=== PATIENT | male | born 1950 | race Caucasian/White ===

== ENCOUNTER → 2017-11-20 06:22 | Outpatient (CLI) | payer MEDICARE, OTHER, SELFPAY ==
--- NOTE | 2017-11-20 14:36 | STRESSREP ---
Stress Test Report Pharmacologic myocardial perfusion stress test. 67-year-old man with a history of coronary artery disease status post carotid bypass grafting. Medications aspirin omeprazole atorvastatin clopidogrel losartan and metoprolol. Stress protocol: EKG demonstrates normal sinus rhythm with rate of 62 bpm normal intervals and noted resting blood pressure is 138/82 mmHg. 0.4 mg regadenoson was infused per usual protocol followed by rapid intravenous saline flush injection. Continuous EKG monitoring was performed. The maximum heart rate attained was 103 bpm which was 66% of maximum predicted heart rate the maximum workload attained was 1 metabolic equivalent. At rest there were no ST or T-wave changes noted suggest abnormal flow reserve at peak infusion no ST or T-wave changes were noted suggest abnormal flow reserve. Resting blood pressure 138/82 with a final blood pressure 132/82. Myocardial perfusion protocol. 10.0 mCi of technetium 99m sestamibi was injected at rest. 0.4 mg regadenoson was infused per usual protocol peak infusion 36.0 mCi sestamibi was injected stress images were obtained stress and rest images were reconstructed and compared in the short axis vertical long and horizontal long axis. Gated images were also obtained. Perfusion SPECT analysis. Review of the stress images demonstrate normal uptake of tracer noted in the septum lateral wall and inferior wall on the stress images. There is a moderate amount of perfusion defect noted in the mid anterior wall. This is present on the stress images and on the resting images improves to suggest a moderate amount of ischemia. Gated SPECT analysis: Gated ejection fraction is noted to be 64%. Conclusion Abnormal pharmacologic myocardial perfusion stress test with evidence of mid anterior ischemia medium-sized zone. Preserved ejection fraction
== END ==
PROVIDERS: Family Provider Family Medicine; PCP Family Medicine; Visit Provider Internal Medicine Cardiovascular Disease
DX: I25.10 Atherosclerotic heart disease of native coronary artery without angina pectoris (principal); Z95.1 Presence of aortocoronary bypass graft
CPT/HCPCS: 78452; 93017; A9500; A4216; J2785

== ENCOUNTER → 2017-11-22 09:55 | Outpatient (CLI) | payer MEDICARE, OTHER, SELFPAY ==
--- NOTE | 2017-11-22 09:57 | RAD_ITS ---
STUDY: X-RAY CHEST REASON FOR EXAM: Male, 67 years old. Abnormal stress test. TECHNIQUE: PA and lateral views of the chest. COMPARISON: None. FINDINGS: The lungs are clear and expanded. Scattered calcified granulomas. There is no demonstrated pleural abnormality. Normal size heart. Normal mediastinum and sury. Normal visualized pulmonary arteries. Normal visualized aortic arch and descending thoracic aorta. There are diffuse degenerative changes of the visualized thoracic spine. Normal visualized ribs, clavicles, and shoulders. There is no demonstrated abnormality of the visualized soft tissue structures of the upper abdomen. RAD/Chest PA and Lateral IMPRESSION: Normal x-ray examination of the chest. Electronically Signed: Tung Dick MD at 12:54 EST Tel [phone], Service support ,
[2017-11-22 11:14] LABS: Hematocrit 43.4 % (40-54); Hemoglobin 14.4 g/dl (13.0-16.5); Mean Corp Hgb Conc 33.2 g/gl (32-36); Mean Corpuscular Hgb 30.3 pg (27.0-32.0); Mean Corpuscular Volume 91.2 fL (80-94); Platelet Count 318 K/mm3 (150-450); RBC Distribution Width SD 46.1 fl (35.1-43.9); Red Blood Count 4.76 M/mm3 (4.6-6.2); White Blood Count 6.9 K/mm3 (4.4-11.0)
[2017-11-22 11:16] LABS: Scan Indicated on CBC? Y/N NO
[2017-11-22 11:25] LABS: International Normalized Ratio 1.1; Prothrombin Time (Protime)PT. 13.7 SECONDS (11.7-14.9)
[2017-11-22 11:33] LABS: Anion Gap 9 (5-15); BUN 26 mg/dL (7-18); Calcium,Total 8.7 mg/dL (8.5-10.1); Chloride 104 mmol/L (98-107); Creatinine, Serum 0.93 mg/dL (0.70-1.30); EST Glomerular Filtration Rate 87 mL/min (>60); Est Glom Filt Rate - Afr Amer 105 mL/min (>60); Glucose 96 mg/dL (74-106); Potassium 3.7 mmol/L (3.5-5.1); Sodium Level 139 mmol/L (136-145)
== END ==
PROVIDERS: Family Provider Family Medicine; PCP Family Medicine; Visit Provider Internal Medicine Cardiovascular Disease
DX: I25.10 Atherosclerotic heart disease of native coronary artery without angina pectoris (principal); R94.39 Abnormal result of other cardiovascular function study; Z98.890 Other specified postprocedural states; Z79.01 Long term (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 of anticoagulants
CPT/HCPCS: 36415; 71046; 80048; 85027; 85610

== ENCOUNTER → 2017-11-27 08:52 | Day surgery (SDC) | payer MEDICARE, OTHER, SELFPAY ==
[2017-11-24 14:23] VITALS: BMI 33.2
--- NOTE | 2017-11-27 12:43 | CL.D_ITS ---
Patient Name: RUSLAN DE LA GARZA Study Date: 11/27/2017 Performing: Baldev Freed MD Ht: 70.86 inches 180 cm : 1950 Wt: 238.1 lbs 108 kg Age: 67 Gender: male BSA: 2.27 PROCEDURE(S) PERFORMED XH79-BAT/COR CLINICAL PROFILE AND INDICATIONS INDICATIONS: 67-year-old man with a history of abnormal stress test, 74 YO LADY WITH CHEST PAIN Stress/Imaging Standard Exercise Stress Test: Yes Result: Positive Low RiskStress/Image Study Per formed: No CAD Presentations: No Sxs, no angina. Symptom unlikely to be ischemic. CONCLUSIONS Non obstructive coronary arteries Mild CAD with no high grade obstructive disease RECOMMENDATIONS Medical therapy Medical therapy DESCRIPTION OF PROCEDURE The patient arrived to the procedure lab. The risks and benefits of the procedure as well as a full d escription of our services here and current unavailability of surgical backup were fully explained to the patient and/or their significant other prior to the catheterization. The Timeout was completed, verifying the correct patient and procedure. The patient's procedural site was prepped and draped in the usual fashion. Local anesthetic was given subcutaneously to right radial region with Lidocaine 2% . Using a modified Seldinger technique, arterial access was obtained via the right radial artery, a 6 Fr sheath was inserted. Left Coronary Artery selective angiography was performed in multiple views u sing a 5 Fr. 4.0 [place]aver[place] catheter. Right Coronary Artery selective angiography was then performed in mu ltiple views using a 5 Fr. 4.0 [place]ly catheter.The arterial sheath was pulled and a TR Band was applie d for hemostasis w15ml air CORONARY ANGIOGRAPHY DOMINANCE: Right Dominant LEFT HEART ASSESSMENT Left Ventricular Ejection Fraction: by Echo 60 % Normal LV wall motion Normal Left Ventricular systolic function LEFT MAIN: Angiographically normal, Angiographically normal LEFT ANTERIOR DECENDING ARTERY: Mild luminal irregularities, Mild luminal irregularities less than 30 % MID LAD: Moderate luminal irregularities up to 50% DIAGONAL 1: Ostial - 70 % Stenosis CIRCUMFLEX ARTERY: Angiographically normal, Mild luminal irregularities RIGHT CORONARY ARTERY: Mild luminal irregularities Mild luminal irregularities less than 30% COMPLICATIONS No Complications PROCEDURE MEDICATIONS Fentanyl 50 mcg IV Versed 1 mg IV Oxygen: 2 L/min via nasal cannula Heparin diluted in 23cc Heparinized saline. Patient given 10cc IA of this solution. 11/27/2017 12:13: 28 Verapamil 2.5mg, Ntg 100mcgs, 2000 units of Heparin diluted in 23cc Heparinized saline. Patient give n 10cc IA of this solution. 11/27/2017 12:13:28 SUMMARY OF HEMODYNAMIC DATA Time AIR REST ECG 11:35:51 AO 107/65 (80) SA 12:15:35 ECG 12:33:16 Signed By Baldev Freed MD On 11/27/2017 2:39:11 PM Baldev Freed MD
== END ==
PROVIDERS: Visit Provider Internal Medicine Cardiovascular Disease
DX: R94.39 Abnormal result of other cardiovascular function study (principal); I25.10 Atherosclerotic heart disease of native coronary artery without angina pectoris; I25.2 Old myocardial infarction; E78.5 Hyperlipidemia, unspecified; I10 Essential (primary) hypertension; I25.810 Atherosclerosis of coronary artery bypass graft(s) without angina pectoris; Z98.61 Coronary angioplasty status; Z79.82 Long term (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 of aspirin; Z79.02 Long term (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 of antithrombotics/antiplatelets; Z79.899 Other long term (current) drug therapy
CPT/HCPCS: 93454; 99152; 99153; J7040; Q9967; C1769; C1894

== ENCOUNTER 2018-02-03 16:41 | Emergency (ER) | payer MEDICARE, OTHER, SELFPAY ==
[2018-02-03 16:42] VITALS: BP 153/78; PULSE 83; RESP 20; TEMP 36.5; O2SAT 96; BMI 33.1
--- NOTE | 2018-02-03 17:03 | ED.VISSUMM ---
- ER Visit Summary Date of Service: 02/03/18 Chief Complaint: Left leg pain and swelling History of Present Illness: The patient is a 67 M with a 3 day history of left calf pain and swelling. Patient states he did have a recent cortisone injection in his left knee. 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 He also has had recent exercise on a bike and is not sure if he may pulled a deep muscle. He does not remember a specific injury. Patient has no personal history of DVTs. He denies chest pain or shortness of breath. Physical Examination: Vital signs are unremarkable. Patient sitting upright in bed no acute distress. Heart is regular rate and rhythm. Lung sounds are clear. Abdomen is soft nontender. Lower extremity examination was mild tenderness to the left lower leg with slight edema when compared to the right. There is no erythema or warmth. He has strong distal pulses. There are no palpable cords. Test Results: [] Emergency Department Course and Treatment: I discussed with the patient the concern for possible DVT. He presents on a Monday afternoon we do not have ultrasound available. He will be given a dose of Lovenox for tonight and will return tomorrow for outpatient ultrasound of his leg. Order for this has been written. Treatment Plan: [] Disposition: Discharge Impression: Left leg edema This note was generated with [employer] dictation software. It may contain incorrect words, spelling, and punctuation that were not noted in review of the chart prior to signing ED Disposition - Plan for ED Patient: Chief Complaint: Lower Extremity Injury Referrals: Saul Rubio [Primary Care Provider] -
--- NOTE | 2018-02-03 17:05 | ED.DEP ---
ED Disposition - Plan for ED Patient: Disposition: Home or Assisted Living Chief Complaint: Lower Extremity Injury Instructions: ED Leg Swelling Unilateral Referrals: Saul Rubio [Primary Care Provider] - Additional Instructions: You will receive a phone call tomorrow morning to come in for an outpatient ultrasound of your leg.
[2018-02-03] MEDS: Enoxaparin 100 MG/ML Syringe SC (17:12)
[2018-02-03 17:31] VITALS: BP 141/85; PULSE 86; RESP 14; O2SAT 95
== END 2018-02-03 17:38 | disposition home or self-care (01) ==
PROVIDERS: Emergency Provider Emergency Medicine
DX: R60.0 Localized edema (principal); I25.2 Old myocardial infarction; Z87.891 Personal history of nicotine dependence; Z79.82 Long term (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 of aspirin
CPT/HCPCS: 96372; 99282

== ENCOUNTER → 2018-02-04 09:59 | Outpatient (CLI) | payer MEDICARE, OTHER, SELFPAY ==
--- NOTE | 2018-02-04 10:30 | VDLE_ITS ---
Reason For Study: LEG SWELLING RIGHT LEFT CFV is compressible, spontaneous, phasic, GSV is normal. competent and demonstrates normal CFV is compressible, spontaneous, phasic, augmentation. competent, and demonstrates normal Procedure augmentation. Exam performed in department. FV is compressible, spontaneous, phasic, competent and demonstrates normal augmentation. POP V is compressible, spontaneous, phasic, competent and demonstrates normal augmentation. T/P Trunk is compressible. PTV is compressible. LT PerV is compressible. Interpretation Summary Deep veins of the left lower extremity are patent and compressible segmentally. There is no evidence of left lower extremity deep vein thrombosis. Valvular competence appears intact within the proximal deep venous system on the left . The left greater saphenous vein appears patent and compressible segmentally. Ordering Physician: Jeaneth Guillaume Referring Physician: Luan Rubio M.D. Performed By: Kaylan Law RVT
== END ==
PROVIDERS: Visit Provider Emergency Medicine
DX: M79.89 Other specified soft tissue disorders (principal)
CPT/HCPCS: 93971

== ENCOUNTER 2018-03-05 06:38 | Inpatient (IN) | payer MEDICARE, OTHER, SELFPAY ==
[2018-02-26 14:04] VITALS: BP 126/81; PULSE 89; RESP 17; TEMP 37.1; O2SAT 97; BMI 34.1
[2018-02-26 14:49] LABS: Hematocrit 44.6 % (40-54); Hemoglobin 14.7 g/dl (13.0-16.5); Mean Corpuscular Hgb 29.5 pg (27.0-32.0); Mean Corpuscular Volume 89.6 fL (80-94); Mean Platelet Vol. 9.8 fl (6.2-12.0); Platelet Count 250 K/mm3 (150-450); RBC Distribution Width CV 13.4 % (11.6-14.6); RBC Distribution Width SD 43.9 fl (35.1-43.9); Red Blood Count 4.98 M/mm3 (4.6-6.2); Scan Indicated on CBC? Y/N NO; White Blood Count 7.4 K/mm3 (4.4-11.0)
[2018-02-26 15:10] LABS: Anion Gap 6 (5-15); BUN 20 mg/dL (7-18); BUN/Creat Ratio 18.5 RATIO (10-20); Calcium,Total 8.8 mg/dL (8.5-10.1); Chloride 106 mmol/L (98-107); Creatinine, Serum 1.08 mg/dL (0.70-1.30); EST Glomerular Filtration Rate 73 mL/min (>60); Est Glom Filt Rate - Afr Amer 88 mL/min (>60); Estimated Creatinine Clearance 70.41 ml/min; Glucose 148 mg/dL (74-106); Sodium Level 140 mmol/L (136-145)
--- NOTE | 2018-03-02 10:27 | CASEMGMT ---
RN CM Preop Call. Introduced role of CM via phone. Pt scheduled for LTKR on 03/05/18. DC planning needs assessment completed. DME available: walker, crutches DME needs: none identified Therapy on dc: [facility] Transportation: RN CM will f/u with pt after surgery and will assist with any dc needs. Ashley BECKERN RN
[2018-03-05] VITALS (10 sets, daily range): BP systolic 104–165; BP diastolic 62–99; PULSE 67–93; RESP 16–18; TEMP 35.9–37.1; O2SAT 94–98; BMI 34.1
[2018-03-05] MEDS: oxyCODONE HCl Cr 10 MG Tablet PO (07:21)
[2018-03-05] MEDS: Acetaminophen 500 MG Tablet 1000 MG PO ×3 (07:21→21:04)
[2018-03-05] MEDS: Lactated Ringers 1,000 ML 999 ML IV (07:39)
[2018-03-05] MEDS: Cefazolin 2 GM in 0.9% Normal Saline 100 ML IV (08:51)
--- NOTE | 2018-03-05 09:03 | OP.PCM_ITS ---
Report of Operation Date of Procedure: 03/05/18 Pre-Operative Diagnosis: Severe end-stage osteoarthritis left knee Post-Operative Diagnosis: Severe end-stage osteoarthritis left knee Surgery/Procedure Performed:: Total knee arthroplasty left Description of Surgical Findings:: Severe varus alignment with end-stage osteoarthritis medial compartment periarticular osteophytes eburnation of bone tricompartmentally disulfurizer tender: Eloy Talbot Type of Anesthesia:: Spinal Anesthesiologist: Ishan Griffith Special Medications: TXA Specimen's removed: Bone and soft tissue Estimated Blood Loss (mL): 100 Fluids Replaced: See anesthesia report Description of Procedure: Implants: [employer] triathlon size 7 CR femur, 7 tibia, 38 mm patella all cemented with Simplex. Size 13 mm CS articulating surface Indications: Patient has severe end-stage osteoarthritis diagnosed via x-rays in the knee. They have failed all forms of conservative measures including activity modification, injections, anti-inflammatories, use of assistive device. The patient has pain that affects on a daily basis and prevents him from doing things that they enjoyed. They have elected to undergo the above procedure. The risks of the procedure were discussed at length and their questions were answered. Procedure description: The patient was greeted in the preoperative area. The left knee was then marked with a surgical marker. Patient was then taken to or [address]. They were administered a dose of antibiotics as well as tranexamic acid. Once adequate anesthesia was obtained and airway was secured to placed in supine position on the operating room table. A well-padded tourniquet was placed on the affected extremity. Leg was then prepped and draped in the usual sterile fashion from the knee down. Ioban was used on the skin. Surgical timeout was then performed and confirmed with all present. Six-inch Esmarch was used to examine the limb and tourniquet was then inflated to 250 mmHg. A longitudinal incision was then planned and carried out in the anterior aspect of the knee. The dissection was then carried the length of the incision the extensor mechanism was identified. Standard medial parapatellar arthrotomy was then performed revealing severe eburnation of bone and periarticular osteophytes. There is complete loss of cartilage especially in the medial compartment with varus alignment. Anterior fat pad was removed for visualization purposes and the anterior medial aspect of the tibia was skeletonized for exposure to the knee. The knee was then flexed the patella was inverted. Opening reamer was then used in the femur approximately 1 cm anterior to the attachment of the PCL. The intramedullary valgus wand was then placed in the femur set at 5? of valgus. The distal femoral cutting jig was then applied to the femur with anticipated resection of approximately 8 mm. This was then made with a oscillating saw. The sizing guide was then placed referencing off the posterior condyles and also reference off the epicondylar axis. This was measured and the appropriate size 4-in-1 cutting jig was then applied to the distal femur. Anterior posterior cuts were made followed by the anterior and posterior chamfer cuts. These bony pieces and fragments were removed and placed on the back table. Posterior retractor was then utilized and the tibia was subluxed anteriorly. Extramedullary tibial alignment jig was then applied to the tibia referencing off the medial one third of the tibial tubercle the anterior tibial spine the middle aspect of the tibiotalar joint. Also reference off patient's [place] slope. The tibial cutting jig was then pinned with anticipated resection of 2 mm off of the deficient medial tibial condyle. This cut was made with the oscillating saw. Once this was complete a laminar sanding line operator was utilized in both medial lateral meniscus were removed and a posterior capsular osteophytes were also removed. Posterior capsule release was performed in the posterior capsule as well as the geniculate arteries are treated with the aqua Rk. The tibia was incised and the appropriate sized tibial tray was then pinned. The femoral box cutting jig was then applied to the femur and the box was prepared removing a portion of the intercondylar notch. The femoral trial was then placed and the knee was trialed. Full flexion-extension were easily achieved. The knee seemed to balance quite nicely. Any remaining osteophytes were removed at this time. Once this was complete the patella was everted and the Aries patella reaming device was then utilized the patella was then placed in the appropriate jig and reamer was then used to remove approximately 9 mm of the undersurface of the patella. A soft tissue remaining was in the way was removed and patella trial was then placed listed maintain excellent tracking using the no thumbs technique. The tibial tray at this point was punched to accommodate the fins of the final implant. At this point cement was mixed on the back table. The trial components were removed and the knee was copiously irrigated. Did use a cocktail of injection for postoperative pain control. The final components were then cemented in the standard fashion and excess cement was removed with cement removal tools and patellar clamp is placed in the patella. As the cement had cured in full extension tourniquet was deflated and hemostasis was perfect with Bovie cautery as well as the aqua Manus. Needle is once again trialed with different size polyethylenes to ensure the full range of motion was achieved as well as excellent balancing ligamentously was achieved. At this point the knee was copiously irrigated. Final implant was then inserted locking mechanism was engaged and confirmed to be locked. The arthrotomy was then closed with #1 Vicryl aggravate type fashion interrupted. Subcutaneous tissue was closed with 0 Vicryl and surgical janet were placed in the skin. A occlusive silver impregnated dressing was then applied followed by well-padded sterile dressing secured with an Kenyon wrap. The patient was taken to the PACU in stable condition. No complications known at this time. Postoperatively we will maintain standard total knee postoperative protocol. The use of the physician assistant chief engineer was integral during this procedure. They assisted with positioning placement of the tourniquet retracting closure and placement of the dressing. The procedure would have been much more difficult without their expertise and assistance - Complications None known - Admit VTE Documentation VTE Present on Admission: Yes VTE Mechan Device Prophylaxis: SCD's, Thigh High SANDI Hose VTE Pharm Prophylaxis ordered?: Yes
--- NOTE | 2018-03-05 11:25 | RAD_ITS ---
STUDY: X-RAY - LEFT KNEE REASON FOR EXAM: Male, 67 years old. Total knee replacement. TECHNIQUE: AP and lateral view(s) of the knee. COMPARISON: None. FINDINGS: Normal visualized distal femur. Normal visualized proximal tibia and fibula. Normal proximal tibiofibular articulation. The patient is status post total knee replacement. There is good alignment. Postoperative soft tissue changes. RAD/Knee 1 or 2 Views IMPRESSION: Status post total knee replacement. There is good alignment. Postoperative soft tissue swelling. Electronically Signed: Tung Dick MD at 13:11 EDT Tel [phone], Service support ,
[2018-03-05] MEDS: Lactated Ringers 1,000 ML 125 ML IV (11:53)
[2018-03-05] MEDS: oxyCODONE 5 MG Tablet PO (14:30)
--- NOTE | 2018-03-05 15:37 | CHAPLAIN ---
Type of Pastoral Visit _x__ Initial Visit ___ Follow-up Visit ___ On-call Visit ___ General Patient Visit ___ Spiritual Assessment ___ Family Conference ___ Bereavement ___ Rapid Response ___ Code Blue ___ Other (describe below) Pastoral Care Referral From _x__ Patient ___ Family ___ Nurse ___ Physician ___ Paint Roller Assembler ___ High Heel Builder ___ Other (describe below) Sacrament/Intervention _x__ Active listening ___ Anointing ___ Samaritan ___ Bereavement ___ Communion ___ Jaymie exploration ___ ___ Life review _x__ Prayer ___ Reconciliation ___ Sacrament of Sick _x__ Supportive presence ___ Wedding ___ Other (describe below) Pastoral Comments
[2018-03-05] MEDS: Ketorolac 15 MG/ML Vial IV (16:38)
[2018-03-05] MEDS: Cefazolin 1 GM/50 ML BAG IV (16:42)
[2018-03-05] MEDS: Ondansetron 4 MG/2 ML Vial IV (16:47)
[2018-03-05] MEDS: morphine SR 15 MG Tablet PO (21:03)
[2018-03-05] MEDS: Senna/Docusate Sodium 1 Tablet 2 TABLET PO (21:04)
[2018-03-05] MEDS: Atorvastatin Calcium 80 MG Tablet PO (21:04)
[2018-03-05] MEDS: Pantoprazole Sodium 40 MG Tablet PO (21:04)
[2018-03-05] MEDS: Clopidogrel Bisulfate 75 MG Tablet PO (21:04)
[2018-03-06] VITALS (7 sets, daily range): BP systolic 135–162; BP diastolic 71–86; PULSE 75–94; RESP 16–18; TEMP 36.6–37.4; O2SAT 93–98
[2018-03-06] MEDS: Cefazolin 1 GM/50 ML BAG IV (00:07)
[2018-03-06] MEDS: 0.9% NaCl Peripheral Flush Adult/Peds IV (00:08)
[2018-03-06] MEDS: Ketorolac 15 MG/ML Vial IV (00:10)
[2018-03-06] MEDS: Acetaminophen 500 MG Tablet 1000 MG PO ×3 (05:20→22:47)
[2018-03-06] MEDS: Aspirin 81 MG TAB.CHEW PO (05:21)
[2018-03-06] MEDS: oxyCODONE 5 MG Tablet PO ×3 (05:21→17:02)
[2018-03-06] MEDS: Indomethacin 25 MG Capsule 50 MG PO ×2 (05:22→16:56)
[2018-03-06 06:32] LABS: Hematocrit 39.7 % (40-54); Mean Corp Hgb Conc 32.7 g/gl (32-36); Mean Corpuscular Hgb 29.5 pg (27.0-32.0); Mean Corpuscular Volume 90.2 fL (80-94); Mean Platelet Vol. 9.8 fl (6.2-12.0); Platelet Count 198 K/mm3 (150-450); RBC Distribution Width CV 13.4 % (11.6-14.6); RBC Distribution Width SD 44.4 fl (35.1-43.9); White Blood Count 8.6 K/mm3 (4.4-11.0)
[2018-03-06 06:40] LABS: Scan Indicated on CBC? Y/N NO
[2018-03-06 06:53] LABS: Anion Gap 7 (5-15); BUN 17 mg/dL (7-18); BUN/Creat Ratio 17.6 RATIO (10-20); Calcium,Total 8.5 mg/dL (8.5-10.1); Chloride 103 mmol/L (98-107); Creatinine, Serum 0.97 mg/dL (0.70-1.30); EST Glomerular Filtration Rate 83 mL/min (>60); Est Glom Filt Rate - Afr Amer 100 mL/min (>60); Estimated Creatinine Clearance 78.39 ml/min; Glucose 102 mg/dL (74-106); Potassium 3.8 mmol/L (3.5-5.1); Sodium Level 141 mmol/L (136-145)
--- NOTE | 2018-03-06 07:20 | PCM.PN.ORT ---
Subjective: Patient sitting at bedside. Pain well managed. Denies chest pain, calf pain, nausea vomiting, or shortness of breath. No other complaints Objective: Dressings clean dry intact. Negative signs and symptoms of DVT. Vital signs labs within normal limits. Patient is afebrile neurovascular is otherwise intact. - Physical Exam General: Alert, Oriented x3, Cooperative HEENT: PERRLA Oral: Moist Mucosa Neurological: Cranial nerves II-XII grossly intact Psych/Mental Status: Normal Affect, Alert and oriented to time, place, person, mood and affect Vital Signs Temp Pulse Resp BP Pulse Ox 97.8 F 81 16 144/85 H 98 03/06/18 04:30 03/06/18 04:30 03/06/18 04:30 03/06/18 04:30 03/06/18 04:30 Oxygen Delivery Method Room Air Weight: 107.8 kg Body Mass Index (BMI) 34.1 Intake and Output for Last 24 Hours 03/04/18 03/05/18 03/06/18 23:59 23:59 23:59 Intake Total 2575 / 2575 Output Total 850 / 850 Balance 1725 / 1725 Laboratory Tests Past 24 Hrs 03/06/18 03/06/18 05:45 05:45 WBC 8.6 RBC 4.40 L Hgb 13.0 Hct 39.7 L MCV 90.2 MCH 29.5 MCHC 32.7 RDW 13.4 RDW Differential 44.4 H Plt Count 198 MPV 9.8 Sodium 141 Potassium 3.8 Chloride 103 Carbon Dioxide 31.0 Anion Gap 7 BUN 17 Creatinine 0.97 Estim Creat Clear Calc 78.39 Est GFR (MDRD) Af Amer 100 Est GFR (MDRD) Non-Af 83 BUN/Creatinine Ratio 17.6 Glucose 102 Calcium 8.5 Medical Necessity - Tobacco Use Smoking Status: Never smoker Assessment/Plan Status post left total knee. Plan 1. Continue all pain medications as prescribed 2. Begin physical therapy today, weight-bear as tolerated with walker. 3. Continue Plavix and baby aspirin as prescribed for postop DVT prophylaxis 4. Encourage incentive spirometry 5. Probable discharge home tomorrow.
--- NOTE | 2018-03-06 09:07 | PCA ---
THERAPY WORKING WITH PT
[2018-03-06] MEDS: morphine SR 15 MG Tablet PO ×2 (10:09→22:50)
[2018-03-06] MEDS: Losartan Potassium 50 MG Tablet PO (10:11)
[2018-03-06] MEDS: HYDROCHLOROTHIAZIDE 12.5 MG CAPSULE PO (10:11)
[2018-03-06] MEDS: Pantoprazole Sodium 40 MG Tablet PO (10:11)
[2018-03-06] MEDS: Metoprolol(XL)Succ 25 MG Tablet PO (10:12)
[2018-03-06] MEDS: Senna/Docusate Sodium 1 Tablet 2 TABLET PO ×2 (10:12→22:47)
[2018-03-06] MEDS: Famotidine 20 MG Tablet PO (10:12)
--- NOTE | 2018-03-06 10:49 | CASEMGMT ---
NOELLE WILKINS Face to Face with patient for initial transition planning/care coordination assessment. RN FRANKY introduced self and role at [facility]. Patient lying in bed, alert and oriented. Patient willing to participate in assessment and is able to answer all questions appropriately. Care providers, pharmacy, and demographics verified. See link attached. Patient wishes to discharge home and is setup with [facility] for outpatient therapy. Patient states he has no further needs or concerns at this time. CM to follow for discharge planning needs that may arise. Disposition Plan: Patient to discharge home with outpatient therapy, family support, and follow-up plans in place.
--- NOTE | 2018-03-06 14:22 | PCA ---
pt in therapy
[2018-03-06] MEDS: Clopidogrel Bisulfate 75 MG Tablet PO (22:47)
[2018-03-06] MEDS: Atorvastatin Calcium 80 MG Tablet PO (22:47)
[2018-03-07 03:21] VITALS: BP 137/72; PULSE 79; RESP 16; TEMP 36.5; O2SAT 94
[2018-03-07] MEDS: oxyCODONE 5 MG Tablet PO ×2 (03:25→08:37)
[2018-03-07 03:30] VITALS: PULSE 79
[2018-03-07 05:49] LABS: Hematocrit 38.4 % (40-54); Mean Corp Hgb Conc 33.9 g/gl (32-36); Mean Corpuscular Hgb 30.7 pg (27.0-32.0); Mean Corpuscular Volume 90.8 fL (80-94); Mean Platelet Vol. 10.1 fl (6.2-12.0); Platelet Count 215 K/mm3 (150-450); RBC Distribution Width CV 13.2 % (11.6-14.6); RBC Distribution Width SD 43.6 fl (35.1-43.9); Red Blood Count 4.23 M/mm3 (4.6-6.2)
[2018-03-07] MEDS: Acetaminophen 500 MG Tablet 1000 MG PO (05:51)
[2018-03-07 06:06] LABS: Scan Indicated on CBC? Y/N NO
[2018-03-07 08:30] VITALS: BP 147/87; PULSE 79; RESP 18; TEMP 36.5; O2SAT 95
[2018-03-07] MEDS: Senna/Docusate Sodium 1 Tablet 2 TABLET PO (08:38)
[2018-03-07] MEDS: Losartan Potassium 50 MG Tablet PO (08:38)
[2018-03-07] MEDS: Aspirin 81 MG TAB.CHEW PO (08:38)
[2018-03-07] MEDS: Famotidine 20 MG Tablet PO (08:38)
[2018-03-07 08:39] VITALS: PULSE 75
[2018-03-07] MEDS: Metoprolol(XL)Succ 25 MG Tablet PO (08:39)
[2018-03-07] MEDS: Indomethacin 25 MG Capsule 50 MG PO (08:39)
[2018-03-07] MEDS: HYDROCHLOROTHIAZIDE 12.5 MG CAPSULE PO (08:39)
[2018-03-07] MEDS: morphine SR 15 MG Tablet PO (10:44)
--- NOTE | 2018-03-07 12:15 | PN.ORTHO_ITS ---
Subjective: Patient sitting at bedside with his . Pain is well-managed. No complaints. Ready for discharge home Objective: Dressings clean dry intact. Negative signs and symptoms of DVT. Patient is afebrile, neurovascular is intact. Vital signs labs all within normal limits. - Physical Exam General: Alert, Oriented x3, Cooperative HEENT: PERRLA Oral: Moist Mucosa Neurological: Cranial nerves II-XII grossly intact Psych/Mental Status: Normal Affect, Alert and oriented to time, place, person, mood and affect Vital Signs Temp Pulse Resp BP Pulse Ox 97.7 F L 75 18 147/87 H 95 03/07/18 08:30 03/07/18 08:39 03/07/18 08:30 03/07/18 08:30 03/07/18 08:30 Oxygen Delivery Method Room Air Weight: 107.8 kg Body Mass Index (BMI) 34.1 Intake and Output for Last 24 Hours 03/05/18 03/06/18 03/07/18 23:59 23:59 23:59 Intake Total 2575 / 2575 1580 / 1580 450 / 450 Output Total 850 / 850 175 / 175 975 / 975 Balance 1725 / 1725 1405 / 1405 -525 / -525 Laboratory Tests Past 24 Hrs 03/07/18 05:16 WBC 8.0 RBC 4.23 L Hgb 13.0 Hct 38.4 L MCV 90.8 MCH 30.7 MCHC 33.9 RDW 13.2 RDW Differential 43.6 Plt Count 215 MPV 10.1 Medical Necessity - Tobacco Use Smoking Status: Never smoker Assessment/Plan Status post left total knee. Plan 1. Continue all pain medications as prescribed 2. Continue physical therapy at [facility] , weight-bear as tolerated with walker. 3. Continue Plavix and baby aspirin as prescribed preoperatively for postop DVT prophylaxis 4. Follow-up as scheduled 5. Discharge home today
--- NOTE | 2018-03-07 12:20 | PCM.DC.TKR ---
Discharge Diet: No Restrictions Discharge Activity: May Not Drive, May Shower, Use Walker May shower in (days): 1 Ice area for (Minutes): 20 - each hour while awake. Weight Bearing Status: Weight bearing as tolerated Elevate: Operative Extremity Additional Activity Instructions:: Wear elastic stockings for 2 weeks after your surgery. Call your doctor if your incision/area has: Continuous Slow Oozing, Sudden Increased Bleeding, Increased Pain/ Swelling, Increased Redness, Foul Smelling Discharge Call your doctor if you observe: Fever of 101 or Higher, Coldness, Increased Pain - in extremity, Numbness or Tingling, Change in Color, Calf discomfort, Uncontrolled pain Change Dressing in (Days):: 0 - and daily as needed. Remove Dressing in (days):: 8 Cleanse incision/area with: Soap & Water Allergies/Adverse Reactions: Allergies No Known Allergies Allergy (Verified 02/26/18 13:53) Medications to take at Discharge aspirin 81 mg tablet,delayed release 81 mg PO QDAY 11/21/17 atorvastatin 80 mg tablet 80 mg PO QHS 11/21/17 clopidogrel 75 mg tablet 75 mg PO QHS 11/21/17 losartan 50 mg-hydrochlorothiazide 12.5 mg tablet 1 tab PO QDAY 11/21/17 metoprolol succinate ER 25 mg tablet,extended release 24 hr 25 mg PO QDAY tab 11/21/17 nitroglycerin 0.4 mg sublingual tablet 0.4 mg SUBLINGUAL Q5-15M PRN 11/21/17 omeprazole 40 mg capsule,delayed release 40 mg PO QHS 11/21/17 Indomethacin [Indocin] 50 mg PO BID 02/26/18 Acetaminophen [Tylenol] 1,000 mg PO Q8 #90 tab 03/07/18 Aspirin [Aspirin, Baby] 81 mg PO DAILY@0800 tab.chew 03/07/18 Clopidogrel Bisulfate [Plavix] 75 mg PO QHS tablet 03/07/18 Oxycodone [Oxyir] 5 - 10 mg PO Q6H PRN PRN 7 Days #60 tab 03/07/18 morphine SR tablet [Ms Contin] 15 mg PO BID 7 Days tab 03/07/18 The following prescriptions were given: Oxycodone [Oxyir] 5 - 10 mg PO Q6H PRN PRN 7 Days #60 tab PRN Reason: Mod-Severe Pain (4-1010) Acetaminophen [Tylenol] 1,000 mg PO Q8 #90 tab morphine SR tablet [Ms Contin] 15 mg PO BID 7 Days tab Primary Care Physician: Saul Rubio [Primary Care Provider] - Please Follow Up With: Eloy Talbot PA-C When: as scheduled (see pink sheet)
== END 2018-03-07 13:42 | disposition home or self-care (01) | DRG 470 ==
PROVIDERS: Admitting Provider Orthopaedic Surgery; Visit Provider Orthopaedic Surgery
PROC: 0SRD0J9 Replacement of Left Knee Joint with Synthetic Substitute, Cemented, Open Approach (ICD-10-PCS; CPT 27447; principal; 2018-03-05 08:20)
DX: M17.12 Unilateral primary osteoarthritis, left knee (principal); I10 Essential (primary) hypertension; I25.2 Old myocardial infarction; M10.9 Gout, unspecified; E78.00 Pure hypercholesterolemia, unspecified; E66.3 Overweight; Z68.34 Body mass index [BMI] 34.0-34.9, adult; K21.9 Gastro-esophageal reflux disease without esophagitis; Z95.5 Presence of coronary angioplasty implant and graft; Z79.82 Long term (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 of aspirin; Z79.899 Other long term (current) drug therapy
CPT/HCPCS: 36415; 73560; 80048; 85027; 87077; 87081; 97110; 97116; 97162; 97165; 97530; 97535; C1776; J7120; A4216; J2405

== ENCOUNTER 2019-09-17 18:26 | Inpatient (IN) | payer MEDICARE, OTHER, SELFPAY ==
[2019-08-29 08:36] VITALS: BMI 32.8
[2019-09-17] VITALS (8 sets, daily range): BP systolic 105–165; BP diastolic 67–87; PULSE 97–132; RESP 16–27; TEMP 37.3–38.4; O2SAT 91–98; BMI 33.7; BMI 33.8; BMI 33.2
--- NOTE | 2019-09-17 19:37 | EKG12_ITS ---
Test Reason : Blood Pressure : / mmHG Vent. Rate : 116 BPM Atrial Rate : 116 BPM P-R Int : 182 ms QRS Dur : 074 ms QT Int : 304 ms P-R-T Axes : 048 044 038 degrees QTc Int : 422 ms Sinus tachycardia Nonspecific T wave abnormality Abnormal ECG Confirmed by BLAINE SAM ([id number]), story editor JUANJO QUINTANILLA ([id number]) on 09/22/2019 9:11:07 AM Referred By: Kyrie Lomeli Confirmed By:BLAINE SAM
--- NOTE | 2019-09-17 19:38 | CT_ITS ---
STUDY: CT ABDOMEN AND PELVIS WITHOUT CONTRAST REASON FOR EXAM: Male, 68 years old. Fever and urinary retention RADIATION DOSAGE (If Supplied By Facility): CTDIvol = ( 13.25 ) mGy, DLP = ( 1072.81 ) mGycm TECHNIQUE: Transaxial images were obtained from the dome of the diaphragm to the symphysis pubis without oral contrast, and without intravenous contrast. Sagittal and coronal images were reconstructed. Individualized dose optimization techniques were used for this CT. COMPARISON: None. FINDINGS: Minor atelectasis within the dependent portion of the lungs.. Heart size is normal. There is minor calcification of the coronary arteries. Mild nonspecific fatty infiltration without mass or bile duct dilatation. Normal gallbladder and extrahepatic biliary system. Multiple tiny granulomatous calcifications within normal size spleen. Diffuse fatty infiltrated pancreas. Normal bilateral adrenal glands. Normal right kidney. Normal left kidney. Normal visualized stomach. Normal small intestine. Diverticular disease of the descending and sigmoid colon without evidence for acute diverticulitis. The appendix is visualized and appears normal. Atherosclerotic changes of the aorta without evidence for aneurysm. Normal inferior vena cava. Normal retroperitoneum. There is nonspecific prominence of the prostate and seminal vesicles. There is stranding in the adjacent fat which may be consistent with prostatitis and possibly cystitis The bladder is incompletely distended containing Bob catheter. Small bilateral fat-containing inguinal hernias . Lumbar spine demonstrates advanced spondylosis. CT/Abdomen/Pelvis without Cont IMPRESSION: Findings which may be consistent with nonspecific prostatitis and possibly cystitis status post Bob catheter insertion. Diverticular disease of the descending and sigmoid colon without evidence for acute diverticulitis Other findings as above Electronically Signed: Eze Hassan MD at 21:08 EST , Service support ,
[2019-09-17] MEDS: Acetaminophen 500 MG Tablet 1000 MG PO (19:48)
[2019-09-17 20:16] LABS: Color, Urine Yellow (Yellow); Glucose, Dipstick Normal (Normal); Ketone-Dipstick Negative (Negative); Leukocyte Esterase-Dipstick 500 /ul (Negative); Mucous, Urine 0 SEEN /hpf (<or=2+); Nitrite-Dipstick Negative (Negative); Occult Blood-Urine 250 /ul (Negative); Protein-Dipstick 30 mg/dl (Negative); Urine Bilirubin Dipstick Negative (Negative); Urine Clarity Cloudy (Clear); Urine Urobilinogen Normal (Normal)
[2019-09-17] MEDS: 0.9% Normal Saline 1,000 ML 999 ML IV ×3 (20:23→22:37)
[2019-09-17 20:28] LABS: Bacteria 1+ /hpf (None Seen); Red Blood Cells-Urine 5-10 SEEN /hpf (0-5); Squamous Epithelial Cells - UA 0-5 SEEN /hpf (0-5); White Blood Cells 25-50 SEEN /hpf (0-5)
[2019-09-17 20:30] LABS: Absolute Lymphocyte Count 0.63 X10^3/uL (0.83-4.51); Absolute Neutrophil Count 13.4 X10^3/uL (2.0-7.7); Basophil# 0.04 X10^3/uL; Basophil% 0.2 % (0-1); Eosinophil# 0.29 X10^3/uL; Eosinophils% 1.8 % (0-5); Hematocrit 41.5 % (40-54); Lymphocyte # 0.63 X10^3/ul (4.0); Lymphocyte % 3.9 % (19-41); Mean Corp Hgb Conc 33.7 g/dL (32-36); Mean Platelet Vol. 9.5 fl (6.2-12.0); Monocyte# 1.58 X10^3/uL; Monocyte% 9.9 % (0-10); NRBC Flagged by Analyzer 0 % (0-5); Neutrophil # 13.39 X10^3/uL (2.7-7.7); Neutrophil % 83.6 % (47-70); POSITIVE DIFFERENTIAL YES; POSITIVE MORPHOLOGY YES; Platelet Count 239 K/mm3 (150-450); RBC Distribution Width CV 12.7 % (11.6-14.6); RBC Distribution Width SD 43.1 fl (35.1-43.9); Red Blood Count 4.51 M/mm3 (4.6-6.2)
[2019-09-17 20:38] LABS: Differential Indicated SCAN CRITERIA MET; International Normalized Ratio 1.1; Prothrombin Time (Protime)PT. 13.8 SECONDS (11.7-14.9)
[2019-09-17 20:39] LABS: Partial Thromboplast Time 23.7 Seconds (24.1-36.2)
[2019-09-17 20:48] LABS: ALB/GLOB Ratio 1.4 RATIO (0.9-2.4); AST(SGOT) 26 U/L (15-37); Alanine Aminotransfer ALT/SGPT 47 U/L (16-61); Albumin, Serum 4.1 g/dL (3.2-5.0); Alkaline Phosphatase 79 U/L (45-117); Anion Gap 9 (5-15); BUN 25 mg/dL (7-18); Calcium,Total 8.8 mg/dL (8.5-10.1); Chloride 106 mmol/L (98-107); Creatinine, Serum 1.25 mg/dL (0.70-1.30); EST Glomerular Filtration Rate 61 mL/min (>60); Est Glom Filt Rate - Afr Amer 74 mL/min (>60); Estimated Creatinine Clearance 61.91 ml/min; Glucose 130 mg/dL (74-106); Potassium 3.5 mmol/L (3.5-5.1); Protein, Total 7.1 g/dL (6.4-8.2); Sodium Level 139 mmol/L (136-145)
[2019-09-17 20:57] LABS: Lactic Acid 2.1 mmol/L (0.4-2.0)
[2019-09-17 20:59] LABS: Differential Comment SCANNED
--- NOTE | 2019-09-17 21:13 | ED.VIS.GEN ---
History of Present Illness Chief Complaint: Complaint Narrative: Patient presenting for evaluation secondary to urinary hesitancy. Patient states that over the course of the last 24 hours he has felt as if he could not urinate. He endorses that he is been having some subjective fevers and chills. He denies any abdominal pain or flank pain associated with this. He reports that he is only able to empty small amounts of urine, but denies hematuria associated with this. No prior similar episodes in the past. No exacerbating relieving factors. Review of systems otherwise negative. Past Medical History - Allergies and Home Meds Allergies/Adverse Reactions: Allergies No Known Allergies Allergy (Verified 09/17/19 18:28) Primary Care Physician: Saul Rubio [Primary Care Provider] - Past Medical History: - - Coronary artery disease, hypertension, hyperlipidemia Lives: Spouse/ Significant Other Smoking Status: Never smoker Review of Systems General: Reports: Chills, Fever Eyes: Denies: Visual changes - bilaterally, Diplopia ENT: Denies: Rhinorrhea, Sore throat Cardiovascular: Denies: Chest pain, Palpitations Respiratory: Denies: Dyspnea, Cough, Dyspnea on exertion Gastrointestinal: Denies: Abdominal pain, Nausea, Vomiting, Diarrhea, Melena, Hematochezia Genitourinary: Reports: Dysuria Musculoskeletal: Denies: Back pain, Extremity Pain Skin: Denies: Rash, Wounds Neurological: Denies: Headache, Weakness, Numbness Psych: Denies: Depression Endocrine: Denies: Polydipsia Hematologic: Denies: Easy bruising, Easy bleeding Allergy: Denies: Swelling of the mouth Physical Exam Vital Signs/Narrative: Vital Signs Temp Pulse Resp BP Pulse Ox 09/17/19 21:07 99.5 F H 104 H 18 122/69 H 95 09/17/19 20:23 99.7 F H 108 H 27 H 105/67 97 09/17/19 20:20 99.7 F H 110 H 26 H 105/67 91 09/17/19 19:33 118 H 18 96 09/17/19 18:29 99.2 F H 132 H 16 146/87 H 93 Inital Vital Signs reviewed: Yes General: Well nourished, Well developed, No Acute Distress Head: Normocephalic, Atraumatic Eyes: Perrl, EOMI ENT: Moist mucous membranes, No rhinorrhea Neck: Supple, Nontender Cardiovascular: Regular rate, Tachycardia Respiratory: No distress, CTA bilaterally, Chest nontender Abdomen: Soft, Nontender, Nondistended, Normal bowel sounds Back: Nontender, Normal Inspection Extremities: Nontender, No edema Skin: Normal color, No rash Neurological: Alert, Oriented x3, Cranial nerves II-XII grossly intact, Normal Strength, Normal Sensation Psychological: Normal affect, Normal Mood Diagnostic/Tx/Re-eval - EKG Initial EKG Interpretation: - - Sinus tachycardia with a rate of 116. Nonspecific T wave changes are noted throughout the leads. No evidence of ST elevation or ischemia. - Medical Decision Making Patient presenting for evaluation secondary to urinary hesitancy. Bladder scan was done he only had 80 cc of urine, Bob catheter was placed urine specimen was obtained. Urine was found to be infected. Patient was found to have a white count of 16 and mild elevation of his lactic acid. He was given fluid resuscitation and had improvement of his heart rate at reevaluation at 2100. CT abdomen and pelvis shows cystitis versus prostatitis. Patient has symptomatology of sepsis at this point I believe he requires admission. Patient was given a dose of Rocephin, Flomax and will be admitted under the hospitalist. ED Disposition - Plan for ED Patient: Disposition: Acute Care Hospital [facility] Diagnosis: Sepsis, Urinary tract infection
[2019-09-17] MEDS: Ceftriaxone 1 GM/50 ML BAG IV (21:22)
[2019-09-17] MEDS: Tamsulosin HCl 0.4 MG Capsule PO (21:28)
--- NOTE | 2019-09-17 21:31 | PCM.HP.STD ---
History of Present Illness Date of Admission: 09/17/19 Chief Complaint: Weakness and urinary frequency The patient is a 68 year old M with a PMH as below who presents with about a 1 week history of frequency without any dysuria, and then today he also developed weakness and fatigue and just did not feel well. He also felt like he was unable to urinate and presented to the ER. In the ER his found to have 80 cc of urine however the urine did appear to be significantly infected leukocytosis of 16. He did have some subjective fevers and chills at home. He denies any rectal pain or perineal pain. Past Medical History Past Medical History (Chronic Problems): Chronic Problems (Last Reviewed 08/29/19 @ 09:42 by Baldev Freed MD) Atherosclerotic heart disease of [place] coronary artery without angina pectoris (Chronic) [id number] LAD w/ 4.0 x 12 mm Liberte Stent 09/09/2006 Essential (primary) hypertension (Chronic) Hyperlipidemia (Chronic) Medical History: Medical History (Last Reviewed 08/29/19 @ 09:42 by Baldev Freed MD) Atherosclerotic heart disease of [place] coronary artery without angina pectoris (Chronic) I25.10 [id number] LAD w/ 4.0 x 12 mm Liberte Stent 09/09/2006 History of non-ST elevation myocardial infarction (NSTEMI) (Resolved) Onset Date: 09/09/06 I25.2 Essential (primary) hypertension (Chronic) I10 Hyperlipidemia (Chronic) E78.5 Hernia K46.9 Obesity E66.9 Abnormal nuclear stress test (Resolved) R94.39 History of myocardial infarction (Inactive) I25.2 Allergies No Known Allergies Allergy (Verified 09/17/19 18:28) Home Medications: Ambulatory Orders Medication Instructions Recorded atorvastatin 80 mg tablet 80 mg PO QHS 11/21/17 clopidogrel 75 mg tablet 75 mg PO QHS 11/21/17 losartan 50 mg-hydrochlorothiazide 1 tab PO QDAY 11/21/17 12.5 mg tablet metoprolol succinate ER 25 mg 25 mg PO QDAY tab 11/21/17 tablet,extended release 24 hr nitroglycerin 0.4 mg sublingual 0.4 mg SUBLINGUAL Q5-15M PRN 11/21/17 tablet omeprazole 40 mg capsule,delayed 40 mg PO QHS 11/21/17 release Aspirin [Aspirin, Baby] 81 mg PO DAILY@0800 tab.chew 03/07/18 escitalopram 20 mg tablet 20 mg PO DAILY tab 08/29/19 Surgical History: Surgical History (Last Reviewed 08/29/19 @ 09:42 by Baldev Freed MD) History of coronary artery stent placement (Resolved) Onset Date: 09/09/06 Z95.5 ZZC-MON-Byic LAD w/ 4.0 x 12 mm Liberte Stent 09/09/2006 H/O knee surgery Z98.890 Lives: Spouse/ Significant Other Smoking Status: Never smoker Alcohol: None Drugs: None - *Family History Maternal Family History: Family History (Last Reviewed 08/29/19 @ 09:42 by Baldev Freed MD) Father Myocardial infarction CAD (coronary artery disease) Mother Hx of CABG CAD (coronary artery disease) Brother Hypertension Brother Hypertension Review of Systems Constitutional: Reports: Chills, Fever, Weakness, Fatigue HEENT: Denies: Head Aches, Sinus Congestion, Sinus Drainage Cardiovascular: Denies: Chest Pain, Palpitations Respiratory: Denies: Cough, Shortness of breath at rest, Sputum production Gastrointestinal: Denies: Abdominal Pain, Nausea, Vomiting Genitourinary: Reports: Frequency. Denies: Dysuria Musculoskeletal: Denies: Joint Pain, Joint Tenderness Skin: Denies: Rash, Wounds Neurological: Denies: Numbness, Tingling, Focal weakness Psychiatric: Denies: Anxiety, Depression Hematologic/ Lymphatic: Denies: Easy Bruising, Easy Bleeding VTE Information - Inpt Only VTE Present on Admission: No Patient Problems: Active and Suspected Problems (Last Reviewed 08/29/19 @ 09:42 by Baldev Freed MD) Sepsis (Acute) Urinary tract infection (Acute) - Physical Exam Vitals/I&O's: Vital Signs Temp Pulse Resp BP Pulse Ox 99.5 F H 102 H 18 122/67 H 97 09/17/19 21:24 09/17/19 21:24 09/17/19 21:24 09/17/19 21:24 09/17/19 21:24 Oxygen Flow Rate (L/min) 2 Oxygen Delivery Method Room Air Weight: 242 lb Body Mass Index (BMI) 33.7 Intake and Output for Last 24 Hours 09/15/19 09/16/19 09/17/19 23:59 23:59 23:59 Intake Total 1000 / 1000 Output Total 0 / 0 Balance 1000 / 1000 General: Alert, Oriented x3, Cooperative, No apparent distress HEENT: Atraumatic, PERRLA, EOMI, Normocephalic Oral: Moist Mucosa Neck: Supple, No JVD Lungs: Clear to auscultation, Normal air movement, No rhonchi, No wheeze, No rales, Diminished Cardiovascular: Regular rate, Regular Rhythm, Normal S1, Normal S2, No murmurs Abdomen: Soft, Non Tender, Non-Distended, No Hepato-splenomegaly Extremities: No edema, Capillary Refill Less than 3 Seconds Skin: No rashes, No breakdown Neurological: Neuro grossly intact, Sensory exam intact to light touch and pain Psych/Mental Status: Normal Affect, Appropriate Laboratory Results 09/17/19 20:05: Urine Color Yellow, Urine Clarity Cloudy, Urine pH 5.0, Ur Specific [place] 1.020, Urine Protein 30 H, Urine Glucose (UA) Normal, Urine Ketones Negative, Urine Occult Blood 250 H, Urine Nitrite Negative, Urine Bilirubin Negative, Urine Urobilinogen Normal, Ur Leukocyte Esterase 500 H, Urine RBC 5-10 SEEN, Urine WBC 25-50 SEEN, Ur Squamous Epith Cells 0-5 SEEN, Urine Bacteria 1+, Urine Mucus 0 SEEN 09/17/19 20:15: Lactic Acid 2.1 H 09/17/19 20:20: WBC 16.0 H, RBC 4.51 L, Hgb 14.0, Hct 41.5, MCV 92.0, MCH 31.0, MCHC 33.7, RDW Std Deviation 43.1, RDW Coeff of Kristen 12.7, Plt Count 239, MPV 9.5, Immature Gran % (Auto) 0.600, Neut % (Auto) 83.6 H, Lymph % (Auto) 3.9 L, [place] % (Auto) 9.9, Eos % (Auto) 1.8, Baso % (Auto) 0.2, Absolute Neuts (auto) 13.4 H, Absolute Lymphs (auto) 0.63 L, Nucleated RBC % 0, Differential Comment SCANNED, Diff Path Review February09/17/19 20:20: PT 13.8, INR 1.1, APTT 23.7 L 12/03/19 20:20: Sodium 139, Potassium 3.5, Chloride 106, Carbon Dioxide 24.0, Anion Gap 9, BUN 25 H, Creatinine 1.25, Estim Creat Clear Calc 61.91, Est GFR (MDRD) Af Amer 74, Est GFR (MDRD) Non-Af 61, BUN/Creatinine Ratio 20.0, Glucose 130 H, Calcium 8.8, Total Bilirubin 0.70, AST 26, ALT 47, Alkaline Phosphatase 79, Total Protein 7.1, Albumin 4.1, Globulin 3.0, Albumin/Globulin Ratio 1.4 Current Medications Sodium Chloride () 1,000 mls @ 999 mls/hr IV .Q1H1M LAN; Protocol Stop: 09/17/19 22:40 Last Admin: 09/17/19 21:14 Dose: 999 mls/hr Documented by: Assessment/Plan All Active Problems (Last Reviewed 08/29/19 @ 09:42 by Baldev Freed MD) Sepsis (Acute) Urinary tract infection (Acute) History of coronary artery stent placement (Resolved 09/09/06) History of non-ST elevation myocardial infarction (NSTEMI) (Resolved 09/09/06) Abnormal nuclear stress test (Resolved) 1. Sepsis secondary to UTI/BPH -We will DC the Bob that was placed in the ER start the patient on Flomax as he has signs and symptoms of BPH -We will start the patient on Rocephin and await urine culture as well as a blood culture -Continue with IV fluids, lactic acid was 2.1 2. CAD status post stent in 2005/HTN/HLD -Pressures are stable, will hold his losartan/hydrochlorothiazide -He with aspirin, Plavix, Lipitor, and metoprolol 3. GERD -Stable -Continue with PPI 4. Depression/anxiety -Stable -Continue with escitalopram DVT: Lovenox Code Visit Inpatient E&M: 22111 Init Hosp L2
[2019-09-18] VITALS (13 sets, daily range): BP systolic 108–131; BP diastolic 54–65; PULSE 79–124; RESP 14–22; TEMP 36.9–38; O2SAT 93–94
[2019-09-18 00:25] LABS: Reflex Lactate? Y
[2019-09-18] MEDS: 0.9% Normal Saline 1,000 ML 125 ML IV ×3 (00:30→17:52)
[2019-09-18] MEDS: Acetaminophen 325 MG Tablet 650 MG PO ×3 (01:01→21:04)
[2019-09-18] MEDS: Atorvastatin Calcium 80 MG Tablet PO ×2 (01:02→21:03)
[2019-09-18] MEDS: Pantoprazole Sodium 40 MG Tablet PO ×2 (01:02→21:03)
[2019-09-18] MEDS: Clopidogrel Bisulfate 75 MG Tablet PO ×2 (01:02→21:03)
[2019-09-18 01:07] LABS: Lactic Acid 3.5 mmol/L (0.4-2.0)
[2019-09-18] MEDS: 0.9% Normal Saline 1,000 ML 999 ML IV (01:15)
[2019-09-18 06:54] LABS: Absolute Lymphocyte Count 0.87 X10^3/uL (0.83-4.51); Absolute Neutrophil Count 11.7 X10^3/uL (2.0-7.7); Basophil# 0.02 X10^3/uL; Basophil% 0.1 % (0-1); Hematocrit 35.6 % (40-54); Hemoglobin 11.9 g/dL (13.0-16.5); Lymphocyte # 0.87 X10^3/ul (4.0); Lymphocyte % 6.2 % (19-41); Mean Corp Hgb Conc 33.4 g/dL (32-36); Mean Corpuscular Hgb 31.2 pg (27.0-32.0); Mean Corpuscular Volume 93.2 fL (80-94); Mean Platelet Vol. 9.7 fl (6.2-12.0); Monocyte# 1.33 X10^3/uL; Monocyte% 9.5 % (0-10); NRBC Flagged by Analyzer 0 % (0-5); Neutrophil # 11.67 X10^3/uL (2.7-7.7); Neutrophil % 83.4 % (47-70); POSITIVE MORPHOLOGY YES; Platelet Count 182 K/mm3 (150-450); RBC Distribution Width CV 13.2 % (11.6-14.6); RBC Distribution Width SD 44.9 fl (35.1-43.9); Red Blood Count 3.82 M/mm3 (4.6-6.2)
[2019-09-18 07:05] LABS: Differential Indicated SCAN CRITERIA MET
[2019-09-18 07:07] LABS: Anion Gap 6 (5-15); BUN 16 mg/dL (7-18); BUN/Creat Ratio 16.7 RATIO (10-20); Calcium,Total 7.7 mg/dL (8.5-10.1); Chloride 110 mmol/L (98-107); Creatinine, Serum 0.96 mg/dL (0.70-1.30); EST Glomerular Filtration Rate 83 mL/min (>60); Est Glom Filt Rate - Afr Amer 101 mL/min (>60); Estimated Creatinine Clearance 80.62 ml/min; Glucose 122 mg/dL (74-106); Potassium 3.3 mmol/L (3.5-5.1); Sodium Level 141 mmol/L (136-145)
[2019-09-18] MEDS: Metoprolol(XL)Succ 25 MG Tablet PO (08:52)
[2019-09-18] MEDS: Aspirin 81 MG TAB.CHEW PO (08:52)
[2019-09-18] MEDS: Enoxaparin 40 MG/0.4 ML Syringe SC (08:52)
[2019-09-18] MEDS: Escitalopram Oxalate 20 MG Tablet PO (08:52)
--- NOTE | 2019-09-18 10:39 | CASEMGMT ---
RN CM SR. MANAGER CM to room to meet with patient for initial transition planning/care coordination assessment. RN FRANKY introduced self and role at [facility]. Pt voices understanding and consents to assessment at this time. Pt resting in bed in no distress at this time. @ bedside. Pt is A/O at this time and answers all questions appropriately. Care providers, pharmacy, and demographics verified/updated at this time. PCP: Dr Saul Rubio Specialists: Dr Freed--Cardiology Preferred Pharmacy: [facility] Insurance: [employer], Other Commercial Prescription Benefit: Yes Living Will/HPOA: States does not have LW or HCPOA . Interested in more information and would like to talk to NOLAN to complete paperwork. NOLAN Kent, made aware. LNOK: , Mirian. 2 sons: Marie Living Arrangements: Lives with in one-story home. Independent w/personal ADL's. /pt share home mgmt tasks. supportive. Transportation: Pt states drives self and states no transportation concerns at this time. , Mirian also drives. DME: Denies using any DME and denies needs. HHC/SNF: No history of either. No needs identified. Pt wishes to return home and states has no concerns with going home at time of discharge. CM to follow for any discharge planning/needs. Pt/ voice no concerns/needs at this time. Advised them to ask for CM if any questions/concerns/needs arise. They voice understanding. Pt plan: Home Plan: Home Genevieve WELCH RN, CM
[2019-09-18] MEDS: Ciprofloxacin 400 MG/200 ML BAG 200 MG IV ×2 (11:00→21:03)
[2019-09-18 12:33] LABS: Pathologist Review Reviewed
--- NOTE | 2019-09-18 13:20 | PCM.PN.HOSP ---
Patient Problems: Active and Suspected Problems (Last Reviewed 08/29/19 @ 09:42 by Baldev Freed MD) Sepsis (Acute) Urinary tract infection (Acute) Reason for Visit: Pt resting comfortably in bed NAD. Ongoing chills overnight. Pt had presented with chills and frequency that progressed to inability to void at home. This is now resolved. No hx new sex partners or unprotected sex. No rectal pain, no abdominal pain, no dysuria. Vitals/I&O's: Vital Signs Temp Pulse Resp BP Pulse Ox 99.1 F 100 14 119/65 93 09/18/19 08:22 09/18/19 08:52 09/18/19 08:22 09/18/19 08:22 09/18/19 08:22 Oxygen Flow Rate (L/min) 2 Oxygen Delivery Method Room Air Weight: 238 lb 1.588 oz Body Mass Index (BMI) 33.2 Intake and Output for Last 24 Hours 09/16/19 09/17/19 09/18/19 23:59 23:59 23:59 Intake Total 3050 / 3150 2400 / 2400 Output Total 0 / 400 1200 / 1200 Balance 3050 / 2750 1200 / 1200 General: Alert, Oriented x3, Cooperative HEENT: Atraumatic, PERRLA, EOMI, Normocephalic Neck: Supple, No JVD, Negative Carotid Bruits Lungs: Clear to auscultation, Normal air movement Cardiovascular: Regular rate, No murmurs Abdomen: Bowel Sounds Present, Soft, Non Tender Extremities: No edema, Capillary Refill Less than 3 Seconds Skin: No rashes, No breakdown Musculoskeletal: No Tenderness to Palpation of Joints or Extremities Neurological: Cranial nerves II-XII grossly intact Psych/Mental Status: Normal Affect, Appropriate, Alert and oriented to time, place, person, mood and affect Microbiology Past 72 Hours 09/17/19 20:05 Urine Catheter - Catheter Urine Culture - Preliminary Presumptive E. coli 09/17/19 20:20 Blood Culture (Wb) - Left Wrist Blood Culture - Preliminary Laboratory Results 09/17/19 20:05: Urine Color Yellow, Urine Clarity Cloudy, Urine pH 5.0, Ur Specific [place] 1.020, Urine Protein 30 H, Urine Glucose (UA) Normal, Urine Ketones Negative, Urine Occult Blood 250 H, Urine Nitrite Negative, Urine Bilirubin Negative, Urine Urobilinogen Normal, Ur Leukocyte Esterase 500 H, Urine RBC 5-10 SEEN, Urine WBC 25-50 SEEN, Ur Squamous Epith Cells 0-5 SEEN, Urine Bacteria 1+, Urine Mucus 0 SEEN 09/17/19 20:15: Lactic Acid 2.1 H 09/17/19 20:20: WBC 16.0 H, RBC 4.51 L, Hgb 14.0, Hct 41.5, MCV 92.0, MCH 31.0, MCHC 33.7, RDW Std Deviation 43.1, RDW Coeff of Kristen 12.7, Plt Count 239, MPV 9.5, Immature Gran % (Auto) 0.600, Neut % (Auto) 83.6 H, Lymph % (Auto) 3.9 L, [place] % (Auto) 9.9, Eos % (Auto) 1.8, Baso % (Auto) 0.2, Absolute Neuts (auto) 13.4 H, Absolute Lymphs (auto) 0.63 L, Nucleated RBC % 0, Differential Comment SCANNED, Diff Path Review Reviewed 09/17/19 20:20: PT 13.8, INR 1.1, APTT 23.7 L 09/17/19 20:20: Sodium 139, Potassium 3.5, Chloride 106, Carbon Dioxide 24.0, Anion Gap 9, BUN 25 H, Creatinine 1.25, Estim Creat Clear Calc 61.91, Est GFR (MDRD) Af Amer 74, Est GFR (MDRD) Non-Af 61, BUN/Creatinine Ratio 20.0, Glucose 130 H, Calcium 8.8, Total Bilirubin 0.70, AST 26, ALT 47, Alkaline Phosphatase 79, Total Protein 7.1, Albumin 4.1, Globulin 3.0, Albumin/Globulin Ratio 1.4 09/18/19 00:23: Lactic Acid 3.5 H 09/18/19 06:36: WBC 14.0 H, RBC 3.82 L, Hgb 11.9 L, Hct 35.6 L, MCV 93.2, MCH 31.2, MCHC 33.4, RDW Std Deviation 44.9 H, RDW Coeff of Kristen 13.2, Plt Count 182, MPV 9.7, Immature Gran % (Auto) 0.800, Neut % (Auto) 83.4 H, Lymph % (Auto) 6.2 L, [place]cle[place] % (Auto) 9.5, Eos % (Auto) 0.0, Baso % (Auto) 0.1, Absolute Neuts (auto) 11.7 H, Absolute Lymphs (auto) 0.87, Nucleated RBC % 0 09/18/19 06:36: Sodium 141, Potassium 3.3 L, Chloride 110 H, Carbon Dioxide 25.0, Anion Gap 6, BUN 16, Creatinine 0.96, Estim Creat Clear Calc 80.62, Est GFR (MDRD) Af Amer 101, Est GFR (MDRD) Non-Af 83, BUN/Creatinine Ratio 16.7, Glucose 122 H, Calcium 7.7 L Current Medications Acetaminophen (Tylenol) 650 mg PO Q4H PRN PRN PRN Reason: FEVER Last Admin: 09/18/19 01:01 Dose: 650 mg Documented by: Aspirin (Aspirin, Baby) 81 mg PO DAILY@0800 [facility] Last Admin: 09/18/19 08:52 Dose: 81 mg Documented by: Atorvastatin Calcium (Lipitor) 80 mg PO QHS [facility] Last Admin: 09/18/19 01:02 Dose: 80 mg Documented by: Clopidogrel Bisulfate (Plavix) 75 mg PO QHS [facility] Last Admin: 09/18/19 01:02 Dose: 75 mg Documented by: Enoxaparin Sodium (Lovenox) 40 mg SC DAILY [facility] Last Admin: 09/18/19 08:52 Dose: 40 mg Documented by: Escitalopram Oxalate (Lexapro) 20 mg PO DAILY [facility] Last Admin: 09/18/19 08:52 Dose: 20 mg Documented by: Sodium Chloride () 1,000 mls @ 125 mls/hr IV .Q8H [facility] Last Admin: 09/18/19 08:53 Dose: 125 mls/hr Documented by: Sodium Chloride () 250 mls @ 15 mls/hr IV .[id number] PRN PRN Reason: Saline Flush Ciprofloxacin (Cipro) 400 mg in 200 mls @ 200 mls/hr IV Q12 [facility] Last Infusion: 09/18/19 12:00 Dose: Infused Documented by: Metoprolol Succinate (Toprol Xl ([place]eta [place])) 25 mg PO DAILY [facility] Last Admin: 09/18/19 08:52 Dose: 25 mg Documented by: Nitroglycerin (Nitrostat) 0.4 mg SUBLINGUAL Q5M PRN PRN Reason: chest pain Pantoprazole Sodium (Protonix) 40 mg PO QHS [facility] Last Admin: 09/18/19 01:02 Dose: 40 mg Documented by: Sodium Chloride () 10 - 40 ml IV UD PRN PRN Reason: SALINE FLUSH Tamsulosin HCl (Flomax) 0.4 mg PO DAILY@1730 [facility] Medical Necessity - Tobacco Use Smoking Status: Never smoker Assessment/Plan All Active Problems (Last Reviewed 08/29/19 @ 09:42 by Baldev Freed MD) Sepsis (Acute) Urinary tract infection (Acute) History of coronary artery stent placement (Resolved 09/09/06) History of non-ST elevation myocardial infarction (NSTEMI) (Resolved 09/09/06) Abnormal nuclear stress test (Resolved) 1. Acute severe sepsis (present on admission) 2/2 Acute prostatitis - luekocytosis improved. Prostatitis on CT. + UA. + Urinary symptoms. Follow cultures. Rocephin to Cipro for better prostate penetrance. Continue flomax. Pt overall improved. at admission fever, tachycardia, leukocytosis, lactic acidosis. -Urine culture with presumptive E coli >100,000 -Blood culture with 1 anaerobic bottle Gram negative Rods. Presumed bacteremic. 2. CAD prior stent - asa/plavix/statin/metoprolol 3. HTN - stable 4. HLD - statin 5. GERD - protonix 6. Depression/Anxiety - lexapro DVT ppx: lovenox DC planning: follow cultures. This patient was seen by Andrea Adame PA-C under the supervision of Dr. Conklin.
--- NOTE | 2019-09-18 13:59 | CASEMGMT ---
SW assisted pt in completing LW/POA forms. Pt put Mirian as healthcare POA. SW gave pt originals and copies, and placed a copy in pt's chart. SHAHID Gray
--- NOTE | 2019-09-18 15:26 | CHAPLAIN ---
Type of Pastoral Visit _x__ Initial Visit ___ Follow-up Visit ___ On-call Visit ___ General Patient Visit ___ Spiritual Assessment ___ Family Conference ___ Bereavement ___ Rapid Response ___ Code Blue ___ Other (describe below) Pastoral Care Referral From _x__ Patient ___ Family ___ Nurse ___ Physician ___ Musical Instruments Assembler ___ Medical Editor ___ Other (describe below) Sacrament/Intervention _x__ Active listening ___ Anointing ___ Lutheran ___ Bereavement ___ Communion _x__ Jaymie exploration ___ _x__ Life review _x__ Prayer ___ Reconciliation ___ Sacrament of Sick ___ Supportive presence ___ Wedding ___ Other (describe below) Pastoral Comments
[2019-09-18] MEDS: Tamsulosin HCl 0.4 MG Capsule PO (17:52)
[2019-09-19 02:59] VITALS: PULSE 78
[2019-09-19 03:00] VITALS: BP 124/57; PULSE 82; RESP 16; TEMP 36.6; O2SAT 93
[2019-09-19] MEDS: 0.9% Normal Saline 1,000 ML 125 ML IV (03:09)
[2019-09-19 05:19] LABS: Absolute Lymphocyte Count 0.97 X10^3/uL (0.83-4.51); Absolute Neutrophil Count 9.3 X10^3/uL (2.0-7.7); Basophil# 0.03 X10^3/uL; Basophil% 0.3 % (0-1); Eosinophil# 0.03 X10^3/uL; Eosinophils% 0.3 % (0-5); Hematocrit 35.7 % (40-54); Hemoglobin 11.7 g/dL (13.0-16.5); Lymphocyte # 0.97 X10^3/ul (4.0); Lymphocyte % 8.3 % (19-41); Mean Corp Hgb Conc 32.8 g/dL (32-36); Mean Corpuscular Hgb 31.2 pg (27.0-32.0); Mean Corpuscular Volume 95.2 fL (80-94); Mean Platelet Vol. 9.8 fl (6.2-12.0); Monocyte# 1.33 X10^3/uL; Monocyte% 11.4 % (0-10); NRBC Flagged by Analyzer 0 % (0-5); Neutrophil # 9.27 X10^3/uL (2.7-7.7); Neutrophil % 79.2 % (47-70); Platelet Count 169 K/mm3 (150-450); RBC Distribution Width SD 45.2 fl (35.1-43.9); Red Blood Count 3.75 M/mm3 (4.6-6.2); White Blood Count 11.7 K/mm3 (4.4-11.0)
[2019-09-19 05:30] LABS: Anion Gap 6 (5-15); BUN 13 mg/dL (7-18); BUN/Creat Ratio 14.3 RATIO (10-20); Calcium,Total 7.7 mg/dL (8.5-10.1); Chloride 111 mmol/L (98-107); Creatinine, Serum 0.91 mg/dL (0.70-1.30); EST Glomerular Filtration Rate 88 mL/min (>60); Est Glom Filt Rate - Afr Amer 107 mL/min (>60); Estimated Creatinine Clearance 85.05 ml/min; Glucose 120 mg/dL (74-106); Potassium 3.5 mmol/L (3.5-5.1); Sodium Level 140 mmol/L (136-145)
[2019-09-19 07:00] VITALS: PULSE 53
--- NOTE | 2019-09-19 07:29 | PN_ITS ---
Patient Problems: Active and Suspected Problems (Last Reviewed 08/29/19 @ 09:42 by Baldev Freed MD) Sepsis (Acute) Urinary tract infection (Acute) Subjective: Patient continues to clinically improve but does note he still has urinary frequency but lessening. He denies any suprapubic discomfort and fever, chills have completely resolved. Discussed plan of care which included continued ciprofloxacin for questionable prostatitis upon discharge with follow-up with urology for review of CT scan and continued close follow-up to delineate if able to de-escalate off of ciprofloxacin earlier. Also discussed given patient ongoing urinary frequency will transition to high-dose twice daily Flomax. Insert ROS. Objective: General: awake, alert, oriented x 3 and cooperative, seated upright in the PCU bed, improved appearance. Skin: normal color, turgor, no icterus, cyanosis. HEENT: AT/NC, EOMI, PERRLA, improved MMM. Lungs: CTA bilaterally, moderate effort, mild decrease BL bases, no rales, ronchi or wheezing. Heart: Improved regular rate and regular rhythm; no gallop, rub audible. Abdomen: soft, obese, NTTP including suprapubic region, ND, normal BS. Extremities: no cyanosis, clubbing, or edema. Neurological: patient awake, alert, oriented x 3; cognitive function intact; pupils equally reactive to light and accomodation; cranial nerves II-XII grossly normal, moving all 4 extremities, no focal deficits, strength preserved. Psychiatric: affect appears normal, no acute evidence of depressive or anxiety feelings. Vitals/I&O's: Vital Signs Temp Pulse Resp BP Pulse Ox 97.9 F 82 16 124/57 H 93 09/19/19 03:00 09/19/19 03:00 09/19/19 03:00 09/19/19 03:00 09/19/19 03:00 Oxygen Flow Rate (L/min) 2 Oxygen Delivery Method Room Air Weight: 238 lb 1.588 oz Body Mass Index (BMI) 33.2 Intake and Output for Last 24 Hours 09/17/19 09/18/19 09/19/19 23:59 23:59 23:59 Intake Total 3050 / 3150 5291.25 / 5291.25 368.75 / 368.75 Output Total 0 / 400 2850 / 2850 Balance 3050 / 2750 2441.25 / 2441.25 368.75 / 368.75 Microbiology Past 72 Hours 09/17/19 20:05 Urine Catheter - Catheter Urine Culture - Preliminary Presumptive E. coli 09/17/19 20:20 Blood Culture (Wb) - Left Wrist Blood Culture - Preliminary Laboratory Results 09/17/19 20:20: Diff Path Review Reviewed 09/19/19 04:45: WBC 11.7 H, RBC 3.75 L, Hgb 11.7 L, Hct 35.7 L, MCV 95.2 H, MCH 31.2, MCHC 32.8, RDW Std Deviation 45.2 H, RDW Coeff of Kristen 13.0, Plt Count 169, MPV 9.8, Immature Gran % (Auto) 0.500, Neut % (Auto) 79.2 H, Lymph % (Auto) 8.3 L, [place] % (Auto) 11.4 H, Eos % (Auto) 0.3, Baso % (Auto) 0.3, Absolute Neuts (auto) 9.3 H, Absolute Lymphs (auto) 0.97, Nucleated RBC % 0 09/19/19 04:45: Sodium 140, Potassium 3.5, Chloride 111 H, Carbon Dioxide 23.0, Anion Gap 6, BUN 13, Creatinine 0.91, Estim Creat Clear Calc 85.05, Est GFR (MDRD) Af Amer 107, Est GFR (MDRD) Non-Af 88, BUN/Creatinine Ratio 14.3, Glucose 120 H, Calcium 7.7 L Current Medications Acetaminophen (Tylenol) 650 mg PO Q4H PRN PRN PRN Reason: FEVER Last Admin: 09/18/19 21:04 Dose: 650 mg Documented by: Aspirin (Aspirin, Baby) 81 mg PO DAILY@0800 [facility] Last Admin: 09/18/19 08:52 Dose: 81 mg Documented by: Atorvastatin Calcium (Lipitor) 80 mg PO QHS [facility] Last Admin: 09/18/19 21:03 Dose: 80 mg Documented by: Clopidogrel Bisulfate (Plavix) 75 mg PO QHS [facility] Last Admin: 09/18/19 21:03 Dose: 75 mg Documented by: Enoxaparin Sodium (Lovenox) 40 mg SC DAILY [facility] Last Admin: 09/18/19 08:52 Dose: 40 mg Documented by: Escitalopram Oxalate (Lexapro) 20 mg PO DAILY [facility] Last Admin: 09/18/19 08:52 Dose: 20 mg Documented by: Sodium Chloride () 1,000 mls @ 125 mls/hr IV .Q8H [facility] Last Admin: 09/19/19 03:09 Dose: 125 mls/hr Documented by: Sodium Chloride () 250 mls @ 15 mls/hr IV .[id number] PRN PRN Reason: Saline Flush Ciprofloxacin (Cipro) 400 mg in 200 mls @ 200 mls/hr IV Q12 [facility] Last Infusion: 09/18/19 22:03 Dose: Infused Documented by: Metoprolol Succinate (Toprol Xl ([place]eta [place])) 25 mg PO DAILY [facility] Last Admin: 09/18/19 08:52 Dose: 25 mg Documented by: Nitroglycerin (Nitrostat) 0.4 mg SUBLINGUAL Q5M PRN PRN Reason: chest pain Pantoprazole Sodium (Protonix) 40 mg PO QHS [facility] Last Admin: 09/18/19 21:03 Dose: 40 mg Documented by: Sodium Chloride () 10 - 40 ml IV UD PRN PRN Reason: SALINE FLUSH Tamsulosin HCl (Flomax) 0.4 mg PO DAILY@1730 [facility] Last Admin: 09/18/19 17:52 Dose: 0.4 mg Documented by: Medical Necessity - Tobacco Use Smoking Status: Never smoker Assessment/Plan All Active Problems (Last Reviewed 08/29/19 @ 09:42 by Baldev Freed MD) Sepsis (Acute) Urinary tract infection (Acute) History of coronary artery stent placement (Resolved 09/09/06) History of non-ST elevation myocardial infarction (NSTEMI) (Resolved 09/09/06) Abnormal nuclear stress test (Resolved) The patient is a 68 y/o M w/ PMHx: CAD s/p CI-BMS-Prox LAD 09/09/2006, HTN, HLD, Obesity who presents to the [facility] ED on 09/17/19 with history of 1 week history of ongoing dysuria, frequency, weakness, fatigue and onset of chills over the last 24 hours worsening. (1) Acute severe sepsis secondary to Acute Presumptive E. Coli ? Prostatitis and Cystitis: ED evaluation with CBC with WBC 16.0 with left shift, lactic acid up to 3.5, urinalysis remarkable with Ucx as noted E. Coli, blood culture x2 pending per ED, CT abdomen and pelvis with findings consistent with a nonspecific prostatitis and possibly cystitis with a Bob catheter in place. Admitted to PCU given presentation, initially maintained on Rocephin transition to ciprofloxacin given concerns for prostatitis on CT scan, continued on IV fluids as well as maintained on Flomax. 09/19/19 CBC w/ WBC 11.7, improving L shift. UCx w/ presumptive E. Coli with noted now vicente-susceptibilities. Would plan discharge to home once on cipro 500 mg BID with rx for 6 weeks if susceptible to cover for possible prostatitis with Urology outpatient close follow-up in order to be able to de-escalate if able. (2) CAD: Status post PCI remotely 2006 to proximal LAD, maintain on aspirin, Plavix, statin, metoprolol, losartan regimen. (3) Hypertension: Continue home regimen including losartan, metoprolol, PRN hydralazine. (4) Hyperlipidemia: Continue home statin regimen. (5) Anxiety and depression: Continue patient home escitalopram regimen. (6) GERD: Maintained on home PPI. (7) DVT Prophylaxis: SCDs, lovenox.
--- NOTE | 2019-09-19 08:25 | PCM.DC ---
- Discharge Diagnoses Current Active Problems: Current Active and Chronic Problems (Last Reviewed 08/29/19 @ 09:42 by Baldev Freed MD) (1) Acute severe sepsis secondary to Acute Presumptive E. Coli ? Prostatitis and Cystitis (2) CAD (3) Hypertension (4) Hyperlipidemia (5) Anxiety and depression (6) GERD (7) Obesity You will use the following diet at home:: Cardiac Your food should be the consistency of: Regular Your liquids should be the consistency of: Regular/Thin Discharge Activity: Return to Normal Activity May resume sexual activity in: - - Once discussed with Urology. Weight Bearing Status: Weight bearing as tolerated Call your doctor if you observe: Fever of 101 or Higher, Inability to urinate, Inability to have a bowel movement, Shortness of breath, Dizziness, Fainting spells, Chest pain, Uncontrolled pain, - - Recurrent suprapubic pain, increased urinary frequency, inability to empty bladder. Instructions: Understanding Urinary Tract Infections (UTIs), Prostate Problems and Related Urinary Symptoms, Urinary Tract Infections in Men, Bacterial Prostatitis Additional Instructions: Currently as discussed will plan discharge on twice daily ciprofloxacin with a duration upon discharge for treatment of possible prostatitis; however, we will have you follow-up closely with urology as may be able to de-escalate office agents more quickly. Allergies/Adverse Reactions: Allergies No Known Allergies Allergy (Verified 09/17/19 18:28) Medications to take at Discharge atorvastatin 80 mg tablet 80 mg PO QHS 11/21/17 clopidogrel 75 mg tablet 75 mg PO QHS 11/21/17 losartan 50 mg-hydrochlorothiazide 12.5 mg tablet 1 tab PO QDAY 11/21/17 metoprolol succinate ER 25 mg tablet,extended release 24 hr 25 mg PO QDAY tab 11/21/17 nitroglycerin 0.4 mg sublingual tablet 0.4 mg SUBLINGUAL Q5-15M PRN 11/21/17 omeprazole 40 mg capsule,delayed release 40 mg PO QHS 11/21/17 Aspirin [Aspirin, Baby] 81 mg PO DAILY@0800 tab.chew 03/07/18 escitalopram 20 mg tablet 20 mg PO DAILY tab 08/29/19 Ciprofloxacin [Cipro] 500 mg PO BID #80 tab 09/19/19 Tamsulosin HCl [Flomax] 0.8 mg PO BID #60 cap 12/05/19 The following prescriptions were given: Ciprofloxacin [Cipro] 500 mg PO BID #80 tab Transmission Status: Pending to [facility]pharmacy #[id number] Tamsulosin HCl [Flomax] 0.8 mg PO BID #60 cap Transmission Status: Pending to [facility]/pharmacy #[id number] Primary Care Physician: Saul Rubio [Primary Care Provider] - Please follow up with your Primary Care Physician in: Follow-up within 3-5 days to review admission and plan of care. Test Results: Test results from this visit will be discussed in further detail at your follow-up appointment, if applicable. Please Follow Up With: Solitario Haile MD When: Please follow-up within 1 week for review of admission, eval ? Prostatitis Proposed Discharge Date: 09/19/19
--- NOTE | 2019-09-19 08:29 | PCM.DC.SUM ---
Discharge Date and Diagnosis - Problem List Patient Problems: Active and Suspected Problems (Last Reviewed 08/29/19 @ 09:42 by Baldev Freed MD) Sepsis (Acute) Urinary tract infection (Acute) Date of Admission: 09/17/19 Date of Discharge: 09/19/19 - Primary Discharge Diagnosis Active and Suspected Problems (Last Reviewed 08/29/19 @ 09:42 by Baldev Freed MD) (1) Acute severe sepsis secondary to Acute E. Coli ? Prostatitis and Cystitis (2) CAD (3) Hypertension (4) Hyperlipidemia (5) Anxiety and depression (6) GERD (7) Obesity - Secondary Discharge Diagnosis Chronic Problems (Last Reviewed 08/29/19 @ 09:42 by Baldev Freed MD) Atherosclerotic heart disease of [place] coronary artery without angina pectoris (Chronic) [id number] LAD w/ 4.0 x 12 mm Liberte Stent 09/09/2006 Essential (primary) hypertension (Chronic) Hyperlipidemia (Chronic) Hospital Course and Treatment Operations: None Procedures: EKG Summary of Care Provided: The patient is a 68 y/o M w/ PMHx: CAD s/p CI-BMS-Prox LAD 09/09/2006, HTN, HLD, Obesity who presented to the [facility] ED on 09/17/19 with history of 1 week history of ongoing dysuria, frequency, weakness, fatigue and onset of chills over the last 24 hours worsening. ED evaluation with CBC with WBC 16.0 with left shift, lactic acid up to 3.5, urinalysis remarkable with Ucx as noted E. Coli, blood culture x2 pending per ED, CT abdomen and pelvis with findings consistent with a nonspecific prostatitis and possibly cystitis with a Bob catheter in place. Admitted to PCU given presentation, initially maintained on Rocephin transition to ciprofloxacin given concerns for prostatitis on CT scan, continued on IV fluids as well as maintained on Flomax which was increased to high dose BID given ongoing frequency, although improved. 09/19/19 CBC w/ WBC 11.7, improving L shift. UCx w/ presumptive E. Coli with noted vicente-susceptibilities.Given patient clinically improved, as discussed, discharged to home on cipro 500 mg BID with rx for 6 weeks w/ close follow-up with Urology outpatient in order to be able to de-escalate if able given concern for prostatitis. Requested also follow-up with PCP within 3-5 days. Patient Problems: Active and Suspected Problems (Last Reviewed 08/29/19 @ 09:42 by Baldev Freed MD) Sepsis (Acute) Urinary tract infection (Acute) - Physical Exam Vitals/I&O's: Vital Signs Temp Pulse Resp BP Pulse Ox 97.9 F 53 L 16 124/57 H 93 09/19/19 03:00 09/19/19 07:00 09/19/19 03:00 09/19/19 03:00 09/19/19 03:00 Oxygen Flow Rate (L/min) 2 Oxygen Delivery Method Room Air Weight: 238 lb 1.588 oz Body Mass Index (BMI) 33.2 Intake and Output for Last 24 Hours 09/17/19 09/18/19 09/19/19 23:59 23:59 23:59 Intake Total 3050 / 3150 5291.25 / 5291.25 368.75 / 368.75 Output Total 0 / 400 2850 / 2850 Balance 3050 / 2750 2441.25 / 2441.25 368.75 / 368.75 Microbiology Past 72 Hours 09/17/19 20:05 Urine Catheter - Catheter Urine Culture - Final Presumptive E. coli 09/17/19 20:20 Blood Culture (Wb) - Left Wrist Blood Culture - Preliminary Laboratory Results 09/17/19 20:20: Diff Path Review Reviewed 09/19/19 04:45: WBC 11.7 H, RBC 3.75 L, Hgb 11.7 L, Hct 35.7 L, MCV 95.2 H, MCH 31.2, MCHC 32.8, RDW Std Deviation 45.2 H, RDW Coeff of Kristen 13.0, Plt Count 169, MPV 9.8, Immature Gran % (Auto) 0.500, Neut % (Auto) 79.2 H, Lymph % (Auto) 8.3 L, [place] % (Auto) 11.4 H, Eos % (Auto) 0.3, Baso % (Auto) 0.3, Absolute Neuts (auto) 9.3 H, Absolute Lymphs (auto) 0.97, Nucleated RBC % 0 09/19/19 04:45: Sodium 140, Potassium 3.5, Chloride 111 H, Carbon Dioxide 23.0, Anion Gap 6, BUN 13, Creatinine 0.91, Estim Creat Clear Calc 85.05, Est GFR (MDRD) Af Amer 107, Est GFR (MDRD) Non-Af 88, BUN/Creatinine Ratio 14.3, Glucose 120 H, Calcium 7.7 L Current Medications Acetaminophen (Tylenol) 650 mg PO Q4H PRN PRN PRN Reason: FEVER Last Admin: 09/18/19 21:04 Dose: 650 mg Documented by: Aspirin (Aspirin, Baby) 81 mg PO DAILY@0800 [facility] Last Admin: 09/18/19 08:52 Dose: 81 mg Documented by: Atorvastatin Calcium (Lipitor) 80 mg PO QHS [facility] Last Admin: 09/18/19 21:03 Dose: 80 mg Documented by: Clopidogrel Bisulfate (Plavix) 75 mg PO QHS [facility] Last Admin: 09/18/19 21:03 Dose: 75 mg Documented by: Enoxaparin Sodium (Lovenox) 40 mg SC DAILY [facility] Last Admin: 09/18/19 08:52 Dose: 40 mg Documented by: Escitalopram Oxalate (Lexapro) 20 mg PO DAILY [facility] Last Admin: 09/18/19 08:52 Dose: 20 mg Documented by: Sodium Chloride () 1,000 mls @ 125 mls/hr IV .Q8H [facility] Last Admin: 09/19/19 03:09 Dose: 125 mls/hr Documented by: Sodium Chloride () 250 mls @ 15 mls/hr IV .[id number] PRN PRN Reason: Saline Flush Ciprofloxacin (Cipro) 400 mg in 200 mls @ 200 mls/hr IV Q12 [facility] Last Infusion: 09/18/19 22:03 Dose: Infused Documented by: Metoprolol Succinate (Toprol Xl (Beta [place])) 25 mg PO DAILY [facility] Last Admin: 09/18/19 08:52 Dose: 25 mg Documented by: Nitroglycerin (Nitrostat) 0.4 mg SUBLINGUAL Q5M PRN PRN Reason: chest pain Pantoprazole Sodium (Protonix) 40 mg PO QHS [facility] Last Admin: 09/18/19 21:03 Dose: 40 mg Documented by: Sodium Chloride () 10 - 40 ml IV UD PRN PRN Reason: SALINE FLUSH Tamsulosin HCl (Flomax) 0.8 mg PO BID [facility] Discharge Activity: Return to Normal Activity May resume sexual activity in: - - Once discussed with Urology. Weight Bearing Status: Weight bearing as tolerated Call your doctor if you observe: Fever of 101 or Higher, Inability to urinate, Inability to have a bowel movement, Shortness of breath, Dizziness, Fainting spells, Chest pain, Uncontrolled pain, - - Recurrent suprapubic pain, increased urinary frequency, inability to empty bladder. Home Medications: Medications to take at Discharge atorvastatin 80 mg tablet 80 mg PO QHS 11/21/17 clopidogrel 75 mg tablet 75 mg PO QHS 11/21/17 losartan 50 mg-hydrochlorothiazide 12.5 mg tablet 1 tab PO QDAY 11/21/17 metoprolol succinate ER 25 mg tablet,extended release 24 hr 25 mg PO QDAY tab 11/21/17 nitroglycerin 0.4 mg sublingual tablet 0.4 mg SUBLINGUAL Q5-15M PRN 11/21/17 omeprazole 40 mg capsule,delayed release 40 mg PO QHS 11/21/17 Aspirin [Aspirin, Baby] 81 mg PO DAILY@0800 tab.chew 03/07/18 escitalopram 20 mg tablet 20 mg PO DAILY tab 08/29/19 Ciprofloxacin [Cipro] 500 mg PO BID #80 tab 09/19/19 Tamsulosin HCl [Flomax] 0.8 mg PO BID #60 cap 09/19/19 Following Prescrptions Were Given to Patient: Ciprofloxacin [Cipro] 500 mg PO BID #80 tab Transmission Status: Pending to [facility]/pharmacy #[id number] Tamsulosin HCl [Flomax] 0.8 mg PO BID #60 cap Transmission Status: Pending to [facility]/pharmacy #[id number] Primary Care Physician: Saul Rubio [Primary Care Provider] - Please follow up with your Primary Care Physician in: Follow-up within 3-5 days to review admission and plan of care. Please Follow Up With: Solitario Haile MD When: Please follow-up within 1 week for review of admission, eval ? Prostatitis Patient Instructions: Prostate Problems and Related Urinary Symptoms, Bacterial Prostatitis, Urinary Tract Infections in Men, Understanding Urinary Tract Infections (UTIs) Disposition: Home Minutes spent on discharge:: 35 Patient Condition:: Fair Medical Necessity - Tobacco Use Smoking Status: Never smoker Meaningful Use Info Meaningful Use Diagnoses (Choose all that apply): None applicable Code Visit Inpatient E&M: 25215 Disch Hosp
[2019-09-19 09:46] VITALS: BP 135/66; PULSE 80; RESP 18; TEMP 36.6; O2SAT 94
[2019-09-19 09:48] VITALS: PULSE 80
[2019-09-19] MEDS: Aspirin 81 MG TAB.CHEW PO (09:48)
[2019-09-19] MEDS: Metoprolol(XL)Succ 25 MG Tablet PO (09:48)
[2019-09-19] MEDS: Escitalopram Oxalate 20 MG Tablet PO (09:48)
[2019-09-19] MEDS: Ciprofloxacin 400 MG/200 ML BAG 200 MG IV (09:49)
[2019-09-19] MEDS: Tamsulosin HCl 0.4 MG Capsule 0.8 MG PO (09:52)
--- NOTE | 2019-09-19 09:57 | PHA.DC.MC ---
Pharmacy Service has performed discharge medication reconciliation and counseling for this patient. 1. CIPROFLOXACIN 500MG PO BID X 40 DAYS 2. TAMSULOSIN 0.8MG PO BID The patient's discharge medication list was reviewed for discrepancies and discrepancies were resolved. Home Medications atorvastatin 80 mg tablet 80 mg PO QHS 11/21/17 clopidogrel 75 mg tablet 75 mg PO QHS 11/21/17 losartan 50 mg-hydrochlorothiazide 12.5 mg tablet 1 tab PO QDAY 11/21/17 metoprolol succinate ER 25 mg tablet,extended release 24 hr 25 mg PO QDAY tab 11/21/17 nitroglycerin 0.4 mg sublingual tablet 0.4 mg SUBLINGUAL Q5-15M PRN 11/21/17 omeprazole 40 mg capsule,delayed release 40 mg PO QHS 11/21/17 Aspirin [Aspirin, Baby] 81 mg PO DAILY@0800 tab.chew 03/07/18 escitalopram 20 mg tablet 20 mg PO DAILY tab 08/29/19 Ciprofloxacin [Cipro] 500 mg PO BID #80 tab 09/19/19 Tamsulosin HCl [Flomax] 0.8 mg PO BID #60 cap 09/19/19 The patient was counseled on the following discharge medications and changes in medications for homegoing were reviewed. The Reason for Use, instructions for use, and potential side effects were reviewed for all new medications. The patient's questions regarding all of their medications were answered. The patient was able to verbally demonstrate an understanding of their discharge medications.
== END 2019-09-19 11:13 | disposition home or self-care (01) | DRG 872 ==
LOC: ED 21:18 → PCU 21:41
PROVIDERS: Physician Assistant; Admitting Provider Family Medicine; Emergency Provider Emergency Medicine; Referring Provider Family Medicine; Visit Provider Family Medicine
DX: A41.51 Sepsis due to Escherichia coli [E. coli] (principal); N30.00 Acute cystitis without hematuria; N41.0 Acute prostatitis; I25.10 Atherosclerotic heart disease of native coronary artery without angina pectoris; R65.20 Severe sepsis without septic shock; E78.5 Hyperlipidemia, unspecified; E66.9 Obesity, unspecified; F32.9 Major depressive disorder, single episode, unspecified; F41.9 Anxiety disorder, unspecified; K21.9 Gastro-esophageal reflux disease without esophagitis; I10 Essential (primary) hypertension; Z95.5 Presence of coronary angioplasty implant and graft; Z68.33 Body mass index [BMI] 33.0-33.9, adult
CPT/HCPCS: 36415; 74176; 80048; 80053; 81001; 83605; 85025; 85610; 85730; 87040; 87077; 87086; 87088; 87186; 93005; 99285; J7030; J0744

== ENCOUNTER → 2021-09-02 08:19 | Outpatient (CLI) | payer MEDICARE, OTHER, SELFPAY ==
[2021-09-04 08:04] LABS: Fats, Neutral Normal (.); Fats, Total Normal (.)
== END ==
PROVIDERS: Referring Provider Internal Medicine Gastroenterology; Visit Provider Internal Medicine Gastroenterology
DX: R19.7 Diarrhea, unspecified (principal)
CPT/HCPCS: 82705

== ENCOUNTER 2021-09-06 08:30 | Outpatient (RCR) | payer MEDICARE, OTHER, SELFPAY ==
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
--- NOTE | 2021-09-07 07:13 | HP.OTDCSUM ---
It has been my pleasure to treat RUSLAN DE LA GARZA under orders from Dr. Hollie Wakefield MD, for the diagnosis of left distal radius fx for a total of 7 visit(s). Please see the following information for a summary of their discharge status. 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 R virology teacher 50#. wrist ROM 75/55. pt states he has returned to his daily occupations at IND level. Patient Goals: Regain Mobility, Regain Strength, Decrease Swelling/Stiffness, Improve Fine Motor Skills Goal:: At 6 weeks s/p will initiate strengthening-. pt will demo a left virology teacher strength at 35# or greater to return to performing ADLs and IADls by d/c Goal:: pt will demo a increase in left wrist ROM by 20* TROM increasing pts ind. with IADLs and ADLs by d/c Goal:: pt will demo a reduction in left wrist swelling by 1cm or greater indicating improvement with edema. Goal:: pt will demo understanding of scar mtg by end of 2nd session to decrease risk of scar adhesions. Plan: Cont POC Discharge Comments: Pt was seen for 7 OT visits following wrist fx. pt has returned to performing ADls and IADls at IND. level and also returned to work with mild difficulties. pt reports 80% improvement- Pt has met OT goals at this time and is d/c with HEP to perform to maintain ROM and strength. pt demo understanding and agree to POC. If there are questions or concerns regarding this patient's occupational therapy, please fell free to call me at [phone]. Thank you for the referral of this patient. Sincerely, Prisca Covington, OTR/L, CHT
== END 2021-09-06 19:00 | disposition home or self-care (01) ==
LOC: OT 08:30
PROVIDERS: Referring Provider Orthopaedic Surgery Hand Surgery; Visit Provider Orthopaedic Surgery Hand Surgery
DX: Z47.89 Encounter for other orthopedic aftercare (principal); S52.502D Unspecified fracture of the lower end of left radius, subsequent encounter for closed fracture with routine healing; X58.XXXD Exposure to other specified factors, subsequent encounter; R19.7 Diarrhea, unspecified
CPT/HCPCS: 82705; 97110; 97140; 97166; 97530

== ENCOUNTER 2021-12-19 02:25 | Emergency (ER) | payer MEDICARE, OTHER, SELFPAY ==
[2021-12-19 02:25] VITALS: BP 141/76; PULSE 77; RESP 15; TEMP 36.7; O2SAT 95; BMI 32.1
[2021-12-19] MEDS: Ondansetron ODT 4 MG Tablet 8 MG PO (03:31)
--- NOTE | 2021-12-19 03:31 | ED.VIS.GI ---
HPI HPI - GI History of Present Illness Chief Complaint: Abd Pain Informant: patient and spouse/S.O. Abdominal Pain/Flank Pain Onset: Today (Presents at 3 AM, pain has been this past day starting in the afternoon) Context: Gradual Onset Timing: Continuous and Waxes and wanes Quality: Aching Location: Diffuse Current Severity: Mild Maximum Severity: Moderate Worsened by: Nothing Relieved by: Nothing Nausea/Vomiting/Emesis GI Symptom: Positive for Nausea and Vomiting Onset: Today Quality: Positive for Nonbilious; Negative for Blood streaks and Coffee ground Severity: Moderate Diarrhea/Melena/Hematochezia GI Symptom: Negative for Diarrhea, Melena and Hematochezia Associated Symptoms Associated Symptoms: Negative for Dysuria, Frequency and Hematuria Narrative Narrative: Patient states he needs to take pancreatic enzyme supplementation and sees a specialist at [facility], and this gives him diarrhea sometimes, he was having more of it couple days ago and so he took too much Imodium, he suggests that he took 12 mg within a single night. Now, he feels like he is constipated, he feels the need to have a bowel movement but is unable to, he has been passing flatus only, and vomiting. Since this has been going on all night the present to the ER for assistance. He did try 1 capful of MiraLAX in 8 ounces of water that did not seem to help anything. No other treatments tried. Prior abdominal surgery includes a herniorrhaphy remotely. [facility] Medical History (Updated 12/19/21 @ 05:[address] Abhishek Douglas MD) Abnormal nuclear stress test Atherosclerotic heart disease of [place] coronary artery without angina pectoris Essential (primary) hypertension Hernia History of myocardial infarction History of non-ST elevation myocardial infarction (NSTEMI) (09/09/06) Hyperlipidemia Obesity Sepsis Urinary tract infection Home Medications atorvastatin 80 mg tablet 80 mg PO QHS 11/21/17 [History Last Taken Unknown] clopidogrel 75 mg tablet 75 mg PO QHS 11/21/17 [History Last Taken 02/25/18] losartan 50 mg-hydrochlorothiazide 12.5 mg tablet 1 tab PO QDAY 11/21/17 [History Last Taken Unknown] metoprolol succinate 25 mg tablet,extended release 24 hr 25 mg PO QDAY tab 11/21/17 [History Last Taken 03/05/18 06:00] nitroglycerin 0.4 mg sublingual tablet 0.4 mg SUBLINGUAL Q5-15M PRN 11/21/17 [History Last Taken Unknown] omeprazole 40 mg capsule,delayed release 40 mg PO QHS 11/21/17 [History Last Taken Unknown] aspirin 81 mg PO DAILY@0800 tab.chew 03/07/18 [Rx Last Taken Unknown] escitalopram oxalate 20 mg tablet 20 mg PO DAILY tab 08/29/19 [History Last Taken Unknown] tamsulosin 0.4 mg capsule 0.4 mg PO DAILY cap 10/22/20 [History Last Taken Unknown] acetaminophen 650 mg tablet,extended release 1,950 mg PO Q12H tab 10/25/21 [History Last Taken Unknown] sour coelho extract 1,000 mg capsule mg PO BID cap 10/25/21 [History Last Taken Unknown] Allergy/AdvReac Type Severity Reaction Status Date / Time No Known Allergies Allergy Verified 10/22/20 08:32 Family History (Reviewed 10/25/21 @ 10:18 by Joseph Link [employer] SUPERVISOR, [employer]IFT SUPERVISOR-C) Father Myocardial infarction CAD (coronary artery disease) Mother Hx of CABG CAD (coronary artery disease) Brother Hypertension Brother Hypertension Surgical History (Updated 12/19/21 @ 03:[address] Abhishek Douglas MD) H/O knee surgery History of coronary artery stent placement (09/09/06) History of knee replacement (2017) History of left heart catheterization (11/27/17) S/P ventral herniorrhaphy Social History Smoking Status: Never smoker alcohol intake: never substance use type: does not use caffeine: Yes Type: coffee Number of servings: 3 what type of physical activity do you participate in: none seatbelt use: always do you feel safe at home: Yes ROS ROS ED Constitutional Constitutional ED: Denies chills or fever(s) Eyes Eyes: Denies change in vision or diplopia ENT ENT ED: Denies rhinorrhea or sore throat Cardiovascular Cardiovascular: Denies chest pain or palpitations Respiratory/Chest Respiratory/Chest: Denies cough or dyspnea Gastrointestinal Gastrointestinal: Reports as per HPI, abdominal pain, constipation, nausea and vomiting Genitourinary Genitourinary ED: Denies dysuria or hematuria Musculoskeletal Musculoskeletal: Denies back pain or neck pain Integumentary Denies abscess or rash Neurologic Neurologic: Denies headache(s), paresthesias or weakness Psychiatric Psychiatric: Denies anxiety or suicidal thoughts EXAM Physical Exam Const Vital Signs: 12/19/21 02:25 12/19/21 04:25 Temperature 98.1 F Temperature Source Temporal Pulse Rate 77 64 Respiratory Rate 15 15 Blood Pressure 141/76 H 124/72 H Blood Pressure Mean 97 89 Pulse Ox 95 91 Oxygen Delivery Method Room Air Positive well nourished and well developed General Appearance ED: well developed and NAD HEENT Reports moist mucous membranes normocephalic and atraumatic Eyes PERRL and EOMs intact bilaterally Neck full ROM and supple Resp normal respiratory effort and clear to auscultation bilaterally Cardio regular rate, regular rhythm and no murmurs GI GI Narrative: Distended soft abdomen. Mildly tender just right and inferior to umbilicus, left upper quadrant, epigastrium. No guarding or rebound tenderness. Auscultation: normoactive bowel sounds Palpation: soft; Negative for pulsatile mass Back/Spine no CVA tenderness General Back: other FROM Extremity normal to inspection General Extremety ED: Negative for edema, pulses abnormal or tenderness General Extremity: Negative for edema or pulses abnormal Neuro oriented x3, CN's II-XII intact bilaterally and no sensory deficits noted Sensorium / Orientation: awake and alert Motor Exam: strength 5/5 throughout Skin no rashes or lesions noted and no wounds MDM MDM MDM Narrative Medical decision making narrative: Given the history I suspect the patient is constipated. However as I discussed with he and his , a bowel obstruction is also in the differential here. After discussing options, they were amenable to trying a soapsuds enema first to see if that helped to have a bowel movement and feel better, and doing more of a work-up and a CT if things did not go well. After the enema he did have a decent bowel movement, and he definitely had significant improvement. His bloating was improved, he says his pain was improved, and he no longer was tender. They prefer not to have the CT scan as he thinks he was constipated which I concur with. If he has worsening symptoms/issues, welcome to return, but for now comfortable with him being discharged. I encouraged him to take some MiraLAX or other laxative in the short-term next day or 2, even if it causes more than usual diarrhea for him, in order to make sure that he is cleaned out. Discharge Plan Triage Chief Complaint: Abd Pain ED Provider: Abhishek Douglas Dx/Rx/DC Orders Clinical Impression: Constipation, Vomiting Instructions: ED Constipation (Adult) Prescriptions: No Action atorvastatin [Lipitor] 80 mg tablet 80 mg PO QHS RF: 0 losartan-hydrochlorothiazide 50-12.5 mg tablet 1 tab PO QDAY RF: 0 metoprolol succinate 25 mg tablet extended release 24 hr 25 mg PO QDAY RF: 0 nitroglycerin 0.4 mg tablet, sublingual 0.4 mg SUBLINGUAL Q5-15M PRN (Reason: Cardiac/Chest Pain) RF: 0 clopidogrel [Plavix] 75 mg tablet 75 mg PO QHS RF: 0 omeprazole 40 mg capsule,delayed release(DR/EC) 40 mg PO QHS RF: 0 escitalopram oxalate 20 mg tablet 20 mg PO DAILY RF: 0 tamsulosin 0.4 mg capsule 0.4 mg PO DAILY RF: 0 Tart Coelho Extract 1,000 mg capsule PO BID RF: 0 acetaminophen 650 mg tablet extended release 1,950 mg PO Q12H RF: 0 aspirin 81 MG tablet,chewable 81 mg PO DAILY@0800 RF: 0 Primary Care Provider: Saul Rubio Referrals: Saul Rubio [Primary Care Provider] - (Or may return to the ER if feeling worse) Disposition Disposition: Home, Self Care
[2021-12-19 04:25] VITALS: BP 124/72; PULSE 64; RESP 15; O2SAT 91
[2021-12-19 05:10] VITALS: BP 124/72; PULSE 64; RESP 15; O2SAT 91
== END 2021-12-19 05:30 | disposition home or self-care (01) ==
PROVIDERS: Emergency Provider Emergency Medicine; Visit Provider Emergency Medicine
DX: K59.00 Constipation, unspecified (principal); R11.10 Vomiting, unspecified; R10.9 Unspecified abdominal pain; I25.10 Atherosclerotic heart disease of native coronary artery without angina pectoris; I25.2 Old myocardial infarction
CPT/HCPCS: 99284; A4216

== ENCOUNTER 2022-01-17 06:38 | Outpatient (CLI) | payer MEDICARE, OTHER, SELFPAY ==
--- NOTE | 2022-01-17 17:07 | STRESSREP ---
Stress Test Report Pharmacologic myocardial perfusion stress test. 71-year-old man needs a high on [employer] physical. Stress protocol: Resting EKG demonstrates sinus bradycardia with a rate of 51 bpm normal intervals are noted. 0.4 mg of regadenoson was infused per usual protocol followed by rapid intravenous saline flush injection continuous EKG monitoring was performed. The maximum heart rate attained was 84 bpm which was 55% of max impact at heart rate the maximum workload was 1 metabolic equivalent. At rest were no ST or T wave changes noted to suggest abnormal flow reserve and at peak infusion nonspecific ST changes were noted with did not meet the criteria for ischemia. No clinical angina was noted. Myocardial perfusion protocol. 14.8 mCi of technetium 99m sestamibi was injected at rest. 0.4 mg of regadenoson was infused per usual protocol. At peak infusion 45.0 mCi of technetium 99m sestamibi was injected stress images were obtained stress and rest images were reconstructed and compared in the short axis vertical long and horizontal long axis. Gated images were also obtained per Perfusion SPECT analysis: Review of the stress images demonstrate mildly reduced perfusion noted in the mid anterior wall. The resting images demonstrate a similar perfusion pattern not suggesting ischemia. No obvious areas of reversibility are noted suggest ischemia no previous infarct is noted. Gated SPECT analysis: The gated ejection fraction is 63%. Conclusion: Pharmacologic myocardial perfusion stress test with no obvious ischemia noted. Likely anterior breast wall attenuation noted. Preserved ejection fraction
== END 2022-01-17 23:59 | disposition home or self-care (01) ==
LOC: CVS 06:38
PROVIDERS: Visit Provider Nurse Practitioner Family
DX: I25.2 Old myocardial infarction (principal); I25.10 Atherosclerotic heart disease of native coronary artery without angina pectoris; Z95.5 Presence of coronary angioplasty implant and graft
CPT/HCPCS: 78452; 93017; A9500; A4216; J2785

== ENCOUNTER → 2022-04-04 | Outpatient (CLI) | payer MEDICARE, OTHER, SELFPAY ==
[2022-04-04 17:14] LABS: CRP < 2.90 mg/L (0.0-3.0)
[2022-04-06 19:07] LABS: Endomysial Antibody IgA Negative (Negative)
[2022-04-07 13:38] LABS: Immunoglobulin A 182 mg/dL (61-437); t-Transglutaminase IgA <2 U/mL (0-3)
== END | disposition home or self-care (01) ==
LOC: MTLAB 14:18
PROVIDERS: Referring Provider Internal Medicine Gastroenterology; Visit Provider Internal Medicine Gastroenterology
DX: R19.7 Diarrhea, unspecified (principal)
CPT/HCPCS: 36415; 82784; 83516; 86140; 86255

== ENCOUNTER → 2022-05-09 | Outpatient (CLI) | payer MEDICARE, OTHER, SELFPAY | END | disposition home or self-care (01) | LOC: PSN 08:15 | PROVIDERS: Referring Provider Nurse Practitioner Family; Visit Provider Nurse Practitioner Family | DX: R06.02 Shortness of breath (principal); R55 Syncope and collapse; I25.10 Atherosclerotic heart disease of native coronary artery without angina pectoris; I25.2 Old myocardial infarction; Z95.5 Presence of coronary angioplasty implant and graft | CPT/HCPCS: 93225; 93226 ==

== ENCOUNTER → 2022-05-30 | Outpatient (CLI) | payer MEDICARE, OTHER, SELFPAY ==
--- NOTE | 2022-05-30 09:32 | ECHOD_ITS ---
Version 2 Reason For Study: Dyspnea/SOB Procedure This was a 2D Doppler, Color Flow transthoracic echocardiogram. Exam performed in department. Left Ventricle Normal LV size. Left ventricular systolic function is normal. The estimated ejection fraction is 55 %. Stage 2 diastolic dysfunction. No regional wall motion abnormalities noted. Right Ventricle Normal RV size. Normal systolic function. Atria Normal left atrium. Normal right atrium. Mitral Valve Bileaflet diffuse mitral valve thickening. Mild focal mitral valve calcification of the anterior leaflet. Mild (1+) eccentric mitral valve insufficiency. Tricuspid Valve Normal tricuspid valve. Mild tricuspid valve insufficiency. Pulmonary artery systolic pressure is 20 mmHg. Aortic Valve Trisinus/trileaflet aortic valve. Pulmonic Valve Normal pulmonic valve. Great Vessels Normal aortic root. The pulmonary artery is normal size. Normal inferior vena cava. Pericardium/Pleural No pericardial effusion. MMode/2D Measurements & Calculations LVIDd: 5.2 cm IVSd: 0.80 cm Ao root diam: 3.9 cm LVIDs: 3.2 cm LVPWd: 1.0 cm LA dimension: 3.7 cm RVDd: 3.9 cm FS: 37.5 % LAV(MOD-bp): 39.7 ml LA A4 area: 15.3 cm2 RA A4 area: 15.1 cm2 LAV(MOD-bp) Indexed: 18.0 ml/m2 LAV(MOD-sp2): 40.5 ml LAV(MOD-sp4): 38.2 ml Time Measurements MV dec time: 0.29 sec Doppler Measurements & Calculations MV E max abelardo: 61.4 cm/sec MV V2 max: 77.2 cm/sec MV P1/2t max abelardo: 63.8 cm/sec MV A max abelardo: 58.1 cm/sec MV max P.4 mmHg MV P1/2t: 95.3 msec MV E/A: 1.1 MV V2 mean: 38.0 cm/sec MV dec slope: 196.2 cm/sec2 MV mean P.68 mmHg MVA(P1/2t): 2.3 cm2 MV V2 VTI: 26.0 cm Ao V2 max: 129.0 cm/sec LV V1 max: 71.9 cm/sec PA V2 max: 89.2 cm/sec Ao max P.7 mmHg LV V1 max P.1 mmHg TR max abelardo: 200.6 cm/sec PI dec slope: 112.5 cm/sec2 TR max P.2 mmHg ECHO/Echo Complete Interpretation Summary Normal LV size. Left ventricular systolic function is normal. The estimated ejection fraction is 55 %. Stage 2 diastolic dysfunction. Mild (1+) eccentric mitral valve insufficiency. Ordering Physician: Baldev Freed Referring Physician: Saul Rubio Performed By: Jayson Brown RCS
== END | disposition home or self-care (01) ==
LOC: CVS 09:32
PROVIDERS: Referring Provider Internal Medicine Cardiovascular Disease; Visit Provider Internal Medicine Cardiovascular Disease
DX: R06.02 Shortness of breath (principal); I25.10 Atherosclerotic heart disease of native coronary artery without angina pectoris
CPT/HCPCS: 93306

== ENCOUNTER 2022-06-21 12:36 | Emergency (ER) | payer MEDICARE, OTHER, SELFPAY ==
[2022-06-21 12:37] VITALS: BP 126/58; PULSE 83; RESP 16; TEMP 37.3; O2SAT 98; BMI 32.1
--- NOTE | 2022-06-21 13:11 | EX.ED.DYSGE1 ---
HPI History of Present Illness Chief Complaint: Lower Extremity Injury Detail of Chief Complaint: Back pain status post fusion and obstipation Informant: patient and spouse/S.O. Onset/Context/Timing Onset: Days Context: Sudden Onset Timing: Continuous and Waxes and wanes Quality: Back pain Location: Incision site Current Severity: 4/10 Maximum Severity: 10/10 Worsened by: Upright position and movement Relieved by: Remaining still diminishes the discomfort Associated Symptoms Associated Symptoms: Obstipation Narrative Narrative: Patient is a 71-year-old male who had surgery by Dr. Mensah at the [facility] last . Has not had a bowel movement since Monday. contacted Dr. Mensah's office because of increased waxing and waning pain. He took 2 Percocet tablets last evening. He does report nausea. He denies diarrhea. He denies vomiting. He denies fever, chills night sweats. thinks states that she changed the dressing and has not noted any drainage or blood. He denies bowel or bladder dysfunction. He denies radicular pain. He denies weakness in his legs. He denies saddle paresthesia or anesthesia. He denies shortness of breath or difficulty breathing. Prior similar symptoms: No Recent Illness/Hospitalization: Yes [facility] Medical History (Updated 06/21/22 @ 13:[address] Cruz Biswas MD) Atherosclerotic heart disease of [place] coronary artery without angina pectoris Essential (primary) hypertension Hernia History of non-ST elevation myocardial infarction (NSTEMI) (09/09/06) Hyperlipidemia Near syncope Obesity Urinary tract infection Home Medications atorvastatin 80 mg tablet (Lipitor) 80 mg PO QHS CHOLESTEROL 11/21/17 [History Last Taken Unknown] clopidogrel 75 mg tablet (Plavix) 75 mg PO QHS BLOOD THINNER 11/21/17 [History Last Taken 02/25/18] metoprolol succinate 25 mg tablet,extended release 24 hr 25 mg PO QDAY HEART/BP 11/21/17 [History Last Taken 03/05/18 06:00] nitroglycerin 0.4 mg sublingual tablet 0.4 mg sublingual Q5-15M PRN Cardiac/Chest Pain 11/21/17 [History Last Taken Unknown] omeprazole 40 mg capsule,delayed release 40 mg PO QHS GERD 11/21/17 [History Last Taken Unknown] aspirin 81 mg chewable tablet 81 mg PO DAILY@0800 03/07/18 [Rx Last Taken Unknown] escitalopram oxalate 20 mg tablet 20 mg PO DAILY 08/29/19 [History Last Taken Unknown] tamsulosin 0.4 mg capsule 0.4 mg PO DAILY 10/22/20 [History Last Taken Unknown] acetaminophen 650 mg tablet,extended release 1,950 mg PO Q12H 10/25/21 [History Last Taken Unknown] sour coelho extract 1,000 mg capsule (Tart Coelho Extract) mg PO BID 10/25/21 [History Last Taken Unknown] losartan 50 mg tablet 50 mg PO DAILY #90 tabs 05/12/22 [Rx Last Taken Unknown] Allergy/AdvReac Type Severity Reaction Status Date / Time No Known Allergies Allergy Verified 06/21/22 12:41 Family History Father Myocardial infarction CAD (coronary artery disease) Mother Hx of CABG CAD (coronary artery disease) Brother Hypertension Brother Hypertension Surgical History (Updated 06/21/22 @ 13:14 by Jack Hoyos RN) H/O knee surgery History of back surgery History of coronary artery stent placement (09/09/06) History of herniorrhaphy History of knee replacement (2017) History of left heart catheterization (11/27/17) Social History (Updated 06/21/22 @ 13:[address] Cruz Biswas MD) household members: spouse Smoking Status: Never smoker alcohol intake: never substance use type: does not use caffeine: Yes Type: coffee Number of servings: 3 what type of physical activity do you participate in: none seatbelt use: always do you feel safe at home: Yes ROS ROS ED Constitutional Constitutional ED: Reports chills; Denies fever(s), subjective, sweats or weight loss Eyes Eyes: Denies blurry vision, change in vision or diplopia Cardiovascular Cardiovascular: Denies chest pain, orthopnea, palpitations or paroxysmal nocturnal dyspnea Respiratory/Chest Respiratory/Chest: Denies cough, dyspnea, dyspnea on exertion, orthopnea or paroxysmal nocturnal dyspnea Gastrointestinal Gastrointestinal: Reports abdominal pain, constipation and nausea; Denies vomiting Genitourinary Genitourinary ED: Denies dysuria, hematuria or urinary frequency Musculoskeletal Musculoskeletal: Reports back pain; Denies arthralgias, myalgias or neck pain Integumentary Denies Abrasions or rash Neurologic Neurologic: Denies paresthesias or weakness Hematologic/Lymphatic Hematologic/Lymphatic: Denies easy bleeding, easy bruising or lymphadenopathy EXAM Physical Exam Const Vital Signs: 06/21/22 12:37 Temperature 99.1 F Temperature Source Temporal Pulse Rate 83 Respiratory Rate 16 Blood Pressure 126/58 H Blood Pressure Mean 80 Pulse Ox 98 Oxygen Delivery Method Room Air Positive well nourished, well developed and obese General Appearance ED: well developed and NAD; Negative for cyanotic, diaphoretic or pallor Nutritional Appearance: obese HEENT Reports moist mucous membranes HEENT Narrative: Atraumatic normocephalic. Ears normal. Nares patent. Eyes PERRL and EOMs intact bilaterally General Eye ED: Negative for pale conjunctiva or scleral icterus Neck supple and no JVD Chest Wall inspection of chest normal and palpation of chest normal Resp normal respiratory effort and clear to auscultation bilaterally Cardio regular rate, regular rhythm, S1 normal heart sound, S2 normal heart sound and no murmurs GI non-tender; Negative for non-distended or hepatosplenomegaly Inspection: abdominal distention Auscultation: hypoactive bowel sounds Palpation: soft; Negative for guarding or splenomegaly Back/Spine no CVA tenderness Back/Spine Narrative: Incision healing without evidence infection. [place] in place. There is no erythema, warmth, fluctuance. Cervical Spine: Negative for cervical spine tenderness Thoracic Spine / Upper Back: Negative for thoracic spinal tenderness Lumbar Spine / Lower Back: lumbar spinal tenderness Extremity normal to inspection General Extremety ED: Negative for edema or tenderness General Extremity: Negative for edema Neuro oriented x3, CN's II-XII intact bilaterally and no sensory deficits noted Sensorium / Orientation: alert Psych mental status grossly normal Skin no rashes or lesions noted and skin turgor normal General Skin Exam: Negative for jaundice or pallor MDM MDM MDM Narrative Medical decision making narrative: Patient with pain due to recent surgery. Patient obstipated due to opiate analgesia. Discussed options for treatment of obstipation. Patient had a fentanyl patch placed. Plan is to discharge to home. Discharge Plan Triage Chief Complaint: Lower Extremity Injury ED Provider: Cruz Biswas Dx/Rx/DC Orders Clinical Impression: Postoperative back pain, Obstipation Instructions: ED Constipation (Adult), ED Post Op Wound Check, Pain Prescriptions: No Action atorvastatin [Lipitor] 80 mg tablet 80 mg PO QHS metoprolol succinate 25 mg tablet extended release 24 hr 25 mg PO QDAY nitroglycerin 0.4 mg tablet, sublingual 0.4 mg SUBLINGUAL Q5-15M PRN (Reason: Cardiac/Chest Pain) clopidogrel [Plavix] 75 mg tablet 75 mg PO QHS Label Comments: WAS TOLD TO STOP FOR SURGERY omeprazole 40 mg capsule,delayed release(DR/EC) 40 mg PO QHS escitalopram oxalate 20 mg tablet 20 mg PO DAILY tamsulosin 0.4 mg capsule 0.4 mg PO DAILY Tart Coelho Extract 1,000 mg capsule PO BID acetaminophen 650 mg tablet extended release 1,950 mg PO Q12H losartan 50 mg tablet 50 mg PO DAILY Qty: 90 3RF aspirin 81 MG tablet,chewable 81 mg PO DAILY@0800 0RF Primary Care Provider: Saul Rubio Referrals: Amol Velásquez MD [Non-Staff] - Keep Bo appointment Saul Rubio [Primary Care Provider] - As Needed Activity Restrictions/Additional Instructions: Recommend drinking 1 glass of MiraLAX every 1-2 hours until you have results. The following day recommend MiraLAX 3 times a day as long as you are on the pain medicine. Disposition Disposition: Home, Self Care
[2022-06-21 13:13] VITALS: BP 126/58; PULSE 83; RESP 16; TEMP 37.3; O2SAT 98
[2022-06-21] MEDS: fentaNYL 25 MCG Patch TD (13:55)
[2022-06-21 14:12] VITALS: BP 130/60; PULSE 75; RESP 18; O2SAT 97
== END 2022-06-21 14:13 | disposition home or self-care (01) ==
LOC: ED 13:29
PROVIDERS: Emergency Provider Emergency Medicine; Visit Provider Emergency Medicine
DX: M54.9 Dorsalgia, unspecified (principal); E78.5 Hyperlipidemia, unspecified; I25.10 Atherosclerotic heart disease of native coronary artery without angina pectoris; E66.9 Obesity, unspecified; I10 Essential (primary) hypertension; K59.00 Constipation, unspecified; Z79.82 Long term (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 of aspirin; Z79.899 Other long term (current) drug therapy; Z98.890 Other specified postprocedural states
CPT/HCPCS: 99284

== ENCOUNTER 2023-10-20 12:11 | Emergency (ER) | payer MEDICARE, OTHER, SELFPAY ==
[2023-10-20 12:12] VITALS: BP 165/89; PULSE 103; RESP 16; TEMP 37.7; O2SAT 100; BMI 34.1
--- NOTE | 2023-10-20 12:59 | EDS_ITS ---
HPI History of Present Illness Chief Complaint: Cough Informant: patient Onset/Context/Timing Onset: Days (7 days) Context: Gradual Onset Timing: Waxes and wanes Narrative Narrative: Patient present secondary to cough and congestion. states he is bringing up copious amounts of white sputum with the cough. He has been taking Benadryl, Mucinex, and Tessalon Perles without improvement. He is not sure that he has had a fever. Apparently he had a home COVID test last Monday that was positive, but when he went to urgent care earlier this week it was negative. [facility] Medical History Atherosclerotic heart disease of [place] coronary artery without angina pectoris Essential (primary) hypertension Gout Hernia History of non-ST elevation myocardial infarction (NSTEMI) (09/09/06) Hyperlipidemia Near syncope Obesity Urinary tract infection Home Medications aspirin 81 mg chewable tablet 81 mg PO DAILY@0800 03/07/18 [Rx Last Taken Unknown] acetaminophen 650 mg tablet,extended release 1,950 mg PO Q12H 10/25/21 [History Last Taken Unknown] sour coelho extract 1,000 mg capsule (Tart Coelho Extract) mg PO BID 10/25/21 [History Last Taken Unknown] blood sugar diagnostic (Blood Glucose Test strips) #50 ea 11/10/22 [Rx Last Taken Unknown] blood-glucose meter #1 ea 11/10/22 [Rx Last Taken Unknown] lancets 31 gauge #100 ea 11/10/22 [Rx Last Taken Unknown] metoprolol succinate 25 mg tablet,extended release 24 hr 25 mg PO QDAY HEART/BP #90 tabs 07/28/23 [Rx Last Taken Unknown] atorvastatin 80 mg tablet (Lipitor) 80 mg PO QHS CHOLESTEROL #90 tabs 08/02/23 [Rx Last Taken Unknown] escitalopram oxalate 20 mg tablet 20 mg PO DAILY #90 tabs 08/02/23 [Rx Last Taken Unknown] losartan 50 mg tablet 50 mg PO DAILY #90 tabs 08/02/23 [Rx Last Taken Unknown] nitroglycerin 0.4 mg sublingual tablet 0.4 mg sublingual Q5-15M PRN Cardiac/Chest Pain #30 tabs 08/02/23 [Rx Last Taken Unknown] omeprazole 40 mg capsule,delayed release 40 mg PO QHS GERD #90 caps 08/02/23 [Rx Last Taken Unknown] tamsulosin 0.4 mg capsule 0.4 mg PO DAILY #90 caps 08/02/23 [Rx Last Taken Unknown] azithromycin 250 mg tablet (Zithromax Z-Brooks) 250 mg PO DAILY 4 days #4 tabs 10/20/23 [Rx Last Taken Unknown] Allergy/AdvReac Type Severity Reaction Status Date / Time No Known Allergies Allergy Verified 10/20/23 12:11 Family History Father Myocardial infarction CAD (coronary artery disease) Mother Hx of CABG CAD (coronary artery disease) Brother Hypertension Brother Hypertension Surgical History H/O knee surgery H/O wrist surgery History of back surgery History of coronary artery stent placement (09/09/06) History of herniorrhaphy History of knee replacement (2017) History of left heart catheterization (11/27/17) Social History household members: spouse current occupational status: employed 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 [employer] Smoking Status: Never smoker Electronic Cigarette Use: not used alcohol intake: never substance use type: does not use caffeine: Yes Type: coffee Number of servings: 3 what type of physical activity do you participate in: none seatbelt use: always do you feel safe at home: Yes ROS ROS ED Constitutional Constitutional ED: Denies chills or fever(s) Eyes Eyes: Denies change in vision or discharge from eye(s) ENT ENT ED: Reports other Details: Congestion ; Denies discharge from eye(s), rhinorrhea or sore throat Cardiovascular Cardiovascular: Denies chest pain or palpitations Respiratory/Chest Respiratory/Chest: Reports cough and dyspnea Gastrointestinal Gastrointestinal: Denies abdominal pain, nausea or vomiting Genitourinary Genitourinary ED: Denies dysuria Musculoskeletal Musculoskeletal: Denies back pain or extremity pain Integumentary Denies Abrasions or rash Neurologic Neurologic: Denies headache(s) or weakness Psychiatric Psychiatric: Denies anxiety or depression Allergic/Immunologic Allergic/Immunologic ED: Denies lip swelling or urticaria EXAM Physical Exam Const Vital Signs: 10/20/23 12:12 10/20/23 12:11 10/20/23 13:15 Temperature 99.8 F H Temperature Source Temporal Pulse Rate 103 H 92 Respiratory Rate 16 18 Respiratory Effort Normal Non-Labored Respiratory Depth Normal Respiratory Pattern Normal Normal Blood Pressure 165/89 H Blood Pressure Mean 114 Pulse Ox 100 Oxygen Delivery Method Room Air Room Air Positive well nourished and well developed General Appearance ED: well developed HEENT Reports moist mucous membranes Eyes EOMs intact bilaterally Chest Wall inspection of chest normal and palpation of chest normal Resp normal respiratory effort and clear to auscultation bilaterally Cardio regular rate and regular rhythm GI non-tender Palpation: soft Extremity normal to inspection Neuro oriented x3 and no sensory deficits noted Sensorium / Orientation: alert Motor Exam: strength 5/5 throughout Psych mental status grossly normal Skin no rashes or lesions noted MDM MDM MDM Narrative Medical decision making narrative: IV line established. Labwork obtained to evaluate for leukocytosis, anemia, and electrolyte derangement. Chest x-ray obtained to evaluate for acute lung pathology, cardiac size, or mediastinal abnormality. EKG obtained to evaluate for cardiac arrhythmia/ischemia. DuoNeb treatment given to try to open lungs and mobilize sputum. History & Record Review Discussion w/independent historian: Patient and Significant other Lab Data Attestation: I reviewed the patient's lab results. Labs: Laboratory Results - last 24 hr 10/20/23 13:03 WBC 8.3 RBC 4.64 Hgb 13.7 Hct 42.2 MCV 90.9 MCH 29.5 MCHC 32.5 RDW Std Deviation 42.6 RDW Coeff of Kristen 13.0 Plt Count 272 MPV 10.0 Immature Gran % (Auto) 0.200 Neut % (Auto) 74.4 H Lymph % (Auto) 14.0 L [place] % (Auto) 9.3 Eos % (Auto) 1.5 Baso % (Auto) 0.6 Absolute Neuts (auto) 6.1 Absolute Lymphs (auto) 1.16 Nucleated RBC % 0 Sodium 139 Potassium 4.0 Chloride 108 H Carbon Dioxide 25.0 Anion Gap 6 BUN 16 Creatinine 1.19 Estim Creat Clear Calc 61.52 Est GFR (MDRD) Af Amer 78 Est GFR (MDRD) Non-Af 64 BUN/Creatinine Ratio 13.4 Glucose 164 H Calcium 9.0 Radiography Chest X-Ray - ED: 1 View, Read by ED Physician, Normal, Heart, Lungs and Mediastinum Diagnostic Testing: Clinical Impression(s) from Imaging Studies Chest X-Ray 10/20/23 13:48 IMPRESSION: No acute pulmonary process Electronically Signed: Leonel Gil MD at 14:01 EST , EKG Initial EKG: Attestation: I personally reviewed and interpreted this EKG as follows: Interpretation: Sinus Rhythm (Sinus at 99 with PVCs. No acute ischemia.) Treatment and Re-Evaluation :: CBC was normal white count 8.3 with a hemoglobin of 13.7. Slight left shift with 74% neutrophils noted. Chemistry studies unremarkable. Glucose is elevated at 164. Portable chest x-ray per my interpretation reveals no focal infiltrate. Radiology interpretation reviewed and agrees. EKG is sinus rhythm with PVCs. Swab for COVID, influenza, and RSV obtained. The patient had 7 days of symptoms I will cover her with an antibiotic for bronchitis. I did advise him that I am still suspicious this is all viral and he will improve in the next 5 to 6 days regardless of whether he is on an antibiotic or not. Prescription will be sent to the pharmacy for him. Discharge Plan Triage Chief Complaint: Cough ED Provider: Jeaneth Guillaume Dx/Rx/DC Orders Clinical Impression: Bronchitis Instructions: ED Upper Resp Infec Abx Tx Prescriptions: New azithromycin [Zithromax Z-Brooks] 250 mg tablet 250 mg PO DAILY 4 Days Qty: 4 0RF Rx Instructions: start on day 2 of therapy No Action Tart Coelho Extract 1,000 mg capsule PO BID acetaminophen 650 mg tablet extended release 1,950 mg PO Q12H aspirin 81 MG tablet,chewable 81 mg PO DAILY@0800 0RF (DME) Blood Glucose Test Strip See Rx Instructions .Route Qty: 50 3RF Rx Instructions: use daily to monitor blood glucose (DME) blood-glucose meter Misc See Rx Instructions .Route Qty: 1 0RF Rx Instructions: use daily to monitor blood glucose (DME) lancets 31 gauge misc See Rx Instructions .Route Qty: 100 0RF Rx Instructions: use daily to check blood glucose metoprolol succinate 25 mg tablet extended release 24 hr 25 mg PO QDAY Qty: 90 0RF atorvastatin [Lipitor] 80 mg tablet 80 mg PO QHS Qty: 90 0RF escitalopram oxalate 20 mg tablet 20 mg PO DAILY Qty: 90 0RF losartan 50 mg tablet 50 mg PO DAILY Qty: 90 0RF nitroglycerin 0.4 mg tablet, sublingual 0.4 mg SUBLINGUAL Q5-15M PRN (Reason: Cardiac/Chest Pain) Qty: 30 0RF omeprazole 40 mg capsule,delayed release(DR/EC) 40 mg PO QHS Qty: 90 0RF tamsulosin 0.4 mg capsule 0.4 mg PO DAILY Qty: 90 0RF Primary Care Provider: Marian Davila Referrals: Marian Davila MD [Primary Care Provider] - 1-2 Weeks Disposition Disposition: Home, Self Care
[2023-10-20] MEDS: Ipratropium/Albuterol Sulfate 3 ML AMPUL.NEB INHALATION (13:12)
[2023-10-20 13:15] VITALS: PULSE 92; RESP 18
[2023-10-20 13:22] LABS: Absolute Lymphocyte Count 1.16 X10^3/uL (0.83-4.51); Absolute Neutrophil Count 6.1 X10^3/uL (2.0-7.7); Basophil# 0.05 X10^3/uL; Basophil% 0.6 % (0-1); Eosinophil# 0.12 X10^3/uL; Eosinophils% 1.5 % (0-5); Hematocrit 42.2 % (40-54); Hemoglobin 13.7 g/dL (13.0-16.5); Lymphocyte # 1.16 X10^3/ul (0.83-4.51); Mean Corp Hgb Conc 32.5 g/dL (32-36); Mean Corpuscular Hgb 29.5 pg (27.0-32.0); Mean Corpuscular Volume 90.9 fL (80-94); Monocyte# 0.77 X10^3/uL; Monocyte% 9.3 % (0-10); NRBC Flagged by Analyzer 0 % (0-5); Neutrophil # 6.14 X10^3/uL (2.7-7.7); Neutrophil % 74.4 % (47-70); Platelet Count 272 K/mm3 (150-450); RBC Distribution Width SD 42.6 fl (35.1-43.9); Red Blood Count 4.64 M/mm3 (4.6-6.2); White Blood Count 8.3 K/mm3 (4.4-11.0)
[2023-10-20 13:29] LABS: Anion Gap 6 (5-15); BUN 16 mg/dL (7-18); BUN/Creat Ratio 13.4 RATIO (10-20); Chloride 108 mmol/L (98-107); Creatinine, Serum 1.19 mg/dL (0.70-1.30); EST Glomerular Filtration Rate 64 mL/min (>60); Est Glom Filt Rate - Afr Amer 78 mL/min (>60); Estimated Creatinine Clearance 61.52 ml/min; Glucose 164 mg/dL (74-106); Sodium Level 139 mmol/L (136-145)
--- NOTE | 2023-10-20 13:48 | RAD_ITS ---
STUDY: X-RAY CHEST REASON FOR EXAM: Male, 72 years old. cough TECHNIQUE: Single AP portable view of the chest. COMPARISON: None. FINDINGS: EKG leads overlie the chest The lungs are clear and expanded. There is no demonstrated pleural abnormality. Normal size heart. Normal mediastinum and sury. Normal visualized pulmonary arteries. Normal visualized aortic arch and descending thoracic aorta. There are diffuse degenerative changes of the visualized thoracic spine. Normal visualized ribs, clavicles, and shoulders. There is no demonstrated abnormality of the visualized soft tissue structures of the upper abdomen. RAD/Chest 1 View (Portable) IMPRESSION: No acute pulmonary process Electronically Signed: Leonel Gil MD at 14:01 EST ,
[2023-10-20 14:11] VITALS: BP 125/69
[2023-10-20] MEDS: Azithromycin 250 MG Tablet 500 MG PO (14:29)
== END 2023-10-20 14:32 | disposition home or self-care (01) ==
PROVIDERS: Emergency Provider Emergency Medicine; PCP Internal Medicine; Visit Provider Emergency Medicine
DX: J40 Bronchitis, not specified as acute or chronic (principal); I25.10 Atherosclerotic heart disease of native coronary artery without angina pectoris; E78.5 Hyperlipidemia, unspecified; I10 Essential (primary) hypertension; Z79.899 Other long term (current) drug therapy
CPT/HCPCS: 71045; 80048; 85025; 87631; 93005; 94640; 99284; A4216

== ENCOUNTER → 2024-03-21 | Outpatient (CLI) | payer MEDICARE, OTHER, SELFPAY | END | disposition home or self-care (01) | LOC: LAB 15:00 | PROVIDERS: PCP Internal Medicine; Referring Provider Urology; Visit Provider Urology | DX: Z12.5 Encounter for screening for malignant neoplasm of prostate (principal) | CPT/HCPCS: 36415; 84153; G0103 ==

== ENCOUNTER 2025-05-19 08:54 | Emergency (ER) | payer MEDICARE, OTHER, SELFPAY ==
[2025-05-19 08:55] VITALS: BP 134/83; PULSE 58; RESP 14; TEMP 36.2; O2SAT 97; BMI 75.6
--- NOTE | 2025-05-19 09:11 | EKG12_ITS ---
Test Reason : SOB Blood Pressure : */* mmHG Vent. Rate : 57 BPM Atrial Rate : 57 BPM P-R Int : 208 ms QRS Dur : 86 ms QT Int : 406 ms P-R-T Axes : 56 30 48 degrees QTcB Int : 395 ms Sinus bradycardia Otherwise normal ECG Confirmed by IAM DIAZ, GRETEL ([id number]), multimedia editor ADAMARIS DEL RIO ([id number]) on 05/21/2025 6:51:00 AM Referred By: KAVITA Confirmed By: GRETEL VITALE MD
--- NOTE | 2025-05-19 09:20 | ED.VIS.DYS ---
HPI History of Present Illness Chief Complaint: Shortness of Breath Narrative Narrative: Chief complaint and HPI: 74-year-old male with past medical history of CAD status post bare-metal stenting to the proximal LAD in 2005, HTN, HLD presents for evaluation of exertional shortness of breath. Patient states for the past several months he has been having exertional dyspnea with walking up inclines. He saw his truck driving in April but did not inform him of this information. Patient states yesterday he walked up the incline in which he got short of breath. States he sat down. Developed a episode of involuntary muscle sheron/shaking. Was not a seizure as he states he was awake and aware. States it lasted several seconds and then resolved. States shortly after he felt mildly lightheaded but this quickly resolved. Triage note states weakness however he denies this to me. Currently asymptomatic. He denies any fever, chills, chest pain, shortness of breath at rest, bilateral lower extremity swelling, abdominal pain, nausea, vomiting, dysuria, recent travel or surgery. Review of systems: See HPI Medications: As listed on the chart Allergies: As listed on the chart PFSH: Per chart Vital signs: As listed on the chart. Reviewed. Physical exam: Gen: A&O x3, NAD Head: Normocephalic, atraumatic Eyes: No sclera icterus, conjunctiva clear ENT: Moist mucous membranes Neck: Trachea midline, No JVD CV: RRR, no murmurs, no peripheral edema Resp: Lungs CTA BL, no w/r/c GI: Abd soft, non-distended, non-tender, no r/r/g Musc: Full ROM, no deformity, strength +5/5 in all extremities Skin: Warm, dry Neuro: Alert, oriented, grossly intact, sensation intact Psych: Cooperative, appropriate mood and affect [facility] Medical History Gout Near syncope Urinary tract infection Obesity History of non-ST elevation myocardial infarction (NSTEMI) (09/09/06) Essential (primary) hypertension Hernia Hyperlipidemia Atherosclerotic heart disease of [place] coronary artery without angina pectoris Home Medications ?Medication ?Instructions ?Recorded ?Last Taken ?Type aspirin 81 mg chewable tablet 81 mg PO DAILY@0800 03/07/18 Unknown Rx blood-glucose meter #1 ea 11/10/22 Unknown Rx blood sugar diagnostic (Blood #50 ea 12/12/23 Unknown Rx Glucose Test strips) lancets 31 gauge #100 ea 12/12/23 Unknown Rx nitroglycerin 0.4 mg sublingual 0.4 mg sublingual Q5-15M PRN 12/12/23 Unknown Rx tablet Cardiac/Chest Pain #30 tabs lancets 28 gauge (Comfort EZ #100 ea 06/03/24 Unknown Rx Lancets) atorvastatin 80 mg tablet (Lipitor) 80 mg PO QHS CHOLESTEROL #90 tabs 11/25/24 Unknown Rx escitalopram oxalate 20 mg tablet 20 mg PO DAILY #90 tabs 11/25/24 Unknown Rx finasteride 5 mg tablet (Proscar) 5 mg PO DAILY #90 tabs 11/25/24 Unknown Rx losartan 50 mg tablet 50 mg PO DAILY #90 tabs 11/25/24 Unknown Rx tamsulosin 0.4 mg capsule 0.4 mg PO DAILY #90 caps 11/25/24 Unknown Rx metoprolol succinate 25 mg 25 mg PO QDAY HEART/BP #90 tabs 02/21/25 Unknown Rx tablet,extended release 24 hr omeprazole 40 mg capsule,delayed 40 mg PO QHS GERD #90 caps 03/11/25 Unknown Rx release biotin 5 mg capsule 5 mg PO QDAY 05/12/25 Unknown History calcium 333 mg-vit D3 200 1 tab PO QDAY 05/12/25 Unknown History unit-magnesium 133 mg-zinc 5 mg tablet lactobacillus combination no.9 4 4,000 mmu cells PO QDAY 05/12/25 Unknown History billion cell capsule (Adult 50 Plus Probiotic) prevagen 1 cap PO QDAY 05/12/25 Unknown History total beets 3 tab PO QDAY 05/12/25 Unknown History Allergy/AdvReac Type Severity Reaction Status Date / Time No Known Allergies Allergy Verified 05/12/25 15:05 Family History Father Myocardial infarction CAD (coronary artery disease) Mother Hx of CABG CAD (coronary artery disease) Brother Hypertension Brother Hypertension Surgical History Cataract extraction status H/O wrist surgery History of back surgery History of herniorrhaphy History of knee replacement (2018) History of left heart catheterization (11/27/17) H/O knee surgery History of coronary artery stent placement (09/09/06) Social History household members: spouse current occupational status: employed 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 Smoking Status: Never smoker Electronic Cigarette Use: not used alcohol intake: never substance use type: does not use caffeine: Yes Type: coffee Number of servings: 3 what type of physical activity do you participate in: none seatbelt use: always do you feel safe at home: Yes EXAM Physical Exam Const Vital Signs: 05/19/25 08:55 05/19/25 11:11 Temperature 97.1 F L Temperature Source Temporal Pulse Rate 58 L 46 L Respiratory Rate 14 19 H Blood Pressure 134/83 H 144/81 H Blood Pressure Mean 100 102 Pulse Ox 97 97 Oxygen Delivery Method Room Air MDM MDM MDM Narrative Medical decision making narrative: 74-year-old male with past medical history of CAD status post bare-metal stenting to the proximal LAD in 2005, HTN, HLD presents for evaluation of chronic exertional shortness of breath. Patient states for the past several months he has been having exertional dyspnea with walking up inclines. He saw his truck driving in April but did not inform him of this information. Patient states yesterday he walked up the incline in which he got short of breath. States he sat down. Developed a episode of involuntary muscle sheron/shaking and lightheadedness that quickly resolved. Currently asymptomatic. Differential diagnosis includes but is not limited to CHF, electrolyte abnormality, dehydration, hyperventilation episode, low suspicion for ACS or PE, UTI. On chart review, patient was seen in the cardiology office on 05/12/2025. His last echocardiogram was from 2021 that showed left ventricular systolic function normal. EF 55%. Stage II diastolic dysfunction. He had a stress test in 2021 with no obvious ischemia. His last cardiac cath in 2017 showed mild CAD with no high-grade obstructive disease. Laboratory workup ordered including chest x-ray. CBC without leukocytosis or anemia. BMP shows mild renal insufficiency with a creatinine of 1.21. No significant electrolyte abnormality. BNP unremarkable. Troponin unremarkable. Patient not having chest pain. D-dimer negative for age. UA negative for UTI. At this point in time, no clear etiology to explain patient's chronic exertional shortness of breath as well as his episode yesterday. Recommend following up with cardiology and PCP. Him and his are updated on the results and confirmed understand the plan. Patient stable to discharge home. EKG: Interpreted by me/EM physician: Sinus bradycardia without any acute ischemic changes. Heart rate 76. Patient is on beta-malcolm. Diagnostic: Interpreted by me/EM physician: Chest x-ray without pneumonia, effusion, cardiomegaly, pneumothorax. Radiology in agreement. Impression: 1. Chronic exertional dyspnea 2. Episode of lightheadedness and muscle contraction, resolved 3. Mild renal insufficiency Lab Data Labs: Laboratory Results - last 24 hr 05/19/25 05/19/25 09:16 10:28 WBC 7.7 RBC 4.27 L Hgb 13.0 Hct 39.8 L MCV 93.2 MCH 30.4 MCHC 32.7 RDW Std Deviation 45.6 H RDW Coeff of Kristen 13.4 Plt Count 220 MPV 10.7 Immature Gran % (Auto) 0.100 Neut % (Auto) 66.4 Lymph % (Auto) 19.0 [place] % (Auto) 11.5 H Eos % (Auto) 2.5 Baso % (Auto) 0.5 Absolute Neuts (auto) 5.1 Absolute Lymphs (auto) 1.47 Nucleated RBC % 0 Platelet Estimate ADEQUATE D-Dimer Quant (PE/DVT) 0.68 H* Sodium 140 Potassium 4.1 Chloride 106 Carbon Dioxide 22.8 Anion Gap 12 BUN 19 Creatinine 1.21 H Estim Creat Clear Calc 108.84 Est GFR (MDRD) Non-Af 64 BUN/Creatinine Ratio 16.0 Glucose 125 H Calcium 8.8 Troponin T High Sens 20 NT pro BNP II 226 Urine Color Yellow Urine Clarity Clear Urine pH 6.0 Ur Specific [place] 1.020 Urine Protein 30 H Urine Glucose (UA) Normal Urine Ketones Negative Urine Occult Blood Negative Urine Nitrite Negative Urine Bilirubin Negative Urine Urobilinogen Normal Ur Leukocyte Esterase 25 H Urine RBC 0 SEEN Urine WBC 0-5 SEEN Ur Squamous Epith Cells 0-5 SEEN Urine Bacteria 0 SEEN Urine Mucus 0 SEEN Radiography Diagnostic Testing: Clinical Impression(s) from Imaging Studies Chest X-Ray 05/19/25 09:30 IMPRESSION: NO ACUTE FINDINGS. Reading Location: [id number] Discharge Plan Triage Chief Complaint: Shortness of Breath ED Provider: Jayson Ellison Dx/Rx/DC Orders Prescriptions: No Action (DME) lancets [Comfort EZ Lancets] 28 gauge misc See Rx Instructions .Route Qty: 100 0RF Rx Instructions: As directed atorvastatin [Lipitor] 80 mg tablet 80 mg PO QHS Qty: 90 1RF escitalopram oxalate 20 mg tablet 20 mg PO DAILY Qty: 90 1RF finasteride [Proscar] 5 mg tablet 5 mg PO DAILY Qty: 90 1RF losartan 50 mg tablet 50 mg PO DAILY Qty: 90 1RF tamsulosin 0.4 mg capsule 0.4 mg PO DAILY Qty: 90 1RF calcium carb-D3-mag [id number] 333 mg-200 unit -133 mg-5 mg tablet 1 tab PO QDAY Rx Instructions: administer with a meal total beets 3 tab PO QDAY prevagen 1 cap PO QDAY biotin 5 mg capsule 5 mg PO QDAY Adult 50 Plus Probiotic 4 billion cell capsule 4,000 mmu cells PO QDAY Rx Instructions: administer with a meal aspirin 81 MG tablet,chewable 81 mg PO DAILY@0800 0RF (DME) blood-glucose meter Misc See Rx Instructions .Route Qty: 1 0RF Rx Instructions: use daily to monitor blood glucose (DME) Blood Glucose Test Strip See Rx Instructions .Route Qty: 50 3RF Rx Instructions: use daily to monitor blood glucose (DME) lancets 31 gauge misc See Rx Instructions .Route Qty: 100 0RF Rx Instructions: use daily to check blood glucose nitroglycerin 0.4 mg tablet, sublingual 0.4 mg SUBLINGUAL Q5-15M PRN (Reason: Cardiac/Chest Pain) Qty: 30 0RF metoprolol succinate 25 mg tablet extended release 24 hr 25 mg PO QDAY Qty: 90 0RF omeprazole 40 mg capsule,delayed release(DR/EC) 40 mg PO QHS Qty: 90 0RF Primary Care Provider: Marian Davila Referrals: Marian Davila MD [Primary Care Provider] - Print Language: Canadian
--- NOTE | 2025-05-19 09:30 | RAD_ITS ---
PROCEDURE: CHEST PA AND LATERAL 05/19/2025 REASON FOR EXAM: EXERTIONAL DYSPNEA TECHNIQUE: CHEST PA AND LATERAL COMPARISON: Prior study dated October 20, 2023. FINDINGS: Hardware: EKG electrodes are seen. Heart: The heart is nonenlarged. Mediastinum: The mediastinal contour is unremarkable. Lungs: The lungs are clear. Bones: The bones are unremarkable. RAD/Chest PA and Lateral IMPRESSION: NO ACUTE FINDINGS. Reading Location: [facility]
[2025-05-19 09:38] LABS: Hematocrit 39.8 % (40-54); Hemoglobin 13.0 g/dL (13.0-16.5); Immature Granulocytes Count 0.010 X10^3/uL (0.0-0.0); Mean Corp Hgb Conc 32.7 g/dL (32-36); Mean Corpuscular Volume 93.2 fL (80-94); Mean Platelet Vol. 10.7 fl (6.2-12.0); NRBC Flagged by Analyzer 0 % (0-5); POSITIVE COUNT YES; Platelet Count 220 K/mm3 (150-450); RBC Distribution Width CV 13.4 % (11.6-14.6); RBC Distribution Width SD 45.6 fl (35.1-43.9); Red Blood Count 4.27 M/mm3 (4.6-6.2); White Blood Count 7.7 K/mm3 (4.4-11.0)
[2025-05-19 09:41] LABS: Differential Indicated SCAN CRITERIA MET
[2025-05-19 09:44] LABS: D-Dimer Quantitative (DVT/PE) 0.68 FEU/ug/m (0.27-0.49)
[2025-05-19 10:06] LABS: Troponin T High Sensitivity 20 ng/L (<=22)
[2025-05-19 10:11] LABS: Anion Gap 12 (5-15); BUN 19 mg/dL (4-19); BUN/Creat Ratio 16.0 RATIO (10-20); Calcium,Total 8.8 mg/dL (7.6-11.0); Carbon Dioxide 22.8 mmol/L (21.0-32.0); Chloride 106 mmol/L (98-108); Estimated Creatinine Clearance 108.84 ml/min (50-250); Glucose 125 mg/dL (70-99); Potassium 4.1 mmol/L (3.3-5.1); Pro- Brain NATRIURETIC PEPTIDE 226 pg/mL (<=900)
[2025-05-19 10:42] LABS: Mucous, Urine 0 SEEN /hpf (<or=2+); Red Blood Cells-Urine 0 SEEN /hpf (0-5)
[2025-05-19 10:53] LABS: Color, Urine Yellow (Yellow); Glucose, Dipstick Normal (Normal); Ketone-Dipstick Negative (Negative); Leukocyte Esterase-Dipstick 25 /ul (Negative); Nitrite-Dipstick Negative (Negative); Occult Blood-Urine Negative /ul (Negative); Protein-Dipstick 30 mg/dl (Negative); Specific Gravity, Urine 1.020 (1.002-1.030); Urine Bilirubin Dipstick Negative (Negative)
[2025-05-19 11:02] LABS: Squamous Epithelial Cells - UA 0-5 SEEN /hpf (0-5)
[2025-05-19 11:11] VITALS: BP 144/81; PULSE 46; RESP 19; O2SAT 97
[2025-05-19 12:01] VITALS: BP 176/79; PULSE 81; RESP 16; TEMP 36.7; O2SAT 100
--- OUTSIDE RECORDS SUMMARY | 2025-05-19 19:26 | XMS RPT_ITS | CCD ---
Author Organization [facility] Care Team Providers Care Ccnp Name Role Phone Suha DRAKE, Maricel Roblero Unavailable Unavailable Carrie Josue Y Unavailable Byron Josueia Y Unavailable Carrie Josue Y Unavailable Ulices Taveras Primary Care Provider Ulices Taveras Primary Care Provider UnavailUlices Wylie Referring Provider Unavailable Roof JACK SETTER, JACK SETTER-Shelby Tomlinson Attending Provider Roof JACK SETTER, JACK SETTER-Shelby Tomlinson Other Provider Dr. Baldev Freed Attending Provider Ulices Taveras MD Primary Care Provider Ulices Taveras Primary Care Provider UnavailUlices Wylie Primary Care Provider Ulices Taveras MD Primary Care Provider Ulices Taveras Primary Care Provider UnavailUlices Wylie Referring Provider Unavailable Dr. Baldev Freed Attending Provider Ulices Taveras MD Primary Care Provider Ulices Taveras MD Primary Care Provider Dr. Kem Davila Primary Care Provider Dr. Kem Davila Attending Provider [phone] Dr. Kem Davila Referring Provider [phone] ULICES TAVERAS Consulting Unavailable KEM DAVILA MD Attending Unavailable KEM DAVILA MD Primary Care Unavailable KEM DAVILA MD Admitting Unavailable PROVIDER, UNKNOWN Consulting Unavailable PROVIDER, UNKNOWN Consulting Unavailable Roof DIRECTOR OF LAND ACQUISITION.PRINT DESIGNER, Joseph Tomlinson Unavailable [phone] Shannan DIAZ, Tian F Unavailable Lola DIAZ, Kem Parker Primary Care Provider KEM DAVILA Primary Care Unavailable GURVINDER, HIBA Attending Unavailable KEM DAVILA Primary Care Unavailable GURVINDER, HIBA Attending Unavailable Lola DIAZ, Dr. Fonseca Primary Care Provider Dr. Kem Davila MD Referring Provider Nikolay JACK SETTER-CJoseph Attending Provider Anna Palomares Attending Unavailable Lola, Kem Primary Care Unavailable Lola, Kem Referring Unavailable Lola, Kem Primary Care Unavailable Lola Kem Attending Unavailable Lola, Kem Referring Unavailable Lola, Kem Primary Care Unavailable Swisshome, Kem Referring Unavailable Roof JACK SETTER, Joseph Tomlinson Attending Unavailable Dr. Jayson Ellison DO Emergency Provider Medications Current Medications Medication Drug Class(es) Dates Sig (Normalized) Sig (Original) aspirin 81 mg chewable tablet (20 sources) Nonsteroidal Anti-inflammatory Drug Start: 03-07-2018 take 1 tablet by mouth once daily Aspirin 81 MG tablet,chewable Active 81 mg PO DAILY@0800 0 March 07, 2018 12:00am Start: 09-26-2017 End: 08-23-2018 take 1 tablet by mouth once daily Aspirin (Adult Aspirin Regimen) 81 mg tablet,delayed release (DR/EC) Discontinued 81 mg PO daily November 21, 2017 1:00am August 23, 2018 10:21am HEART Start: 01-04-2011 take 1 tablet by lesly th once daily ASPIRIN 81 MG TABS One tablet by mouth daily ASPIRIN [id number] Yee Larry Comment on above: Take 1 tablet by lesly th once daily. biotin 5 mg oral capsule (5 sources) Start: 05-12-2025 take 1 capsule by mouth once daily Biotin 5 mg capsule Active 5 mg PO daily Tri 28th, 2025 12:00am BIOTIN ORAL Take by mouth once daily. 0 Active Comment on above: Take by mouth once d aily. Blood-Glucose Meter (2 sources) Start: 11-10-2022 Blood-Glucose Meter Active 0 .Route 1 November 10, 2022 11:02am use daily to monitor blood glucose Start: 11-10-2022 End: 11-10-2022 Blood-Glucose Meter Disconti nued 0 .Route 1 November 10, 2022 12:00am November 10, 2022 11:03am use daily to monitor blood glucose Blood-Glucose Meter misc (4 sources) Start: 11-10-2022 Blood-Glucose Meter misc Active 0 .Route 1 0 November 10, 2022 12:02pm Diet-controlled diabetes mellitus Type 2 diabetes mellitus without complications use daily to monitor blood glucose Start: 11-10-2022 End: 11-10-2022 Blood-Glucose Meter misc Dis continued 0 .Route 1 0 November 10, 2022 1:00am November 10, 2022 12:03pm Diet-controlled diabetes mellitus Type 2 diabetes mellitus without complications use daily to monitor blood glucose Calcium Carb-D3-Mag [id number] 333 mg-200 unit -133 mg-5 mg tablet (2 sources) Start: 05-12-2025 Calcium Carb-D3-Mag [id number] 333 mg-200 unit -133 mg-5 mg tablet Active 1 {tbl} PO daily May 12, 2025 12:00am administer with a meal calcium/mag/vitamin D2/Zn/min (MERYL-MAG ZINC II ORAL) (3 sources) calcium/mag/enrique min D2/Zn/min (MERYL-MAG ZINC II ORAL) Take by mouth once daily. 0 Active Comment on above: Take by mouth once d aily. cyclobenzaprine hydrochloride 5 mg oral tablet (20 sources) Muscle Relaxant Start: 04-23-2022 End: 05-03-2022 take 1 tablet by mouth twice daily as needed for muscle spasms cyclobenzaprine (FLEXERIL) 5 MG tablet Take 1 tablet by mouth 2 times daily as needed for Muscle spasms 10 tablet 0 04/23/2022 05/03/2022 Active Start: 04-23-2022 End: 04-23-2022 cyclobenzaprine (FLEXERIL) t ablet 5 mg Comment on above: Take 5 mg by mouth t wice daily as needed. Digestive Enzymes cap (20 sources) Digestive Enzyme s cap Take by mouth. 0 Active Comment on above: Take by mouth. finasteride 5 mg oral tablet (10 sources) 5-alpha Reductase Inhibitor Start: 08-14-2024 End: 11-25-2024 take 1 tablet by mouth once daily Finasteride (Proscar) 5 mg tablet Active 5 mg PO DAILY 90 November 25, 2024 12:53pm Start: 12-04-2023 End: 06-03-2024 take 1 tablet by mouth once daily Finasteride (Proscar) 5 mg tablet Discontinued 5 mg PO DAILY February 09, 2024 12:18pm June 03, 2024 2:10pm Lactobacillus Combination No.9 (Adult 50 Plus Probiotic) 4 billion cell capsule (2 sources) Start: 05-12-2025 take 4 capsules by mouth once daily Lactobacillus Combination No.9 (Adult 50 Plus Probiotic) 4 billion cell capsule Active 4000 NMA PO daily May 12, 2025 12:00am administer with a meal mv-min/vit C/glut/lysine/hb124 (IMMUNE SUPPORT ORAL) (3 sources) mv-min/vit C/glut/lysine/hb124 (IMMUNE SUPPORT ORAL) Take by mouth once daily. 0 Active Comment on above: Take by mouth once d aily. predniSONE 20 mg oral tablet (2 sources) Start: 04-25-2022 End: 05-02-2022 take 2 tablets by mouth once daily predniSONE (DELTASONE) 20 mg tablet Take 2 tablets by mouth once daily for 7 days. 14 tablet 0 04/25/2022 05/02/2022 Active Comment on above: Take [address] [facility] once daily for 7 days. prevagen (2 sources) Start: 05-12-2025 prevagen Activ e 1 NMA PO daily May 12, 2025 12:00am tamsulosin hydrochloride 0.4 mg oral capsule (20 sources) alpha-Adrenerg ic Malcolm Start: 07-18-2024 End: 11-25-2024 take 1 capsule by mouth once daily Tamsulosin 0.4 mg capsule Active 0.4 mg PO DAILY November 25, 2024 12:54pm Start: 10-22-2020 End: 06-03-2024 take 1 capsule by mouth once daily Tamsulosin 0.4 mg capsule Discontinued 0.4 mg PO DAILY 90 1 December 12, 2023 4:10pm June 03, 2024 2:10pm Start: 09-19-2019 End: 10-22-2020 take 2 capsules by mouth twice daily Tamsulosin 0.4 MG capsule Discontinued 0.8 mg PO TWICE A DAY 60 0 September 19, 2019 1:00am October 22, 2020 12:04pm Start: 09-19-2019 End: 10-22-2020 take 0.8 mg by mouth twice daily Tamsulosin Discontinu ed 0.8 MG PO TWICE A DAY 60 September 19, 2019 12:00am October 22, 2020 11:04am Comment on above: Take 0.4 mg by mouth once daily. total beets (2 sources) Start: 05-12-2025 total beets Ac tive 3 {tbl} PO daily May 12, 2025 12:00am Completed/Discontinued Medications Medication Drug Class(es) Dates Sig (Normalized) Sig (Original) 8 hr acetaminophen 650 mg extended release oral tablet (16 sources) Start: 10-25-2021 End: 02-08-2024 take 3 tablets by mouth every twelve hours Acetaminophen 650 mg tablet extended release Discontinued 1950 mg PO Q12H October 25, 2021 1:00am February 08, 2024 11:05am Start: 10-25-2021 take 1950 mg by mout h every twelve hours Acetaminophen Active 1950 MG PO Q12H October 25, 2021 12:00am Start: 03-07-2018 End: 08-23-2018 take 2 tablets by mouth every eight hours Acetaminophen 500 MG tablet Discontinued 1000 mg PO EVERY 8 HOURS 90 0 March 07, 2018 12:00am August 23, 2018 10:22am Start: 03-07-2018 End: 08-23-2018 take 1000 mg by mouth every eight hours Acetaminophen Discontinued 1000 MG PO EVERY 8 HOURS 90 March 06, 2018 11:00pm August 23, 2018 9:22am atorvastatin 80 mg oral tablet (20 sources) HMG-CoA Reductase Inhibitor Start: 12-20-2011 End: 11-25-2024 take 1 tablet by mouth at bedtime Atorvastatin (Lipitor) 80 mg tablet Discontinued 80 mg PO AT BEDTIME 90 1 December 12, 2023 4:09pm November 25, 2024 12:54pm CHOLESTEROL Start: 12-20-2011 take 1 tablet by lesly th once daily ATORVASTATIN CALCIUM 40 MG TABS One tablet by mouth daily ATORVASTATIN CALCIUM [id number] Baldev Freed MD Comment on above: Take by mouth. Take 1 tablet by lesly th once daily. TAKE 1 TABLET BY LESLY TH EVERY DAY azithromycin 250 mg oral tablet (4 sources) Macrolide Antimicrobial Start: 10-20-2023 End: 05-13-2024 azithromycin (ZITHROMAX) 250 mg tablet TAKE ONE TABLET BY MOUTH EVERY DAY FOR FOUR DAYS. Start ON DAY TWO of therapy. 0 10/20/2023 05/13/2024 Discontinued (Course of therapy completed) Start: 10-20-2023 End: 12-04-2023 take 2 tablets by mouth once daily Azithromycin (Zithromax Z-Brooks) 250 mg tablet Discontinued 250 mg PO DAILY 4 4 0 October 20, 2023 1:00am December 04, 2023 3:44pm start on day 2 of therapy benzonatate 200 mg oral capsule (1 source) Non-narcotic Antitussive Start: 10-18-2023 End: 05-13-2024 take 1 capsule by mouth every eight hours as needed Benzonatate 200 mg capsule Take 200 mg by mouth three times a day as needed. 0 10/18/2023 05/13/2024 Discontinued (Course of therapy completed) Blood-Glucose Meter (Advanced Glucose Meter) misc (3 sources) Start: 11-03-2022 End: 11-10-2022 Blood-Glucose Meter (Advanced Glucose Meter) misc Discontinued 0 .Route 1 0 November 03, 2022 1:00am November 10, 2022 11:48am Diet-controlled diabetes mellitus Type 2 diabetes mellitus without complications As directed Start: 11-03-2022 End: 11-10-2022 Blood-Glucose Meter (Advance d Glucose Meter) misc Discontinued 0 .Route 1 November 03, 2022 12:00am November 10, 2022 10:48am As directed ciprofloxacin 500 mg oral tablet (8 sources) Quinolone Antimicrobial Start: 09-19-2019 End: 10-22-2020 take 1 tablet by mouth twice daily Ciprofloxacin Hcl 500 MG tablet Discontinued 500 mg PO TWICE A DAY 80 0 September 19, 2019 1:00am October 22, 2020 12:03pm clindamycin 300 mg oral capsule (20 sources) Lincosamide Antibacterial Start: 12-06-2021 End: 05-13-2024 clindamycin (CLEOCIN) 300 mg capsule Comment on above: PLEASE SEE ATTACHED FOR DETAILED DIRECTIONS clopidogrel 75 mg oral tablet (20 sources) P2Y12 Platelet Inhibitor Start: 01-04-2011 End: 05-13-2024 take 1 tablet by mouth at bedtime Clopidogrel 75 MG tablet Discontinued 75 mg PO AT BEDTIME March 07, 2018 12:00am August 23, 2018 10:21am Comment on above: Take 1 tablet by lesly th once daily. escitalopram 20 mg oral tablet (20 sources) Serotonin Reuptake Inhibitor Start: 12-04-2018 End: 11-25-2024 take 1 tablet by mouth once daily Escitalopram Oxalate 20 mg tablet Discontinued 20 mg PO DAILY July 02, 2024 12:34pm November 25, 2024 12:54pm Comment on above: Take 20 mg by mouth. Take 1 tablet by lesly th once daily. esomeprazole 40 mg delayed release oral capsule (4 sources) Proton Pump Inhibitor Start: 05-18-2011 take 1 tablet by mouth once daily NEXIUM 40 MG CPDR One tablet by mouth daily ESOMEPRAZOLE MAGNESIUM [id number] Yee Larry Start: 05-18-2011 take 1 tablet by lesly th once daily NEXIUM 40 MG CPDR One tablet by mouth daily ESOMEPRAZOLE MAGNESIUM [id number] Yee Larry hydroCHLOROthiazide 12.5 mg / losartan potassium 50 mg oral tablet (20 sources) Thiazide Diuretic, Angiotensin 2 Receptor Malcolm Start: 11-21-2017 End: 05-12-2022 take 1 tablet by mouth once daily Losartan-Hydrochlorothiazide Discontinued 1 TABLET PO daily November 21, 2017 12:00am May 12, 2022 10:52am Start: 12-20-2011 End: 05-13-2024 losartan-hydroCHLOROthiazide (HYZAAR) 50-12.5 mg per tablet Take by mouth. 0 12/20/2011 05/13/2024 Discontinued (Discontinued by another Health Care Provider) Start: 12-20-2011 End: 05-12-2022 Losartan-Hydrochlorothiazide 50-12.5 mg tablet Discontinued 1 {tbl} PO daily November 21, 2017 1:00am May 12, 2022 11:52am BP Comment on above: Take by mouth. hydroCHLOROthiazide 12.5 mg / valsartan 80 mg oral tablet (4 sources) Thiazide Diuretic, Angiotensin 2 Receptor Malcolm Start: 01-05-20 take 1 tablet by mouth once daily DIOVAN HCT 80-12.5 MG TABS One tablet by mouth daily VALSARTAN-HYDROCHL OROTHIAZIDE [id number] Yee Larry Start: 01-04-2011 [facility] 80-12.5 MG TABS One tablet by mouth daily VALSARTAN-HYDROCHLOROTHIAZIDE [id number] Yee Stacyward indomethacin 50 mg oral capsule (20 sources) Nonsteroidal Anti-inflammatory Drug Start: 11-11-2021 End: 05-13-2024 take 1 capsule by mouth twice daily as needed indomethacin (INDOCIN) 50 mg capsule TAKE 1 CAPSULE BY MOUTH TWICE A DAY NEEDED 0 11/11/2021 05/13/2024 Discontinued Start: 02-26-2018 End: 08-23-2018 take 2 capsules by mouth twice daily Indomethacin 25 MG capsule Discontinued 50 mg PO TWICE A DAY February 26, 2018 12:00am August 23, 2018 10:22am GOUT Start: 02-26-2018 End: 08-23-2018 take 50 mg by mouth twice daily Indomethacin Discontin ued 50 MG PO TWICE A DAY February 25, 2018 11:00pm August 23, 2018 9:22am Comment on above: TAKE 1 CAPSULE BY [facility] TWICE A DAY NEEDED 1 ml ketorolac tromethamine 30 mg/ml cartridge (1 source) Nonsteroidal Anti-inflammatory Drug, Cyclooxygenase Inhibitor Start: 2021 End: 2021 ketorolac (TORADOL) injection 15 mg losartan potassium 50 mg oral tablet (20 sources) Angiotensin 2 Receptor Malcolm Start: 2021 End: 2024 take 1 tablet by mouth once daily Losartan 50 mg tablet Discontinued 50 mg PO DAILY 90 July 18, 2024 3:39pm November 25, 2024 12:54pm Comment on above: Take by mouth. Take 50 mg by mouth once daily. methylPREDNISolone 4 mg oral tablet (1 source) Corticosteroid Start: 2021 End: 2021 methylPREDNISolone (MEDROL DOSE-PACK) 4 mg Dose-Pack TAKE BY MOUTH DIRECTED ON INSIDE OF PACKAGE 0 04/22/2022 04/25/2022 Discontinued (Course of therapy completed) Comment on above: TAKE BY MOUTH DIR ECTED ON INSIDE OF PACKAGE 24 hr metoprolol succinate 25 mg extended release oral tablet (20 sources) beta-Adrenergic Malcolm Start: 2010 End: 2024 take 1 tablet by mouth once daily Metoprolol Succinate 25 mg tablet extended release 24 hr Discontinued 25 mg PO daily 90 August 14, 2024 9:44am February 21, 2025 4:18pm HEART/BP Start: 01-04-2011 End: 05-13-2024 take 1 tablet by mouth every twenty-four hours metoprolol succinate ER (TOPROL XL) 25 mg 24 hr tablet Take by mouth. 0 01/04/2011 05/13/2024 Discontinued (Duplicate Entry) Start: 01-04-2011 METOPROLOL TAR TRATE 25 MG TABS 1/2 tablet 2 X daily METOPROLOL TARTRATE [id number] Yee Larry Comment on above: Take by mouth. Take 1 tablet by lesly th once daily. TAKE 1 TABLET BY LESLY TH EVERY DAY 24 hr mirabegron 25 mg extended release oral tablet (2 sources) beta3-Adrenergic Agonist Start: 5 End: 5 take 1 tablet by mouth once daily Mirabegron (Myrbetriq) 25 mg tablet extended release 24 hr Discontinued 25 mg PO daily 30 November 26, 2024 1:00am May 12, 2025 3:10pm morphine sulfate 15 mg extended release oral tablet (8 sources) Opioid Agonist Start: 8 End: 8 take 1 tablet by mouth twice daily Morphine 15 MG tablet Discontinued 15 mg PO TWICE A DAY 7 March 07, 2018 12:00am August 23, 2018 10:21am Acute postoperative pain of left knee Other acute postprocedural pain 24 hr niacin 1000 mg extended release oral tablet (20 sources) Nicotinic Acid Start: 1 End: 2 take 1 tablet by mouth once daily NIASPAN 1000 MG CR-TABS One tablet by mouth daily NIACIN (ANTIHYPERLIPIDEMIC) [id number] Baldev Freed MD Start: 05-18-2011 End: 04-24-2012 take 1 tablet by mouth once daily NIASPAN 1000 MG CR-TABS One tablet by mouth daily NIACIN (ANTIHYPERLIPIDEMIC) [id number] Baldev Freed MD Start: 01-04-2011 End: 04-24-2012 SLO-NIACIN 500 MG CR-TABS 2 tablets at bedtime NIACIN [id number] Baldev Freed MD Start: 01-04-2011 End: 04-24-2012 SLO-NIACIN 500 MG CR-TABS 2 tablets at bedtime NIACIN [id number] Baldev Freed MD nitroglycerin 0.4 mg sublingual tablet (20 sources) Nitrate Vasodilator Start: 11-21-2017 End: 12-12-2023 Nitroglycerin 0.4 mg tablet, sublingual Discontinued 0.4 mg SL every 5 to 15 minutes as needed for Cardiac/Chest Pain 30 0 August 02, 2023 10:12am December 04, 2023 4:18pm Start: 11-21-2017 End: 08-02-2023 Nitroglycerin Active 0.4 MG SL every 5 to 15 minutes August 02, 2023 9:12am Start: 01-04-2011 End: 05-09-2022 nitroglycerin sublingual (NI TROQUICK) 0.4 mg SL tablet Nitroglycerin Active 0.4 MG SL every 5 to 15 minutes November 21, 2017 5:49pm 1 Bottle of 25 3 05/09/2022 Active Start: 01-04-2011 NITROSTAT 0.4 MG SUBL 1 tablet under tongue every 5 min up to 3 X NITROGLYCERIN [id number] Yee Larry Comment on above: Nitroglycerin Active 0.4 MG SL every 5 to 15 minutes November 21, 2017 5:49pm omeprazole 40 mg delayed release oral capsule (20 sources) Proton Pump Inhibitor Start: 2 End: 5 take 1 capsule by mouth at bedtime Omeprazole 40 mg capsule,delayed release(DR/EC) Discontinued 40 mg PO AT BEDTIME 90 1 August 20, 2024 12:12pm March 11, 2025 12:57pm GERD Start: 01-04-2011 End: 04-24-2012 take 1 tablet by mouth once daily PRILOSEC OTC 20 MG TBEC One tablet by mouth daily OMEPRAZOLE MAGNESIUM [id number] Yee Larry Start: 01-04-2011 End: 04-24-2012 take 1 tablet by mouth once daily PRILOSEC OTC 20 MG TBEC One tablet by mouth daily OMEPRAZOLE MAGNESIUM [id number] Yee Larry Comment on above: Take 40 mg by mouth once daily. Take [address] [facility] once daily. oxyCODONE hydrochloride 5 mg oral tablet (8 sources) Opioid Agonist Start: End: take 5-10 mg by mouth every six hours as needed for pain Oxycodone 5 MG tablet Discontinued 5 - 10 mg PO EVERY 6 HOURS NEEDED as needed for Mod-Severe Pain (-07/25) 60 7 0 March 07, 2018 12:15pm August 23, 2018 10:21am Acute postoperative pain of left knee Other acute postprocedural pain pregabalin 25 mg oral capsule (15 sources) Start: End: pregabalin (LYRICA) 25 mg capsule once daily. 0 07/19/2022 05/13/2024 Discontinued Comment on above: once daily. rosuvastatin calcium 40 mg oral tablet (4 sources) HMG-CoA Reductase Inhibitor Start: take 1 tablet by mouth once daily CRESTOR 40 MG TABS One tablet by mouth daily ROSUVASTATIN CALCIUM [id number] Yee Larry secretin human, synthetic 0.016 mg injection (20 sources) Start: End: secretin, Human, (CHIROSTIM) 16 mcg solr For MRI PANCREAS FUNCTION WO/W IVCON. Inject 0.2 mcg/kg/dose intravenously as directed. Slow push at the appropriate time during MRI 1 Each 0 12/15/2021 05/13/2024 Discontinued Comment on above: For MRI PANCREAS FUN CTION WO/W IVCON. Inject 0.2 mcg/kg/dose intravenously as directed. Slow push at the appropriate time during MRI sildenafil 50 mg oral tablet (8 sources) Phosphodiesterase 5 Inhibitor Start: 011 End: 012 take 1 tablet by mouth once daily VIAGRA 50 MG TABS One tablet by mouth daily SILDENAFIL CITRATE [id number] Yee Larry sour coelho allergenic extract (16 sources) Non-Standardized Food Allergenic Extract, Non-Standardized Plant Allergenic Extract Start: 022 End: 024 take 1 mg by mouth twice daily Sour Coelho Extract (Tart Coelho Extract) 1,000 mg capsule Discontinued mg PO TWICE A DAY October 25, 2021 11:20am February 08, 2024 11:05am Start: 10-25-2021 take 1 mg by mouth twice daily Sour Coelho Extract (Tart Coelho Extract) 1,000 mg capsule Active MG PO TWICE A DAY October 25, 2021 10:20am Start: 10-25-2021 take 1 mg by mouth twice daily Sour Coelho Extract (Tart Coelho Extract) 1,000 mg capsule Active MG PO TWICE A DAY October 25, 2021 11:20am Start: 10-22-2020 End: 10-25-2021 Sour Coelho Extract (Tart Ch erry Extract) 1,000 mg capsule Discontinued MG PO October 22, 2020 12:04pm October 25, 2021 11:21am Start: 10-22-2020 End: 10-25-2021 Sour Coelho Extract (Tart Ch erry Extract) 1,000 mg capsule Discontinued mg PO October 22, 2020 1:00am October 25, 2021 11:21am Start: 10-22-2020 End: 10-25-2021 Sour Coelho Extract (Tart Ch erry Extract) 1,000 mg capsule Discontinued MG PO October 22, 2020 12:00am October 25, 2021 10:21am Start: 10-22-2020 End: 10-25-2021 Sour Coelho Extract (Tart Ch erry Extract) 1,000 mg capsule Discontinued MG PO October 22, 2020 1:00am October 25, 2021 11:21am Problems Active Problems Problem Classification Problem Date Documented Da te Episodic/Chronic Acute cerebrovascular disease (4 sources) Cerebral infarction; Translations: [Cerebral infarction, unspecified] Onset: 12-26-2022 Chronic Anxiety disorders (20 sources) Anxiety; Translations: [Anxiety disorder, unspecified] Onset: 07-01-2019 03-07-2022 Chronic Chronic obstructive pulmonary disease and bronchiectasis (3 sources) Bronchitis; Translations: [Bronchitis, not specified as acute or chronic] 10-20-2023 Episodic Complication of device; implant or graft (8 sources) Atherosclerosis of coronary artery bypass graft(s) without angina pectoris; Translations: [Atherosclerosis of coronary artery bypass graft(s) without angina pectoris] Onset: 01-04-2011 01-04-2011 Chronic Coronary atherosclerosis and other heart disease (20 sources) Coronary atherosclerosis; Translations: [Coronary arteriosclerosis] Onset: 09-09-2006 01-04-2011 Chronic Comment on above: [id number] LAD w/ 4.0 x 12 mm Liberte Stent 09/09/2006; Diabetes mellitus without complication (20 sources) Type 2 diabetes mellitus; Translations: [Type 2 diabetes mellitus without complications] Onset: 09-26-2017 03-07-2022 Chronic Disorders of lipid metabolism (20 sources) Hyperlipidemia; Translations: [Hyperlipidemia, unspecified] Onset: 01-04-2011 01-04-2011 Chronic E Codes: Fall (1 source) Fall; Translations: [Unspecified fall, initial encounter] Episodic Essential hypertension (20 sources) Hypertensive disorder; Translations: [Essential hypertension] Onset: 01-04-2011 01-04-2011 Chronic Gout and other crystal arthropathies (20 sources) Gout; Translations: [Gout, unspecified] Onset: 09-26-2017 03-07-2022 Chronic Hyperplasia of prostate (4 sources) Benign prostatic hyperplasia; Translations: [Benign prostatic hyperplasia without lower urinary tract symptoms] Onset: 11-25-2024 11-03-2022 Chronic Immunizations and screening for infectious disease (1 source) Encounter for immunization; Translations: [Need for prophylactic vaccination and inoculation against unspecified single disease] 08-28-2023 Episodic Mood disorders (20 sources) Depressive disorder; Translations: [Depression] Onset: 09-26-2017 03-07-2022 Chronic Nausea and vomiting (8 sources) Vomiting; Translations: [Vomiting, unspecified] 12-27-2021 Episodic Osteoarthritis (1 source) Osteoarthritis of bilateral hip joints; Translations: [Bilateral primary osteoarthritis of hip] Chronic Other ear and sense organ disorders (1 source) Bilateral hearing loss; Translations: [Unspecified hearing loss, bilateral] Chronic Other ear and sense organ disorders (1 source) Impacted cerumen in left ear; Translations: [Impacted cerumen, left ear] Episodic Other gastrointestinal disorders (8 sources) Constipation; Translations: [Constipation, unspecified] 12-27-2021 Episodic Other gastrointestinal disorders (4 sources) Obstipation; Translations: [Constipation, unspecified] 06-29-2022 Episodic Other gastrointestinal disorders (2 sources) Functional diarrhea; 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] Episodic Other hereditary and degenerative nervous system conditions (3 sources) Impaired cognition; Translations: [Mild cognitive impairment, so stated] Chronic Other lower respiratory disease (6 sources) Dyspnea; Translations: [Shortness of breath] 11-03-2022 Episodic Other lower respiratory disease (2 sources) Shortness of breath; Translations: [Shortness of breath] Episodic Other lower respiratory disease (1 source) Dyspnea on exertion; Translations: [Other forms of dyspnea] 05-19-2025 Episodic Other male genital disorders (20 sources) Male erectile dysfunction, unspecified; Translations: [Impotence of organic origin] Onset: 05-06-2019 03-07-2022 Chronic Other nervous system disorders (4 sources) Post-surgery back pain; Translations: [Other acute postprocedural pain] 06-29-2022 Episodic Other nervous system disorders (2 sources) Abnormal gait; Translations: [Unspecified abnormalities of gait and mobility] Episodic Other nervous system disorders (1 source) Word finding difficulty ; Translations: [Other speech disturbances] 05-15-2024 Episodic Other non-traumatic joint disorders (20 sources) Polyarthropathy; Translations: [Polyarthritis, unspecified] Onset: 11-05-2018 03-07-2022 Chronic Other non-traumatic joint disorders (1 source) Pain in right hip joint; Translations: [Pain in right hip] Episodic Other nutritional; endocrine; and metabolic disorders (5 sources) Obesity; Translations: [Obesity, unspecified] 05-11-2022 Chronic Other screening for suspected conditions (not mental disorders or infectious disease) (20 sources) Thallium stress test abnormal; Translations: [Abnormal result of other cardiovascular function study] Onset: 05-06-2019 03-07-2022 Episodic Pancreatic disorders (not diabetes) (4 sources) Exocrine pancreatic insufficiency; Translations: [Exocrine pancreatic insufficiency] Episodic Residual codes; unclassified (3 sources) Memory impairment; Translations: [Other amnesia] 11-03-2022 Episodic Spondylosis; intervertebral disc disorders; other back problems (2 sources) Acute back pain with sciatica; Translations: [Lumbago with sciatica, right side] Episodic Syncope (8 sources) Syncope; Translations: [Syncope and collapse] Episodic Unclassified (4 sources) Body mass index (BMI) 33.0-33.9, adult; Translations: [Body mass index (BMI) 33.0-33.9, adult] Onset: 08-02-2017 08-02-2017 Chronic Unclassified (3 sources) Long-term drug therapy; Translations: [Long-term (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 of other medications] Onset: 04-19-2012 04-19-2012 Past or Other Problems Problem Classification Problem Date Documented Da te Episodic/Chronic Conditions associated with dizziness or vertigo (20 sources) Dizziness; Translations: [Dizziness and giddiness] Onset: 02-01-2019 03-07-2022 Episodic Coronary atherosclerosis and other heart disease (10 sources) Coronary angioplasty status; Translations: [History of myocardial infarction] Onset: 09-09-2006 01-04-2011 Episodic Gastroduodenal ulcer (except hemorrhage) (20 sources) H/O: peptic ulcer; Translations: [Personal history of peptic ulcer disease] Onset: 09-26-2017 03-07-2022 Episodic Genitourinary symptoms and ill-defined conditions (20 sources) Increased frequency of urination; Translations: [Frequency of micturition] Onset: 09-26-2017 03-07-2022 Episodic Nonspecific chest pain (4 sources) Precordial pain; Translations: [Precordial pain] Onset: 01-04-2011 01-04-2011 Episodic Other aftercare (1 source) Long-term (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 of other medications; Translations: [Long-term (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 of other medications] Onset: 04-19-2012 04-19-2012 Episodic Other aftercare (9 sources) Patient encounter status; Translations: [skilled nursing (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 of 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] Onset: 04-19-2012 03-07-2022 Episodic Other circulatory disease (1 source) History of myocardial infarction; Translations: [Old myocardial infarction] Onset: 01-04-2011 01-04-2011 Episodic Other ear and sense organ disorders (20 sources) Impacted cerumen of bilateral ears; Translations: [Impacted cerumen, bilateral] Onset: 02-01-2019 03-07-2022 Episodic Other nervous system disorders (4 sources) Magnetic resonance imaging of brain abnormal; Translations: [White matter disease, unspecified] Onset: 12-26-2022 Episodic Otitis media and related conditions (20 sources) Dysfunction of eustachian tube; Translations: [Other specified disorders of Eustachian tube, unspecified ear] Onset: 02-01-2019 03-07-2022 Episodic Septicemia (except in labor) (10 sources) Sepsis; Translations: [Sepsis, unspecified organism] Onset: 09-26-2019 Resolved: 06-26-2022 03-07-2022 Episodic Urinary tract infections (20 sources) Urinary tract infectious disease; Translations: [Urinary tract infection, site not specified] Onset: 09-26-2019 03-07-2022 Episodic Results Test Name Value Interpretation Reference Range Facility Absolute lymphocyte countOrd ered By: Jayson Ellison on 05-19-2025 Lymphocytes Auto (Unsp spec) [#/Vol] 1.47 10*3/uL 0.83-4.51 [facility] Absolute neutrophil countOrd ered By: Jayson Ellison on 05-19-2025 Neutrophils (Bld) [#/Vol] 5.1 10*3/uL 2.0-7.7 [facility] Anion gap in Serum or Plasma Ordered By: Jayson Ellison on 05-19-2025 Anion gap [Moles/Vol] 12 mmol/L 5-15 [facility] Automated lymphocyte count a s percentage of total leukocytesOrdered By: Jayson Ellison on 05-19-2025 Lymphocytes/100 WBC Auto (Unsp spec) 19.0 % 19-41 [facility] BUN/creatinine ratioOrdered By: Jayson Ellison on 08-04-2025 Urea nitrogen/Creatinine [Mass ratio] 16.0 mg/mg 10-20 [facility] Basophil percentageOrdered B y: Jayson Ellison on 05-19-2025 Basophils/100 WBC (Bld) 0.5 % 0-1 [facility] Bilirubin Test strip Ql (U)O rdered By: Jayson Ellison on 05-19-2025 Bilirubin Ql (U) Negative Negative [facility] Carbon dioxide, total [Moles /volume] in Central venous bloodOrdered By: Jayson Ellison on 05-19-2025 CO2 [Moles/Vol] 22.8 mmol/L 21.0-32.0 [facility] Chloride assayOrdered By: Dylon Ellison on 05-19-2025 Chloride [Moles/Vol] 106 mmol/L 98-108 [facility] Eosinophil percentageOrdered By: Jayson Ellison on 05-19-2025 Eosinophils/100 WBC (Bld) 2.5 % 0-5 [facility] Erythrocyte distribution wid th ratioOrdered By: [place] Scot on 05-19-2025 Erythrocyte distribution width (RBC) [Ratio] 13.4 % 11.6-14.6 [facility] Erythrocyte distribution wid th standard deviationOrdered By: Jaysonjudson Loving on 05-19-2025 Erythrocyte distribution width (RBC) [Ratio] 45.6 fl High 35.1-43.9 [facility] Glomerular filtration rate ( GFR) estimation/1.73 sq m using serum, plasma, or whole bOrdered By: Jayson Ellison on 05-19-2025 GFR/1.73 sq M.predicted among non-blacks MDRD (S/P/Bld) [Vol rate/Area] 64 mL/min/{1.73_m2} >60 [facility] Comment on above: mL/min/1.73m2 CKD-EP I Creatinine Equation (2020) Hematocrit Auto (Bld) [Volum e fraction]Ordered By: Jayson Ellison on 05-19-2025 Hematocrit (Bld) [Volume fraction] 39.8 % Low 40-54 [facility] Hemoglobin measurementOrdere d By: Jayson Ellison on 05-19-2025 Hemoglobin (Bld) [Mass/Vol] 13.0 g/dL 13.0-16.5 [facility] Immature granulocytes/100 WB C Auto (Bld)Ordered By: Jayson Ellison on 05-19-2025 Immature granulocytes/100 WBC (Bld) 0.100 % 0.0-0.9 [facility] Comment on above: IG% - Immature Granu locytes (promyelocytes, myelocytes and metamyelocytes) > 1% indicates that a LEFT SHIFT is Present. Ketones Test strip Ql (U)Ord ered By: Jayson Ellison on 05-19-2025 Ketones Ql (U) Negative Negative [facility] MCV (mean corpuscular volume ) determinationOrdered By: Jayson Ellison on 05-19-2025 MCV (RBC) [Entitic vol] 93.2 fL 80-94 [facility] Mean corpuscular hemoglobin (MCH) determinationOrdered By: Jayson Ellison on 05-19-2025 MCH (RBC) [Entitic mass] 30.4 pg 27.0-32.0 [facility] Mean corpuscular hemoglobin concentration (MCHC) determinationOrdered By: Jayson Ellison on 05-19-2025 MCHC (RBC) [Mass/Vol] 32.7 g/dL 32-36 [facility] Mean platelet volume determi nationOrdered By: Jayson Ellison on 05-19-2025 Platelet mean volume (Bld) [Entitic vol] 10.7 fL 6.2-12.0 [facility] Microscopic analysis of urin e for red blood cells (RBC)Ordered By: Jayson Ellison on 05-19-2025 Microscopic analysis of urine for red blood cells (RBC) 0 SEEN /hpf 0-5 [facility] Monocyte percentageOrdered B y: Jayson Ellison on 05-19-2025 Monocytes/100 WBC (Bld) 11.5 % High 0-10 [facility] Mucus LM Ql (Urine sed)Order ed By: Jayson Ellison on 05-19-2025 Mucus Ql (Urine sed) 0 SEEN /hpf [facility] Natriuretic peptide.B prohor ora N-Terminal [Mass/volume] in Serum or PlasmaOrdered By: Jayson Ellison on 05-19-2025 Natriuretic peptide.B prohormone N-Terminal [Mass/Vol] 226 pg/mL <900 [facility] Comment on above: Heart Failure Unlike ly: < 300 pg/mLHeart Failure Likely< 50 Years: > 450 pg/mL50-75 Years: > 900 pg/mL>75 Years: > 1800 pg/mL Neutrophil percentageOrdered By: Jayson Ellison on 05-19-2025 Neutrophils/100 WBC (Bld) 66.4 % 47-70 [facility] Nitrite Test strip Ql (U)Ord ered By: Jayson Ellison on 05-19-2025 Nitrite Ql (U) Negative Negative [facility] Nucleated red blood cell per centageOrdered By: Jayson Ellison on 05-19-2025 Nucleated RBC/100 WBC (Bld) [Ratio] 0 % 0-5 [facility] Platelet countOrdered By: Dylon Ellison on 05-19-2025 Platelets (Bld) [#/Vol] 220 10*3/uL 150-450 [facility] Platelet estimateOrdered By: Jayson Ellison on 05-19-2025 Platelets LM Ql (Bld) ADEQUATE ADEQ [facility] Potassium measurement (mass/ volume)Ordered By: Jayson Ellison on 05-19-2025 Potassium (Unsp spec) [Mass/Vol] 4.1 mmol/L 3.3-5.1 [facility] Protein Test strip Ql (U)Ord ered By: Jayson Ellison on 05-19-2025 Protein Ql (U) 30 mg/dl High Negative [facility] RBC Auto (Bld) [#/Vol]Ordere d By: Jayson Ellison on 05-19-2025 RBC (Bld) [#/Vol] 4.27 10*6/uL Low 4.6-6.2 [facility] Serum creatinine measurement (mass/volume)Ordered By: Jayson Ellison on 05-19-2025 Creatinine [Mass/Vol] 1.21 mg/dL High 0.70-1.20 [facility] Serum glucose measurement (m ass/volume)Ordered By: Jayson Ellison on 05-19-2025 Glucose [Mass/Vol] 125 mg/dL High 70-99 [facility] Serum or plasma calcium caitlin urement (mass/volume)Ordered By: Jayson Loving on 05-19-2025 Calcium [Mass/Vol] 8.8 mg/dL 7.6-11.0 [facility] Serum or plasma urea nitroge n measurement (mass/volume)Ordered By: Jayson Ellison on 05-19-2025 Urea nitrogen [Mass/Vol] 19 mg/dL 4-19 [facility] Sodium levelOrdered By: Woody Ellison on 05-19-2025 Sodium [Moles/Vol] 140 mmol/L 133-145 [facility] Squamous epithelial cells de tection in urine sediment by light microscopyOrdered By: Jayson Ellison on 05-19-2025 Epithelial cells.squamous LM Ql (Urine sed) 0-5 SEEN /hpf 0-5 [facility] Troponin T.cardiac [Mass/vol ume] in Serum or Plasma by High sensitivity methodOrdered By: Jayson Ellison on 05-19-2025 Troponin T.cardiac High sensitivity method [Mass/Vol] 20 ng/L <22 [facility] Urine clarityOrdered By: Alvin Ellison on 05-19-2025 Clarity (U) Clear Clear [facility] Urine color determinationOrd ered By: Jayson Ellison on 05-19-2025 Color (U) Yellow Yellow [facility] Urine glucose detectionOrder ed By: Jayson Ellison on 05-19-2025 Glucose Ql (U) Normal mg/dl Normal [facility] Urine leukocyte esterase det ection by dipstickOrdered By: Jayson Ellison on 05-19-2025 Leukocyte esterase Test strip Ql (U) 25 /ul High Negative [facility] Urine pHOrdered By: Jayson Stanley on 05-19-2025 pH (U) 6.0 [pH] 5.0 - 8.0 [facility] Urine sediment bacteria coun t by microscopy (number/high power field)Ordered By: Jayson Ellison on 05-19-2025 Bacteria LM.HPF (Urine sed) [#/Area] 0 /[HPF] None Seen [facility] Urine specific gravity measu rementOrdered By: Jayson Scot on 05-19-2025 Specific gravity (U) [Rel density] 1.020 1.002-1.030 [facility] Urine urobilinogen measureme ntOrdered By: Jayson Ellison on 05-19-2025 Urobilinogen Ql (U) Normal mg/dl Normal [facility] White blood cell (WBC) count Ordered By: Jayson Ellison on 05-19-2025 WBC (Bld) [#/Vol] 7.7 10*3/uL 4.4-11.0 [facility] White blood cell countOrdere d By: Jayson Ellison on 05-19-2025 White blood cell count 0-5 SEEN /hpf 0-5 [facility] Cardiology Visit Reporton Cardiology Visit Report [facility] [address] [place] [address]. [address] [place] [address] OFFICE VISIT Date of Service: 05/12/25 MR#: [id number] Acct: [id number] Name: RUSLAN STEPHENS Rep #: [id number] : 1950 Provider: LAMAR melo Age/Sex: 74/M [place] [facility] [place] Status: Signed HPI HPI History of Present Illness Details: RUSLAN STEPHENS, is a 74 M who presents to the office today for a follow-up visit.??? He is a gentleman with a history of coronary artery disease status post bare-metal stenting to the proximal left anterior descending artery in 2005 at [facility].??? He had been doing well until 2018 when he had a stress test which was mildly abnormal and his cardiac catheterization demonstrated 70% ostial first diagonal stenosis, mid LAD with 50% stenosis in the right coronary artery with 30% stenosis.??? His ejection fraction was noted to be normal.??? He denies chest, arm, jaw, or neck discomfort. He denies palpitations. He denies bilateral lower extremity edema. He denies claudication. He denies shortness of breath with activity, shortness of breath at rest, orthopnea, or PND. He acknowledges occasional, dry cough. He denies significant, sudden weight gain. He denies lightheadedness, dizziness, near-syncope, or syncope. He denies blood in urine, blood in stool, or epistaxis. He denies fever with chills. He denies myalgia. He denies fatigue. His exercise level has remained stable. Intake Vital Signs 11/25/24 11:13 05/12/25 15:03 Height 5 ft 11 in 5 ft 11 in Weight: 242 lb 242 lb BMI 33.7 33.7 BP 140/84 H 136/75 H Blood Pressure Location Lt brachial Lt brachial Position Sitting Sitting Respiration 16 16 Pulse 59 L 67 Pulse Source Monitor Monitor Temp 98.0 F Pulse Oximetry (%) 94 93 Oxygen Delivery Method room air room air Intake Visit Reasons: 1 Y FU Corrections Caseworker Required: No Accompanied by: Is patient in pain?: No Allergies No Known Allergies Allergy (Verified 05/12/25 15:05) Medications ???Medication ???Instructions ???Recorded ???Confirmed ???Type aspirin 81 mg chewable tablet 81 mg PO DAILY@0800 03/07/1805/12 Rx blood-glucose meter #1 ea 11/10/22 11/25/24 Rx blood sugar diagnostic (Blood #50 ea 12/12/23 11/25/24 Rx Glucose Test strips) lancets 31 gauge #100 ea 12/12/23 11/25/24 Rx nitroglycerin 0.4 mg sublingual 0.4 mg sublingual Q5-15M PRN 12/1211/25/24 Rx tablet Cardiac/Chest Pain #30 tabs lancets 28 gauge (Comfort EZ #100 ea 06/03/24 11/25/24 Rx Lancets) atorvastatin 80 mg tablet (Lipitor) 80 mg PO QHS CHOLESTEROL #90 ta bs 11/25/24 05/12/25 Rx escitalopram oxalate 20 mg tablet 20 mg PO DAILY #90 tabs 11/25/24 05/12/25 Rx finasteride 5 mg tablet (Proscar) 5 mg PO DAILY #90 tabs 11/25/24 0 05/12/25 Rx losartan 50 mg tablet 50 mg PO DAILY #90 tabs 11/25/24 0 05/12/25 Rx tamsulosin 0.4 mg capsule 0.4 mg PO DAILY #90 caps 11/25/24 05/12/25 Rx metoprolol succinate 25 mg 25 mg PO QDAY HEART/BP #90 tabs 05/12/25 Rx tablet,extended release 24 hr omeprazole 40 mg capsule,delayed 40 mg PO QHS GERD #90 caps 5 05/12/25 Rx release biotin 5 mg capsule 5 mg PO QDAY 05/12/25 05/12/25 His tory calcium 333 mg-vit D3 200 1 tab PO QDAY 05/12/25 05/12/25 Hi story unit-magnesium 133 mg-zinc 5 mg tablet lactobacillus combination no.9 4 4,000 mmu cells PO QDAY 05/12/25 0 05/12/25 History billion cell capsule (Adult 50 Plus Probiotic) prevagen 1 cap PO QDAY 05/12/25 History total beets 3 tab PO QDAY 05/12/25 History Ejection fraction %: 55 Have you fallen in the past year?: No PFSH Medical History Gout Near syncope Urinary tract infection Obesity History of non-ST elevation myocardial infarction (NSTEMI) (09/09/06) Essential (primary) hypertension Hernia Hyperlipidemia Atherosclerotic heart disease of [place] coronary artery without angina pectoris Surgical History Cataract extraction status H/O wrist surgery History of back surgery History of herniorrhaphy History of knee replacement (2017) History of left heart catheterization (11/27/17) H/O knee surgery History of coronary artery stent placement (09/09/06) Family History Father Myocardial infarction CAD (coronary artery disease) Mother Hx of CABG CAD (coronary artery disease) Brother Hypertension Brother Hypertension Social History household members: spouse current occupational status: employed 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 Normal [facility] Internal Medicine Office Vis iton 11-21-2024 Internal Medicine Office Visit [facility] [address] [place] [address] [place] [address] OFFICE VISIT Date of Service: 11/25/24 MR#: [id number] Acct: [id number] Name: RUSALN STEPHENS Rep #: [id number] : 1950 Provider: Dr. Kem allen MD Age/Sex: 74/M [place] [facility] [place] Status: Signed Intake Vital Signs 06/03/24 13:02 11/25/24 11:13 Height 5 ft 11 in 5 ft 11 in Weight: 242 lb BMI 33.7 BP 140/84 H Blood Pressure Location Lt brachial Position Sitting Respiration 16 Pulse 59 L Pulse Source Monitor Temp 98.0 F Temp Source Temporal Pulse Oximetry (%) 94 Oxygen Delivery Method room air Intake Visit Reasons: 6 M FU Chief Complaint: 6 M FU Is patient in pain?: No Allergies No Known Allergies Allergy (Verified 11/25/24 11:09) Medications ???Medication ???Instructions ???Recorded ???Confirmed ???Type aspirin 81 mg chewable tablet 81 mg PO DAILY@0800 03/07/1811/25 Rx blood-glucose meter #1 ea 11/10/22 11/25/24 Rx blood sugar diagnostic (Blood #50 ea 12/12/23 11/25/24 Rx Glucose Test strips) lancets 31 gauge #100 ea 12/12/23 11/25/24 Rx nitroglycerin 0.4 mg sublingual 0.4 mg sublingual Q5-15M PRN 12/1211/25/24 Rx tablet Cardiac/Chest Pain #30 tabs lancets 28 gauge (Comfort EZ #100 ea 06/03/24 11/25/24 Rx Lancets) metoprolol succinate 25 mg 25 mg PO QDAY HEART/BP #90 tabs 11/25/24 Rx tablet,extended release 24 hr omeprazole 40 mg capsule,delayed 40 mg PO QHS GERD #90 caps 4 11/25/24 Rx release atorvastatin 80 mg tablet (Lipitor) 80 mg PO QHS CHOLESTEROL #90 ta bs 11/25/24 11/25/24 Rx escitalopram oxalate 20 mg tablet 20 mg PO DAILY #90 tabs 11/25/24 11/25/24 Rx finasteride 5 mg tablet (Proscar) 5 mg PO DAILY #90 tabs 11/25/24 0 11/25/24 Rx losartan 50 mg tablet 50 mg PO DAILY #90 tabs 11/25/24 0 11/25/24 Rx tamsulosin 0.4 mg capsule 0.4 mg PO DAILY #90 caps 11/25/24 11/25/24 Rx Have you fallen in the past year?: 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; 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) [facility] Medical History Gout Near syncope Urinary tract infection Obesity History of non-ST elevation myocardial infarction (NSTEMI) (09/09/06) Essential (primary) hypertension Hernia Hyperlipidemia Atherosclerotic heart disease of [place] coronary artery without angina pectoris Surgical History Cataract extraction status H/O wrist surgery History of back surgery History of herniorrhaphy History of knee replacement (2017) History of left heart catheterization (11/27/17) H/O knee surgery History of coronary artery stent placement (09/09/06) Family History Father Myocardial infarction CAD (coronary artery disease) Mother Hx of CABG CAD (coronary artery disease) Brother Hypertension Brother Hypertension Social History household members: spouse current occupational status: employed 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 He is due for some routine blood work. He believes he is up to date on his screening. He is up to date on his immunizations. He doesn't smoke and does need refills today. He reports he hasn't been eating as healthy. He reports he doesn't have time to exercise. He reports his job is physical. He doesn't check his blood pressure at home. He is taking his medications as prescribed without any problems. He does still eat salty foods. The patient follows with cardiology for his CAD. He last saw them in May. He is taking his medications without problems. He denies any concerns of chest pain or shortness of breath. He has a history of diabetes. It is mostly diet controlled. He does rarely check his sugars at home. He reports he checked his sugars a couple of weeks ago, but can't recall what it was. He has not been monitoring his carbohydrate/sugar intake. He is not up to date on his eye exam. He doesn't follow with podiatry but would like a referral. The patient has a history of gout. He is not currently on any medications and he hasn't had any recent gout flare ups. He is on flomax. He reports he still has urinary frequency and nocturia. He saw urology and reports he was told his prostate was not large. He is interested in trying something else for his sympto (more content not included)... Normal [facility] Internal Medicine Office Vis iton 06-03-2024 Internal Medicine Office Visit [facility] [address] [place], [place] [address] OFFICE VISIT Date of Service: 06/03/24 MR#: [id number] Acct: [id number] Name: RUSLAN STEPHENS Rep #: [id number] : 1950 Provider: LAMAR mattson Age/Sex: 73/M [place] [facility] Status: Signed Intake Vital Signs 12/04/23 14:44 02/08/24 11:01 06/03/24 13:02 Height 5 ft 11 in 5 ft 11 in 5 ft 11 in Weight: 240 lb 238 lb 234 lb BMI 33.5 33.2 32.6 BP 132/84 H 137/78 H 132/74 H Blood Pressure Location Lt brachial Lt brachial Lt brachial Position Sitting Sitting Sitting Respiration 16 18 18 Pulse 60 61 73 Pulse Source Monitor Monitor Monitor Temp 97.9 F 97.8 F Temp Source Temporal Temporal Pulse Oximetry (%) 96 94 Oxygen Delivery Method room air room air Intake Visit Reasons: 6 M FU Chief Complaint: 6 M FU Is patient in pain?: No Allergies No Known Allergies Allergy (Verified 06/03/24 13:00) Medications ???Medication ???Instructions ???Recorded ???Confirmed ???Type aspirin 81 mg chewable tablet 81 mg PO DAILY@0800 03/07/18 06/03/24 Rx blood-glucose meter #1 ea 11/10/22 06/03/24 Rx atorvastatin 80 mg tablet (Lipitor) 80 mg PO QHS CHOLESTEROL #90 tabs 12/12/23 06/03/24 Rx blood sugar diagnostic (Blood #50 ea 12/12/23 06/03/24 Rx Glucose Test strips) escitalopram oxalate 20 mg tablet 20 mg PO DAILY #90 tabs 12/12/23 06/03/24 Rx lancets 31 gauge #100 ea 12/12/23 06/03/24 Rx losartan 50 mg tablet 50 mg PO DAILY #90 tabs 12/12/23 06/03/24 Rx metoprolol succinate 25 mg 25 mg PO QDAY HEART/BP #90 tabs 12/12/23 06/03/24 Rx tablet,extended release 24 hr nitroglycerin 0.4 mg sublingual 0.4 mg sublingual Q5-15M PRN 12/12/23 06/03/24 Rx tablet Cardiac/Chest Pain #30 tabs omeprazole 40 mg capsule,delayed 40 mg PO QHS GERD #90 caps 12/12/23 06/03/24 Rx release tamsulosin 0.4 mg capsule 0.4 mg PO DAILY #90 caps 12/12/23 06/03/24 Rx finasteride 5 mg tablet (Proscar) 5 mg PO DAILY #90 tabs 04/26/24 08/19/24 Rx lancets 28 gauge (Comfort EZ #100 ea 06/03/24 06/03/24 Rx Lancets) Have you fallen in the past year?: No PFSH Medical History Atherosclerotic heart disease of [place] coronary artery without angina pectoris Essential (primary) hypertension Gout Hernia History of non-ST elevation myocardial infarction (NSTEMI) (09/09/06) Hyperlipidemia Near syncope Obesity Urinary tract infection Surgical History Cataract extraction status H/O knee surgery H/O wrist surgery History of back surgery History of coronary artery stent placement (09/09/06) History of herniorrhaphy History of knee replacement (2017) History of left heart catheterization (11/27/17) Family History Father Myocardial infarction CAD (coronary artery disease) Mother Hx of CABG CAD (coronary artery disease) Brother Hypertension Brother Hypertension Social History household members: spouse current occupational status: employed 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 He is a patient of Dr. Davila and was last seen in office on 12/04/2023. He is up to date on routine blood work. He is up-to-date on preventative screenings. He is up-to-date on immunizations. He does not smoke. He reports he is attempting to eat healthy but does state he has been drinking alot of coca-cola. Remains active. He has a history of hypertension. He does not monitor his blood pressure at home. He is taking medications as prescribed. He does attempt to monitor his salt intake. His past medical history of ASCVD, follows with cardiology. He last saw them in January 2024.No changes were made to patient's medical regimen at that time. He has a history of diabetes that is diet controlled. He does not routinely check his blood glucose at home. He has a history of gout, not currently on any routine medications. Denies any recent gout flareups. He has a history of BPH, currently managed with Flomax. At his last appointment Proscar was also added. He additionally had a follow-up appointment with urology on 05/20/2024 due to epididymitis, which has resolved. He did not notice any improvement with flomax or proscar so he does not take them (more content not included)... Normal [facility] CNOVon 05-13-2024 CNOV Office Visit (IMGCMN ) RUSLAN STEPHENS ([id number]) 1950 [facility] Date Time Provider Department 05/13/24 12:00 PM EMELI HOLLINS [facility] During your visit today, we recorded the following information about you: Pulse Blood pressure Weight 56/minute 145/86 106.4 kg Emeli Hollins MD 05/15/2024 6:39 PM Signed Geriatric Medicine Follow up Today's Visit: No new concerns. Overall memory is stable and slightly improved. Mood has significantly improved He is still working and taking night shifts when available because of financial restraints. Functional Evaluation: B-ADLs: (I=independent,A=viraj tance,D=dependent) ?Bathing: I , Dressing: I , Toileting: I , Transferring: I , Continence: I , Feeding: I , I-ADLs: Transportation: I, Medications: I , Handle Finances: I Review of systems: Weight change: no change Appetite: no change Change in memory problems from previous visit: yes Change in mood from previous visit: no Constipation, Diarrhea: no Incontinence: no Chest pain, PND, orthopnea: no Edema: no Dyspnea: no Falls/injuries/acciden ts since last visit: no The remainder of the ROS as above rest was negative. Patient's allergies, medications, and Past, Family and Social history have been reviewed with the patient, and updated as appropriate. Please see relevant sections in [facility] EHR for details Current Medications (identify differences from home medications) Current Outpatient Medications Medication Sig omeprazole (PRILOSEC) 40 mg capsule Take 1 capsule by mouth once daily. losartan (COZAAR) 50 mg tablet Take by mouth. BIOTIN ORAL Take by mouth once daily. calcium/mag/vitamin D2/Zn/min (MERYL-MAG ZINC II ORAL) Take by mouth once daily. mv-min/vit C/glut/lysine/hb124 (IMMUNE SUPPORT ORAL) Take by mouth once daily. metoprolol succinate ER (TOPROL XL) 25 mg 24 hr tablet TAKE 1 TABLET BY MOUTH EVERY DAY atorvastatin (LIPITOR) 80 mg tablet TAKE 1 TABLET BY MOUTH EVERY DAY escitalopram oxalate (LEXAPRO) 20 mg tablet Take 1 tablet by mouth once daily. nitroglycerin sublingual (NITROQUICK) 0.4 mg SL tablet Nitroglycerin Active 0.4 MG SL every 5 to 15 minutes November 21, 2017 5:49pm cyclobenzaprine (FLEXERIL) 5 mg tablet Take 5 mg by mouth twice daily as needed. aspirin, enteric coated (ASPIRIN, ENTERIC COATED) 81 mg EC tablet Take 1 tablet by mouth once daily. tamsulosin (FLOMAX) 0.4 mg Take 0.4 mg by mouth once daily. Digestive Enzymes cap Take by mouth. metoprolol succinate ER (TOPROL XL) 25 mg 24 hr tablet Take by mouth. Benzonatate 200 mg capsule Take 200 mg by mouth three times a day as needed. azithromycin (ZITHROMAX) 250 mg tablet TAKE ONE TABLET BY MOUTH EVERY DAY FOR FOUR DAYS. Start ON DAY TWO of therapy. atorvastatin (LIPITOR) 80 mg tablet Take by mouth. losartan (COZAAR) 50 mg tablet Take 50 mg by mouth once daily. pregabalin (LYRICA) 25 mg capsule once daily. clopidogrel (PLAVIX) 75 mg tablet Take 1 tablet by mouth once daily. clindamycin (CLEOCIN) 300 mg capsule indomethacin (INDOCIN) 50 mg capsule TAKE 1 CAPSULE BY MOUTH TWICE A DAY NEEDED losartan-hydroCHLOROth iazide (HYZAAR) 50-12.5 mg per tablet Take by mouth. secretin, Human, (CHIROSTIM) 16 mcg solr For MRI PANCREAS FUNCTION WO/W IVCON. Inject 0.2 mcg/kg/dose intravenously as directed. Slow push at the appropriate time during MRI (Patient not taking: Reported on 10/31/2022) No current facility-administered medications for this visit. Diagnostics: Glucose (mg/dL) Date Value 12/15/2021 108 Potassium (mmol/L) Date Value 12/15/2021 4.4 Sodium (mmol/L) Date Value 12/15/2021 141 Chloride (mmol/L) Date Value 12/15/2021 102 CO2 (mmol/L) Date Value 12/15/2021 26 Creatinine (mg/dL) Date Value 12/15/2021 0.99 BUN (mg/dL) Date Value 12/15/2021 16 Anion Gap (mmol/L) Date Value 12/15/2021 13 Calcium, Total (mg/dL) Date Value 12/15/2021 9.3 Protein, Total (g/dL) Date Value 12/15/2021 7.3 Albumin (g/dL) Date Value 12/15/2021 4.6 Bilirubin, Total (mg/dL) Date Value 12/15/2021 0.3 Alkaline Phosphatase (U/L) Date Value 12/15/2021 75 AST (U/L) Date Value 12/15/2021 39 ALT (U/L) Date Value 12/15/2021 38 CBC: Hemoglobin (g/dL) Date Value 12/15/2021 14.2 Hematocrit (%) Date Value 12/15/2021 44.1 WBC (k/uL) Date Value 12/15/2021 6.23 Platelet Count (k/uL) Date Value 12/15/2021 311 TSH (mIU/L) Date Value 12/15/[address]/MRI head - 11/08/2022 11:19 AM - Radiology, [place] In Impression IMPRESSION: Small amount of FLAIR hyperintensity in the right occipital lobe with susceptibility, and susceptibility in the adjacent cortex/subcortical white matter as well. Findings may be due to small amount of subarachnoid hemorrhage and cortical/subcortical hemorrhage, perhaps from amyloid angiopathy in the right clinical setting. No rest (more content not included)... Normal [facility] CBC + DIFFon 02-01-2024 Baso # 0.00 x10EE3/UL Normal 0.00 - 0.10 [facility] Comment on above: Performed By: #### 2 [id number] #### [facility],[address] [place] [address] 75493 Basophils/100 WBC (Bld) 0.7 % Normal 0.0 - 2.0 [facility] Comment on above: Performed By: #### 2 [id number] #### [facility],[address] [place] [address] CBC + DIFF Normal [facility] Comment on above: Result Comment: CBC- COMPLETE BLOOD COUNT Performed By: #### 2 [id number] #### [facility],[address] [place] [address] EO # 0.10 x10EE3/UL Normal 0.00 - 0.50 [facility] Comment on above: Performed By: #### 2 [id number] #### [facility],[address] [place] [address] Eosinophils/100 WBC (Bld) 2.3 % Normal 0.0 - 7.0 [facility] Comment on above: Performed By: #### 2 27927 #### [facility],[address] [place] [address] Erythrocyte distribution width (RBC) [Ratio] 14.0 % Normal 12.0 - 15.6 [facility] Comment on above: Performed By: #### 2 04659 #### [facility],[address] [place] [address] Hematocrit (Bld) [Volume fraction] 42.2 % Normal 40.0 - 52.0 [facility] Comment on above: Performed By: #### 2 71636 #### [facility],[address] [place] [address] Hemoglobin (Bld) [Mass/Vol] 14.1 g/dL Normal 13.0 - 17.5 [facility] Comment on above: Performed By: #### 2 79549 #### [facility],[address] [place] [address] 32215 Lymph # 0.90 x10EE3/UL Normal 0.80 - 2.80 [facility] Comment on above: Performed By: #### 2 31130 #### [facility],[address] [place] [address] 13048 Lymphocytes/100 WBC (Bld) 15.9 % Low 20.0 - 45.0 [facility] Comment on above: Performed By: #### 2 76132 #### [facility],[address] [place] [address] 12266 MANUAL DIFF N/A Normal [facility] Comment on above: Performed By: #### 2 91892 #### [facility],[address] [place], [place] [id number] MCH (RBC) [Entitic mass] 30 pg Normal 27 - 33 [facility] Comment on above: Performed By: #### 2 45471 #### [facility],[address] [place] [address] MCHC 34 X10 3 Normal 32 - 36 [facility] Comment on above: Performed By: #### 2 01502 #### [facility],[address] [place] [address] 18047 MCV (RBC) [Entitic vol] 91 fL Normal 81 - 98 [facility] Comment on above: Performed By: #### 2 50625 #### [facility],[address] [place] [address] 50383 [place] # 0.60 x10EE3/UL Normal 0.20 - 1.00 [facility] Comment on above: Performed By: #### 2 37609 #### [facility],[address] [place] [address] 22469 MONOS % 10.4 % High 0.0 - 10.0 [facility] Comment on above: Performed By: #### 2 75983 #### [facility],[address] [place] [address] 40582 Morphology Daniel (Bld) [Interp] N/A Normal [facility] Comment on above: Result Comment: {CD] Performed By: #### 2 11333 #### [facility],[address] [place] [address] 25519 Neut # 4.00 x10EE3/UL Normal 1.50 - 7.10 [facility] Comment on above: Performed By: #### 2 45484 #### [facility],[address] [place] [address] 92760 Neutrophils/100 WBC (Bld) 70.7 % Normal 46.0 - 76.0 [facility] Comment on above: Performed By: #### 2 79612 #### [facility],[address] [place], [place] [id number] PLATELET 260 x10EE3/UL Normal 150 - 450 [facility] Comment on above: Performed By: #### 2 32965 #### [facility],[address] [place], [place] [id number] Platelet mean volume (Bld) [Entitic vol] 9.0 fL Normal 6.4 - 10.5 [facility] Comment on above: Result Comment: AUTO MATED DIFFERENTIAL Performed By: #### 2 23251 #### [facility],[address] [place] [address] 49556 RBC 4.66 x 10EE6/UL Normal 4.50 - 6.00 [facility] Comment on above: Performed By: #### 2 99841 #### [facility],[address] [place] [address] 56036 WBC 5.7 x 10EE3/UL Normal 4.5 - 10.8 [facility] Comment on above: Performed By: #### 2 79768 #### [facility],[address] [place] [address] 49487 CMP with eGFRon 11-16-2023 AGE 73 years Normal [facility] Comment on above: Performed By: #### 2 79789 #### [facility],[address] [place] [address] 62054 Albumin [Mass/Vol] 3.7 g/dL Normal 3.4 - 5.0 [facility] Comment on above: Performed By: #### 2 74841 #### [facility],[address] [place] [address] 16967 Albumin/Globulin [Mass ratio] 1.0 {ratio} Normal 0.9 - 1.6 [facility] Comment on above: Performed By: #### 2 43483 #### [facility],[address] [place] [address] 83807 ALK PHOS 93 U/L Normal 46 - 116 [facility] Comment on above: Performed By: #### 2 91681 #### [facility],[address] [place] [address] 18396 ALT [Catalytic activity/Vol] 40 U/L Normal 16 - 63 [facility] Comment on above: Performed By: #### 2 52068 #### [facility],[address] [place] [address] 38784 Anion gap [Moles/Vol] 15 mmol/L Normal 10 - 20 [facility] Comment on above: Performed By: #### 2 33458 #### [facility],[address] [place] [address] 73871 AST [Catalytic activity/Vol] 32 U/L Normal 15 - 37 [facility] Comment on above: Performed By: #### 2 94827 #### [facility],[address] [place] [address] 22447 B/C RATIO 23 ratio Normal 0 - 30 [facility] Comment on above: Performed By: #### 2 60695 #### [facility],[address] [place] [address] 86538 Bilirubin [Mass/Vol] 0.6 mg/dL Normal 0.2 - 1.0 [facility] Comment on above: Performed By: #### 2 72520 #### [facility],[address] [place] [address] 26235 Calcium [Mass/Vol] 9.1 mg/dL Normal 8.5 - 10.1 [facility] Comment on above: Performed By: #### 2 93896 #### [facility],[address] [place] [address] 64461 Chloride [Moles/Vol] 107 mmol/L Normal 98 - 107 [facility] Comment on above: Performed By: #### 2 77414 #### [facility],[address] [place] [address] 52187 CMP with eGFR Normal [facility] Comment on above: Result Comment: COMP REHENSIVE METABOLIC PANEL Performed By: #### 2 06285 #### [facility],[address] [place] [address] 31825 CO2 [Moles/Vol] 26.2 mmol/L Normal 21.0 - 32.0 [facility] Comment on above: Performed By: #### 2 23875 #### [facility],[address] [place] [address] 32304 Creatinine [Mass/Vol] 1.00 mg/dL Normal 0.70 - 1.30 [facility] Comment on above: Performed By: #### 2 83410 #### [facility],[address] [place] [address] 60948 GFR/1.73 sq M.predicted among non-blacks MDRD (S/P/Bld) [Vol rate/Area] mL/min/{1.73_m2} Normal 60 - 999 [facility] Comment on above: Performed By: #### 2 55911 #### [facility],[address] [place] [address] 81301 Result Comment: ACCO RDING TO THE NATIONAL KIDNEY DISEASE EDUCATION PROGRAM(NKDE), A NORMAL eGFR IS A VALUE GREATER THAN OR EQUAL TO 60 ML/MIN/1.73 SQ METERS. CHRONIC KIDNEY DISEASE: <60mL/MIN/1.73 SQ METERS KIDNEY FAILURE: <15mL/MIN/1.73 SQ METERS THIS TEST SHOULD ONLY BE USED FOR PATIENTS 18 YEARS OF AGE AND OLDER. Globulin (S) [Mass/Vol] 3.7 g/dL Normal 1.5 - 3.8 [facility] Comment on above: Performed By: #### 2 58784 #### [facility],[address] [place] [address] 03552 Glucose [Mass/Vol] 137 mg/dL High 74 - 106 [facility] Comment on above: Performed By: #### 2 87839 #### [facility],[address] [place] [address] 52877 Potassium [Moles/Vol] 4.6 mmol/L Normal 3.5 - 5.1 [facility] Comment on above: Performed By: #### 2 88687 #### [facility],[address] [place] [address] 74140 Protein [Mass/Vol] 7.4 g/dL Normal 6.4 - 8.2 [facility] Comment on above: Performed By: #### 2 82150 #### [facility],[address] [place] [address] 73881 Sodium [Moles/Vol] 144 mmol/L Normal 136 - 145 [facility] Comment on above: Performed By: #### 2 31150 #### [facility],[address] [place] [address] 66686 Urea nitrogen [Mass/Vol] 23 mg/dL High 7 - 18 [facility] Comment on above: Performed By: #### 2 72352 #### [facility],[address] [place] [address] 65297 HEMOGLOBIN A1C (POM)on 11-16 Glucose [Mass/Vol] 142.7 mg/dL High 0.0 - 0.0 [facility] Comment on above: Result Comment: BLDo HEMOGLOBIN A1C REFERENCE RANGESBLDo Suggested Diagnosis HbA1c(%) HbA1C (mmol/mol Diabetic >/=6.5 >/=48 Prediabetes 5.7 - 6.4 39 - 47 Normal <5.7 <39 Performed By: #### 2 43127 #### [facility],[address] [place] [address] 12675 HbA1c (Bld) [Mass fraction] 6.6 % High 0.0 - 6.5 [facility] Comment on above: Performed By: #### 2 34286 #### [facility],[address] [place] [address] 69261 LIPID PROFILEon 11-16-2023 Cholesterol [Mass/Vol] 122 mg/dL Normal 0 - 240 [facility] Comment on above: Performed By: #### 2 84245 #### [facility],[address] [place] [address] 09351 Cholesterol in HDL [Mass/Vol] 43 mg/dL Normal 40 - 60 [facility] Comment on above: Performed By: #### 2 22527 #### [facility],[address] [place] [address] 63789 Cholesterol in LDL [Mass/Vol] 68 mg/dL Normal 0 - 129 [facility] Comment on above: Performed By: #### 2 21482 #### [facility],[address] [place] [address] 60365 Cholesterol.total/Choles terol in HDL [Mass ratio] 2.8 {ratio} Normal 0.0 - 5.0 [facility] Comment on above: Performed By: #### 2 07607 #### [facility],[address] [place] [address] 47820 Lipid 1996 panel Normal [facility] Comment on above: Result Comment: LIPI D PROFILE Performed By: #### 2 66012 #### [facility],[address] [place] [address] 08977 Triglyceride [Mass/Vol] 57 mg/dL Normal 0 - 150 [facility] Comment on above: Performed By: #### 2 50807 #### [facility],[address] [place] [address] 36584 CNOVon 11-13-2023 CNOV Office Visit (IMGCMN ) RUSLAN STEPHENS ([id number]) 1950 [facility] Date Time Provider Department 11/13/23 11:30 AM [facility] During your visit today, we recorded the following information about you: Pulse Blood pressure Weight 64/minute 146/79 108.3 kg Emeli Hollins MD 11/13/2023 12:59 PM Signed Geriatric Medicine Follow up Today's Visit: is noticing some changes that make her concerned. He is misplacing things often. He is putting things in random places. During conversations he will start talking about something unrelated and it is very off topic. He is having more trouble with words. He is still working and taking night shifts when available because of financial restraints. Lexapro has helped but he still gets irritable and starts using foul language when something does not go his way. Functional Evaluation: B-ADLs: (I=independent,A=viraj tance,D=dependent) ?Bathing: I , Dressing: I , Toileting: I , Transferring: I , Continence: I , Feeding: I , I-ADLs: Transportation: I, Medications: I , Handle Finances: I Review of systems: Weight change: no change Appetite: no change Change in memory problems from previous visit: yes Change in mood from previous visit: no Constipation, Diarrhea: no Incontinence: no Chest pain, PND, orthopnea: no Edema: no Dyspnea: no Falls/injuries/acciden ts since last visit: no The remainder of the ROS as above rest was negative. Patient's allergies, medications, and Past, Family and Social history have been reviewed with the patient, and updated as appropriate. Please see relevant sections in [facility] EHR for details Current Medications (identify differences from home medications) Current Outpatient Medications Medication Sig metoprolol succinate ER (TOPROL XL) 25 mg 24 hr tablet Take by mouth. Benzonatate 200 mg capsule Take 200 mg by mouth three times a day as needed. azithromycin (ZITHROMAX) 250 mg tablet TAKE ONE TABLET BY MOUTH EVERY DAY FOR FOUR DAYS. Start ON DAY TWO of therapy. atorvastatin (LIPITOR) 80 mg tablet Take by mouth. losartan (COZAAR) 50 mg tablet Take by mouth. losartan (COZAAR) 50 mg tablet Take 50 mg by mouth once daily. BIOTIN ORAL Take by mouth once daily. calcium/mag/vitamin D2/Zn/min (MERYL-MAG ZINC II ORAL) Take by mouth once daily. mv-min/vit C/glut/lysine/hb124 (IMMUNE SUPPORT ORAL) Take by mouth once daily. pregabalin (LYRICA) 25 mg capsule once daily. metoprolol succinate ER (TOPROL XL) 25 mg 24 hr tablet TAKE 1 TABLET BY MOUTH EVERY DAY atorvastatin (LIPITOR) 80 mg tablet TAKE 1 TABLET BY MOUTH EVERY DAY clopidogrel (PLAVIX) 75 mg tablet Take 1 tablet by mouth once daily. escitalopram oxalate (LEXAPRO) 20 mg tablet Take 1 tablet by mouth once daily. omeprazole (PRILOSEC) 40 mg capsule Take 1 capsule by mouth once daily. nitroglycerin sublingual (NITROQUICK) 0.4 mg SL tablet Nitroglycerin Active 0.4 MG SL every 5 to 15 minutes November 21, 2017 5:49pm cyclobenzaprine (FLEXERIL) 5 mg tablet Take 5 mg by mouth twice daily as needed. clindamycin (CLEOCIN) 300 mg capsule aspirin, enteric coated (ASPIRIN, ENTERIC COATED) 81 mg EC tablet Take 1 tablet by mouth once daily. indomethacin (INDOCIN) 50 mg capsule TAKE 1 CAPSULE BY MOUTH TWICE A DAY NEEDED losartan-hydroCHLOROth iazide (HYZAAR) 50-12.5 mg per tablet Take by mouth. tamsulosin (FLOMAX) 0.4 mg Take 0.4 mg by mouth once daily. Digestive Enzymes cap Take by mouth. secretin, Human, (CHIROSTIM) 16 mcg solr For MRI PANCREAS FUNCTION WO/W IVCON. Inject 0.2 mcg/kg/dose intravenously as directed. Slow push at the appropriate time during MRI (Patient not taking: Reported on 10/31/2022) No current facility-administered medications for this visit. Diagnostics: Glucose (mg/dL) Date Value 12/15/2021 108 Potassium (mmol/L) Date Value 12/15/2021 4.4 Sodium (mmol/L) Date Value 12/15/2021 141 Chloride (mmol/L) Date Value 12/15/2021 102 CO2 (mmol/L) Date Value 12/15/2021 26 Creatinine (mg/dL) Date Value 12/15/2021 0.99 BUN (mg/dL) Date Value 12/15/2021 16 Anion Gap (mmol/L) Date Value 12/15/2021 13 Calcium, Total (mg/dL) Date Value 12/15/2021 9.3 Protein, Total (g/dL) Date Value 12/15/2021 7.3 Albumin (g/dL) Date Value 12/15/2021 4.6 Bilirubin, Total (mg/dL) Date Value 12/15/2021 0.3 Alkaline Phosphatase (U/L) Date Value 12/15/2021 75 AST (U/L) Date Value 12/15/2021 39 ALT (U/L) Date Value 12/15/2021 38 CBC: Hemoglobin (g/dL) Date Value 12/15/2021 14.2 Hematocrit (%) Date Value 12/15/2021 44.1 WBC (k/uL) Date Value 12/15/2021 6.23 Platelet Count (k/uL) Date Value 12/15/2021 311 TSH (mIU/L) Date Value 12/15/2021 1.560 Physical Exam BP 146/79 (BP Site: Right Arm, BP Position: Sitting, BP Cuff Size: Regular Adult) Pulse 64 Wt 108.3 kg (238 lb 12.1 oz) BMI 3 (more content not included)... Normal [facility] Absolute lymphocyte countOrd ered By: Jeaneth Guillaume on 10-20-2023 Lymphocytes Auto (Unsp spec) [#/Vol] 1.16 10*3/uL 0.83-4.51 [facility] Basophil percentageOrdered B y: Jeaneth Guillaume on 10-20-2023 Basophils/100 WBC (Bld) 0.6 % 0-1 [facility] Chloride [Moles/Vol] 108 mmol/L 98-107 [facility] Eosinophils/100 WBC (Bld) 1.5 % 0-5 [facility] Glucose [Mass/Vol] 164 mg/dL 74-106 [facility] Comment on above: Fasting Glucose resu lt greater than or equal to 126 mg/dL suggests DIABETES MELLITUS per A.D.A. criteria. Neutrophils (Bld) [#/Vol] 6.1 10*3/uL 2.0-7.7 [facility] [facility] Neutrophils/100 WBC (Bld) 74.4 % 47-70 [facility] Potassium [Moles/Vol] 4.0 mmol/L 3.5-5.1 [facility] Sodium [Moles/Vol] 139 mmol/L 136-145 [facility] WBC (Bld) [#/Vol] 8.3 10*3/uL 4.4-11.0 [facility] Blood erythrocytes count (nu mber/volume)Ordered By: Jeaneth Guillaume on 10-20-2023 RBC (Bld) [#/Vol] 4.64 10*6/uL 4.6-6.2 [facility] Blood hemoglobin measurement (mass/volume)Ordered By: Jeaneth Guillaume on 10-20-2023 Hemoglobin (Bld) [Mass/Vol] 13.7 g/dL 13.0-16.5 [facility] Blood lymphocytes/100 leukoc ytesOrdered By: Jeaneth Guillaume on 10-20-2023 Lymphocytes/100 WBC (Bld) 14.0 % 19-41 [facility] Blood monocytes/100 leukocyt esOrdered By: Jeaneth Guillaume on 10-20-2023 Monocytes/100 WBC (Bld) 9.3 % 0-10 [facility] Blood platelet mean volumeOr dered By: Jeaneth Guillaume on 10-20-2023 Platelet mean volume (Bld) [Entitic vol] 10.0 fL 6.2-12.0 [facility] Determination of erythrocyte mean corpuscular volume (MCV)Ordered By: Jeaneth Guillaume on 10-20-2023 MCV (RBC) [Entitic vol] 90.9 fL 80-94 [facility] Hematocrit Auto (Bld) [Volum e fraction]Ordered By: Jeaneth Guillaume on 10-20-2023 Hematocrit (Bld) [Volume fraction] 42.2 % 40-54 [facility] Laboratory - Chemistry and C hemistry - challengeOrdered By: Jeaneth Guillaume on 10-20-2023 CO2 [Moles/Vol] 25.0 mmol/L 21.0-32.0 [facility] Urea nitrogen/Creatinine [Mass ratio] 13.4 mg/mg 10-20 [facility] - Hematology and Cell countsOrdered By: Jeaneth Guillaume on 10-20-2023 Erythrocyte distribution width (RBC) [Entitic vol] 42.6 fL 35.1-43.9 [facility] Erythrocyte distribution width (RBC) [Ratio] 13.0 % 11.6-14.6 [facility] Immature granulocytes/100 WBC (Bld) 0.200 % 0.0-0.9 [facility] Comment on above: IG% - Immature Granu locytes (promyelocytes, myelocytes and metamyelocytes) > 1% indicates that a LEFT SHIFT is Present. MCH (RBC) [Entitic mass] 29.5 pg 27.0-32.0 [facility] Nucleated RBC/100 WBC (Bld) [Ratio] 0 % 0-5 [facility] - Microbiology an d Antimicrobial susceptibilityOrdered By: Jeaneth Guillaume on 10-20-2023 SARS-CoV-2 (COVID-19) RNA ARACELI+probe Ql (Unsp spec) [facility] MCHC Auto (RBC) [Mass/Vol]Or dered By: Jeaneth Guillaume on 10-20-2023 MCHC (RBC) [Mass/Vol] 32.5 g/dL 32-36 [facility] No Panel InformationOrdered By: Jeaneth Guillaume on 10-20-2023 Estimated Creatinine Clearance Calc 61.52 ml/min [facility] Estimated GFR (MDRD) Amer 78 mL/min >60 [facility] Comment on above: GFR Calc Estimated GFR (MDRD) Non-Af Amer 64 mL/min >60 [facility] Comment on above: Non- GFR Calc Platelets bldOrdered By: Farida Guillaume on 10-20-2023 Platelets (Bld) [#/Vol] 272 10*3/uL 150-450 [facility] Serum or plasma calcium caitlin urement (mass/volume)Ordered By: Jeaneth Guillaume on 10-20-2023 Calcium [Mass/Vol] 9.0 mg/dL 8.5-10.1 [facility] Serum or plasma creatinine m easurement (mass/volume)Ordered By: Jeaneth Guillaume on 10-20-2023 Creatinine [Mass/Vol] 1.19 mg/dL 0.70-1.30 [facility] Comment on above: The validity of the calculated GFR & GFRAA in patients over 70 years has not been determined. Clinical correlation is essential. Serum or plasma urea nitroge n measurement (mass/volume)Ordered By: Jeaneth Guillaume on 10-20-2023 Urea nitrogen [Mass/Vol] 16 mg/dL 7-18 [facility] Thin prep Papanicolaou smear with manual screeningOrdered By: Jeaneth Guillaume on 10-20-2023 Thin prep Papanicolaou smear with manual screening 6 5-15 [facility] No Panel Informationon 11-08 [facility] CNOVon 06-06-2022 CN Office Visit (FAMMAS ) RUSLAN STEPHENS ([id number]) 1950 M [facility] Date Time Provider Department 06/06/22 10:00 AM ULICES TAVERAS During your visit today, we recorded the following information about you: Temperature Pulse Respiration Blood pressure 97.1 degrees 56/minute 14/minute 148/80 Weight Height 104 kg 1.803 m Ulices Taveras MD 06/06/2022 11:18 AM Signed This note was created using NoteWriter. Subjective Ruslan Stephens is a 71 year old male. Review of Systems Constitutional: Negative. HENT: Negative. Eyes: Negative. Respiratory: Negative. Cardiovascular: Negative. Gastrointestinal: Negative. Endocrine: Negative. Genitourinary: Negative. Musculoskeletal: Negative. Skin: Negative. Allergic/Immunologic: Negative. Neurological: Negative. Hematological: Negative. Psychiatric/Behavioral : Negative. Objective BP 148/80 (BP Site: Right Arm, BP Cuff Size: Large Adult) Pulse (!) 56 Temp 36.2 ?C (97.1 ?F) (Temporal) Resp 14 Ht 180.3 cm (5' 11) Wt 104 kg (229 lb 3.2 oz) SpO2 96% BMI 31.97 kg/m? Physical Exam Vitals reviewed. Constitutional: Appearance: Normal appearance. HENT: Head: Normocephalic and atraumatic. Nose: Nose normal. Eyes: Extraocular Movements: Extraocular movements intact. Pupils: Pupils are equal, round, and reactive to light. Cardiovascular: Rate and Rhythm: Normal rate and regular rhythm. Pulmonary: Effort: Pulmonary effort is normal. Breath sounds: Normal breath sounds. Abdominal: General: Bowel sounds are normal. Palpations: Abdomen is soft. Musculoskeletal: General: Normal range of motion. Cervical back: Normal range of motion and neck supple. Skin: General: Skin is warm and dry. Capillary Refill: Capillary refill takes less than 2 seconds. Neurological: General: No focal deficit present. Mental Status: He is alert and oriented to person, place, and time. Mental status is at baseline. Psychiatric: Mood and Affect: Mood normal. Behavior: Behavior normal. Assessment and Plan Ulices Taveras MD 06/06/2022 11:18 AM Signed This note was created using Gliph. Subjective Ruslan Stephens is a 71 year old male. He presents today for preop clearance for back surgery. He is having a laminectomy done. Review of Systems Constitutional: Negative. HENT: Negative. Eyes: Negative. Respiratory: Negative. Cardiovascular: Negative. Gastrointestinal: Negative. Endocrine: Negative. Genitourinary: Negative. Musculoskeletal: Negative. Skin: Negative. Allergic/Immunologic: Negative. Neurological: Negative. Hematological: Negative. Psychiatric/Behavioral : Negative. Objective BP 148/80 (BP Site: Right Arm, BP Cuff Size: Large Adult) Pulse (!) 56 Temp 36.2 ?C (97.1 ?F) (Temporal) Resp 14 Ht 180.3 cm (5' 11) Wt 104 kg (229 lb 3.2 oz) SpO2 96% BMI 31.97 kg/m? Physical Exam Vitals reviewed. Constitutional: Appearance: Normal appearance. HENT: Head: Normocephalic and atraumatic. Nose: Nose normal. Eyes: Extraocular Movements: Extraocular movements intact. Pupils: Pupils are equal, round, and reactive to light. Cardiovascular: Rate and Rhythm: Normal rate and regular rhythm. Pulmonary: Effort: Pulmonary effort is normal. Breath sounds: Normal breath sounds. Abdominal: General: Bowel sounds are normal. Palpations: Abdomen is soft. Musculoskeletal: General: Normal range of motion. Cervical back: Normal range of motion and neck supple. Skin: General: Skin is warm and dry. Capillary Refill: Capillary refill takes less than 2 seconds. Neurological: General: No focal deficit present. Mental Status: He is alert and oriented to person, place, and time. Mental status is at baseline. Psychiatric: Mood and Affect: Mood normal. Behavior: Behavior normal. Assessment and Plan Ruslan was seen today for pre-op exam. Diagnoses and all orders for this visit: Preoperative clearance Patient has had no prior difficulties with anesthesia. He is medically maximized for surgery. Additionally has received cardiac clearance. He is cleared for procedure. Referring Provider: SELF [200] Allergies As of Date: 06/06/2022 (No Known Allergies) Date Reviewed: 06/06/2022 Reviewed by: Kaila Gary LPN - Fully Assessed Reason for Visit: Pre-Op Exam [87] Cmt: Surgical clearance for laminectomy and fusion on 06/16/22 Primary Visit Diagnosis:Preoperative clearance [Z01.818] Prescriptions as of 06/06/2022 - metoprolol succinate ER (TOPROL XL) 25 mg 24 hr tablet TAKE 1 TABLET BY MOUTH EVERY DAY - atorvastatin (LIPITOR) 80 mg tablet TAKE 1 TABLET BY MOUTH EVERY DAY - clopidogrel (PLAVIX) 75 mg tablet Take 1 tablet by mouth once daily. - escitalopram oxalate (LEXAPRO) 20 mg tablet Take 1 tablet by mouth once daily. - omeprazole (PRILOSEC) 40 mg capsule (more content not included)... Normal [facility] CNOVon 05-09-2022 [facility] Office Visit (FAMAZS ) RUSLAN STEPHENS ([id number]) 1950 M [facility] Date Time Provider Department 05/09/22 11:10 AM ULICES TAVERAS During your visit today, we recorded the following information about you: Temperature Pulse Respiration Blood pressure 98 degrees 64/minute 18/minute 134/74 Weight Height 105.5 kg 1.765 m Ulices Taveras MD 05/09/2022 1:59 PM Signed This note was created using [employer]. Subjective Ruslan Stephens is a 71 year old male who presents today for follow-up for multiple medical problems. See list. His chronic medical problems are stable. His blood pressure is good controlled on his current regimen. He is tolerating this well. He is wearing a heart monitor due to a couple of lightheaded episodes at work. This is being done by cardiology. His A1c is increased to 6.7. Review of Systems Constitutional: Negative. HENT: Negative. Eyes: Negative. Respiratory: Negative. Cardiovascular: Negative. Gastrointestinal: Negative. Endocrine: Negative. Genitourinary: Negative. Musculoskeletal: Negative. Skin: Negative. Allergic/Immunologic: Negative. Neurological: Negative. Hematological: Negative. Psychiatric/Behavioral : Negative. Objective BP 134/74 (BP Site: Left Arm, BP Position: Sitting) Pulse 64 Temp 36.7 ?C (98 ?F) Resp 18 Ht 176.5 cm (5' 9.5) Wt 105.5 kg (232 lb 9.6 oz) SpO2 95% BMI 33.86 kg/m? Physical Exam Vitals reviewed. Constitutional: Appearance: Normal appearance. HENT: Head: Normocephalic and atraumatic. Nose: Nose normal. Eyes: Extraocular Movements: Extraocular movements intact. Pupils: Pupils are equal, round, and reactive to light. Cardiovascular: Rate and Rhythm: Normal rate and regular rhythm. Pulmonary: Effort: Pulmonary effort is normal. Breath sounds: Normal breath sounds. Abdominal: General: Bowel sounds are normal. Palpations: Abdomen is soft. Musculoskeletal: General: Normal range of motion. Cervical back: Normal range of motion and neck supple. Skin: General: Skin is warm and dry. Capillary Refill: Capillary refill takes less than 2 seconds. Neurological: General: No focal deficit present. Mental Status: He is alert and oriented to person, place, and time. Mental status is at baseline. Psychiatric: Mood and Affect: Mood normal. Behavior: Behavior normal. Assessment and Plan Ruslan was seen today for follow up. Diagnoses and all orders for this visit: Primary hypertension Mixed hyperlipidemia Ischemic heart disease Hx of myocardial infarction Diabetes mellitus type II (HCC) Idiopathic gout, unspecified chronicity, unspecified site Major depressive disorder with single episode, in remission (HCC) Anxiety Other orders - nitroglycerin sublingual (NITROQUICK) 0.4 mg SL tablet; Nitroglycerin Active 0.4 MG SL every 5 to 15 minutes November 21, 2017 5:49pm Improved diabetic diet. Increase exercise. Reduce weight. Reduce stress. Recheck A1c in 3 months. Referring Provider: SELF [200] Allergies As of Date: 05/09/2022 (No Known Allergies) Date Reviewed: 05/09/2022 Reviewed by: Peri Zhu LPN - Fully Assessed Reason for Visit: Follow Up [171] Cmt: cardiac, tunnel vision Primary Visit Diagnosis:Primary hypertension [I10] Other Visit Diagnoses:Mixed hyperlipidemia [E78.2] Ischemic heart disease [I25.9] Hx of myocardial infarction [I25.2] Diabetes mellitus type II (HCC) [E11.9] Idiopathic gout, unspecified chronicity, unspecified site [M10.00] Anxiety [F41.9] Order(s):nitroglycerin sublingual (NITROQUICK) 0.4 mg SL tabletNitroglycerin Active 0.4 MG SL every 5 to 15 minutes November 21, 2017 5:49pmDisp: 1 Bottle of 25Rfl: 3 Prescriptions as of 05/09/2022 - nitroglycerin sublingual (NITROQUICK) 0.4 mg SL tablet Nitroglycerin Active 0.4 MG SL every 5 to 15 minutes November 21, 2017 5:49pm - cyclobenzaprine (FLEXERIL) 5 mg tablet Take 5 mg by mouth twice daily as needed. - clindamycin (CLEOCIN) 300 mg capsule PLEASE SEE ATTACHED FOR DETAILED DIRECTIONS - aspirin, enteric coated (ASPIRIN, ENTERIC COATED) 81 mg EC tablet Take 1 tablet by mouth once daily. - omeprazole (PRILOSEC) 40 mg capsule Take 1 capsule by mouth once daily. - atorvastatin (LIPITOR) 80 mg tablet Take by mouth. - clopidogrel (PLAVIX) 75 mg tablet - escitalopram oxalate (LEXAPRO) 20 mg tablet Take 20 mg by mouth. - indomethacin (INDOCIN) 50 mg capsule TAKE 1 CAPSULE BY MOUTH TWICE A DAY NEEDED - losartan-hydroCHLOROth iazide (HYZAAR) 50-12.5 mg per tablet Take by mouth. - metoprolol succinate ER (TOPROL XL) 25 mg 24 hr tablet Take by mouth. - omeprazole (PRILOSEC) 40 mg capsule Take 40 mg by mouth once daily. - tamsulosin (FLOMAX) 0.4 mg Take 0.4 mg by mouth once daily. - Digestive Enzymes cap Take by mouth. - secretin, Human, (CHIROSTIM) 16 mcg solr (more content not included)... [facility] 04-28-[address] [facility] Telephone (FAMPLA) RUSLAN STEPHENS ([id number]) 1950 [facility] Date Time Provider Department 04/28/22 ULICES TAVERAS During your visit today, we recorded the following information about you: Tequila Rodriguez LPN 04/28/2022 3:35 PM Signed Pt called in asking to be referred to pain management. Allergies As of Date: 04/28/2022 (No Known Allergies) Date Reviewed: 04/25/2022 Reviewed by: Kaila Gary LPN - Fully Assessed Reason for Visit: Orders [681] Cmt: pain management referral Primary Visit Diagnosis:Bilateral low back pain with sciatica, sciatica laterality unspecified, unspecified chronicity [M54.40] Order(s):CONSULT TO [facility] ([facility]IN) [[id number]] Order #: [id number]: 1 Prescriptions as of 04/28/2022 - cyclobenzaprine (FLEXERIL) 5 mg tablet Take 5 mg by mouth twice daily as needed. - predniSONE (DELTASONE) 20 mg tablet Take 2 tablets by mouth once daily for 7 days. - clindamycin (CLEOCIN) 300 mg capsule PLEASE SEE ATTACHED FOR DETAILED DIRECTIONS - aspirin, enteric coated (ASPIRIN, ENTERIC COATED) 81 mg EC tablet Take 1 tablet by mouth once daily. - omeprazole (PRILOSEC) 40 mg capsule Take 1 capsule by mouth once daily. - atorvastatin (LIPITOR) 80 mg tablet Take by mouth. - clopidogrel (PLAVIX) 75 mg tablet - escitalopram oxalate (LEXAPRO) 20 mg tablet Take 20 mg by mouth. - indomethacin (INDOCIN) 50 mg capsule TAKE 1 CAPSULE BY MOUTH TWICE A DAY NEEDED - losartan-hydroCHLOROth iazide (HYZAAR) 50-12.5 mg per tablet Take by mouth. - metoprolol succinate ER (TOPROL XL) 25 mg 24 hr tablet Take by mouth. - nitroglycerin sublingual (NITROQUICK) 0.4 mg SL tablet Nitroglycerin Active 0.4 MG SL every 5 to 15 minutes November 21, 2017 5:49pm - omeprazole (PRILOSEC) 40 mg capsule Take 40 mg by mouth once daily. - tamsulosin (FLOMAX) 0.4 mg Take 0.4 mg by mouth once daily. - Digestive Enzymes cap Take by mouth. - secretin, Human, (Owlet Baby Care) 16 mcg solr For MRI PANCREAS FUNCTION WO/W IVCON. Inject 0.2 mcg/kg/dose intravenously as directed. Slow push at the appropriate time during MRI Problem List As Of Date 04/28/2022 Noted Resolved Anxiety [F41.9] 07/01/2019 Bilateral impacted cerumen [H61.23] 02/01/2019 Depression [F32.A] 09/26/2017 Diabetes mellitus type II (HCC) [E11.9] 09/26/2017 Dizziness [R42] 02/01/2019 Colon cancer screening [Z12.11] 05/06/2019 Encounter for other preprocedural examination [*02/27/2018 Encounter for long-term (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 of insuli*04/19/2012 Encounter for screening for malignant neoplasm *11/04/2019 Erectile dysfunction [N52.9] 05/06/2019 Eustachian tube dysfunction [H69.80] 02/01/2019 Gout [M10.9] 09/26/2017 History of peptic ulcer disease [Z87.11] 09/26/2017 Hx of myocardial infarction [I25.2] 09/09/2006 Hypercholesterolemia [E78.00] 09/26/2017 Ischemic heart disease [I25.9] 09/26/2017 Hypertension [I10] 09/26/2017 Polyarthritis [M13.0] 11/05/2018 Sepsis (HCC) [A41.9] 09/26/2019 Urinary frequency [R35.0] 09/26/2017 Urinary tract infection [N39.0] 09/26/2019 Encounter Status:Closed by ULICES TAVERAS on 04/28/22 [facility] 04-25-2022 [facility] Office Visit (LIZETTES ) RUSLAN STEPHENS ([id number]) 1950 [facility] Date Time Provider Department 04/25/22 4:40 PM ULICES TAVERAS During your visit today, we recorded the following information about you: Temperature Pulse Respiration Blood pressure 97.7 degrees 77/minute 14/minute 138/82 Weight Height 103.5 kg 1.791 m Kaila Gary LPN 04/25/2022 5:00 PM Signed Pt had went to [facility] and had an xray that didn't show anything. Pt was prescriped medrol pk onThursday prescribed flexaril 5 mg tab Pt still has complaints of 5/10 pain Ulices Taveras MD 04/25/2022 6:00 PM Signed This note was created using NoteWriter. Subjective Ruslan Stephens is a 71 year old male. HPI Patient presents today for follow-up from the emergency room for severe low back and right hip pain radiating to his foot. He was treated with a Medrol Dosepak which he is still taking. His gave him some of her pain pills as well. He is also using Voltaren gel. Symptoms are improving somewhat today. Review of Systems Constitutional: Negative. HENT: Negative. Eyes: Negative. Respiratory: Negative. Cardiovascular: Negative. Gastrointestinal: Negative. Endocrine: Negative. Genitourinary: Negative. Musculoskeletal: Positive for back pain. Skin: Negative. Allergic/Immunologic: Negative. Neurological: Negative. Hematological: Negative. Psychiatric/Behavioral : Negative. Objective BP 138/82 (BP Site: Right Arm, BP Cuff Size: Large Adult) Pulse 77 Temp 36.5 ?C (97.7 ?F) (Temporal) Resp 14 Ht 179.1 cm (5' 10.5) Wt 103.5 kg (228 lb 3.2 oz) SpO2 95% BMI 32.28 kg/m? Physical Exam Musculoskeletal: General: Tenderness present. Lumbar back: Tenderness present. Decreased range of motion. Positive right straight leg raise test. Assessment and Plan Ruslan was seen today for acute visit. Diagnoses and all orders for this visit: Acute midline low back pain with right-sided sciatica - CONSULT TO PHYSICAL THERAPY; Future Other orders - predniSONE (DELTASONE) 20 mg tablet; Take 2 tablets by mouth once daily for 7 days. Moist heat. Stretching exercises. Referring Provider: SELF [200] Allergies As of Date: 04/25/2022 (No Known Allergies) Date Reviewed: 04/25/2022 Reviewed by: Kaila Gary LPN - Fully Assessed Reason for Visit: Acute Visit [896] Cmt: hip pain-RT since Monday denies injury Primary Visit Diagnosis:Acute midline low back pain with right-sided sciatica [M54.41] Order(s):predniSONE (DELTASONE) 20 mg tabletTake 2 tablets by mouth once daily for 7 days.Disp: 14 tabletRfl: 0 CONSULT TO PHYSICAL THERAPY [9657] Order #: [id number]: 1 FUTURE Prescriptions as of 04/25/2022 - cyclobenzaprine (FLEXERIL) 5 mg tablet Take 5 mg by mouth twice daily as needed. - predniSONE (DELTASONE) 20 mg tablet Take 2 tablets by mouth once daily for 7 days. - clindamycin (CLEOCIN) 300 mg capsule PLEASE SEE ATTACHED FOR DETAILED DIRECTIONS - aspirin, enteric coated (ASPIRIN, ENTERIC COATED) 81 mg EC tablet Take 1 tablet by mouth once daily. - omeprazole (PRILOSEC) 40 mg capsule Take 1 capsule by mouth once daily. - atorvastatin (LIPITOR) 80 mg tablet Take by mouth. - clopidogrel (PLAVIX) 75 mg tablet - escitalopram oxalate (LEXAPRO) 20 mg tablet Take 20 mg by mouth. - indomethacin (INDOCIN) 50 mg capsule TAKE 1 CAPSULE BY MOUTH TWICE A DAY NEEDED - losartan-hydroCHLOROth iazide (HYZAAR) 50-12.5 mg per tablet Take by mouth. - metoprolol succinate ER (TOPROL XL) 25 mg 24 hr tablet Take by mouth. - nitroglycerin sublingual (NITROQUICK) 0.4 mg SL tablet Nitroglycerin Active 0.4 MG SL every 5 to 15 minutes November 21, 2017 5:49pm - omeprazole (PRILOSEC) 40 mg capsule Take 40 mg by mouth once daily. - tamsulosin (FLOMAX) 0.4 mg Take 0.4 mg by mouth once daily. - Digestive Enzymes cap Take by mouth. - secretin, Human, (Owlet Baby Care) 16 mcg solr For MRI PANCREAS FUNCTION WO/W IVCON. Inject 0.2 mcg/kg/dose intravenously as directed. Slow push at the appropriate time during MRI Problem List As Of Date 04/25/2022 Noted Resolved Anxiety [F41.9] 07/01/2019 Bilateral impacted cerumen [H61.23] 02/01/2019 Depression [F32.A] 09/26/2017 Diabetes mellitus type II (HCC) [E11.9] 09/26/2017 Dizziness [R42] 02/01/2019 Colon cancer screening [Z12.11] 05/06/2019 Encounter for other preprocedural examination [*02/27/2018 Encounter for long-term (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 of insuli*04/19/2012 Encounter for screening for malignant neoplasm *11/04/2019 Erectile dysfunction [N52.9] 05/06/2019 Eustachian tube dysfunction [H69.80] 02/01/2019 Gout [M10.9] 09/26/2017 History of peptic ulcer disease [Z87.11] 09/26/2017 Hx of myocardial infarction [I25.2] 09/09/2006 Hypercholesterolemia [E78.00] 09/26/2017 Ischemic heart disease [I25.9] 09/26/2017 Hypertension [I10] 09/26/20 (more content not included)... Normal [facility] CR Hip w/ Pelvis 2 or 3 View s Righton 04-23-2022 CR Hip w/ Pelvis 2 or 3 Views Right Patient [facility]: [id number] ACCESSION EXAM DATE/TIME PROCEDURE ORDERING PROVIDER [id number] 04/23/2022 13:11 EDT CR Hip w/ Pelvis 2 or 3 [id number] -DONTAEPEDRO LUIS Views Right n CPT code 16669 Reason For Exam (CR Hip w/ Pelvis 2 or 3 Views Right n) R hip pain Report RIGHT HIP CLINICAL INDICATION: Right hip pain A single AP view of the pelvis followed by AP and lateral views of the right hip were obtained. COMPARISON: None FINDINGS: No fracture or dislocation of the pelvis or right hip is identified. Mild loss of joint space and acetabular spurring is noted within the left and right hip joints. The sacroiliac joints appear grossly unremarkable. No lytic or blastic bony lesions are seen. IMPRESSION: No fracture or dislocation of the pelvis or right hip is identified. Mild osteoarthritis of the bilateral hips. Report Dictated on Final Dictated: 04/23/2022 1:25 pm Dictating Physician: MD JAFFE JONATHAN R Signed Date and Time: 04/23/2022 1:25 pm Signed by: MD JAFFE JONATHAN R Transcribed Date and Time: 04/23/2022 1:25 Normal [facility] ED Provider Noteon ED Provider Note Emergency Department Encounter [facility] EMERGENCY DEPT Patient: Ruslan Stephens : 1950 Date of Evaluation: 04/23/2022 ED Supervising Physician: Alek Negron MD I independently examined and evaluated Ruslan Stephens. In brief, Ruslan Stephens is a 71 y.o. male that presents to the emergency department right hip pain no trauma no fever or immunosuppression or IV drug use Focused exam: Vitals are stable. He can range his right hip without difficulty. Brief ED course/MDM: Patient present with right hip pain. No trauma. Vitals are stable. No immunosuppression or IV drug use and he can range his hip without any pain. When he bears weight on it he does have some pain but he can bear weight on it. Given no trauma low suspicion for occult fracture. He does have history of arthritis in that hip per [facility] plan to discharge with anti-inflammatories and close follow-up if x-ray is normal All diagnostic, treatment, and disposition decisions were made by myself in conjunction with the [facility]. For all further details of the patient's emergency department visit, please see their documentation. (Please note that portions of this note may have been completed with a voice recognition program. Efforts were made to edit the dictations but occasionally words are mis-transcribed.) Alek Negron MD Acute Care [facility] Alek Negron MD 04/23/22 13[address] [facility] ED Provider Note [facility] EMERGENCY DEPT EMERGENCY DEPARTMENT ENCOUNTER Pt Name: Ruslan Stephens Birthdate 1950 Date of evaluation: 04/23/2022 Provider: Pedro Luis Diggs MD CHIEF COMPLAINT Chief Complaint Patient presents with ? Hip Pain Right hip pain, reports he was at [facility] and had an xray a few days ago which showed nothing was wrong and was given medication for arthritis which isn't helping pain HISTORY OF PRESENT ILLNESS (Location/Symptom, Timing/Onset, Context/Setting, Quality, Duration, Modifying Factors, Severity) Note limiting factors. I wore a kn95 mask for the entirety of this encounter. HPI Ruslan Stephens is a 71 y.o. male who presents to the emergency department right hip pain. Patient reports that he follows with [facility] has been diagnosed with osteoarthritis after receiving a hip x-ray at that facility. He was given prednisone and was scheduled for follow-up appointment. Patient reports that the hip pain has been persistent, contacted [facility] back and recommended coming to the emergency department further evaluation. Denies any recent trauma or injury to the area. He reports that he experiences intermittent shooting pain from the right side of his hip down the lateral aspect. Denies numbness, or heaviness. States the pain is exacerbated with bending and weightbearing. Nursing Notes were reviewed. REVIEW OF SYSTEMS (2+ for level 4; 10+ for level 5) Review of Systems Constitutional: Negative for chills and fever. HENT: Negative for sore throat. Eyes: Negative for visual disturbance. Respiratory: Negative for shortness of breath. Gastrointestinal: Negative for abdominal pain, diarrhea, nausea and vomiting. Genitourinary: Negative for dysuria. Musculoskeletal: Right hip pain Skin: Negative for rash. Neurological: Negative for dizziness, light-headedness and headaches. Psychiatric/Behavioral : Negative for self-injury. PAST MEDICAL HISTORY History reviewed. No pertinent past medical history. SURGICAL HISTORY History reviewed. No pertinent surgical history. CURRENT MEDICATIONS Previous Medications No medications on file ALLERGIES Patient has no known allergies. FAMILY HISTORY History reviewed. No pertinent family history. SOCIAL HISTORY Social History Socioeconomic History ? Marital status: Spouse name: None ? Number of children: None ? Years of education: None ? Highest education level: None Occupational History ? None Tobacco Use ? Smoking status: Never Smoker ? Smokeless tobacco: Never Used Substance and Sexual Activity ? Alcohol use: Never ? Drug use: Never ? Sexual activity: None Other Topics Concern ? None Social History Narrative ? None Social Determinants of Health Financial Resource Strain: ? Difficulty of Paying Living Expenses: Not on file Food Insecurity: ? Worried About Running Out of Food in the Last Year: Not on file ? Ran Out of Food in the Last Year: Not on file Transportation Needs: ? Lack of Transportation (Medical): Not on file ? Lack of Transportation (Non-Medical): Not on file Physical Activity: ? Days of Exercise per Week: Not on file ? Minutes of Exercise per Session: Not on file Stress: ? Feeling of Stress : Not on file Social Connections: ? Frequency of Communication with Friends and Family: Not on file ? Frequency of Social Gatherings with Friends and Family: Not on file ? Attends Christian Services: Not on file ? Active Member of Clubs or Organizations: Not on file ? Attends Club or Organization Meetings: Not on file ? Marital Status: Not on file Intimate Partner Violence: ? Fear of Current or Ex-Partner: Not on file ? Emotionally Abused: Not on file ? Physically Abused: Not on file ? Sexually Abused: Not on file Housing Stability: ? Unable to Pay for Housing in the Last Year: Not on file ? Number of Places Lived in the Last Year: Not on file ? Unstable Housing in the Last Year: Not on file SCREENINGS [place] Coma Scale Eye Opening: Spontaneous Best Verbal Response: Oriented Best Motor Response: Obeys commands Darvin Coma Scale Score: 15 PHYSICAL EXAM (up to 7 for level 4, 8 or more for level 5) ED Triage Vitals BP Temp Temp Source Heart Rate Resp SpO2 Height Weight 04/23/22 1114 04/23/22 1114 04/23/22 1114 04/23/22 1114 04/23/22 1114 04/23/22 1114 -- 04/23/22 1114 (!) 159/83 97.6 ?F (36.4 ?C) Temporal (!) 39 20 97 % 230 lb (104.3 kg) Physical Exam Constitutional: General: He is not in acute distress. Appearance: Normal appearance. He is not ill-appearing. HENT: Head: Normocephalic and atraumatic. Nose: Nose normal. Mouth/Throat: Mouth: Mucous membranes are moist. Eyes: Extraocular Movements: Extraocular movements intact. Conjunctiva/sclera: Conjunctivae normal. Pupils: Pupils are equal, round, and reactive to light. Cardiovascular: Rate and Rhythm: Normal rate and regular rhyth (more content not included)... [facility] ([facility]-3 VIE[facility])on 0 04-23-2022 Patient Name: RUSLAN WOODS Diagnostic Radiology ACCESSION EXAM DATE/TIME PROCEDURE ORDERING PROVIDER [id number] 04/23/2022 13:11 EDT CR Hip w/ Pelvis 2 or 3 [id number] -PEDRO LUIS DIGGS Views Right n CPT code 95840 Reason For Exam (CR Hip w/ Pelvis 2 or 3 Views Right n) R hip pain Report RIGHT HIP CLINICAL INDICATION: Right hip pain A single AP view of the pelvis followed by AP and lateral views of the right hip were obtained. COMPARISON: None FINDINGS: No fracture or dislocation of the pelvis or right hip is identified. Mild loss of joint space and acetabular spurring is noted within the left and right hip joints. The sacroiliac joints appear grossly unremarkable. No lytic or blastic bony lesions are seen. IMPRESSION: No fracture or dislocation of the pelvis or right hip is identified. Mild osteoarthritis of the bilateral hips. Report Dictated on --- Final --- Dictated: 04/23/2022 1:25 pm Dictating Physician: MD JAFFE JONATHAN R Signed Date and Time: 04/23/2022 1:25 pm Signed by: MD JAFFE JONATHAN R Transcribed Date and Time: 04/23/2022 1:25 [facility] Bjorn Jaffe MD - 04/23/2022 Patient Name: RUSLAN STEPHENS Diagnostic Radiology ACCESSION EXAM DATE/TIME PROCEDURE ORDERING PROVIDER [id number] 04/23/2022 13:11 EDT CR Hip w/ Pelvis 2 or 3 [id number] -DONTAE, PEDRO LUIS Views Right n CPT code 42599 Reason For Exam (CR Hip w/ Pelvis 2 or 3 Views Right n) R hip pain Report RIGHT HIP CLINICAL INDICATION: Right hip pain A single AP view of the pelvis followed by AP and lateral views of the right hip were obtained. COMPARISON: None FINDINGS: No fracture or dislocation of the pelvis or right hip is identified. Mild loss of joint space and acetabular spurring is noted within the left and right hip joints. The sacroiliac joints appear grossly unremarkable. No lytic or blastic bony lesions are seen. IMPRESSION: No fracture or dislocation of the pelvis or right hip is identified. Mild osteoarthritis of the bilateral hips. Report Dictated on --- Final --- Dictated: 04/23/2022 1:25 pm Dictating Physician: MD JAFFE JONATHAN R Signed Date and Time: 04/23/2022 1:25 pm Signed by: MD JAFFE JONATHAN R Transcribed Date and Time: 04/23/2022 1:25 [facility] Work Phone: Radiology Study observation (narrative) [facility] Work Phone: XR HIP RIGHT (2-3 VIEWS)Orde red By: Bjorn Jaffe on 04-23-2022 [facility] Work Phone: No Panel Informationon 04-04 Endomysial IgA Antibody Negative Negative [facility] Work Phone: Serum IgA measurement (units /volume)on 04-04-2022 IgA Qn (S) 182 mg/dL 61-437 [facility] Work Phone: Comment on above: Performed at: [place] [id number] Director: Tian Goodson PhD, Phone: [phone] Serum or plasma C reactive p rotein measurement (mass/volume)on 04-04-2022 CRP [Mass/Vol] mg/L 0.0-3.0 [facility] Work Phone: Comment on above: C-Reactive Protein ( CRP) provides useful information for thediagnosis, therapy and monitoring of inflammatory processesand associated diseases. For the evaluation of Relative Riskfor Cardiovascular Disease, a High Sensitivity CRP (HSCRP)should be ordered. Serum tissue transglutaminas e IgA antibody assay (units/volume)on 04-04-2022 tTG IgA Qn (S) <2 U/mL 0-3 [facility] Work Phone: Comment on above: Negative 0 - 3 Weak Positive 4 - 10 Positive >10 Tissue Transglutaminase (tTG) has been identified as the endomysial antigen. Studies have demonstr- ated that endomysial IgA antibodies have over 99% specificity for gluten sensitive enteropathy. MRI PANCREAS FUNCTION WO/W I VCONon 02-09-2022 [facility] Hemoglobin A1con 10-19-2021 Glucose [Mass/Vol] 148 mg/dL Normal [facility] Comment on above: Performed By: #### H BA1C #### [facility] Routine Lab [address] [place] [address] HbA1c (Bld) [Mass fraction] 6.8 % High 4.3-5.6 [facility] Comment on above: Performed By: #### H BA1C #### [facility] Routine Lab [address] [place] [address] Hemoglobin A1con 11-27-2020 Glucose [Mass/Vol] 143 mg/dL Normal [facility] Comment on above: Performed By: #### H BA1C #### [facility] Routine Lab [address] [place], [place] [address] HbA1c (Bld) [Mass fraction] 6.6 % High 4.3-5.6 [facility] Comment on above: Performed By: #### H BA1C #### [facility] Routine Lab [address] [place], [place] [address] Lab Report: Basic Metabolic Profile (BMP)on 11-22-2017 Anion gap 9 mmol/L Invalid Interpretation Code 5-15 [facility] Work Phone: [phone] BUN/Creatinine Ratio 28.0 RATIO High 10-[address] [facility] [address] [facility] Work Phone: [phone] Calcium 8.7 mg/dL Invalid Interpretation Code 8.5-10.1 [facility] Work Phone: [phone] Chloride 104 mmol/L Invalid Interpretation Code 98-107 [facility] Work Phone: [phone] CO2 26.0 mmol/L Invalid Interpretation Code 21.0-32.0 [facility] Work Phone: [phone] Creatinine 0.93 mg/dL Invalid Interpretation Code 0.70-1.30 [facility] Work Phone: [phone] eGFR (non-black) 105 mL/min/{1.73_m2} Invalid Interpretation Code >60 [facility] Work Phone: [phone] eGFR (non-black) 87 mL/min/{1.73_m2} Invalid Interpretation Code >60 [facility] Work Phone: [phone] Glucose 96 mg/dL Invalid Interpretation Code 74-106 [facility] Work Phone: [phone] Potassium 3.7 mmol/L Invalid Interpretation Code 3.5-5.1 [facility] Work Phone: [phone] Sodium 139 mmol/L Invalid Interpretation Code 136-145 [facility] Work Phone: [phone] Urea nitrogen 26 mg/dL High 7-18 [facility] Work Phone: [phone] Lab Report: CBC-Complete Blo od Cnt No Diffon 11-22-2017 Erythrocytes (RBC) 4.76 10*6/uL Invalid Interpretation Code 4.6-6.2 [facility] Work Phone: [phone] Hematocrit (HCT) 43.4 % Invalid Interpretation Code 40-54 [facility] Work Phone: [phone] Hemoglobin (HGB) 14.4 g/dL Invalid Interpretation Code 13.0-16.5 [facility] Work Phone: [phone] MCH 30.3 pg Invalid Interpretation Code 27.0-32.0 [facility] Work Phone: [phone] MCHC 33.2 G/GL Invalid Interpretation Code 32-36 [facility] Work Phone: [phone] MCV 91.2 fL Invalid Interpretation Code 80-94 [facility] Work Phone: [phone] Platelets 318 10*3/mm3 Invalid Interpretation Code 150-450 [facility] Work Phone: [phone] PMV by Marvin 10.0 fL Invalid Interpretation Code 6.2-12.0 [facility] Work Phone: [phone] RDW-CA 14.0 % Invalid Interpretation Code 11.6-14.6 [facility] Work Phone: [phone] red blood cell distribution width, size density 46.1 fL High 35.1-43.9 [facility] Work Phone: [phone] WBC (Leukocytes) 6.9 10*3/uL Invalid Interpretation Code 4.4-11.0 [facility] Work Phone: [phone] Lab Report: Prothrombin Time w/INRon 11-22-2017 Coagulation tissue factor induced in platelet poor plasma 13.7 s Invalid Interpretation Code 11.7-14.9 [facility] Work Phone: [phone] INR in blood by coagulation 1.1 {INR} Invalid Interpretation Code [facility] Phone: [phone] Office Visiton 08-02-2017 Dietary management education, guidance, and counseling (procedure) yes Invalid Interpretation Code [facility] Work Phone: [phone] Documentation of current medications (procedure) Done Invalid Interpretation Code [facility] Phone: [phone] Replaced Document: [employer] E CG Observationson 08-02-2017 EKG QRS axis 40 deg Invalid Interpretation Code [facility] Work Phone: [phone] electrocardiogram interpretation Sinus Rhythm WITHIN NORMAL LIMITS Invalid Interpretation Code [facility] Work Phone: [phone] GE use only - for [employer] import when terms are not otherwise specified 385 ms Invalid Interpretation Code [facility] Work Phone: [phone] Interpretation Sinus Rhythm WITHIN NORMAL LIMITS Invalid Interpretation Code [facility] Phone: [phone] P [place] 58 deg Invalid Interpretation Code [facility] Work Phone: [phone] P wave axis, electrocardiogram 58 deg Invalid Interpretation Code [facility] Work Phone: [phone] FL Interval 182 ms Invalid Interpretation Code [facility] Work Phone: [phone] FL interval, electrocardiogram 182 ms Invalid Interpretation Code [facility] Work Phone: [phone] Pulse (Heart Rate) 79 /min Invalid Interpretation Code [facility] Phone: [phone] QRS axis, electrocardiogram 40 deg Invalid Interpretation Code [facility] Phone: [phone] QRS Duration 85 ms Invalid Interpretation Code [facility] Work Phone: [phone] QRS duration, electrocardiogram 85 ms Invalid Interpretation Code [facility] Phone: [phone] QT Interval new path ms Invalid Interpretation Code [facility] Phone: [phone] QT interval, electrocardiogram new path ms Invalid Interpretation Code [facility] Phone: [phone] QTc Herbert 385 ms Invalid Interpretation Code [facility] Phone: [phone] T [place] 28 deg Invalid Interpretation Code [facility] Work Phone: [phone] T wave axis, electrocardiogram 28 deg Invalid Interpretation Code [facility] Phone: [phone] Clinical Lists Update: 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 Hemoglobin A1c/Hemoglobin.total mass fraction (Bld) 6.1 % Invalid Interpretation Code [facility] Work Phone: [phone] Alanine aminotransferase (ALT) 37 U/L Invalid Interpretation Code [facility] Work Phone: [phone] Albumin 4.3 g/dL Invalid Interpretation Code [facility] Work Phone: [phone] Alkaline phosphatase (ALP) 54 U/L Invalid Interpretation Code [facility] Work Phone: [phone] Aspartate aminotransferase (AST) 25 U/L Invalid Interpretation Code [facility] Work Phone: [phone] Bilirubin (total) 0.5 mg/dL Invalid Interpretation Code [facility] Work Phone: [phone] BUN/Creatinine Ratio 18 mg/mg Invalid Interpretation Code [facility] Work Phone: [phone] Calcium 9.1 mg/dL Invalid Interpretation Code [facility] Work Phone: [phone] Chloride 107 mmol/L Invalid Interpretation Code [facility] Work Phone: [phone] Cholesterol 152 mg/dL Invalid Interpretation Code [facility] Work Phone: [phone] Cholesterol to HDL Ratio 4.2 {ratio} Invalid Interpretation Code [facility] Work Phone: [phone] CO2 31.0 mmol/L High [facility] Work Phone: [phone] Creatinine 1.0 mg/dL Invalid Interpretation Code [facility] Work Phone: [phone] Globulin 2.4 g/dL Invalid Interpretation Code [facility] Work Phone: [phone] Glucose mass conc 116 mg/dL High [facility] Work Phone: [phone] HDL Cholesterol 36 mg/dL Low [facility] Work Phone: [phone] LDL Cholesterol 95 mg/dL Invalid Interpretation Code [facility] Work Phone: [phone] Potassium molar conc 3.7 mmol/L Invalid Interpretation Code [facility] Work Phone: [phone] Protein 6.7 g/dL Invalid Interpretation Code [facility] Work Phone: [phone] Sodium 141 mmol/L Invalid Interpretation Code [facility] Work Phone: [phone] Triglyceride 104 mg/dL Invalid Interpretation Code [facility] Work Phone: [phone] Urea nitrogen 18 mg/dL Invalid Interpretation Code [facility] Work Phone: [phone] Erythrocyte distribution width Auto Ratio (RBC) 14.2 % Invalid Interpretation Code [facility] Work Phone: [phone] Erythrocytes (RBC) 4.81 10*6/uL Invalid Interpretation Code [facility] Work Phone: [phone] Hematocrit (HCT) 43.2 % Invalid Interpretation Code [facility] Work Phone: [phone] Hemoglobin mass conc (Bld) 14.5 g/dL Invalid Interpretation Code [facility] Work Phone: [phone] MCH 30 pg Invalid Interpretation Code [facility] Work Phone: [phone] MCHC mass conc (RBC) 34 g/dL Invalid Interpretation Code [facility] Work Phone: [phone] MCV 90 fL Invalid Interpretation Code [facility] Work Phone: [phone] Platelets 248 10*3/mm3 Invalid Interpretation Code [facility] Work Phone: [phone] PMV by Marvin 8.5 fL Invalid Interpretation Code [facility] Work Phone: [phone] WBC (Leukocytes) 7.0 10*3/uL Invalid Interpretation Code [facility] Work Phone: [phone] Office Visit: [facility] 04-23-20 13 Documentation of current medications (procedure) Done Invalid Interpretation Code [facility] Work Phone: [phone] Replaced Document: [employer] E CG Observationson 04-23-2013 Pulse (Heart Rate) 397 ms Invalid Interpretation Code [facility] Phone: [phone] Lab Reporton 03-04-2013 Albumin/Globulin Ratio 2.0 {ratio} Invalid Interpretation Code [facility] Phone: [phone] Office Visiton 10-23-2012 Tobacco smoking status NHIS Tobacco smoking status NHIS Invalid Interpretation Code [facility] Work Phone: [phone] Tobacco use CPHS never smoker Invalid Interpretation Code [facility] Work Phone: [phone] Office Visiton 08-31-2011 cardiac risk group C Invalid Interpretation Code [facility] Phone: [phone] cholesterol, target level 200 mg/dL Invalid Interpretation Code [facility] Work Phone: [phone] General cardiovascular disease 10Y risk [#] [place] N/A Invalid Interpretation Code [facility] Work Phone: [phone] HDL cholesterol, serum, target level 40 mg/dL Invalid Interpretation Code [facility] Work Phone: [phone] LDL target level 100 mg/dL Invalid Interpretation Code [facility] Work Phone: [phone] triglyceride, target level 150 mg/dL Invalid Interpretation Code [facility] Work Phone: [phone] Vital Signs Date Time Vital Sign Value Performing Clinician Lori burciaga 05-19-2025 12:01-0400 Body temperature 98.1 [degF] Dr. Kem Davila MD Work Phone: [facility] 05-19-2025 12:01-0400 Diastolic blood pressure 79 mm[Hg] Dr. Kem Davila MD Work Phone: [facility] 05-19-2025 12:01-0400 Heart rate 81 /min Dr. Kem Davila MD Work Phone: [facility] 05-19-2025 12:01-0400 Respiratory rate 16 /min Dr. Kem Davila MD Work Phone: [facility] 05-19-2025 12:01-0400 SaO2% (BldA) [Mass fraction] 100 % Dr. Kem Davila MD Work Phone: [facility] 05-19-2025 12:01-0400 Systolic blood pressure 176 mm[Hg] Dr. Kem Davila MD Work Phone: [facility] 05-19-2025 08:55-0400 Body height 177.[address] Kem Davila MD Work Phone: [facility] 05-19-2025 08:55-0400 Body mass index (BMI) [Ratio] 75.6 kg/m2 Dr. Kem Davila MD Work Phone: [facility] 05-19-2025 08:55-0400 Body weight 239.[address] Kem Davila MD Work Phone: [facility] 05-12-2025 15:03-0400 Body height 180.[address] Kem Davila MD Work Phone: [facility] 05-12-2025 15:03-0400 Body mass index (BMI) [Ratio] 33.7 kg/m2 Dr. Kem Davila MD Work Phone: [facility] 05-12-2025 15:03-0400 Body weight 109.[address] Kem Davila MD Work Phone: [facility] 05-12-2025 15:03-0400 Diastolic blood pressure 75 mm[Hg] Dr. Kem Davila MD Work Phone: [facility] 05-12-2025 15:03-0400 Heart rate 67 /min Dr. Kem Davila MD Work Phone: [facility] 05-12-2025 15:03-0400 Respiratory rate 16 /min Dr. Kem Davila MD Work Phone: [facility] 05-12-2025 15:03-0400 SaO2% (BldA) [Mass fraction] 93 % Dr. Kem Davila MD Work Phone: [facility] 05-12-2025 15:03-0400 Systolic blood pressure 136 mm[Hg] Dr. Kem Davila MD Work Phone: [facility] 05-13-2024 11:46-0400 Body mass index (BMI) [Ratio] 32.72 kg/m2 Emeli Hollins MD Work Phone: [facility] 05-13-2024 11:46-0400 Body weight 106.4 kg Emeli Hollins MD Work Phone: [facility] 05-13-2024 11:46-0400 Diastolic blood pressure 86 mm[Hg] Emeli Hollins MD Work Phone: [facility] 05-13-2024 11:46-0400 Heart rate 56 /min Emeli Hollins MD Work Phone: [facility] 05-13-2024 11:46-0400 Systolic blood pressure 145 mm[Hg] Emeli Hollins MD Work Phone: [facility] 10-20-2023 14:11-0500 Diastolic blood pressure 69 mm[Hg] Dr. Kem Davila Work Phone: [facility] 10-20-2023 14:11-0500 Systolic blood pressure 125 mm[Hg] Dr. Kem Davila Work Phone: [facility] 10-20-2023 13:15-0500 Heart rate 92 /min Dr. Kem Davila Work Phone: [facility] 10-20-2023 13:15-0500 Respiratory rate 18 /min Dr. Kem Davila Work Phone: [facility] 10-20-2023 12:12-0500 Body height 180.[address] Kem Davila Work Phone: [facility] 10-20-2023 12:12-0500 Body mass index (BMI) [Ratio] 34.1 kg/m2 Dr. Kem Davila Work Phone: [facility] 10-20-2023 12:12-0500 Body temperature 99.8 [degF] Dr. Kem Davila Work Phone: [facility] 10-20-2023 12:12-0500 Body weight 110.[address] Kem Davila Work Phone: [facility] 10-20-2023 12:12-0500 SaO2% (BldA) [Mass fraction] 100 % Dr. Kem Davila Work Phone: [facility] 04-03-2023 10:57-0400 Body weight 107.68 kg Emeli Hollins MD Work Phone: [facility] 04-03-2023 10:57-0400 Diastolic blood pressure 76 mm[Hg] Emeli Hollins MD Work Phone: [facility] 04-03-2023 10:57-0400 Heart rate 81 /min Emeli Hollins MD Work Phone: [facility] 04-03-2023 10:57-0400 Systolic blood pressure 122 mm[Hg] Emeli Hollins MD Work Phone: [facility] 12-09-2022 08:54-0500 Body height 180.3 cm Jay Miranda MD Work Phone: [facility] 12-09-2022 08:54-0500 Body temperature 97.11 [degF] Jay Miranda MD Work Phone: [facility] 12-09-2022 08:54-0500 Body weight 106.59 kg Jay Miranda MD Work Phone: [facility] 12-09-2022 08:54-0500 Diastolic blood pressure 67 mm[Hg] Jay Miranda MD Work Phone: [facility] 12-09-2022 08:54-0500 Heart rate 68 /min Jay Miranda MD Work Phone: [facility] 12-09-2022 08:54-0500 Respiratory rate 14 /min Jay Miranda MD Work Phone: [facility] 12-09-2022 08:54-0500 SaO2% (BldA) [Mass fraction] 100 % Jay Miranda MD Work Phone: [facility] 12-09-2022 08:54-0500 Systolic blood pressure 136 mm[Hg] Jay Miranda MD Work Phone: [facility] 10-31-2022 09:50-0500 Body temperature 97.5 [degF] Emeli Hollins MD Work Phone: [facility] 10-31-2022 09:50-0500 Body weight 104.83 kg Emeli Hollins MD Work Phone: [facility] 10-31-2022 09:50-0500 Diastolic blood pressure 81 mm[Hg] Emeli Hollins MD Work Phone: [facility] 10-31-2022 09:50-0500 Heart rate 62 /min Emeli Hollins MD Work Phone: [facility] 10-31-2022 09:50-0500 Respiratory rate 18 /min Emeli Hollins MD Work Phone: [facility] 10-31-2022 09:50-0500 SaO2% (BldA) [Mass fraction] 100 % Emeli Hollins MD Work Phone: [facility] 10-31-2022 09:50-0500 Systolic blood pressure 135 mm[Hg] Emeli Hollins MD Work Phone: [facility] 07-20-2022 10:31-0400 Body height 180.3 cm Azam Oconnell MD Work Phone: [facility] 07-20-2022 10:31-0400 Body temperature 96.3 [degF] Azam Oconnell MD Work Phone: [facility] 07-20-2022 10:31-0400 Body weight 101.7 kg Azam Oconnell MD Work Phone: [facility] 07-20-2022 10:31-0400 Diastolic blood pressure 83 mm[Hg] Azam Oconnell MD Work Phone: [facility] 07-20-2022 10:31-0400 Heart rate 62 /min Azam Oconnell MD Work Phone: [facility] 07-20-2022 10:31-0400 SaO2% (BldA) [Mass fraction] 96 % Azam Oconnell MD Work Phone: [facility] 07-20-2022 10:31-0400 Systolic blood pressure 135 mm[Hg] Azam Oconnell MD Work Phone: [facility] 06-21-2022 14:12-0400 Diastolic blood pressure 60 mm[Hg] [facility] Work Phone: 06-21-2022 14:12-0400 Heart rate 75 /min [facility] Work Phone: 06-21-2022 14:12-0400 Respiratory rate 18 /min [facility] Work Phone: 06-21-2022 14:12-0400 SaO2% (BldA) [Mass fraction] 97 % [facility] Work Phone: 06-21-2022 14:12-0400 Systolic blood pressure 130 mm[Hg] [facility] Work Phone: 06-21-2022 13:13-0400 Body temperature 99.1 [degF] [facility] Work Phone: 06-21-2022 12:37-0400 Body height 180.34 cm [facility] Work Phone: 06-21-2022 12:37-0400 Body mass index (BMI) [Ratio] 32.1 kg/m2 [facility] Work Phone: 06-21-2022 12:37-0400 Body weight 104.32 kg [facility] Work Phone: 06-06-2022 10:10-0400 Body height 180.3 cm Ulices Taveras MD Work Phone: [facility] 06-06-2022 10:10-0400 Body temperature 97.11 [degF] Ulices Taveras MD Work Phone: [facility] 06-06-2022 10:10-0400 Body weight 103.96 kg Ulices Taveras MD Work Phone: [facility] 06-06-2022 10:10-0400 Diastolic blood pressure 80 mm[Hg] Ulices Taveras MD Work Phone: [facility] 06-06-2022 10:10-0400 Heart rate 56 /min Ulices Taveras MD Work Phone: [facility] 06-06-2022 10:10-0400 Respiratory rate 14 /min Ulices Taveras MD Work Phone: [facility] 06-06-2022 10:10-0400 SaO2% (BldA) [Mass fraction] 96 % Ulices Taveras MD Work Phone: [facility] 06-06-2022 10:10-0400 Systolic blood pressure 148 mm[Hg] Ulices Taveras MD Work Phone: [facility] 05-12-2022 11:36-0400 Diastolic blood pressure 75 mm[Hg] [facility] Work Phone: 05-12-2022 11:36-0400 Heart rate 80 /min [facility] Work Phone: 05-12-2022 11:36-0400 Systolic blood pressure 122 mm[Hg] [facility] Work Phone: 05-12-2022 11:32-0400 Body height 180.34 cm [facility] Work Phone: 05-12-2022 11:32-0400 Body mass index (BMI) [Ratio] 31.8 kg/m2 [facility] Work Phone: 05-12-2022 11:32-0400 Body weight 103.41 kg [facility] Work Phone: 05-12-2022 11:32-0400 Respiratory rate 16 /min [facility] Work Phone: 05-12-2022 11:32-0400 SaO2% (BldA) [Mass fraction] 96 % [facility] Work Phone: 07-25-2022 11:37-0400 Body height 176.5 cm Ulices Taveras MD Work Phone: [facility] 05-09-2022 11:37-0400 Body temperature 98.01 [degF] Ulices Taveras MD Work Phone: [facility] 05-09-2022 11:37-0400 Body weight 105.51 kg Ulices Taveras MD Work Phone: [facility] 05-09-2022 11:37-0400 Diastolic blood pressure 74 mm[Hg] Ulices Taveras MD Work Phone: [facility] 05-09-2022 11:37-0400 Heart rate 64 /min Ulices Taveras MD Work Phone: [facility] 05-09-2022 11:37-0400 Respiratory rate 18 /min Ulices Taveras MD Work Phone: [facility] 05-09-2022 11:37-0400 SaO2% (BldA) [Mass fraction] 95 % Ulices Taveras MD Work Phone: [facility] 05-09-2022 11:37-0400 Systolic blood pressure 134 mm[Hg] Ulices Taveras MD Work Phone: [facility] 04-25-2022 16:40-0400 Body height 179.1 cm Ulices Taveras MD Work Phone: [facility] 04-25-2022 16:40-0400 Body temperature 97.7 [degF] Ulices Taveras MD Work Phone: [facility] 04-25-2022 16:40-0400 Body weight 103.51 kg Ulices Taveras MD Work Phone: [facility] 04-25-2022 16:40-0400 Diastolic blood pressure 82 mm[Hg] Ulices Taveras MD Work Phone: [facility] 04-25-2022 16:40-0400 Heart rate 77 /min Ulices Taveras MD Work Phone: [facility] 04-25-2022 16:40-0400 Respiratory rate 14 /min Ulices Taveras MD Work Phone: [facility] 04-25-2022 16:40-0400 SaO2% (BldA) [Mass fraction] 95 % Ulices Taveras MD Work Phone: [facility] 04-25-2022 16:40-0400 Systolic blood pressure 138 mm[Hg] Ulices Taveras MD Work Phone: [facility] 04-23-2022 13:50-0400 Diastolic blood pressure 72 mm[Hg] Alek Negron MD Work Phone: [facility] 04-23-2022 13:50-0400 Heart rate 56 /min Alek Negron MD Work Phone: [facility] 04-23-2022 13:50-0400 Respiratory rate 16 /min Alek Negron MD Work Phone: [facility] 04-23-2022 13:50-0400 SaO2% (BldA) [Mass fraction] 96 % Alek Negron MD Work Phone: [facility] 04-23-2022 13:50-0400 Systolic blood pressure 125 mm[Hg] Alek Negron MD Work Phone: [facility] 04-23-2022 11:14-0400 Body temperature 97.59 [degF] Alek Negron MD Work Phone: [facility] 04-23-2022 11:14-0400 Body weight 104.33 kg Alek Negron MD Work Phone: [facility] 02-09-2022 12:31-0400 Diastolic blood pressure 87 mm[Hg] Mri (I-Stat/1.5t/3t) Work Phone: [facility] 02-09-2022 12:31-0400 Heart rate 78 /min Mri (I-Stat/1.5t/3t) Work Phone: [facility] 02-09-2022 12:31-0400 SaO2% (BldA) [Mass fraction] 98 % Mri (I-Stat/1.5t/3t) Work Phone: [facility] 02-09-2022 12:31-0400 Systolic blood pressure 131 mm[Hg] Mri (I-Stat/1.5t/3t) Work Phone: [facility] 02-09-2022 09:47-0400 Respiratory rate 16 /min Mri (I-Stat/1.5t/3t) Work Phone: [facility] 12-19-2021 05:10-0500 Diastolic blood pressure 72 mm[Hg] [facility] Work Phone: 12-19-2021 05:10-0500 Heart rate 64 /min [facility] Work Phone: 12-19-2021 05:10-0500 Respiratory rate 15 /min [facility] Work Phone: 12-19-2021 05:10-0500 SaO2% (BldA) [Mass fraction] 91 % [facility] Work Phone: 12-19-2021 05:10-0500 Systolic blood pressure 124 mm[Hg] [facility] Work Phone: 12-19-2021 04:10-0500 Diastolic blood pressure 72 mm[Hg] [facility] Work Phone: 12-19-2021 04:10-0500 Heart rate 64 /min [facility] Work Phone: 12-19-2021 04:10-0500 Respiratory rate 15 /min [facility] Work Phone: 12-19-2021 04:10-0500 SaO2% (BldA) [Mass fraction] 91 % [facility] Work Phone: 12-19-2021 04:10-0500 Systolic blood pressure 124 mm[Hg] [facility] Work Phone: 12-19-2021 02:25-0500 Body height 180.34 cm [facility] Work Phone: 12-19-2021 02:25-0500 Body mass index (BMI) [Ratio] 32.1 kg/m2 [facility] Work Phone: 12-19-2021 02:25-0500 Body temperature 98.1 [degF] [facility] Work Phone: 12-19-2021 02:25-0500 Body weight 104.32 kg [facility] Work Phone: 12-19-2021 01:25-0500 Body height 180.34 cm [facility] Work Phone: 12-19-2021 01:25-0500 Body mass index (BMI) [Ratio] 32.1 kg/m2 [facility] Work Phone: 12-19-2021 01:25-0500 Body temperature 98.1 [degF] [facility] Work Phone: 12-19-2021 01:25-0500 Body weight 104.32 kg [facility] Work Phone: 10-25-2021 09:17-0500 Body weight 103.87 kg [facility] Work Phone: 10-25-2021 09:17-0500 Diastolic blood pressure 78 mm[Hg] [facility] Work Phone: 10-25-2021 09:17-0500 Heart rate 62 /min [facility] Work Phone: 10-25-2021 09:17-0500 Systolic blood pressure 133 mm[Hg] [facility] Work Phone: 10-22-2020 07:32-0500 Body mass index (BMI) [Ratio] 33.2 kg/m2 [facility] Work Phone: 08-02-2017 14:09-0400 BMI (Body Mass Index) 33.19 kg/m2 [facility] Work Phone: 08-02-2017 14:09-0400 BP Diastolic 82 mm[Hg] [facility] Work Phone: 08-02-2017 14:09-0400 BP Systolic 140 mm[Hg] [facility] Work Phone: 08-02-2017 14:09-0400 Height 180.34 cm [facility] Work Phone: 08-02-2017 14:09-0400 Pulse (Heart Rate) 72 /min [facility] Work Phone: 08-02-2017 14:09-0400 Respiratory Rate 18 /min [facility] Work Phone: 08-02-2017 14:09-0400 Weight 107.96 kg [facility] Work Phone: 04-23-2013 16:10-0400 BMI (Body Mass Index) 32.89 kg/m2 [facility] Work Phone: 04-23-2013 16:10-0400 BP Diastolic 70 mm[Hg] [facility] Work Phone: 04-23-2013 16:10-0400 BP Systolic 100 mm[Hg] [facility] Work Phone: 04-23-2013 16:10-0400 Pulse (Heart Rate) 68 /min [facility] Work Phone: 04-23-2013 16:10-0400 Respiratory Rate 20 /min [facility] Work Phone: 04-23-2013 16:10-0400 Weight 106.6 kg Carrie Josue [facility] Work Phone: 08-31-2011 16:29-0500 Height 180.34 cm Carrie Josue [facility] Work Phone: Encounters Encounter Date Encounter Type Care Provider Facility Start: 05-19-2025 End: 05-19-2025 Emergency department patient visit Dr. Kem Davila MD Work Phone: -Emergency Department Work Phone: Start: 05-12-2025 End: 05-12-2025 Patient encounter procedure Joseph Davi Nikolay JACK SETTER-C -[facility] Work Phone: Start: 05-12-2025 End: 05-12-[address] Kem Davila MD Work Phone: -[facility] Start: 11-25-2024 End: 11-25-2024 ambulatory [place] Davila [place] Start: 06-03-2024 End: 06-03-2024 ambulatory Anna Palomares [place] Start: 05-13-2024 End: 05-14-2024 ambulatory KEM YODERLAY Facility:[facility] Start: 05-13-2024 End: 05-14-2024 Office outpatient visit 25 minutes Emeli Hollins MD Work Phone: Geriatrics Comment on above: Word finding difficu lty (Primary Dx); Gait disturbance; Anxiety Start: 11-16-2023 End: 11-16-2023 ambulatory ULICES NITIN Dmitriy [facility] Start: 11-13-2023 End: 11-14-2023 ambulatory KEM DAVILA Facility:[facility] Start: 10-20-2023 End: 10-20-2023 Emergency department patient visit Dr. Kem Davila Work Phone: [facility]Emer[facility] Work Phone: Start: 08-28-2023 End: 08-28-[address] Kem Davila Work Phone: [facility] Work Phone: Start: 04-03-2023 End: 04-04-2023 Patient encounter procedure Emeli Hollins MD Work Phone: Geriatrics Comment on above: Cognitive impairment , mild, so stated (Primary Dx) Start: 12-09-2022 End: 12-09-2022 Patient encounter procedure Jay Miranda MD Work Phone: [facility] Comment on above: Cerebral infarction, unspecified mechanism (HCC) (Primary Dx); White matter abnormality on MRI of brain Start: 12-08-2022 Patient encounter procedure [facility] Provider [facility] Start: 11-30-2022 Chart abstracting Emeli Hollins MD Work Phone: Neurology Comment on above: Forms Start: 11-11-2022 Telephone encounter Emeli Hollins MD Work Phone: Geriatrics Comment on above: Results Start: 11-08-2022 End: 11-08-2022 Subsequent hospital visit by physician Roxana Francois (I-Stat/3t) Work Phone: Radiology Comment on above: Cognitive impairment , mild, so stated [G31.84] Start: 10-31-2022 End: 10-31-2022 Patient encounter procedure Emeli Hollins MD Work Phone: Geriatrics Comment on above: Cognitive impairment , mild, so stated (Primary Dx); Fall, initial encounter; Gait disturbance; Anxiety; Bilateral hearing loss, unspecified hearing loss type; Impacted cerumen of left ear Start: 10-25-2022 Patient encounter procedure [facility] Start: 08-26-2022 Kena Lopez MD Work Phone: [facility] Comment on above: Opened In Error Start: 08-20-2022 Patient encounter procedure [facility] Provider [facility] Start: 07-20-2022 End: 07-20-2022 Patient encounter procedure Azam Oconnell MD Work Phone: Gastroenterology Comment on above: 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)] (Primary Dx) Start: 07-01-2022 Patient encounter procedure [facility] Provider [facility] Department Start: 06-21-2022 End: 06-21-2022 Emergency department patient visit [facility] Start: 06-06-2022 End: 06-06-2022 Office outpatient visit 25 minutes Ulices Taveras MD Work Phone: [facility] Comment on above: Preoperative clearan ce (Primary Dx) Start: 06-06-2022 End: 06-06-2022 Preoperative state Ulices Taveras MD Work Phone: [facility] Start: 05-30-2022 Non-patient / Non-visit [facility] Start: 05-30-2022 End: 05-30-2022 Patient encounter procedure [facility] Start: 05-25-2022 Patient encounter procedure [facility] Provider [facility] Start: 05-23-2022 Patient encounter procedure [facility] Provider [facility] Start: 05-17-2022 Patient encounter procedure [facility] Provider [facility] Start: 05-12-2022 End: 05-12-2022 Patient encounter procedure [facility] Start: 05-09-2022 End: 05-09-2022 Office outpatient visit 15 minutes Ulices Taveras MD Work Phone: [facility] Comment on above: Primary hypertension (Primary Dx); Mixed hyperlipidemia; Ischemic heart disease; Hx of myocardial infarction; Diabetes mellitus type II (HCC); Idiopathic gout, unspecified chronicity, unspecified site; Anxiety Start: 05-09-2022 End: 05-09-2022 Patient encounter procedure [facility]/Ne[facility]rology Start: 04-28-2022 Telephone encounter Ulices Taveras MD Work Phone: [facility] Comment on above: Orders (pain managem ent referral) Start: 04-25-2022 End: 04-25-2022 Office outpatient visit 15 minutes Ulices Taveras MD Work Phone: [facility] Comment on above: Acute midline low ba ck pain with right-sided sciatica (Primary Dx) Start: 04-23-2022 End: 04-23-2022 Emergency department patient visit Alek Negron MD Work Phone: [facility] Emergency Dept Comment on above: Right hip pain (Prim alexander Dx); Osteoarthritis of both hips, unspecified osteoarthritis type Start: 04-22-2022 Patient encounter procedure [facility] Provider [facility] Start: 04-04-2022 End: 04-04-2022 Patient encounter procedure [facility] Start: 03-07-2022 Patient encounter status [facility] Provider [facility] Start: 02-09-2022 ambulatory Eufemia miramontes Comment on above: Patient Education Start: 02-09-2022 End: 02-09-2022 Subsequent hospital visit by physician Mri 7 [employer] Q (I-Stat/1.5t/3t) Work Phone: MRI Q Comment on above: Exocrine pancreatic insufficiency [K86.81] Start: 01-17-2022 Non-patient / Non-visit [facility] Start: 01-17-2022 End: 01-17-2022 Patient encounter procedure [facility] Start: 12-19-2021 End: 12-19-2021 Emergency department patient visit [facility] Start: 2021 Telephone encounter Tony Oconnell MD Work Phone: Gastroenterology Comment on above: Received Outside Med ical Records Start: 10-25-2021 End: 10-25-2021 Patient encounter procedure [facility] Procedures Date Procedure Procedure Detail Performing Clinician Start: 05-19-2025 Urnls dip stick/tabl et reagent auto microscopy Dr. Kem Davila MD Work Phone: Start: 05-19-2025 X-ray of chest, PA a nd lateral views Dr. Kem Davila MD Work Phone: Start: 05-19-2025 D-dimer assay, quantitative Dr. Kem Davila MD Work Phone: Comment on above: D-Dimer ELEVATED (>0 .49): Additional studies and clinicalassessments are indicated to conclude diagnosis of:Deep Vein Thrombosis (DVT) or Pulmonary Embolism (PE)CRITICAL VALUE CALLED TO FLORI DRAKE (ER)05/19/25 [id number] Zane Davis.RESULTS READ BACK BY SAME. Start: 05-19-[address] Kem Davila MD Work Phone: Start: 11-16-2023 PSA screening ULICES FRANCO Comment on above: Performed By: #### 2 [id number] #### [facility],[address] [place] [address] Start: 10-20-2023 SARS-CoV-2, Influenz a & RSV (PCR) Dr. Kem Davila Work Phone: Start: 10-20-2023 Plain chest X-ray Dr. Annika Davila Work Phone: Start: 11-08-2022 MRI 3D POST PROCESSING Emeli Hollins MD Work Phone: Start: 11-08-2022 Mri brain brain stem w/o contrast material Emeli Hollins MD Work Phone: Start: 04-23-2022 Radex hip unilateral with pelvis 2-3 views Pedro Luis Diggs MD Work Phone: Start: 02-09-2022 Mri abdomen w/o & w/ contrast material Azam Oconnell MD Work Phone: Start: 01-17-2022 Cardiovascular stres s test using pharmacologic stress agent Ulices Taveras Start: 06-24-2019 Colonoscopy Ulices arboleda MD Work Phone: Start: 08-02-2017 End: 08-02-2017 Ecg routine ecg w/least 12 lds w/i&r Baldev Freed MD Start: 08-02-2017 End: 08-02-2017 Follow Up Appt 6 months Prince Laureano Start: 08-02-2017 End: 08-02-2017 IVAN Freed MD Start: 08-02-2017 End: 08-02-2017 Electrocardiogram, complete Baldev Ball i, MD Start: 08-02-2017 End: 08-02-2017 Follow Up Appt 6 months Prince Laureano Start: 08-02-2017 End: 08-02-2017 IVAN Freed MD Start: 08-16-2013 End: 09-03-2013 *Hepatic Function Panel Prisca Lopes PA-C Work Phone: Start: 08-16-2013 End: 09-03-2013 Lipid 1996 panel - Serum or Plasma Prisca Lopes PA-C Work Phone: Start: 08-16-2013 End: 09-03-2013 *Hepatic Function Panel Prisca Lopes PA-C Work Phone: Start: 08-16-2013 End: 09-03-2013 Lipid panel [AGGREGATE] Prisca Lopes PA-C Work Phone: Start: 04-23-2013 End: 08-02-2017 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 Prisca Lopes PA-C Work Phone: Start: 04-23-2013 End: 08-02-2017 Ecg routine ecg w/least 12 lds w/i&r Prisca Lopes PA-C Work Phone: Start: 04-23-2013 End: 08-02-2017 Follow Up Appt 6 months Prisca Lopes PA-C Work Phone: Start: 04-23-2013 End: 08-02-2017 FRUIT DRYER Prisca Lopes PA-C Work Phone: Start: 04-23-2013 End: 08-02-2017 Electrocardiogram, complete Prisca Lopes PA-C Work Phone: Start: 04-23-2013 End: 08-02-2017 Follow Up Appt 6 months Prisca Lopes PA-C Work Phone: Start: 10-23-2012 End: 04-03-2013 Follow Up Appt 6 months Prince Laureano Start: 10-23-2012 End: 04-03-2013 Follow Up Appt 6 months Prince Laureano Start: 10-16-2012 End: 03-04-2013 *Hepatic Function Panel Prince Laureano Start: 10-16-2012 End: 03-04-2013 Lipid 1996 panel - Serum or Plasma Baldev Freed MD Start: 10-16-2012 End: 03-04-2013 *Hepatic Function Panel Prince Laureano Start: 10-16-2012 End: 03-04-2013 Lipid panel [AGGREGATE] Prince Laureano Start: 04-24-2012 End: 04-24-2012 Follow Up Appt 6 months Prince Laureano Start: 04-24-2012 End: 04-24-2012 Follow Up Appt 6 months Prince Laureano Start: 08-31-2011 End: 08-31-2011 Follow Up Appt 6 months Prince Laureano Start: 08-31-2011 End: 08-31-2011 Follow Up Appt 6 months Prince Laureano Start: 09-09-2006 History of placement of stent for coronary artery disease History of coronary artery stent placement Ulices Taveras Comment on above: RTM-PUT-Modq LAD w/ 4.0 x 12 mm Liberte Stent 09/09/2006 Plan of Treatment Date Care Activity Detail Author Start: 11-03-2032 Urine microalbumin profile [facility] Start: 06-24-2029 Colonoscopy COLONOSCOPY [facility] Start: 06-24-2029 COLORECTAL CANCER SCREENING COLORECTAL CANCER SCREENING [facility] Start: 06-24-2029 Screening for malign ant neoplasm of colon [facility] Start: 05-19-2025 [facility] Start: 05-19-2025 [facility] Start: 05-13-2025 Annual PCP Team Relay Motorman jose l Disease Visit Annual PCP Team Chronic Disease Visit [facility] Start: 02-03-2025 End: 02-03-2025 Patient encounter procedure 02/03/2025 11:30 AM EDT Office Visit Geriatrics [id number] [place] [address] Emeli Hollins MD [address] [place] [address] 9 month follow up Geriatrics Comment on above: 9 month follow up Start: 12-15-2024 DIABETES SCREEN DIABETES SCREEN [facility] Start: 06-16-2024 Influenza vaccination Influenza Vacc ine (#1) [facility] Start: 04-03-2024 ANNUAL PCP TEAM COMMERCIAL LOAN COORDINATOR JOSE L DISEASE VISIT ANNUAL PCP TEAM CHRONIC DISEASE VISIT [facility] Start: 04-03-2024 BP CONTROLLED (<130/80) BP CONTROLLE D (<130/80) [facility] Start: 10-31-2023 ANNUAL PCP TEAM COMMERCIAL LOAN COORDINATOR JOSE L DISEASE VISIT ANNUAL PCP TEAM CHRONIC DISEASE VISIT [facility] Start: 10-20-2023 [facility] Start: 10-16-2023 Advance Directive Discussion Advance Directive Discussion [facility] Start: 06-16-2023 Covid-19 Vaccine ( season) Covid-19 Vaccine () [facility] Start: 06-06-2023 ANNUAL PCP TEAM COMMERCIAL LOAN COORDINATOR JOSE L DISEASE VISIT ANNUAL PCP TEAM CHRONIC DISEASE VISIT [facility] Start: 05-09-2023 ANNUAL PCP TEAM COMMERCIAL LOAN COORDINATOR JOSE L DISEASE VISIT ANNUAL PCP TEAM CHRONIC DISEASE VISIT [facility] Start: 04-25-2023 ANNUAL PCP TEAM COMMERCIAL LOAN COORDINATOR JOSE L DISEASE VISIT ANNUAL PCP TEAM CHRONIC DISEASE VISIT [facility] Start: 11-02-2022 Hemoglobin A1c measurement HbA1C [facility] Start: 11-02-2022 Hemoglobin A1c/Hemoglobin.total in Blood HBA1C [facility] Start: 10-16-2022 ADVANCE DIRECTIVE DISCUSSION ADVANCE DIRECTIVE DISCUSSION [facility] Start: 06-16-2022 Influenza vaccination [facility] Start: 10-16-2021 ADVANCE DIRECTIVE DISCUSSION ADVANCE DIRECTIVE DISCUSSION [facility] Start: 06-16-2021 Influenza vaccination INFLUENZA (#1) [facility] Start: 06-15-2021 COVID-19 VACCINE (3 - Booster for Moderna series) COVID-19 VACCINE (3 - Booster for Moderna series) [facility] Start: 03-10-2021 COVID-19 VACCINE (3 - Booster for Moderna series) COVID-19 VACCINE (3 - Booster for Moderna series) [facility] Start: 01-29-2018 End: 01-29-2018 Appointment Appointment [facility] Work Phone: Start: 2017 ADVANCE DIRECTIVE DISCUSSION ADVANCE DIRECTIVE DISCUSSION [facility] Start: 2017 Pneumococcal 65+ yea rs Vaccine (1 - PCV) Pneumococcal 65+ years Vaccine (1 - PCV) [facility] Start: 2017 PNEUMOVAX AGE 65 AND OVER WITH 5YR LOOKBACK (#1) PNEUMOVAX AGE 65 AND OVER WITH 5YR LOOKBACK (#1) [facility] Start: 08-02-2017 End: 08-02-2017 Appointment Appointment [facility] Work Phone: Start: 08-02-2017 End: 08-02-2017 Follow Up Appt 6 months Follow Up Appt 6 months [facility] Work Phone: Start: 08-02-2017 End: 08-02-2017 MMM MMM [facility] Work Phone: Start: 08-02-2017 End: 08-02-2017 Follow Up Appt 6 months Follow Up Appt 6 months [facility] Work Phone: Start: 08-02-2017 End: 08-02-2017 MMM MMM [facility] Work Phone: Start: 09-03-2014 Hepatitis B surface antibody level LDL CHOLESTEROL [facility] Start: 08-16-2014 Hepatitis B surface antibody level LDL Cholesterol [facility] Start: 02-13-2014 End: 09-05-2013 *Hepatic Function Panel *Hepatic Function Panel [facility] Work Phone: Start: 02-13-2014 End: 09-05-2013 Lipid panel [AGGREGATE] *Lipid Profile CC PCP [facility] Work Phone: Start: 02-13-2014 End: 09-05-2013 *Hepatic Function Panel *Hepatic Function Panel [facility] Work Phone: Start: 02-13-2014 End: 09-05-2013 Lipid panel [AGGREGATE] *Lipid Profile CC PCP [facility] Work Phone: Start: 08-16-2013 End: 09-03-2013 *Hepatic Function Panel *Hepatic Function Panel [facility] Work Phone: Start: 08-16-2013 End: 09-03-2013 Lipid panel [AGGREGATE] *Lipid Profile CC PCP [facility] Work Phone: Start: 08-16-2013 End: 09-03-2013 *Hepatic Function Panel *Hepatic Function Panel [facility] Work Phone: Start: 08-16-2013 End: 09-03-2013 Lipid panel [AGGREGATE] *Lipid Profile CC PCP [facility] Work Phone: Start: 04-23-2013 End: 08-02-2017 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 [facility] Work Phone: Start: 04-23-2013 End: 08-02-2017 Ecg routine ecg w/least 12 lds w/i&r EKG (In office) [facility] Work Phone: Start: 04-23-2013 End: 08-02-2017 Follow Up Appt 6 months Follow Up Appt 6 months [facility] Work Phone: Start: 04-23-2013 End: 08-02-2017 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 [facility] Work Phone: Start: 04-23-2013 End: 08-02-2017 Electrocardiogram, complete EKG (In office) [facility] Work Phone: Start: 04-23-2013 End: 08-02-2017 Follow Up Appt 6 months Follow Up Appt 6 months [facility] Work Phone: Start: 2012 RSV Vaccine (1 - 1-d ose 60+ series) RSV Vaccine (1 - 1-dose 60+ series) [facility] Start: 10-23-2012 End: 04-03-2013 Follow Up Appt 6 months Follow Up Appt 6 months [facility] Work Phone: Start: 10-23-2012 End: 04-03-2013 Follow Up Appt 6 months Follow Up Appt 6 months [facility] Work Phone: Start: 10-16-2012 End: 03-04-2013 *Hepatic Function Panel *Hepatic Function Panel [facility] Work Phone: Start: 10-16-2012 End: 03-04-2013 Lipid panel [AGGREGATE] *Lipid Profile [facility] [facility] Work Phone: Start: 10-16-2012 End: 03-04-2013 *Hepatic Function Panel *Hepatic Function Panel [facility] Work Phone: Start: 10-16-2012 End: 03-04-2013 Lipid panel [AGGREGATE] *Lipid Profile [facility] Work Phone: Start: 04-24-2012 End: 04-24-2012 Follow Up Appt 6 months Follow Up Appt 6 months [facility] Work Phone: Start: 04-24-2012 End: 04-24-2012 Follow Up Appt 6 months Follow Up Appt 6 months [facility] Work Phone: Start: 08-31-2011 End: 08-31-2011 Follow Up Appt 6 months Follow Up Appt 6 months [facility] Work Phone: Start: 08-31-2011 End: 08-31-2011 Follow Up Appt 6 months Follow Up Appt 6 months [facility] Work Phone: Start: 2007 PROSTATE CANCER SCREENING DISCUSSION PROSTATE CANCER SCREENING DISCUSSION [facility] Start: 2002 Shingles vaccine (1 of 2) Shingles vaccine (1 of 2) [facility] Start: 2002 SHINGRIX VACCINE (1 of 2) SHINGRIX VACCINE (1 of 2) [facility] Start: 1997 COLOGUARD (FIT-DNA) COLOGUARD (FIT-D NA) [facility] Start: 1997 Colonoscopy COLONOSCOPY [facility] Start: 1997 COLORECTAL CANCER SCREENING COLORECTAL CANCER SCREENING [facility] Start: [address] COLONOGRAPHY [facility] Start: 1997 DIABETES SCREEN DIABETES SCREEN [facility] Start: 1997 FECAL OCCULT BLOOD FECAL OCCULT BLOO D [facility] Start: 1997 Screening for malign ant neoplasm of colon [facility] Start: 1997 SIGMOIDOSCOPY SIGMOIDOSCOPY [facility] Start: 1992 Lipid panel Lipids [facility] Start: 1992 Prostate specific antigen measurement Prostate Specific Antigen (PSA) Screening or Monitoring [facility] Start: 1987 LIPID SCREEN LIPID SCREEN [facility] Start: 1971 DTaP/Tdap/Td vaccine (1 - Tdap) DTaP/Tdap/Td vaccine (1 - Tdap) [facility] Start: 1971 Urine microalbumin profile DTAP,TDAP,TD (1 - Tdap) [facility] Start: 1970 BP CONTROLLED (<130/80) BP CONTROLLE D (<130/80) [facility] Start: 1970 Hepatitis B surface antibody level LDL CHOLESTEROL [facility] Start: 1970 HEPATITIS C SCREENING HEPATITIS C SC BILL [facility] Start: 1970 Hepatitis C screening S [facility] Start: 1964 Adult depression screening assessment DEPRESSION SCREENING [facility] Start: 1964 Depression Screen Depression Screen [facility] Start: 1962 3 comp foot exam completed DIABETIC FOOT EXAM [facility] Start: 1962 Diabetic foot examination Diabetic Foot Exam [facility] Start: 1962 Glaucoma screening Dilated Retinal E xam [facility] Start: 1962 Hepatitis B screening URINE ALBUMIN:CREATININE RATIO [facility] Start: 1962 Hepatitis C antibody , confirmatory test DILATED RETINAL EXAM [facility] Start: 1958 PNEUMOCOCCAL: 65+ (1 - PCV) PNEUMOCOCCAL: 65+ (1 - PCV) [facility] Start: 1957 COVID-19 VACCINE (1) COVID-19 VACCIN E (1) [facility] Start: 1957 Hemoglobin A1c/Hemoglobin.total in Blood HBA1C [facility] End: 11-30-2023 MRI 3D POST PROCESSING MRI 3D POST PROCESSING Radiology Routine Cognitive impairment, mild, so stated 1 Occurrences starting 10/31/2022 until 11/30/2023 [facility] Work Phone: Comment on above: 1 Occurrences starti ng 10/31/2022 until 11/30/2023 End: 01-08-2024 Mri brain brain stem w/o contrast material MRI BRAIN WO IVCON Radiology Routine Cerebral infarction, unspecified mechanism (HCC) 1 Occurrences starting 12/09/2022 until 01/08/2024 [facility] Work Phone: Comment on above: 1 Occurrences starti ng 12/09/2022 until 01/08/2024 End: 11-30-2023 MRI BRAIN W QUANT WO IVCON MRI BRAIN W QUANT WO IVCON Radiology Routine Cognitive impairment, mild, so stated 1 Occurrences starting 10/31/2022 until 11/30/2023 [facility] Work Phone: Comment on above: 1 Occurrences starti ng 10/31/2022 until 11/30/2023 Patient Education [facility] Work Phone: Patient referral [facility] Work Phone: [facility] Immunizations Immunization Date Immunization Notes Care Provider Fa cility 08-29-2024 influenza, high dose seasonal, preservative-free Dr. Kem Davila MD Work Phone: [facility] 08-29-2024 RSV Adult BiValent (Abrysvo) Dr. Kem Davila MD Work Phone: [facility] 08-28-2023 influenza, injectabl e, quadrivalent, preservative free Dr. Kem Davila Work Phone: [facility] 08-28-2023 influenza virus vacc ine, unspecified formulation Emeli Hollins MD Work Phone: [facility] 11-03-2022 tetanus toxoid, redu gwen diphtheria toxoid, and acellular pertussis vaccine, adsorbed Emeli Hollins MD Work Phone: [facility] 08-18-2022 influenza (HD-IIV4) vaccine, age 65+ yr, high dose, quadrivalent, PF (FLUZONE HIGH-DOSE) Emeli Hollins MD Work Phone: [facility] 08-18-2022 Influenza, high dose seasonal Dr. Kem Davila MD Work Phone: [facility] 08-18-2022 influenza, high dose seasonal, preservative-free Dr. Kem Davila Work Phone: [facility] 08-23-2021 pneumococcal polysaccharide vaccine, 23 valent Emeli Hollins MD Work Phone: [facility] 08-19-2021 influenza (aIIV4) vaccine, age 65+ yr, quadrivalent, PF (FLUAD QUAD) Emeli Hollins MD Work Phone: [facility] 08-19-2021 Influenza, high dose seasonal Dr. Kem Davila MD Work Phone: [facility] 08-19-2021 influenza, high dose seasonal, preservative-free Dr. Kem Davila Work Phone: [facility] 08-19-2021 influenza, injectabl e, quadrivalent, preservative free Dr. Kem Davila MD Work Phone: [facility] 01-13-2021 Covid (Moderna) Dr. Kem sandoval Work Phone: [facility] 12-17-2020 Covid (Moderna) Dr. Kem sandoval Work Phone: [facility] 08-10-2020 influenza (aIIV4) vaccine, age 65+ yr, quadrivalent, PF (FLUAD QUAD) Emeli Hollins MD Work Phone: [facility] 08-10-2020 Influenza, high dose seasonal Dr. Kem Davila MD Work Phone: [facility] 08-10-2020 influenza, high dose seasonal, preservative-free Dr. Kem Davila Work Phone: [facility] 08-10-2020 influenza, injectabl e, quadrivalent, preservative free Dr. Kem Davila MD Work Phone: [facility] 07-18-2019 Influenza, high dose seasonal Dr. Kem Davila MD Work Phone: [facility] 07-18-2019 influenza, high dose seasonal, preservative-free Emeli Hollins MD Work Phone: [facility] 07-18-2019 pneumococcal conjuga te vaccine, 13 valent Emeli Hollins MD Work Phone: [facility] 01-12-2009 hepatitis B vaccine, pediatric or pediatric/adolescent dosage Emeli Hollins MD Work Phone: [facility] 09-08-2008 influenza virus vacc ine, whole virus Emeli Hollins MD Work Phone: [facility] 09-08-2008 influenza, injectabl e, quadrivalent, preservative free Dr. Kem Davila Work Phone: [facility] 08-11-2008 hepatitis B vaccine, pediatric or pediatric/adolescent dosage Emeli Hollins MD Work Phone: [facility] 07-10-2008 hepatitis B vaccine, pediatric or pediatric/adolescent dosage Emeli Hollins MD Work Phone: [facility] Payers Date Payer Category Payer Self-pay [id number] 2017 Medicare MEDICARE MEDICAR E A AND B [id number] 2017-Present [phone] [place] [address] Medicare [id number] 2017 Medicare MEDICARE MEDICAR E A AND B [id number] 2017-Present [phone] [address] [place] [id number] Medicare [id number] 2017 Unknown [employer] 2N D [id number] 2017-Present [phone] [address] [address] [place] [address] Indemnity [id number] 2017 Unknown [employer] 2N D [id number] 2017-Present [phone] [address] [address] [place] [address] Indemnity [id number] 2017 Medicare [id number] 2017 Unknown [id number] 1950 Unknown [id number] Private Health Insurance H [id number] Unknown [facility] *DO NOT USE* [id number] Unknown [id number] Unknown [id number] Unknown [id number] Social History Date Type Detail Facility Start: 12-19-2021 End: 10-20-2023 Tobacco smoking status NHIS Tobacco smoking consumption unknown [facility] Start: 1950 Sex Assigned At Not on file [facility] Start: 04-13-2022 End: 07-20-2022 Exposure to SARS-CoV-2 (event) Not sure [facility] Start: 09-17-2019 None [facility] Start: 09-17-2019 Spouse/ Signif icant Other [facility] Start: 1950 Sex Assigned At Male W [facility] Start: 12-15-2021 End: 05-19-2025 Tobacco smoking status NMIS Never smoked tobacco [facility] Start: 12-15-2021 End: 12-09-2022 Tobacco use and exposure Smokeless tobacco non-user [facility] Start: 12-15-2021 End: 03-07-2022 Alcohol intake Lifetime non-drinker (finding) [facility] Start: 12-15-2021 End: 04-23-2022 History SDOH Alcohol Frequency 1 [facility] Start: 04-25-2022 End: 05-13-2024 Alcohol intake Current drinker of alcohol (finding) [facility] Start: 04-25-2022 History SDOH Alcohol Comment social [facility] Start: 03-21-2023 End: 05-13-2024 History of Social function [facility] Start: 03-21-2023 End: 05-13-2024 Tobacco use panel [facility] Adult Depression Screening Assessment 0 [facility] Medical Equipment Procedure Code Equipment Code Equipment Origin al Text Equipment Identifier Dates DOUGH,CEMENT 6191-1-010 FDA Start: 03-05-2018 DOUGH,CEMENT 6191-1-010 FDA Start: 03-05-2018 TRIATHLON CRUC R ET FEM COMP FDA Start: 03-05-2018 TRIATHLON PRIM T IB BASEPLATE FDA Start: 03-05-2018 TRIATHLON X3 PATELLA FDA Star t: 03-05-2018 TRIATHLON X3 TIB IAL INSERT-CS FDA Start: 03-05-2018 DOUGH,CEMENT 6191-1-010 FDA Start: 03-05-2018 DOUGH,CEMENT 6191-1-010 FDA Start: 03-05-2018 TRIATHLON CRUC R ET FEM COMP FDA Start: 03-05-2018 TRIATHLON PRIM T IB BASEPLATE FDA Start: 03-05-2018 TRIATHLON X3 PATELLA FDA Star t: 03-05-2018 TRIATHLON X3 TIB IAL INSERT-CS FDA Start: 03-05-2018 DOUGH,CEMENT 6191-1-010 FDA Start: 03-05-2018 DOUGH,CEMENT 6191-1-010 FDA Start: 03-05-2018 TRIATHLON CRUC R ET FEM COMP FDA Start: 03-05-2018 TRIATHLON PRIM T IB BASEPLATE FDA Start: 03-05-2018 TRIATHLON X3 PATELLA FDA Star t: 03-05-2018 TRIATHLON X3 TIB IAL INSERT-CS FDA Start: 03-05-2018 DOUGH,CEMENT 6191-1-010 FDA Start: 03-05-2018 DOUGH,CEMENT 6191-1-010 FDA Start: 03-05-2018 TRIATHLON CRUC R ET FEM COMP FDA Start: 03-05-2018 TRIATHLON PRIM T IB BASEPLATE FDA Start: 03-05-2018 TRIATHLON X3 PATELLA FDA Star t: 03-05-2018 TRIATHLON X3 TIB IAL INSERT-CS FDA Start: 03-05-2018 DOUGH,CEMENT 6191-1-010 FDA Start: 03-05-2018 DOUGH,CEMENT 6191-1-010 FDA Start: 03-05-2018 TRIATHLON CRUC R ET FEM COMP FDA Start: 03-05-2018 TRIATHLON PRIM T IB BASEPLATE FDA Start: 03-05-2018 TRIATHLON X3 PATELLA FDA Star t: 03-05-2018 TRIATHLON X3 TIB IAL INSERT-CS FDA Start: 03-05-2018 AYRACEMENT 6191-1-010 FDA Start: 03-05-2018 ARYACEMENT 6191-1-010 FDA Start: 03-05-2018 TRIATHLON CRUC R ET FEM COMP FDA Start: 03-05-2018 TRIATHLON PRIM T IB BASEPLATE FDA Start: 03-05-2018 TRIATHLON X3 PATELLA FDA Star t: 03-05-2018 TRIATHLON X3 TIB IAL INSERT-CS FDA Start: 03-05-2018 Blood Sugar Diagnostic (Blood Glucose Test) strip Start: 11-10-2022 Lancets Start: 11-10-2022 Blood Sugar Diagnostic (Advanced Gluc Meter Test Strip) strip Start: 11-03-2022 End: 11-10-2022 Blood Sugar Diagnostic (Blood Glucose Test) strip Start: 11-10-2022 End: 11-10-2022 Lancets Start: 11-10-2022 End: 11-10-2022 Lancets (Advance d Travel Lancets) 28 gauge misc Start: 11-03-2022 End: 11-10-2022 ARYACEMENT 6191-1-010 FDA Start: 03-05-2018 ARYACEMENT 6191-1-010 FDA Start: 03-05-2018 TRIATHLON CRUC R ET FEM COMP FDA Start: 03-05-2018 TRIATHLON PRIM T IB BASEPLATE FDA Start: 03-05-2018 TRIATHLON X3 PATELLA FDA Star t: 03-05-2018 TRIATHLON X3 TIB IAL INSERT-CS FDA Start: 03-05-2018 Blood Sugar Diagnostic (Blood Glucose Test) strip Start: 12-12-2023 Lancets (Comfort Ez Lancets) 28 gauge misc Start: 06-03-2024 Lancets 31 gauge misc Start: 12-12-2023 Blood Sugar Diagnostic (Advanced Gluc Meter Test Strip) strip Start: 11-03-2022 End: 11-10-2022 Blood Sugar Diagnostic (Blood Glucose Test) strip Start: 11-10-2022 End: 11-10-2022 Blood Sugar Diagnostic (Blood Glucose Test) strip Start: 11-10-2022 End: 12-12-2023 Lancets (Advance d Travel Lancets) 28 gauge misc Start: 11-03-2022 End: 11-10-2022 Lancets 31 gauge misc Start: 11-10-2022 End: 11-10-2022 Lancets 31 gauge misc Start: 11-10-2022 End: 12-12-2023 ARYA,CEMENT 6191-1-010 FDA Start: 03-05-2018 DOUGH,CEMENT 6191-1-010 FDA Start: 03-05-2018 TRIATHLON CRUC R ET FEM COMP FDA Start: 03-05-2018 TRIATHLON PRIM T IB BASEPLATE FDA Start: 03-05-2018 TRIATHLON X3 PATELLA FDA Star t: 03-05-2018 TRIATHLON X3 TIB IAL INSERT-CS FDA Start: 03-05-2018 Blood Sugar Diagnostic (Blood Glucose Test) strip Start: 12-12-2023 Lancets (Comfort Ez Lancets) 28 gauge misc Start: 06-03-2024 Lancets 31 gauge misc Start: 12-12-2023 Blood Sugar Diagnostic (Advanced Gluc Meter Test Strip) strip Start: 11-03-2022 End: 11-10-2022 Blood Sugar Diagnostic (Blood Glucose Test) strip Start: 11-10-2022 End: 11-10-2022 Blood Sugar Diagnostic (Blood Glucose Test) strip Start: 11-10-2022 End: 12-12-2023 Lancets (Advance d Travel Lancets) 28 gauge misc Start: 11-03-2022 End: 11-10-2022 Lancets 31 gauge misc Start: 11-10-2022 End: 11-10-2022 Lancets 31 gauge misc Start: 11-10-2022 End: 12-12-2023 Clinical Notes 09-09-2006 to 05-19-2025 Note Date & Type Note Facility 05-19-2025 Discharge summary [facility] 05-19-2025 Radiology Diagnostic study note [facility] Imaging Services [address], [place] [address] Chest PA and Lateral MR#: [id number] Acct: [id number] Name: RUSLAN STEPHENS Rep #: [id number] : 1950 M 74 From: Reinaldo Dick MD PCP: Dr. Kem Davila MD Status: REG ER Study:Chest PA and Lateral Date of Exam: 05/19/25 Exam# [id number] Ordering Dr: Jayson Lerner DO PROCEDURE: CHEST PA AND LATERAL 05/19/2025 REASON FOR EXAM: EXERTIONAL DYSPNEA TECHNIQUE: CHEST PA AND LATERAL COMPARISON: Prior study dated October 20, 2023. FINDINGS: Hardware: EKG electrodes are seen. Heart: The heart is nonenlarged. Mediastinum: The mediastinal contour is unremarkable. Lungs: The lungs are clear. Bones: The bones are unremarkable. RAD/Chest PA and Lateral IMPRESSION: NO ACUTE FINDINGS. Reading Location: [facility] CC: Dr. Kem Davila MD; Dr. Jayson Ellison DO ~ Head Counselor: Signed [facility] 05-12-2025 Evaluation note Diagnosis Onset Date Resolution Atherosclerotic heart disease of [place] coronary artery without angina pectoris chronic May 12, 2025 2:59pm Essential (primary) hypertension chronic May 12, 2025 2:59pm Hyperlipidemia chronic May 12, 2025 2:59pm [facility] Work Phone: 1(165) 207-763307-28-2025 Progress [facility] [place], [place] [address] OFFICE VISIT Date of Service: 05/12/25 MR#: [id number] Acct: [id number] Name: RUSLAN STEPHENS Rep #: [id number] : 1950 Provider: LAMAR Link Age/Sex: 74/M [place] [facility] [place] Status: Signed HPI HPI History of Present Illness Details: RUSLAN STEPHENS, is a 74 M who presents to the office today for a follow-up visit.? He is a gentleman with a history of coronary artery disease status post bare-metal stenting to the proximal left anterior descending artery in 2005 at [facility].? He had been doing well until 2018 when he had a stress testwhich was mildly abnormal and his cardiac catheterization demonstrated 70% ostial first diagonal stenosis, mid LAD with 50% stenosis in the right coronary artery with 30% stenosis.? His ejection fraction was noted to be normal.? He denies chest, arm, jaw, or neck discomfort. He denies palpitations. He denies bilateral lower extremity edema. He denies claudication. He denies shortness of breath with activity, shortness of breath at rest, orthopnea, or PND. He acknowledges occasional, dry cough. He denies significant, suddenweight gain. He denies lightheadedness, dizziness, near-syncope, or syncope. He denies blood in urine, blood in stool, or epistaxis. He denies fever with chills. He denies myalgia. He denies fatigue.His exercise level has remainedstable. Intake Vital Signs 11/25/24 11:13 05/12/25 15:03 Height 5 ft 11 in 5 ft 11 in Weight: 242 lb 242 lb BMI 33.7 33.7 BP 140/84 H 136/75 H Blood Pressure Location Lt brachial Lt brachial Position Sitting Sitting Respiration 16 16 Pulse 59 L 67 Pulse Source Monitor Monitor Temp 98.0 F Pulse Oximetry (%) 94 93 Oxygen Delivery Method room air room air Intake Visit Reasons: 1 Y FU Corrections Caseworker Required: No Accompanied by: Is patient in pain?: No Allergies No Known Allergies Allergy (Verified 05/12/25 15:05) Medications ?Medication ?Instructions ?Recorded ?Confirmed ?Type aspirin 81 mg chewable tablet 81 mg PO DAILY@0800 05/2 12/3105/12/25 Rx blood-glucose meter #1 ea 11/10/22 11/25/24 Rx blood sugar diagnostic (Blood #50 ea 12/12/23 11/25/24 Rx Glucose Test strips) lancets 31 gauge #100 ea 12/12/23 11/25/24 Rx nitroglycerin 0.4 mg sublingual 0.4 mg sublingual Q5-1 5M PRN 12/12/23 11/25/24 Rx tablet Cardiac/Chest Pain #30 tabs lancets 28 gauge (Comfort EZ #100 ea 06/03/24 11/25/24 Rx Lancets) atorvastatin 80 mg tablet (Lipitor) 80 mg PO QHS ROBERT STEROL #90 tabs 11/25/24 05/12/25 Rx escitalopram oxalate 20 mg tablet 20 mg PO DAILY #90 t abs 11/25/24 05/12/25 Rx finasteride 5 mg tablet (Proscar) 5 mg PO DAILY #90 ta bs 11/25/24 05/12/25 Rx losartan 50 mg tablet 50 mg PO DAILY #90 tabs 11/1605/12/25 Rx tamsulosin 0.4 mg capsule 0.4 mg PO DAILY #90 caps 08/0905/12/25 Rx metoprolol succinate 25 mg 25 mg PO QDAY HEART/BP #90 tabs 02/21/25 05/12/25 Rx tablet,extended release 24 hr omeprazole 40 mg capsule,delayed 40 mg PO QHS GERD #90 caps 03/11/25 05/12/25 Rx release biotin 5 mg capsule 5 mg PO QDAY 05/12/25 History calcium 333 mg-vit D3 200 1 tab PO QDAY 05/12/2505/12 History unit-magnesium 133 mg-zinc 5 mg tablet lactobacillus combination no.9 4 4,000 mmu cells PO QD AY 05/12/25 05/12/25 History billion cell capsule (Adult 50 Plus Probiotic) prevagen 1 cap PO QDAY 05/12/25 Hist ory total beets 3 tab PO QDAY 05/12/25 Hist ory Ejection fraction %: 55 Have you fallen in the past year?: No PFSH Medical History Gout Near syncope Urinary tract infection Obesity History of non-ST elevation myocardial infarction (NSTEMI) (09/09/06) Essential (primary) hypertension Hernia Hyperlipidemia Atherosclerotic heart disease of [place] coronary artery without angina pectoris Surgical History Cataract extraction status H/O wrist surgery History of back surgery History of herniorrhaphy History of knee replacement (2017) History of left heart catheterization (11/27/17) H/O knee surgery History of coronary artery stent placement (09/09/06) Family History Father Myocardial infarction CAD (coronary artery disease) Mother Hx of CABG CAD (coronary artery disease) Brother Hypertension Brother Hypertension Social History household members: spouse current occupational status: employed 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 Smoking Status: Never smoker Electronic Cigarette Use: not used alcohol intake: never substance use type: does not use caffeine: Yes Type: coffee Number of servings: 3 what type of physical activity do you participate in: none seatbelt use: always do you feel safe at home: Yes ROS Const Const: Negative for fatigue, weakness, headache(s), frequent falls, night sweats, daytime sleepiness, difficulty sleeping, excessive sweating or weight gain Eyes Eyes: Negative for blurry vision or change in vision ENT ENT: Negative for headache(s), dizziness, Nosebleed/epistaxis, balance problems or neck pain Cardio Chest Pain: No Palpitations: No Edema: None Muscle aches with walking: None Resp Respiratory: Positive for Cough (occasional, dry. possibly attributes to GERD); Negative for SOB with activity, SOB at rest, SOB orthopnea\SOB lying down or paroxysmal nocturnal dyspnea GI GI: Negative nausea, vomiting, heartburn, vomiting blood/hematemesis, bright, red blood in stools or black,tarry stools : Positive for frequent nighttime urination/ nocturia; Negative for hematuria Musc Musc: Negative for muscle aches/ myalgia, muscle weakness or balance problems Skin Skin: Negative non-healing lesions, rash or wounds Neuro Neuro: Negative for dizziness, lightheadedness, near syncope, syncope, frequent falls, headache(s),weakness or blurry vision Giovani Hematologic/Lymphatic: Positive for easy bruising; Negative for easy bleeding Endo Endo: Negative for fatigue, cold intolerance, heat intolerance, excessive sweating or increased thirst/drinking Psych Psych: Negative for anxiety or depression Allergy Allergy/Immunology: Negative for hives and Negative for rash Cardiology Exam Const Appearance: cooperative and comfortable Nutritional Appearance: overweight Orientation: alert, awake and oriented x3 Head Head: normal to inspection Ears: hearing grossly normal bilaterally Nose: external nose normal Face and Sinus: face symmetric Mouth: moist mucous membranes Eyes General: appearance normal, both eyes and all related structures Eyelids: eyelids normal EOM: EOM intact bilaterally Neck Neck: no JVD Carotids: Negative bruit Chest Chest inspection: normal inspection of the chest Auscultation: Bilateral: Clear to Auscultation Cardio Rate: regular rate Rhythm: regular rhythm Heart sounds: S1 normal and S2 normal; Negative rub, gallop or murmur Distant heart tones GI GI: bowel sounds present Neuro General: patient alert and patient oriented x3 Skin Skin: no rashes or lesions noted Extremities Pulses: Normal: Right Posterior Tibial Pulse, Left Posterior Tibial Pulse, RightRadial Pulse and Left Radial Pulse Lower Extremity Edema: None: Bilateral Psych Psychological: normal affect Supplemental Info Supplemental Information Echocardiogram 05/30/2022 Interpretation Summary Normal LV size. Left ventricular systolic function is normal. The estimated ejection fraction is 55 %. Stage 2 diastolic dysfunction. Mild (1+) eccentric mitral valve insufficiency. Holter Monitor 05/09/2022 Interpretation There were a total of [id number] beats recorded over the 24 hours. Average heart rate was 78 BPM in normal sinus rhythm with periods of sinus arrhythmia. The minimum heart rate was 50 BPM in sinus bradycardia recorded at 11:43:23 PM. The maximum heart rate was 138 BPM in sinus tachycardia recorded at 1:40:25 PM. There were a total of 2039 ventricular ectopic beats comprising 1.8% of the total QRS complexes. 3 beats of ventricular bigeminy. No runs noted. There were a total of 325 supraventricular ectopic beats comprising 0.3% of the total QRS complexes. 9 atrial couplets. 2 atrial runs totaling 9 beats. The longest run was 5 beats rate 120 BPM recorded at 7:11:14 AM. The fastest run was4 beats rate 126 BPM recorded at 10:35:02 AM. The longest R-R interval was 1.8 seconds recorded at 1:11:13 AM. There was no atrial fibrillation. The patient kept a 24 hour diary. No activity or symptoms recorded. Stress Test 01/17/2022 Conclusion: Pharmacologic myocardial perfusion stress test with no obvious ischemia noted. Likely anterior breast wall attenuation noted. Preserved ejection fraction Cardiac Catheterization 11/27/2017 CONCLUSIONS Non obstructive coronary arteries Mild CAD with no high grade obstructive disease CORONARY ANGIOGRAPHY DOMINANCE:? Right Dominant LEFT HEART ASSESSMENT Left Ventricular Ejection Fraction: by Echo 60 % Normal LV wall motion Normal Left Ventricular systolic function LEFT MAIN: Angiographically normal, Angiographically normal LEFT ANTERIOR DESCENDING ARTERY: Mild luminal irregularities, Mild luminal irregularities less than30% MID LAD: Moderate luminal irregularities up to 50% DIAGONAL 1: Ostial - 70 % Stenosis CIRCUMFLEX ARTERY: Angiographically normal, Mild luminal irregularities RIGHT CORONARY ARTERY: Mild luminal irregularities Mild luminal irregularities less than 30% Labs: No Data to Display Diagnostics: Electrocardiogram Echocardiogram Stress Test Stress Test Nuclear Medicine Cardiac Catheterization Chest X-Ray Abdomen/Pelvis CT Venous Doppler Study Pulmonary: No Data to Display Past Visits: Cardiology Visit 05/12/25 Assessment and Plan Assessment and Plan (1) Atherosclerotic heart disease of [place] coronary artery without angina pectoris: Status: Chronic Qualifiers: [place] vs. transplanted heart: [place] heart Qualified Code(s): I25.10 - Atherosclerotic heart disease of [place] coronary artery without angina pectoris Comment: GIN-XKU-Izay LAD w/ 4.0 x 12 mm Liberte Stent 09/09/2006; Plan: This appears stable. We will continue to monitor and not make any medication regimen changes. We will continue to promote risk factor and lifestyle modification. 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 His last stress test was noted to be January 2022. Echocardiogram in May 2022 showedLVfunction 55%. Stress test was negative for ischemia. (2) Essential (primary) hypertension: Status: Chronic Plan: Patient's blood pressure is well-controlled today in the office. We will continue to monitor. We will not make any medication regimen changes. (3) Hyperlipidemia: Status: Chronic Qualifiers: Hyperlipidemia type: pure hypercholesterolemia Qualified Code(s): E78.00 - Pure hypercholesterolemia, unspecified; E78.0 - Pure hypercholesterolemia Plan: He will continue atorvastatin 80 mg daily. Lipids are managed through the primary service. His target LDL cholesterol should be 70. Zetia and PCSK9 inhibitor can be considered as needed based on LDL and patient's desires. Plan Details Additional Comments: Thank you for allowing us to participate in the patients plan of care, if you have any questions please do not hesitate to call. Plan was reviewed with patient/family member along with red flag symptoms. Understanding was acknowledged. Questions were answered to apparent satisfaction. This note was generated using a voice recognition system and there may be incorrect words, spellingor punctuation that were not noted when reviewing the office note prior to saving. Portions of this documentation were copied and pasted from previous office visitnotes to provide a cohesive continuity of the history. The note has been reviewed, edited, and updated, as necessary. Follow Up: 12 Months () Coding Level of Care Code Off vis,est,level 4 Diagnoses Atherosclerosis of [place] coronary artery of [place] heart without angina pectoris I25.10 [place] vs. transplanted heart: [place] heart Essential (primary) hypertension I10 Pure hypercholesterolemia E78.00; E78.0 Hyperlipidemia type: pure hypercholesterolemia Coding Level of Care Code Off vis,est,level 4 Diagnoses Atherosclerosis of [place] coronary artery of [place] heart without angina pectoris I25.10 [place] vs. transplanted heart: [place] heart Essential (primary) hypertension I10 Pure hypercholesterolemia E78.00; E78.0 Hyperlipidemia type: pure hypercholesterolemia Clinical Quality Measures Falls Risk Screening/Assistive Devices Have you fallen in the past year?: No Cardiac Ejection fraction %: 55 05/12/25 1538 P JACK SETTER-C> Date _ Joseph Link NP JACK SETTER-C Cosigner Signature: Date (if applicable) CC: Dr. Kem Davila MD ~ [facility]07-28-2025 Progress note Author Joseph Link [facility] Note Date/Time May 12, 2025 3:38 pm [facility] [address] [place] [address] OFFICE VISIT Date of Service: 05/12/25 MR#: [id number] Acct: [id number] Name: RUSLAN STEPHENS Rep #: [id number] : 1950 Provider: LAMAR Link Age/Sex: 74/M [place] [facility] [place] Status: Signed HPI HPI History of Present Illness Details: RUSLAN STEPHENS, is a 74 M who presents to the office today for a follow-up visit.? He is a gentleman with a history of coronary artery disease status post bare-metal stenting to the proximal left anterior descending artery in 2005 at [facility].? He had been doing well until 2018 when he had a stress test which was mildly abnormal and his cardiac catheterization demonstrated 70% ostial first diagonal stenosis, mid LAD with 50% stenosis in the right coronary artery with 30% stenosis.? His ejection fraction was noted to be normal.? He denies chest, arm, jaw, or neck discomfort. He denies palpitations. He denies bilateral lower extremity edema. He denies claudication. He denies shortness of breath with activity, shortness of breath at rest, orthopnea, or PND. He acknowledges occasional, dry cough. He denies significant, sudden weight gain. He denies lightheadedness, dizziness, near-syncope, or syncope. He denies blood in urine, blood in stool, or epistaxis. He denies fever with chills. He denies myalgia. He denies fatigue. His exercise level has remainedstable. Intake Vital Signs 11/25/24 11:13 05/12/25 15:03 Height 5 ft 11 in 5 ft 11 in Weight: 242 lb 242 lb BMI 33.7 33.7 BP 140/84 H 136/75 H Blood Pressure Location Lt brachial Lt brachial Position Sitting Sitting Respiration 16 16 Pulse 59 L 67 Pulse Source Monitor Monitor Temp 98.0 F Pulse Oximetry (%) 94 93 Oxygen Delivery Method room air room air Intake Visit Reasons: 1 Y FU [employer] Caseworker Required: No Accompanied by: Is patient in pain?: No Allergies No Known Allergies Allergy (Verified 05/12/25 15:05) Medications ?Medication ?Instructions ?Recorded ?Confirmed ?Type aspirin 81 mg chewable tablet 81 mg PO DAILY@0800 05/2 12/3105/12/25 Rx blood-glucose meter #1 ea 11/10/22 11/25/24 Rx blood sugar diagnostic (Blood #50 ea 12/12/23 11/25/24 Rx Glucose Test strips) lancets 31 gauge #100 ea 12/12/23 11/25/24 Rx nitroglycerin 0.4 mg sublingual 0.4 mg sublingual Q5-1 5M PRN 12/12/23 11/25/24 Rx tablet Cardiac/Chest Pain #30 tabs lancets 28 gauge (Comfort EZ #100 ea 06/03/24 11/25/24 Rx Lancets) atorvastatin 80 mg tablet (Lipitor) 80 mg PO QHS ROBERT STEROL #90 tabs 11/25/24 05/12/25 Rx escitalopram oxalate 20 mg tablet 20 mg PO DAILY #90 t abs 11/25/24 05/12/25 Rx finasteride 5 mg tablet (Proscar) 5 mg PO DAILY #90 ta bs 11/25/24 05/12/25 Rx losartan 50 mg tablet 50 mg PO DAILY #90 tabs 11/1605/12/25 Rx tamsulosin 0.4 mg capsule 0.4 mg PO DAILY #90 caps 08/0905/12/25 Rx metoprolol succinate 25 mg 25 mg PO QDAY HEART/BP #90 tabs 02/21/25 05/12/25 Rx tablet,extended release 24 hr omeprazole 40 mg capsule,delayed 40 mg PO QHS GERD #90 caps 03/11/25 05/12/25 Rx release biotin 5 mg capsule 5 mg PO QDAY 05/12/25 History calcium 333 mg-vit D3 200 1 tab PO QDAY 05/12/2505/12 History unit-magnesium 133 mg-zinc 5 mg tablet lactobacillus combination no.9 4 4,000 mmu cells PO QD AY 05/12/25 05/12/25 History billion cell capsule (Adult 50 Plus Probiotic) prevagen 1 cap PO QDAY 05/12/25 Hist ory total beets 3 tab PO QDAY 05/12/25 Hist ory Ejection fraction %: 55 Have you fallen in the past year?: No PFSH Medical History Gout Near syncope Urinary tract infection Obesity History of non-ST elevation myocardial infarction (NSTEMI) (09/09/06) Essential (primary) hypertension Hernia Hyperlipidemia Atherosclerotic heart disease of [place] coronary artery without angina pectoris Surgical History Cataract extraction status H/O wrist surgery History of back surgery History of herniorrhaphy History of knee replacement (2017) History of left heart catheterization (11/27/17) H/O knee surgery History of coronary artery stent placement (09/09/06) Family History Father Myocardial infarction CAD (coronary artery disease) Mother Hx of CABG CAD (coronary artery disease) Brother Hypertension Brother Hypertension Social History household members: spouse current occupational status: employed 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 Smoking Status: Never smoker Electronic Cigarette Use: not used alcohol intake: never substance use type: does not use caffeine: Yes Type: coffee Number of servings: 3 what type of physical activity do you participate in: none seatbelt use: always do you feel safe at home: Yes ROS Const Const: Negative for fatigue, weakness, headache(s), frequent falls, night sweats, daytime sleepiness, difficulty sleeping, excessive sweating or weight gain Eyes Eyes: Negative for blurry vision or change in vision ENT ENT: Negative for headache(s), dizziness, Nosebleed/epistaxis, balance problems or neck pain Cardio Chest Pain: No Palpitations: No Edema: None Muscle aches with walking: None Resp Respiratory: Positive for Cough (occasional, dry. possibly attributes to GERD); Negative for SOB with activity, SOB at rest, SOB orthopnea\SOB lying down or paroxysmal nocturnal dyspnea GI GI: Negative nausea, vomiting, heartburn, vomiting blood/hematemesis, bright, red blood in stools or black,tarry stools : Positive for frequent nighttime urination/ nocturia; Negative for hematuria Musc Musc: Negative for muscle aches/ myalgia, muscle weakness or balance problems Skin Skin: Negative non-healing lesions, rash or wounds Neuro Neuro: Negative for dizziness, lightheadedness, near syncope, syncope, frequent falls, headache(s), weakness or blurry vision Giovnai Hematologic/Lymphatic: Positive for easy bruising; Negative for easy bleeding Endo Endo: Negative for fatigue, cold intolerance, heat intolerance, excessive sweating or increased thirst/drinking Psych Psych: Negative for anxiety or depression Allergy Allergy/Immunology: Negative for hives and Negative for rash Cardiology Exam Const Appearance: cooperative and comfortable Nutritional Appearance: overweight Orientation: alert, awake and oriented x3 Head Head: normal to inspection Ears: hearing grossly normal bilaterally Nose: external nose normal Face and Sinus: face symmetric Mouth: moist mucous membranes Eyes General: appearance normal, both eyes and all related structures Eyelids: eyelids normal EOM: EOM intact bilaterally Neck Neck: no JVD Carotids: Negative bruit Chest Chest inspection: normal inspection of the chest Auscultation: Bilateral: Clear to Auscultation Cardio Rate: regular rate Rhythm: regular rhythm Heart sounds: S1 normal and S2 normal; Negative rub, gallop or murmur Distant heart tones GI GI: bowel sounds present Neuro General: patient alert and patient oriented x3 Skin Skin: no rashes or lesions noted Extremities Pulses: Normal: Right Posterior Tibial Pulse, Left Posterior Tibial Pulse, RightRadial Pulse and Left Radial Pulse Lower Extremity Edema: None: Bilateral Psych Psychological: normal affect Supplemental Info Supplemental Information Echocardiogram 05/30/2022 Interpretation Summary Normal LV size. Left ventricular systolic function is normal. The estimated ejection fraction is 55 %. Stage 2 diastolic dysfunction. Mild (1+) eccentric mitral valve insufficiency. Holter Monitor 05/09/2022 Interpretation There were a total of 276707 beats recorded over the 24 hours. Average heart rate was 78 BPM in normal sinus rhythm with periods of sinus arrhythmia. The minimum heart rate was 50 BPM in sinus bradycardia recorded at 11:43:23 PM. The maximum heart rate was 138 BPM in sinus tachycardia recorded at 1:40:25 PM. There were a total of 2039 ventricular ectopic beats comprising 1.8% of the total QRS complexes. 3 beats of ventricular bigeminy. No runs noted. There were a total of 325 supraventricular ectopic beats comprising 0.3% of the total QRS complexes. 9 atrial couplets. 2 atrial runs totaling 9 beats. The longest run was 5 beats rate 120 BPM recorded at 7:11:14 AM. The fastest run was4 beats rate 126 BPM recorded at 10:35:02 AM. The longest R-R interval was 1.8 seconds recorded at 1:11:13 AM. There was no atrial fibrillation. The patient kept a 24 hour diary. No activity or symptoms recorded. Stress Test 01/17/2022 Conclusion: Pharmacologic myocardial perfusion stress test with no obvious ischemia noted. Likely anterior breast wall attenuation noted. Preserved ejection fraction Cardiac Catheterization 11/27/2017 CONCLUSIONS Non obstructive coronary arteries Mild CAD with no high grade obstructive disease CORONARY ANGIOGRAPHY DOMINANCE:? Right Dominant LEFT HEART ASSESSMENT Left Ventricular Ejection Fraction: by Echo 60 % Normal LV wall motion Normal Left Ventricular systolic function LEFT MAIN: Angiographically normal, Angiographically normal LEFT ANTERIOR DESCENDING ARTERY: Mild luminal irregularities, Mild luminal irregularities less than 30% MID LAD: Moderate luminal irregularities up to 50% DIAGONAL 1: Ostial - 70 % Stenosis CIRCUMFLEX ARTERY: Angiographically normal, Mild luminal irregularities RIGHT CORONARY ARTERY: Mild luminal irregularities Mild luminal irregularities less than 30% Labs: No Data to Display Diagnostics: Electrocardiogram Echocardiogram Stress Test Stress Test Nuclear Medicine Cardiac Catheterization Chest X-Ray Abdomen/Pelvis CT Venous Doppler Study Pulmonary: No Data to Display Past Visits: Cardiology Visit 05/12/25 Assessment and Plan Assessment and Plan (1) Atherosclerotic heart disease of [place] coronary artery without angina pectoris: Status: Chronic Qualifiers: [place] vs. transplanted heart: [place] heart Qualified Code(s): I25.10 -Atherosclerotic heart disease of [place] coronary artery without angina pectoris Comment: [id number] LAD w/ 4.0 x 12 mm Liberte Stent 09/09/2006; Plan: This appears stable. We will continue to monitor and not make any medication regimen changes. We will continue to promote risk factor and lifestyle modification. 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 His last stress test was noted to be January 2022. Echocardiogram in May 2022 showed LVfunction 55%. Stress test was negative for ischemia. (2) Essential (primary) hypertension: Status: Chronic Plan: Patient's blood pressure is well-controlled today in the office. We will continue to monitor. We will not make any medication regimen changes. (3) Hyperlipidemia: Status: Chronic Qualifiers: Hyperlipidemia type: pure hypercholesterolemia Qualified Code(s): E78.00 - Pure hypercholesterolemia, unspecified; E78.0 - Pure hypercholesterolemia Plan: He will continue atorvastatin 80 mg daily. Lipids are managed through the primary service. His target LDL cholesterol should be 70. Zetia and PCSK9 inhibitor can be considered as needed based on LDL and patient's desires. Plan Details Additional Comments: Thank you for allowing us to participate in the patients plan of care, if you have any questions please do not hesitate to call. Plan was reviewed with patient/family member along with red flag symptoms. Understanding was acknowledged. Questions were answered to apparent satisfaction. This note was generated using a voice recognition system and there may be incorrect words, spelling or punctuation that were not noted when reviewing the office note prior to saving. Portions of this documentation were copied and pasted from previous office visitnotes to provide a cohesive continuity of the history. The note has been reviewed, edited, and updated, as necessary. Follow Up: 12 Months () Coding Level of Care Code Off vis,est,level 4 Diagnoses Atherosclerosis of [place] coronary artery of [place] heart without angina pectoris I25.10 [place] vs. transplanted heart: [place] heart Essential (primary) hypertension I10 Pure hypercholesterolemia E78.00; E78.0 Hyperlipidemia type: pure hypercholesterolemia Coding Level of Care Code Off vis,est,level 4 Diagnoses Atherosclerosis of [place] coronary artery of [place] heart without angina pectoris I25.10 [place] vs. transplanted heart: [place] heart Essential (primary) hypertension I10 Pure hypercholesterolemia E78.00; E78.0 Hyperlipidemia type: pure hypercholesterolemia Clinical Quality Measures Falls Risk Screening/Assistive Devices Have you fallen in the past year?: No Cardiac Ejection fraction %: 55 05/12/25 1538 <Electronically signed by Joseph Moore P JACK SETTER-C> Date _ Joseph Link NP JACK SETTER-C Cosigner Signature: Date (if applicable) CC: Dr. Kem Davila MD ~ [facility] Work Phone: [phone] 510-689907-29-2024 NoteHNO ID: [id number] Author: EMELI HOLLINS MD Service: ? Author Type: Physician Type: Progress Notes Filed: 05/15/2024 18:39 Note Text: Geriatric Medicine Follow up Today's Visit: No new concerns. Overall memory is stable and slightly improved. Mood has significantly improved He is still working and taking night shifts when available because of financial restraints. Functional Evaluation: B-ADLs: (I=independent,A=assistance,D=dependent) ?Bathing: I , Dressing: I , Toileting: I , Transferring: I , Continence: I , Feeding: I , I-ADLs: Transportation: I, Medications: I , Handle Finances: I Review of systems: Weight change: no change Appetite: no change Change in memory problems from previous visit: yes Change in mood from previous visit: no Constipation, Diarrhea: no Incontinence: no Chest pain, PND, orthopnea: no Edema: no Dyspnea: no Falls/injuries/accidents since last visit: no The remainder of the ROS as above rest was negative. Patient's allergies, medications, and Past, Family and Social history have been reviewed with the patient, and updated as appropriate. Please see relevant sections in [facility] EHR for details Current Medications (identify differences from home medications) Current Outpatient Medications Medication Sig omeprazole (PRILOSEC) 40 mg capsule Take 1 capsule by mouth once daily. losartan (COZAAR) 50 mg tablet Take by mouth. BIOTIN ORAL Take by mouth once daily. calcium/mag/vitamin D2/Zn/min (MERYL-MAG ZINC II ORAL) Take by mouth once daily. mv-min/vit C/glut/lysine/hb124 (IMMUNE SUPPORT ORAL) Take by mouth once daily. metoprolol succinate ER (TOPROL XL) 25 mg 24 hr tablet TAKE 1 TABLET BY MOUTH EVERY DAY atorvastatin (LIPITOR) 80 mg tablet TAKE 1 TABLET BY MOUTH EVERY DAY escitalopram oxalate (LEXAPRO) 20 mg tablet Take 1 tablet by mouth once daily. nitroglycerin sublingual (NITROQUICK) 0.4 mg SL tablet Nitroglycerin Active 0.4 MG SL every 5 to 15 minutes November 21, 2017 5:49pm cyclobenzaprine (FLEXERIL) 5 mg tablet Take 5 mg by mouth twice daily as needed. aspirin, enteric coated (ASPIRIN, ENTERIC COATED) 81 mg EC tablet Take 1 tablet by mouth once daily. tamsulosin (FLOMAX) 0.4 mg Take 0.4 mg by mouth once daily. Digestive Enzymes cap Take by mouth. metoprolol succinate ER (TOPROL XL) 25 mg 24 hr tablet Take by mouth. Benzonatate 200 mg capsule Take 200 mg by mouth three times a day as needed. azithromycin (ZITHROMAX) 250 mg tablet TAKE ONE TABLET BY MOUTH EVERY DAY FOR FOUR DAYS. Start ON DAY TWO of therapy. atorvastatin (LIPITOR) 80 mg tablet Take by mouth. losartan (COZAAR) 50 mg tablet Take 50 mg by mouth once daily. pregabalin (LYRICA) 25 mg capsule once daily. clopidogrel (PLAVIX) 75 mg tablet Take 1 tablet by mouth once daily. clindamycin (CLEOCIN) 300 mg capsule indomethacin (INDOCIN) 50 mg capsule TAKE 1 CAPSULE BY MOUTH TWICE A DAY NEEDED losartan-hydroCHLOROthiazide (HYZAAR) 50-12.5 mg per tablet Take by mouth. secretin, Human, (CHIROSTIM) 16 mcg solr For MRI PANCREAS FUNCTION WO/W IVCON. Inject 0.2 mcg/kg/dose intravenously as directed. Slow push at the appropriate time during MRI (Patient not taking: Reported on 10/31/2022) No current facility-administered medications for this visit. Diagnostics: Glucose (mg/dL) Date Value 12/15/2021 108 Potassium (mmol/L) Date Value 12/15/2021 4.4 Sodium (mmol/L) Date Value 12/15/2021 141 Chloride (mmol/L) Date Value 12/15/2021 102 CO2 (mmol/L) Date Value 12/15/2021 26 Creatinine (mg/dL) Date Value 12/15/2021 0.99 BUN (mg/dL) Date Value 12/15/2021 16 Anion Gap (mmol/L) Date Value 12/15/2021 13 Calcium, Total (mg/dL) Date Value 12/15/2021 9.3 Protein, Total (g/dL) Date Value 12/15/2021 7.3 Albumin (g/dL) Date Value 12/15/2021 4.6 Bilirubin, Total (mg/dL) Date Value 12/15/2021 0.3 Alkaline Phosphatase (U/L) Date Value 12/15/2021 75 AST (U/L) Date Value 12/15/2021 39 ALT (U/L) Date Value 12/15/2021 38 CBC: Hemoglobin (g/dL) Date Value 12/15/2021 14.2 Hematocrit (%) Date Value 12/15/2021 44.1 WBC (k/uL) Date Value 12/15/2021 6.23 Platelet Count (k/uL) Date Value 12/15/2021 311 TSH (mIU/L) Date Value 12/15/[address]/MRI head - 11/08/2022 11:19 AM - Radiology, [place] In Impression IMPRESSION: Small amount of FLAIR hyperintensity in the right occipital lobe with susceptibility, and susceptibility in the adjacent cortex/subcortical white matter as well. Findings may be due to small amount of subarachnoid hemorrhage and cortical/subcortical hemorrhage, perhaps from amyloid angiopathy in the right clinical setting. No restricted diffusion to indicate hemorrhagic conversion of an acute infarct. Physical Exam BP 145/86 (BP Site: Right Arm, BP Position: Sitting, BP Cuff Size: Regular Adult) Pulse (!) 56 Wt 106.4 kg (234 lb 9.1 oz) BMI 32.72 kg/m? GEN: Claudia (more content not included)...[facility]07-29-2024 History of Present illness Narrative* Emeli Hollins MD - 05/13/2024 12:45 PM EDT Images from the original note were not included. Geriatric Medicine Follow up Today's Visit: No new concerns. Overall memory is stable and slightly improved. Mood has significantly improved He is still working and taking night shifts when available because of financial restraints. Functional Evaluation: B-ADLs: (I=independent,A=assistance,D=dependent) ?Bathing: I , Dressing: I , Toileting: I , Transferring: I , Continence: I , Feeding: I , I-ADLs: Transportation: I, Medications: I , Handle Finances: I Review of systems: Weight change: no change Appetite: no change Change in memory problems from previous visit: yes Change in mood from previous visit: no Constipation, Diarrhea: no Incontinence: no Chest pain, PND, orthopnea: no Edema: no Dyspnea: no Falls/injuries/accidents since last visit: no The remainder of the ROS as above rest was negative. Patient's allergies, medications, and Past, Family and Social history have been reviewed with the patient, and updated as appropriate. Please see relevant sections in [facility] EHR for details Current Medications (identify differences from home medications) Current Outpatient Medications Medication Sig omeprazole (PRILOSEC) 40 mg capsule Take 1 capsule by mouth once daily. losartan (COZAAR) 50 mg tablet Take by mouth. BIOTIN ORAL Take by mouth once daily. calcium/mag/vitamin D2/Zn/min (MERYL-MAG ZINC II ORAL) Take by mouth once daily. mv-min/vit C/glut/lysine/hb124 (IMMUNE SUPPORT ORAL) Take by mouth once daily. metoprolol succinate ER (TOPROL XL) 25 mg 24 hr tablet TAKE 1 TABLET BY MOUTH EVERY DAY atorvastatin (LIPITOR) 80 mg tablet TAKE 1 TABLET BY MOUTH EVERY DAY escitalopram oxalate (LEXAPRO) 20 mg tablet Take 1 tablet by mouth once daily. nitroglycerin sublingual (NITROQUICK) 0.4 mg SL tablet Nitroglycerin Active 0.4 MG SL every 5 to 15minutes November 21, 2017 5:49pm cyclobenzaprine (FLEXERIL) 5 mg tablet Take 5 mg by mouth twice daily as needed. aspirin, enteric coated (ASPIRIN, ENTERIC COATED) 81 mg EC tablet Take 1 tablet by mouth once daily. tamsulosin (FLOMAX) 0.4 mg Take 0.4 mg by mouth once daily. Digestive Enzymes cap Take by mouth. metoprolol succinate ER (TOPROL XL) 25 mg 24 hr tablet Take by mouth. Benzonatate 200 mg capsule Take 200 mg by mouth three times a day as needed. azithromycin (ZITHROMAX) 250 mg tablet TAKE ONE TABLET BY MOUTH EVERY DAY FOR FOUR DAYS. Start ON DAY TWO of therapy. atorvastatin (LIPITOR) 80 mg tablet Take by mouth. losartan (COZAAR) 50 mg tablet Take 50 mg by mouth once daily. pregabalin (LYRICA) 25 mg capsule once daily. clopidogrel (PLAVIX) 75 mg tablet Take 1 tablet by mouth once daily. clindamycin (CLEOCIN) 300 mg capsule indomethacin (INDOCIN) 50 mg capsule TAKE 1 CAPSULE BY MOUTH TWICE A DAY NEEDED losartan-hydroCHLOROthiazide (HYZAAR) 50-12.5 mg per tablet Take by mouth. secretin, Human, (CHIROSTIM) 16 mcg solr For MRI PANCREAS FUNCTION WO/W IVCON. Inject 0.2 mcg/kg/dose intravenously as directed. Slow push at the appropriate time during MRI (Patient not taking: Reported on 10/31/2022) No current facility-administered medications for this visit. Diagnostics: Glucose (mg/dL) Date Value 12/15/2021 108 Potassium (mmol/L) Date Value 12/15/2021 4.4 Sodium (mmol/L) Date Value 12/15/2021 141 Chloride (mmol/L) Date Value 12/15/2021 102 CO2 (mmol/L) Date Value 12/15/2021 26 Creatinine (mg/dL) Date Value 12/15/2021 0.99 BUN (mg/dL) Date Value 12/15/2021 16 Anion Gap (mmol/L) Date Value 12/15/2021 13 Calcium, Total (mg/dL) Date Value 12/15/2021 9.3 Protein, Total (g/dL) Date Value 12/15/2021 7.3 Albumin (g/dL) Date Value 12/15/2021 4.6 Bilirubin, Total (mg/dL) Date Value 12/15/2021 0.3 Alkaline Phosphatase (U/L) Date Value 12/15/2021 75 AST (U/L) Date Value 12/15/2021 39 ALT (U/L) Date Value 12/15/2021 38 CBC: Hemoglobin (g/dL) Date Value 12/15/2021 14.2 Hematocrit (%) Date Value 12/15/2021 44.1 WBC (k/uL) Date Value 12/15/2021 6.23 Platelet Count (k/uL) Date Value 12/15/2021 311 TSH (mIU/L) Date Value 12/15/[address]/MRI head - 11/08/2022 11:19 AM - Radiology, [facility] In Impression IMPRESSION: Small amount of FLAIR hyperintensity in the right occipital lobe with susceptibility, and susceptibility in the adjacent cortex/subcortical white matter as well. Findings may be due to small amount of subarachnoid hemorrhage and cortical/subcortical hemorrhage, perhaps from amyloid angiopathy in the right clinical setting. No restricted diffusion to indicate hemorrhagic conversion of an acute infarct. Physical Exam BP 145/86 (BP Site: Right Arm, BP Position: Sitting, BP Cuff Size: Regular Adult) Pulse (!) 56 Wt 106.4 kg (234 lb 9.1 oz) BMI 32.72 kg/m GEN: Pleasant, elderly male, in NAD Skin: No active skin lesions/rash ENT: moist mucous membranes CV: Normal heart sounds, RRR, no m/r/g. No LE edema Resp: CTAB Neuro/Psych: Mental Status: Alert, oriented to person, place, and time. Follows commands. Answering questions appropriately. No dysarthria or hypophonia.= Cranial Nerves: EOMI CN VII: Face symmetric, no ptosis or facial droop Gait: Arises independently; normal posture; gait stable with normal stride length, rate, base and arm swing. Heel, toe, and tandem gait performed adequately. Cognitive Testing- MOCA 10/31/2022 11/13/2023 VISUOSPATIAL 4 5 NAMING 2 3 MEMORY WORDS 0 4 then 5 ATTENTION FORWARDS 1 1 ATTENTION BACKWARDS 1 1 TAP FOR A 1 1 SERIAL SUBTRACTION 3 3 LANGUAGE REPEAT 1 1 1 LANGUAGE REPEAT 2 1 0 FLUENCY 0 0 ABSTRACTION 1 2 DELAYED RECALL 1 3 ORIENTATION 6 6 LEVEL OF EDUCATION 0 1 TOTAL SCORE 21 27 HEARING IMPAIRED Yes VISION IMPAIRED Yes LABS/DATA: Neuropsychological testing: SUMMARY AND IMPRESSIONS: Cerebral infarction, unspecified mechanism White matter abnormality on MRI of brain Mild neurocognitive disorder Mr. Stephens is a 72 year old, White man with 12 years of formal education who was referred for a neuropsychological evaluation due to memory concerns. Results of this evaluation revealed performance that fell below expectation for age, sex, and education primarily on measures of executive function and language. Notable difficulties included generating solutions to a problem, fluency for both phoneme and semantic category, and sluggish/inefficient learning on a measure of rote verbal memory and poor single trial learning for visual information. Memory performance otherwise fell within normal limits with no evidence to suggest rapid forgetting or amnestic recall. Taken together, these changes in cognition are deemed to be a change from his baseline, but they are seen in the context of intact functional skills. He therefore meets criteria for mild neurocognitive disorder. However, the cause of this cognitive change is not entirely clear. Given his age, a neurodegenerative disease is certainly possible, but his presentation is not consistent with classic Alzheimer's disease or Lewy body disease, nor is it consistent with cerebrovascular disease. There aresome concerning motor symptoms (falls, balance difficulty, reported gait difficulty), but it is unclear to what degree they might be related to a possible neurodegenerative process. They are concerned that exposure to benzene could somehow be related to his cognitive symptoms; exposure to a carcinogen could certainly affect health, although the effect on cognition might be more indirect and dependent upon exposure amount and route (much of this research is done in non-human animals via oral ingestion or injection). Additional contributing factors include psychosocial stressors (such as finances, exhaustion from work) and insufficient sleep. It will liekly be helpful to follow him over time in order to monitor for potential change and assist with differential. IMAGING REVIEW: 11/08/2022 11:19 AM - Radiology, Oru In Impression IMPRESSION: Small amount of FLAIR hyperintensity in the right occipital lobe with susceptibility, and susceptibility in the adjacent cortex/subcortical white matter as well. Findings may be due to small amount of subarachnoid hemorrhage and cortical/subcortical hemorrhage, perhaps from amyloid angiopathy in the right clinical setting. No restricted diffusion to indicate hemorrhagic conversion of an acute infarct. Quantitative Data: Total Hippocampal Volume: Percentile for Age: 28 Asymmetry Index: -6.22 Inferior Lateral Vent Volume: Percentile for age: 98 Asymmetry Index: 0.93 Superior Lateral Vent Volume: Percentile for age: 82 Asymmetry Index: 7.98 Temporal Lobe Volume: Temporal Lobe Percentile for Age: 64 Temporal Lobe Asymmetry Percentile: 47 Frontal Lobe Volume: Frontal Lobe Percentile for Age: 63 Frontal Lobe Asymmetry Percentile: 99 Parietal Lobe Volume: Parietal Lobe Percentile for Age: 78 Occipital Lobe Volume: Occipital Lobe Percentile for Age: 58 Whole Brain Volume Brain Percentile for Age: 26 ASSESSMENT AND PLAN - Cognitive complaints MoCA stable. Today (26 + 1) No new complaints and functional status is stable Cognitive profile is not typical of Alzheimer's disease or cerebrovascular disease. His cognitive complaints are likely multifactorial. MRI shows borderline low hippocampal volumes. We will continue monitoring for any progression or signs of neurodegeneration. 3. Prediabetes Lab Results Component Value Date HBA1C 6.7 05/02/2022 4. Anxiety Lexapro has helped. -Monitor for mood changes 2. Concern for small bleed and amyloid angiopathy on MRI scan. Saw Cerebrovascular medicine. Does not meet criteria for amyloid angiopathy at this time and appears to be likely vascular malformation. 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 Seen by cerebrovascular medicine and advised MRI brain and a follow-up visit in a year. -Okay to continue aspirin. Remain off of Plavix. Follow-Up - 6 months. Needs MOCA next visit I spent a total of 30 minutes on the date of the service which included preparing to see the patient, [id number] patient care, completing clinical documentation, obtaining and/or reviewing separately obtained history, performing a medically appropriate examination, counseling and educating the pat ient/family/caregiver, ordering medications, tests, or procedures, and communicating with other HCPs (not separately reported). Voice recognition software was used to compose this office note. Please excuse any unintended typographical errors Emeli Hollins M.D Geriatric Medicine [facility] documented in this encounter[facility]24 NoteHNO ID: [id number] Author: EMELI HOLLINS MD Service: ? Author Type: Physician Type: Progress Notes Filed: 11/13/2023 12:59 Note Text: Geriatric Medicine Follow up Today's Visit: is noticing some changes that make her concerned. He is misplacing things often. He is putting things in random places. During conversations he will start talking about something unrelated and it is very off topic. He is having more trouble with words. He is still working and taking night shifts when available because of financial restraints. Lexapro has helped but he still gets irritable and starts using foul language when something does not go his way. Functional Evaluation: B-ADLs: (I=independent,A=assistance,D=dependent) ?Bathing: I , Dressing: I , Toileting: I , Transferring: I , Continence: I , Feeding: I , I-ADLs: Transportation: I, Medications: I , Handle Finances: I Review of systems: Weight change: no change Appetite: no change Change in memory problems from previous visit: yes Change in mood from previous visit: no Constipation, Diarrhea: no Incontinence: no Chest pain, PND, orthopnea: no Edema: no Dyspnea: no Falls/injuries/accidents since last visit: no The remainder of the ROS as above rest was negative. Patient's allergies, medications, and Past, Family and Social history have been reviewed with the patient, and updated as appropriate. Please see relevant sections in [facility] EHR for details Current Medications (identify differences from home medications) Current Outpatient Medications Medication Sig metoprolol succinate ER (TOPROL XL) 25 mg 24 hr tablet Take by mouth. Benzonatate 200 mg capsule Take 200 mg by mouth three times a day as needed. azithromycin (ZITHROMAX) 250 mg tablet TAKE ONE TABLET BY MOUTH EVERY DAY FOR FOUR DAYS. Start ON DAY TWO of therapy. atorvastatin (LIPITOR) 80 mg tablet Take by mouth. losartan (COZAAR) 50 mg tablet Take by mouth. losartan (COZAAR) 50 mg tablet Take 50 mg by mouth once daily. BIOTIN ORAL Take by mouth once daily. calcium/mag/vitamin D2/Zn/min (MERYL-MAG ZINC II ORAL) Take by mouth once daily. mv-min/vit C/glut/lysine/hb124 (IMMUNE SUPPORT ORAL) Take by mouth once daily. pregabalin (LYRICA) 25 mg capsule once daily. metoprolol succinate ER (TOPROL XL) 25 mg 24 hr tablet TAKE 1 TABLET BY MOUTH EVERY DAY atorvastatin (LIPITOR) 80 mg tablet TAKE 1 TABLET BY MOUTH EVERY DAY clopidogrel (PLAVIX) 75 mg tablet Take 1 tablet by mouth once daily. escitalopram oxalate (LEXAPRO) 20 mg tablet Take 1 tablet by mouth once daily. omeprazole (PRILOSEC) 40 mg capsule Take 1 capsule by mouth once daily. nitroglycerin sublingual (NITROQUICK) 0.4 mg SL tablet Nitroglycerin Active 0.4 MG SL every 5 to 15 minutes November 21, 2017 5:49pm cyclobenzaprine (FLEXERIL) 5 mg tablet Take 5 mg by mouth twice daily as needed. clindamycin (CLEOCIN) 300 mg capsule aspirin, enteric coated (ASPIRIN, ENTERIC COATED) 81 mg EC tablet Take 1 tablet by mouth once daily. indomethacin (INDOCIN) 50 mg capsule TAKE 1 CAPSULE BY MOUTH TWICE A DAY NEEDED losartan-hydroCHLOROthiazide (HYZAAR) 50-12.5 mg per tablet Take by mouth. tamsulosin (FLOMAX) 0.4 mg Take 0.4 mg by mouth once daily. Digestive Enzymes cap Take by mouth. secretin, Human, (CHIROSTIM) 16 mcg solr For MRI PANCREAS FUNCTION WO/W IVCON. Inject 0.2 mcg/kg/dose intravenously as directed. Slow push at the appropriate time during MRI (Patient not taking: Reported on 10/31/2022) No current facility-administered medications for this visit. Diagnostics: Glucose (mg/dL) Date Value 12/15/2021 108 Potassium (mmol/L) Date Value 12/15/2021 4.4 Sodium (mmol/L) Date Value 12/15/2021 141 Chloride (mmol/L) Date Value 12/15/2021 102 CO2 (mmol/L) Date Value 12/15/2021 26 Creatinine (mg/dL) Date Value 12/15/2021 0.99 BUN (mg/dL) Date Value 12/15/2021 16 Anion Gap (mmol/L) Date Value 12/15/2021 13 Calcium, Total (mg/dL) Date Value 12/15/2021 9.3 Protein, Total (g/dL) Date Value 12/15/2021 7.3 Albumin (g/dL) Date Value 12/15/2021 4.6 Bilirubin, Total (mg/dL) Date Value 12/15/2021 0.3 Alkaline Phosphatase (U/L) Date Value 12/15/2021 75 AST (U/L) Date Value 12/15/2021 39 ALT (U/L) Date Value 12/15/2021 38 CBC: Hemoglobin (g/dL) Date Value 12/15/2021 14.2 Hematocrit (%) Date Value 12/15/2021 44.1 WBC (k/uL) Date Value 12/15/2021 6.23 Platelet Count (k/uL) Date Value 12/15/2021 311 TSH (mIU/L) Date Value 12/15/2021 1.560 Physical Exam BP 146/79 (BP Site: Right Arm, BP Position: Sitting, BP Cuff Size: Regular Adult) Pulse 64 Wt 108.3 kg (238 lb 12.1 oz) BMI 33.30 kg/m? GEN: Pleasant, elderly male, in NAD Skin: No active skin lesions/rash ENT: moist mucous membranes Neuro/Psych: Mental Status: Alert, oriented to person, place, and time. Follows commands. Answering questions appropriately. No dysa (more content not included)... [facility]06-19-2023 Instructions* Patient Instructions* Emeli Hollins MD - 04/03/2023 12:15 PM EDT -Exercise 5 times a week, 30 minutes each day. -Mediterranean diet has been proven beneficial for memory impairment. -Maintain fixed sleep schedule - sleeping and waking up at the same time every day. -Engage in brain stimulating activities such as Sudoku puzzle and crossword -Learn stress reducing techniques -Close monitoring of other medical conditions Please refer to healthybrains.org website. It provides evidence based education on diet, exercise and activities that have benefit for memory. documented in this encounterKindred Healthcare06-19-2023 History of Present illness Narrative* Emeli Hollins MD - 04/03/2023 11:29 AM EDT Images from the original note were not included. Geriatric Medicine Follow up Date: April 03, 2023 Patient Name: Ruslan Stephens Reason for Visit: follow-up visit to discuss results Accompanied by: spouse SUBJECTIVE: HPI/interval history: Seen for geriatric assessment in October/2022. MoCA . Returns today after completing MRI and neuropsychological testing. After completing MRI brain, he was referred to cerebrovascular neurology due to concerns of bleed. Plavix was stopped in October 2022 due to this bleed. Sleep: Sleeps from 7PM to 2 AM. He goes to work at 3 and works till 5PM. He drives and is working on changing his schedule a little to get full night sleep. He sings in his sleeps and some times talking. This is a new behavior. No witnessed apnea. Feels fatigued during the day. Stop bang 4. OUTPATIENT MEDICATIONS Current Outpatient Medications on File Prior to Visit Medication Sig atorvastatin (LIPITOR) 80 mg tablet Take by mouth. losartan (COZAAR) 50 mg tablet Take by mouth. BIOTIN ORAL Take by mouth once daily. calcium/mag/vitamin D2/Zn/min (MERYL-MAG ZINC II ORAL) Take by mouth once daily. mv-min/vit C/glut/lysine/hb124 (IMMUNE SUPPORT ORAL) Take by mouth once daily. metoprolol succinate ER (TOPROL XL) 25 mg 24 hr tablet TAKE 1 TABLET BY MOUTH EVERY DAY atorvastatin (LIPITOR) 80 mg tablet TAKE 1 TABLET BY MOUTH EVERY DAY escitalopram oxalate (LEXAPRO) 20 mg tablet Take 1 tablet by mouth once daily. omeprazole (PRILOSEC) 40 mg capsule Take 1 capsule by mouth once daily. nitroglycerin sublingual (NITROQUICK) 0.4 mg SL tablet Nitroglycerin Active 0.4 MG SL every 5 to 15minutes November 21, 2017 5:49pm cyclobenzaprine (FLEXERIL) 5 mg tablet Take 5 mg by mouth twice daily as needed. aspirin, enteric coated (ASPIRIN, ENTERIC COATED) 81 mg EC tablet Take 1 tablet by mouth once daily. losartan-hydroCHLOROthiazide (HYZAAR) 50-12.5 mg per tablet Take by mouth. tamsulosin (FLOMAX) 0.4 mg Take 0.4 mg by mouth once daily. Digestive Enzymes cap Take by mouth. losartan (COZAAR) 50 mg tablet Take 50 mg by mouth once daily. pregabalin (LYRICA) 25 mg capsule once daily. clopidogrel (PLAVIX) 75 mg tablet Take 1 tablet by mouth once daily. clindamycin (CLEOCIN) 300 mg capsule indomethacin (INDOCIN) 50 mg capsule TAKE 1 CAPSULE BY MOUTH TWICE A DAY NEEDED secretin, Human, (CHIROSTIM) 16 mcg solr For MRI PANCREAS FUNCTION WO/W IVCON. Inject 0.2 mcg/kg/dose intravenously as directed. Slow push at the appropriate time during MRI (Patient not taking: Reported on 10/31/2022) No current facility-administered medications on file prior to visit. OBJECTIVE: BP 122/76 Pulse 81 Wt 107.7 kg (237 lb 6.4 oz) BMI 33.11 kg/m Hemoglobin A1C Date Value Ref Range Status 05/02/2022 6.7 (H) 4.3 - 5.6 % Final Comment: [place] [employer] guidelines indicate that patients with HgbA1c in the range 5.7-6.4% are at increased risk for development of diabetes, and intervention by lifestyle modification may be beneficial. HgbA1c greater or equal to 6.5% is considered diagnostic of diabetes. LABS/DATA: Neuropsychological testing: SUMMARY AND IMPRESSIONS: Cerebral infarction, unspecified mechanism White matter abnormality on MRI of brain Mild neurocognitive disorder Mr. Stephens is a 72 year old, White man with 12 years of formal education who was referred for a neuropsychological evaluation due to memory concerns. Results of this evaluation revealed performance that fell below expectation for age, sex, and education primarily on measures of executive function and language. Notable difficulties included generating solutions to a problem, fluency for both phoneme and semantic category, and sluggish/inefficient learning on a measure of rote verbal memory and poor single trial learning for visual information. Memory performance otherwise fell within normal limits with no evidence to suggest rapid forgetting or amnestic recall. Taken together, these changes in cognition are deemed to be a change from his baseline, but they are seen in the context of intact functional skills. He therefore meets criteria for mild neurocognitive disorder. However, the cause of this cognitive change is not entirely clear. Given his age, a neurodegenerative disease is certainly possible, but his presentation is not consistent with classic Alzheimer's disease or Lewy body disease, nor is it consistent with cerebrovascular disease. There aresome concerning motor symptoms (falls, balance difficulty, reported gait difficulty), but it is unclear to what degree they might be related to a possible neurodegenerative process. They are concerned that exposure to benzene could somehow be related to his cognitive symptoms; exposure to a carcinogen could certainly affect health, although the effect on cognition might be more indirect and dependent upon exposure amount and route (much of this research is done in non-human animals via oral ingestion or injection). Additional contributing factors include psychosocial stressors (such as finances, exhaustion from work) and insufficient sleep. It will liekly be helpful to follow him over time in order to monitor for potential change and assist with differential. IMAGING REVIEW: 11/08/2022 11:19 AM - Radiology, O[facility] In Impression IMPRESSION: Small amount of FLAIR hyperintensity in the right occipital lobe with susceptibility, and susceptibility in the adjacent cortex/subcortical white matter as well. Findings may be due to small amount of subarachnoid hemorrhage and cortical/subcortical hemorrhage, perhaps from amyloid angiopathy in the right clinical setting. No restricted diffusion to indicate hemorrhagic conversion of an acute infarct. Quantitative Data: Total Hippocampal Volume: Percentile for Age: 28 Asymmetry Index: -6.22 Inferior Lateral Vent Volume: Percentile for age: 98 Asymmetry Index: 0.93 Superior Lateral Vent Volume: Percentile for age: 82 Asymmetry Index: 7.98 Temporal Lobe Volume: Temporal Lobe Percentile for Age: 64 Temporal Lobe Asymmetry Percentile: 47 Frontal Lobe Volume: Frontal Lobe Percentile for Age: 63 Frontal Lobe Asymmetry Percentile: 99 Parietal Lobe Volume: Parietal Lobe Percentile for Age: 78 Occipital Lobe Volume: Occipital Lobe Percentile for Age: 58 Whole Brain Volume Brain Percentile for Age: 26 INTERNAL RECORDS: The patient's electronic medical record was reviewed. The relevant details are summarized as above. ASSESSMENT/PLAN: Mild cognitive Impairment We discussed the results of neuropsych testing and MRI. Cognitive profile is not typical of Alzheimer's disease or cerebrovascular disease. His cognitive complaints are likely multifactorial. MRI shows borderline low hippocampal volumes. We will continue monitoring for any progression or signs of neurodegeneration. 2. Concern for small bleed and amyloid angiopathy on MRI scan. Saw Cerebrovascular medicine. Does not meet criteria for amyloid angiopathy at this time and appears to be likely vascular malformation. Seen by cerebrovascular medicine and advised MRI brain and a follow-up visit in a year. -Okay to continue aspirin. Remain off of Plavix. 3. Prediabetes Hemoglobin A1C Date Value Ref Range Status 05/02/2022 6.7 (H) 4.3 - 5.6 % Final Comment: [place] [employer] guidelines indicate that patients with HgbA1c in the range 5.7-6.4% are at increased risk for development of diabetes, and intervention by lifestyle modification may be beneficial. HgbA1c greater or equal to 6.5% is considered diagnostic of diabetes. 4. Hypertension 5. Intermediate risk for MIGUEL ÁNGEL Talked about life style modifications at length for prediabetes, HTN and risk of MIGUEL ÁNGEL. 6. Anxiety Lexapro has helped. He used to cry and he notices a positive difference in his mood. I spent a total of 40 minutes on the date of the service which included preparing to see the patient, [id number] patient care, completing clinical documentation, obtaining and/or reviewing separately obtained history, performing a medically appropriate examination, counseling and educating the pat ient/family/caregiver, ordering medications, tests, or procedures, and communicating with other HCPs (not separately reported). Voice recognition software was used to compose this office note. Please excuse any unintended typographical errors Emeli Hollins MD Geriatric Medicine [facility] 04/03/2023 11:30 AM CC: Referring Physician: SELF PCP: Ulices Taveras [address] [place] [address] Patient Entered Data: Patient-Reported No flowsheet data found. Activities of Daily Living (ADL) No flowsheet data found. PROMIS-10 PROMIS 10 12/08/2022 In general, would you say your health is: Good In general, would you say your quality of life is: Very good In general, how would you rate your physical health? Good In general, how would you rate your mental health, including your mood and your ability to think? Very good In general, how would you rate your satisfaction with your social activities and relationships? Very good To what extent are you able to carry out your everyday physical activities such as walking, climbing stairs, carrying groceries, or moving a chair? Completely In general, please rate how well you carry out your usual social activities and roles. (This includes activities at home, at work and in your community, and responsibilities as a parent, child, spouse, employee, friend, etc.) Very good How would you rate your pain on average? 0 - No Pain How would you rate your fatigue on average? Mild How often have you been bothered by emotional problems such as feeling anxious, depressed or irritable? Rarely PROMIS Adult Short Form-Global Health Score (Physical) 54.1 (Very Good) PROMIS Adult Short Form-Global Health Score (Mental) 53.3 (Very Good) PHQ-9 PHQ-9 All Questions 12/08/2022 04/25/2022 Little interest or pleasure in doing things 0 0 Feeling down, depressed, or hopeless 0 0 Trouble falling or staying asleep, or sleeping too much 0 - Feeling tired or having little energy 0 - Poor appetite or overeating 0 - Feeling bad about yourself - or that you are a failure or have let yourself or your family down 0 - Trouble concentrating on things, such as reading the newspaper or watching television 0 - Moving or speaking so slowly that other people could have noticed. Or the opposite - being so fidgety or restless that you have been moving around a lot more than usual 0 - Thoughts that you would be better off , or of hurting yourself in some way 0 - PHQ-9 Score 0 - (0-4) minimal depression (5-9) mild depression (10-14) moderate depression (15-19) moderately severe depression (20-27) severe depression Full History of PHQ-9 Scores PHQ-9 Score 12/08/2022 0 Sleep 12/08/2022 Do you snore loudly? No Do you often feel sleepy, tired, or fatigued during the day? Yes Have you been told that you stop breathing during sleep? No Have you been told or are you being treated for high blood pressure? Yes Probability of moderate-severe sleep apnea (%) SAPS V2 66 (Recommend sleep study) No flowsheet data found. Caregiver-Reported No flowsheet data found. Dementia Severity Rating Scale (DSRS) No flowsheet data found. documented in this encounterKindred Healthcare02-24-2023 Instructions* Patient Instructions* Jay Miranda MD - 12/09/2022 9:59 AM EST In regards to the MRI findings, we discussed the possibility of cerebral amyloid angiopathy but also mentioned that it is difficult to be certain at this time. Therefore, we recommend repeating MRI brain in 1 year and follow up thereafter. We discussed the natural history of cerebral amyloid angiopathy, the lifelong progressive nature of amyloid angiopathy, the associated long-term risks of spontaneous intracerebral hemorrhage, and the contraindication of any therapeutic anticoagulation. OK to continue aspirin for now. Keep blood pressure under control. Return for follow up in 1 year after MRI brain. documented in this encounterKindred Healthcare02-24-2023 History of Present illness Narrative* Jay Miranda MD - 12/09/2022 9:00 AM EST Images from the original note were not included. [facility] Initial Visit Consultation is requested by: Dr. Emeli Hollins PCP: Ulices Taveras [address] [place] [address] Emeli Hollins for an opinion regarding MRI brain findings and possibilityof cerebral amyloid angiopathy. My final recommendations will be communicated back to the requesting physician by way of shared medical record or letter via US mail CEREBROVASCULAR HISTORY Ruslan Stephens is a 72 year old male who was referred for consultation for possible cerebral amyloid angiopathy. He was referred by Dr. Hollins after MRI brain performed for cognitive issues raised concern for a SWIlesion and questioned whether this could be related to cerebral amyloid angiopathy. Reason for Visit: - Incidental finding on MRI - poss CAA History of Event: Per Dr. Hollins's note, onset of symptoms about 5 years ago with difficulty finding words, short term memory loss, and repeats himself. Started on Escitalopram. Recently c/o increased falls, making mistakes at work, and worsening anger without physical manifestations. Interval: intermittent headaches 1/10, occipital area - resolves on own within a couple of hours - no treatment. Dr. Hollins stopped Plavix in October 2022. 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 Plans to decrease time on the road. Has not retired d/t financial struggles. Here with , Mirian. Antiplatelets/Anticoagulants: Aspirin - 81 mg Statins: Atorvastatin - 80 mg Side effects: No Refills needed: No Questions for Visit: To discuss MRI findings Prisca Cazares RN completing documentation PAST MEDICAL HISTORY Diagnosis Date Coronary artery disease Depression DM (diabetes mellitus), type 2 (HCC) Dyslipidemia Gout History of [place] (myocardial infarction) Hypercholesterolemia Hypertension Ischemic heart disease Obesity Peptic ulcer disease PAST SURGICAL HISTORY Procedure Laterality Date KNEE SURGERY HX Right Broken [place]ap PAST SURGICAL HISTORY OF Umbilical hernia STENT PLACEMENT 2006 x1 TOTAL KNEE REPLACEMENT Left 02/2018 TOTAL KNEE REPLACEMENT Right 12/2018 FAMILY HISTORY Problem Relation Age of Onset Diabetes Mother Heart disease Mother Heart disease Father other ([place]) Father Social History Tobacco Use Smoking status: Never Smokeless tobacco: Never Vaping Use Vaping Use: Never used Substance Use Topics Alcohol use: Yes Comment: social Drug use: Never MEDICATIONS Current Outpatient Medications Medication Sig BIOTIN ORAL Take by mouth once daily. calcium/mag/vitamin D2/Zn/min (MERYL-MAG ZINC II ORAL) Take by mouth once daily. mv-min/vit C/glut/lysine/hb124 (IMMUNE SUPPORT ORAL) Take by mouth once daily. metoprolol succinate ER (TOPROL XL) 25 mg 24 hr tablet TAKE 1 TABLET BY MOUTH EVERY DAY atorvastatin (LIPITOR) 80 mg tablet TAKE 1 TABLET BY MOUTH EVERY DAY escitalopram oxalate (LEXAPRO) 20 mg tablet Take 1 tablet by mouth once daily. omeprazole (PRILOSEC) 40 mg capsule Take 1 capsule by mouth once daily. nitroglycerin sublingual (NITROQUICK) 0.4 mg SL tablet Nitroglycerin Active 0.4 MG SL every 5 to 15minutes November 21, 2017 5:49pm aspirin, enteric coated (ASPIRIN, ENTERIC COATED) 81 mg EC tablet Take 1 tablet by mouth once daily. losartan-hydroCHLOROthiazide (HYZAAR) 50-12.5 mg per tablet Take by mouth. tamsulosin (FLOMAX) 0.4 mg Take 0.4 mg by mouth once daily. Digestive Enzymes cap Take by mouth. pregabalin (LYRICA) 25 mg capsule once daily. clopidogrel (PLAVIX) 75 mg tablet Take 1 tablet by mouth once daily. cyclobenzaprine (FLEXERIL) 5 mg tablet Take 5 mg by mouth twice daily as needed. clindamycin (CLEOCIN) 300 mg capsule indomethacin (INDOCIN) 50 mg capsule TAKE 1 CAPSULE BY MOUTH TWICE A DAY NEEDED secretin, Human, (CHIROSTIM) 16 mcg solr For MRI PANCREAS FUNCTION WO/W IVCON. Inject 0.2 mcg/kg/dose intravenously as directed. Slow push at the appropriate time during MRI (Patient not taking: Reported on 10/31/2022) No current facility-administered medications for this visit. ALLERGIES ALLERGIES No Known Allergies PHYSICAL EXAMINATION BP 136/67 (BP Site: Left Arm, BP Position: Sitting, BP Cuff Size: Large Adult) Pulse 68 Temp 36.2 C (97.1 F) (Temporal) Resp 14 Ht 180.3 cm (5' 11) Wt 106.6 kg (235 lb) SpO2 100% BMI 32.78 kg/m General: Well-developed, well-nourished, in no acute distress. HEENT: Normocephalic, atraumatic. Sclerae anicteric. Oropharynx clear. Neck: No carotid bruit. Heart: Regular rate and rhythm, S1 S2, no murmurs. Lungs: Clear to auscultation bilaterally. Abdomen: Abdomen soft, non-tender. Bowel sounds normal. No masses, organomegaly. Extremities: No edema, cyanosis, or clubbing. 2+ dorsalis pedis pulses bilaterally. Skin: No rash or ecchymoses. Neurological: Awake, alert, oriented to person, place, and time. Speech fluent, no dysarthria. Naming, repetition, recall, comprehension, calculation intact. Good attention and insight into illness. Cranial Nerves: PERRL, extraocular movements intact without nystagmus. Visual wiley full. Fundoscopic examination normal with sharp optic discs bilaterally. Facial sensation and movements normal andsymmetric. Palate elevates equal bilaterally. Tongue midline. Trapezius strength 5/5 bilaterally. Motor: Normal bulk and tone. Strength 5/5 throughout. No pronator drift or tremor. Sensation: Intact light touch, pinprick, temperature, proprioception, and vibration. Coordination: Rapid alternating movements symmetric bilaterally. Wuyloi-lb-vntd, aiwx-mo-oidn without dysmetria bilaterally. Reflexes: 2+/4 reflexes symmetric bilaterally. Plantar response is flexor bilaterally. Gait: Narrow-based, normal spaced and stable without assistance. Tandem gait is stable. LABS Cholesterol: No results found for: CHOL No results found for: LDL No results found for: HDL No results found for: TG Diabetes: Hemoglobin A1C (%) Date Value 05/02/2022 6.7 IMAGING MRI Brain: Patient Entered Questionnaires PROMIS/NeuroQoL Score Percentiles Physical Health 12/08/2022 Physical Function Percentile 27* Sleep Percentile 79 Fatigue Percentile 58 Pain Interference Percentile 38 PROMIS SOCIAL ROLE SCORE 12/08/2022 Social Role Satisfaction Percentile 96 Mental Health 12/08/2022 NeuroQol Cognitive Function Percentile 50 General Self-Efficacy Percentile 97 PROMIS Global Health Scale 12/08/2022 Physical Health Percentile 66 Mental Health Percentile 63 Percentiles provide an indication of how a patient's score ranks in relation to the [place] general population. > 31st percentile is within normal limits or better * < 31st percentile is at least SD worse than population, which may be clinically relevant < 16th percentile is at least 1 SD worse than population and warrants attention Depression Screening: PHQ-9 12/08/2022 Score 0 Self-Harm Response 0 PHQ-9 Scores: PHQ-9 Self-Harm (Item 9) Response: 0 - 9 No to Mild depression 0 - Not at all 10 - 14 Moderate depression 1 - Several Days > 15 Severe depression 2 - More than half the days 3 - Nearly every day Sleep Apnea Probability Snores loudly: No Tired, fatigued or sleepy in daytime: Yes Stops breathing or choking/gasping during sleep: No High blood pressure: Yes Sleep Apnea Probability Score 12/08/2022 Sleep Apnea Screen V2 66 (Recommend sleep study) IMPRESSION In regards to the MRI findings, we discussed the possibility of cerebral amyloid angiopathy but also mentioned that it is difficult to be certain at this time given just one area of susceptibility artifact which at this time looks more like an underlying vascular malformation e.g. cavernoma although could represent a cluster of microbleeds but this remains uncertain. There are no other findings on MRI that raise suspicion for CAA. Therefore, I recommend repeating MRI brain in 1 year and follow up thereafter. We discussed the natural history of cerebral amyloid angiopathy, the lifelong progressive nature of amyloid angiopathy, the associated long-term risks of spontaneous intracerebral hemorr olga, and the contraindication of any therapeutic anticoagulation. OK to continue aspirin for now. Keep blood pressure under control. Return for follow up in 1 year after MRI brain. Medical Decision Making: Medical Decision Making Level: 1 - N/A I spent a total of 60 minutes on the date of service which included preparing to see the patient, [id number] patient care, completing clinical documentation, obtaining and/or reviewing separately obtained history, performing a medically appropriate examination, counseling and educating the patient/family/caregiver, ordering medications, tests, or procedures, communicating with other HCPs (not separately reported), independently interpreting results (not separately reported), and communicatingresults to the patient/family/caregiver SEEMA Miranda MD. MPH Staff, Cerebrovascular Division [facility] No referring provider defined for this encounter. Ulices Taveras [address] [place] [address] documented in this encounterKindred Healthcare02-15-2023 History of Present illness Narrative* Maricel Guerrero - 11/30/2022 9:47 AM EST 11/30 Faxed signed plan of care and scanned that and fax confirmation into scanned documents. LM documented in this encounterKindred Healthcare01-27-2023 Miscellaneous Notes* Telephone Encounter - Prisca Cazares RN - 11/11/2022 1:15 PM EST Per email from Dr. Miranda, Can you please help with a new patient visit with me for this patient? Referral by a colleague. Called and spoke with patient's spouse, Mirian. Accepted an in person appointment on 12/09 @ [address] Miranda aware. Prisca Cazares RN documented in this encounterKindred Healthcare01-27-2023 Miscellaneous Notes* Telephone Encounter - Emeli Hollins MD - 11/11/2022 1:08 PM EST Spoke with spouse about MRI findings. No clinical change since he last saw me. Will refer to [facility]. Dr. Miranda's office will reach out for appointment. Will stop Plavix for now due to increase risk. understood instructions. She has not scheduled NPT. Will see her in office after that is done. documented in this encounterKindred Healthcare01-24-2023 History of Present illness Narrative* RT Huey(R) - 11/08/2022 10:00 AM EST Radiology Service Progress Note PATIENT NAME: Ruslan Stephens DATE OF SERVICE: November 08, 2022 TIME: 10:11 AM PATIENT IDENTITY VERIFICATION COMPLETED USING TWO (2) IDENTIFIERS: Name and Date of confirmedby patient verbally and Name and Date of confirmed by identification band. FALL SCREENING: Has the patient had 2 falls in the last year or 1 fall with injury or currently using an Ambulatory Assistive Device (Walker, Cane, Wheelchair, Crutches, etc.)? No PATIENT GENDER DATA: Male PATIENT RELEVANT IMPLANT DATA REVIEWED: Yes RADIOLOGY DEPARTMENT: MR; Exam(s) Completed: Head: dementia protocol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 Normocephalic and atraumatic. Nose: Nose normal. Eyes: Extraocular Movements: Extraocular movements intact. Pupils: Pupils are equal, round, and reactive to light. Cardiovascular: Rate and Rhythm: Normal rate and regular rhythm. Pulmonary: Effort: Pulmonary effort is normal. Breath sounds: Normal breath sounds. Abdominal: General: Bowel sounds are normal. Palpations: Abdomen is soft. Musculoskeletal: General: Normal range of motion. Cervical back: Normal range of motion and neck supple. Skin: General: Skin is warm and dry. Capillary Refill: Capillary refill takes less than 2 seconds. Neurological: General: No focal deficit present. Mental Status: He is alert and oriented to person, place, and time. Mental status is at baseline. Psychiatric: Mood and Affect: Mood normal. Behavior: Behavior normal. [facility]08-22-2022 History of Present illness Narrative* Ulices Taveras MD - 06/06/2022 11:16 AM EDT This note was created using [employer] Medicalriter. Subjective Ruslan Stephens is a 71 year old male. He presents today for preop clearance for back surgery. He is having a laminectomy done. Review of Systems Constitutional: Negative. HENT: Negative. Eyes: Negative. Respiratory: Negative. Cardiovascular: Negative. Gastrointestinal: Negative. Endocrine: Negative. Genitourinary: Negative. Musculoskeletal: Negative. Skin: Negative. Allergic/Immunologic: Negative. Neurological: Negative. Hematological: Negative. Psychiatric/Behavioral: Negative. Objective BP 148/80 (BP Site: Right Arm, BP Cuff Size: Large Adult) Pulse (!) 56 Temp 36.2 C (97.1 F) (Temporal) Resp 14 Ht 180.3 cm (5' 11) Wt 104 kg (229 lb 3.2 oz) SpO2 96% BMI 31.97 kg/m Physical Exam Vitals reviewed. Constitutional: Appearance: Normal appearance. HENT: Head: Normocephalic and atraumatic. Nose: Nose normal. Eyes: Extraocular Movements: Extraocular movements intact. Pupils: Pupils are equal, round, and reactive to light. Cardiovascular: Rate and Rhythm: Normal rate and regular rhythm. Pulmonary: Effort: Pulmonary effort is normal. Breath sounds: Normal breath sounds. Abdominal: General: Bowel sounds are normal. Palpations: Abdomen is soft. Musculoskeletal: General: Normal range of motion. Cervical back: Normal range of motion and neck supple. Skin: General: Skin is warm and dry. Capillary Refill: Capillary refill takes less than 2 seconds. Neurological: General: No focal deficit present. Mental Status: He is alert and oriented to person, place, and time. Mental status is at baseline. Psychiatric: Mood and Affect: Mood normal. Behavior: Behavior normal. Assessment and Plan Ruslan was seen today for pre-op exam. Diagnoses and all orders for this visit: Preoperative clearance Patient has had no prior difficulties with anesthesia. He is medically maximized for surgery. Additionally has received cardiac clearance. He is cleared for procedure. * Ulices Taveras MD - 06/06/2022 10:48 AM EDT This note was created using [employer]. Subjective Ruslan Stephens is a 71 year old male. Review of Systems Constitutional: Negative. HENT: Negative. Eyes: Negative. Respiratory: Negative. Cardiovascular: Negative. Gastrointestinal: Negative. Endocrine: Negative. Genitourinary: Negative. Musculoskeletal: Negative. Skin: Negative. Allergic/Immunologic: Negative. Neurological: Negative. Hematological: Negative. Psychiatric/Behavioral: Negative. Objective BP 148/80 (BP Site: Right Arm, BP Cuff Size: Large Adult) Pulse (!) 56 Temp 36.2 C (97.1 F) (Temporal) Resp 14 Ht 180.3 cm (5' 11) Wt 104 kg (229 lb 3.2 oz) SpO2 96% BMI 31.97 kg/m Physical Exam Vitals reviewed. Constitutional: Appearance: Normal appearance. HENT: Head: Normocephalic and atraumatic. Nose: Nose normal. Eyes: Extraocular Movements: Extraocular movements intact. Pupils: Pupils are equal, round, and reactive to light. Cardiovascular: Rate and Rhythm: Normal rate and regular rhythm. Pulmonary: Effort: Pulmonary effort is normal. Breath sounds: Normal breath sounds. Abdominal: General: Bowel sounds are normal. Palpations: Abdomen is soft. Musculoskeletal: General: Normal range of motion. Cervical back: Normal range of motion and neck supple. Skin: General: Skin is warm and dry. Capillary Refill: Capillary refill takes less than 2 seconds. Neurological: General: No focal deficit present. Mental Status: He is alert and oriented to person, place, and time. Mental status is at baseline. Psychiatric: Mood and Affect: Mood normal. Behavior: Behavior normal. Assessment and Plan documented in this encounter[facility]07-[facility]-2022 NoteHNO ID: [id number] Author: Ulices Taveras MD Service: ? Author Type: Physician Type: Progress Notes Filed: 05/09/2022 1:59 PM Note Text: This note was created using [email or web address]. Subjective Ruslan Stephens is a 71 year old male who presents today for follow-up for multiple medical problems. See list. His chronic medical problems are stable. His blood pressure is good controlled on his current regimen. He is tolerating this well. He is wearing a heart monitor due to a couple of lightheaded episodes at work. This is being done by cardiology. His A1c is increased to 6.7. Review of Systems Constitutional: Negative. HENT: Negative. Eyes: Negative. Respiratory: Negative. Cardiovascular: Negative. Gastrointestinal: Negative. Endocrine: Negative. Genitourinary: Negative. Musculoskeletal: Negative. Skin: Negative. Allergic/Immunologic: Negative. Neurological: Negative. Hematological: Negative. Psychiatric/Behavioral: Negative. Objective BP 134/74 (BP Site: Left Arm, BP Position: Sitting) Pulse 64 Temp 36.7 ?C (98 ?F) Resp 18 Ht 176.5 cm (5' 9.5) Wt 105.5 kg (232 lb 9.6 oz) SpO2 95% BMI 33.86 kg/m? Physical Exam Vitals reviewed. Constitutional: Appearance: Normal appearance. HENT: Head: Normocephalic and atraumatic. Nose: Nose normal. Eyes: Extraocular Movements: Extraocular movements intact. Pupils: Pupils are equal, round, and reactive to light. Cardiovascular: Rate and Rhythm: Normal rate and regular rhythm. Pulmonary: Effort: Pulmonary effort is normal. Breath sounds: Normal breath sounds. Abdominal: General: Bowel sounds are normal. Palpations: Abdomen is soft. Musculoskeletal: General: Normal range of motion. Cervical back: Normal range of motion and neck supple. Skin: General: Skin is warm and dry. Capillary Refill: Capillary refill takes less than 2 seconds. Neurological: General: No focal deficit present. Mental Status: He is alert and oriented to person, place, and time. Mental status is at baseline. Psychiatric: Mood and Affect: Mood normal. Behavior: Behavior normal. Assessment and Plan Ruslan was seen today for follow up. Diagnoses and all orders for this visit: Primary hypertension Mixed hyperlipidemia Ischemic heart disease Hx of myocardial infarction Diabetes mellitus type II (HCC) Idiopathic gout, unspecified chronicity, unspecified site Major depressive disorder with single episode, in remission (HCC) Anxiety Other orders - nitroglycerin sublingual (NITROQUICK) 0.4 mg SL tablet; Nitroglycerin Active 0.4 MG SL every 5 to 15 minutes November 21, 2017 5:49pm Improved diabetic diet. Increase exercise. Reduce weight. Reduce stress. Recheck A1c in 3 months.[facility]07-25-2022 History of Present illness Narrative* Ulices Taveras MD - 05/09/2022 12:10 PM EDT This note was created using NoteWriter. Subjective Ruslan Stephens is a 71 year old male who presents today for follow-up for multiple medical problems. See list. His chronic medical problems are stable. His blood pressure is good controlled on his current regimen. He is tolerating this well. He is wearing a heart monitor due to a couple of lightheaded episodes at work. This is being done by cardiology. His A1c is increased to 6.7. Review of Systems Constitutional: Negative. HENT: Negative. Eyes: Negative. Respiratory: Negative. Cardiovascular: Negative. Gastrointestinal: Negative. Endocrine: Negative. Genitourinary: Negative. Musculoskeletal: Negative. Skin: Negative. Allergic/Immunologic: Negative. Neurological: Negative. Hematological: Negative. Psychiatric/Behavioral: Negative. Objective BP 134/74 (BP Site: Left Arm, BP Position: Sitting) Pulse 64 Temp 36.7 C (98 F) Resp 18 Ht 176.5 cm (5' 9.5) Wt 105.5 kg (232 lb 9.6 oz) SpO2 95% BMI 33.86 kg/m Physical Exam Vitals reviewed. Constitutional: Appearance: Normal appearance. HENT: Head: Normocephalic and atraumatic. Nose: Nose normal. Eyes: Extraocular Movements: Extraocular movements intact. Pupils: Pupils are equal, round, and reactive to light. Cardiovascular: Rate and Rhythm: Normal rate and regular rhythm. Pulmonary: Effort: Pulmonary effort is normal. Breath sounds: Normal breath sounds. Abdominal: General: Bowel sounds are normal. Palpations: Abdomen is soft. Musculoskeletal: General: Normal range of motion. Cervical back: Normal range of motion and neck supple. Skin: General: Skin is warm and dry. Capillary Refill: Capillary refill takes less than 2 seconds. Neurological: General: No focal deficit present. Mental Status: He is alert and oriented to person, place, and time. Mental status is at baseline. Psychiatric: Mood and Affect: Mood normal. Behavior: Behavior normal. Assessment and Plan Ruslan was seen today for follow up. Diagnoses and all orders for this visit: Primary hypertension Mixed hyperlipidemia Ischemic heart disease Hx of myocardial infarction Diabetes mellitus type II (HCC) Idiopathic gout, unspecified chronicity, unspecified site Major depressive disorder with single episode, in remission (HCC) Anxiety Other orders - nitroglycerin sublingual (NITROQUICK) 0.4 mg SL tablet; Nitroglycerin Active 0.4 MG SL every 5 to15 minutes November 21, 2017 5:49pm Improved diabetic diet. Increase exercise. Reduce weight. Reduce stress. Recheck A1c in 3 months. documented in this [facility] Miscellaneous Notes* Telephone Encounter - Ulices Taveras MD - 04/28/2022 4:55 PM EDT Entered. [facility] * Telephone Encounter - Tequila Rodriguez LPN - 04/28/2022 3:34 PM EDT Pt called in asking to be referred to pain management. documented in this encounterKindred [facility]07-11-2022 NoteHNO ID: [id number] Author: Ulices Taveras MD Service: ? Author Type: Physician Type: Progress Notes Filed: 04/25/2022 6:00 PM Note Text: This note was created using Gliph. Subjective Ruslan Stephens is a 71 year old male. HPI Patient presents today for follow-up from the emergency room for severe low back and right hip pain radiating to his foot. He was treated with a Medrol Dosepak which he is still taking. His gave him some of her pain pills as well. He is also using Voltaren gel. Symptoms are improving somewhat today. Review of Systems Constitutional: Negative. HENT: Negative. Eyes: Negative. Respiratory: Negative. Cardiovascular: Negative. Gastrointestinal: Negative. Endocrine: Negative. Genitourinary: Negative. Musculoskeletal: Positive for back pain. Skin: Negative. Allergic/Immunologic: Negative. Neurological: Negative. Hematological: Negative. Psychiatric/Behavioral: Negative. Objective BP 138/82 (BP Site: Right Arm, BP Cuff Size: Large Adult) Pulse 77 Temp 36.5 ?C (97.7 ?F) (Temporal) Resp 14 Ht 179.1 cm (5' 10.5) Wt 103.5 kg (228 lb 3.2 oz) SpO2 95% BMI 32.28 kg/m? Physical Exam Musculoskeletal: General: Tenderness present. Lumbar back: Tenderness present. Decreased range of motion. Positive right straight leg raise test. Assessment and Plan Ruslan was seen today for acute visit. Diagnoses and all orders for this visit: Acute midline low back pain with right-sided sciatica - CONSULT TO PHYSICAL THERAPY; Future Other orders - predniSONE (DELTASONE) 20 mg tablet; Take 2 tablets by mouth once daily for 7 days. Moist heat. Stretching exercises.[facility]07-11-2022 History of Present illness Narrative* Ulices Taveras MD - 04/25/2022 5:57 PM EDT This note was created using [employer]. Subjective Ruslan Stephens is a 71 year old male. HPI Patient presents today for follow-up from the emergency room for severe low back and right hip painradiating to his foot. He was treated with a Medrol Dosepak which he is still taking. His gavehim some of her pain pills as well. He is also using Voltaren gel. Symptoms are improving somewhat today. Review of Systems Constitutional: Negative. HENT: Negative. Eyes: Negative. Respiratory: Negative. Cardiovascular: Negative. Gastrointestinal: Negative. Endocrine: Negative. Genitourinary: Negative. Musculoskeletal: Positive for back pain. Skin: Negative. Allergic/Immunologic: Negative. Neurological: Negative. Hematological: Negative. Psychiatric/Behavioral: Negative. Objective BP 138/82 (BP Site: Right Arm, BP Cuff Size: Large Adult) Pulse 77 Temp 36.5 C (97.7 F) (Temporal) Resp 14 Ht 179.1 cm (5' 10.5) Wt 103.5 kg (228 lb 3.2 oz) SpO2 95% BMI 32.28 kg/m Physical Exam Musculoskeletal: General: Tenderness present. Lumbar back: Tenderness present. Decreased range of motion. Positive right straight leg raise test. Assessment and Plan Ruslan was seen today for acute visit. Diagnoses and all orders for this visit: Acute midline low back pain with right-sided sciatica - CONSULT TO PHYSICAL THERAPY; Future Other orders - predniSONE (DELTASONE) 20 mg tablet; Take 2 tablets by mouth once daily for 7 days. Moist heat. Stretching exercises. documented in this encounterKind[facility]07-[facility]-2022 Nurse Note* Kaila Gary LPN - 04/25/2022 4:55 PM EDT Pt had went to [facility] and had an xray that didn't show anything. Pt was prescriped medrol pk onThursday prescribed flexaril 5 mg tab Pt still has complaints of 5/10 pain documented in this encounterKindred Healthcare04-27-2022 History of Present illness Narrative* RT Bacilio(R) - 02/09/2022 10:30 AM EDT Radiology Service Progress Note PATIENT NAME: Ruslan Stephens DATE OF SERVICE: February 09, 2022 TIME: 12:09 PM PATIENT IDENTITY VERIFICATION COMPLETED USING TWO (2) IDENTIFIERS: Name and Date of confirmedby patient verbally. FALL SCREENING: Has the patient had 2 falls in the last year or 1 fall with injury or currently using an Ambulatory Assistive Device (Walker, Cane, Wheelchair, Crutches, etc.)? No PATIENT GENDER DATA: Male PATIENT RELEVANT IMPLANT DATA REVIEWED: Yes RADIOLOGY DEPARTMENT: MR; Exam(s) Completed: Body: Pancreas/Biliary (functional) PERIPHERAL IV DATA: Site assessment: Clean,Dry and Intact, Site disposition Left in for next appointment (to be removed by MRI nurse) SIGNED BY: RT Bacilio(R) / MRB4 February 09, 2022 12:09 PM * Jsoefa Mart RN - 02/09/2022 10:30 AM EDT Radiology Service Progress Note DATE OF SERVICE: February 09, 2022 TIME: 9:44 AM PATIENT WEIGHT: 225LBS PATIENT IDENTITY VERIFICATION COMPLETED USING TWO (2) STANDARD IDENTIFIERS: Name and Date of confirmed by patient verbally and Name and Date of confirmed by identification band. FALL SCREENING: Has the patient had 2 falls in the last year or 1 fall with injury or currently using an Ambulatory Assistive Device (Walker, Cane, Wheelchair, Crutches, etc.)? No PATIENT GENDER DATA: Male ALLERGIES: Reviewed and unchanged CONTRAST ALLERGY: No EXAM: MRI - CONTRAST TYPE: GROUP II IV SITE: Ambulatory: A peripheral IV was started in the Right antecubital site with a Angio cath: 22 gauge. and A Saline lock was inserted per protocol IV SITE APPEARANCE: Clean,Dry and Intact SIGNATURE: Eufemia Arteaga RN PATIENT NAME: Ruslan Stephens DATE: February 09, 2022 TIME: 9:44 AM Radiology Service Progress Note PATIENT NAME: Ruslan Stephens DATE OF SERVICE: February 09, 2022 TIME: 9:44 AM PATIENT IDENTITY VERIFICATION COMPLETED USING TWO (2) STANDARD IDENTIFIERS: Name and Date of confirmed by patient verbally and Name and Date of confirmed by identification band. PATIENT GENDER DATA: Male PATIENT RELEVANT IMPLANT DATA REVIEWED: Not Applicable ALLERGIES: Reviewed and unchanged MEDICATIONS REVIEWED: YES PROCEDURE: Secretin Secretin 20 mcg administered . Pt states he has 0/10 pain prior to start of procedure 1220 Tolerated juice and crackers well without pain or nausea IV SITE: Ambulatory: A peripheral IV was started in the Right antecubital site with a Angio cath: 22 gauge. and A Saline lock was inserted per protocol PERIPHERAL IV ACCESS: Discontinued PATIENT TOLERATED PROCEDURE: Without incident. PATIENT DISCHARGED TO: Home/Self Care @ 1230 SIGNED BY: Eufemia Arteaga RN February 09, 2022 9:44 AM documented in this encounterKindred Healthcare04-27-2022 History of Present illness Narrative* Eufemia Arteaga RN - 02/09/2022 10:00 AM EDT PATIENT EDUCATION RADIOLOGY TOPIC: Procedure/Surgery: Secretin READINESS TO LEARN COGNITIVE ABILITY: Alert and oriented MOTIVATION TO LEARN: Eager FAMILY SUPPORT: None - Unavailable/disinterested INSTRUCTION PROVIDED TO: Patient PATIENT LEARNS BEST BY: Verbal Instruction FACTORS AFFECTING LEARNING: None PHYSICAL LIMITATIONS AFFECTING LEARNING: None LEARNING RESPONSE Procedure: Angio Procedures: Radiology Procedures: Secretin METHOD OF INSTRUCTION: Verbal instruction PATIENT / FAMILY RESPONSE: Verbalizes understanding of: Pre Procedure Instructions Post Procedure Instructions FOLLOW-UP PLAN: Complete - No need for follow-up Electronically Signed By Eufemia Arteaga RN documented in this encounterKindred Healthcare01-31-2022 Miscellaneous Notes* Telephone Encounter - Anjelica Reese - 2021 3:[address] Oconnell Medical Records including: H&P, CT scan, Pathology report, colonoscopy and labs have been received and uploaded to Patient's chart for your review. Anjelica Ross (Joni) Supervisor [employer] DDSI documented in this encounterKindred Healthcare12-12-2019 History of Past illness Narrative* Problem Noted Date Resolved Date Sepsis 09/26/2019 06/26/2022 documented as of this encounter (statuses as of 07/04/2022) [address]12-2019 History of Past illness Narrative* Problem Noted Date Resolved Date Sepsis 09/26/2019 06/26/2022 documented as of this encounter (statuses as of 07/20/2022) [address]12-2019 History of Past illness Narrative* Problem Noted Date Resolved Date Sepsis 09/26/2019 06/26/2022 documented as of this encounter (statuses as of 08/22/2022) [address]12-2019 History of Past illness Narrative* Problem Noted Date Resolved Date Sepsis 09/26/2019 06/26/2022 documented as of this encounter (statuses as of 08/26/2022) [address]12-2019 History of Past illness Narrative* Problem Noted Date Resolved Date Sepsis 09/26/2019 06/26/2022 documented as of this encounter (statuses as of 10/25/2022) [address]-2019 History of Past illness Narrative* Problem Noted Date Resolved Date Sepsis 09/26/2019 06/26/2022 documented as of this encounter (statuses as of 10/31/2022) [address]-2019 History of Past illness Narrative* Problem Noted Date Resolved Date Sepsis 09/26/2019 06/26/2022 documented as of this encounter (statuses as of 11/01/2022) [address]-2019 History of Past illness Narrative* Problem Noted Date Resolved Date Sepsis 09/26/2019 06/26/2022 documented as of this encounter (statuses as of 11/09/2022) [address]2019 History of Past illness Narrative* Problem Noted Date Resolved Date Sepsis 09/26/2019 06/26/2022 documented as of this encounter (statuses as of 11/11/2022) [address]2019 History of Past illness Narrative* Problem Noted Date Resolved Date Sepsis 09/26/2019 06/26/2022 documented as of this encounter (statuses as of 11/11/2022) [address]2019 History of Past illness Narrative* Problem Noted Date Resolved Date Sepsis 09/26/2019 06/26/2022 documented as of this encounter (statuses as of 11/30/2022) [facility] History of Past illness Narrative* Problem Noted Date Resolved Date Sepsis 09/26/2019 06/26/2022 documented as of this encounter (statuses as of 12/08/2022) [facility] History of Past illness Narrative* Problem Noted Date Resolved Date Sepsis 09/26/2019 06/26/2022 documented as of this encounter (statuses as of 12/27/2022) [facility] History of Past illness Narrative* Problem Noted Date Resolved Date Sepsis 09/26/2019 06/26/2022 documented as of this encounter (statuses as of 04/06/2023) [facility] Evaluation note* Diagnosis Onset Date Resolution Status Atherosclerotic heart diseas e of [place] coronary artery without angina pectoris chronic Essential (primary) hypertension chronic Hyperlipidemia chronic History of coronary artery stent placement September 092005 resolved [facility] Work Phone: [phone]) 255-605411-25-2006 Evaluation note* Diagnosis Onset Date Resolution Status Near syncope acute Shortness of breath acute Essential (primary) hypertension chronic History of coronary artery stent placement September 092005 resolved [facility] Work Phone: Chief complaint+Reason for visit Narrative* Chief Complaint 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 Kem Davila MD Status:REG ER Location: ED HPI History of Present Illness Chief Complaint: Shortness of Breath Narrative Narrative: Chief complaint and HPI: 74-year-old male with past medical history of CAD status post bare-metal stenting to the proximal LAD in 2005, HTN, HLD presents for evaluation of exertional shortness of breath. Patient states for the past several months he has been having exertional dyspnea with walking up inclines. He saw his protection analyst in April but did not inform him of this information. Patient states yesterday he walked up the incline in which he got short of breath. States he sat down. Developed a episode of involuntary muscle sheron/shaking. Was not a seizure as he states he was awake and aware. States it lasted several seconds and then resolved. States shortly after he felt mildly lightheaded but this quickly resolved. Triage note states weakness however he denies this to me. Currently asymptomatic. He denies any fever, chills, chest pain, shortness of breath at rest, bilateral lower extremity swelling, abdominal pain, nausea, vomiting, dysuria, recent travel or surgery. Review of systems: See HPI Medications: As listed on the chart Allergies: As listed on the chart PFSH: Per chart Vital signs: As listed on the chart. Reviewed. Physical exam: Gen: A&O x3, NAD Head: Normocephalic, atraumatic Eyes: No sclera icterus, conjunctiva clear ENT: Moist mucous membranes Neck: Trachea midline, No JVD CV: RRR, no murmurs, no peripheral edema Resp: Lungs CTA BL, no w/r/c GI: Abd soft, non-distended, non-tender, no r/r/g Musc: Full ROM, no deformity, strength +5/5 in all extremities Skin: Warm, dry Neuro: Alert, oriented, grossly intact, sensation intact Psych: Cooperative, appropriate mood and affect [facility] Medical History Gout Near syncope Urinary tract infection Obesity History of non-ST elevation myocardial infarction (NSTEMI) (09/09/06) Essential (primary) hypertension Hernia Hyperlipidemia Atherosclerotic heart disease of [place] coronary artery without angina pectoris Home Medications ?Medication ?Instructions ?Recorded ?Last Taken ?Type aspirin 81 mg chewable tablet 81 mg PO DAILY@0800 05/2 12/31 Unknown Rx blood-glucose meter #1 ea 11/10/22 Unknown Rx blood sugar diagnostic (Blood #50 ea 12/12/23 Unknown Rx Glucose Test strips) lancets 31 gauge #100 ea 12/12/23 Unknown Rx nitroglycerin 0.4 mg sublingual 0.4 mg sublingual Q5-1 5M PRN 12/12/23 Unknown Rx tablet Cardiac/Chest Pain #30 tabs lancets 28 gauge (Comfort EZ #100 ea 06/03/24 Unknown Rx Lancets) atorvastatin 80 mg tablet (Lipitor) 80 mg PO QHS ROBERT STEROL #90 tabs 11/25/24 Unknown Rx escitalopram oxalate 20 mg tablet 20 mg PO DAILY #90 t abs 11/25/24 Unknown Rx finasteride 5 mg tablet (Proscar) 5 mg PO DAILY #90 ta bs 11/25/24 Unknown Rx losartan 50 mg tablet 50 mg PO DAILY #90 tabs 11/16 Unknown Rx tamsulosin 0.4 mg capsule 0.4 mg PO DAILY #90 caps 08/09 Unknown Rx metoprolol succinate 25 mg 25 mg PO QDAY HEART/BP #90 tabs 02/21/25 Unknown Rx tablet,extended release 24 hr omeprazole 40 mg capsule,delayed 40 mg PO QHS GERD #90 caps 03/11/25 Unknown Rx release biotin 5 mg capsule 5 mg PO QDAY 05/12/25 Unknow n History calcium 333 mg-vit D3 200 1 tab PO QDAY 05/12/25 Unkno wn History unit-magnesium 133 mg-zinc 5 mg tablet lactobacillus combination no.9 4 4,000 mmu cells PO QD AY 05/12/25 Unknown History billion cell capsule (Adult 50 Plus Probiotic) prevagen 1 cap PO QDAY 05/12/25 Unkno wn History total beets 3 tab PO QDAY 05/12/25 Unkno wn History Allergy/AdvReac Type Severity Reaction Status Date / Time No Known Allergies Allergy Verified 05/12/25 15:05 Family History Father Myocardial infarction CAD (coronary artery disease) Mother Hx of CABG CAD (coronary artery disease) Brother Hypertension Brother Hypertension Surgical History Cataract extraction status H/O wrist surgery History of back surgery History of herniorrhaphy History of knee replacement (2017) History of left heart catheterization (11/27/17) H/O knee surgery History of coronary artery stent placement (09/09/06) Social History household members: spouse current occupational status: employed 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 [employer] Smoking Status: Never smoker Electronic Cigarette Use: not used alcohol intake: never substance use type: does not use caffeine: Yes Type: coffee Number of servings: 3 what type of physical activity do you participate in: none seatbelt use: always do you feel safe at home: Yes EXAM Physical Exam Const Vital Signs: 05/19/25 08:55 05/19/25 11:11 Temperature 97.1 F L Temperature Source Temporal Pulse Rate 58 L 46 L Respiratory Rate 14 19 H Blood Pressure 134/83 H 144/81 H Blood Pressure Mean 100 102 Pulse Ox 97 97 Oxygen Delivery Method Room Air MDM MDM MDM Narrative Medical decision making narrative: 74-year-old male with past medical history of CAD status post bare-metal stenting to the proximal LAD in 2005, HTN, HLD presents for evaluation of chronic exertional shortness of breath. Patient states for the past several months he has been having exertional dyspnea with walking up inclines. He saw his protection analyst in April but did not inform him of this information. Patient states yesterday he walked up the incline in which he got short of breath. States he sat down. Developed a episode of involuntary muscle sheron/shaking and lightheadedness that quickly resolved. Currently asymptomatic. Differential diagnosis includes but is not limited to CHF, electrolyte abnormality, dehydration, hyperventilation episode, low suspicion for ACS or PE, UTI. On chart review, patient was seen in the cardiology office on 05/12/2025. His last echocardiogram was from 2021 that showed left ventricular systolic function normal. EF 55%. Stage II diastolic dysfunction. He had a stress test in 2021 with no obvious ischemia. His last cardiac cath [id number] showed mild CAD with no high- grade obstructive disease. Laboratory workup ordered including chest x-ray. CBC without leukocytosis or anemia. BMP shows mild renal insufficiency with a creatinine of 1.21. No significant electrolyte abnormality. BNP unremarkable. Troponin unremarkable. Patient not having chest pain. D-dimer negative for age. UA negative for UTI. At this point in time, no clear etiology to explain patient's chronic exertional shortness of breath as well as his episode yesterday. Recommend following up with cardiologyand PCP. Him and his are updated on the results and confirmed understand the plan. Patient stable to discharge home. EKG: Interpreted by me/EM physician: Sinus bradycardia without any acute ischemic changes. Heart rate 76. Patient is on beta-malcolm. Diagnostic: Interpreted by me/EM physician: Chest x-ray without pneumonia, effusion, cardiomegaly, pneumothorax. Radiology in agreement. Impression: 1. Chronic exertional dyspnea 2. Episode of lightheadedness and muscle contraction, resolved 3. Mild renal insufficiency Lab Data Labs: Laboratory Results - last 24 hr 05/19/25 05/19/25 09:16 10:28 WBC 7.7 RBC 4.27 L Hgb 13.0 Hct 39.8 L MCV 93.2 MCH 30.4 MCHC 32.7 RDW Std Deviation 45.6 H RDW Coeff of Kristen 13.4 Plt Count 220 MPV 10.7 Immature Gran % (Auto) 0.100 Neut % (Auto) 66.4 Lymph % (Auto) 19.0 [place] % (Auto) 11.5 H Eos % (Auto) 2.5 Baso % (Auto) 0.5 Absolute Neuts (auto) 5.1 Absolute Lymphs (auto) 1.47 Nucleated RBC % 0 Platelet Estimate ADEQUATE D-Dimer Quant (PE/DVT) 0.68 H* Sodium 140 Potassium 4.1 Chloride 106 Carbon Dioxide 22.8 Anion Gap 12 BUN 19 Creatinine 1.21 H Estim Creat Clear Calc 108.84 Est GFR (MDRD) Non-Af 64 BUN/Creatinine Ratio 16.0 Glucose 125 H Calcium 8.8 Troponin T High Sens 20 NT pro BNP II 226 Urine Color Yellow Urine Clarity Clear Urine pH 6.0 Ur Specific [place] 1.020 Urine Protein 30 H Urine Glucose (UA) Normal Urine Ketones Negative Urine Occult Blood Negative Urine Nitrite Negative Urine Bilirubin Negative Urine Urobilinogen Normal Ur Leukocyte Esterase 25 H Urine RBC 0 SEEN Urine WBC 0-5 SEEN Ur Squamous Epith Cells 0-5 SEEN Urine Bacteria 0 SEEN Urine Mucus 0 SEEN Radiography Diagnostic Testing: Clinical Impression(s) from Imaging Studies Chest X-Ray 05/19/25 09:30 IMPRESSION: NO ACUTE FINDINGS. Reading Location: [id number] Discharge Plan Triage Chief Complaint: Shortness of Breath ED Provider: Jayson Ellison Dx/Rx/DC Orders Prescriptions: No Action (DME) lancets [Comfort EZ Lancets] 28 gauge misc See Rx Instructions .Route Qty: 100 0RF Rx Instructions: As directed atorvastatin [Lipitor] 80 mg tablet 80 mg PO QHS Qty: 90 1RF escitalopram oxalate 20 mg tablet 20 mg PO DAILY Qty: 90 1RF finasteride [Proscar] 5 mg tablet 5 mg PO DAILY Qty: 90 1RF losartan 50 mg tablet 50 mg PO DAILY Qty: 90 1RF tamsulosin 0.4 mg capsule 0.4 mg PO DAILY Qty: 90 1RF calcium carb-D3-mag [id number] 333 mg-200 unit -133 mg-5 mg tablet 1 tab PO QDAY Rx Instructions: administer with a meal total beets 3 tab PO QDAY prevagen 1 cap PO QDAY biotin 5 mg capsule 5 mg PO QDAY Adult 50 Plus Probiotic 4 billion cell capsule 4,000 mmu cells PO QDAY Rx Instructions: administer with a meal aspirin 81 MG tablet,chewable 81 mg PO DAILY@0800 0RF (DME) blood-glucose meter Misc See Rx Instructions .Route Qty: 1 0RF Rx Instructions: use daily to monitor blood glucose (DME) Blood Glucose Test Strip See Rx Instructions .Route Qty: 50 3RF Rx Instructions: use daily to monitor blood glucose (DME) lancets 31 gauge misc See Rx Instructions .Route Qty: 100 0RF Rx Instructions: use daily to check blood glucose nitroglycerin 0.4 mg tablet, sublingual 0.4 mg SUBLINGUAL Q5-15M PRN (Reason: Cardiac/Chest Pain) Qty: 30 0RF metoprolol succinate 25 mg tablet extended release 24 hr 25 mg PO QDAY Qty: 90 0RF omeprazole 40 mg capsule,delayed release(DR/EC) 40 mg PO QHS Qty: 90 0RF Primary Care Provider: Kem Davila Referrals: Kem Davila MD [Primary Care Provider] - Print Language: French What to do if you have Problems For any increased pain, shortness of breath, bleeding, nausea or vomiting, chestpain, or any unexpected problems, contact your Primary Care Provider. Call [facility] ([phone]) or report to the closest Emergency Room. Call 911 if necessary. 05/19/25 1148 <Electronically signed by Jayson Ellison DO> Cosigner Signature (if applicable): CC: Dr. Kem Davila MD ~ Signed [facility] Work Phone: Evaluation note* Diagnosis Exocrine pancreatic insufficiency Other specified disease of pancreas documented in this encounter [facility] [place] noteNo assessment information availableWMercy Health [facility]iff[facility] Work Phone: evaluation note* Diagnosis Right hip pain- Primary Pain in joint, pelvic region and thigh Osteoarthritis of both hips, unspecified osteoarthritis type documented in this encounter [facility] Work Phone: Evaluation note* Diagnosis Acute midline low back pain with right-sided sciatica- Primary [facility]* Diagnosis Bilateral low back pain with sciatica, sciatica laterality unspecified, unspecified chronicity- Primary documented in this [facility]* Diagnosis Primary hypertension- Primary Unspecified essential hypertension Mixed hyperlipidemia Ischemic heart disease Chronic ischemic heart disease, unspecified Hx of myocardial infarction Old myocardial infarction Diabetes mellitus type II (HCC) Idiopathic gout, unspecified chronicity, unspecified site Anxiety Anxiety state, unspecified documented [facility] this [facility]* Diagnosis Preoperative clearance- Primary Preoperative examination, unspecified [facility]* Diagnosis 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)]- Primary Functional diarrhea [facility]* Diagnosis Cognitive impairment, mild, so stated- Primary Mild cognitive impairment, so stated Fall, initial encounter Gait disturbance Abnormality of gait Anxiety Anxiety state, unspecified Bilateral hearing loss, unspecified hearing loss type Impacted cerumen of left ear Impacted cerumen documented [facility] this [facility]* Diagnosis Cognitive impairment, mild, so stated Mild cognitive impairment, so stated [facility]* Diagnosis Cerebral infarction, unspecified mechanism (HCC)- Primary White matter abnormality on MRI of brain Nonspecific (abnormal) findings on radiological and other examination of skull and head documented [facility] this [facility]* Diagnosis Cognitive impairment, mild, so stated- Primary Mild cognitive impairment, so stated documented in this encounter [facility] [place] note* Diagnosis Onset Date Resolution Status Immunization due noneactive [facility] Work Phone: Evaluation note* Diagnosis Word finding difficulty- Primary Problems with communication (including speech) Gait disturbance Abnormality of gait Anxiety Anxiety state, unspecified documented in this encounter [facility] [place] note* Diagnosis Onset Date Resolution Status Admit Date Atherosclerotic heart diseas e of [place] coronary artery without angina pectoris chronic May 12, 2025 2:59pm Essential (primary) hypertension chr onic May 12, 2025 2:59pm Hyperlipidemia chronic May 12, 2025 2:59pm [facility] Work Phone: Hospital Discharge instructions* Instructions* Pedro Luis Diggs MD - 04/23/2022 Please follow-up with your specialist at [facility]. If the symptoms worsen or persist please return back to the emergency department. [facility] Work Phone: Hospital Discharge instructionsAdditional Instructions Follow-up with cardiology and primary care physician. Return back to ED if symptoms change or worsen.[facility] Work Phone: Reason for referral (narrative)No reason for referral information availableBlSierra Nevada [facility] Work Phone: Summary Purpose Family History Relationship Condition Age at Onset Recorded Date/T ivanna father Myocardial infarction Unknown Coronary artery disease Unknown mother History of coronary artery bypass surgery Unknown brother Hypertension Unknown Advance Directives Advance Directive Response Recorded Date/ Time Advance Directives No November 10:11am Living Will No December 19, 2021 3:28am Power of Magnetic Locater No December 19 3:28am Documents on File Type Date Recorded 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 Yes May 19, 2025 9:29am Advance Directives No November 10:11am Chief Complaint and Reason for Visit Chief Complaint Admit Date 1 Y FU May 12, 2025 2:59 pm DIZZINESS May 19, 2025 8:5 4am Reason for Visit Admit Date Atherosclerotic heart diseas e of [place] coronary artery without angina pectoris May 12, 2025 2:59pm Essential (primary) hypertension May 122024 2:59pm Hyperlipidemia May 12, 2025 2:59 pm Chief Complaint 1 Y FU - call home p maria luisa abd pain Z95.5 I25.10 I25.2/LEXISCAN Z95.5 I25.10 I25.2/LEXISCAN Reason for Visit Atherosclerotic hear t disease of [place] coronary artery without angina pectoris Essential (primary) hypertension Hyperlipidemia History of coronary artery stent placement Chief Complaint abd pain Z95.5 I25.10 I25.2/LEXISCAN Z95.5 I25.10 I25.2/LEXISCAN CELIAC PROFILE, CRP Chief Complaint Z95.5 I25.10 I25.2/L EXISCAN Z95.5 I25.10 I25.2/LEXISCAN CELIAC PROFILE, CRP SOB Chief Complaint CELIAC PROFILE, CRP SOB HOLTER FU- put on 7 DYSPNEA Reason for Visit Near syncope Shortness of breath Essential (primary) hypertension History of coronary artery stent placement Chief Complaint CELIAC PROFILE, CRP SOB HOLTER FU- put on 7 DYSPNEA POST OP Reason for Visit Near syncope Shortness of breath Essential (primary) hypertension History of coronary artery stent placement Chief Complaint Admit Date 1 Y FU May 12, 2025 2:59 pm Reason for Visit Admit Date Atherosclerotic heart diseas e of [place] coronary artery without angina pectoris May 12, 2025 2:59pm Essential (primary) hypertension May 122024 2:59pm Hyperlipidemia Tri 28th, 2025 2:59 pm Chief Complaint Admit Date 1 Y FU May 12, 2025 2:59 pm DIZZINESS May 19, 2025 8:5 4am Reason for Referral Specialty Diagnoses / Procedures Referred By Contac t Referred To Contact MR IMAGING Diagnoses Exocrine pancreatic insufficiency Procedures MRI PANCREAS FUNCTION WO/W IVCON MRI ABDOMEN W/O & W/CONTRAST MATERIAL Azam Oconnell MD [address] [place] [address] Mr Imaging Referral ID Status Reason Start Date Expiration Date V isits Requested Visits Authorized [id number] Closed Auto-Generate d Referral 12/15/2021 01/14/2023 1 1 Specialty Diagnoses / Procedures Referred By Contac t Referred To Contact [facility] Diagnoses Acute midline low back pain with right-sided sciatica Procedures CONSULT TO PHYSICAL THERAPY PHYSICAL THERAPY EVALUATION HIGH COMPLEX 45 MINS Ulices Taveras MD [address] [place] [address] [facility] [place] [address] [place] [address] Referral ID Status Reason Start Date Expiration Date Visits Requested Visits Authorized [id number] Authorized PCP Requested Referral Auto-Generate d Referral 04/25/2022 04/25/2023 99 99 Specialty Diagnoses / Procedures Referred By Contac t Referred To Contact Pain Management Diagnoses Bilateral low back pain with sciatica, sciatica laterality unspecified, unspecified chronicity Procedures CONSULT TO [facility]) Ulices Taveras MD [address] [place] [address] [address] Referral ID Status Reason Start Date Expiration Date Visits Requested Visits Authorized [id number] Ref Not Required PCP Requested Referral 04/28/2022 04/28/2023 1 1 Specialty Diagnoses / Procedures Referred By Contac t Referred To Contact [facility] Diagnoses Fall, initial encounter Gait disturbance Procedures CONSULT TO PHYSICAL THERAPY PHYSICAL THERAPY EVALUATION HIGH COMPLEX 45 MINS Emeli Hollins MD [address] [place] [address] [facility] [place] [address] [place] [address] Referral ID Status Reason Start Date Expiration Date Visits Requested Visits Authorized [id number] Authorized PCP Requested Referral Auto-Generate d Referral 10/31/2022 10/31/2023 99 99 Specialty Diagnoses / Procedures Referred By Contac t Referred To Contact MR IMAGING Diagnoses Cognitive impairment, mild, so stated Procedures MRI 3D POST PROCESSING 3D RENDERING W/INTERP&POSTPROC DIFF WORK STATION Emeli Hollins MD [address] [place] [address] Mr Imaging Referral ID Status Reason Start Date Expiration Date Visits Requested Visits Authorized [id number] Pending Review Auto-Generat ed Referral 10/31/2022 11/30/2023 1 1 Specialty Diagnoses / Procedures Referred By Contac t Referred To Contact MR IMAGING Diagnoses Cognitive impairment, mild, so stated Procedures MRI BRAIN W QUANT WO IVCON MRI BRAIN BRAIN STEM W/O CONTRAST MATERIAL Emeli Hollins MD [address] [facility] [place] [id number] Mr Imaging Referral ID Status Reason Start Date Expiration Date Visits Requested Visits Authorized [id number] Pending Review Auto-Generat ed Referral 10/31/2022 11/30/2023 1 1 Referral ID Status Reason Start Date Expiration Date V isits Requested Visits Authorized [id number] Closed Auto-Generate d Referral 10/31/2022 11/30/2023 1 1 Referral ID Status Reason Start Date Expiration Date V isits Requested Visits Authorized [id number] Closed Auto-Generate d Referral 10/31/2022 11/30/2023 1 1 Specialty Diagnoses / Procedures Referred By Contac t Referred To Contact MR IMAGING Diagnoses Cerebral infarction, unspecified mechanism (HCC) Procedures MRI BRAIN WO IVCON MRI BRAIN BRAIN STEM W/O CONTRAST MATERIAL Jay Miranda MD [address] [place] [address] Mr Imaging Referral ID Status Reason Start Date Expiration Date Visits Requested Visits Authorized [id number] Pending Review Auto-Generat ed Referral 12/09/2022 01/08/2024 1 1 Additional Source Comments (unrecognized sect ion and content) No Status Records FoundNo Status Records FoundNo Status Records FoundNo Status Records FoundNo Status Records FoundNo Status Records Found INFORMATION SOURCE (unrecogn ized section and content) DATE CREATED AUTHOR 10/20/2021 [facility] DATE CREATED AUTHOR AUTHOR'S ORGANIZ ATION 05/27/2022 [facility] DATE CREATED AUTHOR AUTHOR'S ORGANIZ ATION 06/10/2022 [facility] DATE CREATED AUTHOR AUTHOR'S ORGANIZ ATION 11/17/2023 [facility] DATE CREATED AUTHOR AUTHOR'S ORGANIZ ATION 05/24/2024 [facility] DATE CREATED AUTHOR AUTHOR'S ORGANIZ ATION 05/13/2025 [facility] Source Comments (unrecognize d section and content) In the event this informatio n is protected by the Federal Confidentiality of Alcohol and Drug Abuse Patient Records regulations: The Federal rules restrict any use of the information to criminally investigate or prosecute any alcohol or drug abuse patient.[facility] Healthcare[facility] the event this information is protected by the Federal Confidentiality of Alcohol and Drug Abuse Patient Records regulations: The Federal rules restrict any use of the information to criminally investigate or prosecute any alcohol or drug abuse patient.[facility] HealthcareIn the event this information is protected by the Federal Confidentiality of Alcohol and Drug Abuse Patient Records regulations: The Federal rules restrict any use of the information to criminally investigate or prosecute any alcohol or drug abuse patient.[facility] Healthcare[facility] the event this information is protected by the Federal Confidentiality of Alcohol and Drug Abuse Patient Records regulations: The Federal rules restrict any use of the information to criminally investigate or prosecute any alcohol or drug abuse patient.[facility] HealthcareIn the event this information is protected by the Federal Confidentiality of Alcohol and Drug Abuse Patient Records regulations: The Federal rules restrict any use of the information to criminally investigate or prosecute any alcohol or drug abuse patient.[facility] HealthcareIn the event this information is protected by the Federal Confidentiality of Alcohol and Drug Abuse Patient Records regulations: The Federal rules restrict any use of the information to criminally investigate or prosecute any alcohol or drug abuse patient.[facility] HealthcareIn the event this information is protected by the Federal Confidentiality of Alcohol and Drug Abuse Patient Records regulations: The Federal rules restrict any use of the information to criminally investigate or prosecute any alcohol or drug abuse patient.[facility] HealthcareIn the event this information is protected by the Federal Confidentiality of Alcohol and Drug Abuse Patient Records regulations: The Federal rules restrict any use of the information to criminally investigate or prosecute any alcohol or drug abuse patient.[facility] HealthcareIn the event this information is protected by the Federal Confidentiality of Alcohol and Drug Abuse Patient Records regulations: The Federal rules restrict any use of the information to criminally investigate or prosecute any alcohol or drug abuse patient.[facility] HealthcareIn the event this information is protected by the Federal Confidentiality of Alcohol and Drug Abuse Patient Records regulations: The Federal rules restrict any use of the information to criminally investigate or prosecute any alcohol or drug abuse patient.[facility] HealthcareIn the event this information is protected by the Federal Confidentiality of Alcohol and Drug Abuse Patient Records regulations: The Federal rules restrict any use of the information to criminally investigate or prosecute any alcohol or drug abuse patient.[facility] HealthcareIn the event this information is protected by the Federal Confidentiality of Alcohol and Drug Abuse Patient Records regulations: The Federal rules restrict any use of the information to criminally investigate or prosecute any alcohol or drug abuse patient.[facility] HealthcareIn the event this information is protected by the Federal Confidentiality of Alcohol and Drug Abuse Patient Records regulations: The Federal rules restrict any use of the information to criminally investigate or prosecute any alcohol or drug abuse patient.[facility] HealthcareIn the event this information is protected by the Federal Confidentiality of Alcohol and Drug Abuse Patient Records regulations: The Federal rules restrict any use of the information to criminally investigate or prosecute any alcohol or drug abuse patient.[facility] HealthcareIn the event this information is protected by the Federal Confidentiality of Alcohol and Drug Abuse Patient Records regulations: The Federal rules restrict any use of the information to criminally investigate or prosecute any alcohol or drug abuse patient.[facility] HealthcareIn the event this information is protected by the Federal Confidentiality of Alcohol and Drug Abuse Patient Records regulations: The Federal rules restrict any use of the information to criminally investigate or prosecute any alcohol or drug abuse patient.[facility] HealthcareIn the event this information is protected by the Federal Confidentiality of Alcohol and Drug Abuse Patient Records regulations: The Federal rules restrict any use of the information to criminally investigate or prosecute any alcohol or drug abuse patient.[facility] HealthcareIn the event this information is protected by the Federal Confidentiality of Alcohol and Drug Abuse Patient Records regulations: The Federal rules restrict any use of the information to criminally investigate or prosecute any alcohol or drug abuse patient.[facility] HealthcareIn the event this information is protected by the Federal Confidentiality of Alcohol and Drug Abuse Patient Records regulations: The Federal rules restrict any use of the information to criminally investigate or prosecute any alcohol or drug abuse patient.[facility] HealthcareIn the event this information is protected by the Federal Confidentiality of Alcohol and Drug Abuse Patient Records regulations: The Federal rules restrict any use of the information to criminally investigate or prosecute any alcohol or drug abuse patient.[facility] HealthcareIn the event this information is protected by the Federal Confidentiality of Alcohol and Drug Abuse Patient Records regulations: The Federal rules restrict any use of the information to criminally investigate or prosecute any alcohol or drug abuse patient.[facility] HealthcareIn the event this information is protected by the Federal Confidentiality of Alcohol and Drug Abuse Patient Records regulations: The Federal rules restrict any use of the information to criminally investigate or prosecute any alcohol or drug abuse patient.[facility] HealthcareIn the event this information is protected by the Federal Confidentiality of Alcohol and Drug Abuse Patient Records regulations: The Federal rules restrict any use of the information to criminally investigate or prosecute any alcohol or drug abuse patient.[facility] HealthcareIn the event this information is protected by the Federal Confidentiality of Alcohol and Drug Abuse Patient Records regulations: The Federal rules restrict any use of the information to criminally investigate or prosecute any alcohol or drug abuse patient.[facility] HealthcareIn the event this information is protected by the Federal Confidentiality of Alcohol and Drug Abuse Patient Records regulations: The Federal rules restrict any use of the information to criminally investigate or prosecute any alcohol or drug abuse patient.[facility] HealthcareIn the event this information is protected by the Federal Confidentiality of Alcohol and Drug Abuse Patient Records regulations: The Federal rules restrict any use of the information to criminally investigate or prosecute any alcohol or drug abuse patient.[facility] HealthcareIn the event this information is protected by the Federal Confidentiality of Alcohol and Drug Abuse Patient Records regulations: The Federal rules restrict any use of the information to criminally investigate or prosecute any alcohol or drug abuse patient.[facility] HealthcareIn the event this information is protected by the Federal Confidentiality of Alcohol and Drug Abuse Patient Records regulations: The Federal rules restrict any use of the information to criminally investigate or prosecute any alcohol or drug abuse patient.[facility] HealthcareIn the event this information is protected by the Federal Confidentiality of Alcohol and Drug Abuse Patient Records regulations: The Federal rules restrict any use of the information to criminally investigate or prosecute any alcohol or drug abuse patient.[facility] Reason for Visit (unrecogniz ed section and content) Reason Comments Received Outside Medical Records Reason Comments Patient Education Reason Comments Radiology MRI Specialty Diagnoses / Procedures Referred By Contac t Referred To Contact MR IMAGING Diagnoses Exocrine pancreatic insufficiency Procedures MRI PANCREAS FUNCTION WO/W IVCON MRI ABDOMEN W/O & W/CONTRAST MATERIAL Azam Oconnell MD [address] [place] [address] Mr Imaging Referral ID Status Reason Start Date Expiration Date V isits Requested Visits Authorized [id number] Closed Auto-Generate d Referral 12/15/2021 01/14/2023 1 1 Reason Comments Hip Pain Right hip pain, repo rts he was at [facility] and had an xray a few days ago which showed nothing was wrong and was given medication for arthritis which isn't helping pain Reason Comments Acute Visit hip pain-RT since We dnesday denies injury Reason Comments Orders pain management refe rral Reason Comments Follow Up cardiac, tunnel visi on Reason Comments Pre-Op Exam Surgical clearance f or laminectomy and fusion on 06/16/22 Reason Comments Established Patient Exocrine pancreatic insuffiency Reason Onset Date Comments Opened In Error 08/26/2022 Reason Comments Establish Care Reason Comments Radiology MRI Specialty Diagnoses / Procedures Referred By Contac t Referred To Contact MR IMAGING Diagnoses Cognitive impairment, mild, so stated Procedures MRI BRAIN W QUANT WO IVCON MRI BRAIN BRAIN STEM W/O CONTRAST MATERIAL Emeli Hollins MD [address] [place] [address] Mr Imaging Referral ID Status Reason Start Date Expiration Date V isits Requested Visits Authorized [id number] Closed Auto-Generate d Referral 10/31/2022 11/30/2023 1 1 Reason Comments Results Reason Comments Forms Reason Comments New Patient Evaluation Reason Comments Follow Up Reason Comments F/U 6 months Pt took meds Care Teams (unrecognized sec tion and content) Ccnp Relationship Specialty Start Date End Date Ulices Taveras PCP - General Family Practice 01/07/14 Ccnp Relationship Specialty Start Date End Date Ulices Taveras MD PCP - General Family Practice 01/07/14 Ccnp Relationship Specialty Start Date End Date Ulices Taveras MD PCP - General Family Practice 01/07/14 Ccnp Relationship Specialty Start Date End Date Ulices Taveras MD PCP - General Family Practice 01/07/14 Ccnp Relationship Specialty Start Date End Date Ulices Taveras PCP - General 11/20/18 Ccnp Relationship Specialty Start Date End Date Ulices Taveras MD PCP - General Family Practice 01/07/14 Ccnp Relationship Specialty Start Date End Date Ulices Taveras MD PCP - General Family Practice 01/07/14 Ccnp Relationship Specialty Start Date End Date Ulices Taveras MD PCP - General Family Practice 01/07/14 Ccnp Relationship Specialty Start Date End Date Ulices Taveras MD PCP - General Family Practice 01/07/14 Ccnp Relationship Specialty Start Date End Date Ulices Taveras MD PCP - General Family Practice 01/07/14 Ccnp Relationship Specialty Start Date End Date Ulices Taveras MD PCP - General Family Practice 01/07/14 Ccnp Relationship Specialty Start Date End Date Ulices Taveras MD PCP - General Family Practice 01/07/14 Ccnp Relationship Specialty Start Date End Date Ulices Taveras MD PCP - General Family Medicine 01/07/14 Ccnp Relationship Specialty Start Date End Date Ulices Taveras MD PCP - General Family Medicine 01/07/14 Ccnp Relationship Specialty Start Date End Date Ulices Taveras MD PCP - General Family Medicine 01/07/14 Ccnp Relationship Specialty Start Date End Date Ulices Taveras MD PCP - General Family Medicine 01/07/14 Ccnp Relationship Specialty Start Date End Date Ulices Taveras MD PCP - General Family Medicine 01/07/14 Ccnp Relationship Specialty Start Date End Date Ulices Taveras MD PCP - General Family Medicine 01/07/14 Ccnp Relationship Specialty Start Date End Date Ulices Taveras MD PCP - General Family Medicine 01/07/14 Ccnp Relationship Specialty Start Date End Date Ulices Taveras MD PCP - General Family Medicine 01/07/14 Ccnp Relationship Specialty Start Date End Date Ulices Taveras MD PCP - General Family Medicine 01/07/14 Team Status: Active Member Role Status Dates Ulices Taveras [facility] Family Provider Active Dr. Kem Davila MD Primary Care Provider Active Team Status: Inactive Member Role Status Dates Dr. Kem Davila MD Primary Care Pro vider, Attending Provider, Referring Provider Active Team Status: Inactive Member Role Status Dates Dr. Kem Davila MD Primary Care Provider Active Dr. Jeaneth Guillaume MD Emergency Provider Active Ccnp Relationship Specialty Start Date End Date Kem Davila MD [address] [place] [address] PCP - General Internal Medicine 10/18/22 Joseph Link APRN.PRINT DESIGNER [address] [place] [address] Cardiology 07/18/23 Tian Campbell MD [address] [place] [address] Gastroenterology 07/18/23 Team Status: Active Member Role/Relationship Status Dates Ulices OLEA Family Provider Active Dr. Kem Davila MD Primary Care Provider Active Team Status: Inactive Member Role/Relationship Status Dates Dr. Kem Davila MD Primary Care Provider Active Start: May 12, 2025 End: May 12, 2025 Dr. Kem Davila MD Referring Provider Active Start: May 12, 2025 End: May 12, 2025 Joseph Link JACK SETTER, JACK SETTER-C Attending Provider Active S tart: May 12, 2025 End: May 12, 2025 Team Status: Active Member Role/Relationship Status Dates Dr. Kem Davila MD Primary Care Provider Active Team Status: Inactive Member Role/Relationship Status Dates Dr. Kem Davila MD Primary Care Provider Active Start: May 19, 2025 End: May 19, 2025 Dr. Jayson Ellison DO Emergency Provider Activ e Start: May 19, 2025 End: May 19, 2025 Goals (unrecognized section and content) Goals may be documented in a n alternate sectionGoals may be documented in an alternate sectionGoals may be documented in an alternate sectionGoals may be documented in an alternate sectionGoals may be documented in an alternate sectionGoals may be documented in an alternate sectionGoals may be documented in an alternate sectionGoals may be documented in an alternate section Ordered Prescriptions (unrec ognized section and content) Prescription Sig Dispensed Refills Start Date End Da te cyclobenzaprine (FLEXERIL) 5 MG tablet Take 1 tablet by mouth 2 times daily as needed for Muscle spasms 10 tablet 0 04/23/2022 05/03/2022 Scheduled Active and Recently Administ ered Medications (unrecognized section and content) Medication Order 04/21/2022 04/22/2022 04/23/2022 cyclobenzaprine (FLEXERIL) tablet 5 mg (COMPLETED) 5 mg, Oral, ONCE, 1 dose, On 04/23/22 at 1145 1144 (Given - Provid er: Gabriel Cheatham LPN) ketorolac (TORADOL) injection 15 mg (COMPLETED) Ketorolac is contraindicated in patients with advanced renal impairment and in patients at risk of renal failure due to volume depletion. For 65 years of age and older OR weight less than 50 kg, use 15 mg IV every 6 hours; MAX dose: 60 mg/day. Dose greater than 30 mg must be administered via intramuscular route. Do not administer for more than 5 days., 15 mg, IntraMUSCular, ONCE, 1 dose, On 04/23/22 at 1145, Do not administer for more than 5 days. 1146 (Given - Provid er: Gabriel Cheatham LPN) FOR RECORDS PERTAINING TO PATIENTS WHO ARE OR HAVE BEEN ENROLLED IN A CHEMICAL DEPENDENCY/SUBSTANCEABUSE PROGRAM, SOME INFORMATION MAY BE OMITTED. This clinical summary was aggregated from multiple sources. Caution should be exercised in using it in the provision of clinical care. This summary normalizes information from multiple sources, and as a consequence, information in this document may materially change the coding, format and clinical context of patient data. In addition, data may be omitted in some cases. CLINICAL DECISIONS SHOULD BE BASED ON THE PRIMARY CLINICAL RECORDS. [employer] provides no warranty or guarantee of the accuracy or completeness of information in this document.
== END 2025-05-19 12:04 | disposition home or self-care (01) ==
PROVIDERS: Emergency Provider Surgery; PCP Internal Medicine; Visit Provider Surgery
DX: R06.09 Other forms of dyspnea (principal); I25.10 Atherosclerotic heart disease of native coronary artery without angina pectoris; I10 Essential (primary) hypertension; E78.5 Hyperlipidemia, unspecified; N28.9 Disorder of kidney and ureter, unspecified
CPT/HCPCS: 71046; 80048; 81001; 83880; 84484; 85025; 85379; 93005; 99284; A4216

== ENCOUNTER → 2025-05-21 | Outpatient (CLI) | payer MEDICARE, OTHER, SELFPAY ==
--- NOTE | 2025-05-21 06:01 | ECHOD_ITS ---
Reason For Study : DYSPNEA Procedure This was a 2D Doppler, Color Flow transthoracic echocardiogram. Exam performed in department. Left Ventricle Normal LV size. Left ventricular systolic function is normal. The left ventricular ejection fraction is 65 %. No regional wall motion abnormalities noted. Right Ventricle Normal RV size. Normal systolic function. Atria Normal left atrium. Normal right atrium. Bubble contrast study is negative for PFO/ASD. Mitral Valve Mild focal mitral valve calcification of the anterior leaflet. Tricuspid Valve Normal tricuspid valve. Aortic Valve Trisinus/trileaflet aortic valve. Great Vessels Normal aortic root. The pulmonary artery is normal size. Inferior vena cava collapse with respiration. Pericardium/Pleural No pericardial effusion. Medication 22 gauge I.V. with prn adaptor inserted into right arm. Performed a rapid injection of agitated mix of 9 cc saline and 1cc air to assess for atrial septal defect. MMode/2D Measurements & Calculations LVIDd: 5.5 cm IVSd: 1.00 cm LVOT diam: 2.3 cm LVIDs: 3.7 cm LVPWd: 1.00 cm LVOT area: 4.3 cm2 RVDd: 4.3 cm FS: 33.1 % asc Aorta Diam: 3.8 cm LAV(MOD-bp): 74.7 ml LVAd ap4: 32.9 cm2 LAV(MOD-bp) Indexed: 33.2 ml/m2 LVLd ap4: 8.9 cm LAV(MOD-sp2): 81.1 ml EDV(MOD-sp4): 99.4 ml LAV(MOD-sp4): 64.9 ml EDV(sp4-el): 103.3 ml LVAs ap4: 19.1 cm2 LVLs ap4: 7.9 cm ESV(MOD-sp4): 39.8 ml ESV(sp4-el): 39.0 ml EF(MOD-sp4): 60.0 % EF(sp4-el): 62.2 % LVAd ap2: 37.2 cm2 SV(MOD-sp4): 59.7 ml SV(MOD-sp2): 71.5 ml LVLd ap2: 9.2 cm SI(MOD-sp4): 26.5 ml/m2 SI(MOD-sp2): 31.8 ml/m2 EDV(MOD-sp2): 127.4 ml EDV(sp2-el): 127.1 ml LVAs ap2: 22.2 cm2 LVLs ap2: 8.0 cm ESV(MOD-sp2): 55.9 ml ESV(sp2-el): 52.6 ml EF(MOD-sp2): 56.1 % SV(sp4-el): 64.3 ml Ao sinus diam: 4.[address] Junction: 3.3 cm LA dimension(2D): 4.3 cm LA A4 area: 22.0 cm2 RA A4 area: 18.8 cm2 TAPSE: 2.4 cm Time Measurements MV dec time: 0.22 sec Doppler Measurements & Calculations MV E max eliot: 76.0 cm/sec Lat Peak E' Eliot: 9.4 cm/sec Med Peak E' Eliot: 9.7 cm/sec MV A max eliot: 81.7 cm/sec E/E' lat: 8.1 E/E' med: 7.9 MV E/A: 0.93 MV dec slope: 345.1 cm/sec2 Ao V2 max: 160.9 cm/sec LV V1 max: 94.8 cm/sec Ao max P.4 mmHg LV V1 max P.6 mmHg Ao V2 mean: 113.2 cm/sec LV V1 mean P.0 mmHg Ao mean P.8 mmHg LV V1 mean: 66.8 cm/sec Ao V2 VTI: 38.8 cm LV V1 VTI: 22.1 cm AV (velocity ratio): 0.57 RITA(I,D): 2.5 cm2 RITA(V,D): 2.5 cm2 SV(LVOT): 95.1 ml PA V2 max: 85.4 cm/sec TR max eliot: 226.2 cm/sec TR max P.5 mmHg ECHO/Echo Complete Interpretation Summary Normal LV size. Left ventricular systolic function is normal. The left ventricular ejection fraction is 65 %. Bubble contrast study is negative for PFO/ASD. Ordering Physician: Joseph Link Referring Physician: Joseph Link Performed By: Dinora Aceves RDCS
--- OUTSIDE RECORDS SUMMARY | 2025-05-21 06:04 | XMS RPT_ITS | CCD ---
Author Organization [facility] Care Team Providers Care President + Publisher Name Role Phone Suha DRAKE, Maricel Roblero Unavailable Unavailable Carrie Josue Unavailable Carrie Josue Unavailable Carrie Josue Unavailable Ulices Taveras Primary Care Provider Ulices Taveras Primary Care Provider UnavailUlices Wylie Referring Provider Unavailable Roof [employer], [employer] Joseph Tomlinson Attending Provider Roof [employer], [employer] Joseph Tomlinson Other Provider Dr. Baldev Freed Attending Provider Ulicse Taveras MD Primary Care Provider Ulices Taveras Primary Care Provider UnavailUlices Wylie Primary Care Provider Ulices Taveras MD Primary Care Provider Ulices Taveras Primary Care Provider UnavailUlices Wylie Referring Provider Unavailable Dr. Baldev Freed Attending Provider Ulices Taveras MD Primary Care Provider Ulices Taveras MD Primary Care Provider Dr. Kem Davila Primary Care Provider Dr. Kem Davila Attending Provider [phone] Dr. 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 Fonseca Primary Care Provider [phone] Lola DIAZ, Dr. Fonseca Referring Provider Nikolay [employer]CJoseph Attending Provider [phone] Scot PATE, Dr. Tyler Emergency Provider Lola, Kem Referring Unavailable [place], Kem Primary Care Unavailable Roof LEONEL, Joseph Tomlinson Attending Unavailable Lola, Kem Referring Unavailable Anna Palomares Attending Unavailable Lola, Kem Primary Care Unavailable Lola, Kem Primary Care Unavailable Jayson Ellison Attending Unavailabl e [place], Kem Referring Unavailable [place], Kem Primary Care Unavailable [place], Kem Attending Unavailable Lola, Kem Referring Unavailable Lola, Kem Primary Care Unavailable Roof [employer], Joseph Tomlinson Attending Unavailable Medications Current Medications Medication Drug Class(es) Dates [...] TABS One tablet by mouth daily ASPIRIN [id number] Yee M Larry Comment on above: Take 1 tablet by lesly th once daily. biotin 5 mg oral capsule (6 sources) Start: 05-12-2025 take 1 capsule by mouth once daily Biotin 5 mg capsule Active 5 mg PO daily May 12, 2025 12:00am BIOTIN ORAL Take by mouth [...] to monitor blood glucose Blood-Glucose Meter misc (6 sources) Start: 11-10-2022 Blood-Glucose Meter misc Active [...] daily to monitor blood glucose Calcium Carb-D3-Mag [id number] 333 mg-200 unit -133 mg-5 mg tablet (3 sources) Start: 05-12-2025 Calcium Carb-D3-Mag [id number] 333 mg-200 unit -133 mg-5 mg tablet [...] by mouth. finasteride 5 mg oral tablet (15 sources) 5-alpha Reductase Inhibitor Start: 08-14-2024 End: 11-25-2024 take 1 tablet by mouth once daily Finasteride (Proscar) 5 mg tablet Active 5 mg PO DAILY 90 November 25, 2024 12:53pm Start: 12-04-2023 End: 06-03-2024 take 1 tablet by mouth once daily Finasteride (Proscar) 5 mg tablet Discontinued 5 mg PO DAILY 90 February 09, 2024 12:18pm June 03, 2024 2:10pm Lactobacillus Combination No.9 (Adult 50 Plus Probiotic) 4 billion cell capsule (3 sources) Start: 05-12-2025 take 4 capsules by [...] Comment on above: Take 2 tablets by [facility] once daily for 7 days. prevagen (3 sources) Start: 05-12-2025 prevagen Activ e 1 NMA PO daily May 12, 2025 12:00am tamsulosin hydrochloride 0.4 mg oral capsule (20 sources) alpha-Adrenerg ic Malcolm Start: 07-18-2024 End: 11-25-2024 take 1 capsule by mouth once daily Tamsulosin 0.4 mg capsule Active 0.4 mg PO DAILY 90 November 25, 2024 12:54pm Start: 10-22-2020 End: 06-03-2024 take 1 capsule by mouth once daily Tamsulosin 0.4 mg capsule Discontinued 0.4 mg PO DAILY 90 December 12, 2023 4:10pm June 03, 2024 [...] mg by mouth once daily. total beets (3 sources) Start: 05-12-2025 total beets Ac tive 3 {tbl} PO daily May 12, 2025 12:00am Completed/Discontinued Medications Medication Drug Class(es) Dates Sig (Normalized) Sig (Original) 8 hr acetaminophen 650 mg extended release oral tablet (18 sources) Start: 10-25-2021 End: 02-08-2024 take 3 [...] Discontinued 80 mg PO AT BEDTIME 90 December 12, 2023 4:09pm November 25, 2024 12:54pm CHOLESTEROL Start: 12-20-2011 take 1 tablet by lesly th once daily ATORVASTATIN CALCIUM 40 MG TABS One tablet by mouth daily ATORVASTATIN CALCIUM [id number] Baldev Freed MD Comment on above: Take by mouth. Take 1 tablet by lesly th once daily. TAKE 1 TABLET BY LESLY TH EVERY DAY azithromycin 250 mg oral tablet (5 sources) Macrolide Antimicrobial Start: 10-20-2023 End: 05-13-2024 [...] completed) Blood-Glucose Meter (Advanced Glucose Meter) misc (4 sources) Start: 11-03-2022 End: 11-10-2022 Blood-Glucose Meter (Advanced Glucose Meter) misc Discontinued 0 .Route 1 November 03, 2022 1:00am November 10, 2022 11:48am Diet-controlled diabetes mellitus Type 2 diabetes mellitus without complications As directed Start: 11-03-2022 End: 11-10-2022 Blood-Glucose Meter (Advance d Glucose Meter) misc Discontinued 0 .Route 1 November 03, 2023 12:00am November 10, 2022 10:48am As directed ciprofloxacin 500 mg oral tablet (9 sources) Quinolone Antimicrobial Start: 09-19-2019 End: 10-22-2020 [...] tablet Discontinued 75 mg PO AT BEDTIME 0 March 07, 2018 12:00am August 23, 2018 10:21am Comment on above: Take 1 tablet by lesly th once daily. escitalopram 20 mg oral tablet (20 sources) Serotonin Reuptake Inhibitor Start: 12-04-2018 End: 11-25-2024 take 1 tablet by mouth once daily Escitalopram Oxalate 20 mg tablet Discontinued 20 mg PO DAILY 90 July 02, 2024 12:34pm November 25, 2024 12:54pm Comment on above: Take 20 mg by mouth. Take 1 tablet by lesly th once daily. esomeprazole 40 mg delayed release oral capsule (4 sources) Proton Pump Inhibitor Start: 05-18-2011 take 1 tablet by mouth once daily NEXIUM 40 MG CPDR One tablet by mouth daily ESOMEPRAZOLE MAGNESIUM [id number] Yee Larry Start: 05-18-2011 take 1 tablet by lsely th once daily NEXIUM 40 MG CPDR One tablet by mouth daily ESOMEPRAZOLE MAGNESIUM [id number] Yee Larry hydroCHLOROthiazide 12.5 mg / losartan [...] One tablet by mouth daily VALSARTAN-HYDROCHL OROTHIAZIDE [id number] [facility] Start: 01-04-2011 take 1 tablet by [facility] once daily DIOVAN HCT 80-12.5 MG TABS One tablet by mouth daily VALSARTAN-HYDROCHLOROTHIAZIDE [id number] [facility] indomethacin 50 mg oral capsule (20 sources) [...] on above: TAKE 1 CAPSULE BY MO [facility] TWICE A DAY NEEDED 1 ml [...] 1/2 tablet 2 X daily METOPROLOL TARTRATE [id number] Yee Larry Comment on above: Take by mouth. Take 1 tablet by lesly th once daily. TAKE 1 TABLET BY LESLY TH EVERY DAY 24 hr mirabegron 25 mg extended release oral tablet (3 sources) beta3-Adrenergic Agonist Start: 5 End: 5 take 1 tablet by mouth once daily Mirabegron (Myrbetriq) 25 mg tablet extended release 24 hr Discontinued 25 mg PO daily 30 November 26, 2024 1:00am May 12, 2025 3:10pm morphine sulfate 15 mg extended release oral tablet (9 sources) Opioid Agonist Start: 8 End: 8 [...] One tablet by mouth daily NIACIN (ANTIHYPERLIPIDEMIC) [id number] Baldev Freed MD Start: 05-18-2011 End: 04-24-2012 take 1 tablet by mouth once daily NIASPAN 1000 MG CR-TABS One tablet by mouth daily NIACIN (ANTIHYPERLIPIDEMIC) [id number] Baldev Freed MD Start: 01-04-2011 End: 04-24-2012 SLO-NIACIN 500 MG CR-TABS 2 tablets at bedtime EMACIN [id number] Baldev Freed MD Start: 01-04-2011 End: 04-24-2012 SLO-NIACIN 500 MG CR-TABS 2 tablets at bedtime NIACIN [id number] Baldev Freed MD nitroglycerin 0.4 mg sublingual [...] 5 min up to 3 X NITROGLYCERIN [id number] Yee Larry Comment on above: Nitroglycerin Active [...] One tablet by mouth daily OMEPRAZOLE MAGNESIUM [id number] Yee Larry Start: 01-04-2011 End: 04-24-2012 take 1 tablet by mouth once daily PRILOSEC OTC 20 MG TBEC One tablet by mouth daily OMEPRAZOLE MAGNESIUM [id number] Yee Larry Comment on above: Take 40 mg by mouth once daily. Take 1 capsule by [facility] once daily. oxyCODONE hydrochloride 5 mg oral tablet (9 sources) Opioid Agonist Start: 018 End: 018 take 5-10 mg by mouth every six hours as needed for pain Oxycodone 5 MG tablet Discontinued 5 - 10 mg PO EVERY 6 HOURS NEEDED as needed for Mod-Severe Pain (4-10) 60 7 0 March 07, 2018 12:15pm August 23, 2018 10:21am Acute postoperative pain of left knee Other acute postprocedural pain pregabalin 25 mg oral capsule (15 sources) Start: 022 End: 024 pregabalin (LYRICA) 25 mg capsule once daily. 0 07/19/2022 05/13/2024 Discontinued Comment on above: once daily. rosuvastatin calcium 40 mg oral tablet (4 sources) HMG-CoA Reductase Inhibitor Start: 011 take 1 tablet by mouth once daily CRESTOR 40 MG TABS One tablet by mouth daily ROSUVASTATIN CALCIUM [id number] Yee Larry secretin human, synthetic 0.016 mg [...] sources) Phosphodiesterase 5 Inhibitor Start: 011 End: take 1 tablet by mouth once daily VIAGRA 50 MG TABS One tablet by mouth daily SILDENAFIL CITRATE [id number] Yee Larry sour coelho allergenic extract (18 sources) Non-Standardized Food Allergenic Extract, Non-Standardized Plant Allergenic Extract Start: End: take 1 mg by mouth twice daily [...] [Anxiety disorder, unspecified] Onset: 07-01-2019 03-07-2022 Chronic Cardiac dysrhythmias (3 sources) Bradycardia; Translations: [Bradycardia, unspecified] Onset: 05-20-2025 05-20-2025 Episodic Chronic obstructive pulmonary disease and bronchiectasis (4 sources) Bronchitis; Translations: [Bronchitis, not specified as acute or chronic] 10-20-2023 Episodic Complication of device; implant or graft (8 sources) Atherosclerosis of coronary artery bypass graft(s) without angina pectoris; Translations: [Atherosclerosis of coronary artery bypass graft(s) without angina pectoris] Onset: 01-04-2011 01-04-2011 Chronic Coronary atherosclerosis and other heart disease (20 sources) Coronary atherosclerosis; Translations: [Coronary arteriosclerosis] Onset: 09-09-2006 01-04-2011 Chronic Comment on above: KAY-XZL-Rnkm LAD w/ 4.0 x 12 mm Liberte [...] Onset: 09-26-2017 03-07-2022 Chronic Hyperplasia of prostate (5 sources) Benign prostatic hyperplasia; Translations: [Benign prostatic hyperplasia without lower urinary tract symptoms] Onset: 11-25-2024 11-03-2022 Chronic Immunizations and screening for infectious disease (1 source) Encounter for immunization; Translations: [Need for prophylactic vaccination and inoculation against unspecified single disease] 08-28-2023 Episodic Mood disorders (20 sources) Depressive disorder; Translations: [Depression] Onset: 09-26-2017 03-07-2022 Chronic Nausea and vomiting (9 sources) Vomiting; Translations: [Vomiting, unspecified] 12-27-2021 Episodic Osteoarthritis (1 source) Osteoarthritis of bilateral hip joints; Translations: [Bilateral primary osteoarthritis of hip] Chronic Other ear and sense organ disorders (1 source) Bilateral hearing loss; Translations: [Unspecified hearing loss, bilateral] Chronic Other ear and sense organ disorders (1 source) Impacted cerumen in left ear; Translations: [Impacted cerumen, left ear] Episodic Other gastrointestinal disorders (9 sources) Constipation; Translations: [Constipation, unspecified] 12-27-2021 Episodic Other gastrointestinal disorders (5 sources) Obstipation; Translations: [Constipation, unspecified] 06-29-2022 Episodic Other gastrointestinal disorders (2 sources) Functional diarrhea; 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] Episodic Other hereditary and degenerative nervous system conditions (3 sources) Impaired cognition; Translations: [Mild cognitive impairment, so stated] Chronic Other lower respiratory disease (7 sources) Dyspnea; Translations: [Shortness of breath] 11-03-2022 Episodic Other lower respiratory disease (2 sources) Shortness of breath; Translations: [Shortness of breath] Episodic Other lower respiratory disease (3 sources) Dyspnea on exertion; Translations: [Other forms of dyspnea] 05-19-2025 Episodic Other lower respiratory disease (1 source) Other forms of dyspnea; Translations: [Other forms of dyspnea] Onset: 05-20-2025 Episodic Other male genital disorders (20 sources) Male erectile dysfunction, unspecified; Translations: [Impotence of organic origin] Onset: 05-06-2019 03-07-2022 Chronic Other nervous system disorders (5 sources) Post-surgery back pain; Translations: [Other acute [...] Episodic Other nutritional; endocrine; and metabolic disorders (6 sources) Obesity; Translations: [Obesity, unspecified] 05-11-2022 Chronic Other screening for suspected conditions (not mental disorders or infectious disease) (20 sources) Thallium stress test abnormal; Translations: [Abnormal result of other cardiovascular function study] Onset: 05-06-2019 03-07-2022 Episodic Pancreatic disorders (not diabetes) (5 sources) Exocrine pancreatic insufficiency; Translations: [Exocrine pancreatic insufficiency] Episodic Residual codes; unclassified (4 sources) Memory impairment; Translations: [Other amnesia] 11-03-2022 Episodic Spondylosis; intervertebral disc disorders; other back problems (2 sources) Acute back pain with sciatica; Translations: [Lumbago with sciatica, right side] Episodic Syncope (9 sources) Syncope; Translations: [Syncope and collapse] Episodic [...] aftercare (9 sources) Patient encounter status; Translations: [penitentiary (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 of insulin] Onset: 04-19-2012 03-07-2022 [...] Auto (Unsp spec) [#/Vol] 1.47 10*3/uL 0.83-4.51 [facility] Absolute neutrophil countOrd ered By: Jayson Ellison on 05-19-2025 Neutrophils (Bld) [#/Vol] 5.1 10*3/uL 2.0-7.7 [facility] Anion gap in Serum or Plasma Ordered By: Jayson Ellison on 05-19-2025 Anion gap [Moles/Vol] 12 mmol/L 02-27 [facility] Automated lymphocyte count a s percentage of total leukocytesOrdered By: Jayson Ellison on 05-19-2025 Lymphocytes/100 WBC Auto (Unsp spec) 19.0 % [facility] BUN/creatinine ratioOrdered By: Pomerene HospitalUsha on 05-19-2025 Urea nitrogen/Creatinine [Mass ratio] 16.0 mg/mg 08-04 [facility] Basic Metabolic Profile (BMP )on 05-19-2025 BUN/CRE 16.0 RATIO Normal 08-04 [facility] Comment on above: Performed By: #### L 500.2500, L503.7505, L300.8000, L100.0100 #### [facility] [address] [place], [address] Calcium [Mass/Vol] 8.8 mg/dL Normal 7.6-11.0 [facility] Comment on above: Performed By: #### L 500.2500, L503.7505, L300.8000, L100.0100 #### [facility] [address] [place], [address] Chloride [Moles/Vol] 106 mmol/L Normal 98-108 [facility] Comment on above: Performed By: #### L 500.2500, L503.7505, L300.8000, L100.0100 #### [facility] [address] [place], [address] CO2 [Moles/Vol] 22.8 mmol/L Normal 21.0-32.0 [facility] Comment on above: Performed By: #### L 500.2500, L503.7505, L300.8000, L100.0100 #### [facility] [address] [place], [address] Creatinine [Mass/Vol] 1.21 mg/dL High 0.70-1.20 [facility] Comment on above: Performed By: #### L 500.2500, L503.7505, L300.8000, L100.0100 #### [facility] [address] [place], [address] ECRCL 108.84 ml/min Normal 50-250 [facility] Comment on above: Performed By: #### L 500.2500, L503.7505, L300.8000, L100.0100 #### [facility] [address] [place], [address] GAP 12 Normal 5-15 [facility] Comment on above: Performed By: #### L 500.2500, L503.7505, L300.8000, L100.0100 #### [facility] [address] [place], [address] GFR/1.73 sq M.predicted among non-blacks MDRD (S/P/Bld) [Vol rate/Area] 64 mL/min/{1.73_m2} Normal >60 [facility] Comment on above: Result Comment: mL/m in/1.73m2 CKD-EPI Creatinine Equation (2020) Performed By: #### L 500.2500, L503.7505, L300.8000, L100.0100 #### [facility] [address] [place], [address] Glucose [Mass/Vol] 125 mg/dL High 70-99 [facility] Comment on above: Performed By: #### L 500.2500, L503.7505, L300.8000, L100.0100 #### [facility] [address] [place], [address] Potassium [Moles/Vol] 4.1 mmol/L Normal 3.3-5.1 [facility] Comment on above: Performed By: #### L 500.2500, L503.7505, L300.8000, L100.0100 #### [facility] [address] [place], [address] Sodium [Moles/Vol] 140 mmol/L Normal 133-145 [facility] Comment on above: Performed By: #### L 500.2500, L503.7505, L300.8000, L100.0100 #### [facility] [address] [place], [address] Urea nitrogen [Mass/Vol] 19 mg/dL Normal 4-19 [facility] Comment on above: Performed By: #### L 500.2500, L503.7505, L300.8000, L100.0100 #### [facility] [address] [place], [address] Basophil percentageOrdered B y: Jayson Ellison on 05-19-2025 Basophils/100 WBC (Bld) 0.5 % 0-1 [facility] Bilirubin Test strip Ql (U)O rdered By: Jayson Ellison on 05-19-2025 Bilirubin Ql (U) Negative Negative [facility] CBC W/Diff, Automatedon 08-0 PLT EST ADEQUATE Normal ADEQ [facility] Comment on above: Performed By: #### L 500.2500, L503.7505, L300.8000, L100.0100 #### [facility] [address] [place], [address] Carbon dioxide, total [Moles /volume] in Central venous bloodOrdered By: Jayson Ellison on 05-19-2025 CO2 [Moles/Vol] 22.8 mmol/L 21.0-32.0 [facility] Chest PA and Lateralon 05-19 Chest PA and Lateral [facility] [address] [place] [address] Chest PA and Lateral MR#: [id number] Acct: [id number] Name: RUSLAN STEPHENS Rep #: [id number] : 1950 M 74 From: Tung jenkins MD PCP: Dr. Kem Davila MD Status: REG ER Study: Chest PA and Lateral Date of Exam: 05/19/25 Exam# [id number] Ordering Dr: Jayson Ellison DO PROCEDURE: CHEST PA AND LATERAL 05/19/2025 REASON FOR EXAM: EXERTIONAL DYSPNEA TECHNIQUE: CHEST PA AND LATERAL COMPARISON: Prior study dated October 20, 2023. FINDINGS: Hardware: EKG electrodes are seen. Heart: The heart is nonenlarged. Mediastinum: The mediastinal contour is unremarkable. Lungs: The lungs are clear. Bones: The bones are unremarkable. RAD/Chest PA and Lateral IMPRESSION: NO ACUTE FINDINGS. Reading Location: [id number] CC: Dr. Kem Davila MD; Dr. Jayson Ellison DO Help Desk Team Leader: Signed Normal [facility] Chloride assayOrdered By: Dylon Ellison on 05-19-2025 Chloride [Moles/Vol] 106 mmol/L 98-108 [facility] D-Dimer Quantitative (DVT/PE )on 05-19-2025 D-DIMER QUANT 0.68 FEU/ug/m Invalid Interpretation Code 0.27-0.49 [facility] Comment on above: Result Comment: D-Di allan ELEVATED (>0.49): Additional studies and clinical assessments are indicated to conclude diagnosis of: Deep Vein Thrombosis (DVT) or Pulmonary Embolism (PE) CRITICAL VALUE CALLED TO FLORI DRAKE (ER) 05/19/25 0989 Zane Davis. RESULTS READ BACK BY SAME. Performed By: #### L 500.2500, L503.7505, L300.8000, L100.0100 #### [facility] [address] [place], [place], [id number] Emergency Department Summary on 05-19-2025 Emergency Department Summary [facility] Medical Records Department [address] [place] [address] Emergency Department Summary 05/19/25 MR#: [id number] Acct: [id number] Name: RUSLAN STEPHENS Rep #: [id number] : 1950 74 From: Jaysno Ellison DO PCP: Dr. Kem Davila MD Status:REG [...] with walking up inclines. 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 but did not inform him [...] on the chart. Reviewed. Physical exam: Gen: A O x3, NAD Head: Normocephalic, atraumatic Eyes: No [...] intact Psych: Cooperative, appropriate mood and [facility] (Reviewed 05/12/25 @ 15:33 by Joseph Link [employer], [employer]) Gout Near syncope Urinary tract infection Obesity History of non-ST elevation myocardial infarction (NSTEMI) (09/09/06) Essential (primary) hypertension Hernia Hyperlipidemia Atherosclerotic heart disease of [place] coronary artery without angina pectoris Home Medications ???Medication ???Instructions ???Recorded ???Last Taken ???Type aspirin 81 mg chewable tablet 81 mg PO DAILY@0800 03/07/18 Unkno wn Rx blood-glucose meter #1 ea 11/10/22 Unknown Rx blood sugar diagnostic (Blood #50 ea 12/12/23 Unknown Rx Glucose Test strips) lancets 31 gauge #100 ea 12/12/23 Unknown Rx nitroglycerin 0.4 mg sublingual 0.4 mg sublingual Q5-15M PRN 12/12 Unknown Rx tablet Cardiac/Chest Pain #30 tabs lancets 28 gauge (Comfort EZ #100 ea 06/03/24 Unknown Rx Lancets) atorvastatin 80 mg tablet (Lipitor) 80 mg PO QHS CHOLESTEROL #90 ta bs 11/25/24 Unknown Rx escitalopram oxalate 20 mg tablet 20 mg PO DAILY #90 tabs 11/25/24 Unknown Rx finasteride 5 mg tablet (Proscar) 5 mg PO DAILY #90 tabs 11/25/24 U nknown Rx losartan 50 mg tablet 50 mg PO DAILY #90 tabs 11/25/24 U nknown Rx tamsulosin 0.4 mg capsule 0.4 mg PO DAILY #90 caps 11/25/24 Unknown Rx metoprolol succinate 25 mg 25 mg PO QDAY HEART/BP #90 tabs Unknown Rx tablet,extended release 24 hr omeprazole 40 mg capsule,delayed 40 mg PO QHS GERD #90 caps 5 Unknown Rx release biotin 5 mg capsule 5 mg PO QDAY 05/12/25 Unknown Hist ory calcium 333 mg-vit D3 200 1 tab PO QDAY 05/12/25 Unknown His tory unit-magnesium 133 mg-zinc 5 mg tablet lactobacillus combination no.9 4 4,000 mmu cells PO QDAY 05/12/25 U nknown History billion cell capsule (Adult 50 Plus Probiotic) prevagen 1 cap PO QDAY 05/12/25 Unknown His tory total beets 3 tab PO QDAY 05/12/25 Unknown His tory Allergy/AdvReac Type Severity Reaction Status Date / Time No Known Allergies Allergy Verified 05/12/25 15:05 Family History (Reviewed 05/12/25 @ 15:33 by Joseph Link [employer], [employer]) Father Myocardial infarction CAD (coronary artery disease) Mother Hx of CABG CAD (coronary artery disease) Brother Hypertension Brother Hypertension Surgical History (Reviewed 05/12/25 @ 15:33 by Joseph Link [employer], [employer]) Cataract extraction status H/O wrist surgery History of back surgery History of herniorrhaphy History of knee replacement (2017) History of left heart catheterization (11/27/17) H/O knee surgery History of coronary artery stent placement (09/09/06) Social History (Reviewed 05/12/25 @ 15:33 by Joseph Link [employer], [employer]) household members: spouse current occupational status: employed c (more content not included)... Normal [facility] Eosinophil percentageOrdered By: Jayson Ellison on 05-19-2025 Eosinophils/100 WBC (Bld) 2.5 % 0-5 [facility] Erythrocyte distribution wid th ratioOrdered By: Jayson Scot on 05-19-2025 Erythrocyte distribution width (RBC) [Ratio] 13.4 % 11.6-14.6 [facility] Erythrocyte distribution wid th standard deviationOrdered By: Jayson Loving on 05-19-2025 Erythrocyte distribution width (RBC) [Ratio] 45.6 fl High 35.1-43.9 [facility] Glomerular filtration rate ( GFR) estimation/1.73 sq m using serum, plasma, or whole bOrdered By: Jayson Ellison on 05-19-2025 GFR/1.73 sq M.predicted among non-blacks MDRD (S/P/Bld) [Vol rate/Area] 64 mL/min/{1.73_m2} >60 [facility] Comment on above: mL/min/1.73m2 CKD-EP I Creatinine Equation (2020) Hematocrit Auto (Bld) [Volum e fraction]Ordered By: Jayson Ellison on 05-19-2025 Hematocrit (Bld) [Volume fraction] 39.8 % Low 40-54 [facility] Hemoglobin measurementOrdere d By: Jayson Ellison on 05-19-2025 Hemoglobin (Bld) [Mass/Vol] 13.0 g/dL 13.0-16.5 [facility] Immature granulocytes/100 WB C Auto (Bld)Ordered By: Jayson Ellison on 05-19-2025 Immature granulocytes/100 WBC (Bld) 0.100 % 0.0-0.9 [facility] Comment on above: IG% - Immature Granu locytes (promyelocytes, myelocytes and metamyelocytes) > 1% indicates that a LEFT SHIFT is Present. Ketones Test strip Ql (U)Ord ered By: Jayson Ellison on 05-19-2025 Ketones Ql (U) Negative Negative [facility] L501.4021on 05-19-2025 Trop T High Sen 20 ng/L Normal <=22 [facility] Comment on above: Performed By: #### L 501.4021 #### [facility] [address] [place] [address], [address] MCV (mean corpuscular volume ) determinationOrdered By: Jayson Ellison on 05-19-2025 MCV (RBC) [Entitic vol] 93.2 fL 80-94 [facility] Mean corpuscular hemoglobin (MCH) determinationOrdered By: Jayson Ellison on 05-19-2025 MCH (RBC) [Entitic mass] 30.4 pg 27.0-32.0 [facility] Mean corpuscular hemoglobin concentration (MCHC) determinationOrdered By: Jayson Ellison on 05-19-2025 MCHC (RBC) [Mass/Vol] 32.7 g/dL 32-36 [facility] Mean platelet volume determi nationOrdered By: Jayson Ellison on 05-19-2025 Platelet mean volume (Bld) [Entitic vol] 10.7 fL 6.2-12.0 [facility] Microscopic analysis of urin e for red blood cells (RBC)Ordered By: Jayson Ellison on 05-19-2025 Microscopic analysis of urine for red blood cells (RBC) 0 SEEN /hpf 0-5 [facility] Monocyte percentageOrdered B y: Jayson Ellison on 05-19-2025 Monocytes/100 WBC (Bld) 11.5 % High 0-10 [facility] [place] [facility] Mucus LM Ql (Urine sed)Order ed By: Jayson Ellison on 05-19-2025 Mucus Ql (Urine sed) 0 SEEN /hpf [facility] Natriuretic peptide.B prohor ora N-Terminal [Mass/volume] in Serum or PlasmaOrdered By: Jayson Ellison on 05-19-2025 Natriuretic peptide.B prohormone N-Terminal [Mass/Vol] 226 pg/mL <900 [facility] Comment on above: Heart Failure Unlike ly: < 300 pg/mLHeart Failure Likely< 50 Years: > 450 pg/mL50-75 Years: > 900 pg/mL>75 Years: > 1800 pg/mL Neutrophil percentageOrdered By: Jayson Ellison on 05-19-2025 Neutrophils/100 WBC (Bld) 66.4 % 47-70 [facility] Nitrite Test strip Ql (U)Ord ered By: Jayson Ellison on 05-19-2025 Nitrite Ql (U) Negative Negative [facility] Nucleated red blood cell per centageOrdered By: Jayson Ellison on 05-19-2025 Nucleated RBC/100 WBC (Bld) [Ratio] 0 % 0-5 [facility] Platelet countOrdered By: Dylon iel Scot on 05-19-2025 Platelets (Bld) [#/Vol] 220 10*3/uL 150-450 [facility] Platelet estimateOrdered By: Jayson Ellison on 05-19-2025 Platelets LM Ql (Bld) ADEQUATE ADEQ [facility] Potassium measurement (mass/ volume)Ordered By: Jayson Ellison on 05-19-2025 Potassium (Unsp spec) [Mass/Vol] 4.1 mmol/L 3.3-5.1 [facility] Pro- Brain NATRIURETIC PEPTI Jovani 05-19-2025 Natriuretic peptide B (Bld) [Mass/Vol] 226 pg/mL Normal <=900 [facility] Comment on above: Result Comment: Hear t Failure Unlikely: < 300 pg/mL Heart Failure Likely < 50 Years: > 450 pg/mL 50-75 Years: > 900 pg/mL >75 Years: > 1800 pg/mL Performed By: #### L 500.2500, L503.7505, L300.8000, L100.0100 ####[facility] [id number] [place], [address] Protein Test strip Ql (U)Ord ered By: Jayson Ellison on 05-19-2025 Protein Ql (U) 30 mg/dl High Negative [facility] RBC Auto (Bld) [#/Vol]Ordere d By: Jayson Ellison on 05-19-2025 RBC (Bld) [#/Vol] 4.27 10*6/uL Low 4.6-6.2 [facility] Serum creatinine measurement (mass/volume)Ordered By: Jayson Ellison on 05-19-2025 Creatinine [Mass/Vol] 1.21 mg/dL High 0.70-1.20 [facility] Serum glucose measurement (m ass/volume)Ordered By: Jayson Ellison on 05-19-2025 Glucose [Mass/Vol] 125 mg/dL High 70-99 [facility] Serum or plasma calcium caitlin urement (mass/volume)Ordered By: Jayson Loving on 05-19-2025 Calcium [Mass/Vol] 8.8 mg/dL 7.6-11.0 [facility] Serum or plasma urea nitroge n measurement (mass/volume)Ordered By: Jayson Ellison on 05-19-2025 Urea nitrogen [Mass/Vol] 19 mg/dL 4-19 [facility] Sodium levelOrdered By: Woody Ellison on 05-19-2025 Sodium [Moles/Vol] 140 mmol/L 133-145 [facility] Squamous epithelial cells de tection in urine sediment by light microscopyOrdered By: Jayson Ellison on 05-19-2025 Epithelial cells.squamous LM Ql (Urine sed) 0-5 SEEN /hpf 0-5 [facility] Troponin T HS 2 HRon 025 Trop T High Sen Normal <=22 [facility] Comment on above: Performed By: #### L 499.0042 #### [facility] [address] [place], [address] Troponin T.cardiac [Mass/vol ume] in Serum or Plasma by High sensitivity methodOrdered By: Jayson Ellison on 05-19-2025 Troponin T.cardiac High sensitivity method [Mass/Vol] 20 ng/L <22 [facility] Urinalysis, Completeon 05-19 EPI,SQUAMOUS 0-5 SEEN Normal 0-5 [facility] Comment on above: Order Comment: PALMA CTOR TO SPECIFY Performed By: #### L 400.0001 #### [facility] [address] [place], [address] WBC 0-5 SEEN Normal 0-5 [facility] Comment on above: Order Comment: PALMA CTOR TO SPECIFY Performed By: #### L 400.0001 #### [facility] [address] [place], [address] BACTERIA 0 SEEN Normal None Seen [facility] Comment on above: Order Comment: PALMA CTOR TO SPECIFY Performed By: #### L 400.0001 #### [facility] [address] [place], [address] Mucus Ql (Urine sed) 0 SEEN Normal [facility] Comment on above: Order Comment: PALMA CTOR TO SPECIFY Performed By: #### L 400.0001 #### [facility] [address] [place], [address] RBC 0 SEEN Normal 0-5 [facility] Comment on above: Order Comment: PALMA CTOR TO SPECIFY Performed By: #### L 400.0001 #### [facility] [address] [place], [address] Urine clarityOrdered By: Alvin Ellison on 05-19-2025 Clarity (U) Clear Clear [facility] Urine color determinationOrd ered By: Jayson Ellison on 05-19-2025 Color (U) Yellow Yellow [facility] Urine glucose detectionOrder ed By: Jayson Ellison on 05-19-2025 Glucose Ql (U) Normal mg/dl Normal [facility] Urine leukocyte esterase det ection by dipstickOrdered By: Jayson Ellison on 05-19-2025 Leukocyte esterase Test strip Ql (U) 25 /ul High Negative [facility] Urine pHOrdered By: Jayson Stanley on 05-19-2025 pH (U) 6.0 [pH] 5.0 - 8.0 [facility] Urine sediment bacteria coun t by microscopy (number/high power field)Ordered By: Jayson Ellison on 05-19-2025 Bacteria LM.HPF (Urine sed) [#/Area] 0 /[HPF] None Seen [facility] Urine specific gravity measu rementOrdered By: Jayson Ellison on 05-19-2025 Specific gravity (U) [Rel density] 1.020 1.002-1.030 [facility] Urine urobilinogen measureme ntOrdered By: Jayson Ellison on 05-19-2025 Urobilinogen Ql (U) Normal mg/dl Normal [facility] White blood cell (WBC) count Ordered By: Jayson Ellison on 05-19-2025 WBC (Bld) [#/Vol] 7.7 10*3/uL 4.4-11.0 [facility] White blood cell countOrdere d By: Jayson Ellison on 05-19-2025 White blood cell count 0-5 SEEN /hpf 0-5 [facility] Cardiology Visit Reporton Cardiology Visit Report [facility] [address] [place] [address] OFFICE VISIT Date of Service: 05/12/25 MR#: [id number] Acct: [id number] Name: RUSLAN STEPHENS Rep #: [id number] : 1950 Provider: LAMAR melo Age/Sex: 74/M Location: [facility] [place] Status: Signed HPI HPI History of Present Illness Details: RUSLAN STEPHENS, is a 74 M who presents to the office today for a follow-up visit.??? He is a gentleman with a history of coronary artery disease status post bare-metal stenting to the proximal left anterior descending artery in 2005 at [facility].??? 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 by: Is patient in [...] the past year?: No PFSH Medical History (Reviewed 05/12/25 @ 15:33 by Joseph Link [employer], [employer]) Gout Near syncope Urinary tract infection Obesity History of non-ST elevation myocardial infarction (NSTEMI) (09/09/06) Essential (primary) hypertension Hernia Hyperlipidemia Atherosclerotic heart disease of [place] coronary artery without angina pectoris Surgical History (Reviewed 05/12/25 @ 15:33 by Joseph Link [employer], [employer]) Cataract extraction status H/O wrist surgery History of back surgery History of herniorrhaphy History of knee replacement (2018) History of left heart catheterization (11/27/17) H/O knee surgery History of coronary artery stent placement (09/09/06) Family History (Reviewed 05/12/25 @ 15:33 by Joseph Link [employer], [employer]) Father Myocardial infarction CAD (coronary artery disease) Mother Hx of CABG CAD (coronary artery disease) Brother Hypertension Brother Hypertension Social History (Reviewed 05/12/25 @ 15:33 by Joseph Link [employer], [employer]) household members: spouse current occupational status: employed current occupation: [employer] Smoking Status: Never smoker Electronic Cigarette Use: not used a (more content not included)... Normal [facility] Internal Medicine Office Vis juve 11-21-2024 Internal Medicine Office Visit [facility] [address] [place] [address] OFFICE VISIT Date of Service: 11/25/24 MR#: [id number] Acct: [id number] Name: RUSLAN STEPHENS Rep #: [id number] : 1950 Provider: Dr. 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 Normal [facility] Internal Medicine Office Vis juve 06-03-2024 Internal Medicine Office Visit [facility] [address] [place] [address] [place] [address] OFFICE VISIT Date of Service: 06/03/24 MR#: [id number] Acct: [id number] Name: RUSLAN STEPHENS Rep #: [id number] : 1950 Provider: LAMAR mattson Age/Sex: 73/M Location: [facility] [place] Status: Signed Intake Vital Signs 12/04/23 14:44 [...] (Proscar) 5 mg PO DAILY #90 tabs 02/09/24 06/03/24 Rx lancets 28 gauge (Comfort EZ #100 ea 06/03/24 06/03/24 Rx Lancets) Have you fallen in the past year?: No PFSH Medical History Atherosclerotic heart disease of [place] coronary artery without angina pectoris Essential (primary) [...] take them (more content not included)... [facility] ([facility] ) RUSLAN STEPHENS ([id number]) 1950 M [facility] Date Time Provider Department 05/13/24 12:00 PM EMELI HOLLINS [facility] During your visit today, we recorded the [...] as appropriate. Please see relevant sections in epic EHR for details Current Medications (identify differences [...] No rest (more content not included)... Normal [facility] CBC + DIFFon 11-16-2023 Baso # 0.00 x10EE3/UL Normal 0.00 - 0.10 [facility] Comment on above: Performed By: #### 2 91394 #### [facility],[address] [place] [address]141 Basophils/100 WBC (Bld) 0.7 % Normal 0.0 - 2.0 [facility] Comment on above: Performed By: #### 2 64509 #### [facility],[address] [place] [address]0724 CBC + DIFF Normal [facility] Comment on above: Result Comment: CBC- COMPLETE BLOOD COUNT Performed By: #### 2 71272 #### [facility],[address] [place] [address]805 EO # 0.10 x10EE3/UL Normal 0.00 - 0.50 [facility] Comment on above: Performed By: #### 2 06928 #### [facility],[address] [place] [address] 20851 Eosinophils/100 WBC (Bld) 2.3 % Normal 0.0 - 7.0 [facility] Comment on above: Performed By: #### 2 78154 #### [facility],[address] [place] [address]309 Erythrocyte distribution width (RBC) [Ratio] 14.0 % Normal 12.0 - 15.6 [facility] Comment on above: Performed By: #### 2 77424 #### [facility],[address] [place] [address]3425 Hematocrit (Bld) [Volume fraction] 42.2 % Normal 40.0 - 52.0 [facility] Comment on above: Performed By: #### 2 56735 #### [facility],[address] [place] [address] Hemoglobin (Bld) [Mass/Vol] 14.1 g/dL Normal 13.0 - 17.5 [facility] Comment on above: Performed By: #### 2 71983 #### [facility],[address] [place] [address] Lymph # 0.90 x10EE3/UL Normal 0.80 - 2.80 [facility] Comment on above: Performed By: #### 2 35377 #### [facility],[address] [place], [place] [address] Lymphocytes/100 WBC (Bld) 15.9 % Low 20.0 - 45.0 [facility] Comment on above: Performed By: #### 2 76876 #### [facility],[address] [place] [address]6022 MANUAL DIFF N/A Normal [facility] Comment on above: Performed By: #### 2 98097 #### [facility],[address] [place], [place] [address] MCH (RBC) [Entitic mass] 30 pg Normal 27 - 33 [facility] Comment on above: Performed By: #### 2 12992 #### [facility],[address] [place] [address] 86045 MCHC 34 X10 3 Normal 32 - 36 [facility] Comment on above: Performed By: #### 2 03786 #### [facility],[address] [place] [address] 14232 MCV (RBC) [Entitic vol] 91 fL Normal 81 - 98 [facility] Comment on above: Performed By: #### 2 54034 #### [facility],[address] [place] [address] 20210 Jasper # 0.60 x10EE3/UL Normal 0.20 - 1.00 [facility] Comment on above: Performed By: #### 2 65100 #### [facility],[address] [place] [address] 22189 MONOS % 10.4 % High 0.0 - 10.0 [facility] Comment on above: Performed By: #### 2 75778 #### [facility],[address] [place] [address] 52430 Morphology Daniel (Bld) [Interp] N/A Normal [facility] Comment on above: Result Comment: {CD] Performed By: #### 2 65523 #### [address] [address] Neut # 4.00 x10EE3/UL Normal 1.50 - 7.10 [facility] Comment on above: Performed By: #### 2 94636 #### [facility],[address] [place] [address] 64432 Neutrophils/100 WBC (Bld) 70.7 % Normal 46.0 - 76.0 [facility] Comment on above: Performed By: #### 2 12555 #### [facility],[address] [place] [address] 24834 PLATELET 260 x10EE3/UL Normal 150 - 450 [facility] Comment on above: Performed By: #### 2 35541 #### [facility],[address] [place] [address] 45002 Platelet mean volume (Bld) [Entitic vol] 9.0 fL Normal 6.4 - 10.5 [facility] Comment on above: Result Comment: AUTO MATED DIFFERENTIAL Performed By: #### 2 82705 #### [facility],[address] [place] [address] 94688 RBC 4.66 x 10EE6/UL Normal 4.50 - 6.00 [facility] Comment on above: Performed By: #### 2 35341 #### [facility],[address] [place] [address] 63036 WBC 5.7 x 10EE3/UL Normal 4.5 - 10.8 [facility] Comment on above: Performed By: #### 2 61781 #### [facility],[address] [place], [place] [address] CMP with eGFRon 11-16-2023 AGE 73 years Normal [facility] Comment on above: Performed By: #### 2 49127 #### [facility],[address] [place] [address] 54249 Albumin [Mass/Vol] 3.7 g/dL Normal 3.4 - 5.0 [facility] Comment on above: Performed By: #### 2 92214 #### [facility],[address] [place] [address] Albumin/Globulin [Mass ratio] 1.0 {ratio} Normal 0.9 - 1.6 [facility] Comment on above: Performed By: #### 2 04688 #### [facility],[address] [place] [address] 64617 ALK PHOS 93 U/L Normal 46 - 116 [facility] Comment on above: Performed By: #### 2 29287 #### [facility],[address] [place] [address] 98662 ALT [Catalytic activity/Vol] 40 U/L Normal 16 - 63 [facility] Comment on above: Performed By: #### 2 97950 #### [address] [address] Anion gap [Moles/Vol] 15 mmol/L Normal 10 - 20 [facility] Comment on above: Performed By: #### 2 95878 #### [address] [address] AST [Catalytic activity/Vol] 32 U/L Normal 15 - 37 [facility] Comment on above: Performed By: #### 2 72506 #### [address] [address] B/C RATIO 23 ratio Normal 0 - 30 [facility] Comment on above: Performed By: #### 2 60163 #### [facility],[address] [place] [address] 43960 Bilirubin [Mass/Vol] 0.6 mg/dL Normal 0.2 - 1.0 [facility] Comment on above: Performed By: #### 2 99330 #### [facility],[address] [place] [address] 28933 Calcium [Mass/Vol] 9.1 mg/dL Normal 8.5 - 10.1 [facility] Comment on above: Performed By: #### 2 19261 #### [facility],[address] [place], [place] [address] Chloride [Moles/Vol] 107 mmol/L Normal 98 - 107 [facility] Comment on above: Performed By: #### 2 58003 #### [facility],[address] [place] [address] CMP with eGFR Normal [facility] Comment on above: Result Comment: COMP REHENSIVE METABOLIC PANEL Performed By: #### 2 41492 #### [facility],[address] [place] [address] 62754 CO2 [Moles/Vol] 26.2 mmol/L Normal 21.0 - 32.0 [facility] Comment on above: Performed By: #### 2 93138 #### [facility],[address] [place] [address] 62379 Creatinine [Mass/Vol] 1.00 mg/dL Normal 0.70 - 1.30 [facility] Comment on above: Performed By: #### 2 06388 #### [facility],[address] [place], [place] [address] GFR/1.73 sq M.predicted among non-blacks MDRD (S/P/Bld) [Vol rate/Area] mL/min/{1.73_m2} Normal 60 - 999 [facility] Comment on above: Performed By: #### 2 66534 #### [facility],[address] [place] [address] 72639 Result Comment: ACCO RDING TO THE NATIONAL KIDNEY DISEASE EDUCATION PROGRAM(NKDE), A NORMAL eGFR IS A VALUE GREATER THAN OR EQUAL TO 60 ML/MIN/1.73 SQ METERS. CHRONIC KIDNEY DISEASE: <60mL/MIN/1.73 SQ METERS KIDNEY FAILURE: <15mL/MIN/1.73 SQ METERS THIS TEST SHOULD ONLY BE USED FOR PATIENTS 18 YEARS OF AGE AND OLDER. Globulin (S) [Mass/Vol] 3.7 g/dL Normal 1.5 - 3.8 [facility] Comment on above: Performed By: #### 2 85278 #### [facility],[address] [place] [address] 07563 Glucose [Mass/Vol] 137 mg/dL High 74 - 106 [facility] Comment on above: Performed By: #### 2 39703 #### [facility],[address] [place] [address] 69958 Potassium [Moles/Vol] 4.6 mmol/L Normal 3.5 - 5.1 [facility] Comment on above: Performed By: #### 2 89024 #### [facility],[address] [place] [address] 10703 Protein [Mass/Vol] 7.4 g/dL Normal 6.4 - 8.2 [facility] Comment on above: Performed By: #### 2 55446 #### [facility],[address] [place] [address] 44469 Sodium [Moles/Vol] 144 mmol/L Normal 136 - 145 [facility] Comment on above: Performed By: #### 2 35579 #### [facility],[address] [place] [address] 44322 Urea nitrogen [Mass/Vol] 23 mg/dL High 7 - 18 [facility] Comment on above: Performed By: #### 2 83241 #### [facility],[address] [place] [address] 01298 HEMOGLOBIN A1C (POM)on 11-16 Glucose [Mass/Vol] 142.7 mg/dL High 0.0 - 0.0 [facility] Comment on above: Result Comment: BLDo HEMOGLOBIN A1C REFERENCE RANGESBLDo Suggested Diagnosis HbA1c(%) HbA1C (mmol/mol Diabetic >/=6.5 >/=48 Prediabetes 5.7 - 6.4 39 - 47 Normal <5.7 <39 Performed By: #### 2 49686 #### [facility],[address] [place] [address] 23642 HbA1c (Bld) [Mass fraction] 6.6 % High 0.0 - 6.5 [facility] Comment on above: Performed By: #### 2 12487 #### [facility],[address] [place] [address] 82589 LIPID PROFILEon 11-16-2023 Cholesterol [Mass/Vol] 122 mg/dL Normal 0 - 240 [facility] Comment on above: Performed By: #### 2 03675 #### [facility],[address] [place] [address] 05486 Cholesterol in HDL [Mass/Vol] 43 mg/dL Normal 40 - 60 [facility] Comment on above: Performed By: #### 2 93231 #### [facility],[address] [place] [address] 05757 Cholesterol in LDL [Mass/Vol] 68 mg/dL Normal 0 - 129 [facility] Comment on above: Performed By: #### 2 34195 #### [facility],[address] [place] [address] 97159 Cholesterol.total/Choles terol in HDL [Mass ratio] 2.8 {ratio} Normal 0.0 - 5.0 [facility] Comment on above: Performed By: #### 2 19037 #### [facility],[address] [place] [address] 08104 Lipid 1996 panel Normal [facility] Comment on above: Result Comment: LIPI D PROFILE Performed By: #### 2 17967 #### [facility],[address] [place] [address] 46381 Triglyceride [Mass/Vol] 57 mg/dL Normal 0 - 150 [facility] Comment on above: Performed By: #### 2 05913 #### [facility],[address] [place] [address] 61295 CNOVon 11-13-2023 CNOV Office Visit ([facility] ) RUSLAN STEPHENS ([id number]) 1950 M [facility] Date Time Provider Department 11/13/23 11:30 AM EMELI HOLLINS [facility] During your visit today, we recorded the [...] as appropriate. Please see relevant sections in epic EHR for details Current Medications (identify differences [...] BMI 3 (more content not included)... Normal [facility] Absolute lymphocyte countOrd ered By: Jeaneth Guillaume on 10-20-2023 Lymphocytes Auto (Unsp spec) [#/Vol] 1.16 10*3/uL 0.83-4.51 [facility] Basophil percentageOrdered B y: Jeaneth Guillaume on 10-20-2023 Basophils/100 WBC (Bld) 0.6 % 0-1 [facility] [place] [facility] Chloride [Moles/Vol] 108 mmol/L 98-107 [facility] Eosinophils/100 WBC (Bld) 1.5 % 0-5 [facility] Glucose [Mass/Vol] 164 mg/dL 74-106 [facility] Comment on above: Fasting Glucose resu lt greater than or equal to 126 mg/dL suggests DIABETES MELLITUS per A.D.A. criteria. Neutrophils (Bld) [#/Vol] 6.1 10*3/uL 2.0-7.7 [facility] Neutrophils/100 WBC (Bld) 74.4 % 47-70 [facility] Potassium [Moles/Vol] 4.0 mmol/L 3.5-5.1 [facility] Sodium [Moles/Vol] 139 mmol/L 136-145 [facility] WBC (Bld) [#/Vol] 8.3 10*3/uL 4.4-11.0 [facility] Blood erythrocytes count (nu mber/volume)Ordered By: Jeaneth Guillaume on 10-20-2023 RBC (Bld) [#/Vol] 4.64 10*6/uL 4.6-6.2 [facility] Blood hemoglobin measurement (mass/volume)Ordered By: Jeaneth Guillaume on 10-20-2023 Hemoglobin (Bld) [Mass/Vol] 13.7 g/dL 13.0-16.5 [facility] Blood lymphocytes/100 leukoc ytesOrdered By: Jeaneth Guillaume on 10-20-2023 Lymphocytes/100 WBC (Bld) 14.0 % 19-41 [facility] Blood monocytes/100 leukocyt esOrdered By: Jeaneth Guillaume on 10-20-2023 Monocytes/100 WBC (Bld) 9.3 % 0-10 [facility] Blood platelet mean volumeOr dered By: Jeaneth Guillaume on 10-20-2023 Platelet mean volume (Bld) [Entitic vol] 10.0 fL 6.2-12.0 [facility] Determination of erythrocyte mean corpuscular volume (MCV)Ordered By: Jeaneth Guillaume on 10-20-2023 MCV (RBC) [Entitic vol] 90.9 fL 80-94 [facility] Hematocrit Auto (Bld) [Volum e fraction]Ordered By: Jeaneth Guillaume on 10-20-2023 Hematocrit (Bld) [Volume fraction] 42.2 % 40-54 [facility] Laboratory - Chemistry and C hemistry - challengeOrdered By: Jeaneth Guillaume on 10-20-2023 CO2 [Moles/Vol] 25.0 mmol/L 21.0-32.0 [facility] Urea nitrogen/Creatinine [Mass ratio] 13.4 mg/mg 10-20 [facility] Laboratory - Hematology and Cell countsOrdered By: Jeaneth Guillaume on 10-20-2023 Erythrocyte distribution width (RBC) [Entitic vol] 42.6 fL 35.1-43.9 [facility] Erythrocyte distribution width (RBC) [Ratio] 13.0 % 11.6-14.6 [facility] Immature granulocytes/100 WBC (Bld) 0.200 % 0.0-0.9 [facility] Comment on above: IG% - Immature Granu locytes (promyelocytes, myelocytes and metamyelocytes) > 1% indicates that a LEFT SHIFT is Present. MCH (RBC) [Entitic mass] 29.5 pg 27.0-32.0 [facility] Nucleated RBC/100 WBC (Bld) [Ratio] 0 % 0-5 [facility] Laboratory - Microbiology an d Antimicrobial susceptibilityOrdered By: Jeaneth Guillaume on 10-20-2023 SARS-CoV-2 (COVID-19) RNA ARACELI+probe Ql (Unsp spec) [facility] MCHC Auto (RBC) [Mass/Vol]Or dered By: Jeaneth Guillaume on 10-20-2023 MCHC (RBC) [Mass/Vol] 32.5 g/dL 32-36 [facility] No Panel InformationOrdered By: Jeaneth Guillaume on 10-20-2023 Estimated Creatinine Clearance Calc 61.52 ml/min [facility] Estimated GFR (MDRD) Amer 78 mL/min >60 [facility] Comment on above: GFR Calc Estimated GFR (MDRD) Non-Af Amer 64 mL/min >60 [facility] Comment on above: Non- GFR Calc Platelets bldOrdered By: Farida Guillaume on 10-20-2023 Platelets (Bld) [#/Vol] 272 10*3/uL 150-450 [facility] Serum or plasma calcium caitlin urement (mass/volume)Ordered By: Jeaneth Guillaume on 10-20-2023 Calcium [Mass/Vol] 9.0 mg/dL 8.5-10.1 [facility] Serum or plasma creatinine m easurement (mass/volume)Ordered By: Jeaneth Guillaume on 10-20-2023 Creatinine [Mass/Vol] 1.19 mg/dL 0.70-1.30 [facility] Comment on above: The validity of the calculated GFR & GFRAA in patients over 70 years has not been determined. Clinical correlation is essential. Serum or plasma urea nitroge n measurement (mass/volume)Ordered By: Jeaneth Guillaume on 10-20-2023 Urea nitrogen [Mass/Vol] 16 mg/dL 7-18 [facility] Thin prep Papanicolaou smear with manual screeningOrdered By: Jeaneth Guillaume on 10-20-2023 Thin prep Papanicolaou smear with manual screening 6 5-15 [facility] No Panel Informationon 11-08 [facility] CNOVon 06-06-2022 [facility] Office Visit (FAMMAS ) RUSLAN STEPHENS ([id number]) 1950 [facility] Date Time Provider Department 06/06/22 10:00 [...] 40 mg capsule (more content not included)... [facility] Visit (FAMMAS ) RUSLAN STEPHENS ([id number]) 1950 [facility] Date Time Provider Department 05/09/22 11:10 AM ULICES TAVERAS During your visit today, we recorded the following information about you: Temperature Pulse Respiration Blood pressure 98 degrees 64/minute 18/minute 134/74 Weight Height 105.5 kg 1.765 m Ulices Taveras MD 05/09/2022 1:59 PM Signed This note was created using [employer]. Subjective Ruslan Stephens is a 71 year [...] content not included)... [facility] Cheikh 04-28-2022 [facility] Telephone (OLESYA) RUSLAN STEPHENS ([id number]) 1950 [facility] Date Time Provider Department 04/28/22 ULICES [...] [facility] [[id number]] Order #: [id number]: 1 Prescriptions as of 04/28/2022 - cyclobenzaprine [...] - secretin, Human, (CHIROSTIM) 16 mcg solr For [...] Encounter Status:Closed by ULICES TAVERAS on 04/28/22 [facility] Anabela 04-25-2022 [facility] Office Visit (LIZETTES ) RUSLAN STEPHENS ([id number]) 1950 [facility] Date Time Provider Department 04/25/22 4:40 PM ULICES TAVERAS During your visit today, we recorded the following information about you: Temperature Pulse Respiration Blood pressure 97.7 degrees 77/minute 14/minute 138/82 Weight Height 103.5 kg 1.791 m Kaila Gary LPN 04/25/2022 5:00 PM Signed Pt had went to [facility] and had an xray that didn't show anything. Pt was prescriped medrol pk onTday prescribed flexaril 5 mg tab Pt still has complaints of 5/10 pain Ulices Taveras MD 04/25/2022 6:00 PM Signed This note was created using [employer]. Subjective Ruslan Stephens is a 71 year [...] 14 tabletRfl: 0 CONSULT TO PHYSICAL THERAPY [5712] Order #: [id number]: 1 FUTURE Prescriptions as of 04/25/2022 - [...] - secretin, Human, (CHIROSTIM) 16 mcg solr For [...] Hypertension [I10] 09/26/20 (more content not included)... [facility] CR Hip w/ Pelvis 2 or 3 View s Righton 04-23-2022 CR Hip w/ Pelvis 2 or 3 Views Right Patient Name: RUSLAN STEPHENS Diagnostic Radiology ACCESSION EXAM DATE/TIME PROCEDURE ORDERING PROVIDER [id number] 04/23/2022 13:11 EDT CR Hip w/ Pelvis 2 or 3 [id number] -PEDRO LUIS DIGGS Views Right n CPT code 44705 Reason For Exam (CR Hip w/ Pelvis [...] Transcribed Date and Time: 04/23/2022 1:25 Normal [facility] ED Provider Noteon 07-09-202 2 ED Provider Note Emergency Department Encounter [facility] Patient: Ruslan Stephens : 1950 [...] history of arthritis in that hip per [facility] plan to discharge with anti-inflammatories and close [...] are mis-transcribed.) Alek Negron MD Acute Care [facility] Alek Negron MD 04/23/22 1310 [facility] ED Provider Note [facility] EMERGENCY DEPARTMENT ENCOUNTER Pt Name: Ruslan Stephens Birthdate 1950 Date of evaluation: 04/23/2022 Provider: Pedro Luis Diggs MD CHIEF COMPLAINT Chief Complaint Patient presents with ? Hip Pain Right hip pain, reports he was at [facility] and had an xray a few days [...] pain. Patient reports that he follows with [facility] has been diagnosed with osteoarthritis after receiving a hip x-ray at that facility. He was given prednisone and was scheduled for follow-up appointment. Patient reports that the hip pain has been persistent, contacted [facility] back and recommended coming to the emergency [...] and Family: Not on file ? Attends [employer]: Not on file ? Active Member [...] the Last Year: Not on file SCREENINGS Darvin Coma Scale Eye Opening: Spontaneous Best Verbal [...] regular rhyth (more content not included)... Normal [facility] XR HIP RIGHT (2-3 VIEWS)on 0 04-23-2022 Patient Name: RUSLAN WOODS Diagnostic Radiology ACCESSION EXAM DATE/TIME PROCEDURE ORDERING PROVIDER [id number] 04/23/2022 13:11 EDT CR Hip w/ Pelvis 2 or 3 [id number] -PEDRO LUIS DIGGS Views Right n CPT code 00730 Reason For Exam (CR Hip w/ Pelvis [...] R Transcribed Date and Time: 04/23/2022 1:25 [facility] Radha Meza MD - 04/23/2022 [id number]iology ACCESSION EXAM DATE/TIME PROCEDURE ORDERING PROVIDER [id number] 04/23/2022 13:11 EDT CR Hip w/ Pelvis 2 or 3 [id number] -PEDRO LUIS DIGGS Views Right n CPT code 98998 Reason For Exam (CR Hip w/ Pelvis [...] and Time: 04/23/2022 1:25 pm Signed by: SUGANO, MD, RADHA R Transcribed Date and Time: 04/23/2022 1:25 [facility] Work Phone: Radiology Study observation (narrative) [facility] Work Phone: XR HIP RIGHT (2-3 VIEWS)Orde red By: Radha Jaffe on 04-23-2022 [facility] Work Phone: No Panel Informationon 04-04 Endomysial IgA Antibody Negative Negative [facility] Work Phone: Serum IgA measurement (units /volume)on 04-04-2022 IgA Qn (S) 182 mg/dL 61-437 [facility] Work Phone: Comment on above: Performed at: [place] [id number] Director: Tian Goodson PhD, Phone: [phone] Serum or plasma C reactive p rotein measurement (mass/volume)on 04-04-2022 CRP [Mass/Vol] mg/L 0.0-3.0 [facility] Work Phone: Comment on above: C-Reactive Protein ( CRP) provides useful information for thediagnosis, therapy and monitoring of inflammatory processesand associated diseases. For the evaluation of Relative Riskfor Cardiovascular Disease, a High Sensitivity CRP (HSCRP)should be ordered. Serum tissue transglutaminas e IgA antibody assay (units/volume)on 04-04-2022 tTG IgA Qn (S) <2 U/mL 0-3 [facility] Work Phone: Comment on above: Negative 0 - 3 Weak Positive 4 - 10 Positive >10 Tissue Transglutaminase (tTG) has been identified as the endomysial antigen. Studies have demonstr- ated that endomysial IgA antibodies have over 99% specificity for gluten sensitive enteropathy. MRI PANCREAS FUNCTION WO/W I VCONon 02-09-2022 [facility] Hemoglobin A1con 10-19-2021 Glucose [Mass/Vol] 148 mg/dL Normal [facility] Comment on above: Performed By: #### H BA #### [facility] Routine Lab [address] [place] [address] HbA1c (Bld) [Mass fraction] 6.8 % High 4.3-5.6 [facility] Comment on above: Performed By: #### H BA1C #### [facility] Routine Lab [address] [place], [place] [id number] Hemoglobin A1con 11-27-2020 Glucose [Mass/Vol] 143 mg/dL Normal [facility] Reference Lab Comment on above: Performed By: #### H BA1C #### [facility] Routine Lab [address] [place], [place] [address] HbA1c (Bld) [Mass fraction] 6.6 % High 4.3-5.6 [facility] Comment on above: Performed By: #### H BA1C #### [facility] Routine Lab [address] [place], [place] [address] Lab Report: Basic Metabolic Profile (BMP)on 11-22-2017 Anion gap 9 mmol/L Invalid Interpretation Code 5-15 [employer] Work Phone: [phone] BUN/Creatinine Ratio 28.0 RATIO High 10-20 [facility] [employer] Work Phone: [phone] Calcium 8.7 mg/dL Invalid Interpretation Code 8.5-10.1 [employer] Work Phone: [phone] Chloride 104 mmol/L Invalid Interpretation Code 98-107 [employer] Work Phone: [phone] CO2 26.0 mmol/L Invalid Interpretation Code 21.0-32.0 [employer] Work Phone: [phone] Creatinine 0.93 mg/dL Invalid Interpretation Code 0.70-1.30 [employer] Work Phone: [phone] eGFR (non-black) 105 mL/min/{1.73_m2} Invalid Interpretation Code >60 [employer] Work Phone: [phone] eGFR (non-black) 87 mL/min/{1.73_m2} Invalid Interpretation Code >60 [employer] Work Phone: [phone] Glucose 96 mg/dL Invalid Interpretation Code 74-106 [employer] Work Phone: [phone] Potassium 3.7 mmol/L Invalid Interpretation Code 3.5-5.1 [employer] Work Phone: [phone] Sodium 139 mmol/L Invalid Interpretation Code 136-145 [employer] Work Phone: [phone] Urea nitrogen 26 mg/dL High 7-18 [facility] Work Phone: [phone] Lab Report: CBC-Complete Blo od Cnt No Diffon 11-22-2017 Erythrocytes (RBC) 4.76 10*6/uL Invalid Interpretation Code 4.6-6.2 [employer] Work Phone: [phone] Hematocrit (HCT) 43.4 % Invalid Interpretation Code 40-54 [employer] Work Phone: [phone] Hemoglobin (HGB) 14.4 g/dL Invalid Interpretation Code 13.0-16.5 [employer] Work Phone: [phone] MCH 30.3 pg Invalid Interpretation Code 27.0-32.0 [employer] Work Phone: [phone] MCHC 33.2 G/GL Invalid Interpretation Code 32-36 [employer] Work Phone: [phone] MCV 91.2 fL Invalid Interpretation Code 80-94 [employer] Work Phone: [phone] Platelets 318 10*3/mm3 Invalid Interpretation Code 150-450 [employer] Work Phone: [phone] PMV by Marvin 10.0 fL Invalid Interpretation Code 6.2-12.0 [employer] Work Phone: [phone] RDW-CA 14.0 % Invalid Interpretation Code 11.6-14.6 [employer] Work Phone: [phone] red blood cell distribution width, size density 46.1 fL High 35.1-43.9 [employer] Work Phone: [phone] WBC (Leukocytes) 6.9 10*3/uL Invalid Interpretation Code 4.4-11.0 [employer] Work Phone: [phone] Lab Report: Prothrombin Time w/INRon 11-22-2017 Coagulation tissue factor induced in platelet poor plasma 13.7 s Invalid Interpretation Code 11.7-14.9 [employer] Work Phone: [phone] INR in blood by coagulation 1.1 {INR} Invalid Interpretation Code [employer] Phone: [phone] Office Visiton 08-02-2017 Dietary management education, guidance, and counseling (procedure) yes Invalid Interpretation Code [employer] Phone: [phone] Documentation of current medications (procedure) Done Invalid Interpretation Code [employer] Phone: [phone] Replaced Document: Brennon Burt CG Observationson 08-02-2017 EKG QRS axis 40 deg Invalid Interpretation Code [employer] Phone: [phone] electrocardiogram interpretation Sinus Rhythm WITHIN NORMAL LIMITS Invalid Interpretation Code [employer] Phone: [phone] GE use only - for [employer] import when terms are not otherwise specified 385 ms Invalid Interpretation Code [employer] Phone: [phone] Interpretation Sinus Rhythm WITHIN NORMAL LIMITS Invalid Interpretation Code [employer] Phone: [phone] P [place] 58 deg Invalid Interpretation Code [facility] Phone: [phone] P wave axis, electrocardiogram 58 deg Invalid Interpretation Code [employer] Phone: [phone] AK Interval 182 ms Invalid Interpretation Code [employer] Phone: [phone] AK interval, electrocardiogram 182 ms Invalid Interpretation Code [employer] Phone: [phone] Pulse (Heart Rate) 79 /min Invalid Interpretation Code [employer] Phone: [phone] QRS axis, electrocardiogram 40 deg Invalid Interpretation Code [employer] Phone: [phone] QRS Duration 85 ms Invalid Interpretation Code [facility] Phone: [phone] QRS duration, electrocardiogram 85 ms Invalid Interpretation Code [employer] Phone: [phone] QT Interval new path ms Invalid Interpretation Code [employer] Phone: [phone] QT interval, electrocardiogram new path ms Invalid Interpretation Code [employer] Phone: [phone] QTc Hrebert 385 ms Invalid Interpretation Code [employer] Phone: T [place] 28 deg Invalid Interpretation Code [employer] Work Phone: [phone] T wave axis, electrocardiogram 28 deg Invalid Interpretation Code [employer] Work Phone: [phone] 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 Hemoglobin A1c/Hemoglobin.total mass fraction (Bld) 6.1 % Invalid Interpretation Code [employer] Work Phone: [phone] Alanine aminotransferase (ALT) 37 U/L Invalid Interpretation Code [employer] Work Phone: [phone] Albumin 4.3 g/dL Invalid Interpretation Code [employer] Work Phone: [phone] Alkaline phosphatase (ALP) 54 U/L Invalid Interpretation Code [employer] Work Phone: [phone] Aspartate aminotransferase (AST) 25 U/L Invalid Interpretation Code [employer] Work Phone: [phone] Bilirubin (total) 0.5 mg/dL Invalid Interpretation Code [employer] Work Phone: [phone] BUN/Creatinine Ratio 18 mg/mg Invalid Interpretation Code [employer] Work Phone: [phone] Calcium 9.1 mg/dL Invalid Interpretation Code [employer] Work Phone: [phone] Chloride 107 mmol/L Invalid Interpretation Code [employer] Work Phone: [phone] Cholesterol 152 mg/dL Invalid Interpretation Code [employer] Work Phone: [phone] Cholesterol to HDL Ratio 4.2 {ratio} Invalid Interpretation Code [employer] Work Phone: [phone] CO2 31.0 mmol/L High [employer] Work Phone: [phone] Creatinine 1.0 mg/dL Invalid Interpretation Code [employer] Work Phone: [phone] Globulin 2.4 g/dL Invalid Interpretation Code [employer] Work Phone: [phone] Glucose mass conc 116 mg/dL High [employer] Work Phone: [phone] HDL Cholesterol 36 mg/dL Low [employer] Work Phone: [phone] LDL Cholesterol 95 mg/dL Invalid Interpretation Code [employer] Work Phone: [phone] Potassium molar conc 3.7 mmol/L Invalid Interpretation Code [employer] Work Phone: [phone] Protein 6.7 g/dL Invalid Interpretation Code [employer] Work Phone: [phone] Sodium 141 mmol/L Invalid Interpretation Code [employer] Work Phone: [phone] Triglyceride 104 mg/dL Invalid Interpretation Code [employer] Work Phone: [phone] Urea nitrogen 18 mg/dL Invalid Interpretation Code [employer] Work Phone: [phone] Erythrocyte distribution width Auto Ratio (RBC) 14.2 % Invalid Interpretation Code [employer] Work Phone: [phone] Erythrocytes (RBC) 4.81 10*6/uL Invalid Interpretation Code [employer] Work Phone: [phone] Hematocrit (HCT) 43.2 % Invalid Interpretation Code [employer] Work Phone: [phone] Hemoglobin mass conc (Bld) 14.5 g/dL Invalid Interpretation Code [employer] Work Phone: [phone] MCH 30 pg Invalid Interpretation Code [employer] Work Phone: [phone] MCHC mass conc (RBC) 34 g/dL Invalid Interpretation Code [employer] Work Phone: [phone] MCV 90 fL Invalid Interpretation Code [employer] Work Phone: [phone] Platelets 248 10*3/mm3 Invalid Interpretation Code [facility] Phone: [phone] PMV by Marvin 8.5 fL Invalid Interpretation Code [employer] Work Phone: [phone] WBC (Leukocytes) 7.0 10*3/uL Invalid Interpretation Code [employer] Work Phone: [phone] Office Visit: [facility] 04-23-20 13 Documentation of current medications (procedure) Done Invalid Interpretation Code [facility] Phone: [phone] Replaced Document: Brennon Burt CG Observationson 04-23-2013 Pulse (Heart Rate) 397 ms Invalid Interpretation Code [facility] Phone: [phone] Lab Reporton 03-04-2013 Albumin/Globulin Ratio 2.0 {ratio} Invalid Interpretation Code [facility] Phone: [phone] Office Visiton 10-23-2012 Tobacco smoking status NHIS Tobacco smoking status NHIS Invalid Interpretation Code [facility] Work Phone: [phone] Tobacco use CPHS never smoker Invalid Interpretation Code [facility] Work Phone: [phone] Office Visiton 08-31-2011 cardiac risk group C Invalid Interpretation Code [facility] Work Phone: [phone] cholesterol, target level 200 mg/dL Invalid Interpretation Code [facility] Work Phone: [phone] General cardiovascular disease 10Y risk [#] Neb[place].D'Agostino N/A Invalid Interpretation Code [facility] Work Phone: [phone] HDL cholesterol, serum, target level 40 mg/dL Invalid Interpretation Code [facility] Work Phone: [phone] LDL target level 100 mg/dL Invalid Interpretation Code [facility] Work Phone: [phone] triglyceride, target level 150 mg/dL Invalid Interpretation Code [facility] Work Phone: [phone] Vital Signs Date Time Vital Sign Value Performing Clinician [facility] 05-20-2025 10:28-0400 Body height 177.[address] Kem Davila MD Work Phone: [facility] 05-20-2025 10:28-0400 Body mass index (BMI) [Ratio] 34.1 kg/m2 Dr. Kem Davila MD Work Phone: [facility] 05-20-2025 10:28-0400 Body weight 107.[address] Kem Davila MD Work Phone: [facility] 05-20-2025 10:28-0400 Diastolic blood pressure 78 mm[Hg] Dr. Kem Davila MD Work Phone: [facility] 05-20-2025 10:28-0400 Heart rate 49 /min Dr. Kem Davila MD Work Phone: [facility] 05-20-2025 10:28-0400 Respiratory rate 18 /min Dr. Kem Davila MD Work Phone: [facility] 05-20-2025 10:28-0400 Systolic blood pressure 136 mm[Hg] Dr. Kem Davila MD Work Phone: [facility] 05-19-2025 12:01-0400 Body temperature 98.1 [degF] Dr. Kem Davila MD Work Phone: [facility] 05-19-2025 12:01-0400 Diastolic blood pressure 79 mm[Hg] Dr. Kem Davila MD Work Phone: [facility] 05-19-2025 12:01-0400 Heart rate 81 /min Dr. Kem Davila MD Work Phone: [facility] 05-19-2025 12:01-0400 Respiratory rate 16 /min Dr. Kem Davila MD Work Phone: [facility] 05-19-2025 12:01-0400 SaO2% (BldA) [Mass fraction] 100 % Dr. Kem Davila MD Work Phone: [facility] 05-19-2025 12:01-0400 Systolic blood pressure 176 mm[Hg] Dr. Kem Davila MD Work Phone: [facility] 05-19-2025 08:55-0400 Body height 177.[address] Kem Davila MD Work Phone: [facility] 05-19-2025 08:55-0400 Body mass index (BMI) [Ratio] 75.6 kg/m2 Dr. Kem Davila MD Work Phone: [facility] 05-19-2025 08:55-0400 Body weight 239.[address] Kem Davila MD Work Phone: [facility] 05-12-2025 15:03-0400 Body height 180.[address] Kem Davila MD Work Phone: [facility] 05-12-2025 15:03-0400 Body mass index (BMI) [Ratio] 33.7 kg/m2 Dr. Kem Davila MD Work Phone: [facility] 05-12-2025 15:03-0400 Body weight 109.[address] Kem Davila MD Work Phone: [facility] 05-12-2025 15:03-0400 Diastolic blood pressure 75 mm[Hg] Dr. Kem Davila MD Work Phone: [facility] 05-12-2025 15:03-0400 Heart rate 67 /min Dr. Kem Davila MD Work Phone: [facility] 05-12-2025 15:03-0400 Respiratory rate 16 /min Dr. Kem Davila MD Work Phone: [facility] 05-12-2025 15:03-0400 SaO2% (BldA) [Mass fraction] 93 % Dr. Kem Davila MD Work Phone: [facility] 05-12-2025 15:03-0400 Systolic blood pressure 136 mm[Hg] Dr. Kem Davila MD Work Phone: [facility] 05-13-2024 11:46-0400 Body mass index (BMI) [Ratio] 32.72 kg/m2 Emeli Hollins MD Work Phone: [facility] 05-13-2024 11:46-0400 Body weight 106.4 kg Emeli Hollins MD Work Phone: [facility] 05-13-2024 11:46-0400 Diastolic blood pressure 86 mm[Hg] Emeli Hollins MD Work Phone: [facility] 05-13-2024 11:46-0400 Heart rate 56 /min Emeli Hollins MD Work Phone: [facility] 05-13-2024 11:46-0400 Systolic blood pressure 145 mm[Hg] Emeli Hollins MD Work Phone: [facility] 10-20-2023 14:11-0500 Diastolic blood pressure 69 mm[Hg] Dr. Kem Davila Work Phone: [facility] 10-20-2023 14:11-0500 Systolic blood pressure 125 mm[Hg] Dr. Kem Davila Work Phone: [facility] 10-20-2023 13:15-0500 Heart rate 92 /min Dr. Kem Davila Work Phone: [facility] 10-20-2023 13:15-0500 Respiratory rate 18 /min Dr. Kem Davila Work Phone: [facility] 10-20-2023 12:12-0500 Body height 180.[address] Kem Davila Work Phone: [facility] 10-20-2023 12:12-0500 Body mass index (BMI) [Ratio] 34.1 kg/m2 Dr. Kem Davila Work Phone: [facility] 10-20-2023 12:12-0500 Body temperature 99.8 [degF] Dr. Kem Davila Work Phone: [facility] 10-20-2023 12:12-0500 Body weight 110.[address] Kem Davila Work Phone: [facility] 10-20-2023 12:12-0500 SaO2% (BldA) [Mass fraction] 100 % Dr. Kem Davila Work Phone: [facility] 04-03-2023 10:57-0400 Body weight 107.68 kg Emeli Hollins MD Work Phone: [facility] 04-03-2023 10:57-0400 Diastolic blood pressure 76 mm[Hg] Emeli Hollins MD Work Phone: [facility] 04-03-2023 10:57-0400 Heart rate 81 /min Emeli Hollins MD Work Phone: [facility] 04-03-2023 10:57-0400 Systolic blood pressure 122 mm[Hg] Emeli Hollins MD Work Phone: [facility] 12-09-2022 08:54-0500 Body height 180.3 cm Jay Miranda MD Work Phone: [facility] 12-09-2022 08:54-0500 Body temperature 97.11 [degF] Jay Miranda MD Work Phone: [facility] 12-09-2022 08:54-0500 Body weight 106.59 kg Jay Miranda MD Work Phone: [facility] 12-09-2022 08:54-0500 Diastolic blood pressure 67 mm[Hg] Jay Miranda MD Work Phone: [facility] 12-09-2022 08:54-0500 Heart rate 68 /min Jay Miranda MD Work Phone: [facility] 12-09-2022 08:54-0500 Respiratory rate 14 /min Jay Miranda MD Work Phone: [facility] 12-09-2022 08:54-0500 SaO2% (BldA) [Mass fraction] 100 % Jay Miranda MD Work Phone: [facility] 12-09-2022 08:54-0500 Systolic blood pressure 136 mm[Hg] Jay Miranda MD Work Phone: [facility] 10-31-2022 09:50-0500 Body temperature 97.5 [degF] Emeli Hollins MD Work Phone: [facility] 10-31-2022 09:50-0500 Body weight 104.83 kg Emeli Hollins MD Work Phone: [facility] 10-31-2022 09:50-0500 Diastolic blood pressure 81 mm[Hg] Emeli Hollins MD Work Phone: [facility] 10-31-2022 09:50-0500 Heart rate 62 /min Emeli Hollins MD Work Phone: [facility] 10-31-2022 09:50-0500 Respiratory rate 18 /min Emeli Hollins MD Work Phone: [facility] 10-31-2022 09:50-0500 SaO2% (BldA) [Mass fraction] 100 % Emeli Hollins MD Work Phone: [facility] 10-31-2022 09:50-0500 Systolic blood pressure 135 mm[Hg] Emeli Hollins MD Work Phone: [facility] 07-20-2022 10:31-0400 Body height 180.3 cm Azam Oconnell MD Work Phone: [facility] 07-20-2022 10:31-0400 Body temperature 96.3 [degF] Azam Oconnell MD Work Phone: [facility] 07-20-2022 10:31-0400 Body weight 101.7 kg Azam Oconnell MD Work Phone: [facility] 07-20-2022 10:31-0400 Diastolic blood pressure 83 mm[Hg] Azam Oconnell MD Work Phone: [facility] 07-20-2022 10:31-0400 Heart rate 62 /min Azam Oconnell MD Work Phone: [facility] 07-20-2022 10:31-0400 SaO2% (BldA) [Mass fraction] 96 % Azam Oconnell MD Work Phone: [facility] 07-20-2022 10:31-0400 Systolic blood pressure 135 mm[Hg] Azam Oconnell MD Work Phone: [facility] 06-21-2022 14:12-0400 Diastolic blood pressure 60 mm[Hg] [facility] Work Phone: 09-06-2022 14:12-0400 Heart rate 75 /min [facility] Work Phone: 06-21-2022 14:120400 Respiratory rate 18 /min [facility] Work Phone: 06-21-2022 14:12-0400 SaO2% (BldA) [Mass fraction] 97 % [facility] Work Phone: 06-21-2022 14:12-0400 Systolic blood pressure 130 mm[Hg] [facility] Work Phone: 06-21-2022 13:13-0400 Body temperature 99.1 [degF] [facility] Work Phone: 06-21-2022 12:37-0400 Body height 180.34 cm [facility] Work Phone: 06-21-2022 12:37-0400 Body mass index (BMI) [Ratio] 32.1 kg/m2 [facility] Work Phone: 06-21-2022 12:37-0400 Body weight 104.32 kg [facility] Work Phone: 06-06-2022 10:10-0400 Body height 180.3 cm Ulices Taveras MD Work Phone: [facility] 06-06-2022 10:10-0400 Body temperature 97.11 [degF] Ulices Taveras MD Work Phone: [facility] 06-06-2022 10:10-0400 Body weight 103.96 kg Ulices Taveras MD Work Phone: [facility] 06-06-2022 10:10-0400 Diastolic blood pressure 80 mm[Hg] Ulices Taveras MD Work Phone: [facility] 06-06-2022 10:10-0400 Heart rate 56 /min Ulices Taveras MD Work Phone: [facility] 06-06-2022 10:10-0400 Respiratory rate 14 /min Ulices Taveras MD Work Phone: [facility] 06-06-2022 10:10-0400 SaO2% (BldA) [Mass fraction] 96 % Ulices Taveras MD Work Phone: [facility] 06-06-2022 10:10-0400 Systolic blood pressure 148 mm[Hg] Ulices Taveras MD Work Phone: [facility] 05-12-2022 11:36-0400 Diastolic blood pressure 75 mm[Hg] [facility] Work Phone: 05-12-2022 11:36-0400 Heart rate 80 /min [facility] Work Phone: 05-12-2022 11:36-0400 Systolic blood pressure 122 mm[Hg] [facility] Work Phone: 05-12-2022 11:32-0400 Body height 180.34 cm [facility] Work Phone: 05-12-2022 11:32-0400 Body mass index (BMI) [Ratio] 31.8 kg/m2 [facility] Work Phone: 05-12-2022 11:32-0400 Body weight 103.41 kg [facility] Work Phone: 05-12-2022 11:32-0400 Respiratory rate 16 /min [facility] Work Phone: 05-12-2022 11:32-0400 SaO2% (BldA) [Mass fraction] 96 % [facility] Work Phone: 05-09-2022 11:37-0400 Body height 176.5 cm Ulices Taveras MD Work Phone: [facility] 05-09-2022 11:37-0400 Body temperature 98.01 [degF] Ulices Taveras MD Work Phone: [facility] 05-09-2022 11:37-0400 Body weight 105.51 kg Ulices Taveras MD Work Phone: [facility] 05-09-2022 11:37-0400 Diastolic blood pressure 74 mm[Hg] Ulices Taveras MD Work Phone: [facility] 05-09-2022 11:37-0400 Heart rate 64 /min Ulices Taveras MD Work Phone: [facility] 05-09-2022 11:37-0400 Respiratory rate 18 /min Ulices Taveras MD Work Phone: [facility] 05-09-2022 11:37-0400 SaO2% (BldA) [Mass fraction] 95 % Ulices Taveras MD Work Phone: [facility] 05-09-2022 11:37-0400 Systolic blood pressure 134 mm[Hg] Ulices Taveras MD Work Phone: [facility] 04-25-2022 16:40-0400 Body height 179.1 cm Ulices Taveras MD Work Phone: [facility] 04-25-2022 16:40-0400 Body temperature 97.7 [degF] Ulices Taveras MD Work Phone: [facility] 04-25-2022 16:40-0400 Body weight 103.51 kg Ulices Taveras MD Work Phone: [facility] 04-25-2022 16:40-0400 Diastolic blood pressure 82 mm[Hg] Ulices Taveras MD Work Phone: [facility] 04-25-2022 16:40-0400 Heart rate 77 /min Ulices Taveras MD Work Phone: [facility] 04-25-2022 16:40-0400 Respiratory rate 14 /min Ulices Taveras MD Work Phone: [facility] 04-25-2022 16:40-0400 SaO2% (BldA) [Mass fraction] 95 % Ulices Taveras MD Work Phone: [facility] 04-25-2022 16:40-0400 Systolic blood pressure 138 mm[Hg] Ulices Taveras MD Work Phone: [facility] 04-23-2022 13:50-0400 Diastolic blood pressure 72 mm[Hg] Alek Negron MD Work Phone: [facility] 04-23-2022 13:50-0400 Heart rate 56 /min Alek Negron MD Work Phone: [facility] 04-23-2022 13:50-0400 Respiratory rate 16 /min Alek Negron MD Work Phone: [facility] 04-23-2022 13:50-0400 SaO2% (BldA) [Mass fraction] 96 % Alek Negron MD Work Phone: [facility] 04-23-2022 13:50-0400 Systolic blood pressure 125 mm[Hg] Alek Negron MD Work Phone: [facility] 04-23-2022 11:14-0400 Body temperature 97.59 [degF] Alek Negron MD Work Phone: [facility] 04-23-2022 11:14-0400 Body weight 104.33 kg Alek Negron MD Work Phone: [facility] 02-09-2022 12:31-0400 Diastolic blood pressure 87 mm[Hg] Mri (I-Stat/1.5t/3t) Work Phone: [facility] 02-09-2022 12:31-0400 Heart rate 78 /min Mri (I-Stat/1.5t/3t) Work Phone: [facility] 02-09-2022 12:31-0400 SaO2% (BldA) [Mass fraction] 98 % Mri (I-Stat/1.5t/3t) Work Phone: [facility] 02-09-2022 12:31-0400 Systolic blood pressure 131 mm[Hg] Mri (I-Stat/1.5t/3t) Work Phone: [facility] 02-09-2022 09:47-0400 Respiratory rate 16 /min Mri (I-Stat/1.5t/3t) Work Phone: [facility] 12-19-2021 05:10-0500 Diastolic blood pressure 72 mm[Hg] [facility] Work Phone: 12-19-2021 05:10-0500 Heart rate 64 /min [facility] Work Phone: 12-19-2021 05:10-0500 Respiratory rate 15 /min [facility] Work Phone: 12-19-2021 05:10-0500 SaO2% (BldA) [Mass fraction] 91 % [facility] Work Phone: 12-19-2021 05:10-0500 Systolic blood pressure 124 mm[Hg] [facility] Work Phone: 12-19-2021 04:10-0500 Diastolic blood pressure 72 mm[Hg] [facility] Work Phone: 12-19-2021 04:10-0500 Heart rate 64 /min [facility] Work Phone: 12-19-2021 04:10-0500 Respiratory rate 15 /min [facility] Work Phone: 12-19-2021 04:10-0500 SaO2% (BldA) [Mass fraction] 91 % [facility] Work Phone: 12-19-2021 04:10-0500 Systolic blood pressure 124 mm[Hg] [facility] Work Phone: 12-19-2021 02:25-0500 Body height 180.34 cm [facility] Work Phone: 12-19-2021 02:25-0500 Body mass index (BMI) [Ratio] 32.1 kg/m2 [facility] Work Phone: 12-19-2021 02:25-0500 Body temperature 98.1 [degF] [facility] Work Phone: 12-19-2021 02:25-0500 Body weight 104.32 kg [facility] Work Phone: 12-19-2021 01:25-0500 Body height 180.34 cm [facility] Work Phone: 12-19-2021 01:25-0500 Body mass index (BMI) [Ratio] 32.1 kg/m2 [facility] Work Phone: 12-19-2021 01:25-0500 Body temperature 98.1 [degF] [facility] Work Phone: 12-19-2021 01:25-0500 Body weight 104.32 kg [facility] Work Phone: 10-25-2021 09:17-0500 Body weight 103.87 kg [facility] Work Phone: 10-25-2021 09:17-0500 Diastolic blood pressure 78 mm[Hg] [facility] Work Phone: 10-25-2021 09:17-0500 Heart rate 62 /min [facility] Work Phone: 10-25-2021 09:17-0500 Systolic blood pressure 133 mm[Hg] [facility] Work Phone: 10-22-2020 07:32-0500 Body mass index (BMI) [Ratio] 33.2 kg/m2 [facility] Work Phone: 08-02-2017 14:09-0400 BMI (Body Mass Index) 33.19 kg/m2 [facility] Work Phone: 08-02-2017 14:09-0400 BP Diastolic 82 mm[Hg] [facility] Work Phone: 08-02-2017 14:09-0400 BP Systolic 140 mm[Hg] [facility] Work Phone: 08-02-2017 14:09-0400 Height 180.34 cm [facility] Work Phone: 08-02-2017 14:09-0400 Pulse (Heart Rate) 72 /min [facility] Work Phone: 08-02-2017 14:09-0400 Respiratory Rate 18 /min [facility] Work Phone: 08-02-2017 14:09-0400 Weight 107.96 kg [facility] Work Phone: 04-23-2013 16:10-0400 BMI (Body Mass Index) 32.89 kg/m2 [facility] Work Phone: 04-23-2013 16:10-0400 BP Diastolic 70 mm[Hg] [facility] Work Phone: 04-23-2013 16:10-0400 BP Systolic 100 mm[Hg] [facility] Work Phone: 04-23-2013 16:10-0400 Pulse (Heart Rate) 68 /min [facility] Work Phone: 04-23-2013 16:10-0400 Respiratory Rate 20 /min [facility] Work Phone: 04-23-2013 16:10-0400 Weight 106.6 kg [facility] Work Phone: 08-31-2011 16:29-0500 Height 180.34 cm [facility] Work Phone: Encounters Encounter Date Encounter Type Care Provider Facility Start: 05-20-2025 End: 05-20-2025 [facility] encounter procedure [facility] Work Phone: Start: 05-20-2025 End: 05-20-[address] Kem Davila MD Work Phone: [facility] Start: 05-19-2025 End: 05-19-2025 Emergency department patient visit Dr. Kem Davila MD Work Phone: -Emergency Department Work Phone: Start: 05-12-2025 End: 05-12-2025 Patient encounter procedure [facility] Work Phone: Start: 05-12-2025 End: 05-12-[address] Kem Davila MD Work Phone: [facility] Start: 11-25-2024 End: 11-25-2024 ambulatory Kemnicholas Davila Facility:[facility] Start: 06-03-2024 End: 06-03-2024 ambulatory Kemnicholas Davila Facility:[facility] Start: 05-13-2024 End: 05-14-2024 ambulatory KEM G LOLA Facility:[facility] Start: 05-13-2024 End: 05-14-2024 Office outpatient visit 25 minutes Emeli Hollins MD Work Phone: Geriatrics Comment on above: Word finding difficu lty (Primary Dx); Gait disturbance; Anxiety Start: 11-16-2023 End: 11-16-2023 ambulatory [facility] Start: 11-13-2023 End: 11-14-2023 ambulatory KEM DAVILA Facility:[facility] Start: 10-20-2023 End: 10-20-2023 Emergency department patient visit Dr. Kem Davila Work Phone: [facility] Work Phone: Start: 08-28-2023 End: 08-28-[address] Kem Davila Work Phone: [facility] Work Phone: Start: 04-03-2023 End: [...] Start: 12-08-2022 Patient encounter procedure [facility] Start: 11-30-2022 Chart abstracting Emeli Hollins [...] Start: 10-25-2022 Patient encounter procedure [facility] Start: 08-26-2022 Kena Lopez MD Work Phone: [facility] [place] Comment on above: Opened In Error Start: 08-20-2022 Patient encounter procedure [facility] Start: 07-20-2022 End: 07-20-2022 Patient encounter procedure Azam Oconnell MD Work Phone: Gastroenterology Comment on above: 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)] (Primary Dx) Start: 07-01-2022 Patient encounter procedure [facility] Start: 06-21-2022 End: 06-21-2022 Emergency department patient visit [facility] Start: 06-06-2022 End: 06-06-2022 Office outpatient visit 25 minutes Ulices Taveras MD Work Phone: [facility] Comment on above: Preoperative clearan ce (Primary Dx) Start: 06-06-2022 End: 06-06-2022 Preoperative state Ulices Taveras MD Work Phone: [facility] Start: 05-30-2022 Non-patient / Non-visit [facility] Start: 05-30-2022 End: 05-30-2022 Patient encounter procedure [facility] Start: 05-25-2022 Patient encounter procedure [facility] Start: 05-23-2022 Patient encounter procedure [facility] Start: 05-17-2022 Patient encounter procedure [facility] Start: 05-12-2022 End: 05-12-2022 Patient encounter procedure [facility] Start: 05-09-2022 End: 05-09-2022 Office outpatient visit 15 minutes Ulices Taveras MD Work Phone: [facility] Comment on above: Primary hypertension (Primary Dx); Mixed hyperlipidemia; Ischemic heart disease; Hx of myocardial infarction; Diabetes mellitus type II (HCC); Idiopathic gout, unspecified chronicity, unspecified site; Anxiety Start: 05-09-2022 End: 05-09-2022 Patient encounter procedure [facility] Start: 04-28-2022 Telephone encounter Ulices Taveras MD Work Phone: [facility] [place] Comment on above: Orders (pain managem ent referral) Start: 04-25-2022 End: 04-25-2022 Office outpatient visit 15 minutes Ulices Taveras MD Work Phone: [facility] [place] Comment on above: Acute midline low ba ck pain with right-sided sciatica (Primary Dx) Start: 04-23-2022 End: 04-23-2022 Emergency department patient visit Alek Negron MD Work Phone: [facility] Comment on above: Right hip pain (Prim alexander Dx); Osteoarthritis of both hips, unspecified osteoarthritis type Start: 04-22-2022 Patient encounter procedure [facility] Start: 04-04-2022 End: 04-04-2022 Patient encounter procedure [facility] Start: 03-07-2022 Patient encounter status [facility] Start: 02-09-2022 ambulatory Eufemia miarmontes Comment on above: Patient Education Start: 02-09-2022 End: 02-09-2022 Subsequent hospital visit by physician Mri 7 [employer] [facility] Q (I-Stat/1.5t/3t) Work Phone: [facility] Comment on above: Exocrine pancreatic insufficiency [K86.81] Start: 01-17-2022 Non-patient / Non-visit [facility] Start: 01-17-2022 End: 01-17-2022 Patient encounter procedure [facility] Start: 12-19-2021 End: 12-19-2021 Emergency department patient visit [facility] Start: 2021 Telephone encounter Tony Oconnell MD Work Phone: Gastroenterology Comment on above: Received Outside [facility] Records Start: 10-25-2021 End: 10-25-2021 Patient encounter procedure [facility] Procedures Date Procedure [...] Comment on above: Performed By: #### [id number] #### [facility],[address] [place] [address] Start: 10-20-2023 SARS-CoV-2, Influenz a & RSV [...] pharmacologic stress agent Ulices Taveras Start: 06-24-2019 Guerda arboleda MD Work Phone: Start: 08-02-2017 End: 08-02-2017 Ecg routine ecg w/least 12 lds w/i&r Baldev Freed MD Start: 08-02-2017 End: 08-02-2017 Follow Up Appt 6 months [facility]ure[facility] Start: 08-02-2017 End: 08-02-2017 MM Baldev Freed MD Start: 08-02-2017 End: 08-02-2017 Electrocardiogram, complete Baldev Ball i, MD Start: 08-02-2017 End: 08-02-2017 Follow Up Appt 6 months [facility] Start: 08-02-2017 End: 08-02-2017 MM Baldev Freed MD Start: 08-16-2013 End: 09-03-2013 *Hepatic Function Panel Prisca Lopes PA-C Work Phone: Start: 08-16-2013 End: 09-03-2013 Lipid 1996 panel - Serum or Plasma Prisca Lopes PA-C Work Phone: Start: 08-16-2013 End: 09-03-2013 *Hepatic Function Panel Prisca Lopes PA-C Work Phone: Start: 08-16-2013 End: 09-03-2013 Lipid panel [AGGREGATE] Prisca Lopes PA-C Work Phone: Start: 04-23-2013 End: 08-02-2017 SUPPLY CHAIN INTERN Prisca Lopes PA-C Work Phone: Start: 04-23-2013 End: 08-02-2017 Ecg routine ecg w/least 12 lds w/i&r Prisca Lopes PA-C Work Phone: Start: 04-23-2013 End: 08-02-2017 Follow Up Appt 6 months Prisca Lopes PA-C Work Phone: Start: 04-23-2013 End: 08-02-2017 SUPPLY CHAIN INTERN Prisca Lopes PA-C Work Phone: Start: 04-23-2013 [...] stent placement Ulices Taveras Comment on above: [id number] LAD w/ 4.0 x 12 mm Liberte Stent 09/09/2006 Plan of Treatment Date Care Activity Detail Author Start: 11-03-2032 Urine microalbumin profile [facility] Start: 06-24-2029 Colonoscopy COLONOSCOPY [facility] Start: 06-24-2029 COLORECTAL CANCER SCREENING COLORECTAL CANCER SCREENING [facility] Start: 06-24-2029 Screening for malign ant neoplasm of colon [facility] Start: 05-19-2025 [facility] Start: 05-19-2025 [facility] Start: 05-13-2025 Annual PCP Team Can Coverer jose l Disease Visit Annual PCP Team Chronic Disease Visit [facility] Start: 02-03-2025 End: 02-03-2025 Patient encounter procedure 02/03/2025 11:30 AM EDT Office Visit Geriatrics [address] [place] [address] Emeli Hollins MD [address] [place] [address] 9 month follow up Geriatrics Comment on above: 9 month follow up Start: 12-15-2024 DIABETES SCREEN DIABETES SCREEN [facility] Start: 06-16-2024 Influenza vaccination Influenza Vacc ine (#1) [facility] Start: 04-03-2024 ANNUAL PCP TEAM 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 JOSE L DISEASE VISIT ANNUAL PCP TEAM CHRONIC DISEASE VISIT [facility] Start: 04-03-2024 BP CONTROLLED (<130/80) BP CONTROLLE D (<130/80) [facility] Start: 10-31-2023 ANNUAL PCP TEAM 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 JOSE L DISEASE VISIT ANNUAL PCP TEAM CHRONIC DISEASE VISIT [facility] Start: 10-20-2023 [facility] Start: 10-16-2023 Advance Directive Discussion Advance Directive Discussion [facility] Start: 06-16-2023 Covid-19 Vaccine ( season) Covid-19 Vaccine ( season) [facility] Start: 06-06-2023 ANNUAL PCP TEAM 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 L DISEASE VISIT ANNUAL PCP TEAM CHRONIC DISEASE VISIT [facility] Start: 05-09-2023 ANNUAL PCP TEAM WAREHOUSE LOGISTICS MANAGER JOSE L DISEASE VISIT ANNUAL PCP TEAM CHRONIC DISEASE VISIT [facility] Start: 04-25-2023 ANNUAL PCP TEAM WAREHOUSE LOGISTICS MANAGER JOSE L DISEASE VISIT ANNUAL PCP TEAM CHRONIC DISEASE VISIT [facility] Start: 11-02-2022 Hemoglobin A1c measurement HbA1C [facility] Start: 11-02-2022 Hemoglobin A1c/Hemoglobin.total in Blood HBA1C [facility] Start: 10-16-2022 ADVANCE DIRECTIVE DISCUSSION ADVANCE DIRECTIVE DISCUSSION [facility] Start: 06-16-2022 Influenza vaccination [facility] Start: 10-16-2021 ADVANCE DIRECTIVE DISCUSSION ADVANCE DIRECTIVE DISCUSSION [facility] Start: 06-16-2021 Influenza vaccination INFLUENZA (#1) [facility] Start: 06-15-2021 COVID-19 VACCINE (3 - Booster for Moderna series) COVID-19 VACCINE (3 - Booster for Moderna series) [facility] Start: 03-10-2021 COVID-19 VACCINE (3 - Booster for Moderna series) COVID-19 VACCINE (3 - Booster for Moderna series) [facility] Start: 01-29-2018 End: 01-29-2018 Appointment Appointment [facility] Work Phone: Start: 2017 ADVANCE DIRECTIVE DISCUSSION ADVANCE DIRECTIVE DISCUSSION [facility] Start: 2017 Pneumococcal 65+ yea rs Vaccine (1 - PCV) Pneumococcal 65+ years Vaccine (1 - PCV) [facility] Start: 2017 PNEUMOVAX AGE 65 AND OVER WITH 5YR LOOKBACK (#1) PNEUMOVAX AGE 65 AND OVER WITH 5YR LOOKBACK (#1) [facility] Start: 08-02-2017 End: 08-02-2017 Appointment Appointment [facility] Work Phone: Start: 08-02-2017 End: 08-02-2017 Follow Up Appt 6 months Follow Up Appt 6 months [facility] Work Phone: Start: 08-02-2017 End: 08-02-2017 MMM MMM [facility] Work Phone: Start: 08-02-2017 End: 08-02-2017 Follow Up Appt 6 months Follow Up Appt 6 months [facility] Work Phone: Start: 08-02-2017 End: 08-02-2017 MMM MMM [facility] Work Phone: Start: 09-03-2014 Hepatitis B surface antibody level LDL CHOLESTEROL [facility] Start: 08-16-2014 Hepatitis B surface antibody level LDL Cholesterol [facility] Start: 02-13-2014 End: 09-05-2013 *Hepatic Function Panel *Hepatic Function Panel [facility] Work Phone: Start: 02-13-2014 End: 09-05-2013 Lipid panel [AGGREGATE] *Lipid Profile CC PCP [facility] Work Phone: Start: 02-13-2014 End: 09-05-2013 *Hepatic Function Panel *Hepatic Function Panel [facility] Work Phone: Start: 02-13-2014 End: 09-05-2013 Lipid panel [AGGREGATE] *Lipid Profile CC PCP [facility] Work Phone: Start: 08-16-2013 End: 09-03-2013 *Hepatic Function Panel *Hepatic Function Panel [facility] Work Phone: Start: 08-16-2013 End: 09-03-2013 Lipid panel [AGGREGATE] *Lipid Profile CC PCP [facility] Work Phone: Start: 08-16-2013 End: 09-03-2013 *Hepatic Function Panel *Hepatic Function Panel [facility] Work Phone: Start: 08-16-2013 End: 09-03-2013 Lipid panel [AGGREGATE] *Lipid Profile CC PCP [facility] Work Phone: Start: 04-23-2013 End: 08-02-2017 SUPPLY CHAIN INTERN SUPPLY CHAIN INTERN [facility] Work Phone: Start: 04-23-2013 End: 08-02-2017 Ecg routine ecg w/least 12 lds w/i&r EKG (In office) [facility] Work Phone: Start: 04-23-2013 End: 08-02-2017 Follow Up Appt 6 months Follow Up Appt 6 months [facility] Work Phone: Start: 04-23-2013 End: 08-02-2017 SUPPLY CHAIN INTERN SUPPLY CHAIN INTERN [facility] Work Phone: Start: 04-23-2013 End: 08-02-2017 Electrocardiogram, complete EKG (In office) [facility] Work Phone: Start: 04-23-2013 End: 08-02-2017 Follow Up Appt 6 months Follow Up Appt 6 months [facility] Work Phone: Start: 2012 RSV Vaccine (1 - 1-d ose 60+ series) RSV Vaccine (1 - 1-dose 60+ series) [facility] Start: 10-23-2012 End: 04-03-2013 Follow Up Appt 6 months Follow Up Appt 6 months [facility] Work Phone: Start: 10-23-2012 End: 04-03-2013 Follow Up Appt 6 months Follow Up Appt 6 months [facility] Work Phone: Start: 10-16-2012 End: 03-04-2013 *Hepatic Function Panel *Hepatic Function Panel [facility] Work Phone: Start: 10-16-2012 End: 03-04-2013 Lipid panel [AGGREGATE] *Lipid Profile [facility] Work Phone: Start: 10-16-2012 [...] 6 months Follow Up Appt 6 months [facility] Work Phone: Start: 08-31-2011 End: 08-31-2011 Follow Up Appt 6 months Follow Up Appt 6 months [facility] Work Phone: Start: 08-31-2011 End: 08-31-2011 Follow Up Appt 6 months Follow Up Appt 6 months [facility] Work Phone: Start: 2007 PROSTATE CANCER SCREENING DISCUSSION PROSTATE CANCER SCREENING DISCUSSION [facility] Start: 2002 Shingles vaccine (1 of 2) Shingles vaccine (1 of 2) [facility] Start: 2002 SHINGRIX VACCINE (1 of 2) SHINGRIX VACCINE (1 of 2) [facility] Start: 1997 COLOGUARD (FIT-DNA) COLOGUARD (FIT-D NA) [facility] Start: 1997 Colonoscopy COLONOSCOPY [facility] Start: 1997 COLORECTAL CANCER SCREENING COLORECTAL CANCER SCREENING [facility] Start: [address] COLONOGRAPHY [facility] Start: 1997 DIABETES SCREEN DIABETES SCREEN [facility] Start: 1997 FECAL OCCULT BLOOD FECAL OCCULT BLOO D [facility] Start: 1997 Screening for malign ant neoplasm of colon [facility] Start: 1997 SIGMOIDOSCOPY SIGMOIDOSCOPY [facility] Start: 1992 Lipid panel Lipids [facility] Start: 1992 Prostate specific antigen measurement Prostate Specific Antigen (PSA) Screening or Monitoring [facility] Start: 1987 LIPID SCREEN LIPID SCREEN [facility] Start: 1971 DTaP/Tdap/Td vaccine (1 - Tdap) DTaP/Tdap/Td vaccine (1 - Tdap) [facility] Start: 1971 Urine microalbumin profile DTAP,TDAP,TD (1 - Tdap) [facility] Start: 1970 BP CONTROLLED (<130/80) BP CONTROLLE D (<130/80) [facility] Start: 1970 Hepatitis B surface antibody level LDL CHOLESTEROL [facility] Start: 1970 HEPATITIS C SCREENING HEPATITIS C SC REENING [facility] Start: 1970 Hepatitis C screening S [facility] Start: 1964 Adult depression screening assessment DEPRESSION SCREENING [facility] Start: 1964 Depression Screen Depression Screen [facility] Start: 1962 3 comp foot exam completed DIABETIC FOOT [facility]AM [facility] Start: 1962 Diabetic foot examination Diabetic Foot Exam [facility] Start: 1962 Glaucoma screening Dilated Retinal E xam [facility] Start: 1962 Hepatitis B screening URINE ALBUMIN:CREATININE RATIO [facility] Start: 1962 Hepatitis C antibody , confirmatory test DILATED RETINAL EXAM [facility] Start: 1958 PNEUMOCOCCAL: 65+ (1 - PCV) PNEUMOCOCCAL: 65+ (1 - PCV) [facility] Start: 1957 COVID-19 VACCINE (1) COVID-19 VACCIN E (1) [facility] Start: 1957 Hemoglobin A1c/Hemoglobin.total in Blood HBA1C [facility] 24 Hour ECG [facility] End: 11-30-2023 MRI 3D POST PROCESSING MRI 3D POST PROCESSING Radiology Routine Cognitive impairment, mild, so stated 1 Occurrences starting 10/31/2022 until 11/30/2023 [facility] Work Phone: Comment on above: 1 Occurrences starti ng 10/31/2022 until 11/30/2023 End: 01-08-2024 Mri brain brain stem w/o contrast material MRI BRAIN WO IVCON Radiology Routine Cerebral infarction, unspecified mechanism (HCC) 1 Occurrences starting 12/09/2022 until 01/08/2024 [facility] Work Phone: Comment on above: 1 Occurrences starti ng 12/09/2022 until 01/08/2024 End: 11-30-2023 MRI BRAIN W QUANT WO IVCON MRI BRAIN W QUANT WO IVCON Radiology Routine Cognitive impairment, mild, so stated 1 Occurrences starting 10/31/2022 until 11/30/2023 [facility] Work Phone: Comment on above: 1 Occurrences starti ng 10/31/2022 until 11/30/2023 NM Heart Views W str ess and W radionuclide IV [facility] Patient Education [facility] Work Phone: [facility] Work Phone: [facility] Immunizations Immunization Date Immunization Notes Care Provider [facility] 08-29-2024 influenza, high dose seasonal, preservative-free Dr. Kem Davila MD Work Phone: [facility] 08-29-2024 RSV Adult BiValent (Abrysvo) Dr. Kem Davila MD Work Phone: [facility] 08-28-2023 influenza, injectabl e, quadrivalent, preservative free Dr. Kem Davila Work Phone: [facility] 08-28-2023 influenza virus vacc ine, unspecified formulation Emeli Hollins MD Work Phone: [facility] 11-03-2022 tetanus toxoid, redu gwen diphtheria toxoid, and acellular pertussis vaccine, adsorbed Emeli Hollins MD Work Phone: [facility] 08-18-2022 influenza (HD-IIV4) vaccine, age 65+ yr, high dose, quadrivalent, PF (FLUZONE HIGH-DOSE) Emeli Hollins MD Work Phone: [facility] 08-18-2022 Influenza, high dose seasonal Dr. Kem Davila MD Work Phone: [facility] 08-18-2022 influenza, high dose seasonal, preservative-free Dr. Kem Davila Work Phone: [facility] 08-23-2021 pneumococcal polysaccharide vaccine, 23 valent Emeli Hollins MD Work Phone: [facility] 08-19-2021 influenza (aIIV4) vaccine, age 65+ yr, quadrivalent, PF (FLUAD QUAD) Emeli Hollins MD Work Phone: [facility] 08-19-2021 Influenza, high dose seasonal Dr. Kem Davila MD Work Phone: [facility] 08-19-2021 influenza, high dose seasonal, preservative-free Dr. Kem Davila Work Phone: [facility] 08-19-2021 influenza, injectabl e, quadrivalent, preservative free Dr. Kem Davila MD Work Phone: [facility] 01-13-2021 Covid (Moderna) Dr. Kem sandoval Work Phone: [facility] 12-17-2020 Covid (Moderna) Dr. Kem sandoval Work Phone: [facility] 08-10-2020 influenza (aIIV4) vaccine, age 65+ yr, quadrivalent, PF (FLUAD QUAD) Emeli Hollins MD Work Phone: [facility] 08-10-2020 Influenza, high dose seasonal Dr. Kem Davila MD Work Phone: [facility] 08-10-2020 influenza, high dose seasonal, preservative-free Dr. Kem Davila Work Phone: [facility] 08-10-2020 influenza, injectabl e, quadrivalent, preservative free Dr. Kem Davila MD Work Phone: [facility] 07-18-2019 Influenza, high dose seasonal Dr. Kem Davila MD Work Phone: [facility] 07-18-2019 influenza, high dose seasonal, preservative-free Emeli Hollins MD Work Phone: [facility] 07-18-2019 pneumococcal conjuga te vaccine, 13 valent Emeli Hollins MD Work Phone: [facility] 01-12-2009 hepatitis B vaccine, pediatric or pediatric/adolescent dosage Emeli Hollins MD Work Phone: [facility] 09-08-2008 influenza virus vacc ine, whole virus Emeli Hollins MD Work Phone: [facility] 09-08-2008 influenza, injectabl e, quadrivalent, preservative free Dr. Kem Davila Work Phone: [facility] 08-11-2008 hepatitis B vaccine, pediatric or pediatric/adolescent dosage Emeli Hollins MD Work Phone: [facility] 07-10-2008 hepatitis B vaccine, pediatric or pediatric/adolescent dosage Emeli Hollins MD Work Phone: [facility] Payers Date Payer Category Payer Self-pay [id number] 2017 Medicare MEDICARE MEDICAR E A AND B [id number] 2017-Present [phone] [place] [address] Medicare [id number] 2017 Medicare MEDICARE MEDICAR E A AND B [id number] 2017-Present [phone] [address] [place] [id number] Medicare [id number] 2017 Unknown [employer] 2N D [id number] 2017-Present [phone] [address] [place] [address] Indemnity [id number] 2017 Unknown [employer] 2N D [id number] 2017-Present [phone] [address] [address] [place] [address] Indemnity [id number] 2017 Medicare [id number] 2017 Unknown [id number] 1950 Unknown [id number] Private Health Insurance H [id number] Unknown [facility] *DO NOT USE* [id number] Unknown [id number] Unknown [id number] Unknown [id number] Unknown [id number] Unknown [id number] Social History Date Type Detail Facility Start: 12-19-2021 End: 10-20-2023 Tobacco smoking status VTIS Tobacco smoking consumption unknown [facility] Start: 1950 Sex Assigned At Not on file [facility] Start: 04-13-2022 End: 07-20-2022 Exposure to SARS-CoV-2 (event) Not sure [facility] Start: 09-17-2019 None [facility] Start: 09-17-2019 Spouse/ Signif icant Other [facility] Start: 1950 Sex Assigned At Male [facility] Start: 12-15-2021 End: 05-19-2025 Tobacco smoking status NHIS Never smoked tobacco [facility] Start: 12-15-2021 End: 12-09-2022 Tobacco use and exposure Smokeless tobacco non-user [facility] Start: 12-15-2021 End: 03-07-2022 Alcohol intake Lifetime non-drinker (finding) [facility] Start: 12-15-2021 End: 04-23-2022 History SDOH Alcohol Frequency 1 [facility] Start: 04-25-2022 End: 05-13-2024 Alcohol intake Current drinker of alcohol (finding) [facility] Start: 04-25-2022 History SDOH Alcohol Comment social [facility] Start: 03-21-2023 End: 05-13-2024 History of Social function [facility] Start: 03-21-2023 End: 05-13-2024 Tobacco use panel [facility] Adult Depression Screening Assessment 0 [facility] Medical Equipment Procedure Code Equipment Code Equipment [...] 28 gauge misc Start: 11-03-2022 End: 11-10-2022 DOUGH,CEMENT 6191-1-010 FDA Start: 03-05-2018 DOUGH,CEMENT 6191-1-010 [...] 31 gauge misc Start: 11-10-2022 End: 12-12-2023 DOUGH,CEMENT 6191-1-010 FDA Start: 03-05-2018 DOUGH,CEMENT 6191-1-010 [...] 31 gauge misc Start: 11-10-2022 End: 12-12-2023 ABDULLAHI KOENIG 6191-1-010 FDA Start: 03-05-2018 ARYACEMENT 6191-1-010 FDA [...] & Type Note Facility 05-19-2025 Discharge summary [facility] 05-19-2025 Radiology Diagnostic study note [facility] Services [address] [place] [address] Chest PA and Lateral MR#: [id number] Acct: [id number] Name: RUSLAN STEPHENS Rep #: [id number] : 1950 M 74 From: Reinaldo Dick MD PCP: Dr. Kem Davila MD Status: REG ER Study:Chest PA and Lateral Date of Exam: 05/19/25 Exam# [id number] Ordering Dr: Jayson Lerner DO PROCEDURE: CHEST [...] Lateral IMPRESSION: NO ACUTE FINDINGS. Reading Location: [id number] CC: Dr. Kem Davila MD; Dr. Jayson Ellison DO ~ Help Desk Team Leader: Signed [facility] 05-12-2025 Evaluation note Diagnosis Onset Date Resolution Atherosclerotic heart disease of [place] coronary artery without angina pectoris chronic May 12, 2025 2:59pm Essential (primary) hypertension chronic May 12, 2025 2:59pm Hyperlipidemia chronic May 12, 2025 2:59pm [facility] Work Phone: 1(417) 653-519707-28-2025 Evaluation note* Diagnosis Onset Date Resolution Status Admit Date Atherosclerotic heart diseas e of [place] coronary artery without angina pectoris chronic May 12, 2025 2:59pm Essential (primary) hypertension chr onic May 12, 2025 2:59pm Hyperlipidemia chronic May 12, 2025 2:59pm Bradycardia acute May 20, 2 025 10:17am Exertional dyspnea acute May 20, 2025 10:17am Atherosclerotic heart diseas e of [place] coronary artery without angina pectoris chronic May 20, 2025 10:17am Essential (primary) hypertension chr onic May 20, 2025 10:17am Hyperlipidemia chronic May 10:17am [facility] Work Phone: 1(952) 568-453107-28-2025 Progress [facility] [address] [place], [place] [id number] OFFICE VISIT Date of Service: 05/12/25 MR#: [id number] Acct: [id number] Name: RUSLAN STEPHENS Rep #: [id number] : 1950 Provider: LAMAR Link Age/Sex: 74/M Location: [facility] Status: Signed HPI HPI History of Present Illness Details: RUSLAN STEPHENS, is a 74 M who presents to the office today for a follow-up visit.? He is a gentleman with a history of coronary artery disease status post bare-metal stenting to the proximal left anterior descending artery in 2005 at [facility].? 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 by: Is patient in [...] the past year?: No PFSH Medical History (Reviewed 05/12/25 @ 15:33 by Joseph Link [employer], [employer]) Gout Near syncope Urinary tract infection Obesity History of non-ST elevation myocardial infarction (NSTEMI) (09/09/06) Essential (primary) hypertension Hernia Hyperlipidemia Atherosclerotic heart disease of [place] coronary artery without angina pectoris Surgical History (Reviewed 05/12/25 @ 15:33 by Joseph H Roof [employer], [employer]) Cataract extraction status H/O wrist surgery History of back surgery History of herniorrhaphy History of knee replacement (2018) History of left heart catheterization (11/27/17) H/O knee surgery History of coronary artery stent placement (09/09/06) Family History Father Myocardial infarction CAD (coronary artery disease) Mother Hx of CABG CAD (coronary artery disease) Brother Hypertension Brother Hypertension Social History household members: spouse current occupational status: employed 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 Average [...] and Plan (1) Atherosclerotic heart disease of [place] coronary artery without angina pectoris: Status: Chronic Qualifiers: [place] vs. transplanted heart: [place] heart Qualified Code(s): I25.10 - Atherosclerotic heart disease of [place] coronary artery without angina pectoris Comment: YCR-KHV-Ents LAD w/ 4.0 x 12 mm Liberte [...] Code Off vis,est,level 4 Diagnoses Atherosclerosis of [place] coronary artery of [place] heart without angina pectoris I25.10 [place] vs. transplanted heart: [place] heart Essential (primary) hypertension I10 Pure hypercholesterolemia E78.00; E78.0 Hyperlipidemia type: pure hypercholesterolemia Coding Level of Care Code Off vis,est,level 4 Diagnoses Atherosclerosis of [place] coronary artery of [place] heart without angina pectoris I25.10 [place] vs. transplanted heart: [place] heart Essential (primary) hypertension I10 Pure hypercholesterolemia E78.00; E78.0 Hyperlipidemia type: pure hypercholesterolemia Clinical Quality Measures Falls Risk Screening/Assistive Devices Have you fallen in the past year?: No Cardiac Ejection fraction %: 55 05/12/25 1538 P [employer]> Date _ Joseph Pradhanignashley Signature: Date (if applicable) CC: Dr. Kem Davila MD ~ [facility]07-28-2025 Progress note Author Joseph Likn [facility] Note Date/Time May 12, 2025 3:38 pm [facility] [address] [place] [address]. [address] [place] [address] OFFICE VISIT Date of Service: 05/12/25 MR#: [id number] Acct: [id number] Name: RUSLAN STEPHENS Rep #: [id number] : 1950 Provider: LAMAR Link Age/Sex: 74/M Location: [facility] Status: Signed HPI HPI History of Present Illness Details: RUSLAN STEPHENS, is a 74 M who presents to the office today for a follow-up visit.? He is a gentleman with a history of coronary artery disease status post bare-metal stenting to the proximal left anterior descending artery in 2005 at [facility].? 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 by: Is patient in [...] the past year?: No PFSH Medical History (Reviewed 05/12/25 @ 15:33 by Joseph Link [employer], [employer]) Gout Near syncope Urinary tract infection Obesity History of non-ST elevation myocardial infarction (NSTEMI) (09/09/06) Essential (primary) hypertension Hernia Hyperlipidemia Atherosclerotic heart disease of [place] coronary artery without angina pectoris Surgical History Cataract extraction status H/O wrist surgery History of back surgery History of herniorrhaphy History of knee replacement (2018) History of left heart catheterization (11/27/17) H/O knee surgery History of coronary artery stent placement (09/09/06) Family History Father Myocardial infarction CAD (coronary artery disease) Mother Hx of CABG CAD (coronary artery disease) Brother Hypertension Brother Hypertension Social History household members: spouse 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 Average [...] and Plan (1) Atherosclerotic heart disease of [place] coronary artery without angina pectoris: Status: Chronic Qualifiers: [place] vs. transplanted heart: [place] heart Qualified Code(s): I25.10 -Atherosclerotic heart disease of [place] coronary artery without angina pectoris Comment: BOF-CIX-Reuf LAD w/ 4.0 x 12 mm Liberte [...] Code Off vis,est,level 4 Diagnoses Atherosclerosis of [place] coronary artery of [place] heart without angina pectoris I25.10 [place] vs. transplanted heart: [place] heart Essential (primary) hypertension I10 Pure hypercholesterolemia E78.00; E78.0 Hyperlipidemia type: pure hypercholesterolemia Coding Level of Care Code Off vis,est,level 4 Diagnoses Atherosclerosis of [place] coronary artery of [place] heart without angina pectoris I25.10 [place] vs. transplanted heart: [place] heart Essential (primary) hypertension I10 Pure hypercholesterolemia E78.00; E78.0 Hyperlipidemia type: pure hypercholesterolemia Clinical Quality Measures Falls Risk Screening/Assistive Devices Have you fallen in the past year?: No Cardiac Ejection fraction %: 55 05/12/25 1538 <Electronically signed by Joseph NEWTON> Date _ Joseph Link NP, NP-C Cosigner Signature: Date (if applicable) CC: Dr. Kem Davila MD ~ [facility] Work Phone: 1(459) 142-286607-29-2024 NoteHNO ID: [id number] Author: EMELI HOLLINS MD Service: ? Author [...] as appropriate. Please see relevant sections in epic EHR for details Current Medications (identify differences [...] lb 9.1 oz) BMI 32.72 kg/m? GEN: Pleas (more content not included)...[facility]07-29-2024 History of Present illness Narrative* Emeli [...] as appropriate. Please see relevant sections in epic EHR for details Current Medications (identify differences [...] per tablet Take by mouth. 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 Seen by cerebrovascular medicine and advised MRI brain and a follow-up visit in a year. -Okay to continue aspirin. Remain off of Plavix. Follow-Up - 6 months. Needs MOCA next visit I spent a total of 30 minutes on the date of the service which included preparing to see the patient, [id number] patient care, completing clinical documentation, obtaining and/or reviewing separately obtained history, performing a medically appropriate examination, counseling and educating the pat ient/family/caregiver, ordering medications, tests, or procedures, and communicating with other HCPs (not separately reported). Voice recognition software was used to compose this office note. Please excuse any unintended typographical errors Emeli Hollins M.D Geriatric Medicine [facility] documented in this encounterMemorial Hospital01-29-2024 NoteHNO ID: [id number] Author: EMELI HOLLINS MD Service: ? Author [...] as appropriate. Please see relevant sections in [facility] EHR for details Current Medications (identify differences [...] appropriately. No dysa (more content not included)... [facility]06-19-2023 Instructions* Patient Instructions* Emeli Hollins MD [...] have benefit for memory. documented in this encounterMemorial Hospital06-19-2023 History of Present illness Narrative* Emeli Hollins [...] (H) 4.3 - 5.6 % Final Comment: [place] [employer] guidelines indicate that patients with [...] (H) 4.3 - 5.6 % Final Comment: [place] [employer] guidelines indicate that patients with [...] and risk of MIGUEL ÁNGEL. 6. Anxiety Princeapro has helped. He used to cry and he notices a positive difference in his mood. I spent a total of 40 minutes on the date of the service which included preparing to see the patient, fott-ra-gcii patient care, completing clinical documentation, obtaining and/or reviewing separately obtained history, performing a medically appropriate examination, counseling and educating the pat ient/family/caregiver, ordering medications, tests, or procedures, and communicating with other HCPs (not separately reported). Voice recognition software was used to compose this office note. Please excuse any unintended typographical errors Emeli Hollins MD Geriatric Medicine [facility] 04/03/2023 11:30 AM CC: Referring Physician: MARCO PCP: Ulices Taveras [address] [place] [address] Patient Entered Data: Patient-Reported No flowsheet data [...] No flowsheet data found. documented in this encounterMemorial Hospital02-24-2023 Instructions* Patient Instructions* Jay Miranda MD - [...] year after MRI brain. documented in this encounterMemorial Hospital02-24-2023 History of Present illness Narrative* Jay Miranda MD - 12/09/2022 9:00 AM EST Images from the original note were not included. [facility] Initial Visit Consultation is requested by: Dr. Emeli Hollins PCP: Ulices Taveras [address] [place] [address] Emeli Hollins for [...] in October 2022. 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 Coordination: Rapid alternating movements symmetric bilaterally. Pdxpjw-tr-wcgh, vmfh-zl-vqct without dysmetria bilaterally. Reflexes: 2+/4 reflexes symmetric [...] which included preparing to see the patient, gsop-es-qdvb patient care, completing clinical documentation, obtaining and/or reviewing separately obtained history, performing a medically appropriate examination, counseling and educating the patient/family/caregiver, ordering medications, tests, or procedures, communicating with other HCPs (not separately reported), independently interpreting results (not separately reported), and communicatingresults to the patient/family/caregiver SEEMA Miranda MD. MPH Staff, Cerebrovascular Division [facility] No referring provider defined for this encounter. Ulices Taveras [address] [place] [address] documented in this encounterMemorial Hospital02-15-2023 History of Present illness Narrative* Maricel Guerrero - 11/30/2022 9:47 AM EST 11/30 Faxed signed plan of care and scanned that and fax confirmation into scanned documents. LM documented in this encounterMemorial Hospital01-27-2023 Miscellaneous Notes* Telephone Encounter - Prisca Cazares RN - 11/11/2022 1:15 PM EST Per email from Dr. Miranda, Can you please help with a new patient visit with me for this patient? Referral by a colleague. Called and spoke with patient's spouse, Mirian. Accepted an in person appointment on 12/09 @ [address] Miranda aware. Prisca Cazares RN documented in this encounterMemorial Hospital01-27-2023 Miscellaneous Notes* Telephone Encounter - Emeli Hollins [...] after that is done. documented in this encounterMemorial Hospital01-24-2023 History of Present illness Narrative* RT Huey(R) [...] 08, 2022 10:11 AM documented in this encounterMemorial Hospital01-16-2023 Instructions* Patient Instructions* Emeli Hollins MD - [...] that have benefit for memory. For neuropsychological: [phone] For MRI: [phone] documented in this encounterMemorial Hospital01-16-2023 History of Present illness Narrative* Emeli Hollins MD - 10/31/2022 10:30 AM EST Images from the original note were not included. 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 He got pulled over for [employer] about a month ago. is worried about [...] I, Transportation:I, Medications: {I, Handle Finances: I. (Elisha scale): 8 Ambulation: 5. Can ambulate independently [...] vision impairment and wears glasses Follows with freight trucker:YES Hearing - Hearing aid : Hearing impairment, [...] mellitus), type 2 (HCC) Gout History of [place] (myocardial infarction) Hypercholesterolemia Hypertension Ischemic heart disease [...] No Known Allergies Social History: Primary language: Latvian Marital Status: Living situation: Home w/ Spouse Caregiver stress level:? Moderate Socially engaged? (participates in activities such as clubs, anabaptism, community center, sports, games, visiting friends/relatives, etc?): [...] which included preparing to see the patient, dahv-iw-kthi patient care, completing clinical documentation, obtaining and/or [...] any unintended typographical errors Emeli Hollins MD [facility] documented in this encounterMemorial Hospital10-05-2022 History of Present illness Narrative* Azam Oconnell [...] 2021 - this was normal No diabetes [place] 2005 cardiac stent ------ is on PLavix [...] Enzymes cap Take by mouth. secretin, Human, (AngiologixSTIM) 16 mcg solr For MRI PANCREAS FUNCTION WO/W IVCON. Inject 0.2 mcg/kg/dose intravenously as directed. Slow push at the appropriate time during MRI 1 Each 0 No current facility-administered medications for this visit. ALLERGIES ALLERGIES No Known Allergies PAST MEDICAL HISTORY PAST MEDICAL HISTORY Diagnosis Date Depression DM (diabetes mellitus), type 2 (HCC) Gout History of NC (myocardial infarction) Hypercholesterolemia Hypertension Ischemic heart disease [...] Past Histories independently gathered by the clinical wan support specialist and the remaining scribed note accurately describes [...] 19, 2022 4:17 PM [facility] Hospital Discharge instructions Additional Instructions Recommend drinking 1 glass of MiraLAX every 1-2 hours until you have results. The following day recommend MiraLAX 3 times a day as long as you are on the pain medicine.[facility] Work Phone: 1(476) 403-924508-22-2022 NoteHNO ID: [id number] Author: Ulices Taveras MD Service: ? Author Type: Physician Type: Progress Notes Filed: 06/06/2022 11:18 AM Note Text: This note was created using Polaris Wirelessriter. Subjective Ruslan Stephens is a 71 year [...] received cardiac clearance. He is cleared for procedure.[facility]08-22-2022 NoteHNO ID: [id number] Author: Ulices Taveras MD Service: ? Author Type: Physician Type: Progress Notes Filed: 06/06/2022 11:18 AM Note Text: This note was created using DataContact. Subjective Ruslan Stephens is a 71 year [...] and Affect: Mood normal. Behavior: Behavior normal. [facility]08-22-2022 History of Present illness Narrative* Ulices Taveras MD - 06/06/2022 11:16 AM EDT This note was created using DataContact. Subjective Ruslan Stephens is a 71 year [...] AM EDT This note was created using [employer]. Subjective Ruslan Stephens is a 71 year [...] normal. Assessment and Plan documented in [facility]07-[facility]-2022 NoteHNO ID: [id number] Author: Ulices Taveras MD Service: ? Author Type: Physician Type: Progress Notes Filed: 05/09/2022 1:59 PM Note Text: This note was created using [employer]. Subjective Ruslan Stephens is a 71 year [...] weight. Reduce stress. Recheck A1c in 3 months.[facility]07-25-2022 History of Present illness [...] A1c in 3 months. documented in this encounterMem[facility] Hospital07-14-2022 Miscellaneous Notes* Telephone Encounter - Ulices Taveras MD - 04/28/2022 4:55 PM EDT [facility] * Telephone Encounter - Tequila Rodriguez LPN - 04/28/2022 3:34 PM EDT Pt called in asking to be referred to pain management. documented in this encounterMem[facility]07-11-2022 NoteHNO ID: [id number] Author: Ulices Taveras MD Service: ? Author Type: Physician Type: Progress Notes Filed: 04/25/2022 6:00 PM Note Text: This note was created using DataContact. Subjective Ruslan Stephens is a 71 year [...] daily for 7 days. Moist heat. Stretching exercises.[facility]07-11-2022 History of Present illness Narrative* Ulices Taveras MD - 04/25/2022 5:57 PM EDT This note was created using DataContact. Subjective Ruslan Stephens is a 71 year [...] Moist heat. Stretching exercises. documented in this encounterMemorial Hospital07-11-2022 Nurse Note* Kaila Gary LPN - 04/25/2022 4:55 PM EDT Pt had went to [facility] and had an xray that didn't show anything. Pt was prescriped medrol pk onThursday prescribed flexaril 5 mg tab Pt still has complaints of 5/10 pain documented in this encounterMemorial Hospital04-27-2022 History of Present illness Narrative* VALENTE RiberaR) - 02/09/2022 10:30 AM EDT Radiology Service [...] MRB4 February 09, 2022 12:09 PM * Josefa Mart RN - 02/09/2022 10:30 AM EDT [...] 09, 2022 9:44 AM documented in this encounterMemorial Hospital04-27-2022 History of Present illness Narrative* Eufemia Arteaga [...] need for follow-up Electronically Signed By Eufemia Chandler, RN documented in this encounterMemorial Hospital01-31-2022 Miscellaneous Notes* Telephone Encounter - Anjelica Ross Pss - 2021 3:[address] Oconnell Medical Records including: H&P, CT scan, Pathology report, colonoscopy and labs have been received and uploaded to Patient's chart for your review. Anjelicaher Ross (Joni) Stump Blower II DDSI documented in this encounterMemorial Hospital12-12-2019 History of Past illness Narrative* Problem Noted Date Resolved Date Sepsis 09/26/2019 06/26/2022 documented as of this encounter (statuses as of 07/04/2022) [facility] Narrative* Problem Noted Date Resolved Date Sepsis 09/26/2019 06/26/2022 documented as of this encounter (statuses as of 07/20/2022) [facility] Narrative* Problem Noted Date Resolved Date Sepsis 09/26/2019 06/26/2022 documented as of this encounter (statuses as of 08/22/2022) [facility] Narrative* Problem Noted Date Resolved Date Sepsis 09/26/2019 06/26/2022 documented as of this encounter (statuses as of 08/26/2022) [facility] Narrative* Problem Noted Date Resolved Date Sepsis 09/26/2019 06/26/2022 documented as of this encounter (statuses as of 10/25/2022) [facility] Narrative* Problem Noted Date Resolved Date Sepsis 09/26/2019 06/26/2022 documented as of this encounter (statuses as of 10/31/2022) [facility] Narrative* Problem Noted Date Resolved Date Sepsis 09/26/2019 06/26/2022 documented as of this encounter (statuses as of 11/01/2022) [address]12-2019 History of Past illness Narrative* Problem Noted Date Resolved Date Sepsis 09/26/2019 06/26/2022 documented as of this encounter (statuses as of 11/09/2022) [facility] Narrative* Problem Noted Date Resolved Date Sepsis 09/26/2019 06/26/2022 documented as of this encounter (statuses as of 11/11/2022) [address]12[address]2019 History of Past illness Narrative* Problem Noted Date Resolved Date Sepsis 09/26/2019 06/26/2022 documented as of this encounter (statuses as of 11/11/2022) [address]12-2019 History of Past illness Narrative* Problem Noted Date Resolved Date Sepsis 09/26/2019 06/26/2022 documented as of this encounter (statuses as of 11/30/2022) [facility] Narrative* Problem Noted Date Resolved Date Sepsis 09/26/2019 06/26/2022 documented as of this encounter (statuses as of 12/08/2022) [address]12[address]2019 History of Past illness Narrative* Problem Noted Date Resolved Date Sepsis 09/26/2019 06/26/2022 documented as of this encounter (statuses as of 12/27/2022) [address]2019 History of Past illness Narrative* Problem Noted Date Resolved Date Sepsis 09/26/2019 06/26/2022 documented as of this encounter (statuses as of 04/06/2023) [facility]* Diagnosis Onset Date Resolution Status Atherosclerotic heart diseas e of [place] coronary artery without angina pectoris chronic Essential (primary) hypertension chronic Hyperlipidemia chronic History of coronary artery stent placement September 092005 resolved [facility] Work Phone: 1(560) 638-689711-25-2006 Evaluation note* Diagnosis Onset Date Resolution Status Near syncope acute Shortness of breath acute Essential (primary) hypertension chronic History of coronary artery stent placement September 092005 [facility] Work Phone: Chief complaint+Reason for visit Narrative* 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 but did not inform him [...] intact Psych: Cooperative, appropriate mood and affect [facility] Medical History (Reviewed 05/12/25 @ 15:33 by Joseph Link [employer], [employer]) Gout Near syncope Urinary tract infection Obesity History of non-ST elevation myocardial infarction (NSTEMI) (09/09/06) Essential (primary) hypertension Hernia Hyperlipidemia Atherosclerotic heart disease of [place] coronary artery without angina pectoris Home Medications ?Medication ?Instructions ?Recorded ?Last Taken ?Type aspirin 81 mg chewable tablet 81 mg PO DAILY@0800 02/14 12/31 Unknown Rx blood-glucose meter #1 ea [...] Allergies Allergy Verified 05/12/25 15:05 Family History (Reviewed 05/12/25 @ 15:33 by Joseph Link [employer], [employer]) Father Myocardial infarction CAD (coronary artery disease) [...] spouse 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 His last cardiac cath [id number] showed mild CAD with no high- grade [...] % (Auto) 66.4 Lymph % (Auto) 19.0 [place] % (Auto) 11.5 H Eos % (Auto) [...] Clarity Clear Urine pH 6.0 Ur Specific [place] 1.020 Urine Protein 30 H Urine Glucose [...] 09:30 IMPRESSION: NO ACUTE FINDINGS. Reading Location: [id number] Discharge Plan Triage Chief Complaint: Shortness of [...] PO DAILY Qty: 90 1RF calcium carb-D3-mag [id number] 333 mg-200 unit -133 mg-5 mg tablet [...] MD [Primary Care Provider] - Print Language: Latvian What to do if you have Problems For any increased pain, shortness of breath, bleeding, nausea or vomiting, chestpain, or any unexpected problems, contact your Primary Care Provider. Call [facility] ([phone]) or report to the closest Emergency Room. Call 911 if necessary. 05/19/25 1148 <Electronically signed by Jayson Ellison DO> Cosigner Signature (if applicable): CC: Dr. Kem Davila MD ~ Signed [facility] Work Phone: Evaluation note* Diagnosis Exocrine pancreatic insufficiency Other specified disease of pancreas documented in this encounter [facility] noteNo assessment information availableWSalem City Hospital Work Phone: Evaluation note* Diagnosis Right hip pain- Primary Pain in joint, pelvic region and thigh Osteoarthritis of both hips, unspecified osteoarthritis type documented in this encounter [facility] Work Phone: Evaluation note* Diagnosis Acute midline low back pain with right-sided sciatica- Primary documented in this encounter [facility] note* Diagnosis Bilateral low back pain with sciatica, sciatica laterality unspecified, unspecified chronicity- Primary documented in this encounter [facility] note* Diagnosis Primary hypertension- Primary Unspecified essential hypertension Mixed hyperlipidemia Ischemic heart disease Chronic ischemic heart disease, unspecified Hx of myocardial infarction Old myocardial infarction Diabetes mellitus type II (HCC) Idiopathic gout, unspecified chronicity, unspecified site Anxiety Anxiety state, unspecified documented in this encounter [facility] note* Diagnosis Preoperative clearance- Primary Preoperative examination, unspecified documented in this encounter [facility] note* Diagnosis 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)]- Primary Functional diarrhea documented in this encounter [facility] note* Diagnosis Cognitive impairment, mild, so stated- Primary Mild cognitive impairment, so stated Fall, initial encounter Gait disturbance Abnormality of gait Anxiety Anxiety state, unspecified Bilateral hearing loss, unspecified hearing loss type Impacted cerumen of left ear Impacted cerumen [facility]* Diagnosis Cognitive impairment, mild, so stated Mild cognitive impairment, so stated documented in this encounter [facility] note* Diagnosis Cerebral infarction, unspecified mechanism (HCC)- Primary White matter abnormality on MRI of brain Nonspecific (abnormal) findings on radiological and other examination of skull and head [facility]* Diagnosis Cognitive impairment, mild, so stated- Primary Mild cognitive impairment, so stated documented in this encounter [facility] note* Diagnosis Onset Date Resolution Status Immunization due noneactive [facility] Work Phone: Evaluation note* Diagnosis Word finding difficulty- Primary Problems with communication (including speech) Gait disturbance Abnormality of gait Anxiety Anxiety state, unspecified documented in this encounter [facility] note* Diagnosis Onset Date Resolution Status Admit Date Atherosclerotic heart diseas e of [place] coronary artery without angina pectoris chronic May 12, 2025 2:59pm Essential (primary) hypertension chr onic May 12, 2025 2:59pm Hyperlipidemia chronic May 12, 2025 2:59pm [facility] Work Phone: Hospital Discharge instructions* Instructions* Pedro Luis Diggs MD - 04/23/2022 Please follow-up with your specialist at [facility]. If the symptoms worsen or persist please return back to the emergency department. [facility] Work Phone: Hospital Discharge instructionsAdditional Instructions Follow-up with cardiology and primary care physician. Return back to ED if symptoms change or worsen.[facility] Work Phone: Reason for referral (narrative)No reason for referral information availableResnick [facility]psych[facility] Work Phone: Summary Purpose Family History No Family History Records Found Relationship Condition Age at Onset Recorded Date/T ivanna father Myocardial infarction Unknown Coronary artery disease Unknown mother History of coronary artery bypass surgery Unknown brother Hypertension Unknown Advance Directives No Advanced Directives Records Found Advance Directive Response Recorded Date/ Time Advance Directives No November 10:11am Living Will No December 19, 2021 3:28am Power of Flight Attendant No December 19 3:28am Documents on File Type Date Recorded 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 Winding Department Expl anation ACP-Advance Directive ACP-Power of Flight Attendant Advance Directive Response Recorded Date/ Time Advance Directives No November 10:11am Living Will No June 21, 2 022 1:13pm Power of Flight Attendant No June 21, 2022 1:13pm Advance Directive Response Recorded Date/ Time Advance Directives No November 9:11am Living Will No October 20 4 12:11pm Power of Flight Attendant No October 20, 2 024 12:11pm Advance Directive Response Recorded Date/ Time Advance Directives No November 10:11am Advance Directive Response Recorded Date/ Time Do you have a Healthcare Power of Flight Attendant? Yes May 19, 2025 9:29am Advance Directives No November 10:11am Chief Complaint and Reason for Visit Chief Complaint Admit Date 1 Y FU May 12, 2025 2:59 pm DIZZINESS May 19, 2025 8:5 4am Reason for Visit Admit Date Atherosclerotic heart diseas e of [place] coronary artery without angina pectoris May 12, 2025 2:59pm Essential (primary) hypertension May 122024 2:59pm Hyperlipidemia May 12, 2025 2:59 pm Chief Complaint 1 Y FU - call home p maria luisa abd pain Z95.5 I25.10 I25.2/LEXISCAN Z95.5 I25.10 I25.2/LEXISCAN Reason for Visit Atherosclerotic hear t disease of [place] coronary artery without angina pectoris Essential (primary) hypertension Hyperlipidemia History of coronary artery stent placement Chief Complaint abd pain Z95.5 I25.10 I25.2/LEXISCAN Z95.5 I25.10 I25.2/LEXISCAN CELIAC PROFILE, CRP Chief Complaint Z95.5 I25.10 I25.2/L EXISCAN Z95.5 I25.10 I25.2/LEXISCAN CELIAC PROFILE, CRP SOB Chief Complaint CELIAC PROFILE, CRP SOB H[place] FU- put on 05-09 DYSPNEA Reason for Visit Near syncope Shortness of breath Essential (primary) hypertension History of coronary artery stent placement Chief Complaint CELIAC PROFILE, CRP SOB [place] FU- put on 05-09 DYSPNEA POST OP Reason for Visit Near syncope Shortness of breath Essential (primary) hypertension History of coronary artery stent placement Chief Complaint Admit Date 1 Y FU May 12, 2025 2:59 pm Chief Complaint Admit Date 1 Y FU May 12, 2025 2:59 pm DIZZINESS May 19, 2025 8:5 4am S/P [facility] 05/19May 20, 2025 10: 17am Reason for Visit Admit Date Atherosclerotic heart diseas e of [place] coronary artery without angina pectoris May 12, 2025 2:59pm Essential (primary) hypertension May 122024 2:59pm Hyperlipidemia May 12, 2025 2:59 pm Bradycardia May 20, 2025 10: 17am Exertional dyspnea May 20, 2025 10: 17am Atherosclerotic heart diseas e of [place] coronary artery without angina pectoris May 20, 2025 10:17am Essential (primary) hypertension May 20, 2025 10:17am Hyperlipidemia May 20, 2025 10: 17am Reason for Referral Specialty Diagnoses / Procedures Referred By Darryl pagan Referred To Contact MR IMAGING Diagnoses Exocrine pancreatic insufficiency Procedures MRI PANCREAS FUNCTION WO/W IVCON MRI ABDOMEN W/O & W/CONTRAST MATERIAL Azam Oconnell MD [address] [place] [address] Mr Imaging Referral ID Status Reason Start Date Expiration Date V isits Requested Visits Authorized [id number] Closed Auto-Generate d Referral 12/15/2021 01/14/2023 1 1 Specialty Diagnoses / Procedures Referred By Darryl pagan Referred To Contact [facility] Diagnoses Acute midline low back pain with right-sided sciatica Procedures CONSULT TO PHYSICAL THERAPY PHYSICAL THERAPY EVALUATION HIGH COMPLEX 45 MINS Ulices Taveras MD [address] [place] [address] [facility] [address] [address] Referral ID Status Reason Start Date Expiration Date Visits Requested Visits Authorized [id number] Authorized PCP Requested Referral Auto-Generate d Referral 04/25/2022 04/25/2023 99 99 Specialty Diagnoses / Procedures Referred By Darryl pagan Referred To Contact Pain Management Diagnoses Bilateral low back pain with sciatica, sciatica laterality unspecified, unspecified chronicity Procedures CONSULT TO [facility] ([facility]) Ulices Taveras MD [address] [place] [address] [facility] [address] [place] [address] Referral ID Status Reason Start Date Expiration Date Visits Requested Visits Authorized [id number] Ref Not Required PCP Requested Referral 04/28/2022 04/28/2023 1 1 Specialty Diagnoses / Procedures Referred By Contac t Referred To Contact [facility] Diagnoses Fall, initial encounter Gait disturbance Procedures CONSULT TO PHYSICAL THERAPY PHYSICAL THERAPY EVALUATION HIGH COMPLEX [address] [place] [address] [place] [address] [facility] [place] [address] Referral ID Status Reason Start Date Expiration Date Visits Requested Visits Authorized [id number] Authorized PCP Requested Referral Auto-Generate d Referral 10/31/2022 10/31/2023 99 99 Specialty Diagnoses / Procedures Referred By Contac t Referred To Contact MR IMAGING Diagnoses Cognitive impairment, mild, so stated Procedures MRI 3D POST PROCESSING 3D RENDERING W/INTERP&POSTPROC DIFF WORK STATION Emeli Hollins MD [address] [place] [address] Mr Imaging Referral ID Status Reason Start Date Expiration Date Visits Requested Visits Authorized [id number] Pending Review Auto-Generat ed Referral 10/31/2022 11/30/2023 1 1 Specialty Diagnoses / Procedures Referred By Contac t Referred To Contact MR IMAGING Diagnoses Cognitive impairment, mild, so stated Procedures MRI BRAIN W QUANT WO IVCON MRI BRAIN BRAIN STEM W/O CONTRAST MATERIAL Emeli Hollins MD [address] [address] Mr Imaging Referral ID Status Reason Start Date Expiration Date Visits Requested Visits Authorized [id number] Pending Review Auto-Generat ed Referral 10/31/2022 11/30/2023 1 1 Referral ID Status Reason Start Date Expiration Date V isits Requested Visits Authorized [id number] Closed Auto-Generate d Referral 10/31/2022 11/30/2023 1 1 Referral ID Status Reason Start Date Expiration Date V isits Requested Visits Authorized [id number] Closed Auto-Generate d Referral 10/31/2022 11/30/2023 1 1 Specialty Diagnoses / Procedures Referred By Contac t Referred To Contact MR IMAGING Diagnoses Cerebral infarction, unspecified mechanism (HCC) Procedures MRI BRAIN WO IVCON MRI BRAIN BRAIN STEM W/O CONTRAST MATERIAL Jay Miranda MD [address] [place] [address] Mr Imaging Referral ID Status Reason Start Date Expiration Date Visits Requested Visits Authorized [id number] Pending Review Auto-Generat ed Referral 12/09/2022 01/08/2024 1 1 Additional Source Comments (unrecognized sect ion and content) No Status Records FoundNo Status Records FoundNo Status Records FoundNo Status Records FoundNo Status Records FoundNo Status Records Found INFORMATION SOURCE (unrecogn ized section and content) DATE CREATED AUTHOR 10/20/2021 [facility] DATE CREATED AUTHOR AUTHOR'S ORGANIZ ATION 05/27/2022 [facility] DATE CREATED AUTHOR AUTHOR'S ORGANIZ ATION 06/10/2022 [facility] DATE CREATED AUTHOR AUTHOR'S ORGANIZ ATION 11/17/2023 [facility] DATE CREATED AUTHOR AUTHOR'S ORGANIZ ATION 05/24/2024 [facility] DATE CREATED AUTHOR AUTHOR'S ORGANIZ ATION 05/20/2025 [facility] Source Comments (unrecognize d section and content) In the event this informatio n is protected by the Federal Confidentiality of Alcohol and Drug Abuse Patient Records regulations: The Federal rules restrict any use of the information to criminally investigate or prosecute any alcohol or drug abuse patient.[facility] HospitalIn the event this information is protected by the Federal Confidentiality of Alcohol and Drug Abuse Patient Records regulations: The Federal rules restrict any use of the information to criminally investigate or prosecute any alcohol or drug abuse patient.[facility] HospitalIn the event this information is protected by the Federal Confidentiality of Alcohol and Drug Abuse Patient Records regulations: The Federal rules restrict any use of the information to criminally investigate or prosecute any alcohol or drug abuse patient.[facility] HospitalIn the event this information is protected by the Federal Confidentiality of Alcohol and Drug Abuse Patient Records regulations: The Federal rules restrict any use of the information to criminally investigate or prosecute any alcohol or drug abuse patient.[facility] HospitalIn the event this information is protected by the Federal Confidentiality of Alcohol and Drug Abuse Patient Records regulations: The Federal rules restrict any use of the information to criminally investigate or prosecute any alcohol or drug abuse patient.[facility] HospitalIn the event this information is protected by the Federal Confidentiality of Alcohol and Drug Abuse Patient Records regulations: The Federal rules restrict any use of the information to criminally investigate or prosecute any alcohol or drug abuse patient.[facility] HospitalIn the event this information is protected by the Federal Confidentiality of Alcohol and Drug Abuse Patient Records regulations: The Federal rules restrict any use of the information to criminally investigate or prosecute any alcohol or drug abuse patient.[facility] HospitalIn the event this information is protected by the Federal Confidentiality of Alcohol and Drug Abuse Patient Records regulations: The Federal rules restrict any use of the information to criminally investigate or prosecute any alcohol or drug abuse patient.[facility] HospitalIn the event this information is protected by the Federal Confidentiality of Alcohol and Drug Abuse Patient Records regulations: The Federal rules restrict any use of the information to criminally investigate or prosecute any alcohol or drug abuse patient.[facility] HospitalIn the event this information is protected by the Federal Confidentiality of Alcohol and Drug Abuse Patient Records regulations: The Federal rules restrict any use of the information to criminally investigate or prosecute any alcohol or drug abuse patient.[facility] HospitalIn the event this information is protected by the Federal Confidentiality of Alcohol and Drug Abuse Patient Records regulations: The Federal rules restrict any use of the information to criminally investigate or prosecute any alcohol or drug abuse patient.[facility] HospitalIn the event this information is protected by the Federal Confidentiality of Alcohol and Drug Abuse Patient Records regulations: The Federal rules restrict any use of the information to criminally investigate or prosecute any alcohol or drug abuse patient.[facility] HospitalIn the event this information is protected by the Federal Confidentiality of Alcohol and Drug Abuse Patient Records regulations: The Federal rules restrict any use of the information to criminally investigate or prosecute any alcohol or drug abuse patient.[facility] HospitalIn the event this information is protected by the Federal Confidentiality of Alcohol and Drug Abuse Patient Records regulations: The Federal rules restrict any use of the information to criminally investigate or prosecute any alcohol or drug abuse patient.[facility] HospitalIn the event this information is protected by the Federal Confidentiality of Alcohol and Drug Abuse Patient Records regulations: The Federal rules restrict any use of the information to criminally investigate or prosecute any alcohol or drug abuse patient.[facility] HospitalIn the event this information is protected by the Federal Confidentiality of Alcohol and Drug Abuse Patient Records regulations: The Federal rules restrict any use of the information to criminally investigate or prosecute any alcohol or drug abuse patient.[facility] HospitalIn the event this information is protected by the Federal Confidentiality of Alcohol and Drug Abuse Patient Records regulations: The Federal rules restrict any use of the information to criminally investigate or prosecute any alcohol or drug abuse patient.[facility] HospitalIn the event this information is protected by the Federal Confidentiality of Alcohol and Drug Abuse Patient Records regulations: The Federal rules restrict any use of the information to criminally investigate or prosecute any alcohol or drug abuse patient.[facility] HospitalIn the event this information is protected by the Federal Confidentiality of Alcohol and Drug Abuse Patient Records regulations: The Federal rules restrict any use of the information to criminally investigate or prosecute any alcohol or drug abuse patient.[facility] HospitalIn the event this information is protected by the Federal Confidentiality of Alcohol and Drug Abuse Patient Records regulations: The Federal rules restrict any use of the information to criminally investigate or prosecute any alcohol or drug abuse patient.[facility] HospitalIn the event this information is protected by the Federal Confidentiality of Alcohol and Drug Abuse Patient Records regulations: The Federal rules restrict any use of the information to criminally investigate or prosecute any alcohol or drug abuse patient.[facility] HospitalIn the event this information is protected by the Federal Confidentiality of Alcohol and Drug Abuse Patient Records regulations: The Federal rules restrict any use of the information to criminally investigate or prosecute any alcohol or drug abuse patient.[facility] HospitalIn the event this information is protected by the Federal Confidentiality of Alcohol and Drug Abuse Patient Records regulations: The Federal rules restrict any use of the information to criminally investigate or prosecute any alcohol or drug abuse patient.[facility] HospitalIn the event this information is protected by the Federal Confidentiality of Alcohol and Drug Abuse Patient Records regulations: The Federal rules restrict any use of the information to criminally investigate or prosecute any alcohol or drug abuse patient.[facility] HospitalIn the event this information is protected by the Federal Confidentiality of Alcohol and Drug Abuse Patient Records regulations: The Federal rules restrict any use of the information to criminally investigate or prosecute any alcohol or drug abuse patient.[facility] HospitalIn the event this information is protected by the Federal Confidentiality of Alcohol and Drug Abuse Patient Records regulations: The Federal rules restrict any use of the information to criminally investigate or prosecute any alcohol or drug abuse patient.[facility] HospitalIn the event this information is protected by the Federal Confidentiality of Alcohol and Drug Abuse Patient Records regulations: The Federal rules restrict any use of the information to criminally investigate or prosecute any alcohol or drug abuse patient.[facility] HospitalIn the event this information is protected by the Federal Confidentiality of Alcohol and Drug Abuse Patient Records regulations: The Federal rules restrict any use of the information to criminally investigate or prosecute any alcohol or drug abuse patient.[facility] HospitalIn the event this information is protected by the Federal Confidentiality of Alcohol and Drug Abuse Patient Records regulations: The Federal rules restrict any use of the information to criminally investigate or prosecute any alcohol or drug abuse patient.[facility] Reason for Visit (unrecogniz ed section and content) Reason Comments Received Outside Medical Records Reason Comments Patient Education Reason Comments Radiology MRI Specialty Diagnoses / Procedures Referred By Contac t Referred To Contact MR IMAGING Diagnoses Exocrine pancreatic insufficiency Procedures MRI PANCREAS FUNCTION WO/W IVCON MRI ABDOMEN W/O & W/CONTRAST MATERIAL Azam Oconnell MD [address] [place] [address] Mr Imaging Referral ID Status Reason Start Date Expiration Date V isits Requested Visits Authorized [id number] Closed Auto-Generate d Referral 12/15/2021 01/14/2023 1 1 Reason Comments Hip Pain Right hip pain, repo rts he was at [facility] and had an xray a few days [...] STEM W/O CONTRAST MATERIAL Emeli Hollins MD [address] [place] [address] Mr Imaging Referral ID Status Reason Start Date Expiration Date V isits Requested Visits Authorized [id number] Closed Auto-Generate d Referral 10/31/2022 11/30/2023 1 1 Reason Comments Results Reason Comments Forms Reason Comments New Patient Evaluation Reason Comments Follow Up Reason Comments F/U 6 months Pt took meds Care Teams (unrecognized sec tion and content) President + Publisher Relationship Specialty Start Date End Date Ulices Taveras PCP - General Family Practice 01/07/14 President + Publisher Relationship Specialty Start Date End Date Ulices Taveras MD PCP - General Family Practice 01/07/14 President + Publisher Relationship Specialty Start Date End Date Ulices Taveras MD PCP - General Family Practice 01/07/14 President + Publisher Relationship Specialty Start Date End Date Ulices Taveras MD PCP - General Family Practice 01/07/14 President + Publisher Relationship Specialty Start Date End Date Ulices Taveras PCP - General 11/20/18 President + Publisher Relationship Specialty Start Date End Date Ulices Taveras MD PCP - General Family Practice 01/07/14 President + Publisher Relationship Specialty Start Date End Date Ulices Taveras MD PCP - General Family Practice 01/07/14 President + Publisher Relationship Specialty Start Date End Date Ulices Taveras MD PCP - General Family Practice 01/07/14 President + Publisher Relationship Specialty Start Date End Date Ulices Taveras MD PCP - General Family Practice 01/07/14 President + Publisher Relationship Specialty Start Date End Date Ulices Taveras MD PCP - General Family Practice 01/07/14 President + Publisher Relationship Specialty Start Date End Date Ulices Taveras MD PCP - General Family Practice 01/07/14 President + Publisher Relationship Specialty Start Date End Date Ulices Taveras MD PCP - General Family Practice 01/07/14 President + Publisher Relationship Specialty Start Date End Date Ulices Taveras MD PCP - General Family Medicine 01/07/14 President + Publisher Relationship Specialty Start Date End Date Ulices Taveras MD PCP - General Family Medicine 01/07/14 President + Publisher Relationship Specialty Start Date End Date Ulices Taveras MD PCP - General Family Medicine 01/07/14 President + Publisher Relationship Specialty Start Date End Date Ulices Taveras MD PCP - General Family Medicine 01/07/14 President + Publisher Relationship Specialty Start Date End Date Ulices Taveras MD PCP - General Family Medicine 01/07/14 President + Publisher Relationship Specialty Start Date End Date Ulices Taveras MD PCP - General Family Medicine 01/07/14 President + Publisher Relationship Specialty Start Date End Date Ulices Taveras MD PCP - General Family Medicine 01/07/14 President + Publisher Relationship Specialty Start Date End Date Ulices Taveras MD PCP - General Family Medicine 01/07/14 President + Publisher Relationship Specialty Start Date End Date Ulices Taveras MD PCP - General Family Medicine 01/07/14 Team Status: Active Member Role Status Dates Ulices OLEA Family Provider Active Dr. Kem Davila MD Primary Care Provider Active Team Status: Inactive Member Role Status Dates Dr. Kem Davila MD Primary Care Pro vider, Attending Provider, Referring Provider Active Team Status: Inactive Member Role Status Dates Dr. Kem Davila MD Primary Care Provider Active Dr. Jeaneth Guillaume MD Emergency Provider Active President + Publisher Relationship Specialty Start Date End Date Kem Davila MD [address] [address] PCP - General Internal Medicine 10/18/22 Joseph Link, ARIANNA.[employer] [address] [place] [address] Cardiology 07/18/23 Tian Campbell MD [address] [place] [address] Gastroenterology 07/18/23 Team Status: Active Member Role/Relationship Status Dates Ulices OLEA Family Provider Active Dr. Kem Davila MD Primary Care Provider Active Team Status: Inactive Member Role/Relationship Status Dates Dr. Kem Davila MD Primary Care Provider Active Start: May 12, 2025 End: May 12, 2025 Dr. Kem Davila MD Referring Provider Active Start: May 12, 2025 End: May 12, 2025 Joseph Link [employer], [employer] Attending Provider Active S tart: May 12, [...] May 19, 2025 End: May 19, 2025 Team Status: Inactive Member Role/Relationship Status Dr. Kem Davila MD Primary Care Provider Active Start: May 20, 2025 End: May 20, 2025 Dr. Kem Davila MD Referring Provider Active Start: May 20, 2025 End: May 20, 2025 Joseph Link [employer], [employer] Attending Provider Active S tart: May 20, 2025 End: May 20, 2025 Goals (unrecognized section and content) Goals [...] days. 1146 (Given - Provid er: Gabriel Cheatham, TETO) FOR RECORDS PERTAINING TO PATIENTS WHO ARE [...] BE BASED ON THE PRIMARY CLINICAL RECORDS. [facility] [employer] [facility]. provides no warranty or guarantee of the accuracy or completeness of information in this document.
--- OUTSIDE RECORDS SUMMARY | 2025-05-21 06:04 | XMS RPT_ITS | CCD ---
Author Organization [facility] Care Team Providers Care Manager Environmental Services Name Role Phone Suha DRAKE, Maricel Roblero Unavailable Unavailable Carrie Josue Unavailable Carrie Josue Unavailable Carrie Josue Unavailable Ulices Taveras Primary Care Provider Ulices Taveras Primary Care Provider UnavailUlices Wylie Referring Provider Unavailable Roof BILLIARD TABLE MECHANIC, BILLIARD TABLE MECHANIC-C Joseph Tomlinson Attending Provider Roof BILLIARD TABLE MECHANIC, BILLIARD TABLE MECHANIC-C Joseph Tomlinson Other Provider Dr. Baldev Freed [...] Kem Davila Referring Provider [phone] ULICES TAVEARS Consulting Unavailable KEM DAVILA MD Attending Unavailable KEM DAVILA MD Primary Care Unavailable KEM DAVILA MD Admitting Unavailable PROVIDER, UNKNOWN Consulting Unavailable PROVIDER, UNKNOWN Consulting Unavailable Roof WOMEN'S SOCCER COACH.DISPATCHER CLERK, Joseph H Unavailable Shannan DIAZ, Tian Omaira Unavailable [phone] Kem Davila MD Primary Care Provider [phone] KEM DAVILA Primary Care Unavailable EMELI HOLLINS Attending Unavailable KEM DAVILA G Primary Care Unavailable GURVINDER HIBAnnika Attending Unavailable Lola DIAZ, Dr. Fonseca Primary Care Provider [phone] Lola DIAZ, Dr. Fonseca Referring Provider Nikolay BILLIARD TABLE MECHANIC-CJoseph Attending Provider [phone] Scot PATE, Dr. Tyler Emergency Provider Lola, Kem Referring Unavailable [place]gl[place], Kem Primary Care Unavailable Roof LEONEL, Joseph Tomlinson Attending Unavailable Lola, Kem Referring Unavailable Anna Palomares Attending Unavailable Lola, Kem Primary Care Unavailable Lola, Kem Primary Care Unavailable Jayson Ellison Attending Unavailabl e Roseglen, Kem Referring Unavailable Rose[place], Kem Primary Care Unavailable [place], Kem Attending Unavailable Lola, Kem Referring Unavailable Lola, Kem Primary Care Unavailable Roof BILLIARD TABLE MECHANIC, Joseph Tomlinson Attending Unavailable Medications Current Medications [...] TABS One tablet by mouth daily ASPIRIN [id number] Yee M Larry Comment on above: Take [...] daily to monitor blood glucose Calcium Carb-D3-Mag Qlq22-Yohn 333 mg-200 unit -133 mg-5 mg tablet (3 sources) Start: 05-12-2025 Calcium Carb-D3-Mag Lxz89-Acml 333 mg-200 unit -133 mg-5 mg tablet [...] Comment on above: Take 2 tablets by [facility] once daily for 7 days. prevagen (3 [...] One tablet by mouth daily ATORVASTATIN CALCIUM [id number] Baldev Freed MD Comment on above: Take [...] One tablet by mouth daily ESOMEPRAZOLE MAGNESIUM [id number] Yee Larry Start: 05-18-2011 take 1 tablet by lesly th once daily NEXIUM 40 MG CPDR One tablet by mouth daily ESOMEPRAZOLE MAGNESIUM 73647321568 Yee Larry hydroCHLOROthiazide 12.5 mg / losartan [...] One tablet by mouth daily VALSARTAN-HYDROCHL OROTHIAZIDE 04681933696 [facility] Start: 01-04-2011 take 1 tablet by [facility] once daily DIOVAN HCT 80-12.5 MG TABS One tablet by mouth daily VALSARTAN-HYDROCHLOROTHIAZIDE 90450344807 [facility] indomethacin 50 mg oral capsule (20 sources) [...] 1/2 tablet 2 X daily METOPROLOL TARTRATE 39414061503 Yee Larry Comment on above: Take by [...] One tablet by mouth daily NIACIN (ANTIHYPERLIPIDEMIC) 13120465772 Baldev Freed MD Start: 05-18-2011 End: 04-24-2012 take 1 tablet by mouth once daily NIASPAN 1000 MG CR-TABS One tablet by mouth daily NIACIN (ANTIHYPERLIPIDEMIC) 63803953733 Baldev Freed MD Start: 01-04-2011 End: 04-24-2012 SLO-NIACIN 500 MG CR-TABS 2 tablets at bedtime EMACIN 30333238160 Baldev Freed MD Start: 01-04-2011 End: 04-24-2012 SLO-NIACIN 500 MG CR-TABS 2 tablets at bedtime NIACIN 57877238191 Baldev Freed MD nitroglycerin 0.4 mg sublingual [...] 5 min up to 3 X NITROGLYCERIN [id number] Yee Larry Comment on above: Nitroglycerin Active [...] One tablet by mouth daily OMEPRAZOLE MAGNESIUM 91499148804 Yee Larry Start: 01-04-2011 End: 04-24-2012 take 1 tablet by mouth once daily PRILOSEC OTC 20 MG TBEC One tablet by mouth daily OMEPRAZOLE MAGNESIUM 61337144683 Yee Larry Comment on above: Take 40 mg by mouth once daily. Take 1 capsule by [facility] once daily. oxyCODONE hydrochloride 5 mg [...] One tablet by mouth daily ROSUVASTATIN CALCIUM 74545657962 Yee Larry secretin human, synthetic 0.016 mg [...] One tablet by mouth daily SILDENAFIL CITRATE 97301189738 Yee Larry sour coelho allergenic extract (18 [...] Onset: 09-09-2006 01-04-2011 Chronic Comment on above: KXY-IDP-Sqft LAD w/ 4.0 x 12 mm Liberte [...] aftercare (9 sources) Patient encounter status; Translations: [USP (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 of insulin] Onset: 04-19-2012 03-07-2022 [...] Auto (Unsp spec) [#/Vol] 1.47 10*3/uL 0.83-4.51 [facility] Absolute neutrophil countOrd ered By: Jayson Ellison on 05-19-2025 Neutrophils (Bld) [#/Vol] 5.1 10*3/uL 2.0-7.7 [facility] Anion gap in Serum or Plasma Ordered By: Jayson Ellison on 05-19-2025 Anion gap [Moles/Vol] 12 mmol/L 02-27 [facility] Automated lymphocyte count a s percentage of total leukocytesOrdered By: Jayson Ellison on 05-19-2025 Lymphocytes/100 WBC Auto (Unsp spec) 19.0 % [facility] BUN/creatinine ratioOrdered By: [facility] on 05-19-2025 Urea nitrogen/Creatinine [Mass ratio] 16.0 mg/mg 08-04 [facility] Basic Metabolic Profile (BMP )on 05-19-2025 BUN/CRE 16.0 RATIO Normal 08-04 [facility] Comment on above: Performed By: #### L 500.2500, L503.7505, L300.8000, L100.0100 #### [facility] [address] [place], [address] Calcium [Mass/Vol] 8.8 mg/dL Normal 7.6-11.0 [facility] Comment on above: Performed By: #### L 500.2500, L503.7505, L300.8000, L100.0100 #### [facility] [address] [place], [address] Chloride [Moles/Vol] 106 mmol/L Normal 98-108 [facility] Comment on above: Performed By: #### L 500.2500, L503.7505, L300.8000, L100.0100 #### [facility] [address] [place], [address] CO2 [Moles/Vol] 22.8 mmol/L Normal 21.0-32.0 [facility] Comment on above: Performed By: #### L 500.2500, L503.7505, L300.8000, L100.0100 #### [facility] [address] [place], [address] Creatinine [Mass/Vol] 1.21 mg/dL High 0.70-1.20 [facility] Comment on above: Performed By: #### L 500.2500, L503.7505, L300.8000, L100.0100 #### [facility] [address] [place], [address] ECRCL 108.84 ml/min Normal 50-250 [facility] Comment on above: Performed By: #### L 500.2500, L503.7505, L300.8000, L100.0100 #### [facility] [address] [place], [address] GAP 12 Normal 5-15 [facility] Comment on above: Performed By: #### L 500.2500, L503.7505, L300.8000, L100.0100 #### [facility] [address] [place], [address] GFR/1.73 sq M.predicted among non-blacks MDRD (S/P/Bld) [Vol rate/Area] 64 mL/min/{1.73_m2} Normal >60 [facility] Comment on above: Result Comment: mL/m in/1.73m2 CKD-EPI Creatinine Equation (2020) Performed By: #### L 500.2500, L503.7505, L300.8000, L100.0100 #### [facility] [address] [place], [address] Glucose [Mass/Vol] 125 mg/dL High 70-99 [facility] Comment on above: Performed By: #### L 500.2500, L503.7505, L300.8000, L100.0100 #### [facility] [address] [place], [address] Potassium [Moles/Vol] 4.1 mmol/L Normal 3.3-5.1 [facility] Comment on above: Performed By: #### L 500.2500, L503.7505, L300.8000, L100.0100 #### [facility] [address] [place], [address] Sodium [Moles/Vol] 140 mmol/L Normal 133-145 [facility] Comment on above: Performed By: #### L 500.2500, L503.7505, L300.8000, L100.0100 #### [facility] [address] [place], [address] Urea nitrogen [Mass/Vol] 19 mg/dL Normal 4-19 [facility] Comment on above: Performed By: #### L 500.2500, L503.7505, L300.8000, L100.0100 #### [facility] [address] [place], [address] Basophil percentageOrdered B y: Jayson Ellison on 05-19-2025 Basophils/100 WBC (Bld) 0.5 % 0-1 [facility] Bilirubin Test strip Ql (U)O rdered By: Jayson Ellison on 05-19-2025 Bilirubin Ql (U) Negative Negative [facility] CBC W/Diff, Automatedon 08-0 PLT EST ADEQUATE Normal ADEQ [facility] Comment on above: Performed By: #### L 500.2500, L503.7505, L300.8000, L100.0100 #### [facility] [address] [place], [address] Carbon dioxide, total [Moles /volume] in Central venous bloodOrdered By: Jayson Ellison on 05-19-2025 CO2 [Moles/Vol] 22.8 mmol/L 21.0-32.0 [facility] Chest PA and Lateralon 05-19 Chest PA and Lateral [facility] [address] [place] [address] Chest PA and Lateral MR#: [id number] Acct: [id number] Name: RUSLAN STEPHENS Rep #: [id number] : 1950 M 74 From: Tung jenkins MD PCP: Dr. Kem Davila MD Status: REG ER Study: Chest PA and Lateral Date of Exam: 05/19/25 Exam# [id number] Ordering Dr: Jayson Ellison DO PROCEDURE: CHEST [...] Lateral IMPRESSION: NO ACUTE FINDINGS. Reading Location: [id number] CC: Dr. Kem Davila MD; Dr. Jayson Ellison DO Ceramic Painter: Signed Normal [facility] Chloride assayOrdered By: Dylon Ellison on 05-19-2025 Chloride [Moles/Vol] 106 mmol/L 98-108 [facility] D-Dimer Quantitative (DVT/PE )on 05-19-2025 D-DIMER QUANT 0.68 FEU/ug/m Invalid Interpretation Code 0.27-0.49 [facility] Comment on above: Result Comment: D-Di allan ELEVATED (>0.49): Additional studies and clinical assessments are indicated to conclude diagnosis of: Deep Vein Thrombosis (DVT) or Pulmonary Embolism (PE) CRITICAL VALUE CALLED TO FLORI DRAKE (ER) 05/19/25 0919 Zane Davis. RESULTS READ BACK BY SAME. Performed By: #### L 500.2500, L503.7505, L300.8000, L100.0100 #### [facility] [address] [place], [place], [id number] Emergency Department Summary on 05-19-2025 Emergency Department Summary [facility] Medical Records Department [address] [place] [address] Emergency Department Summary 05/19/25 MR#: [id number] Acct: [id number] Name: RUSLAN STEPHENS Rep #: [id number] : 1950 74 From: Jayson Ellison DO PCP: Dr. Kem Davila MD [...] with walking up inclines. He saw his chain hooker in April but did not inform him [...] intact Psych: Cooperative, appropriate mood and affect [facility] Medical History (Reviewed 05/12/25 @ 15:33 by Joseph Link BILLIARD TABLE MECHANIC, BILLIARD TABLE MECHANIC-C) Gout Near syncope Urinary tract infection Obesity History of non-ST elevation myocardial infarction (NSTEMI) (09/09/06) Essential (primary) hypertension Hernia Hyperlipidemia Atherosclerotic heart disease of [place] coronary artery without angina pectoris Home Medications [...] (Reviewed 05/12/25 @ 15:33 by Joseph Link BILLIARD TABLE MECHANIC, BILLIARD TABLE MECHANIC-C) Father Myocardial infarction CAD (coronary artery disease) Mother Hx of CABG CAD (coronary artery disease) Brother Hypertension Brother Hypertension Surgical History (Reviewed 05/12/25 @ 15:33 by Joseph Link BILLIARD TABLE MECHANIC, BILLIARD TABLE MECHANIC-C) Cataract extraction status H/O wrist surgery History of back surgery History of herniorrhaphy History of knee replacement (2017) History of left heart catheterization (11/27/17) H/O knee surgery History of coronary artery stent placement (09/09/06) Social History (Reviewed 05/12/25 @ 15:33 by Joseph Link BILLIARD TABLE MECHANIC, BILLIARD TABLE MECHANIC-C) household members: spouse current occupational status: employed c (more content not included)... Normal [facility] Eosinophil percentageOrdered By: Jayson Ellison on 05-19-2025 Eosinophils/100 WBC (Bld) 2.5 % 0-5 [facility] Erythrocyte distribution wid th ratioOrdered By: Jayson Scot on 05-19-2025 Erythrocyte distribution width (RBC) [Ratio] 13.4 % 11.6-14.6 [facility] Erythrocyte distribution wid th standard deviationOrdered By: Jayson Loving on 05-19-2025 Erythrocyte distribution width (RBC) [Ratio] 45.6 fl High 35.1-43.9 [facility] Glomerular filtration rate ( GFR) estimation/1.73 sq m using serum, plasma, or whole bOrdered By: Jayson Ellison on 05-19-2025 GFR/1.73 sq M.predicted among non-blacks MDRD (S/P/Bld) [Vol rate/Area] 64 mL/min/{1.73_m2} >60 [facility] Comment on above: mL/min/1.73m2 CKD-EP I Creatinine Equation (2020) Hematocrit Auto (Bld) [Volum e fraction]Ordered By: Jayson Ellison on 05-19-2025 Hematocrit (Bld) [Volume fraction] 39.8 % Low 40-54 [facility] Hemoglobin measurementOrdere d By: Jayson Ellison on 05-19-2025 Hemoglobin (Bld) [Mass/Vol] 13.0 g/dL 13.0-16.5 [facility] Immature granulocytes/100 WB C Auto (Bld)Ordered By: Jayson Ellison on 05-19-2025 Immature granulocytes/100 WBC (Bld) 0.100 % 0.0-0.9 [facility] Comment on above: IG% - Immature Granu locytes (promyelocytes, myelocytes and metamyelocytes) > 1% indicates that a LEFT SHIFT is Present. Ketones Test strip Ql (U)Ord ered By: Jayson Ellison on 05-19-2025 Ketones Ql (U) Negative Negative [facility] L501.4021on 05-19-2025 Trop T High Sen 20 ng/L Normal <=22 [facility] Comment on above: Performed By: #### L 501.4021 #### [facility] [address] [place] [address], [address] MCV (mean corpuscular volume ) determinationOrdered By: Jayson Ellison on 05-19-2025 MCV (RBC) [Entitic vol] 93.2 fL 80-94 [facility] Mean corpuscular hemoglobin (MCH) determinationOrdered By: Jayson Ellison on 05-19-2025 MCH (RBC) [Entitic mass] 30.4 pg 27.0-32.0 [facility] Mean corpuscular hemoglobin concentration (MCHC) determinationOrdered By: Jayson Ellison on 05-19-2025 MCHC (RBC) [Mass/Vol] 32.7 g/dL 32-36 [facility] Mean platelet volume determi nationOrdered By: Jayson Ellison on 05-19-2025 Platelet mean volume (Bld) [Entitic vol] 10.7 fL 6.2-12.0 [facility] Microscopic analysis of urin e for red blood cells (RBC)Ordered By: Jayson Ellison on 05-19-2025 Microscopic analysis of urine for red blood cells (RBC) 0 SEEN /hpf 0-5 [facility] Monocyte percentageOrdered B y: Jayson Ellison on 05-19-2025 Monocytes/100 WBC (Bld) 11.5 % High 0-10 [facility] Mucus LM Ql (Urine sed)Order ed By: Jayson Ellison on 05-19-2025 Mucus Ql (Urine sed) 0 SEEN /hpf [facility] Natriuretic peptide.B prohor ora N-Terminal [Mass/volume] in Serum or PlasmaOrdered By: Jayson Ellison on 05-19-2025 Natriuretic peptide.B prohormone N-Terminal [Mass/Vol] 226 pg/mL <900 [facility] Comment on above: Heart Failure Unlike ly: < 300 pg/mLHeart Failure Likely< 50 Years: > 450 pg/mL50-75 Years: > 900 pg/mL>75 Years: > 1800 pg/mL Neutrophil percentageOrdered By: Jayson Ellison on 05-19-2025 Neutrophils/100 WBC (Bld) 66.4 % 47-70 [facility] Nitrite Test strip Ql (U)Ord ered By: Jayson Elliosn on 05-19-2025 Nitrite Ql (U) Negative Negative [facility] Nucleated red blood cell per centageOrdered By: Jayson Ellison on 05-19-2025 Nucleated RBC/100 WBC (Bld) [Ratio] 0 % 0-5 [facility] Platelet countOrdered By: Dylon iel Scot on 05-19-2025 Platelets (Bld) [#/Vol] 220 10*3/uL 150-450 [facility] Platelet estimateOrdered By: Jayson Ellison on 05-19-2025 Platelets LM Ql (Bld) ADEQUATE ADEQ [facility] Potassium measurement (mass/ volume)Ordered By: Jayson Ellison on 05-19-2025 Potassium (Unsp spec) [Mass/Vol] 4.1 mmol/L 3.3-5.1 [facility] Pro- Brain NATRIURETIC PEPTI Jovani 05-19-2025 Natriuretic peptide B (Bld) [Mass/Vol] 226 pg/mL Normal <=900 [facility] Comment on above: Result Comment: Hear t Failure Unlikely: < 300 pg/mL Heart Failure Likely < 50 Years: > 450 pg/mL 50-75 Years: > 900 pg/mL >75 Years: > 1800 pg/mL Performed By: #### L 500.2500, L503.7505, L300.8000, L100.0100 ####[facility] [id number] [place], [address] Protein Test strip Ql (U)Ord ered By: Jayson Ellison on 05-19-2025 Protein Ql (U) 30 mg/dl High Negative [facility] RBC Auto (Bld) [#/Vol]Ordere d By: Jayson Ellison on 05-19-2025 RBC (Bld) [#/Vol] 4.27 10*6/uL Low 4.6-6.2 [facility] Serum creatinine measurement (mass/volume)Ordered By: Jayson Ellison on 05-19-2025 Creatinine [Mass/Vol] 1.21 mg/dL High 0.70-1.20 [facility] Serum glucose measurement (m ass/volume)Ordered By: Jayson Ellison on 05-19-2025 Glucose [Mass/Vol] 125 mg/dL High 70-99 [facility] Serum or plasma calcium caitlin urement (mass/volume)Ordered By: Jayson Loving on 05-19-2025 Calcium [Mass/Vol] 8.8 mg/dL 7.6-11.0 [facility] Serum or plasma urea nitroge n measurement (mass/volume)Ordered By: Jayson Ellison on 05-19-2025 Urea nitrogen [Mass/Vol] 19 mg/dL 4-19 [facility] Sodium levelOrdered By: Woody Ellison on 05-19-2025 Sodium [Moles/Vol] 140 mmol/L 133-145 [facility] Squamous epithelial cells de tection in urine sediment by light microscopyOrdered By: Jayson Ellison on 05-19-2025 Epithelial cells.squamous LM Ql (Urine sed) 0-5 SEEN /hpf 0-5 [facility] Troponin T HS 2 HRon 025 Trop T High Sen Normal <=22 [facility] Comment on above: Performed By: #### L 499.0042 #### [facility] [address] [place], [address] Troponin T.cardiac [Mass/vol ume] in Serum or Plasma by High sensitivity methodOrdered By: Jayson Ellison on 05-19-2025 Troponin T.cardiac High sensitivity method [Mass/Vol] 20 ng/L <22 [facility] Urinalysis, Completeon 05-19 EPI,SQUAMOUS 0-5 SEEN Normal 0-5 [facility] Comment on above: Order Comment: PALMA CTOR TO SPECIFY Performed By: #### L 400.0001 #### [facility] [address] [place], [address] WBC 0-5 SEEN Normal 0-5 [facility] Comment on above: Order Comment: PALMA CTOR TO SPECIFY Performed By: #### L 400.0001 #### [facility] [address] [place], [address] BACTERIA 0 SEEN Normal None Seen [facility] Comment on above: Order Comment: PALMA CTOR TO SPECIFY Performed By: #### L 400.0001 #### [facility] [address] [place], [address] Mucus Ql (Urine sed) 0 SEEN Normal [facility] Comment on above: Order Comment: PALMA CTOR TO SPECIFY Performed By: #### L 400.0001 #### [facility] [address] [place], [address] RBC 0 SEEN Normal 0-5 [facility] Comment on above: Order Comment: PALMA CTOR TO SPECIFY Performed By: #### L 400.0001 #### [facility] [address] [place], [address] Urine clarityOrdered By: Alvin Ellison on 05-19-2025 Clarity (U) Clear Clear [facility] Urine color determinationOrd ered By: Jayson Ellison on 05-19-2025 Color (U) Yellow Yellow [facility] Urine glucose detectionOrder ed By: Jayson Ellison on 05-19-2025 Glucose Ql (U) Normal mg/dl Normal [facility] Urine leukocyte esterase det ection by dipstickOrdered By: Jayson Ellison on 05-19-2025 Leukocyte esterase Test strip Ql (U) 25 /ul High Negative [facility] Urine pHOrdered By: Jayson Stanley on 05-19-2025 pH (U) 6.0 [pH] 5.0 - 8.0 [facility] Urine sediment bacteria coun t by microscopy (number/high power field)Ordered By: Jayson Ellison on 05-19-2025 Bacteria LM.HPF (Urine sed) [#/Area] 0 /[HPF] None Seen [facility] Urine specific gravity measu rementOrdered By: Jayson Ellison on 05-19-2025 Specific gravity (U) [Rel density] 1.020 1.002-1.030 [facility] Urine urobilinogen measureme ntOrdered By: Jayson Ellison on 05-19-2025 Urobilinogen Ql (U) Normal mg/dl Normal [facility] White blood cell (WBC) count Ordered By: Jayson Ellison on 05-19-2025 WBC (Bld) [#/Vol] 7.7 10*3/uL 4.4-11.0 [facility] White blood cell countOrdere d By: Jayson Ellison on 05-19-2025 White blood cell count 0-5 SEEN /hpf 0-5 [facility] Cardiology Visit Reporton Cardiology Visit Report [facility] [address] [place] [address] OFFICE VISIT Date of Service: 05/12/25 MR#: [id number] Acct: [id number] Name: RUSLAN STEPHENS Rep #: [id number] : 1950 Provider: LAMAR melo Age/Sex: 74/M Location: [facility] Status: Signed HPI HPI History of Present Illness Details: RUSLAN STEPHENS, is a 74 M who presents to the office today for a follow-up visit.??? He is a gentleman with a history of coronary artery disease status post bare-metal stenting to the proximal left anterior descending artery in 2005 at [facility].??? 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 Accompanied by: Is patient [...] (Reviewed 05/12/25 @ 15:33 by Joseph Link BILLIARD TABLE MECHANIC, BILLIARD TABLE MECHANIC-C) Gout Near syncope Urinary tract infection Obesity History of non-ST elevation myocardial infarction (NSTEMI) (09/09/06) Essential (primary) hypertension Hernia Hyperlipidemia Atherosclerotic heart disease of [place] coronary artery without angina pectoris Surgical History (Reviewed 05/12/25 @ 15:33 by Joseph Link BILLIARD TABLE MECHANIC, BILLIARD TABLE MECHANIC-C) Cataract extraction status H/O wrist surgery History of back surgery History of herniorrhaphy History of knee replacement (2018) History of left heart catheterization (11/27/17) H/O knee surgery History of coronary artery stent placement (09/09/06) Family History (Reviewed 05/12/25 @ 15:33 by Joseph Link BILLIARD TABLE MECHANIC, BILLIARD TABLE MECHANIC-C) Father Myocardial infarction CAD (coronary artery disease) Mother Hx of CABG CAD (coronary artery disease) Brother Hypertension Brother Hypertension Social History (Reviewed 05/12/25 @ 15:33 by Joseph Link BILLIARD TABLE MECHANIC, BILLIARD TABLE MECHANIC-C) household members: spouse current occupational status: employed current occupation: [employer] Smoking Status: Never smoker Electronic Cigarette Use: not used a (more content not included)... Normal [facility] Internal Medicine Office Vis juve 11-21-2024 Internal Medicine Office Visit [facility] [address] [place] [address] OFFICE VISIT Date of Service: 11/25/24 MR#: [id number] Acct: [id number] Name: RUSLAN STEPHENS Rep #: [id number] : 1950 Provider: Dr. 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 Normal [facility] Internal Medicine Office Vis juve 06-03-2024 Internal Medicine Office Visit [facility] [address] [place] [address] [place] [address] OFFICE VISIT Date of Service: 06/03/24 MR#: [id number] Acct: [id number] Name: RUSLAN STEPHENS Rep #: [id number] : 1950 Provider: LAMAR mattson Age/Sex: 73/M Location: [facility] [facility] Status: Signed Intake Vital [...] PFSH Medical History Atherosclerotic heart disease [place] coronary artery without angina pectoris Essential (primary) [...] take them (more content not included)... [facility] [facility] Office Visit (IMGCMN ) RUSLAN STEPHENS ([id number]) 1950 M [facility] Date Time Provider Department 05/13/24 12:00 PM EMELI HOLLINS [facility] During your visit today, we recorded [...] No rest (more content not included)... Normal [facility] CBC + DIFFon 11-16-2023 Baso # 0.00 x10EE3/UL Normal 0.00 - 0.10 [facility] Comment on above: Performed By: #### 2 77946 #### [facility],[address] [place] [address] 30752 Basophils/100 WBC (Bld) 0.7 % Normal 0.0 - 2.0 [facility] Comment on above: Performed By: #### 2 66838 #### [facility],[address] [place] [address] 53338 CBC + DIFF Normal [facility] Comment on above: Result Comment: CBC- COMPLETE BLOOD COUNT Performed By: #### 2 90495 #### [facility],[address] [place] [address] 32050 EO # 0.10 x10EE3/UL Normal 0.00 - 0.50 [facility] Comment on above: Performed By: #### 2 36430 #### [facility],[address] [place] [address] 03714 Eosinophils/100 WBC (Bld) 2.3 % Normal 0.0 - 7.0 [facility] Comment on above: Performed By: #### 2 82853 #### [facility],[address] [place] [address] 15387 Erythrocyte distribution width (RBC) [Ratio] 14.0 % Normal 12.0 - 15.6 [facility] Comment on above: Performed By: #### 2 44086 #### [facility],[address] [place] [address] 54695 Hematocrit (Bld) [Volume fraction] 42.2 % Normal 40.0 - 52.0 [facility] Comment on above: Performed By: #### 2 93111 #### [facility],[address] [place] [address] Hemoglobin (Bld) [Mass/Vol] 14.1 g/dL Normal 13.0 - 17.5 [facility] Comment on above: Performed By: #### 2 09578 #### [facility],[address] [place] [address] Lymph # 0.90 x10EE3/UL Normal 0.80 - 2.80 [facility] Comment on above: Performed By: #### 2 09497 #### [facility],[address] [place], [place] [address] Lymphocytes/100 WBC (Bld) 15.9 % Low 20.0 - 45.0 [facility] Comment on above: Performed By: #### 2 22235 #### [facility],[address] [place] [address] 54317 MANUAL DIFF N/A Normal [facility] Comment on above: Performed By: #### 2 31636 #### [facility],[address] [place], [place] [address] MCH (RBC) [Entitic mass] 30 pg Normal 27 - 33 [facility] Comment on above: Performed By: #### 2 38901 #### [facility],[address] [place] [address] 64714 MCHC 34 X10 3 Normal 32 - 36 [facility] Comment on above: Performed By: #### 2 19276 #### [facility],[address] [place] [address] 34079 MCV (RBC) [Entitic vol] 91 fL Normal 81 - 98 [facility] Comment on above: Performed By: #### 2 77064 #### [facility],[address] [place] [address] 99244 Kaufman # 0.60 x10EE3/UL Normal 0.20 - 1.00 [facility] Comment on above: Performed By: #### 2 45029 #### [facility],[address] [place] [address] 32877 MONOS % 10.4 % High 0.0 - 10.0 [facility] Comment on above: Performed By: #### 2 33724 #### [facility],[address] [place] [address] 47638 Morphology Daniel (Bld) [Interp] N/A Normal [facility] Comment on above: Result Comment: {CD] Performed By: #### 2 13753 #### [address] [address] Neut # 4.00 x10EE3/UL Normal 1.50 - 7.10 [facility] Comment on above: Performed By: #### 2 80122 #### [facility],[address] [place] [address] 56944 Neutrophils/100 WBC (Bld) 70.7 % Normal 46.0 - 76.0 [facility] Comment on above: Performed By: #### 2 76550 #### [facility],[address] [place] [address] 18347 PLATELET 260 x10EE3/UL Normal 150 - 450 [facility] Comment on above: Performed By: #### 2 07509 #### [facility],[address] [place] [address] 52974 Platelet mean volume (Bld) [Entitic vol] 9.0 fL Normal 6.4 - 10.5 [facility] Comment on above: Result Comment: AUTO MATED DIFFERENTIAL Performed By: #### 2 32917 #### [facility],[address] [place] [address] 58761 RBC 4.66 x 10EE6/UL Normal 4.50 - 6.00 [facility] Comment on above: Performed By: #### 2 95352 #### [facility],[address] [place] [address] 08396 WBC 5.7 x 10EE3/UL Normal 4.5 - 10.8 [facility] Comment on above: Performed By: #### 2 12224 #### [facility],[address] [place], [place] [phone] CMP with eGFRon 11-16-2023 AGE 73 years Normal [facility] Comment on above: Performed By: #### 2 64408 #### [facility],[address] [place] [address] 29633 Albumin [Mass/Vol] 3.7 g/dL Normal 3.4 - 5.0 [facility] Comment on above: Performed By: #### 2 54052 #### [facility],[address] [place] [address] Albumin/Globulin [Mass ratio] 1.0 {ratio} Normal 0.9 - 1.6 [facility] Comment on above: Performed By: #### 2 06799 #### [facility],[address] [place] [address] 29454 ALK PHOS 93 U/L Normal 46 - 116 [facility] Comment on above: Performed By: #### 2 73581 #### [facility],[address] [place] [address] 52227 ALT [Catalytic activity/Vol] 40 U/L Normal 16 - 63 [facility] Comment on above: Performed By: #### 2 09556 #### [address] [address] Anion gap [Moles/Vol] 15 mmol/L Normal 10 - 20 [facility] Comment on above: Performed By: #### 2 40293 #### [address] [address] AST [Catalytic activity/Vol] 32 U/L Normal 15 - 37 [facility] Comment on above: Performed By: #### 2 63281 #### [address] [address] B/C RATIO 23 ratio Normal 0 - 30 [facility] Comment on above: Performed By: #### 2 52193 #### [facility],[address] [place] [address] 31225 Bilirubin [Mass/Vol] 0.6 mg/dL Normal 0.2 - 1.0 [facility] Comment on above: Performed By: #### 2 25610 #### [facility],[address] [place] [address] 73295 Calcium [Mass/Vol] 9.1 mg/dL Normal 8.5 - 10.1 [facility] Comment on above: Performed By: #### 2 53143 #### [facility],[address] [place], [place] [address] Chloride [Moles/Vol] 107 mmol/L Normal 98 - 107 [facility] Comment on above: Performed By: #### 2 34164 #### [facility],[address] [place] [address] CMP with eGFR Normal [facility] Comment on above: Result Comment: COMP REHENSIVE METABOLIC PANEL Performed By: #### 2 45940 #### [facility],[address] [place] [address] 52403 CO2 [Moles/Vol] 26.2 mmol/L Normal 21.0 - 32.0 [facility] Comment on above: Performed By: #### 2 75358 #### [facility],[address] [place] [address] 23804 Creatinine [Mass/Vol] 1.00 mg/dL Normal 0.70 - 1.30 [facility] Comment on above: Performed By: #### 2 01538 #### [facility],[address] [place], [place] [address] GFR/1.73 sq M.predicted among non-blacks MDRD (S/P/Bld) [Vol rate/Area] mL/min/{1.73_m2} Normal 60 - 999 [facility] Comment on above: Performed By: #### 2 44914 #### [facility],[address] [place] [address] 29823 Result Comment: ACCO RDING TO THE NATIONAL KIDNEY DISEASE EDUCATION PROGRAM(NKDE), A NORMAL eGFR IS A VALUE GREATER THAN OR EQUAL TO 60 ML/MIN/1.73 SQ METERS. CHRONIC KIDNEY DISEASE: <60mL/MIN/1.73 SQ METERS KIDNEY FAILURE: <15mL/MIN/1.73 SQ METERS THIS TEST SHOULD ONLY BE USED FOR PATIENTS 18 YEARS OF AGE AND OLDER. Globulin (S) [Mass/Vol] 3.7 g/dL Normal 1.5 - 3.8 [facility] Comment on above: Performed By: #### 2 93586 #### [facility],[address] [place] [address] 48966 Glucose [Mass/Vol] 137 mg/dL High 74 - 106 [facility] Comment on above: Performed By: #### 2 97724 #### [facility],[address] [place] [address] 13077 Potassium [Moles/Vol] 4.6 mmol/L Normal 3.5 - 5.1 [facility] Comment on above: Performed By: #### 2 94837 #### [facility],[address] [place] [address] 62674 Protein [Mass/Vol] 7.4 g/dL Normal 6.4 - 8.2 [facility] Comment on above: Performed By: #### 2 33631 #### [facility],[address] [place] [address] 31663 Sodium [Moles/Vol] 144 mmol/L Normal 136 - 145 [facility] Comment on above: Performed By: #### 2 15328 #### [facility],[address] [place] [address] 32427 Urea nitrogen [Mass/Vol] 23 mg/dL High 7 - 18 [facility] Comment on above: Performed By: #### 2 47548 #### [facility],[address] [place] [address] 14637 HEMOGLOBIN A1C (POM)on 11-16 Glucose [Mass/Vol] 142.7 mg/dL High 0.0 - 0.0 [facility] Comment on above: Result Comment: BLDo HEMOGLOBIN A1C REFERENCE RANGESBLDo Suggested Diagnosis HbA1c(%) HbA1C (mmol/mol Diabetic >/=6.5 >/=48 Prediabetes 5.7 - 6.4 39 - 47 Normal <5.7 <39 Performed By: #### 2 46447 #### [facility],[address] [place] [address] 38004 HbA1c (Bld) [Mass fraction] 6.6 % High 0.0 - 6.5 [facility] Comment on above: Performed By: #### 2 18398 #### [facility],[address] [place] [address] 67714 LIPID PROFILEon 11-16-2023 Cholesterol [Mass/Vol] 122 mg/dL Normal 0 - 240 [facility] Comment on above: Performed By: #### 2 03215 #### [facility],[address] [place] [address] 28102 Cholesterol in HDL [Mass/Vol] 43 mg/dL Normal 40 - 60 [facility] Comment on above: Performed By: #### 2 21907 #### [facility],[address] [place] [address] 57034 Cholesterol in LDL [Mass/Vol] 68 mg/dL Normal 0 - 129 [facility] Comment on above: Performed By: #### 2 65225 #### [facility],[address] [place] [address] 33648 Cholesterol.total/Choles terol in HDL [Mass ratio] 2.8 {ratio} Normal 0.0 - 5.0 [facility] Comment on above: Performed By: #### 2 57828 #### [facility],[address] [place] [address] 16104 Lipid 1996 panel Normal [facility] Comment on above: Result Comment: LIPI D PROFILE Performed By: #### 2 62117 #### [facility],[address] [place] [address] 68997 Triglyceride [Mass/Vol] 57 mg/dL Normal 0 - 150 [facility] Comment on above: Performed By: #### 2 23965 #### [facility],[address] [place] [address] 42693 CNOVon 11-13-2023 CNOV Office Visit ([facility] ) RUSLAN STEPHENS ([id number]) 1950 M [facility] Date Time Provider Department 11/13/23 11:30 AM EMELI HOLLINS [facility] During your visit today, we recorded [...] BMI 3 (more content not included)... Normal [facility] Absolute lymphocyte countOrd ered By: Jeaneth Guillaume on 10-20-2023 Lymphocytes Auto (Unsp spec) [#/Vol] 1.16 10*3/uL 0.83-4.51 [facility] Basophil percentageOrdered B y: Jeaneth Guillaume on 10-20-2023 Basophils/100 WBC (Bld) 0.6 % 0-1 [facility] Chloride [Moles/Vol] 108 mmol/L 98-107 [facility] Eosinophils/100 WBC (Bld) 1.5 % 0-5 [facility] Glucose [Mass/Vol] 164 mg/dL 74-106 [facility] Comment on above: Fasting Glucose resu lt greater than or equal to 126 mg/dL suggests DIABETES MELLITUS per A.D.A. criteria. Neutrophils (Bld) [#/Vol] 6.1 10*3/uL 2.0-7.7 [facility] Neutrophils/100 WBC (Bld) 74.4 % 47-70 [facility] Potassium [Moles/Vol] 4.0 mmol/L 3.5-5.1 [facility] Sodium [Moles/Vol] 139 mmol/L 136-145 [facility] WBC (Bld) [#/Vol] 8.3 10*3/uL 4.4-11.0 [facility] Blood erythrocytes count (nu mber/volume)Ordered By: Jeaneth Guillaume on 10-20-2023 RBC (Bld) [#/Vol] 4.64 10*6/uL 4.6-6.2 [facility] Blood hemoglobin measurement (mass/volume)Ordered By: Jeaneth Guillaume on 10-20-2023 Hemoglobin (Bld) [Mass/Vol] 13.7 g/dL 13.0-16.5 [facility] Blood lymphocytes/100 leukoc ytesOrdered By: Jeaneth Guillaume on 10-20-2023 Lymphocytes/100 WBC (Bld) 14.0 % 19-41 [facility] Blood monocytes/100 leukocyt esOrdered By: Jeaneth Guillaume on 10-20-2023 Monocytes/100 WBC (Bld) 9.3 % 0-10 [facility] Blood platelet mean volumeOr dered By: Jeaneth Guillaume on 10-20-2023 Platelet mean volume (Bld) [Entitic vol] 10.0 fL 6.2-12.0 [facility] Determination of erythrocyte mean corpuscular volume (MCV)Ordered By: Jeaneth Guillaume on 10-20-2023 MCV (RBC) [Entitic vol] 90.9 fL 80-94 [facility] Hematocrit Auto (Bld) [Volum e fraction]Ordered By: Jeaneth Guillaume on 10-20-2023 Hematocrit (Bld) [Volume fraction] 42.2 % 40-54 [facility] Laboratory - Chemistry and C hemistry - challengeOrdered By: Jeaneth Guillaume on 10-20-2023 CO2 [Moles/Vol] 25.0 mmol/L 21.0-32.0 [facility] Urea nitrogen/Creatinine [Mass ratio] 13.4 mg/mg 10-20 [facility] Laboratory - Hematology and Cell countsOrdered By: Jeaneth Guillaume on 10-20-2023 Erythrocyte distribution width (RBC) [Entitic vol] 42.6 fL 35.1-43.9 [facility] Erythrocyte distribution width (RBC) [Ratio] 13.0 % 11.6-14.6 [facility] Immature granulocytes/100 WBC (Bld) 0.200 % 0.0-0.9 [facility] Comment on above: IG% - Immature Granu locytes (promyelocytes, myelocytes and metamyelocytes) > 1% indicates that a LEFT SHIFT is Present. MCH (RBC) [Entitic mass] 29.5 pg 27.0-32.0 [facility] Nucleated RBC/100 WBC (Bld) [Ratio] 0 % 0-5 [facility] Laboratory - Microbiology an d Antimicrobial susceptibilityOrdered By: Jeaneth Guillaume on 10-20-2023 SARS-CoV-2 (COVID-19) RNA ARACELI+probe Ql (Unsp spec) [facility] MCHC Auto (RBC) [Mass/Vol]Or dered By: Jeaneth Guillaume on 10-20-2023 MCHC (RBC) [Mass/Vol] 32.5 g/dL 32-36 [facility] No Panel InformationOrdered By: Jeaneth Guillaume on 10-20-2023 Estimated Creatinine Clearance Calc 61.52 ml/min [facility] Estimated GFR (MDRD) Amer 78 mL/min >60 [facility] Comment on above: GFR Calc Estimated GFR (MDRD) Non-Af Amer 64 mL/min >60 [facility] Comment on above: Non- GFR Calc Platelets bldOrdered By: Farida Guillaume on 10-20-2023 Platelets (Bld) [#/Vol] 272 10*3/uL 150-450 [facility] Serum or plasma calcium caitlin urement (mass/volume)Ordered By: Jeaneth Guillaume on 10-20-2023 Calcium [Mass/Vol] 9.0 mg/dL 8.5-10.1 [facility] Serum or plasma creatinine m easurement (mass/volume)Ordered By: Jeaneth Guillaume on 10-20-2023 Creatinine [Mass/Vol] 1.19 mg/dL 0.70-1.30 [facility] Comment on above: The validity of the calculated GFR & GFRAA in patients over 70 years has not been determined. Clinical correlation is essential. Serum or plasma urea nitroge n measurement (mass/volume)Ordered By: Jeaneth Guillaume on 10-20-2023 Urea nitrogen [Mass/Vol] 16 mg/dL 7-18 [facility] Thin prep Papanicolaou smear with manual screeningOrdered By: Jeaneth Guillaume on 10-20-2023 Thin prep Papanicolaou smear with manual screening 6 5-15 [facility] No Panel Informationon 11-08 [facility] CNOVon 06-06-2022 CNOV Office Visit (FAMMAS ) RUSLAN STEPHENS ([id number]) 1950 [facility] Date Time Provider Department 06/06/22 10:00 [...] 40 mg capsule (more content not included)... [facility] Office Visit (FAMMAS ) RUSLAN STEPHENS ([id number]) 1950 M [facility] Date Time Provider Department 05/09/22 11:10 AM ULICES TAVERAS During your visit today, we recorded the following information about you: Temperature Pulse Respiration Blood pressure 98 degrees 64/minute 18/minute 134/74 Weight Height 105.5 kg 1.765 m Ulices Taveras MD 05/09/2022 1:59 PM Signed This note was created using [employer]. Subjective Ruslan Stephens is a 71 year [...] 16 mcg solr (more content not included)... [facility] Cheikh 04-28-2022 [facility] Telephone (OLESYA) RUSLAN STEPHENS ([id number]) 1950 M [facility] Date Time Provider Department 04/28/22 ULICES TAVERAS [...] [facility] (CH[facility]IC [facility]) [6019302] Order #: [id number]: [id number] Prescriptions as of 04/28/2022 - cyclobenzaprine [...] Encounter Status:Closed by ULICES TAVERAS on 04/28/22 [facility] Anabela 04-25-2022 [facility] Office Visit (LIZETTES ) RUSLAN STEPHENS ([id number]) 1950 M [facility] Date Time Provider Department 04/25/22 4:40 PM ULICES TAVERAS During your visit today, we recorded the following information about you: Temperature Pulse Respiration Blood pressure 97.7 degrees 77/minute 14/minute 138/82 Weight Height 103.5 kg 1.791 m Kaila Gary LPN 04/25/2022 5:00 PM Signed Pt had went to [facility] and had an xray that didn't show anything. Pt was prescriped medrol pk onTday prescribed flexaril 5 mg tab Pt still has complaints of 5/10 pain Ulices Taveras MD 04/25/2022 6:00 PM Signed This note was created using [employer]. Subjective Ruslan Stephens is a 71 year [...] 14 tabletRfl: 0 CONSULT TO PHYSICAL THERAPY [5017] Order #: [id number]: 1 FUTURE Prescriptions as of 04/25/2022 - [...] Hypertension [I10] 09/26/20 (more content not included)... [facility] CR Hip w/ Pelvis 2 or 3 View s Righton 04-23-2022 CR Hip w/ Pelvis 2 or 3 Views Right Patient Name: RUSLAN STEPHENS Diagnostic Radiology ACCESSION EXAM DATE/TIME PROCEDURE ORDERING PROVIDER [id number] 04/23/2022 13:11 EDT CR Hip w/ Pelvis 2 or 3 [id number] -PEDRO LUIS DIGGS Views Right n CPT code 49327 Reason For Exam (CR Hip w/ Pelvis [...] and Time: 04/23/2022 1:25 Normal [facility] ED Provider Noteon 07-09-202 2 ED Provider Note Emergency Department Encounter [facility] EMERGENCY DEPT Patient: Rusaln Stephens : 1950 Date of Evaluation: 04/23/2022 [...] history of arthritis in that hip per [facility] plan to discharge with anti-inflammatories and close [...] are mis-transcribed.) Alek Negron MD Acute Care [facility] Alek Negron MD 04/23/22 1310 [facility] ED Provider Note [facility] EMERGENCY DEPT EMERGENCY DEPARTMENT ENCOUNTER Pt Name: Ruslan Stephens Birthdate 1950 Date of evaluation: 04/23/2022 Provider: Pedro Luis Diggs MD CHIEF COMPLAINT Chief Complaint Patient presents with ? Hip Pain Right hip pain, reports he was at [facility] and had an xray a few days [...] pain. Patient reports that he follows with [facility] has been diagnosed with osteoarthritis after receiving a hip x-ray at that facility. He was given prednisone and was scheduled for follow-up appointment. Patient reports that the hip pain has been persistent, contacted [facility] back and recommended coming to the emergency [...] and Family: Not on file ? Attends [employer]: Not on file ? Active Member [...] regular rhyth (more content not included)... Normal [facility] [employer] [facility] XR HIP RIGHT (2-3 VIEWS)on 0 04-23-2022 Patient Name: RUSLAN WOODS Diagnostic Radiology ACCESSION EXAM DATE/TIME PROCEDURE ORDERING PROVIDER [id number] 04/23/2022 13:11 EDT CR Hip w/ Pelvis 2 or 3 [id number] -PEDRO LUIS DIGGS Views Right n CPT code 15954 Reason For Exam (CR Hip w/ Pelvis [...] R Transcribed Date and Time: 04/23/2022 1:25 [facility] Radha Meza MD - 04/23/2022 [id number] Radiology ACCESSION EXAM DATE/TIME PROCEDURE ORDERING PROVIDER [id number] 04/23/2022 13:11 EDT CR Hip w/ Pelvis 2 or 3 [id number] -PEDRO LUIS DIGGS Views Right n CPT code 87008 Reason For Exam (CR Hip w/ Pelvis [...] R Transcribed Date and Time: 04/23/2022 1:25 [facility] Work Phone: Radiology Study observation (narrative) [facility] Work Phone: XR HIP RIGHT (2-3 VIEWS)Orde red By: Radha Jaffe on 04-23-2022 [facility] Work Phone: No Panel Informationon 04-04 Endomysial IgA Antibody Negative Negative [facility] Work Phone: Serum IgA measurement (units /volume)on 04-04-2022 IgA Qn (S) 182 mg/dL 61-437 [facility] Work Phone: Comment on above: Performed at: [place] [id number] Director: Tian Goodson PhD, Phone: [phone] Serum or plasma C reactive p rotein measurement (mass/volume)on 04-04-2022 CRP [Mass/Vol] mg/L 0.0-3.0 [facility] Work Phone: Comment on above: C-Reactive Protein ( CRP) provides useful information for thediagnosis, therapy and monitoring of inflammatory processesand associated diseases. For the evaluation of Relative Riskfor Cardiovascular Disease, a High Sensitivity CRP (HSCRP)should be ordered. Serum tissue transglutaminas e IgA antibody assay (units/volume)on 04-04-2022 tTG IgA Qn (S) <2 U/mL 0-3 [facility] Work Phone: Comment on above: Negative 0 - 3 Weak Positive 4 - 10 Positive >10 Tissue Transglutaminase (tTG) has been identified as the endomysial antigen. Studies have demonstr- ated that endomysial IgA antibodies have over 99% specificity for gluten sensitive enteropathy. MRI PANCREAS FUNCTION WO/W I VCONon 02-09-2022 [facility] Hemoglobin A1con 10-19-2021 Glucose [Mass/Vol] 148 mg/dL Normal [facility] Comment on above: Performed By: #### H BA #### [facility] Routine Lab [address] [place] [address] HbA1c (Bld) [Mass fraction] 6.8 % High 4.3-5.6 [facility] Comment on above: Performed By: #### H BA1C #### [facility] Routine Lab [address] [place], [place] [id number] Hemoglobin A1con 11-27-2020 Glucose [Mass/Vol] 143 mg/dL Normal [facility] Comment on above: Performed By: #### H BA1C #### [facility] Routine Lab [address] [place], [place] [address] HbA1c (Bld) [Mass fraction] 6.6 % High 4.3-5.6 [facility] Comment on above: Performed By: #### H BA1C #### [facility] Routine Lab [address] [place], [place] [address] Lab Report: Basic Metabolic Profile (BMP)on 11-22-2017 Anion gap 9 mmol/L Invalid Interpretation Code 5-15 [facility] Work Phone: [phone] BUN/Creatinine Ratio 28.0 RATIO High 10-20 [facility] [employer] Work Phone: [phone] Calcium 8.7 mg/dL Invalid Interpretation Code 8.5-10.1 [facility] Work Phone: [phone] Chloride 104 mmol/L Invalid Interpretation Code 98-107 [facility] Work Phone: [phone] CO2 26.0 mmol/L Invalid Interpretation Code 21.0-32.0 [facility] Work Phone: [phone] Creatinine 0.93 mg/dL Invalid Interpretation Code 0.70-1.30 [facility] Work Phone: [phone] eGFR (non-black) 105 mL/min/{1.73_m2} Invalid Interpretation Code >60 [facility] Work Phone: [phone] eGFR (non-black) 87 mL/min/{1.73_m2} Invalid Interpretation Code >60 [facility] Work Phone: [phone] Glucose 96 mg/dL Invalid Interpretation Code 74-106 [facility] Work Phone: [phone] Potassium 3.7 mmol/L Invalid Interpretation Code 3.5-5.1 [facility] Work Phone: [phone] Sodium 139 mmol/L Invalid Interpretation Code 136-145 [facility] Work Phone: [phone] Urea nitrogen 26 mg/dL High 7-18 [employer] Work Phone: [phone] Lab Report: CBC-Complete Blo od Cnt No Diffon 11-22-2017 Erythrocytes (RBC) 4.76 10*6/uL Invalid Interpretation Code 4.6-6.2 [facility] Work Phone: [phone] Hematocrit (HCT) 43.4 % Invalid Interpretation Code 40-54 [facility] Work Phone: [phone] Hemoglobin (HGB) 14.4 g/dL Invalid Interpretation Code 13.0-16.5 [facility] Work Phone: [phone] MCH 30.3 pg Invalid Interpretation Code 27.0-32.0 [facility] Work Phone: [phone] MCHC 33.2 G/GL Invalid Interpretation Code 32-36 [facility] Work Phone: [phone] MCV 91.2 fL Invalid Interpretation Code 80-94 [facility] Work Phone: [phone] Platelets 318 10*3/mm3 Invalid Interpretation Code 150-450 [facility] Work Phone: [phone] PMV by Marvin 10.0 fL Invalid Interpretation Code 6.2-12.0 [facility] Work Phone: [phone] RDW-CA 14.0 % Invalid Interpretation Code 11.6-14.6 [facility] Work Phone: [phone] red blood cell distribution width, size density 46.1 fL High 35.1-43.9 [facility] Work Phone: [phone] WBC (Leukocytes) 6.9 10*3/uL Invalid Interpretation Code 4.4-11.0 [facility] Work Phone: [phone] Lab Report: Prothrombin Time w/INRon 11-22-2017 Coagulation tissue factor induced in platelet poor plasma 13.7 s Invalid Interpretation Code 11.7-14.9 [facility] Work Phone: [phone] INR in blood by coagulation 1.1 {INR} Invalid Interpretation Code [facility] Phone: [phone] Office Visiton 08-02-2017 Dietary management education, guidance, and counseling (procedure) yes Invalid Interpretation Code [facility] Phone: [phone] Documentation of current medications (procedure) Done Invalid Interpretation Code [facility] Phone: [phone] Replaced Document: Brennon Burt CG Observationson 08-02-2017 EKG QRS axis 40 deg Invalid Interpretation Code [facility] Phone: [phone] electrocardiogram interpretation Sinus Rhythm WITHIN NORMAL LIMITS Invalid Interpretation Code [facility] Phone: [phone] GE use only - for [employer] import when terms are not otherwise specified 385 ms Invalid Interpretation Code [facility] Phone: [phone] Interpretation Sinus Rhythm WITHIN NORMAL LIMITS Invalid Interpretation Code [facility] Phone: [phone] P Depue 58 deg Invalid Interpretation Code [facility] Phone: [phone] P wave axis, electrocardiogram 58 deg Invalid Interpretation Code [facility] Phone: [phone] OK Interval 182 ms Invalid Interpretation Code [facility] Phone: [phone] OK interval, electrocardiogram 182 ms Invalid Interpretation Code [facility] Phone: [phone] Pulse (Heart Rate) 79 /min Invalid Interpretation Code [facility] Phone: [phone] QRS axis, electrocardiogram 40 deg Invalid Interpretation Code [facility] Phone: [phone] QRS Duration 85 ms Invalid Interpretation Code [facility] Phone: [phone] QRS duration, electrocardiogram 85 ms Invalid Interpretation Code [facility] Phone: [phone] QT Interval new path ms Invalid Interpretation Code [facility] Phone: [phone] QT interval, electrocardiogram new path ms Invalid Interpretation Code [facility] Phone: [phone] QTc Herbert 385 ms Invalid Interpretation Code [facility] Phone: T Depue 28 deg Invalid Interpretation Code [facility] Work Phone: [phone] T wave axis, electrocardiogram 28 deg Invalid Interpretation Code [facility] Work Phone: [phone] Clinical 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 Hemoglobin A1c/Hemoglobin.total mass fraction (Bld) 6.1 % Invalid Interpretation Code [facility] Work Phone: [phone] Alanine aminotransferase (ALT) 37 U/L Invalid Interpretation Code [facility] Work Phone: [phone] Albumin 4.3 g/dL Invalid Interpretation Code [facility] Work Phone: [phone] Alkaline phosphatase (ALP) 54 U/L Invalid Interpretation Code [facility] Work Phone: [phone] Aspartate aminotransferase (AST) 25 U/L Invalid Interpretation Code [facility] Work Phone: [phone] Bilirubin (total) 0.5 mg/dL Invalid Interpretation Code [facility] Work Phone: [phone] BUN/Creatinine Ratio 18 mg/mg Invalid Interpretation Code [facility] Work Phone: [phone] Calcium 9.1 mg/dL Invalid Interpretation Code [facility] Work Phone: [phone] Chloride 107 mmol/L Invalid Interpretation Code [facility] Work Phone: [phone] Cholesterol 152 mg/dL Invalid Interpretation Code [facility] Work Phone: [phone] Cholesterol to HDL Ratio 4.2 {ratio} Invalid Interpretation Code [facility] Work Phone: [phone] CO2 31.0 mmol/L High [facility] Work Phone: [phone] Creatinine 1.0 mg/dL Invalid Interpretation Code [facility] Work Phone: [phone] Globulin 2.4 g/dL Invalid Interpretation Code [facility] Work Phone: [phone] Glucose mass conc 116 mg/dL High [facility] Work Phone: [phone] HDL Cholesterol 36 mg/dL Low [facility] Work Phone: [phone] LDL Cholesterol 95 mg/dL Invalid Interpretation Code [facility] Work Phone: [phone] Potassium molar conc 3.7 mmol/L Invalid Interpretation Code [facility] Work Phone: [phone] Protein 6.7 g/dL Invalid Interpretation Code [facility] Work Phone: [phone] Sodium 141 mmol/L Invalid Interpretation Code [facility] Work Phone: [phone] Triglyceride 104 mg/dL Invalid Interpretation Code [facility] Work Phone: [phone] Urea nitrogen 18 mg/dL Invalid Interpretation Code [facility] Work Phone: [phone] Erythrocyte distribution width Auto Ratio (RBC) 14.2 % Invalid Interpretation Code [facility] Work Phone: [phone] Erythrocytes (RBC) 4.81 10*6/uL Invalid Interpretation Code [facility] Work Phone: [phone] Hematocrit (HCT) 43.2 % Invalid Interpretation Code [facility] Work Phone: [phone] Hemoglobin mass conc (Bld) 14.5 g/dL Invalid Interpretation Code [facility] Work Phone: [phone] MCH 30 pg Invalid Interpretation Code [facility] Work Phone: [phone] MCHC mass conc (RBC) 34 g/dL Invalid Interpretation Code [facility] Work Phone: [phone] MCV 90 fL Invalid Interpretation Code [facility] Work Phone: [phone] Platelets 248 10*3/mm3 Invalid Interpretation Code [facility] Phone: [phone] PMV by Marvin 8.5 fL Invalid Interpretation Code [facility] Work Phone: [phone] WBC (Leukocytes) 7.0 10*3/uL Invalid Interpretation Code [facility] Work Phone: [phone] Office Visit: [facility] 04-23-20 13 Documentation of current medications (procedure) Done Invalid Interpretation Code [facility] Phone: [phone] Replaced Document: Brennon Burt CG Observationson 04-23-2013 Pulse (Heart Rate) 397 ms Invalid Interpretation Code [facility] Phone: [phone] Lab Reporton 03-04-2013 Albumin/Globulin Ratio 2.0 {ratio} Invalid Interpretation Code [facility] Phone: [phone] Office Visiton 10-23-2012 Tobacco smoking status NHIS Tobacco smoking status NHIS Invalid Interpretation Code [facility] Work Phone: [phone] Tobacco use CPHS never smoker Invalid Interpretation Code [facility] Work Phone: [phone] Office Visiton 08-31-2011 cardiac risk group C Invalid Interpretation Code [facility] Work Phone: [phone] cholesterol, target level 200 mg/dL Invalid Interpretation Code [facility] Work Phone: [phone] General cardiovascular disease 10Y risk [#] Lee.D'Agostino N/A Invalid Interpretation Code [facility] Work Phone: [phone] HDL cholesterol, serum, target level 40 mg/dL Invalid Interpretation Code [facility] Work Phone: [phone] LDL target level 100 mg/dL Invalid Interpretation Code [facility] Work Phone: [phone] triglyceride, target level 150 mg/dL Invalid Interpretation Code [facility] Work Phone: [phone] Vital Signs Date Time Vital Sign Value Performing Clinician [facility] 05-20-2025 10:28-0400 Body height 177.[address] Kem Davila MD Work Phone: [facility] 05-20-2025 10:28-0400 Body mass index (BMI) [Ratio] 34.1 kg/m2 Dr. Kem Davila MD Work Phone: [facility] 05-20-2025 10:28-0400 Body weight 107.[address] Kem Davila MD Work Phone: [facility] 05-20-2025 10:28-0400 Diastolic blood pressure 78 mm[Hg] Dr. Kem Davila MD Work Phone: [facility] 05-20-2025 10:28-0400 Heart rate 49 /min Dr. Kem Davila MD Work Phone: [facility] 05-20-2025 10:28-0400 Respiratory rate 18 /min Dr. Kem Davila MD Work Phone: [facility] 05-20-2025 10:28-0400 Systolic blood pressure 136 mm[Hg] Dr. Kem Davila MD Work Phone: [facility] 05-19-2025 12:01-0400 Body temperature 98.1 [degF] Dr. Kem Davila MD Work Phone: [facility] 05-19-2025 12:01-0400 Diastolic blood pressure 79 mm[Hg] Dr. Kem Davila MD Work Phone: [facility] 05-19-2025 12:01-0400 Heart rate 81 /min Dr. Kem Davila MD Work Phone: [facility] 05-19-2025 12:01-0400 Respiratory rate 16 /min Dr. Kem Davila MD Work Phone: [facility] 05-19-2025 12:01-0400 SaO2% (BldA) [Mass fraction] 100 % Dr. Kem Davila MD Work Phone: [facility] 05-19-2025 12:01-0400 Systolic blood pressure 176 mm[Hg] Dr. Kem Davila MD Work Phone: [facility] 05-19-2025 08:55-0400 Body height 177.[address] Kem Davila MD Work Phone: [facility] 05-19-2025 08:55-0400 Body mass index (BMI) [Ratio] 75.6 kg/m2 Dr. Kem Davila MD Work Phone: [facility] 05-19-2025 08:55-0400 Body weight 239.[address] Kem Davila MD Work Phone: [facility] 05-12-2025 15:03-0400 Body height 180.[address] Kem Davila MD Work Phone: [facility] 05-12-2025 15:03-0400 Body mass index (BMI) [Ratio] 33.7 kg/m2 Dr. Kem Davila MD Work Phone: [facility] 05-12-2025 15:03-0400 Body weight 109.[address] Kem Davila MD Work Phone: [facility] 05-12-2025 15:03-0400 Diastolic blood pressure 75 mm[Hg] Dr. Kem Davila MD Work Phone: [facility] 05-12-2025 15:03-0400 Heart rate 67 /min Dr. Kem Davila MD Work Phone: [facility] 05-12-2025 15:03-0400 Respiratory rate 16 /min Dr. Kem Davila MD Work Phone: [facility] 05-12-2025 15:03-0400 SaO2% (BldA) [Mass fraction] 93 % Dr. Kem Davila MD Work Phone: [facility] 05-12-2025 15:03-0400 Systolic blood pressure 136 mm[Hg] Dr. Kem Davila MD Work Phone: [facility] 05-13-2024 11:46-0400 Body mass index (BMI) [Ratio] 32.72 kg/m2 Emeli Hollins MD Work Phone: [facility] 05-13-2024 11:46-0400 Body weight 106.4 kg Emeli Hollins MD Work Phone: [facility] 05-13-2024 11:46-0400 Diastolic blood pressure 86 mm[Hg] Emeli Hollins MD Work Phone: [facility] 05-13-2024 11:46-0400 Heart rate 56 /min Emeli Hollins MD Work Phone: [facility] 05-13-2024 11:46-0400 Systolic blood pressure 145 mm[Hg] Emeli Hollins MD Work Phone: [facility] 10-20-2023 14:11-0500 Diastolic blood pressure 69 mm[Hg] Dr. Kem Davila Work Phone: [facility] 10-20-2023 14:11-0500 Systolic blood pressure 125 mm[Hg] Dr. Kem Davila Work Phone: [facility] 10-20-2023 13:15-0500 Heart rate 92 /min Dr. Kem Davila Work Phone: [facility] 10-20-2023 13:15-0500 Respiratory rate 18 /min Dr. Kem Davila Work Phone: [facility] 10-20-2023 12:12-0500 Body height 180.[address] Kem Davila Work Phone: [facility] 10-20-2023 12:12-0500 Body mass index (BMI) [Ratio] 34.1 kg/m2 Dr. Kem Davila Work Phone: [facility] 10-20-2023 12:12-0500 Body temperature 99.8 [degF] Dr. Kem Davila Work Phone: [facility] 10-20-2023 12:12-0500 Body weight 110.[address] Kem Davila Work Phone: [facility] 10-20-2023 12:12-0500 SaO2% (BldA) [Mass fraction] 100 % Dr. Kem Davila Work Phone: [facility] 04-03-2023 10:57-0400 Body weight 107.68 kg Emeli Hollins MD Work Phone: [facility] 04-03-2023 10:57-0400 Diastolic blood pressure 76 mm[Hg] Emeli Hollins MD Work Phone: [facility] 04-03-2023 10:57-0400 Heart rate 81 /min Emeli Hollins MD Work Phone: [facility] 04-03-2023 10:57-0400 Systolic blood pressure 122 mm[Hg] Emlei Hollins MD Work Phone: [facility] 12-09-2022 08:54-0500 Body height 180.3 cm Jay Miranda MD Work Phone: [facility] 12-09-2022 08:54-0500 Body temperature 97.11 [degF] Jay Miranda MD Work Phone: [facility] 12-09-2022 08:54-0500 Body weight 106.59 kg Jay Miranda MD Work Phone: [facility] 12-09-2022 08:54-0500 Diastolic blood pressure 67 mm[Hg] Jay Miranda MD Work Phone: [facility] 12-09-2022 08:54-0500 Heart rate 68 /min Jay Miranda MD Work Phone: [facility] 12-09-2022 08:54-0500 Respiratory rate 14 /min Jay Miranda MD Work Phone: [facility] 12-09-2022 08:54-0500 SaO2% (BldA) [Mass fraction] 100 % Jay Miranda MD Work Phone: [facility] 12-09-2022 08:54-0500 Systolic blood pressure 136 mm[Hg] Jay Miranda MD Work Phone: [facility] 10-31-2022 09:50-0500 Body temperature 97.5 [degF] Emeli Hollins MD Work Phone: [facility] 10-31-2022 09:50-0500 Body weight 104.83 kg Emeli Hollins MD Work Phone: [facility] 10-31-2022 09:50-0500 Diastolic blood pressure 81 mm[Hg] Emeli Hollins MD Work Phone: [facility] 10-31-2022 09:50-0500 Heart rate 62 /min Emeli Hollins MD Work Phone: [facility] 10-31-2022 09:50-0500 Respiratory rate 18 /min Emeli Hollins MD Work Phone: [facility] 10-31-2022 09:50-0500 SaO2% (BldA) [Mass fraction] 100 % Emeli Hollins MD Work Phone: [facility] 10-31-2022 09:50-0500 Systolic blood pressure 135 mm[Hg] Emlei Hollins MD Work Phone: [facility] 07-20-2022 10:31-0400 Body height 180.3 cm Azam Oconnell MD Work Phone: [facility] 07-20-2022 10:31-0400 Body temperature 96.3 [degF] Azam Oconnell MD Work Phone: [facility] 07-20-2022 10:31-0400 Body weight 101.7 kg Azam Oconnell MD Work Phone: [facility] 07-20-2022 10:31-0400 Diastolic blood pressure 83 mm[Hg] Azam Oconnell MD Work Phone: [facility] 07-20-2022 10:31-0400 Heart rate 62 /min Azam Oconnell MD Work Phone: [facility] 07-20-2022 10:31-0400 SaO2% (BldA) [Mass fraction] 96 % Azam Oconnell MD Work Phone: [facility] 07-20-2022 10:31-0400 Systolic blood pressure 135 mm[Hg] Azam Oconnell MD Work Phone: [facility] 06-21-2022 14:12-0400 Diastolic blood pressure 60 mm[Hg] [facility] Work Phone: 09-06-2022 14:12-0400 Heart rate 75 /min [facility] Work Phone: 06-21-2022 14:120400 Respiratory rate 18 /min [facility] Work Phone: 06-21-2022 14:12-0400 SaO2% (BldA) [Mass fraction] 97 % [facility] Work Phone: 06-21-2022 14:12-0400 Systolic blood pressure 130 mm[Hg] [facility] Work Phone: 06-21-2022 13:13-0400 Body temperature 99.1 [degF] [facility] Work Phone: 06-21-2022 12:37-0400 Body height 180.[address] [facility] Work Phone: 06-21-2022 12:37-0400 Body mass index (BMI) [Ratio] 32.1 kg/m2 [facility] Work Phone: 06-21-2022 12:37-0400 Body weight 104.[address] [facility] Work Phone: 06-06-2022 10:10-0400 Body height 180.3 cm Ulices Taveras MD Work Phone: [facility] 06-06-2022 10:10-0400 Body temperature 97.11 [degF] Ulices Taveras MD Work Phone: [facility] 06-06-2022 10:10-0400 Body weight 103.96 kg Ulices Taveras MD Work Phone: [facility] 06-06-2022 10:10-0400 Diastolic blood pressure 80 mm[Hg] Ulices Taveras MD Work Phone: [facility] 06-06-2022 10:10-0400 Heart rate 56 /min Ulices Taveras MD Work Phone: [facility] 06-06-2022 10:10-0400 Respiratory rate 14 /min Ulices Taveras MD Work Phone: [facility] 06-06-2022 10:10-0400 SaO2% (BldA) [Mass fraction] 96 % Ulices Taveras MD Work Phone: [facility] 06-06-2022 10:10-0400 Systolic blood pressure 148 mm[Hg] Ulices Taveras MD Work Phone: [facility] 05-12-2022 11:36-0400 Diastolic blood pressure 75 mm[Hg] [facility] Work Phone: 05-12-2022 11:36-0400 Heart rate 80 /min [facility] Work Phone: 05-12-2022 11:36-0400 Systolic blood pressure 122 mm[Hg] [facility] Work Phone: 05-12-2022 11:32-0400 Body height 180.[address] [facility] Work Phone: 05-12-2022 11:32-0400 Body mass index (BMI) [Ratio] 31.8 kg/m2 [facility] Work Phone: 05-12-2022 11:32-0400 Body weight 103.[address] [facility] Work Phone: 05-12-2022 11:32-0400 Respiratory rate 16 /min [facility] Work Phone: 05-12-2022 11:32-0400 SaO2% (BldA) [Mass fraction] 96 % [facility] Work Phone: 05-09-2022 11:37-0400 Body height 176.5 cm Ulices Taveras MD Work Phone: [facility] 05-09-2022 11:37-0400 Body temperature 98.01 [degF] Ulices Taveras MD Work Phone: [facility] 05-09-2022 11:37-0400 Body weight 105.51 kg Ulices Taveras MD Work Phone: [facility] 05-09-2022 11:37-0400 Diastolic blood pressure 74 mm[Hg] Ulices Taveras MD Work Phone: [facility] 05-09-2022 11:37-0400 Heart rate 64 /min Ulices Taveras MD Work Phone: [facility] 05-09-2022 11:37-0400 Respiratory rate 18 /min Ulices Taveras MD Work Phone: [facility] 05-09-2022 11:37-0400 SaO2% (BldA) [Mass fraction] 95 % Ulices Taveras MD Work Phone: [facility] 05-09-2022 11:37-0400 Systolic blood pressure 134 mm[Hg] Ulices Taveras MD Work Phone: [facility] 04-25-2022 16:40-0400 Body height 179.1 cm Ulices Taveras MD Work Phone: [facility] 04-25-2022 16:40-0400 Body temperature 97.7 [degF] Ulices Taveras MD Work Phone: [facility] 04-25-2022 16:40-0400 Body weight 103.51 kg Ulices Taveras MD Work Phone: [facility] 04-25-2022 16:40-0400 Diastolic blood pressure 82 mm[Hg] Ulices Taveras MD Work Phone: [facility] 04-25-2022 16:40-0400 Heart rate 77 /min Ulices Taveras MD Work Phone: [facility] 04-25-2022 16:40-0400 Respiratory rate 14 /min Ulices Taveras MD Work Phone: [facility] 04-25-2022 16:40-0400 SaO2% (BldA) [Mass fraction] 95 % Ulices Taveras MD Work Phone: [facility] 04-25-2022 16:40-0400 Systolic blood pressure 138 mm[Hg] Ulices Taveras MD Work Phone: [facility] 04-23-2022 13:50-0400 Diastolic blood pressure 72 mm[Hg] Alek Negron MD Work Phone: [facility] 04-23-2022 13:50-0400 Heart rate 56 /min Alek Negron MD Work Phone: [facility] 04-23-2022 13:50-0400 Respiratory rate 16 /min Alek Negron MD Work Phone: [facility] 04-23-2022 13:50-0400 SaO2% (BldA) [Mass fraction] 96 % Alek Negron MD Work Phone: [facility] 04-23-2022 13:50-0400 Systolic blood pressure 125 mm[Hg] Alek Negron MD Work Phone: [facility] 04-23-2022 11:14-0400 Body temperature 97.59 [degF] Alek Negron MD Work Phone: [facility] 04-23-2022 11:14-0400 Body weight 104.33 kg Alek Negron MD Work Phone: [facility] 02-09-2022 12:31-0400 Diastolic blood pressure 87 mm[Hg] Mri (I-Stat/1.5t/3t) Work Phone: [facility] 02-09-2022 12:31-0400 Heart rate 78 /min Mri (I-Stat/1.5t/3t) Work Phone: [facility] 02-09-2022 12:31-0400 SaO2% (BldA) [Mass fraction] 98 % Mri (I-Stat/1.5t/3t) Work Phone: [facility] 02-09-2022 12:31-0400 Systolic blood pressure 131 mm[Hg] Mri (I-Stat/1.5t/3t) Work Phone: [facility] 02-09-2022 09:47-0400 Respiratory rate 16 /min Mri (I-Stat/1.5t/3t) Work Phone: [facility] 12-19-2021 05:10-0500 Diastolic blood pressure 72 mm[Hg] [facility] Work Phone: 12-19-2021 05:10-0500 Heart rate 64 /min [facility] Work Phone: 12-19-2021 05:10-0500 Respiratory rate 15 /min [facility] Work Phone: 12-19-2021 05:10-0500 SaO2% (BldA) [Mass fraction] 91 % [facility] Work Phone: 12-19-2021 05:10-0500 Systolic blood pressure 124 mm[Hg] [facility] Work Phone: 12-19-2021 04:10-0500 Diastolic blood pressure 72 mm[Hg] [facility] Work Phone: 12-19-2021 04:10-0500 Heart rate 64 /min [facility] Work Phone: 12-19-2021 04:10-0500 Respiratory rate 15 /min [facility] Work Phone: 12-19-2021 04:10-0500 SaO2% (BldA) [Mass fraction] 91 % [facility] Work Phone: 12-19-2021 04:10-0500 Systolic blood pressure 124 mm[Hg] [facility] Work Phone: 12-19-2021 02:25-0500 Body height 180.[address] [facility] Work Phone: 12-19-2021 02:25-0500 Body mass index (BMI) [Ratio] 32.1 kg/m2 [facility] Work Phone: 12-19-2021 02:25-0500 Body temperature 98.1 [degF] [facility] Work Phone: 12-19-2021 02:25-0500 Body weight 104.[address] [facility] Work Phone: 12-19-2021 01:25-0500 Body height 180.[address] [facility] Work Phone: 12-19-2021 01:25-0500 Body mass index (BMI) [Ratio] 32.1 kg/m2 [facility] Work Phone: 12-19-2021 01:25-0500 Body temperature 98.1 [degF] [facility] Work Phone: 12-19-2021 01:25-0500 Body weight 104.[address] [facility] Work Phone: 10-25-2021 09:17-0500 Body weight 103.[address] [facility] Work Phone: 10-25-2021 09:17-0500 Diastolic blood pressure 78 mm[Hg] [facility] Work Phone: 10-25-2021 09:17-0500 Heart rate 62 /min [facility] Work Phone: 10-25-2021 09:17-0500 Systolic blood pressure 133 mm[Hg] [facility] Work Phone: 10-22-2020 07:32-0500 Body mass index (BMI) [Ratio] 33.2 kg/m2 [facility] Work Phone: 08-02-2017 14:09-0400 BMI (Body [...] BMI (Body Mass Index) 32.89 kg/m2 [facility] Work Phone: 04-23-2013 [...] 05-20-2025 End: 05-20-2025 [facility] Start: 05-20-2025 End: 05-20-[address] Kem Davila MD Work Phone: [facility] Start: 05-19-2025 End: 05-19-2025 Emergency department patient visit Dr. Kem Davila MD Work Phone: -Emergency Department Work Phone: Start: 05-12-2025 End: 05-12-2025 [facility]: Start: 05-12-2025 End: 05-12-[address] Kem Davila MD Work Phone: [facility] Start: 11-25-2024 End: 11-25-2024 ambulatory Kemnicholas Davila Facility:[facility] [place] Start: 06-03-2024 End: 06-03-2024 ambulatory Kemnicholas Davila Facility:[facility] Start: 05-13-2024 End: 05-14-2024 ambulatory KEM G LOLA Facility:[facility] Start: 05-13-2024 End: 05-14-2024 Office outpatient visit 25 minutes Emeli Hollins MD Work Phone: Geriatrics Comment on above: Word finding difficu lty (Primary Dx); Gait disturbance; Anxiety Start: 11-16-2023 End: 11-16-2023 ambulatory [facility] Start: 11-13-2023 End: 11-14-2023 ambulatory KEM DAVILA Facility:[facility] Start: 10-20-2023 End: 10-20-2023 Emergency department patient visit Dr. Kem Davila Work Phone: [facility]Emergency Department Work Phone: Start: 08-28-2023 End: 08-28-[address] Kem Davila Work Phone: [facility] Work Phone: Start: [...] Start: 12-08-2022 Patient encounter procedure [facility] Provider [facility] Start: 11-30-2022 Chart abstracting Emeli Hollins [...] Start: 10-25-2022 Patient encounter procedure [facility] Provider [facility] Start: 08-26-2022 Kena Lopez MD Work Phone: [facility] Comment on above: Opened In Error Start: 08-20-2022 Patient encounter procedure [facility] Provider [facility] Start: 07-20-2022 End: 07-20-2022 Patient encounter procedure Azam Oconnell MD Work Phone: Gastroenterology Comment on above: 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)] (Primary Dx) Start: 07-01-2022 Patient encounter procedure [facility] Provider [facility] Start: 06-21-2022 End: 06-21-2022 Emergency department patient visit [facility] Start: 06-06-2022 End: 06-06-2022 Office outpatient visit 25 minutes Ulices Taveras MD Work Phone: [facility] Comment on above: Preoperative clearan ce (Primary Dx) Start: 06-06-2022 End: 06-06-2022 Preoperative state Ulices Taveras MD Work Phone: [facility] Start: 05-30-2022 Non-patient / Non-visit [facility] Start: 05-30-2022 End: 05-30-2022 Patient encounter procedure [facility] Start: 05-25-2022 Patient encounter procedure [facility] Provider [facility] Start: 05-23-2022 Patient encounter procedure [facility] Provider [facility] Start: 05-17-2022 Patient encounter procedure [facility] Provider [facility] Start: 05-12-2022 End: 05-12-2022 Patient encounter procedure [facility] Start: 05-09-2022 End: 05-09-2022 Office outpatient visit 15 minutes Ulices Taveras MD Work Phone: [facility] Comment on above: Primary hypertension (Primary Dx); Mixed hyperlipidemia; Ischemic heart disease; Hx of myocardial infarction; Diabetes mellitus type II (HCC); Idiopathic gout, unspecified chronicity, unspecified site; Anxiety Start: 05-09-2022 End: 05-09-2022 Patient encounter procedure [facility] Start: 04-28-2022 Telephone encounter Ulices Taveras MD Work Phone: [facility] Comment on above: Orders (pain managem ent referral) Start: 04-25-2022 End: 04-25-2022 Office outpatient visit 15 minutes Ulices Taveras MD Work Phone: [facility] Comment on above: Acute midline low ba ck pain with right-sided sciatica (Primary Dx) Start: 04-23-2022 End: 04-23-2022 Emergency department patient visit Alek Negron MD Work Phone: [facility] Emergency Dept Comment on above: Right hip pain (Prim alexander Dx); Osteoarthritis of both hips, unspecified osteoarthritis type Start: 04-22-2022 Patient encounter procedure [facility] Provider [facility] Start: 04-04-2022 End: 04-04-[address] [facility] Start: 03-07-2022 Patient encounter status [facility] Provider [facility] Start: 02-09-2022 ambulatory Eufemia miramontes Comment on above: Patient Education Start: 02-09-2022 End: 02-09-2022 Subsequent hospital visit by physician Mri 7 Radio Main Q (I-Stat/1.5t/3t) Work Phone: MRI [facility] Comment on above: Exocrine pancreatic insufficiency [K86.81] Start: 01-17-2022 Non-patient / Non-visit [facility] Start: 01-17-2022 End: 01-17-2022 Patient encounter procedure [facility] Start: 12-19-2021 End: 12-19-2021 Emergency department patient visit [facility] Start: 2021 Telephone encounter Tony Oconnell MD Work Phone: Gastroenterology Comment on above: Received Outside [facility] Records Start: 10-25-2021 End: 10-25-2021 Patient encounter procedure [facility] Procedures Date Procedure [...] Comment on above: Performed By: #### 2 [id number] #### [facility],[address] [place] [address] Start: 10-20-2023 SARS-CoV-2, Influenz a & RSV [...] PA-C Work Phone: Start: 04-23-2013 End: 08-02-2017 BLOWING WEASAND Prisca Lopes PA-C Work Phone: Start: 04-23-2013 End: 08-02-2017 Ecg routine ecg w/least 12 lds w/i&r Prisca Lopes PA-C Work Phone: Start: 04-23-2013 End: 08-02-2017 Follow Up Appt 6 months Prisca Lopes PA-C Work Phone: Start: 04-23-2013 End: 08-02-2017 BLOWING WEASAND Prisca Lopes PA-C Work Phone: Start: 04-23-2013 [...] stent placement Ulices Taveras Comment on above: [id number] LAD w/ 4.0 x 12 mm Liberte Stent 09/09/2006 Plan of Treatment Date Care Activity Detail Author Start: 11-03-2032 Urine microalbumin profile [facility] Start: 06-24-2029 Colonoscopy COLONOSCOPY [facility] Start: 06-24-2029 COLORECTAL CANCER SCREENING COLORECTAL CANCER SCREENING [facility] Start: 06-24-2029 Screening for malign ant neoplasm of colon [facility] Start: 05-19-2025 [facility] Start: 05-19-2025 [facility] Start: 05-13-2025 Annual PCP Team [employer] jose l Disease Visit Annual PCP Team Chronic Disease Visit [facility] Start: 02-03-2025 End: 02-03-2025 Patient encounter procedure 02/03/2025 11:30 AM EDT Office Visit Geriatrics [address] [place] [address] Emeli Hollins MD [address] [place] [address] 9 month follow up Geriatrics Comment on above: 9 month follow up Start: 12-15-2024 DIABETES SCREEN DIABETES SCREEN [facility] Start: 06-16-2024 Influenza vaccination Influenza Vacc ine (#1) [facility] Start: 04-03-2024 ANNUAL PCP TEAM GATEMAN JOSE L DISEASE VISIT ANNUAL PCP TEAM CHRONIC DISEASE VISIT [facility] Start: 04-03-2024 BP CONTROLLED (<130/80) BP CONTROLLE D (<130/80) [facility] Start: 10-31-2023 ANNUAL PCP TEAM GATEMAN JOSE L DISEASE VISIT ANNUAL PCP TEAM CHRONIC DISEASE VISIT [facility] Start: 10-20-2023 [facility] Start: 10-16-2023 Advance Directive Discussion Advance Directive Discussion [facility] Start: 06-16-2023 Covid-19 Vaccine ( season) Covid-19 Vaccine ( season) [facility] Start: 06-06-2023 ANNUAL PCP TEAM GATEMAN JOSE L DISEASE VISIT ANNUAL PCP TEAM CHRONIC DISEASE VISIT [facility] Start: 05-09-2023 ANNUAL PCP TEAM GATEMAN JOSE L DISEASE VISIT ANNUAL PCP TEAM CHRONIC DISEASE VISIT [facility] Start: 04-25-2023 ANNUAL PCP TEAM GATEMAN JOSE L DISEASE VISIT ANNUAL PCP TEAM CHRONIC DISEASE VISIT [facility] Start: 11-02-2022 Hemoglobin A1c measurement HbA1C [facility] Start: 11-02-2022 Hemoglobin A1c/Hemoglobin.total in Blood HBA1C [facility] Start: 10-16-2022 ADVANCE DIRECTIVE DISCUSSION ADVANCE DIRECTIVE DISCUSSION [facility] Start: 06-16-2022 Influenza vaccination S [facility] Start: 10-16-2021 ADVANCE DIRECTIVE DISCUSSION ADVANCE DIRECTIVE DISCUSSION [facility] Start: 06-16-2021 Influenza vaccination INFLUENZA (#1) [facility] Start: 06-15-2021 COVID-19 VACCINE (3 - Booster for Moderna series) COVID-19 VACCINE (3 - Booster for Moderna series) [facility] Start: 03-10-2021 COVID-19 VACCINE (3 - Booster for Moderna series) COVID-19 VACCINE (3 - Booster for Moderna series) [facility] Start: 01-29-2018 End: 01-29-2018 Appointment Appointment [facility] Work Phone: Start: 2017 ADVANCE DIRECTIVE DISCUSSION ADVANCE DIRECTIVE DISCUSSION [facility] Start: 2017 Pneumococcal 65+ yea rs Vaccine (1 - PCV) Pneumococcal 65+ years Vaccine (1 - PCV) [facility] Start: 2017 PNEUMOVAX AGE 65 AND OVER WITH 5YR LOOKBACK (#1) PNEUMOVAX AGE 65 AND OVER WITH 5YR LOOKBACK (#1) [facility] Start: 08-02-2017 End: 08-02-2017 Appointment Appointment [facility] Work Phone: Start: 08-02-2017 End: 08-02-2017 Follow Up Appt 6 months Follow Up Appt 6 months [facility] Work Phone: Start: 08-02-2017 End: 08-02-2017 MMM MMM [facility] Work Phone: Start: 08-02-2017 End: 08-02-2017 Follow Up Appt 6 months Follow Up Appt 6 months [facility] Work Phone: Start: 08-02-2017 End: 08-02-2017 MMM MMM [facility] Work Phone: Start: 09-03-2014 Hepatitis B surface antibody level LDL CHOLESTEROL [facility] Start: 08-16-2014 Hepatitis B surface antibody level LDL Cholesterol [facility] Start: 02-13-2014 End: 09-05-2013 *Hepatic Function Panel *Hepatic Function Panel [facility] Work Phone: Start: 02-13-2014 End: 09-05-2013 Lipid panel [AGGREGATE] *Lipid Profile CC PCP [facility] Work Phone: Start: 02-13-2014 End: 09-05-2013 *Hepatic Function Panel *Hepatic Function Panel [facility] Work Phone: Start: 02-13-2014 End: 09-05-2013 Lipid panel [AGGREGATE] *Lipid Profile CC PCP [facility] Work Phone: Start: 08-16-2013 End: 09-03-2013 *Hepatic Function Panel *Hepatic Function Panel [facility] Work Phone: Start: 08-16-2013 End: 09-03-2013 Lipid panel [AGGREGATE] *Lipid Profile CC PCP [facility] Work Phone: Start: 08-16-2013 End: 09-03-2013 *Hepatic Function Panel *Hepatic Function Panel [facility] Work Phone: Start: 08-16-2013 End: 09-03-2013 Lipid panel [AGGREGATE] *Lipid Profile CC PCP [facility] Work Phone: Start: 04-23-2013 End: 08-02-2017 BLOWING WEASAND BLOWING WEASAND [facility] Work Phone: Start: 04-23-2013 End: 08-02-2017 Ecg routine ecg w/least 12 lds w/i&r EKG (In office) [facility] Work Phone: Start: 04-23-2013 End: 08-02-2017 Follow Up Appt 6 months Follow Up Appt 6 months [facility] Work Phone: Start: 04-23-2013 End: 08-02-2017 BLOWING WEASAND BLOWING WEASAND [facility] Work Phone: Start: 04-23-2013 End: 08-02-2017 Electrocardiogram, complete EKG (In office) [facility] Work Phone: Start: 04-23-2013 End: 08-02-2017 Follow Up Appt 6 months Follow Up Appt 6 months [facility] Work Phone: Start: 2012 RSV Vaccine (1 - 1-d ose 60+ series) RSV Vaccine (1 - 1-dose 60+ series) [facility] Start: 10-23-2012 End: 04-03-2013 Follow Up Appt 6 months Follow Up Appt 6 months [facility] Work Phone: Start: 10-23-2012 End: 04-03-2013 Follow Up Appt 6 months Follow Up Appt 6 months [facility] Work Phone: Start: 10-16-2012 End: 03-04-2013 *Hepatic Function Panel *Hepatic Function Panel [facility] Work Phone: Start: 10-16-2012 End: 03-04-2013 Lipid panel [AGGREGATE] *Lipid Profile [facility] Work Phone: Start: 10-16-2012 [...] 6 months Follow Up Appt 6 months [facility] Work Phone: Start: 08-31-2011 End: 08-31-2011 Follow Up Appt 6 months Follow Up Appt 6 months [facility] Work Phone: Start: 08-31-2011 End: 08-31-2011 Follow Up Appt 6 months Follow Up Appt 6 months [facility] Work Phone: Start: 2007 PROSTATE CANCER SCREENING DISCUSSION PROSTATE CANCER SCREENING DISCUSSION [facility] Start: 2002 Shingles vaccine (1 of 2) Shingles vaccine (1 of 2) [facility] Start: 2002 SHINGRIX VACCINE (1 of 2) SHINGRIX VACCINE (1 of 2) [facility] Start: 1997 COLOGUARD (FIT-DNA) COLOGUARD (FIT-D NA) [facility] Start: 1997 Colonoscopy COLONOSCOPY [facility] Start: 1997 COLORECTAL CANCER SCREENING COLORECTAL CANCER SCREENING [facility] Start: [address] COLONOGRAPHY [facility] Start: 1997 DIABETES SCREEN DIABETES SCREEN [facility] Start: 1997 FECAL OCCULT BLOOD FECAL OCCULT BLOO D [facility] Start: 1997 Screening for malign ant neoplasm of colon [facility] Start: 1997 SIGMOIDOSCOPY SIGMOIDOSCOPY [facility] Start: [address] [facility] Start: 1992 Prostate specific antigen measurement Prostate Specific Antigen (PSA) Screening or Monitoring [facility] Start: 1987 LIPID SCREEN LIPID SCREEN [facility] Start: 1971 DTaP/Tdap/Td vaccine (1 - Tdap) DTaP/Tdap/Td vaccine (1 - Tdap) [facility] Start: 1971 Urine microalbumin profile DTAP,TDAP,TD (1 - Tdap) [facility] Start: 1970 BP CONTROLLED (<130/80) BP CONTROLLE D (<130/80) [facility] Start: 1970 Hepatitis B surface antibody level LDL CHOLESTEROL [facility] Start: 1970 HEPATITIS C SCREENING HEPATITIS C SC REENING [facility] Start: 1970 Hepatitis C screening S [facility] Start: 1964 Adult depression screening assessment DEPRESSION SCREENING [facility] Start: 1964 Depression Screen Depression Screen [facility] Start: 1962 3 comp foot exam completed DIABETIC FOOT EXAM [facility] Start: 1962 Diabetic foot examination Diabetic Foot Exam [facility] Start: 1962 Glaucoma screening Dilated Retinal E xam [facility] Start: 1962 Hepatitis B screening URINE ALBUMIN:CREATININE RATIO [facility] Start: 1962 Hepatitis C antibody , confirmatory test DILATED RETINAL EXAM [facility] Start: 1958 PNEUMOCOCCAL: 65+ (1 - PCV) PNEUMOCOCCAL: 65+ (1 - PCV) [facility] Start: 1957 COVID-19 VACCINE (1) COVID-19 VACCIN E (1) [facility] Start: 1957 Hemoglobin A1c/Hemoglobin.total in Blood HBA1C [facility] 24 Hour ECG [facility] End: 11-30-2023 MRI 3D POST PROCESSING MRI 3D POST PROCESSING Radiology Routine Cognitive impairment, mild, so stated 1 Occurrences starting 10/31/2022 until 11/30/2023 [facility] Work Phone: Comment on above: 1 Occurrences starti ng 10/31/2022 until 11/30/2023 End: 01-08-2024 Mri brain brain stem w/o contrast material MRI BRAIN WO IVCON Radiology Routine Cerebral infarction, unspecified mechanism (HCC) 1 Occurrences starting 12/09/2022 until 01/08/2024 [facility] Work Phone: Comment on above: 1 Occurrences starti ng 12/09/2022 until 01/08/2024 End: 11-30-2023 MRI BRAIN W QUANT WO IVCON MRI BRAIN W QUANT WO IVCON Radiology Routine Cognitive impairment, mild, so stated 1 Occurrences starting 10/31/2022 until 11/30/2023 [facility] Work Phone: Comment on above: 1 Occurrences starti ng 10/31/2022 until 11/30/2023 NM Heart Views W str ess and W radionuclide IV [facility] Patient Education [facility] Work Phone: Patient referral [facility] Work Phone: [facility] Immunizations Immunization Date Immunization Notes Care Provider [facility] 08-29-2024 influenza, high dose seasonal, preservative-free Dr. Kem Davila MD Work Phone: [facility] 08-29-2024 RSV Adult BiValent (Abrysvo) Dr. Kem Davila MD Work Phone: [facility] 08-28-2023 influenza, injectabl e, quadrivalent, preservative free Dr. Kem Davila Work Phone: [facility] 08-28-2023 influenza virus vacc ine, unspecified formulation Emeli Hollins MD Work Phone: [facility] 11-03-2022 tetanus toxoid, redu gwen diphtheria toxoid, and acellular pertussis vaccine, adsorbed Emeli Hollins MD Work Phone: [facility] 08-18-2022 influenza (HD-IIV4) vaccine, age 65+ yr, high dose, quadrivalent, PF (FLUZONE HIGH-DOSE) Emeli Hollins MD Work Phone: [facility] 08-18-2022 Influenza, high dose seasonal Dr. Kem Davila MD Work Phone: [facility] 08-18-2022 influenza, high dose seasonal, preservative-free Dr. Kem Davila Work Phone: [facility] 08-23-2021 pneumococcal polysaccharide vaccine, 23 valent Emeli Hollins MD Work Phone: [facility] 08-19-2021 influenza (aIIV4) vaccine, age 65+ yr, quadrivalent, PF (FLUAD QUAD) Emeli Hollins MD Work Phone: [facility] 08-19-2021 Influenza, high dose seasonal Dr. Kem Davila MD Work Phone: [facility] 08-19-2021 influenza, high dose seasonal, preservative-free Dr. Kem Davila Work Phone: [facility] 08-19-2021 influenza, injectabl e, quadrivalent, preservative free Dr. Kem Davila MD Work Phone: [facility] 01-13-2021 Covid (Moderna) Dr. Kem sandoval Work Phone: [facility] 12-17-2020 Covid (Moderna) Dr. Kem sandoval Work Phone: [facility] 08-10-2020 influenza (aIIV4) vaccine, age 65+ yr, quadrivalent, PF (FLUAD QUAD) Emeli Hollins MD Work Phone: [facility] 08-10-2020 Influenza, high dose seasonal Dr. Kem Davila MD Work Phone: [facility] 08-10-2020 influenza, high dose seasonal, preservative-free Dr. Kem Davila Work Phone: [facility] 08-10-2020 influenza, injectabl e, quadrivalent, preservative free Dr. Kem Davila MD Work Phone: [facility] 07-18-2019 Influenza, high dose seasonal Dr. Kem Davila MD Work Phone: [facility] 07-18-2019 influenza, high dose seasonal, preservative-free Emeli Hollins MD Work Phone: [facility] 07-18-2019 pneumococcal conjuga te vaccine, 13 valent Emeli Hollins MD Work Phone: [facility] 01-12-2009 hepatitis B vaccine, pediatric or pediatric/adolescent dosage Emeli Hollins MD Work Phone: [facility] 09-08-2008 influenza virus vacc ine, whole virus Emeli Hollins MD Work Phone: [facility] 09-08-2008 influenza, injectabl e, quadrivalent, preservative free Dr. Kem Davila Work Phone: [facility] 08-11-2008 hepatitis B vaccine, pediatric or pediatric/adolescent dosage Emeli Hollins MD Work Phone: [facility] 07-10-2008 hepatitis B vaccine, pediatric or pediatric/adolescent dosage Emeli Hollins MD Work Phone: [facility] Payers Date Payer Category Payer Self-pay [id number] 2017 Medicare MEDICARE MEDICAR E A AND B [id number] 2017-Present [phone] [place] [address] Medicare [id number] 2017 Medicare MEDICARE MEDICAR E A AND B [id number] 2017-Present [phone] [address] [place] [id number] Medicare [id number] 2017 Unknown [employer] 2N D [id number] 2017-Present [phone] [address] [address] [place] [address] Indemnity [id number] 2017 Unknown [employer] 2N D [id number] 2017-Present [phone] [address] [address] [place] [address] Indemnity [id number] 2017 Medicare [id number] 2017 Unknown [id number] 1950 Unknown [id number] Private Health Insurance H [id number] Unknown [facility] *DO NOT USE* [id number] Unknown [id number] Unknown [id number] Unknown [id number] Unknown [id number] Unknown [id number] Social History Date Type Detail Facility Start: 12-19-2021 End: 10-20-2023 Tobacco smoking status MAIS Tobacco smoking consumption unknown [facility] Start: 1950 Sex Assigned At Not on file [facility] Start: 04-13-2022 End: 07-20-2022 Exposure to SARS-CoV-2 (event) Not sure [facility] Start: 09-17-2019 None [facility] Start: 09-17-2019 Spouse/ Signif icant Other [facility] Start: 1950 Sex Assigned At Male W [facility] Start: 12-15-2021 End: 05-19-2025 Tobacco smoking status NHIS Never smoked tobacco [facility] Start: 12-15-2021 End: 12-09-2022 Tobacco use and exposure Smokeless tobacco non-user [facility] Start: 12-15-2021 End: 03-07-2022 Alcohol intake Lifetime non-drinker (finding) [facility] Start: 12-15-2021 End: 04-23-2022 History SDOH Alcohol Frequency 1 [facility] Start: 04-25-2022 End: 05-13-2024 Alcohol intake Current drinker of alcohol (finding) [facility] Start: 04-25-2022 History SDOH Alcohol Comment social [facility] Start: 03-21-2023 End: 05-13-2024 History of Social function [facility] Start: 03-21-2023 End: 05-13-2024 Tobacco use panel [facility] Adult Depression Screening Assessment 0 [facility] Medical Equipment Procedure Code Equipment Code [...] & Type Note Facility 05-19-2025 Discharge summary [facility] 05-19-2025 Radiology Diagnostic study note [facility] Services [address] [place] [address] Chest PA and Lateral MR#: [id number] Acct: [id number] Name: RUSLAN STEPHENS Rep #: [id number] : [id number] M 74 From: Reinaldo Dick MD PCP: Dr. Kem Davila MD Status: REG ER Study:Chest PA and Lateral Date of Exam: 05/19/25 Exam# [id number] Ordering Dr: Jayson Lerner DO PROCEDURE: CHEST [...] Lateral IMPRESSION: NO ACUTE FINDINGS. Reading Location: [id number] CC: Dr. Kem Davila MD; Dr. 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: Signed [facility] 05-12-2025 Evaluation note Diagnosis Onset Date Resolution Atherosclerotic heart disease of [place] coronary artery without angina pectoris chronic May 12, 2025 2:59pm Essential (primary) hypertension chronic May 12, 2025 2:59pm Hyperlipidemia chronic May 12, 2025 2:59pm [facility] Work Phone: 1(290) 389-312707-28-2025 Evaluation note* Diagnosis Onset Date Resolution Status Admit Date Atherosclerotic heart diseas e of [place] coronary artery without angina pectoris chronic May 12, 2025 2:59pm Essential (primary) hypertension chr onic May 12, 2025 2:59pm Hyperlipidemia chronic May 12, 2025 2:59pm Bradycardia acute May 20, 2 025 10:17am Exertional dyspnea acute May 20, 2025 10:17am Atherosclerotic heart diseas e of [place] coronary artery without angina pectoris chronic May 20, 2025 10:17am Essential (primary) hypertension chr onic May 20, 2025 10:17am Hyperlipidemia chronic May 10:17am [facility] Work Phone: 1(982) 583-328007-28-[address] [facility] [address] [place], [place] [id number] OFFICE VISIT Date of Service: 05/12/25 MR#: [id number] Acct: [id number] Name: URSLAN STEPHENS Rep #: [id number] : 1950 Provider: LAMAR Link Age/Sex: 74/M Location: [facility] Status: Signed HPI HPI History of Present Illness Details: RUSLAN STEPHENS, is a 74 M who presents to the office today for a follow-up visit.? He is a gentleman with a history of coronary artery disease status post bare-metal stenting to the proximal left anterior descending artery in 2005 at [facility].? 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 Accompanied by: Is patient [...] (Reviewed 05/12/25 @ 15:33 by Joseph Link BILLIARD TABLE MECHANIC, BILLIARD TABLE MECHANIC-C) Gout Near syncope Urinary tract infection Obesity History of non-ST elevation myocardial infarction (NSTEMI) (09/09/06) Essential (primary) hypertension Hernia Hyperlipidemia Atherosclerotic heart disease of [place] coronary artery without angina pectoris Surgical History (Reviewed 05/12/25 @ 15:33 by Joseph H Roof BILLIARD TABLE MECHANIC, BILLIARD TABLE MECHANIC-C) Cataract extraction status H/O wrist surgery History [...] current occupational status: employed 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 Average [...] and Plan (1) Atherosclerotic heart disease of [place] coronary artery without angina pectoris: Status: Chronic Qualifiers: [place] vs. transplanted heart: [place] heart Qualified Code(s): I25.10 - Atherosclerotic heart disease of [place] coronary artery without angina pectoris Comment: CDF-LBV-Wwtu LAD w/ 4.0 x 12 mm Liberte [...] Code Off vis,est,level 4 Diagnoses Atherosclerosis of [place] coronary artery of [place] heart without angina pectoris I25.10 [place] vs. transplanted heart: [place] heart Essential (primary) hypertension I10 Pure hypercholesterolemia E78.00; E78.0 Hyperlipidemia type: pure hypercholesterolemia Coding Level of Care Code Off vis,est,level 4 Diagnoses Atherosclerosis of [place] coronary artery of [place] heart without angina pectoris I25.10 [place] vs. transplanted heart: [place] heart Essential (primary) hypertension I10 Pure hypercholesterolemia E78.00; E78.0 Hyperlipidemia type: pure hypercholesterolemia Clinical Quality Measures Falls Risk Screening/Assistive Devices Have you fallen in the past year?: No Cardiac Ejection fraction %: 55 05/12/25 1538 P BILLIARD TABLE MECHANIC-C> Date _ Joseph Pradhanignashley Signature: Date (if applicable) CC: Dr. Kem Davila MD ~ [facility]07-28-2025 Progress note Author Joseph Link [facility] Note Date/Time May 12, 2025 3:[address] [facility] [address] [place] [address]. [address] [place] [address] OFFICE VISIT Date of Service: 05/12/25 MR#: [id number] Acct: [id number] Name: RUSLAN STEPHENS Rep #: [id number] : 1950 Provider: LAMAR Link Age/Sex: 74/M Location: [facility] Status: Signed HPI HPI History of Present Illness Details: RUSLAN STEPHENS, is a 74 M who presents to the office today for a follow-up visit.? He is a gentleman with a history of coronary artery disease status post bare-metal stenting to the proximal left anterior descending artery in 2005 at [facility].? 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 Accompanied by: Is patient [...] (Reviewed 05/12/25 @ 15:33 by Joseph Link BILLIARD TABLE MECHANIC, BILLIARD TABLE MECHANIC-C) Gout Near syncope Urinary tract infection Obesity History of non-ST elevation myocardial infarction (NSTEMI) (09/09/06) Essential (primary) hypertension Hernia Hyperlipidemia Atherosclerotic heart disease of [place] coronary artery without angina pectoris Surgical History [...] spouse current occupational status: employed current occupation: [employer] Smoking Status: Never smoker Electronic Cigarette Use: [...] 05/09/2022 Interpretation There were a total of 190731 beats recorded over the 24 hours. Average [...] and Plan (1) Atherosclerotic heart disease of [place] coronary artery without angina pectoris: Status: Chronic Qualifiers: [place] vs. transplanted heart: [place] heart Qualified Code(s): I25.10 -Atherosclerotic heart disease of [place] coronary artery without angina pectoris Comment: [id number] LAD w/ 4.0 x 12 mm Liberte [...] Code Off vis,est,level 4 Diagnoses Atherosclerosis of [place] coronary artery of [place] heart without angina pectoris I25.10 [place] vs. transplanted heart: [place] heart Essential (primary) hypertension I10 Pure hypercholesterolemia E78.00; E78.0 Hyperlipidemia type: pure hypercholesterolemia Coding Level of Care Code Off vis,est,level 4 Diagnoses Atherosclerosis of [place] coronary artery of [place] heart without angina pectoris I25.10 [place] vs. transplanted heart: [place] heart Essential (primary) hypertension I10 Pure hypercholesterolemia E78.00; E78.0 Hyperlipidemia type: pure hypercholesterolemia Clinical Quality Measures Falls Risk Screening/Assistive Devices Have you fallen in the past year?: No Cardiac Ejection fraction %: 55 05/12/25 1538 <Electronically signed by Joseph NEWTON> Date _ Joseph Link NP, NP-C Cosigner Signature: Date (if applicable) CC: Dr. Kem Davila MD ~ [employer] [employer] Work Phone: 1(691) 513-740007-29-2024 NoteHNO ID: [id number] Author: EMELI HOLLINS MD Service: ? Author [...] 32.72 kg/m? GEN: Pleas (more content not included)...[facility]07-29-2024 History of Present illness Narrative* Emeli [...] per tablet Take by mouth. 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 Seen by cerebrovascular medicine and advised MRI brain and a follow-up visit in a year. -Okay to continue aspirin. Remain off of Plavix. Follow-Up - 6 months. Needs MOCA next visit I spent a total of 30 minutes on the date of the service which included preparing to see the patient, yvjx-gw-zxyi patient care, completing clinical documentation, obtaining and/or reviewing separately obtained history, performing a medically appropriate examination, counseling and educating the pat ient/family/caregiver, ordering medications, tests, or procedures, and communicating with other HCPs (not separately reported). Voice recognition software was used to compose this office note. Please excuse any unintended typographical errors Emeli Hollins M.D Geriatric Medicine [facility] documented in this encounterH[facility]01-29-2024 NoteHNO ID: [id number] Author: EMELI HOLLINS MD Service: ? Author [...] as appropriate. Please see relevant sections in [facility] EHR for details Current Medications (identify [...] appropriately. No dysa (more content not included)... [facility]06-19-2023 Instructions* Patient Instructions* Emeli Hollins MD [...] have benefit for memory. documented in this encounterHarrison [facility]06-19-2023 History of Present illness Narrative* Emeli [...] (H) 4.3 - 5.6 % Final Comment: [place] [employer] guidelines indicate that patients with [...] (H) 4.3 - 5.6 % Final Comment: [place] [employer] guidelines indicate that patients with [...] which included preparing to see the patient, skxj-kd-crnt patient care, completing clinical documentation, obtaining and/or reviewing separately obtained history, performing a medically appropriate examination, counseling and educating the pat ient/family/caregiver, ordering medications, tests, or procedures, and communicating with other HCPs (not separately reported). Voice recognition software was used to compose this office note. Please excuse any unintended typographical errors Emeli Hollins MD Geriatric Medicine [facility] 04/03/2023 11:30 AM CC: Referring Physician: MARCO PCP: Ulices Taveras [address] [place] [address] Patient Entered Data: Patient-Reported No flowsheet data [...] No flowsheet data found. documented in this encounterH[facility]02-24-2023 Instructions* Patient Instructions* Jay Miranda MD [...] year after MRI brain. documented in this encounterH[facility]02-24-2023 History of Present illness Narrative* Jay Miranda MD - 12/09/2022 9:00 AM EST Images from the original note were not included. [facility] Initial Visit Consultation is requested by: Dr. Emeli Hollins PCP: Ulices Taveras [address] [place] [address] Emeli Hollins for [...] in October 2022. 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 Coordination: Rapid alternating movements symmetric bilaterally. Vfpocm-bj-bgge, uwwh-pu-kfaq without dysmetria bilaterally. Reflexes: 2+/4 reflexes symmetric [...] which included preparing to see the patient, xezp-fd-ptiw patient care, completing clinical documentation, obtaining and/or reviewing separately obtained history, performing a medically appropriate examination, counseling and educating the patient/family/caregiver, ordering medications, tests, or procedures, communicating with other HCPs (not separately reported), independently interpreting results (not separately reported), and communicatingresults to the patient/family/caregiver SEEMA Miranda MD. MPH Staff, Cerebrovascular Division [facility] Neu[facility] [place] [facility] No referring provider defined for this encounter. Ulices Taveras [address] [place] [address] documented in this encounterHarrison [facility] Hospital02-15-2023 History of Present illness Narrative* Maricel Guerrero - 11/30/2022 9:47 AM EST 11/30 Faxed signed plan of care and scanned that and fax confirmation into scanned documents. LM documented in this encounterHarrison [facility] Hospital01-27-2023 Miscellaneous Notes* Telephone Encounter - Prisca Cazares RN - 11/11/2022 1:15 PM EST Per email from Dr. Miranda, Can you please help with a new patient visit with me for this patient? Referral by a colleague. Called and spoke with patient's spouse, Mirian. Accepted an in person appointment on 12/09 @ [address] Miranda aware. Prisca Cazares RN documented in this encounterHarrison [facility] Hospital01-27-2023 Miscellaneous Notes* Telephone Encounter - Emeli [...] after that is done. documented in this encounterHarrison [facility] Hospital01-24-2023 History of Present illness Narrative* RT [...] 08, 2022 10:11 AM documented in this encounterHarrison [facility] Hospital01-16-2023 Instructions* Patient Instructions* Emeli Hollins MD [...] that have benefit for memory. For neuropsychological: [phone] For MRI: [phone] documented in this encounterHarrison [facility] Hospital01-16-2023 History of Present illness Narrative* Emeli Hollins MD - 10/31/2022 10:30 AM EST Images from the original note were not included. 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 He got pulled over for [employer] about a month ago. is worried about [...] vision impairment and wears glasses Follows with integrated circuit layout designer:YES Hearing - Hearing aid : Hearing impairment, [...] mellitus), type 2 (HCC) Gout History of OR (myocardial infarction) Hypercholesterolemia Hypertension Ischemic heart disease [...] No Known Allergies Social History: Primary language: Solomon Islander Marital Status: Living situation: Home w/ Spouse Caregiver stress level:? Moderate Socially engaged? (participates in activities such as clubs, jew, community center, sports, games, visiting friends/relatives, etc?): [...] which included preparing to see the patient, nulg-iw-munb patient care, completing clinical documentation, obtaining and/or [...] any unintended typographical errors Emeli Hollins MD [place] [facility] documented in this encounterH[facility]10-05-2022 History of Present illness Narrative* Azam [...] 2021 - this was normal No diabetes OR 2005 cardiac stent ------ is on PLavix [...] Enzymes cap Take by mouth. secretin, Human, ([employer]) 16 mcg solr For MRI PANCREAS FUNCTION WO/W IVCON. Inject 0.2 mcg/kg/dose intravenously as directed. Slow push at the appropriate time during MRI 1 Each 0 No current facility-administered medications for this visit. ALLERGIES ALLERGIES No Known Allergies PAST MEDICAL HISTORY PAST MEDICAL HISTORY Diagnosis Date Depression DM (diabetes mellitus), type 2 (HCC) Gout History of OR (myocardial infarction) Hypercholesterolemia Hypertension Ischemic heart disease [...] Past Histories independently gathered by the clinical support services coordinator and the remaining scribed note accurately describes [...] 19, 2022 4:17 PM documented in this encounterHarrison [facility] Hospital09-06-2022 Hospital Discharge instructions Additional Instructions Recommend drinking 1 glass of MiraLAX every 1-2 hours until you have results. The following day recommend MiraLAX 3 times a day as long as you are on the pain medicine.[facility] Work Phone: 1(702) 657-578508-22-2022 NoteHNO ID: [id number] Author: Ulices Taveras MD Service: ? Author Type: Physician Type: Progress Notes Filed: 06/06/2022 11:18 AM Note Text: This note was created using Curried Away Cateringriter. Subjective Ruslan Stephens is a 71 year [...] received cardiac clearance. He is cleared for procedure.[facility]08-22-2022 NoteHNO ID: [id number] Author: Ulices Taveras MD Service: ? Author Type: Physician Type: Progress Notes Filed: 06/06/2022 11:18 AM Note Text: This note was created using VitaFlavor. Subjective Ruslan Stephens is a 71 year [...] and Affect: Mood normal. Behavior: Behavior normal. [facility]08-22-2022 History of Present illness Narrative* Ulices Taveras MD - 06/06/2022 11:16 AM EDT This note was created using VitaFlavor. Subjective Ruslan Stephens is a 71 year [...] AM EDT This note was created using [employer] Away Cateringriter. Subjective Ruslan Stephens is a 71 year [...] normal. Assessment and Plan documented in this encounterH[facility]07-25-2022 NoteHNO ID: [id number] Author: Ulices Taveras MD Service: ? Author Type: Physician Type: Progress Notes Filed: 05/09/2022 1:59 PM Note Text: This note was created using Curried Away Cateringriter. Subjective Ruslan Stephens is a 71 year [...] weight. Reduce stress. Recheck A1c in 3 months.[facility]07-25-2022 History of Present illness Narrative* Ulices Taveras [...] A1c in 3 months. documented in this encounterHarrison [facility] Hospital07-14-2022 Miscellaneous Notes* Telephone Encounter - Ulices Taveras MD - 04/28/2022 4:55 PM EDT [facility] * Telephone Encounter - Tequila Rodriguez LPN - 04/28/2022 3:34 PM EDT Pt called in asking to be referred to pain management. documented in this encounterHarrison [facility] Hospital07-11-2022 NoteHNO ID: [id number] Author: Ulices Taveras MD Service: ? Author Type: Physician Type: Progress Notes Filed: 04/25/2022 6:00 PM Note Text: This note was created using VitaFlavor. Subjective Ruslan Stephens is a 71 year [...] daily for 7 days. Moist heat. Stretching exercises.[facility]07-11-2022 History of Present illness Narrative* Ulices Taveras MD - 04/25/2022 5:57 PM EDT This note was created using VitaFlavor. Subjective Ruslan Stephens is a 71 year [...] Moist heat. Stretching exercises. documented in this encounterHarrison Community Hospital07-11-2022 Nurse Note* Kaila Gary LPN - 04/25/2022 4:55 PM EDT Pt had went to [facility] and had an xray that didn't show anything. Pt was prescriped medrol pk onThursday prescribed flexaril 5 mg tab Pt still has complaints of 5/10 pain documented in this encounterHarrison [facility] Hospital04-27-2022 History of Present illness Narrative* VALENTE [...] 09, 2022 9:44 AM documented in this encounterHarrison [facility] Hospital04-27-2022 History of Present illness Narrative* Eufemia [...] By Eufemia Chandler, RN documented in this encounterHarrison [facility] Hospital01-31-2022 Miscellaneous Notes* Telephone Encounter - Anjelica Ross Pss - 2021 3:[address] Oconnell Medical Records including: H&P, CT scan, Pathology report, colonoscopy and labs have been received and uploaded to Patient's chart for your review. Anjelicaher Ross (Joni) [employer] E Business Developer II DDSI documented in this encounterHarrison [facility] Hospital12-12-2019 History of Past illness Narrative* Problem Noted Date Resolved Date Sepsis 09/26/2019 06/26/2022 documented as of this encounter (statuses as of 07/04/2022) [facility] of Past illness Narrative* Problem Noted Date Resolved Date Sepsis 09/26/2019 06/26/2022 documented as of this encounter (statuses as of 07/20/2022) [facility] of Past illness Narrative* Problem Noted Date Resolved Date Sepsis 09/26/2019 06/26/2022 documented as of this encounter (statuses as of 08/22/2022) [facility] Narrative* Problem Noted Date Resolved Date Sepsis 09/26/2019 06/26/2022 documented as of this encounter (statuses as of 08/26/2022) [facility] of [facility] illness Narrative* Problem Noted Date Resolved Date Sepsis 09/26/2019 06/26/2022 documented as of this encounter (statuses as of 10/25/2022) [facility] Narrative* Problem Noted Date Resolved Date Sepsis 09/26/2019 06/26/2022 documented as of this encounter (statuses as of 10/31/2022) [facility] Narrative* Problem Noted Date Resolved Date Sepsis 09/26/2019 06/26/2022 documented as of this encounter (statuses as of 11/01/2022) [address]12[address] History of Past illness Narrative* Problem Noted Date Resolved Date Sepsis 09/26/2019 06/26/2022 documented as of this encounter (statuses as of 11/09/2022) [facility] Narrative* Problem Noted Date Resolved Date Sepsis 09/26/2019 06/26/2022 documented as of this encounter (statuses as of 11/11/2022) [address]12[address]2019 History of Past illness Narrative* Problem Noted Date Resolved Date Sepsis 09/26/2019 06/26/2022 documented as of this encounter (statuses as of 11/11/2022) [address]2019 History of Past illness Narrative* Problem Noted Date Resolved Date Sepsis 09/26/2019 06/26/2022 documented as of this encounter (statuses as of 11/30/2022) [facility] Narrative* Problem Noted Date Resolved Date Sepsis 09/26/2019 06/26/2022 documented as of this encounter (statuses as of 12/08/2022) [address] History of Past illness Narrative* Problem Noted Date Resolved Date Sepsis 09/26/2019 06/26/2022 documented as of this encounter (statuses as of 12/27/2022) [address] History of Past illness Narrative* Problem Noted Date Resolved Date Sepsis 09/26/2019 06/26/2022 documented as of this encounter (statuses as of 04/06/2023) [facility]11-[facility] Evaluation note* Diagnosis Onset Date Resolution Status Atherosclerotic heart diseas e of [place] coronary artery without angina pectoris chronic Essential (primary) hypertension chronic Hyperlipidemia chronic History of coronary artery stent placement September 092005 resolved [facility] Work Phone: 1(586) 591-404611-25-2006 Evaluation note* Diagnosis Onset Date Resolution Status Near syncope acute Shortness of breath acute Essential (primary) hypertension chronic History of coronary artery stent placement September 092005 [facility] Work Phone: Chief complaint+Reason for visit Narrative* Chief Complaint 2ND SHINGRIX AND FLU SHOT CONGESTION Reason for Visit Immunization due [facility] Work Phone: Discharge summary Author [facility] Note Date/Time May 19, 2025 11: 48am [facility] Medical Records Department [address] [place] [address] Emergency Department Summary 05/19/25 MR#: [id number] Acct: [id number] Name: RUSLAN STEPHENS Rep #:[id number] : 1950 74 From: Jayson bone DO [...] with walking up inclines. He saw his chain hooker in April but did not inform him [...] intact Psych: Cooperative, appropriate mood and affect [facility] Medical History (Reviewed 05/12/25 @ 15:33 by Joseph Link BILLIARD TABLE MECHANIC, BILLIARD TABLE MECHANIC-C) Gout Near syncope Urinary tract infection Obesity History of non-ST elevation myocardial infarction (NSTEMI) (09/09/06) Essential (primary) hypertension Hernia Hyperlipidemia Atherosclerotic heart disease of [place] coronary artery without angina pectoris Home Medications [...] (Reviewed 05/12/25 @ 15:33 by Joseph Link BILLIARD TABLE MECHANIC, BILLIARD TABLE MECHANIC-C) Father Myocardial infarction CAD (coronary artery disease) [...] spouse current occupational status: employed current occupation: [employer] Smoking Status: Never smoker Electronic Cigarette Use: [...] with walking up inclines. He saw his chain hooker in April but did not inform him [...] no obvious ischemia. His last cardiac cath [id number] showed mild CAD with no high- grade [...] % (Auto) 66.4 Lymph % (Auto) 19.0 [place] % (Auto) 11.5 H Eos % (Auto) [...] Clarity Clear Urine pH 6.0 Ur Specific [place] 1.020 Urine Protein 30 H Urine Glucose [...] 09:30 IMPRESSION: NO ACUTE FINDINGS. Reading Location: [id number] Discharge Plan Triage Chief Complaint: Shortness of [...] PO DAILY Qty: 90 1RF calcium carb-D3-mag [id number] 333 mg-200 unit -133 mg-5 mg tablet [...] MD [Primary Care Provider] - Print Language: Solomon Islander What to do if you have Problems For any increased pain, shortness of breath, bleeding, nausea or vomiting, chestpain, or any unexpected problems, contact your Primary Care Provider. Call [facility] ([phone]) or report to the closest Emergency Room. Call 911 if necessary. 05/19/25 1148 <Electronically signed by Jayson Ellison DO> Cosigner Signature (if applicable): CC: Dr. Kem Davila MD ~ Signed [facility] Work Phone: Evaluation note* Diagnosis Exocrine pancreatic insufficiency Other specified disease of pancreas documented in this encounter [facility] noteNo assessment information availableWAvita [facility] Work Phone: Evaluation note* Diagnosis Right hip pain- Primary Pain in joint, pelvic region and thigh Osteoarthritis of both hips, unspecified osteoarthritis type documented in this encounter [facility] Work Phone: Evaluation note* Diagnosis Acute midline low back pain with right-sided sciatica- Primary documented in this encounter [facility] note* Diagnosis Bilateral low back pain with sciatica, sciatica laterality unspecified, unspecified chronicity- Primary documented in this encounter [facility] note* Diagnosis Primary hypertension- Primary Unspecified essential hypertension Mixed hyperlipidemia Ischemic heart disease Chronic ischemic heart disease, unspecified Hx of myocardial infarction Old myocardial infarction Diabetes mellitus type II (HCC) Idiopathic gout, unspecified chronicity, unspecified site Anxiety Anxiety state, unspecified documented in this encounter [facility] note* Diagnosis Preoperative clearance- Primary Preoperative examination, unspecified documented in this encounter [facility] note* Diagnosis 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)]- Primary Functional diarrhea documented in this encounter [facility] note* Diagnosis Cognitive impairment, mild, so stated- Primary Mild cognitive impairment, so stated Fall, initial encounter Gait disturbance Abnormality of gait Anxiety Anxiety state, unspecified Bilateral hearing loss, unspecified hearing loss type Impacted cerumen of left ear Impacted cerumen [facility] [place] [facility]* Diagnosis Cognitive impairment, mild, so stated Mild cognitive impairment, so stated documented in this encounter [facility] note* Diagnosis Cerebral infarction, unspecified mechanism (HCC)- Primary White matter abnormality on MRI of brain Nonspecific (abnormal) findings on radiological and other examination of skull and head [facility] [place] [facility]* Diagnosis Cognitive impairment, mild, so stated- Primary Mild cognitive impairment, so stated documented in this encounter [facility] note* Diagnosis Onset Date Resolution Status Immunization due noneactive [facility] Work Phone: Evaluation note* Diagnosis Word finding difficulty- Primary Problems with communication (including speech) Gait disturbance Abnormality of gait Anxiety Anxiety state, unspecified documented in this encounter [facility] note* Diagnosis Onset Date Resolution Status Admit Date Atherosclerotic heart diseas e of [place] coronary artery without angina pectoris chronic May 12, 2025 2:59pm Essential (primary) hypertension chr onic May 12, 2025 2:59pm Hyperlipidemia chronic May 12, 2025 2:59pm [facility] Work Phone: Hospital Discharge instructions* Instructions* Pedro Luis Diggs MD - 04/23/2022 Please follow-up with your specialist at [facility]. If the symptoms worsen or persist please return back to the emergency department. documented in this encounterSC[facility] Work Phone: Hospital Discharge instructionsAdditional Instructions Follow-up with cardiology and primary care physician. Return back to ED if symptoms change or worsen.[facility] Work Phone: Reason for referral (narrative)No reason for referral information availableSt. John'[facility] Work Phone: Summary Purpose Family History No [...] No December 19, 2021 3:28am Power of Debug Technician No December 19 3:28am Documents on File Type Date Recorded Patient Broke Beater Expl anation ACP-Advance Directive ACP-Power of Debug Technician Advance Directive Response Recorded Date/ Time Advance Directives No November 10:11am Living Will No June 21, 2 022 1:13pm Power of Debug Technician No June 21, 2022 1:13pm Advance Directive Response Recorded Date/ Time Advance Directives No November 9:11am Living Will No October 20 4 12:11pm Power of Debug Technician No October 20, 2 024 12:11pm Advance Directive Response Recorded Date/ Time Advance Directives No November 10:11am Advance Directive Response Recorded Date/ Time Do you have a Healthcare Power of Debug Technician? 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 May 12, 2025 2:59pm Essential (primary) hypertension May 122024 2:59pm Hyperlipidemia May 12, 2025 2:59 pm Chief Complaint 1 Y FU - call home p maria luisa abd pain Z95.5 I25.10 I25.2/LEXISCAN Z95.5 I25.10 I25.2/LEXISCAN Reason for Visit Atherosclerotic hear t disease of [place] coronary artery without angina pectoris Essential (primary) [...] DIZZINESS May 19, 2025 8:5 4am S/P [facility] 05/19May 20, 2025 10: 17am Reason for Visit Admit Date Atherosclerotic heart diseas e of [place] coronary artery without angina pectoris May 12, 2025 2:59pm Essential (primary) hypertension May 122024 2:59pm Hyperlipidemia May 12, 2025 2:59 pm Bradycardia May 20, 2025 10: 17am Exertional dyspnea May 20, 2025 10: 17am Atherosclerotic heart diseas e of [place] coronary artery without angina pectoris May 20, 2025 10:17am Essential (primary) hypertension May 20, 2025 10:17am Hyperlipidemia May 20, 2025 10: 17am Reason for Referral Specialty Diagnoses / Procedures Referred By Darryl pagan Referred To Contact MR IMAGING Diagnoses Exocrine pancreatic insufficiency Procedures MRI PANCREAS FUNCTION WO/W IVCON MRI ABDOMEN W/O & W/CONTRAST MATERIAL Azam Oconnell MD [address] [place] [address] Mr Imaging Referral ID Status Reason Start Date Expiration Date V isits Requested Visits Authorized [id number] Closed Auto-Generate d Referral 12/15/2021 01/14/2023 1 1 Specialty Diagnoses / Procedures Referred By Darryl pagan Referred To Contact [facility] Diagnoses Acute midline low back pain with right-sided sciatica Procedures CONSULT TO PHYSICAL THERAPY PHYSICAL THERAPY EVALUATION HIGH COMPLEX 45 MINS Ulices Taveras MD [address] [place] [address] [facility] [address] [address] Referral ID Status Reason Start Date Expiration Date Visits Requested Visits Authorized [id number] Authorized PCP Requested Referral Auto-Generate d Referral 04/25/2022 04/25/2023 99 99 Specialty Diagnoses / Procedures Referred By Darryl pagan Referred To Contact Pain Management Diagnoses Bilateral low back pain with sciatica, sciatica laterality unspecified, unspecified chronicity Procedures CONSULT TO [facility]) Ulices Taveras MD [address] [place] [address] [facility] [address] [place] [address] Referral ID Status Reason Start Date Expiration Date Visits Requested Visits Authorized [id number] Ref Not Required PCP Requested Referral 04/28/2022 04/28/2023 1 1 Specialty Diagnoses / Procedures Referred By Contac t Referred To Contact [facility] Diagnoses Fall, initial encounter Gait disturbance Procedures CONSULT TO PHYSICAL THERAPY PHYSICAL THERAPY EVALUATION HIGH COM[place] [address] [place] [address] [facility] [place] [address] Referral ID Status Reason Start Date Expiration Date Visits Requested Visits Authorized [id number] Authorized PCP Requested Referral Auto-Generate d Referral 10/31/2022 10/31/2023 99 99 Specialty Diagnoses / Procedures Referred By Contac t Referred To Contact MR IMAGING Diagnoses Cognitive impairment, mild, so stated Procedures MRI 3D POST PROCESSING 3D RENDERING W/INTERP&POSTPROC DIFF WORK STATION Emeli Hollins MD [address] [facility] [place] [address] Mr Imaging Referral ID Status Reason Start Date Expiration Date Visits Requested Visits Authorized [id number] Pending Review Auto-Generat ed Referral 10/31/2022 11/30/2023 1 1 Specialty Diagnoses / Procedures Referred By Contac t Referred To Contact MR IMAGING Diagnoses Cognitive impairment, mild, so stated Procedures MRI BRAIN W QUANT WO IVCON MRI BRAIN BRAIN STEM W/O CONTRAST MATERIAL Emeli Hollins MD [address] [facility] [address] [address] Mr Imaging Referral ID Status Reason Start Date Expiration Date Visits Requested Visits Authorized [id number] Pending Review Auto-Generat ed Referral 10/31/2022 11/30/2023 1 1 Referral ID Status Reason Start Date Expiration Date V isits Requested Visits Authorized [id number] Closed Auto-Generate d Referral 10/31/2022 11/30/2023 1 1 Referral ID Status Reason Start Date Expiration Date V isits Requested Visits Authorized [id number] Closed Auto-Generate d Referral 10/31/2022 11/30/2023 1 1 Specialty Diagnoses / Procedures Referred By Contac t Referred To Contact MR IMAGING Diagnoses Cerebral infarction, unspecified mechanism (HCC) Procedures MRI BRAIN WO IVCON MRI BRAIN BRAIN STEM W/O CONTRAST MATERIAL Jay Miranda MD [address] [place] [address] Mr Imaging Referral ID Status Reason Start Date Expiration Date Visits Requested Visits Authorized [id number] Pending Review Auto-Generat ed Referral 12/09/2022 01/08/2024 1 1 Additional Source Comments (unrecognized sect ion and content) No Status Records FoundNo Status Records FoundNo Status Records FoundNo Status Records FoundNo Status Records FoundNo Status Records Found INFORMATION SOURCE (unrecogn ized section and content) DATE CREATED AUTHOR 10/20/2021 [facility] DATE CREATED AUTHOR AUTHOR'S ORGANIZ ATION 05/27/2022 [facility] DATE CREATED AUTHOR AUTHOR'S ORGANIZ ATION 06/10/2022 [facility] DATE CREATED AUTHOR AUTHOR'S ORGANIZ ATION 11/17/2023 [facility] DATE CREATED AUTHOR AUTHOR'S ORGANIZ ATION 05/24/2024 [facility] DATE CREATED AUTHOR AUTHOR'S ORGANIZ ATION 05/20/2025 [facility] Source Comments (unrecognize d section and content) In the event this informatio n is protected by the Federal Confidentiality of Alcohol and Drug Abuse Patient Records regulations: The Federal rules restrict any use of the information to criminally investigate or prosecute any alcohol or drug abuse patient.[facility] the event this information is protected by the Federal Confidentiality of Alcohol and Drug Abuse Patient Records regulations: The Federal rules restrict any use of the information to criminally investigate or prosecute any alcohol or drug abuse patient.[facility] HospitalIn the event this information is protected by the Federal Confidentiality of Alcohol and Drug Abuse Patient Records regulations: The Federal rules restrict any use of the information to criminally investigate or prosecute any alcohol or drug abuse patient.[facility] HospitalIn the event this information is protected by the Federal Confidentiality of Alcohol and Drug Abuse Patient Records regulations: The Federal rules restrict any use of the information to criminally investigate or prosecute any alcohol or drug abuse patient.[facility] HospitalIn the event this information is protected by the Federal Confidentiality of Alcohol and Drug Abuse Patient Records regulations: The Federal rules restrict any use of the information to criminally investigate or prosecute any alcohol or drug abuse patient.[facility] HospitalIn the event this information is protected by the Federal Confidentiality of Alcohol and Drug Abuse Patient Records regulations: The Federal rules restrict any use of the information to criminally investigate or prosecute any alcohol or drug abuse patient.[facility] HospitalIn the event this information is protected by the Federal Confidentiality of Alcohol and Drug Abuse Patient Records regulations: The Federal rules restrict any use of the information to criminally investigate or prosecute any alcohol or drug abuse patient.[facility] Hospital[facility] the event this information is protected by the Federal Confidentiality of Alcohol and Drug Abuse Patient Records regulations: The Federal rules restrict any use of the information to criminally investigate or prosecute any alcohol or drug abuse patient.[facility] HospitalIn the event this information is protected by the Federal Confidentiality of Alcohol and Drug Abuse Patient Records regulations: The Federal rules restrict any use of the information to criminally investigate or prosecute any alcohol or drug abuse patient.[facility] HospitalIn the event this information is protected by the Federal Confidentiality of Alcohol and Drug Abuse Patient Records regulations: The Federal rules restrict any use of the information to criminally investigate or prosecute any alcohol or drug abuse patient.[facility] HospitalIn the event this information is protected by the Federal Confidentiality of Alcohol and Drug Abuse Patient Records regulations: The Federal rules restrict any use of the information to criminally investigate or prosecute any alcohol or drug abuse patient.[facility] HospitalIn the event this information is protected by the Federal Confidentiality of Alcohol and Drug Abuse Patient Records regulations: The Federal rules restrict any use of the information to criminally investigate or prosecute any alcohol or drug abuse patient.[facility] HospitalIn the event this information is protected by the Federal Confidentiality of Alcohol and Drug Abuse Patient Records regulations: The Federal rules restrict any use of the information to criminally investigate or prosecute any alcohol or drug abuse patient.[facility] HospitalIn the event this information is protected by the Federal Confidentiality of Alcohol and Drug Abuse Patient Records regulations: The Federal rules restrict any use of the information to criminally investigate or prosecute any alcohol or drug abuse patient.[facility] HospitalIn the event this information is protected by the Federal Confidentiality of Alcohol and Drug Abuse Patient Records regulations: The Federal rules restrict any use of the information to criminally investigate or prosecute any alcohol or drug abuse patient.[facility] HospitalIn the event this information is protected by the Federal Confidentiality of Alcohol and Drug Abuse Patient Records regulations: The Federal rules restrict any use of the information to criminally investigate or prosecute any alcohol or drug abuse patient.[facility] HospitalIn the event this information is protected by the Federal Confidentiality of Alcohol and Drug Abuse Patient Records regulations: The Federal rules restrict any use of the information to criminally investigate or prosecute any alcohol or drug abuse patient.[facility] HospitalIn the event this information is protected by the Federal Confidentiality of Alcohol and Drug Abuse Patient Records regulations: The Federal rules restrict any use of the information to criminally investigate or prosecute any alcohol or drug abuse patient.[facility] HospitalIn the event this information is protected by the Federal Confidentiality of Alcohol and Drug Abuse Patient Records regulations: The Federal rules restrict any use of the information to criminally investigate or prosecute any alcohol or drug abuse patient.[facility] HospitalIn the event this information is protected by the Federal Confidentiality of Alcohol and Drug Abuse Patient Records regulations: The Federal rules restrict any use of the information to criminally investigate or prosecute any alcohol or drug abuse patient.[facility] HospitalIn the event this information is protected by the Federal Confidentiality of Alcohol and Drug Abuse Patient Records regulations: The Federal rules restrict any use of the information to criminally investigate or prosecute any alcohol or drug abuse patient.[facility] HospitalIn the event this information is protected by the Federal Confidentiality of Alcohol and Drug Abuse Patient Records regulations: The Federal rules restrict any use of the information to criminally investigate or prosecute any alcohol or drug abuse patient.[facility] HospitalIn the event this information is protected by the Federal Confidentiality of Alcohol and Drug Abuse Patient Records regulations: The Federal rules restrict any use of the information to criminally investigate or prosecute any alcohol or drug abuse patient.[facility] HospitalIn the event this information is protected by the Federal Confidentiality of Alcohol and Drug Abuse Patient Records regulations: The Federal rules restrict any use of the information to criminally investigate or prosecute any alcohol or drug abuse patient.[facility] HospitalIn the event this information is protected by the Federal Confidentiality of Alcohol and Drug Abuse Patient Records regulations: The Federal rules restrict any use of the information to criminally investigate or prosecute any alcohol or drug abuse patient.[facility] HospitalIn the event this information is protected by the Federal Confidentiality of Alcohol and Drug Abuse Patient Records regulations: The Federal rules restrict any use of the information to criminally investigate or prosecute any alcohol or drug abuse patient.[facility] HospitalIn the event this information is protected by the Federal Confidentiality of Alcohol and Drug Abuse Patient Records regulations: The Federal rules restrict any use of the information to criminally investigate or prosecute any alcohol or drug abuse patient.[facility] HospitalIn the event this information is protected by the Federal Confidentiality of Alcohol and Drug Abuse Patient Records regulations: The Federal rules restrict any use of the information to criminally investigate or prosecute any alcohol or drug abuse patient.[facility] HospitalIn the event this information is protected by the Federal Confidentiality of Alcohol and Drug Abuse Patient Records regulations: The Federal rules restrict any use of the information to criminally investigate or prosecute any alcohol or drug abuse patient.[facility] Reason for Visit (unrecogniz ed section and content) Reason Comments Received Outside Medical Records Reason Comments Patient Education Reason Comments Radiology MRI Specialty Diagnoses / Procedures Referred By Contac t Referred To Contact MR IMAGING Diagnoses Exocrine pancreatic insufficiency Procedures MRI PANCREAS FUNCTION WO/W IVCON MRI ABDOMEN W/O & W/CONTRAST MATERIAL Azam Oconnell MD [address] [place] [address] Mr Imaging Referral ID Status Reason Start Date Expiration Date V isits Requested Visits Authorized [id number] Closed Auto-Generate d Referral 12/15/2021 01/14/2023 1 1 Reason Comments Hip Pain Right hip pain, repo rts he was at [facility] and had an xray a few days [...] STEM W/O CONTRAST MATERIAL Emeli Hollins MD [address] [place] [address] Mr Imaging Referral ID Status Reason Start Date Expiration Date V isits Requested Visits Authorized [id number] Closed Auto-Generate d Referral 10/31/2022 11/30/2023 1 1 Reason Comments Results Reason Comments Forms Reason Comments New Patient Evaluation Reason Comments Follow Up Reason Comments F/U 6 months Pt took meds Care Teams (unrecognized sec tion and content) Manager Environmental Services Relationship Specialty Start Date End Date Ulices Taveras PCP - General Family Practice 01/07/14 Manager Environmental Services Relationship Specialty Start Date End Date Ulices Taveras MD PCP - General Family Practice 01/07/14 Manager Environmental Services Relationship Specialty Start Date End Date Ulices Taveras MD PCP - General Family Practice 01/07/14 Manager Environmental Services Relationship Specialty Start Date End Date Ulices Taveras MD PCP - General Family Practice 01/07/14 Manager Environmental Services Relationship Specialty Start Date End Date Ulices Taveras PCP - General 11/20/18 Manager Environmental Services Relationship Specialty Start Date End Date Ulices Taveras MD PCP - General Family Practice 01/07/14 Manager Environmental Services Relationship Specialty Start Date End Date Ulices Taveras MD PCP - General Family Practice 01/07/14 Manager Environmental Services Relationship Specialty Start Date End Date Ulices Taveras MD PCP - General Family Practice 01/07/14 Manager Environmental Services Relationship Specialty Start Date End Date Ulices Taveras MD PCP - General Family Practice 01/07/14 Manager Environmental Services Relationship Specialty Start Date End Date Ulices Taveras MD PCP - General Family Practice 01/07/14 Manager Environmental Services Relationship Specialty Start Date End Date Ulices Taveras MD PCP - General Family Practice 01/07/14 Manager Environmental Services Relationship Specialty Start Date End Date Ulices Taveras MD PCP - General Family Practice 01/07/14 Manager Environmental Services Relationship Specialty Start Date End Date Ulices Taveras MD PCP - General Family Medicine 01/07/14 Manager Environmental Services Relationship Specialty Start Date End Date Ulices Taveras MD PCP - General Family Medicine 01/07/14 Manager Environmental Services Relationship Specialty Start Date End Date Ulices Taveras MD PCP - General Family Medicine 01/07/14 Manager Environmental Services Relationship Specialty Start Date End Date Ulices Taveras MD PCP - General Family Medicine 01/07/14 Manager Environmental Services Relationship Specialty Start Date End Date Ulices Taveras MD PCP - General Family Medicine 01/07/14 Manager Environmental Services Relationship Specialty Start Date End Date Ulices Taveras MD PCP - General Family Medicine 01/07/14 Manager Environmental Services Relationship Specialty Start Date End Date Ulices Taveras MD PCP - General Family Medicine 01/07/14 Manager Environmental Services Relationship Specialty Start Date End Date Ulices Taveras MD PCP - General Family Medicine 01/07/14 Manager Environmental Services Relationship Specialty Start Date End Date Ulices [...] Dr. Jeaneth Guillaume MD Emergency Provider Active Manager Environmental Services Relationship Specialty Start Date End Date Kem Davila MD [address] [address] PCP - General Internal Medicine 10/18/22 Joseph Link, ARIANNA.DISPATCHER CLERK [address] [place] [address] Cardiology 07/18/23 Tian Campbell MD [address] [place] [address] Gastroenterology 07/18/23 Team Status: Active Member Role/Relationship Status Dates Ulices OLEA Family Provider Active Dr. Kem Davila MD Primary Care Provider Active Team Status: Inactive Member Role/Relationship Status Dates Dr. Kem Davila MD Primary Care Provider Active Start: May 12, 2025 End: May 12, 2025 Dr. Kem Davila MD Referring Provider Active Start: May 12, 2025 End: May 12, 2025 Joseph Link BILLIARD TABLE MECHANIC, BILLIARD TABLE MECHANIC-C Attending Provider Active S tart: May 12, [...] 2025 End: May 20, 2025 Joseph Link BILLIARD TABLE MECHANIC, BILLIARD TABLE MECHANIC-C Attending Provider Active S tart: May 20, [...] BE BASED ON THE PRIMARY CLINICAL RECORDS. [facility] [employer] [facility]. provides no warranty or guarantee of the accuracy or completeness of information in this document.
--- NOTE | 2025-05-21 18:40 | STRESSREP ---
Stress Test Report Pharmacologic myocardial perfusion stress test. 74-year-old man with a history of dyspnea on exertion Resting EKG demonstrates sinus bradycardia with a rate of 57 bpm. Resting blood pressure is 138/96 mmHg. 0.4 mg of regadenoson was infused per usual protocol followed by rapid intravenous saline flush injection. Continuous EKG monitoring was performed. The maximum heart rate was 88 bpm which was 59% of max impacted heart rate the maximum workload was 1 metabolic equivalent. At rest there were no ST or T wave changes noted to suggest ischemia and at peak infusion nonspecific ST changes were noted which did not meet the criteria for ischemia. No clinical angina is noted. The final blood pressure was 128/82 mmHg. Myocardial perfusion protocol. 15 mCi of technetium 99m sestamibi was injected at rest. 0.4 mg of regadenoson was infused per usual protocol. At peak infusion 45 mCi of technetium 99m sestamibi was injected stress images were obtained stress and rest images were reconstructed and compared in the short axis vertical long and horizontal long axis. Gated images were also obtained. Perfusion SPECT analysis: Review of the stress images demonstrate normal uptake of tracer noted in all areas of the myocardium. The resting images similar demonstrated normal uptake of tracer noted in all areas of the myocardium. No areas of reversibility are noted to suggest ischemia and no previous infarct is noted. Gated SPECT analysis: The gated ejection fraction is 58%. Conclusion: Normal pharmacologic myocardial perfusion stress test. Preserved ejection fraction.
== END | disposition home or self-care (01) ==
LOC: CVS 06:01
PROVIDERS: PCP Internal Medicine; Referring Provider Nurse Practitioner Family; Visit Provider Nurse Practitioner Family
DX: I25.10 Atherosclerotic heart disease of native coronary artery without angina pectoris (principal); I10 Essential (primary) hypertension; E78.00 Pure hypercholesterolemia, unspecified; R06.09 Other forms of dyspnea
CPT/HCPCS: 78452; 93017; 93306; A9500; A4216; J2785

== ENCOUNTER → 2025-05-27 | Outpatient (CLI) | payer MEDICARE, OTHER, SELFPAY | END | disposition home or self-care (01) | LOC: PSN 09:08 | PROVIDERS: PCP Internal Medicine; Referring Provider Nurse Practitioner Family; Visit Provider Nurse Practitioner Family | DX: R06.09 Other forms of dyspnea (principal) | CPT/HCPCS: 94060; 94726; 94729 ==

== ENCOUNTER → 2025-06-09 | Outpatient (CLI) | payer MEDICARE, OTHER, SELFPAY | END | disposition home or self-care (01) | LOC: PSN 08:24 | PROVIDERS: PCP Internal Medicine; Referring Provider Nurse Practitioner Family; Visit Provider Nurse Practitioner Family | DX: R06.09 Other forms of dyspnea (principal); R00.1 Bradycardia, unspecified | CPT/HCPCS: 93225; 93226 ==

== ENCOUNTER → 2025-06-20 | Outpatient (CLI) | payer MEDICARE, OTHER, SELFPAY ==
--- NOTE | 2025-06-20 09:53 | CDU_ITS ---
Reason For Study Reason For Study: Syncope Rt. Velocities/BP Lt. Velocities/BP Prox CCA 61.7/9.7 cm/sec. Prox CCA 62.1/8.8 cm/sec. Mid CCA 61.7/10.7 cm/sec. Mid CCA 62.8/10.9 cm/sec. Dist CCA 57.9/13.5 cm/sec. Dist CCA 68.5/8.8 cm/sec. Prox ICA 50.9/10.2 cm/sec. Prox ICA 45.6/8.1 cm/sec. Mid ICA 44.7/12.6 cm/sec. Mid ICA 37.8/11.1 cm/sec. Dist ICA 56/12.6 cm/sec. Dist ICA 39.2/12.5 cm/sec. Rt. ICA/CCA = 0.91. Lt. ICA/CCA = 0.73. Prox ECA 96.1/5.3 cm/sec. Prox ECA 48/3.5 cm/sec. Rt. Vert. 28/6.6 cm/sec. Lt. Vert. 30.9/6.2 cm/sec. Right Extracranial There is heterogeneous, irregular atherosclerotic plaque noted in the right common carotid artery. There is heterogeneous, irregular atherosclerotic plaque noted in the right internal carotid artery. There is heterogeneous, irregular atherosclerotic plaque noted in the right external carotid artery. Antegrade flow is noted in the right vertebral artery. Left Extracranial There is heterogeneous, irregular atherosclerotic plaque noted in the left common carotid artery. There is heterogeneous, irregular atherosclerotic plaque noted in the left internal carotid artery. There is heterogeneous, irregular atherosclerotic plaque noted in the left external carotid artery. Antegrade flow is noted in the left vertebral artery. Procedure This is a Carotid Duplex examination using B-mode, color flow and specral Doppler. Carotid Duplex [id number]. Exam performed in department. VL/Carotid Duplex Ultrasound Interpretation Summary Mild (<50%) stenosis right extracranial internal carotid. Mild (<50%) stenosis left extracranial internal carotid. Patent and antegrade vertebrals bilaterally. Ordering Physician: Loy Narayan Referring Physician: Marian Davila Performed By: Chloe Hanson RVT
== END | disposition home or self-care (01) ==
PROVIDERS: PCP Internal Medicine; Referring Provider Student in an Organized Health Care Education/Training Program; Visit Provider Student in an Organized Health Care Education/Training Program
DX: R55 Syncope and collapse (principal)
CPT/HCPCS: 93880

== ENCOUNTER → 2025-09-27 | Outpatient (CLI) | payer MEDICARE, OTHER, SELFPAY ==
--- OUTSIDE RECORDS SUMMARY | 2025-09-27 08:01 | XMS RPT_ITS | CCD ---
Author Organization [facility] Care Team Providers Care Artist Suspect Name Role Phone Suha DRAKE, Maricel Roblero Unavailable Unavailable Carrie Josue Unavailable Carrie Josue Unavailable Carrie Josue Unavailable Ulices Taveras Primary Care Provider Ulices Taveras Primary Care Provider UnavailUlices Wylie Referring Provider Unavailable Roof HEALTH SCIENCES MANAGER, HEALTH SCIENCES MANAGER-C Joseph Tomlinson Attending Provider Roof HEALTH SCIENCES MANAGER, HEALTH SCIENCES MANAGER-C Joseph Tomlinson Other Provider Dr. Baldev Freed [...] Consulting Unavailable PROVIDER, UNKNOWN Consulting Unavailable Roof MUSIC DEPARTMENT CHAIR.COLLAR BAND CREASER, Joseph H Unavailable [phone] Shannan DIAZ, Tian F Unavailable Kem Davila MD Primary Care Provider [phone] KEM DAVILA Primary Care Unavailable EMELI HOLLINS Attending Unavailable KEM DAVILA Primary Care Unavailable EMELI HOLLINS Attending Unavailable Lola DIAZ, Dr. Fonseca Primary Care Provider [phone] Lola DIAZ, Dr. Fonseca Referring Provider Nikolay HEALTH SCIENCES MANAGER-CJoseph Attending Provider [phone] Scot PATE, Dr. Tyler Emergency Provider Scot PATE, Dr. Tyler Attending Provider Nikolay HEALTH SCIENCES MANAGER-CJoseph Referring Provider [phone] Dr. Baldev Freed MD Attending Provider [phone] Dr. Gary Stern MD Attending Provider Loy Centeno Attending Provider [phone] Loy Centeno Referring Provider [phone] Dr. London Estrada MD Attending Provider [phone] Dr. Kme Davila MD Primary Care Physician [phone] Nikolay CASTANEDA-Joseph Ryan Attending Physician [phone] Scot PATE, Dr. Tlyer Attending Physician Scot PATE, [facility] Abdiaziz DIAZ, Dr. De Paz Attending Physician Dr. Gary Stern MD Attending Physician [phone] Loy Centeno Attending Physician [phone] Dr. London Estrada MD Attending Physician Lola DIAZ, Dr. Fonseca Attending Physician Roof HEALTH SCIENCES MANAGER, Joseph H Attending Unavailable Roof HEALTH SCIENCES MANAGER, Joseph H Referring Unavailable [place], Kem Primary Care Unavailable Roof HEALTH SCIENCES MANAGER, Joseph H Attending Unavailable Roof HEALTH SCIENCES MANAGER, Joseph H Referring Unavailable Lola, Kem Primary Care Unavailable Demiter, Loy Attending Unavailable Demiter, Loy Referring Unavailable Lola, Kem Primary Care Unavailable Jayson Ellison Attending Unavailabl e [place], Kem Primary Care Unavailable [place], Kem Primary Care Unavailable Demiter, Loy Referring Unavailable Demiter, Loy Attending Unavailable [place], Kem Primary Care Unavailable Baldev Freed Attending Unavailable Rasta Carney Attending Unavailable Roof HEALTH SCIENCES MANAGER, Joseph H Referring Unavailable Gary Stern Attending Unavailable [place], Kem Primary Care Unavailable [place], Kem Primary Care Unavailable Lola, Kem Referring Unavailable Charlie Ely Attending Unavailable Lola, Kem Primary Care Unavailable [place], Kem Referring Unavailable [place], Kem Attending Unavailable Lola, Kem Referring Unavailable Lola, Kem Attending Unavailable Lola, Kem Primary Care Unavailable Lola, Kem Referring Unavailable Roof HEALTH SCIENCES MANAGER, Joseph H Attending Unavailable [place], Kem Primary Care Unavailable Lola, Kem Referring Unavailable Roof HEALTH SCIENCES MANAGER, Joseph H Attending Unavailable Lola, Kem Primary Care Unavailable London Estrada Attending Unavailable Demiter, Loy Referring Unavailable Lola, Kem Primary Care Unavailable Roof HEALTH SCIENCES MANAGER, Joseph H Attending Unavailable Roof HEALTH SCIENCES MANAGER, Joseph H Referring Unavailable Lola, Kem Primary Care Unavailable Charlie Ely Attending Physician Medications Current Medications Medication Drug Class(es) Dates Sig (Normalized) Sig (Original) apixaban 5 mg oral tablet (2 sources) Factor Xa Inhibitor Start: 07-14-2025 take 1 tablet by mouth twice daily aspirin 81 mg chewable tablet (20 sources) Nonsteroidal Anti-inflammatory Drug Start: 03-07-2018 take 1 tablet by mouth once daily Start: 09-26-2017 End: 08-23-2018 take 1 tablet by mouth once daily Aspirin (Adult Aspirin Regimen) 81 mg tablet,delayed release (DR/EC) Discontinued 81 mg PO daily November 21, 2017 1:00am August 23, 2018 10:21am HEART Start: 01-04-2011 take 1 tablet by lesly th once daily ASPIRIN 81 MG TABS One tablet by mouth daily ASPIRIN [id number] Yeesakina Larry Comment on above: Take 1 tablet by lesly th once daily. biotin 5 mg oral capsule (12 sources) Start: 05-12-2025 take 1 capsule by mouth once daily BIOTIN ORAL Take by mouth once daily. [...] to monitor blood glucose Blood-Glucose Meter misc (18 sources) Start: 11-10-2022 Blood-Glucose Meter misc Active [...] daily to monitor blood glucose Calcium Carb-D3-Mag [id number]-Vt nc 333 mg-200 unit -133 mg-5 mg tablet (9 sources) Start: 05-12-2025 Start: 05-12-2025 Calcium Carb-D 3-Mag [id number]-Akpk 333 mg-200 unit -133 mg-5 mg tablet Active 1 {tbl} PO daily May 12, 2025 12:00am administer with a meal Complies with drug therapy Start: 05-12-2025 Calcium Carb-D 3-Mag [id number]-Lnwm 333 mg-200 unit -133 mg-5 mg tablet Active 1 {tbl} PO daily May 12, 2025 12:00am administer with a meal calcium/mag/vitamin D2/Zn/min (MERYL-MAG ZINC II ORAL) (3 sources) calcium/mag/enrique min D2/Zn/min (MERYL-MAG ZINC II ORAL) Take by mouth once daily. 0 Active Comment on above: Take by mouth once d aily. cyclobenzaprine hydrochloride 5 mg oral tablet (20 sources) Muscle Relaxant Start: End: take 1 tablet by mouth twice daily [...] by mouth. finasteride 5 mg oral tablet (20 sources) 5-alpha Reductase Inhibitor Start: 08-14-2024 End: 11-25-2024 take 1 tablet by mouth once daily Start: 12-04-2023 End: 06-03-2024 take 1 tablet by mouth once daily Finasteride (Proscar) 5 mg tablet Discontinued 5 mg PO DAILY 90 February 09, 2024 12:18pm June 03, 2024 2:10pm Lactobacillus Combination No .9 (Adult 50 Plus Probiotic) 4 billion cell capsule (9 sources) Start: 05-12-2025 take 4 capsules by m outh once daily Start: 05-12-2025 take 4 capsules by m outh once daily Lactobacillus Combination No.9 (Adult 50 Plus Probiotic) 4 billion cell capsule Active 4000 NMA PO daily May 12, 2025 12:00am administer with a meal Complies with drug therapy Start: 05-12-2025 take 4 capsules by m outh once daily Lactobacillus Combination No.9 (Adult 50 Plus Probiotic) 4 billion cell capsule Active 4000 NMA PO daily May 12, 2025 12:00am administer with a meal 24 hr mirabegron 25 mg extended release oral tablet (11 sources) beta3-Adrenergic Agonist Start: 07-14-2025 take 1 tablet b y mouth once daily Start: 11-26-2024 End: 05-12-2025 take 1 tablet by mouth once daily Mirabegron (Myrbetriq) 25 mg tablet extended release 24 hr Discontinued 25 mg PO daily 30 November 26, 2024 1:00am May 12, 2025 3:10pm mv-min/vit C/glut/lysine/hb124 (IMMUNE SUPPORT ORAL) (3 sources) mv-min/vit C/glut/lysine/hb124 (IMMUNE SUPPORT ORAL) Take by mouth once daily. 0 Active Comment on above: Take by mouth once d aily. predniSONE 20 mg oral tablet (2 sources) Start: End: take 2 tablets by mouth once daily predniSONE (DELTASONE) 20 mg tablet Take 2 tablets by mouth once daily for 7 days. 14 tablet 0 04/25/2022 05/02/2022 Active Comment on above: Take 2 tablets by mo [facility] once daily for 7 days. prevagen (9 sources) Start: 025 Start: 05-12-2025 prevagen Activ e 1 NMA PO daily May 12, 2025 12:00am Complies with drug therapy Start: 05-12-2025 prevagen Activ e 1 NMA PO daily May 12, 2025 12:00am tamsulosin hydrochloride 0.4 mg oral capsule (20 sources) alpha-Adrenergic Malcolm Start: 07-18-2024 End: 11-25-2024 take 1 capsule by mouth once daily Start: 10-22-2020 End: 06-03-2024 take 1 capsule [...] ed 0.8 MG PO TWICE A DAY September 19, 2019 12:00am October 22, 2020 11:04am Comment on above: Take 0.4 mg by mouth once daily. total beets (9 sources) Start: 05-12-2025 Start: 05-12-2025 total beets Ac tive 3 {tbl} PO daily May 12, 2025 12:00am Complies with drug therapy Start: 05-12-2025 total beets Ac tive 3 {tbl} PO daily May 12, 2025 12:00am Completed/Discontinued Medications Medication Drug Class(es) Dates Sig (Normalized) Sig (Original) 8 hr acetaminophen 650 mg extended release oral tablet (20 sources) Start: 10-25-2021 End: 02-08-2024 take 3 [...] sources) HMG-CoA Reductase Inhibitor Start: 12-20-2011 End: 06-28-2025 take 1 tablet by mouth at bedtime Atorvastatin (Lipitor) 80 mg tablet Discontinued 80 mg PO AT BEDTIME 90 December 12, 2023 4:09pm November 25, 2024 12:54pm CHOLESTEROL Start: 12-20-2011 take 1 tablet by lesly th once daily ATORVASTATIN CALCIUM 40 MG TABS One tablet by mouth daily ATORVASTATIN CALCIUM [id number] Baldev Freed MD Comment on above: Take by mouth. Take 1 tablet by lesly th once daily. TAKE 1 TABLET BY LESLY TH EVERY DAY azithromycin 250 mg oral tablet (11 sources) Macrolide Antimicrobial Start: 10-20-2023 End: 07-29-2024 azithromycin (ZITHROMAX) 250 mg tablet TAKE ONE [...] completed) Blood-Glucose Meter (Advanced Glucose Meter) misc (10 sources) Start: 11-03-2022 End: 11-10-2022 Blood-Glucose Meter [...] As directed ciprofloxacin 500 mg oral tablet (15 sources) Quinolone Antimicrobial Start: 09-19-2019 End: 10-22-2020 [...] One tablet by mouth daily ESOMEPRAZOLE MAGNESIUM [id number] Yee Larry Start: 05-18-2011 take 1 tablet by lesly th once daily NEXIUM 40 MG CPDR One tablet by mouth daily ESOMEPRAZOLE MAGNESIUM [id number] Yee Larry hydroCHLOROthiazide 12.5 mg / losartan [...] One tablet by mouth daily VALSARTAN-HYDROCHL OROTHIAZIDE [id number] Yee Larry Start: 01-04-2011 take 1 tablet by lesly once daily DIOVAN HCT 80-12.5 MG TABS One tablet by mouth daily VALSARTAN-HYDROCHLOROTHIAZIDE [id number] Yee Larry indomethacin 50 mg oral capsule (20 sources) [...] on above: TAKE 1 CAPSULE BY [facility] TWICE A DAY NEEDED 1 ml ketorolac tromethamine 30 mg/ml cartridge (1 source) Nonsteroidal Anti-inflammatory Drug, Cyclooxygenase Inhibitor Start: 2021 End: 2021 ketorolac (TORADOL) injection 15 mg losartan potassium 50 mg oral tablet (20 sources) Angiotensin 2 Receptor Malcolm Start: 2021 End: 2024 take 1 tablet by mouth once daily Losartan 50 mg tablet Discontinued 50 mg PO DAILY 90 1 July 18, 2024 3:39pm November 25, 2024 [...] hr Discontinued 25 mg PO daily 90 0 February 21, 2025 4:18pm June 03, 2025 3:08pm HEART/BP Start: 01-04-2011 End: 05-13-2024 take 1 tablet by mouth every twenty-four hours metoprolol succinate ER (TOPROL XL) 25 mg 24 hr tablet Take by mouth. 0 01/04/2011 05/13/2024 Discontinued (Duplicate Entry) Start: 01-04-2011 METOPROLOL TAR TRATE 25 MG TABS 1/2 tablet 2 X daily METOPROLOL TARTRATE [id number] Yee Larry Comment on above: Take by mouth. Take 1 tablet by lesly th once daily. TAKE 1 TABLET BY LESLY TH EVERY DAY morphine sulfate 15 mg extended release oral tablet (15 sources) Opioid Agonist Start: 03-07-2018 End: 08-23-2018 take 1 tablet by mouth twice daily Morphine 15 MG tablet Discontinued 15 mg PO TWICE A DAY 7 0 March 07, 2018 12:00am August 23, 2018 10:21am Acute postoperative pain of left knee Other acute postprocedural pain 24 hr niacin 1000 mg extended release oral tablet (20 sources) Nicotinic Acid Start: 05-18-2011 End: 04-24-2012 take 1 tablet by mouth once daily NIASPAN 1000 MG CR-TABS One tablet by mouth daily NIACIN (ANTIHYPERLIPIDEMIC) [id number] Baldev Freed MD Start: 05-18-2011 End: 04-24-2012 take 1 tablet by mouth once daily NIASPAN 1000 MG CR-TABS One tablet by mouth daily NIACIN (ANTIHYPERLIPIDEMIC) [id number] Baldev Freed MD Start: 01-04-2011 End: 04-24-2012 SLO-NIACIN 500 MG CR-TABS 2 tablets at bedtime ZELDA [id number] Baldev Freed MD Start: 01-04-2011 End: 04-24-2012 SLO-NIACIN 500 MG CR-TABS 2 tablets at bedtime ZELDA [id number] Baldev Freed MD nitroglycerin 0.4 mg sublingual [...] 5 min up to 3 X NITROGLYCERIN [id number] Yee Larry Comment on above: Nitroglycerin Active 0.4 MG SL every 5 to 15 minutes November 21, 2017 5:49pm omeprazole 40 mg delayed release oral capsule (20 sources) Proton Pump Inhibitor Start: 2 End: take 1 capsule by mouth at bedtime Omeprazole 40 mg capsule,delayed release(DR/EC) Discontinued 40 mg PO AT BEDTIME 90 0 March 11, 2025 12:57pm June 12, 2025 10:23am GERD Start: 01-04-2011 End: 04-24-2012 take 1 tablet by mouth once daily PRILOSEC OTC 20 MG TBEC One tablet by mouth daily OMEPRAZOLE MAGNESIUM [id number] Yee Larry Start: 01-04-2011 End: 04-24-2012 take 1 tablet by mouth once daily PRILOSEC OTC 20 MG TBEC One tablet by mouth daily OMEPRAZOLE MAGNESIUM [id number] Yee Larry Comment on above: Take 40 mg by mouth once daily. Take 1 capsule by [facility] once daily. oxyCODONE hydrochloride 5 mg oral tablet (15 sources) Opioid Agonist Start: 018 End: take 5-10 mg by mouth every [...] One tablet by mouth daily ROSUVASTATIN CALCIUM [id number] Yee Larry secretin human, synthetic 0.016 mg [...] tablet (8 sources) Phosphodiesterase 5 Inhibitor Start: End: take 1 tablet by mouth once daily VIAGRA 50 MG TABS One tablet by mouth daily SILDENAFIL CITRATE [id number] Yee Larry sour coelho allergenic extract (20 sources) Non-Standardized Food Allergenic Extract, Non-Standardized Plant [...] unspecified] Onset: 07-01-2019 03-07-2022 Chronic Cardiac dysrhythmias (4 sources) Paroxysmal atrial fibrillation; Translations: [Paroxysmal atrial fibrillation] 07-01-2025 Chronic Comment on above: Per Event Monitor 2024; Cardiac dysrhythmias (15 sources) Bradycardia; Translations: [Bradycardia, unspecified] Onset: 05-20-2025 05-20-2025 Episodic Chronic obstructive pulmonary disease and bronchiectasis (10 sources) Bronchitis; Translations: [Bronchitis, not specified as acute or chronic] 10-20-2023 Episodic Complication of device; implant or graft (8 sources) Atherosclerosis of coronary artery bypass graft(s) without angina pectoris; Translations: [Atherosclerosis of coronary artery bypass graft(s) without angina pectoris] Onset: 01-04-2011 01-04-2011 Chronic Coronary atherosclerosis and other heart disease (20 sources) Coronary atherosclerosis; Translations: [Coronary arteriosclerosis] Onset: 09-09-2006 01-04-2011 Chronic Comment on above: BOH-KYP-Snye LAD w/ 4.0 x 12 mm Liberte [...] Translations: [Essential hypertension] Onset: 01-04-2011 01-04-2011 Chronic Genitourinary symptoms and ill-defined conditions (20 sources) Increased frequency of urination; Translations: [Frequency of micturition] Onset: 09-26-2017 03-07-2022 Episodic Gout and other crystal arthropathies (20 sources) Gout; Translations: [Gout, unspecified] Onset: 09-26-2017 03-07-2022 Chronic Hyperplasia of prostate (11 sources) Benign prostatic hyperplasia; Translations: [Benign prostatic hyperplasia without lower urinary tract symptoms] Onset: 11-25-2024 11-03-2022 Chronic Immunizations and screening for infectious disease (4 sources) Encounter for immunization; Translations: [Need for prophylactic vaccination and inoculation against unspecified single disease] Onset: 07-14-2025 08-28-2023 Episodic Mood disorders (20 sources) Depressive disorder; Translations: [Depression] Onset: 09-26-2017 03-07-2022 Chronic Nausea and vomiting (15 sources) Vomiting; Translations: [Vomiting, unspecified] 12-27-2021 Episodic Osteoarthritis (1 source) Osteoarthritis of bilateral hip joints; Translations: [Bilateral primary osteoarthritis of hip] Chronic Other ear and sense organ disorders (1 source) Bilateral hearing loss; Translations: [Unspecified hearing loss, bilateral] Chronic Other ear and sense organ disorders (1 source) Impacted cerumen in left ear; Translations: [Impacted cerumen, left ear] Episodic Other gastrointestinal disorders (15 sources) Constipation; Translations: [Constipation, unspecified] 12-27-2021 Episodic Other gastrointestinal disorders (11 sources) Obstipation; Translations: [Constipation, unspecified] 06-29-2022 Episodic Other gastrointestinal disorders (2 sources) Functional diarrhea; 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] Episodic Other hereditary and degenerative nervous system conditions (3 sources) Impaired cognition; Translations: [Mild cognitive impairment, so stated] Chronic Other lower respiratory disease (13 sources) Dyspnea; Translations: [Shortness of breath] 11-03-2022 Episodic Other lower respiratory disease (3 sources) Shortness of breath; Translations: [Shortness of breath] Onset: 05-23-2025 Episodic Other lower respiratory disease (15 sources) Dyspnea on exertion; Translations: [Other forms of dyspnea] 05-19-2025 Episodic Other lower respiratory disease (1 source) Other forms of dyspnea; Translations: [Other forms of dyspnea] Onset: 06-18-2025 Episodic Other male genital disorders (20 sources) Male erectile dysfunction, unspecified; Translations: [Impotence of organic origin] Onset: 05-06-2019 03-07-2022 Chronic Other nervous system disorders (11 sources) Post-surgery back pain; Translations: [Other acute [...] Episodic Other nutritional; endocrine; and metabolic disorders (12 sources) Obesity; Translations: [Obesity, unspecified] 05-11-2022 Chronic Other screening for suspected conditions (not mental disorders or infectious disease) (20 sources) Thallium stress test abnormal; Translations: [Abnormal result of other cardiovascular function study] Onset: 05-06-2019 03-07-2022 Episodic Pancreatic disorders (not diabetes) (11 sources) Exocrine pancreatic insufficiency; Translations: [Exocrine pancreatic insufficiency] Episodic Residual codes; unclassified (12 sources) Memory impairment; Translations: [Other amnesia] 11-03-2022 Episodic Spondylosis; intervertebral disc disorders; other back problems (2 sources) Acute back pain with sciatica; Translations: [Lumbago with sciatica, right side] Episodic Syncope (16 sources) Syncope; Translations: [Syncope and collapse] Onset: 06-26-2025 Episodic Unclassified (4 sources) Body mass index [...] peptic ulcer disease] Onset: 09-26-2017 03-07-2022 Episodic Nonspecific chest pain (4 sources) Precordial pain; Translations: [Precordial pain] Onset: 01-04-2011 01-04-2011 Episodic Other aftercare (1 source) Long-term (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 of other medications; Translations: [Long-term (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 of other medications] Onset: 04-19-2012 04-19-2012 Episodic Other aftercare (9 sources) Patient encounter status; Translations: [correction (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 of insulin] Onset: 04-19-2012 03-07-2022 [...] Test Name Value Interpretation Reference Range Facility Office Visit Reporton 2024 Office Visit Report [facility] [address] [place] [address] OFFICE VISIT Date of Service: 07/25/25 MR#: [id number] Acct: [id number] Patient: RUSLAN STEPHENS Rep #: [id number] : 1950 Provider: NESHA De Souza Age/Sex: 74/M Location: [facility] Status: Signed Intake Vital Signs 07/14/25 14:00 Height 5 ft 10 in Weight: 238 lb BMI 34.1 BP 138/80 H Blood Pressure Location Lt brachial Position Sitting Respiration 16 Pulse 51 L Pulse Source Monitor Temp 97 F L Temp Source Temporal Pulse Oximetry (%) 99 Oxygen Delivery Method room air 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 Chief Complaint: 6 M FU Allergies No Known Allergies Allergy (Verified 07/14/25 13:53) Have you fallen in the past year?: No Office Procedures [facility] Billing Sheet Testing Pre-Employment Drug Screen: Yes Clinical Quality Measures Falls Risk Screening/Assistive Devices Have you fallen in the past year?: No 07/31/25 0804 Date Charlie Jasiel PA PA Cosigner Signature: Date (if applicable) CC: Normal [facility] Laboratory - Hematology and Cell countsOrdered By: Kem Davila on 07-14-2025 HbA1c (Bld) [Mass fraction] 6.7 % High 4.2-6.3 [facility] Internal Medicine Office Vis iton 07-10-2025 Internal Medicine Office Visit [facility] Internal Medicine [address] [place], [place] [address] OFFICE VISIT Date of Service: 07/14/25 MR#: [id number] Acct: [id number] Name: RUSLAN STEPHENS Rep #: [id number] : 1950 Provider: Dr. 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: No Accompanied by: Self Is patient in pain?: No Allergies No Known Allergies Allergy (Verified 07/14/25 13:53) Medications ???Medication ???Instructions ???Recorded ???Confirmed ???Type aspirin 81 mg chewable tablet 81 mg PO DAILY@0800 03/07/1807/14 Rx blood-glucose meter #1 ea 11/10/22 07/14/25 Rx blood sugar diagnostic (Blood #50 ea 12/12/23 07/14/25 Rx Glucose Test strips) lancets 31 gauge #100 ea 12/12/23 07/14/25 Rx nitroglycerin 0.4 mg sublingual 0.4 mg sublingual Q5-15M PRN 12/1207/14/25 Rx tablet Cardiac/Chest Pain #30 tabs lancets 28 gauge (Comfort EZ #100 ea 06/03/24 07/14/25 Rx Lancets) escitalopram oxalate 20 mg tablet 20 mg PO DAILY #90 tabs 11/25/24 07/14/25 Rx finasteride 5 mg tablet (Proscar) 5 mg PO DAILY #90 tabs 11/25/24 0 07/14/25 Rx Held on 07/14/25. Instructions: Order Changed losartan 50 mg tablet 50 mg PO DAILY #90 tabs 11/25/24 0 07/14/25 Rx tamsulosin 0.4 mg capsule 0.4 mg PO DAILY #90 caps 11/25/24 07/14/25 Rx Held on 07/14/25. Instructions: Order Changed biotin 5 mg capsule 5 mg PO QDAY 05/12/25 07/14/25 His tory calcium 333 mg-vit D3 200 1 tab PO QDAY 05/12/25 07/14/25 Hi story unit-magnesium 133 mg-zinc 5 mg tablet lactobacillus combination no.9 4 4,000 mmu cells PO QDAY 05/12/25 0 07/14/25 History billion cell capsule (Adult 50 Plus Probiotic) prevagen 1 cap PO QDAY 05/12/25 07/14/25 Hi story total beets 3 tab PO QDAY 05/12/25 07/14/25 Hi story metoprolol succinate 25 mg 25 mg PO QDAY HEART/BP #90 tabs 07/14/25 Rx tablet,extended release 24 hr omeprazole 40 mg capsule,delayed 40 mg PO QHS GERD #90 caps 5 07/14/25 Rx release atorvastatin 80 mg tablet (Lipitor) 80 mg PO QHS CHOLESTEROL #90 ta bs 06/28/25 07/14/25 Rx apixaban 5 mg tablet (Eliquis) 5 mg PO BID #60 tabs 07/14/2506/17 Rx mirabegron 25 mg tablet,extended 25 mg PO QDAY #30 tabs 07/14/25 Rx release 24 hr (Myrbetriq) Have you fallen in the past year?: No Nurse's Note: working 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 He has not done his routine blood work as previously ordered. He believes he is up to date on his screening. He is up to date on his immunizations. He doesn't smoke and does not need refills today. He reports he eats healthy sometimes. He reports he hasn't been very active. He reports his job is physical. He doesn't check his blood pressure at home. He is taking h (more content not included)... [facility] Duplex ultrasound of carotid artery reportOrdered By: London Estrada on 06-23-2025 Study [address] [facility] [place] [address] [place] [address] Carotid Duplex Ultrasound 06/20/25 0956 MR#: [id number] Acct: [id number] Name: RUSLAN STEPHENS Rep #:[id number] : 1950 74 From: London Cantu Attending Dr: NESHA Armas atus: REG CLI Ordering Dr: Loy Narayan Date: 06/20/25 Location: [facility] Sex: M C Admitted: Reason For Study Reason For Study: Syncope Rt. Velocities/BP Lt. Velocities/BP Prox CCA 61.7/9.7 cm/sec. Prox CCA 62.1/8.8 cm/sec. Mid CCA 61.7/10.7 cm/sec. Mid CCA 62.8/10.9 cm/sec. Dist CCA 57.9/13.5 cm/sec. Dist CCA 68.5/8.8 cm/sec. Prox ICA 50.9/10.2 cm/sec. Prox ICA 45.6/8.1 cm/sec. Mid ICA 44.7/12.6 cm/sec. Mid ICA 37.8/11.1 cm/sec. Dist ICA 56/12.6 cm/sec. Dist ICA 39.2/12.5 cm/sec. Rt. ICA/CCA = 0.91. Lt. ICA/CCA = 0.73. Prox ECA 96.1/5.3 cm/sec. Prox ECA 48/3.5 cm/sec. Rt. Vert. 28/6.6 cm/sec. Lt. Vert. 30.9/6.2 cm/sec. Right Extracranial There is heterogeneous, irregular atherosclerotic plaque noted in the right common carotid artery. There is heterogeneous, irregular atherosclerotic plaque noted in the right internal carotid artery. There is heterogeneous, irregular atherosclerotic plaque noted in the right external carotid artery. Antegrade flow is noted in the right vertebral artery. Left Extracranial There is heterogeneous, irregular atherosclerotic plaque noted in the left common carotid artery. There is heterogeneous, irregular atherosclerotic plaque noted in the left internal carotid artery. There is heterogeneous, irregular atherosclerotic plaque noted in the left external carotid artery. Antegrade flow is noted in the left vertebral artery. Procedure This is a Carotid Duplex examination using B-mode, color flow and specral Doppler. Carotid Duplex 96358. Exam performed in department. VL/Carotid Duplex Ultrasound Interpretation Summary Mild (<50%) stenosis right extracranial internal carotid. Mild (<50%) stenosis left extracranial internal carotid. Patent and antegrade vertebrals bilaterally. Ordering Physician: Loy Narayan Referring Physician: Kem Davila Performed By: Chloe Hanson RVShahnaz 06/23/25 1229 Date _ London Estrada MD CC: Dr. Kem Davila MD; NESHA Armas ~ Date Dictated: 06/20/25955 Date Transcribed: 06/23/25 122 Individual Pension Adviser: Signed [facility] Work Phone: Carotid Duplex Ultrasoundon 06-20-2025 Carotid Duplex Ultrasound [facility] Cardi[facility] Services [address] [place] [address] Carotid Duplex Ultrasound 06/20/25955 MR#: [id number] Acct: [id number] Name: RUSLAN STEPHENS Rep #: [id number] : 1950 74 From: London Estrada MD Attending Dr: NESHA Armas Status: REG CL I Ordering Dr: Loy Narayan Date: 06/20/25 Location: CVS Sex: M C Admitted: Reason For Study Reason For Study: Syncope Rt. Velocities/BP Lt. Velocities/BP Prox CCA 61.7/9.7 cm/sec. Prox CCA 62.1/8.8 cm/sec. Mid CCA 61.7/10.7 cm/sec. Mid CCA 62.8/10.9 cm/sec. Dist CCA 57.9/13.5 cm/sec. Dist CCA 68.5/8.8 cm/sec. Prox ICA 50.9/10.2 cm/sec. Prox ICA 45.6/8.1 cm/sec. Mid ICA 44.7/12.6 cm/sec. Mid ICA 37.8/11.1 cm/sec. Dist ICA 56/12.6 cm/sec. Dist ICA 39.2/12.5 cm/sec. Rt. ICA/CCA = 0.91. Lt. ICA/CCA = 0.73. Prox ECA 96.1/5.3 cm/sec. Prox ECA 48/3.5 cm/sec. Rt. Vert. 28/6.6 cm/sec. Lt. Vert. 30.9/6.2 cm/sec. Right Extracranial There is heterogeneous, irregular atherosclerotic plaque noted in the right common carotid artery. There is heterogeneous, irregular atherosclerotic plaque noted in the right internal carotid artery. There is heterogeneous, irregular atherosclerotic plaque noted in the right external carotid artery. Antegrade flow is noted in the right vertebral artery. Left Extracranial There is heterogeneous, irregular atherosclerotic plaque noted in the left common carotid artery. There is heterogeneous, irregular atherosclerotic plaque noted in the left internal carotid artery. There is heterogeneous, irregular atherosclerotic plaque noted in the left external carotid artery. Antegrade flow is noted in the left vertebral artery. Procedure This is a Carotid Duplex examination using B-mode, color flow and specral Doppler. Carotid Duplex 18537. Exam performed in department. VL/Carotid Duplex Ultrasound Interpretation Summary Mild (<50%) stenosis right extracranial internal carotid. Mild (<50%) stenosis left extracranial internal carotid. Patent and antegrade vertebrals bilaterally. Ordering Physician: Loy Narayan Referring Physician: Kem Davila Performed By: Chloe Hanson RVT 06/23/25 1229 Date London Estrada MD CC: Dr. Kem Davila MD; NESHA Armas Date Dictated: 06/20/25 0956 Date Transcribed: 06/23/25 1229 Individual Pension Adviser: Signed Normal [facility] Cardiovascular stress test r eportOrdered By: Baldev Freed on 05-21-2025 Study report [facility] [address] [place] [address] MR#: [id number] Acct: [id number] Name: RUSLAN STEPHENS Rep #: [id number] : 1950 74 From: Baldev Freed MD Primary Care: Dr. Kem Davila MD Stat us: REG CLI Referring Dr: Joseph Link NP HEALTH SCIENCES MANAGER-C Sex: M C Stress Test Report Pharmacologic myocardial perfusion stress test. 74-year-old man with a history of dyspnea on exertion Resting EKG demonstrates sinus bradycardia with a rate of 57 bpm. Resting bloodpressure is 138/96 mmHg. 0.4 mg of regadenoson was infused per usual protocol followed by rapid intravenous saline flush injection. Continuous EKG monitoringwas performed. The maximum heart rate was 88 bpm which was 59% of max impacted heart rate the maximum workload was 1 metabolic equivalent. At rest there were no ST or T wave changes noted to suggest ischemia and at peak infusion nonspecific ST changes were noted which did not meet the criteria for ischemia. No clinical angina is noted. The final blood pressure was 128/82 mmHg. Myocardial perfusion protocol. 15 mCi of technetium 99m sestamibi was injected at rest. 0.4 mg of regadenoson was infused per usual protocol. At peak infusion 45 mCi of technetium 99m sestamibi was injected stress images were obtained stress and rest images were reconstructed and compared in the short axis vertical long and horizontal long axis. Gated images were also obtained. Perfusion SPECT analysis: Review of the stress images demonstrate normal uptake of tracer noted in all areas of the myocardium. The resting images similar demonstrated normal uptake of tracer noted in all areas of the myocardium. No areas of reversibility are noted to suggest ischemia and no previous infarct is noted. Gated SPECT analysis: The gated ejection fraction is 58%. Conclusion: Normal pharmacologic myocardial perfusion stress test. Preserved ejection fraction. 05/21/251841 Date _ Baldev Freed MD CC: HEALTH SCIENCES MANAGER-C Joseph Link; Dr. Kem Davila MD ~ Date Dictated: 05/21/251839 Date Transcribed: 05/21/251839 Individual Pension Adviser: [place] Signed [facility] Work Phone: Echo Completeon 05-21-[address] [facility] Cardiovascular Services [address] [place] [address] Echo Complete 05/21/25839 MR#: [id number] Acct: [id number] Name: RUSLAN STEPHENS Rep #: [id number] : 1950 74 From: Baldev Freed MD Attending Dr: Joseph Link, HEALTH SCIENCES MANAGER-C Status: REG CLI Ordering Dr: Joseph Link NP HEALTH SCIENCES MANAGER-C Date: 05/21/25 Location: [facility] Sex: M C Admitted: Reason For Study : DYSPNEA Procedure This was a 2D Doppler, Color Flow transthoracic echocardiogram. Exam performed in department. Left Ventricle Normal LV size. Left ventricular systolic function is normal. The left ventricular ejection fraction is 65 %. No regional wall motion abnormalities noted. Right Ventricle Normal RV size. Normal systolic function. Atria Normal left atrium. Normal right atrium. Bubble contrast study is negative for PFO/ASD. Mitral Valve Mild focal mitral valve calcification of the anterior leaflet. Tricuspid Valve Normal tricuspid valve. Aortic Valve Trisinus/trileaflet aortic valve. Great Vessels Normal aortic root. The pulmonary artery is normal size. Inferior vena cava collapse with respiration. Pericardium/Pleural No pericardial effusion. Medication 22 gauge I.V. with prn adaptor inserted into right arm. Performed a rapid injection of agitated mix of 9 cc saline and 1cc air to assess for atrial septal defect. MMode/2D Measurements Calculations LVIDd: 5.5 cm IVSd: 1.00 cm LVOT diam: 2.3 cm LVIDs: 3.7 cm LVPWd: 1.00 cm LVOT area: 4.3 cm2 RVDd: 4.3 cm FS: 33.1 % asc Aorta Diam: 3.8 cm LAV(MOD-bp): 74.7 ml LVAd ap4: 32.9 cm2 LAV(MOD-bp) Indexed: 33.2 ml/m2 LVLd ap4: 8.9 cm LAV(MOD-sp2): 81.1 ml EDV(MOD-sp4): 99.4 ml LAV(MOD-sp4): 64.9 ml EDV(sp4-el): 103.3 ml LVAs ap4: 19.1 cm2 LVLs ap4: 7.9 cm ESV(MOD-sp4): 39.8 ml ESV(sp4-el): 39.0 ml EF(MOD-sp4): 60.0 % EF(sp4-el): 62.2 % LVAd ap2: 37.2 cm2 SV(MOD-sp4): 59.7 ml SV(MOD-sp2): 71.5 ml LVLd ap2: 9.2 cm SI(MOD-sp4): 26.5 ml/m2 SI(MOD-sp2): 31.8 ml/m2 EDV(MOD-sp2): 127.4 ml EDV(sp2-el): 127.1 ml LVAs ap2: 22.2 cm2 LVLs ap2: 8.0 cm ESV(MOD-sp2): 55.9 ml ESV(sp2-el): 52.6 ml EF(MOD-sp2): 56.1 % SV(sp4-el): 64.3 ml Ao sinus diam: 4.[address] Junction: 3.3 cm LA dimension(2D): 4.3 cm LA A4 area: 22.0 cm2 RA A4 area: 18.8 cm2 TAPSE: 2.4 cm Time Measurements MV dec time: 0.22 sec Doppler Measurements Calculations MV E max abelardo: 76.0 cm/sec Lat Peak E' Abelardo: 9.4 cm/sec Med Peak E' Abelardo: 9.7 cm/sec MV A max abelardo: 81.7 cm/sec E/E' lat: 8.1 E/E' med: 7.9 MV E/A: 0.93 MV dec slope: 345.1 cm/sec2 Ao V2 max: 160.9 cm/sec LV V1 max: 94.8 cm/sec Ao max P.4 mmHg LV V1 max P.6 mmHg Ao V2 mean: 113.2 cm/sec LV V1 mean P.0 mmHg Ao mean P.8 mmHg LV V1 mean: 66.8 cm/sec Ao V2 VTI: 38.8 cm LV V1 VTI: 22.1 cm AV (velocity ratio): 0.57 RITA(I,D): 2.5 cm2 RITA(V,D): 2.5 cm2 SV(LVOT): 95.1 ml PA V2 max: 85.4 cm/sec TR max abelardo: 226.2 cm/sec TR max P.5 mmHg ECHO/Echo Complete Interpretation Summary Normal LV size. Left ventricular systolic function is normal. The left ventricular ejection fraction is 65 %. Bubble contrast study is negative for PFO/ASD. Ordering Physician: Joseph Link Referring Physician: Joseph Link Performed By: Dinora Aceves RDCS 05/21/2542 Date Baldev Freed MD CC: HEALTH SCIENCES MANAGER-C Joseph Link; Dr. Kem Davila MD Date Dictated: 05/21/25839 Date Transcribed: 05/21/25939 Individual Pension Adviser: Signed Normal [facility] Echocardiogram study reportO rdered By: Baldev Freed on 05-21-[address] Study [address] [facility] Cardiovascular Services [address] [place] [address] Echo Complete 05/21/25839 MR#: [id number] Acct: [id number] Name: RUSALN STEPHENS Rep #:[id number] : 1950 74 From: Baldev Cantu Attending Dr: LAMAR Flanagan [facility] tus: REG CLI Ordering Dr: Joseph Link NP Date: 05/21/25 Location: [facility] Sex: M C Admitted: Reason For Study : DYSPNEA Procedure This was a 2D Doppler, Color Flow transthoracic echocardiogram. Exam performed in department. Left Ventricle Normal LV size. Left ventricular systolic function is normal. The left ventricular ejection fraction is 65 %. No regional wall motion abnormalities noted. Right Ventricle Normal RV size. Normal systolic function. Atria Normal left atrium. Normal right atrium. Bubble contrast study is negative for PFO/ASD. Mitral Valve Mild focal mitral valve calcification of the anterior leaflet. Tricuspid Valve Normal tricuspid valve. Aortic Valve Trisinus/trileaflet aortic valve. Great Vessels Normal aortic root. The pulmonary artery is normal size. Inferior vena cava collapse with respiration. Pericardium/Pleural No pericardial effusion. Medication 22 gauge I.V. with prn adaptor inserted into right arm. Performed a rapid injection of agitated mix of 9 cc saline and 1cc air to assess for atrial septal defect. MMode/2D Measurements & Calculations LVIDd: 5.5 cm IVSd: 1.00 cm LVOT diam: 2.3 cm LVIDs: 3.7 cm LVPWd: 1.00 cm LVOT area: 4.3 cm2 RVDd: 4.3 cm FS: 33.1 % asc Aorta Diam: 3.8 cm LAV(MOD-bp): 74.7 ml LVAd ap4: 32.9 cm2 LAV(MOD-bp) Indexed: 33.2 ml/m2 LVLd ap4: 8.9 cm LAV(MOD-sp2): 81.1 ml EDV(MOD-sp4): 99.4 ml LAV(MOD-sp4): 64.9 ml EDV(sp4-el): 103.3 ml LVAs ap4: 19.1 cm2 LVLs ap4: 7.9 cm ESV(MOD-sp4): 39.8 ml ESV(sp4-el): 39.0 ml EF(MOD-sp4): 60.0 % EF(sp4-el): 62.2 % LVAd ap2: 37.2 cm2 SV(MOD-sp4): 59.7 ml SV(MOD-sp2): 71.5 ml LVLd ap2: 9.2 cm SI(MOD-sp4): 26.5 ml/m2 SI(MOD-sp2): 31.8 ml/m2 EDV(MOD-sp2): 127.4 ml EDV(sp2-el): 127.1 ml LVAs ap2: 22.2 cm2 LVLs ap2: 8.0 cm ESV(MOD-sp2): 55.9 ml ESV(sp2-el): 52.6 ml EF(MOD-sp2): 56.1 % SV(sp4-el): 64.3 ml Ao sinus diam: 4.[address] Junction: 3.3 cm LA dimension(2D): 4.3 cm LA A4 area: 22.0 cm2 RA A4 area: 18.8 cm2 ___ TAPSE: 2.4 cm Time Measurements MV dec time: 0.22 sec Doppler Measurements & Calculations MV E max abelardo: 76.0 cm/sec Lat Peak E' Abelardo: 9.4 cm/sec Med Peak E' Abelardo: 9.7 cm/sec MV A max abelardo: 81.7 cm/sec E/E' lat: 8.1 E/E' med: 7.9 MV E/A: 0.93 MV dec slope: 345.1 cm/sec2 Ao V2 max: 160.9 cm/sec LV V1 max: 94.8 cm/sec Ao max P.4 mmHg LV V1 max P.6 mmHg Ao V2 mean: 113.2 cm/sec LV V1 mean P.0 mmHg Ao mean P.8 mmHg LV V1 mean: 66.8 cm/sec Ao V2 VTI: 38.8 cm LV V1 VTI: 22.1 cm AV (velocity ratio): 0.57 RITA(I,D): 2.5 cm2 RITA(V,D): 2.5 cm2 SV(LVOT): 95.1 ml PA V2 max: 85.4 cm/sec TR max abelardo: 226.2 cm/sec TR max P.5 mmHg ECHO/Echo Complete Interpretation Summary Normal LV size. Left ventricular systolic function is normal. The left ventricular ejection fraction is 65 %. Bubble contrast study is negative for PFO/ASD. Ordering Physician: Joseph Link Referring Physician: Joseph Link Performed By: Dinora Aceves RDCS 05/21/25 0942 Date _ Baldev Freed MD CC: HEALTH SCIENCES MANAGER-C Joseph Link; Dr. Kem Davila MD ~ Date Dictated: 05/21/25839 Date Transcribed: 05/21/25939 Individual Pension Adviser: Signed [facility] Work Phone: Stress Reporton 05-21-2025 Stress Report [facility] [address] [place] [address] MR#: [id number] Acct: [id number] Name: RUSLAN STEPHENS Rep #: [id number] : 1950 74 From: Baldev Freed MD Primary Care: Dr. Kem Davila MD Status: REG CLI Referring Dr: Joseph Link NP HEALTH SCIENCES MANAGER-C Sex: M C Stress Test Report Pharmacologic myocardial perfusion stress test. 74-year-old man with a history of dyspnea on exertion Resting EKG demonstrates sinus bradycardia with a rate of 57 bpm. Resting blood pressure is 138/96 mmHg. 0.4 mg of regadenoson was infused per usual protocol followed by rapid intravenous saline flush injection. Continuous EKG monitoring was performed. The maximum heart rate was 88 bpm which was 59% of max impacted heart rate the maximum workload was 1 metabolic equivalent. At rest there were no ST or T wave changes noted to suggest ischemia and at peak infusion nonspecific ST changes were noted which did not meet the criteria for ischemia. No clinical angina is noted. The final blood pressure was 128/82 mmHg. Myocardial perfusion protocol. 15 mCi of technetium 99m sestamibi was injected at rest. 0.4 mg of regadenoson was infused per usual protocol. At peak infusion 45 mCi of technetium 99m sestamibi was injected stress images were obtained stress and rest images were reconstructed and compared in the short axis vertical long and horizontal long axis. Gated images were also obtained. Perfusion SPECT analysis: Review of the stress images demonstrate normal uptake of tracer noted in all areas of the myocardium. The resting images similar demonstrated normal uptake of tracer noted in all areas of the myocardium. No areas of reversibility are noted to suggest ischemia and no previous infarct is noted. Gated SPECT analysis: The gated ejection fraction is 58%. Conclusion: Normal pharmacologic myocardial perfusion stress test. Preserved ejection fraction. 05/21/251841 Date Baldev Freed MD CC: LAMAR Link; Dr. Kem Davila MD Date Dictated: 05/21/251839 Date Transcribed: 05/21/251839 Individual Pension Adviser: [place] Signed Normal [facility] Cardiology Visit Reporton Cardiology Visit Report [facility] [place] [id number] [place] [address] OFFICE VISIT Date of Service: 05/20/25 MR#: [id number] Acct: [id number] Name: RUSLAN STPEHENS Rep #: [id number] : 1950 Provider: LAMAR melo Age/Sex: 74/M Location: [facility] Status: Signed HPI HPI History of Present Illness Details: RUSLAN STEPHENS, is a 74 M who presents to the office today for a follow-up visit.??? He is a gentleman with a history of coronary artery disease status post bare-metal stenting to the proximal left anterior descending artery in 2005 at [facility].??? He had been doing well until 2018 when he had a stress test which was mildly abnormal and his cardiac catheterization demonstrated 70% ostial first diagonal stenosis, mid LAD with 50% stenosis in the right coronary artery with 30% stenosis.??? His ejection fraction was noted to be normal.??? He was seen in the ER on 05/19/2025 for shortness of breath. His BNP and troponin was considered to be unremarkable. Twelve-lead ECG shows sinus bradycardia. No changes were made and it was recommended follow-up with primary care provider and cardiology. He denies chest, arm, jaw, or neck discomfort. He denies palpitations. He acknowledges mild, intermittent bilateral lower extremity edema. He acknowledges shortness of breath with activity such as going up an incline. He denies shortness of breath at rest, cough, orthopnea, or PND. He acknowledges lightheadedness and near syncope. He denies dizziness, syncope, or weakness. He denies fatigue. He acknowledges episode of shaking and feeling faint. 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 Required: No Accompanied by: Is patient in pain?: No Allergies No Known Allergies Allergy (Verified 05/20/25 10:31) Medications ???Medication ???Instructions ???Recorded ???Confirmed ???Type aspirin 81 mg chewable tablet 81 mg PO DAILY@0800 03/07/1805/20 Rx blood-glucose meter #1 ea 11/10/22 05/20/25 Rx blood sugar diagnostic (Blood #50 ea 12/12/23 05/20/25 Rx Glucose Test strips) lancets 31 gauge #100 ea 12/12/23 05/20/25 Rx nitroglycerin 0.4 mg sublingual 0.4 mg sublingual Q5-15M PRN 12/1205/20/25 Rx tablet Cardiac/Chest Pain #30 tabs lancets 28 gauge (Comfort EZ #100 ea 06/03/24 05/20/25 Rx Lancets) atorvastatin 80 mg tablet (Lipitor) 80 mg PO QHS CHOLESTEROL #90 ta bs 11/25/24 05/20/25 Rx escitalopram oxalate 20 mg tablet 20 mg PO DAILY #90 tabs 11/25/24 05/20/25 Rx finasteride 5 mg tablet (Proscar) 5 mg PO DAILY #90 tabs 11/25/24 0 05/20/25 Rx losartan 50 mg tablet 50 mg PO DAILY #90 tabs 11/25/24 0 05/20/25 Rx tamsulosin 0.4 mg capsule 0.4 mg PO DAILY #90 caps 11/25/24 05/20/25 Rx metoprolol succinate 25 mg 25 mg PO QDAY HEART/BP #90 tabs 05/20/25 Rx tablet,extended release 24 hr omeprazole 40 mg capsule,delayed 40 mg PO QHS GERD #90 caps 2 5 05/20/25 Rx release biotin 5 mg capsule 5 mg PO QDAY 05/12/25 05/20/25 His tory calcium 333 mg-vit D3 200 1 tab PO QDAY 05/12/25 05/20/25 Hi story unit-magnesium 133 mg-zinc 5 mg tablet lactobacillus combination no.9 4 4,000 mmu cells PO QDAY 05/12/25 0 05/20/25 History billion cell capsule (Adult 50 Plus Probiotic) prevagen 1 cap PO QDAY 05/12/25 05/20/25 Hi story total beets 3 tab PO QDAY 05/12/25 05/20/25 Hi story Ejection fraction %: 55 Have you fallen in the past year?: No PFSH Medical History (Reviewed 05/12/25 @ 15:33 by Joseph Link HEALTH SCIENCES MANAGER, HEALTH SCIENCES MANAGER-C) Gout Near syncope Urinary tract infection Obesity History of non-ST elevation myocardial infarction (NSTEMI) (09/09/06) Essential (primary) hypertension Hernia Hyperlipidemia Atherosclerotic heart disease of [place] coronary artery without angina pectoris Surgical History Cataract extraction status H/O wrist surgery History of back surgery History of herniorrhaphy History of knee replacement (2017) History of left heart catheterization (11/27/17) H/O knee surgery History of coronary artery stent placement (09/09/06) Family History (Reviewed 05/12/25 @ 15:33 by Joseph Link HEALTH SCIENCES MANAGER, HEALTH SCIENCES MANAGER-C) Father Myocardial infarction CAD (coronary artery disease) Mother Hx of CABG CAD (coronary artery disease) Brother Hypertension Brother Hypertension Social History household members: spouse current occupational status: employed 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 Normal [facility] 12 Lead EKGon 05-19-2025 12 Lead EKG [facility] Cardiovascular Services [address] [place] [address] 12 Lead EKG 05/19/25 0904 MR#: [id number] Acct: [id number] Name: RUSLAN STEPHENS Rep #: [id number] : 1950 74 From: Baldev Freed MD Attending Dr: Status: DEP ER Ordering Dr: Jayson Ellison DO Date: 5 Location: ED Sex: M C Admitted: Test Reason : SOB Blood Pressure : */* mmHG Vent. Rate : 57 BPM Atrial Rate : 57 BPM P-R Int : 208 ms QRS Dur : 86 ms QT Int : 406 ms P-R-T Axes : 56 30 48 degrees QTcB Int : 395 ms Sinus bradycardia Otherwise normal ECG Confirmed by ABDIAZIZ DIAZ, BALDEV ([id number]), purchasing expeditor ADAMARIS DEL RIO ([id number]) on 05/21/2025 6:51:00 AM Referred By: KAVITA Confirmed By: BALDEV FREED MD 05/21/2551 Date Baldev Freed MD CC: Dr. Kem Davila MD; Dr. Jayson Ellison DO Signed Normal [facility] Absolute lymphocyte countOrd ered By: Jayson Ellison on 05-19-2025 Lymphocytes Auto (Unsp spec) [#/Vol] 1.47 10*3/uL 0.83-4.51 [facility] Absolute neutrophil countOrd ered By: Jayson Ellison on 05-19-2025 Neutrophils (Bld) [#/Vol] 5.1 10*3/uL 2.0-7.7 [facility] Anion gap in Serum or Plasma Ordered By: Jayson Ellison on 05-19-2025 Anion gap [Moles/Vol] 12 mmol/L 5-15 [facility] Automated lymphocyte count a s percentage of total leukocytesOrdered By: Jayson Ellison on 05-19-2025 Lymphocytes/100 WBC Auto (Unsp spec) 19.0 % 19-41 [facility] BUN/creatinine ratioOrdered By: Jayson Ellison on 05-19-2025 Urea nitrogen/Creatinine [Mass ratio] 16.0 mg/mg 10-20 [facility] Basic Metabolic Profile (BMP )on 05-19-2025 BUN/CRE 16.0 RATIO Normal - [facility] Comment on above: Performed By: #### L 500.2500, L503.7505, L300.8000, L100.0100 #### [facility] Laboratory [address] [place], [address] Calcium [Mass/Vol] 8.8 mg/dL Normal 7.6-11.0 [facility] Comment on above: Performed By: #### L 500.2500, L503.7505, L300.8000, L100.0100 #### [facility] [address] [place], [address] Chloride [Moles/Vol] 106 mmol/L Normal 98-108 [facility] Comment on above: Performed By: #### L 500.2500, L503.7505, L300.8000, L100.0100 #### [facility] [address] [place], [address] CO2 [Moles/Vol] 22.8 mmol/L Normal 21.0-32.0 [facility] Comment on above: Performed By: #### L 500.2500, L503.7505, L300.8000, L100.0100 #### [facility] [address] [place], [address] Creatinine [Mass/Vol] 1.21 mg/dL High 0.70-1.20 [facility] Comment on above: Performed By: #### L 500.2500, L503.7505, L300.8000, L100.0100 #### [facility] [address] [place], [address] ECRCL 108.84 ml/min Normal 50-250 [facility] Comment on above: Performed By: #### L 500.2500, L503.7505, L300.8000, L100.0100 #### [facility] [address] [place], [address] GAP 12 Normal 5-15 [facility] Comment on above: Performed By: #### L 500.2500, L503.7505, L300.8000, L100.0100 #### [facility] [address] [place], [address] GFR/1.73 sq M.predicted among non-blacks MDRD (S/P/Bld) [Vol rate/Area] 64 mL/min/{1.73_m2} Normal >60 [facility] Comment on above: Result Comment: mL/m in/1.73m2 CKD-EPI Creatinine Equation (2020) Performed By: #### L 500.2500, L503.7505, L300.8000, L100.0100 #### [facility] [address] [place], [address] Glucose [Mass/Vol] 125 mg/dL High 70-99 [facility] Comment on above: Performed By: #### L 500.2500, L503.7505, L300.8000, L100.0100 #### [facility] [address] [place], [address] Potassium [Moles/Vol] 4.1 mmol/L Normal 3.3-5.1 [facility] Comment on above: Performed By: #### L 500.2500, L503.7505, L300.8000, L100.0100 #### [facility] [address] [place], [address] Sodium [Moles/Vol] 140 mmol/L Normal 133-145 [facility] Comment on above: Performed By: #### L 500.2500, L503.7505, L300.8000, L100.0100 #### [facility] [address] [place], [address] Urea nitrogen [Mass/Vol] 19 mg/dL Normal 4-19 [facility] Comment on above: Performed By: #### L 500.2500, L503.7505, L300.8000, L100.0100 #### [facility] [address] [place], [address] Basophil percentageOrdered B y: Jayson Ellison on 05-19-2025 Basophils/100 WBC (Bld) 0.5 % 0-1 [facility] Bilirubin Test strip Ql (U)O rdered By: Jayson Ellison on 05-19-2025 Bilirubin Ql (U) Negative Negative [facility] CBC W/Diff, Automatedon PLT EST ADEQUATE Normal ADEQ [facility] Comment on above: Performed By: #### L 500.2500, L503.7505, L300.8000, L100.0100 #### [facility] [address] [place], [address] Carbon dioxide, total [Moles /volume] in Central venous bloodOrdered By: Jayson Ellison on 05-19-2025 CO2 [Moles/Vol] 22.8 mmol/L 21.0-32.0 [facility] Chest PA and Lateralon 05-19 Chest PA and Lateral [facility] Imaging Services [address] [place] [address] Chest PA and Lateral MR#: [id number] Acct: [id number] Name: RUSLAN STEPHENS Rep #: [id number] : 1950 M 74 From: Tung jenkins MD PCP: Dr. Kem Davila MD Status: REG ER Study: Chest PA and Lateral Date of Exam: 05/19/25 Exam# [id number] Ordering Dr: Jayson Ellison DO PROCEDURE: CHEST [...] Lateral IMPRESSION: NO ACUTE FINDINGS. Reading Location: [facility] CC: Dr. Kem Davila MD; Dr. Jayson Ellison DO Individual Pension Adviser: Signed Normal [facility] Chloride assayOrdered By: Dylon Ellison on 05-19-2025 Chloride [Moles/Vol] 106 mmol/L 98-108 [facility] D-Dimer Quantitative (DVT/PE )on 05-19-2025 D-DIMER QUANT 0.68 FEU/ug/m Invalid Interpretation Code 0.27-0.49 [facility] Comment on above: Result Comment: D-Di allan ELEVATED (>0.49): Additional studies and clinical assessments are indicated to conclude diagnosis of: Deep Vein Thrombosis (DVT) or Pulmonary Embolism (PE) CRITICAL VALUE CALLED TO FLORI DRAKE (ER) 05/19/25 0944 Zane Davis. RESULTS READ BACK BY SAME. Performed By: #### L 500.2500, L503.7505, L300.8000, L100.0100 #### [facility] [address] [place], [address] Emergency Department Summary on 05-19-2025 Emergency Department Summary [facility] Medical Records Department [address] [place] [address] Emergency Department Summary 05/19/25 MR#: [id number] Acct: [id number] Name: RUSLAN STEPHENS Rep #: [id number] : 1950 74 From: Jayson Ellison DO [...] with walking up inclines. 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 but did not inform him [...] intact Psych: Cooperative, appropriate mood [facility] History (Reviewed 05/12/25 @ 15:33 by Joseph Link HEALTH SCIENCES MANAGER, HEALTH SCIENCES MANAGER-C) Gout Near syncope Urinary tract infection Obesity History of non-ST elevation myocardial infarction (NSTEMI) (09/09/06) Essential (primary) hypertension Hernia Hyperlipidemia Atherosclerotic heart disease of [place] coronary artery without angina pectoris Home Medications [...] (Reviewed 05/12/25 @ 15:33 by Joseph Link HEALTH SCIENCES MANAGER, HEALTH SCIENCES MANAGER-C) Father Myocardial infarction CAD (coronary artery disease) [...] employed c (more content not included)... Normal [facility] Eosinophil percentageOrdered By: Jaysonjudson Ellison on 05-19-2025 Eosinophils/100 WBC (Bld) 2.5 % 0-5 [facility] Erythrocyte distribution wid th ratioOrdered By: [facility] on 05-19-2025 Erythrocyte distribution width (RBC) [Ratio] 13.4 % 11.6-14.6 [facility] Erythrocyte distribution wid th standard deviationOrdered By: [facility] Campusthom Loving on 05-19-2025 Erythrocyte distribution width (RBC) [Ratio] 45.6 fl High 35.1-43.9 [facility] Glomerular filtration rate ( GFR) estimation/1.73 sq m using serum, plasma, or whole bOrdered By: Jaysonjudson Ellison on 05-19-2025 GFR/1.73 sq M.predicted among non-blacks MDRD (S/P/Bld) [Vol rate/Area] 64 mL/min/{1.73_m2} >60 [facility] Comment on above: mL/min/1.73m2 CKD-EP I Creatinine Equation (2020) Hematocrit Auto (Bld) [Volum e fraction]Ordered By: [facility] CampusJaden on 05-19-2025 Hematocrit (Bld) [Volume fraction] 39.8 % Low 40-54 [facility] Hemoglobin measurementOrdere d By: Jayson Ellison on 05-19-2025 Hemoglobin (Bld) [Mass/Vol] 13.0 g/dL 13.0-16.5 [facility] Immature granulocytes/100 WB C Auto (Bld)Ordered By: [facility] on 05-19-2025 Immature granulocytes/100 WBC (Bld) 0.100 % 0.0-0.9 [facility] Comment on above: IG% - Immature Granu locytes (promyelocytes, myelocytes and metamyelocytes) > 1% indicates that a LEFT SHIFT is Present. Ketones Test strip Ql (U)Ord ered By: Jayson Ellison on 05-19-2025 Ketones Ql (U) Negative Negative [facility] L501.4021on 05-19-2025 Trop T High Sen 20 ng/L Normal <=22 [facility] Comment on above: Performed By: #### L 501.4025 #### [facility] [address], [address] MCV (mean corpuscular volume ) determinationOrdered By: Jayson Ellison on 05-19-2025 MCV (RBC) [Entitic vol] 93.2 fL 80-94 [facility] Mean corpuscular hemoglobin (MCH) determinationOrdered By: Jayson Ellison on 05-19-2025 MCH (RBC) [Entitic mass] 30.4 pg 27.0-32.0 [facility] Mean corpuscular hemoglobin concentration (MCHC) determinationOrdered By: Jayson Ellison on 05-19-2025 MCHC (RBC) [Mass/Vol] 32.7 g/dL 32-36 [facility] Mean platelet volume determi nationOrdered By: Jayson Ellison on 05-19-2025 Platelet mean volume (Bld) [Entitic vol] 10.7 fL 6.2-12.0 [facility] Microscopic analysis of urin e for red blood cells (RBC)Ordered By: Jayson Ellison on 05-19-2025 Microscopic analysis of urine for red blood cells (RBC) 0 SEEN /hpf 0-5 [facility] Monocyte percentageOrdered B y: Jayson Ellison on 05-19-2025 Monocytes/100 WBC (Bld) 11.5 % High 0-10 [facility] Mucus LM Ql (Urine sed)Order ed By: Jayson Ellison on 05-19-2025 Mucus Ql (Urine sed) 0 SEEN /hpf [facility] Natriuretic peptide.B prohor ora N-Terminal [Mass/volume] in Serum or PlasmaOrdered By: Jayson Ellison on 05-19-2025 Natriuretic peptide.B prohormone N-Terminal [Mass/Vol] 226 pg/mL <900 [facility] Comment on above: Heart Failure Unlike ly: < 300 pg/mLHeart Failure Likely< 50 Years: > 450 pg/mL50-75 Years: > 900 pg/mL>75 Years: > 1800 pg/mL Neutrophil percentageOrdered By: Jayson Ellison on 05-19-2025 Neutrophils/100 WBC (Bld) 66.4 % 47-70 [facility] Nitrite Test strip Ql (U)Ord ered By: Jayson Ellison on 05-19-2025 Nitrite Ql (U) Negative Negative [facility] Nucleated red blood cell per centageOrdered By: Jayson Ellison on 05-19-2025 Nucleated RBC/100 WBC (Bld) [Ratio] 0 % 0-5 [facility] Platelet countOrdered By: Dylon Ellison on 05-19-2025 Platelets (Bld) [#/Vol] 220 10*3/uL 150-450 [facility] Platelet estimateOrdered By: Jayson Jaden on 05-19-2025 Platelets LM Ql (Bld) ADEQUATE ADEQ [facility] Potassium measurement (mass/ volume)Ordered By: Jayson Ellison on 05-19-2025 Potassium (Unsp spec) [Mass/Vol] 4.1 mmol/L 3.3-5.1 [facility] Pro- Brain NATRIURETIC PEPTI Jovani 05-19-2025 Natriuretic peptide B (Bld) [Mass/Vol] 226 pg/mL Normal <=900 [facility] Comment on above: Result Comment: Hear t Failure Unlikely: < 300 pg/mL Heart Failure Likely < 50 Years: > 450 pg/mL 50-75 Years: > 900 pg/mL >75 Years: > 1800 pg/mL Performed By: #### L 500.2500, L503.7505, L300.8000, L100.0100 #### [facility] [place], [place], [id number] Protein Test strip Ql (U)Ord ered By: Jayson Ellison on 05-19-2025 Protein Ql (U) 30 mg/dl High Negative [facility] RBC Auto (Bld) [#/Vol]Ordere d By: Jayson Ellison on 05-19-2025 RBC (Bld) [#/Vol] 4.27 10*6/uL Low 4.6-6.2 [facility] Serum creatinine measurement (mass/volume)Ordered By: Jayson Ellison on 05-19-2025 Creatinine [Mass/Vol] 1.21 mg/dL High 0.70-1.20 [facility] Serum glucose measurement (m ass/volume)Ordered By: Jayson Ellison on 05-19-2025 Glucose [Mass/Vol] 125 mg/dL High 70-99 [facility] Serum or plasma calcium caitlin urement (mass/volume)Ordered By: Jayson Loving on 05-19-2025 Calcium [Mass/Vol] 8.8 mg/dL 7.6-11.0 [facility] Serum or plasma urea nitroge n measurement (mass/volume)Ordered By: Jayson Ellison on 05-19-2025 Urea nitrogen [Mass/Vol] 19 mg/dL 4-19 [facility] Sodium levelOrdered By: Woody Ellison on 05-19-2025 Sodium [Moles/Vol] 140 mmol/L 133-145 [facility] Squamous epithelial cells de tection in urine sediment by light microscopyOrdered By: Jayson Ellison on 05-19-2025 Epithelial cells.squamous LM Ql (Urine sed) 0-5 SEEN /hpf 0-5 [facility] Troponin T HS 2 HRon 025 Trop T High Sen Normal <=22 [facility] Comment on above: Performed By: #### L 499.0042 #### [facility] [address] [place], [address] Troponin T.cardiac [Mass/vol ume] in Serum or Plasma by High sensitivity methodOrdered By: Jayson Ellison on 05-19-2025 Troponin T.cardiac High sensitivity method [Mass/Vol] 20 ng/L <22 [facility] Urinalysis, Completeon 05-19 EPI,SQUAMOUS 0-5 SEEN Normal 0-5 [facility] Comment on above: Order Comment: PALMA CTOR TO SPECIFY Performed By: #### L 400.0001 #### [facility] [address] [place], [address] WBC 0-5 SEEN Normal 0-5 [facility] Comment on above: Order Comment: PALMA CTOR TO SPECIFY Performed By: #### L 400.0001 #### [facility] [address] [place], [address] BACTERIA 0 SEEN Normal None Seen [facility] Comment on above: Order Comment: PALMA CTOR TO SPECIFY Performed By: #### L 400.0001 #### [facility] [address] [place], [address] Mucus Ql (Urine sed) 0 SEEN Normal [facility] Comment on above: Order Comment: PALMA CTOR TO SPECIFY Performed By: #### L 400.0001 #### [facility] [address] [place], [address] RBC 0 SEEN Normal 0-5 [facility] Comment on above: Order Comment: PALMA CTOR TO SPECIFY Performed By: #### L 400.0001 #### [facility] [address] [place], [address] Urine clarityOrdered By: Alvin Ellison on 05-19-2025 Clarity (U) Clear Clear [facility] Urine color determinationOrd ered By: Jayson Ellison on 05-19-2025 Color (U) Yellow Yellow [facility] Urine glucose detectionOrder ed By: Jayson Ellison on 05-19-2025 Glucose Ql (U) Normal mg/dl Normal [facility] Urine leukocyte esterase det ection by dipstickOrdered By: Jayson Ellison on 05-19-2025 Leukocyte esterase Test strip Ql (U) 25 /ul High Negative [facility] Urine pHOrdered By: Jayson Stanley on 05-19-2025 pH (U) 6.0 [pH] 5.0 - 8.0 [facility] Urine sediment bacteria coun t by microscopy (number/high power field)Ordered By: Jayson Ellison on 05-19-2025 Bacteria LM.HPF (Urine sed) [#/Area] 0 /[HPF] None Seen [facility] Urine specific gravity measu rementOrdered By: [facility] CampusJaden on 05-19-2025 Specific gravity (U) [Rel density] 1.020 1.002-1.030 [facility] Urine urobilinogen measureme ntOrdered By: Jaysonjudson Ellison on 05-19-2025 Urobilinogen Ql (U) Normal mg/dl Normal [facility] White blood cell (WBC) count Ordered By: Jayson Ellison on 05-19-2025 WBC (Bld) [#/Vol] 7.7 10*3/uL 4.4-11.0 [facility] White blood cell countOrdere d By: Jayson Ellison on 05-19-2025 White blood cell count 0-5 SEEN /hpf 0-5 [facility] Cardiology Visit Reporton Cardiology Visit Report [facility] [address] [place] [address]. [address] [place], [place] [address] OFFICE VISIT Date of Service: 05/12/25 MR#: [id number] Acct: [id number] Name: RUSLAN STEPHENS Rep #: [id number] : 1950 Provider: LAMAR melo Age/Sex: 74/M Location: [facility] Status: Signed HPI HPI History of Present Illness Details: RUSLAN STEPHENS, is a 74 M who presents to the office today for a follow-up visit.??? He is a gentleman with a history of coronary artery disease status post bare-metal stenting to the proximal left anterior descending artery in 2005 at [facility].??? 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 Accompanied by: Is patient in [...] (Reviewed 05/12/25 @ 15:33 by Joseph Link HEALTH SCIENCES MANAGER, HEALTH SCIENCES MANAGER-C) Gout Near syncope Urinary tract infection Obesity History of non-ST elevation myocardial infarction (NSTEMI) (09/09/06) Essential (primary) hypertension Hernia Hyperlipidemia Atherosclerotic heart disease of [place] coronary artery without angina pectoris Surgical History Cataract extraction status H/O wrist surgery History of back surgery History of herniorrhaphy History of knee replacement (2017) History of left heart catheterization (11/27/17) H/O knee surgery History of coronary artery stent placement (09/09/06) Family History (Reviewed 05/12/25 @ 15:33 by Joseph Link HEALTH SCIENCES MANAGER, HEALTH SCIENCES MANAGER-C) Father Myocardial infarction CAD (coronary artery disease) Mother Hx of CABG CAD (coronary artery disease) Brother Hypertension Brother Hypertension Social History household members: spouse current occupational status: employed 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 Normal [facility] Internal Medicine Office Vis iton 11-21-2024 Internal Medicine Office Visit [facility] [address] [place] [address] [place] [address] OFFICE VISIT Date of Service: 11/25/24 MR#: [id number] Acct: [id number] Name: RUSLAN STEPHENS Rep #: [id number] : 1950 Provider: Dr. 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 Normal [facility] CNOVon 05-13-2024 [facility] Office Visit (IMG[facility] ) RUSLAN STEPHENS ([id number]) 1950 M [facility] Date Time Provider Department 05/13/24 12:00 PM [facility] During your visit today, we recorded the [...] per tablet Take by mouth. secretin, Human, (BuddyBounce) 16 mcg solr For MRI PANCREAS FUNCTION [...] No rest (more content not included)... Normal [facility] CBC + DIFFon 11-16-2023 Baso # 0.00 x10EE3/UL Normal 0.00 - 0.10 [facility] Comment on above: Performed By: #### 2 35830 #### [facility],[address] [place] [address] Basophils/100 WBC (Bld) 0.7 % Normal 0.0 - 2.0 [facility] Comment on above: Performed By: #### 2 80359 #### [facility],[address] [place] [address] CBC + DIFF Normal [facility] Comment on above: Result Comment: CBC- COMPLETE BLOOD COUNT Performed By: #### 2 22552 #### [facility],[address] [place] [address] EO # 0.10 x10EE3/UL Normal 0.00 - 0.50 [facility] Comment on above: Performed By: #### 2 50015 #### [facility],[address] [place] [address] Eosinophils/100 WBC (Bld) 2.3 % Normal 0.0 - 7.0 [facility] Comment on above: Performed By: #### 2 16851 #### [facility],[address] [place] [address] Erythrocyte distribution width (RBC) [Ratio] 14.0 % Normal 12.0 - 15.6 [facility] Comment on above: Performed By: #### 2 02261 #### [facility],[address] [place] [address] Hematocrit (Bld) [Volume fraction] 42.2 % Normal 40.0 - 52.0 [facility] Comment on above: Performed By: #### 2 52220 #### [facility],[address] [place] [address] Hemoglobin (Bld) [Mass/Vol] 14.1 g/dL Normal 13.0 - 17.5 [facility] Comment on above: Performed By: #### 2 23623 #### [facility],[address] [place] [address] Lymph # 0.90 x10EE3/UL Normal 0.80 - 2.80 [facility] Comment on above: Performed By: #### 2 59429 #### [facility],[address] [place] [address] Lymphocytes/100 WBC (Bld) 15.9 % Low 20.0 - 45.0 [facility] Comment on above: Performed By: #### 2 65381 #### [facility],[address] [place], [place] [id number] MANUAL DIFF N/A Normal [facility] Comment on above: Performed By: #### 2 82032 #### [facility],[address] [place], [place] [address] MCH (RBC) [Entitic mass] 30 pg Normal 27 - 33 [facility] Comment on above: Performed By: #### 2 29817 #### [facility],[address] [place] [address] MCHC 34 X10 3 Normal 32 - 36 [facility] Comment on above: Performed By: #### 2 71852 #### [facility],[address] [place] [address] MCV (RBC) [Entitic vol] 91 fL Normal 81 - 98 J l [facility] Comment on above: Performed By: #### 2 56058 #### [facility],[address] [place] [address] [place] # 0.60 x10EE3/UL Normal 0.20 - 1.00 [facility] Comment on above: Performed By: #### 2 586[address] #### [place] [address] MONOS % 10.4 % High 0.0 - 10.0 [facility] Comment on above: Performed By: #### 2 17350 #### [place] [address] Morphology Daniel (Bld) [Interp] N/A Normal [facility] Comment on above: Result Comment: {CD] Performed By: #### 2 96043 #### [place] [address] Neut # 4.00 x10EE3/UL Normal 1.50 - 7.10 [facility] Comment on above: Performed By: #### 2 93381 #### [place] [address] Neutrophils/100 WBC (Bld) 70.7 % Normal 46.0 - 76.0 [facility] Comment on above: Performed By: #### 2 48863 #### [place] [id number] PLATELET 260 x10EE3/UL Normal 150 - 450 [facility] Comment on above: Performed By: #### 2 82723 #### [place] [address] Platelet mean volume (Bld) [Entitic vol] 9.0 fL Normal 6.4 - 10.5 [facility] Comment on above: Result Comment: AUTO MATED DIFFERENTIAL Performed By: #### 2 16803 #### [facility],[address] [place] [address]147 RBC 4.66 x 10EE6/UL Normal 4.50 - 6.00 [facility] Comment on above: Performed By: #### 2 90968 #### [facility],[address] [place] [address] WBC 5.7 x 10EE3/UL Normal 4.5 - 10.8 [facility] Comment on above: Performed By: #### 2 02214 #### [facility],[address] [place] [address]72 CMP with eGFRon 11-16-2023 AGE 73 years Normal [facility] Comment on above: Performed By: #### 2 11900 #### [facility],[address] [place] [address]165 Albumin [Mass/Vol] 3.7 g/dL Normal 3.4 - 5.0 [facility] Comment on above: Performed By: #### 2 43058 #### [facility],[address] [place] [address] Albumin/Globulin [Mass ratio] 1.0 {ratio} Normal 0.9 - 1.6 [facility] Comment on above: Performed By: #### 2 58585 #### [facility],[address] [place] [address] ALK PHOS 93 U/L Normal 46 - 116 [facility] Comment on above: Performed By: #### 2 30462 #### [facility],[address] [place] [address] 32464 ALT [Catalytic activity/Vol] 40 U/L Normal 16 - 63 [facility] Comment on above: Performed By: #### 2 29750 #### [facility],[address] [place] [address] Anion gap [Moles/Vol] 15 mmol/L Normal 10 - 20 [facility] Comment on above: Performed By: #### 2 94864 #### [facility],[address] [place] [address]3498 AST [Catalytic activity/Vol] 32 U/L Normal 15 - 37 [facility] Comment on above: Performed By: #### 2 61708 #### [facility],[address] [place] [address]49 B/C RATIO 23 ratio Normal 0 - 30 [facility] Comment on above: Performed By: #### 2 11353 #### [facility],[address] [place] [address]104 Bilirubin [Mass/Vol] 0.6 mg/dL Normal 0.2 - 1.0 [facility] Comment on above: Performed By: #### 2 97588 #### [facility],[address] [place] [address]36 Calcium [Mass/Vol] 9.1 mg/dL Normal 8.5 - 10.1 [facility] Comment on above: Performed By: #### 2 84466 #### [facility],[address] [place] [address]142 Chloride [Moles/Vol] 107 mmol/L Normal 98 - 107 [facility] Comment on above: Performed By: #### 2 73280 #### [facility],[address] [place] [address] 64845 CMP with eGFR Normal [facility] Comment on above: Result Comment: COMP REHENSIVE METABOLIC PANEL Performed By: #### 2 90247 #### [facility],[address] [place] [address]8317 CO2 [Moles/Vol] 26.2 mmol/L Normal 21.0 - 32.0 [facility] Comment on above: Performed By: #### 2 43249 #### [facility],[address] [place] [address]9612 Creatinine [Mass/Vol] 1.00 mg/dL Normal 0.70 - 1.30 [facility] Comment on above: Performed By: #### 2 74988 #### [facility],[address] [place] [address] GFR/1.73 sq M.predicted among non-blacks MDRD (S/P/Bld) [Vol rate/Area] mL/min/{1.73_m2} Normal 60 - 999 [facility] Comment on above: Performed By: #### 2 65554 #### [facility],[address] [place], [place] [id number] Result Comment: ACCO RDING TO THE NATIONAL KIDNEY DISEASE EDUCATION PROGRAM(NKDE), A NORMAL eGFR IS A VALUE GREATER THAN OR EQUAL TO 60 ML/MIN/1.73 SQ METERS. CHRONIC KIDNEY DISEASE: <60mL/MIN/1.73 SQ METERS KIDNEY FAILURE: <15mL/MIN/1.73 SQ METERS THIS TEST SHOULD ONLY BE USED FOR PATIENTS 18 YEARS OF AGE AND OLDER. Globulin (S) [Mass/Vol] 3.7 g/dL Normal 1.5 - 3.8 [facility] Comment on above: Performed By: #### 2 76869 #### [facility],[address] [place] [address] Glucose [Mass/Vol] 137 mg/dL High 74 - 106 [facility] Comment on above: Performed By: #### 2 51382 #### [facility],[address] [place] [address] Potassium [Moles/Vol] 4.6 mmol/L Normal 3.5 - 5.1 [facility] Comment on above: Performed By: #### 2 34118 #### [facility],[address] [place] [address] 98190 Protein [Mass/Vol] 7.4 g/dL Normal 6.4 - 8.2 [facility] Comment on above: Performed By: #### 2 19986 #### [facility],[address] [place] [address] 21349 Sodium [Moles/Vol] 144 mmol/L Normal 136 - 145 [facility] Comment on above: Performed By: #### 2 90690 #### [facility],[address] [place] [address] 91819 Urea nitrogen [Mass/Vol] 23 mg/dL High 7 - 18 [facility] Comment on above: Performed By: #### 2 42681 #### [facility],[address] [place] [address] 40174 HEMOGLOBIN A1C (POM)on 11-16 Glucose [Mass/Vol] 142.7 mg/dL High 0.0 - 0.0 [facility] Comment on above: Result Comment: Do HEMOGLOBIN A1C REFERENCE RANGESBLDo Suggested Diagnosis HbA1c(%) HbA1C (mmol/mol Diabetic >/=6.5 >/=48 Prediabetes 5.7 - 6.4 39 - 47 Normal <5.7 <39 Performed By: #### 2 [id number] #### [facility],[address] [place] [address] 65979 HbA1c (Bld) [Mass fraction] 6.6 % High 0.0 - 6.5 [facility] Comment on above: Performed By: #### 2 [id number] #### [facility],[address] [place] [address]33 LIPID PROFILEon 11-16-2023 Cholesterol [Mass/Vol] 122 mg/dL Normal 0 - 240 [facility] Comment on above: Performed By: #### 2 [id number] #### [facility],[address] [place] [address] 42227 Cholesterol in HDL [Mass/Vol] 43 mg/dL Normal 40 - 60 [facility] Comment on above: Performed By: #### 2 [id number] #### [facility],[address] [place] [address] 43535 Cholesterol in LDL [Mass/Vol] 68 mg/dL Normal 0 - 129 [facility] Comment on above: Performed By: #### 2 96330 #### [facility],[address] [place] [address] 08366 Cholesterol.total/Choles terol in HDL [Mass ratio] 2.8 {ratio} Normal 0.0 - 5.0 [facility] Comment on above: Performed By: #### 2 [id number] #### [facility],[address] [place] [address] 86012 Lipid 1996 panel Normal [facility] Comment on above: Result Comment: LIPI D PROFILE Performed By: #### 2 [id number] #### [facility],[address] [place] [address] 04099 Triglyceride [Mass/Vol] 57 mg/dL Normal 0 - [address] [facility] Comment on above: Performed By: #### 2 [id number] #### [facility],[address] [place] [address] 19733 CNOVon 11-13-2023 CNOV Office Visit ([facility] ) RUSLAN STEPHENS ([id number]) 1950 [facility] Date Time Provider Department 11/13/23 11:30 AM EMELI HOLLINS [facility] During your visit today, we recorded the [...] as appropriate. Please see relevant sections in [facility] EHR for details Current Medications [...] BMI 3 (more content not included)... Normal [facility] Absolute lymphocyte countOrd ered By: Jeaneth Guillaume on 10-20-2023 Lymphocytes Auto (Unsp spec) [#/Vol] 1.16 10*3/uL 0.83-4.51 [facility] Basophil percentageOrdered B y: Jeaneth Guillaume on 10-20-2023 Basophils/100 WBC (Bld) 0.6 % 0-1 [facility] Chloride [Moles/Vol] 108 mmol/L 98-107 [facility] Eosinophils/100 WBC (Bld) 1.5 % 0-5 [facility] Glucose [Mass/Vol] 164 mg/dL 74-106 [facility] Comment on above: Fasting Glucose resu lt greater than or equal to 126 mg/dL suggests DIABETES MELLITUS per A.D.A. criteria. Neutrophils (Bld) [#/Vol] 6.1 10*3/uL 2.0-7.7 [facility] Neutrophils/100 WBC (Bld) 74.4 % 47-70 [facility] Potassium [Moles/Vol] 4.0 mmol/L 3.5-5.1 [facility] Sodium [Moles/Vol] 139 mmol/L 136-145 [facility] WBC (Bld) [#/Vol] 8.3 10*3/uL 4.4-11.0 [facility] Blood erythrocytes count (nu mber/volume)Ordered By: Jeaneth Guillaume on 10-20-2023 RBC (Bld) [#/Vol] 4.64 10*6/uL 4.6-6.2 [facility] Blood hemoglobin measurement (mass/volume)Ordered By: Jeaneth Guillaume on 10-20-2023 Hemoglobin (Bld) [Mass/Vol] 13.7 g/dL 13.0-16.5 [facility] Blood lymphocytes/100 leukoc ytesOrdered By: Jeaneth Guillaume on 10-20-2023 Lymphocytes/100 WBC (Bld) 14.0 % 19-41 [facility] Blood monocytes/100 leukocyt esOrdered By: Jeaneth Guillaume on 10-20-2023 Monocytes/100 WBC (Bld) 9.3 % 0-10 [facility] Blood platelet mean volumeOr dered By: Jeaneth Guillaume on 10-20-2023 Platelet mean volume (Bld) [Entitic vol] 10.0 fL 6.2-12.0 [facility] Determination of erythrocyte mean corpuscular volume (MCV)Ordered By: Jeaneth Guillaume on 10-20-2023 MCV (RBC) [Entitic vol] 90.9 fL 80-94 [facility] Hematocrit Auto (Bld) [Volum e fraction]Ordered By: Jeaneth Guillaume on 10-20-2023 Hematocrit (Bld) [Volume fraction] 42.2 % 40-54 [facility] Laboratory - Chemistry and C hemistry - challengeOrdered By: Jeaneth Guillaume on 10-20-2023 CO2 [Moles/Vol] 25.0 mmol/L 21.0-32.0 [facility] Urea nitrogen/Creatinine [Mass ratio] 13.4 mg/mg 10-20 [facility] Laboratory - Hematology and Cell countsOrdered By: Jeaneth Guillaume on 10-20-2023 Erythrocyte distribution width (RBC) [Entitic vol] 42.6 fL 35.1-43.9 [facility] Erythrocyte distribution width (RBC) [Ratio] 13.0 % 11.6-14.6 [facility] Immature granulocytes/100 WBC (Bld) 0.200 % 0.0-0.9 [facility] Comment on above: IG% - Immature Granu locytes (promyelocytes, myelocytes and metamyelocytes) > 1% indicates that a LEFT SHIFT is Present. MCH (RBC) [Entitic mass] 29.5 pg 27.0-32.0 [facility] Nucleated RBC/100 WBC (Bld) [Ratio] 0 % 0-5 [facility] Laboratory - Microbiology an d Antimicrobial susceptibilityOrdered By: Jeaneth Guillaume on 10-20-2023 SARS-CoV-2 (COVID-19) RNA ARACELI+probe Ql (Unsp spec) [facility] Auto (RBC) [Mass/Vol]Or dered By: Jeaneth Guillaume on 10-20-2023 MCHC (RBC) [Mass/Vol] 32.5 g/dL 32-36 [facility] No Panel InformationOrdered By: Jeaneth Guillaume on 10-20-2023 Estimated Creatinine Clearance Calc 61.52 ml/min [facility] Estimated GFR (MDRD) Amer 78 mL/min >60 [facility] Comment on above: GFR Calc Estimated GFR (MDRD) Non-Af Amer 64 mL/min >60 [facility] Comment on above: Non- GFR Calc Platelets bldOrdered By: Farida Guillaume on 10-20-2023 Platelets (Bld) [#/Vol] 272 10*3/uL 150-450 [facility] Serum or plasma calcium caitlin urement (mass/volume)Ordered By: Jeaneth Guillaume on 10-20-2023 Calcium [Mass/Vol] 9.0 mg/dL 8.5-10.1 [facility] Serum or plasma creatinine m easurement (mass/volume)Ordered By: Jeaneth Guillaume on 10-20-2023 Creatinine [Mass/Vol] 1.19 mg/dL 0.70-1.30 [facility] Comment on above: The validity of the calculated GFR & GFRAA in patients over 70 years has not been determined. Clinical correlation is essential. Serum or plasma urea nitroge n measurement (mass/volume)Ordered By: Jeaneth Guillaume on 10-20-2023 Urea nitrogen [Mass/Vol] 16 mg/dL 7-18 [facility] Thin prep Papanicolaou smear with manual screeningOrdered By: Jeaneth Guillaume on 10-20-2023 Thin prep Papanicolaou smear with manual screening 6 5-15 [facility] No Panel Informationon 11-08 [facility] CNOVon 06-06-2022 CNOV Office Visit ([facility] ) RUSLAN STEPHENS ([id number]) 1950 M [facility] Date Time Provider Department 06/06/22 10:00 AM ULICES TAVERAS During your visit today, we recorded the following information about you: Temperature Pulse Respiration Blood pressure 97.1 degrees 56/minute 14/minute 148/80 Weight Height 104 kg 1.803 m Ulices Taveras MD 06/06/2022 11:18 AM Signed This note was created using Shangbyriter. Subjective Ruslan Stephens is a 71 year [...] AM Signed This note was created using Shangbyriter. Subjective Ruslan Stephens is a 71 year [...] 40 mg capsule (more content not included)... [facility] CNOVon 05-09-2022 [facility] Office Visit (LIZETTES ) RUSLAN STEPHENS ([id number]) 1950 [facility] Date Time Provider Department 05/09/22 11:10 [...] 16 mcg solr (more content not included)... [facility] Cheikh 04-28-2022 MOHIT Telephone (OLESYA) RUSLAN STEPHENS ([id number]) 1950 M [facility] Date Time Provider Department 04/28/22 ULICES TAVERAS [...] [facility]) [[id number]] Order #: [id number]: [id number] Prescriptions as of 04/28/2022 - cyclobenzaprine [...] Encounter Status:Closed by ULICES TAVERAS on 04/28/22 [facility] CNOVnagi 04-25-2022 CNOV Office Visit ([facility] ) RUSLAN STEPHENS ([id number]) 1950 [place] Date Time Provider Department 04/25/22 4:40 PM ULICES TAVERAS During your visit today, we recorded the following information about you: Temperature Pulse Respiration Blood pressure 97.7 degrees 77/minute 14/minute 138/82 Weight Height 103.5 kg 1.791 m Kaila ChauhanTETO lazar 04/25/2022 5:00 PM Signed Pt had went to [facility] and had an xray that didn't show anything. Pt was prescriped medrol pk onThursday prescribed flexaril 5 mg tab Pt still has complaints of 5/10 pain Ulices Taveras MD 04/25/2022 6:00 PM Signed This note was created using Shangbyriter. Subjective Ruslan Stephens is a 71 year [...] 14 tabletRfl: 0 CONSULT TO PHYSICAL THERAPY [9032] Order #: [id number]: 1 FUTURE Prescriptions as of 04/25/2022 - [...] Hypertension [I10] 09/26/20 (more content not included)... [facility] CR Hip w/ Pelvis 2 or 3 View s Righton 04-23-2022 CR Hip w/ Pelvis 2 or 3 Views Right Patient Name: RUSLAN STEPHENS Diagnostic Radiology ACCESSION EXAM DATE/TIME PROCEDURE ORDERING PROVIDER [id number] 04/23/2022 13:11 EDT CR Hip w/ Pelvis 2 or 3 [id number] -PEDRO LUIS DIGGS Views Right n CPT code 04744 Reason For Exam (CR Hip w/ Pelvis [...] Transcribed Date and Time: 04/23/2022 1:25 Normal [facility] ED Provider Noteon ED Provider Note Emergency Department Encounter [facility] EMERGENCY DEPT Patient: Ruslan Stephens : 1950 [...] history of arthritis in that hip per [facility] plan to discharge with anti-inflammatories and close [...] are mis-transcribed.) Alek Negron MD [employer] Alek Negron MD 04/23/22 1310 Normal [facility] ED Provider Note [facility] EMERGENCY DEPT EMERGENCY DEPARTMENT ENCOUNTER Pt Name: Ruslan Stephens Birthdate 1950 Date of evaluation: 04/23/2022 Provider: Pedro Luis Diggs MD CHIEF COMPLAINT Chief Complaint Patient presents with ? Hip Pain Right hip pain, reports he was at [facility] and had an xray a [...] pain. Patient reports that he follows with [facility] has been diagnosed with osteoarthritis after receiving a hip x-ray at that facility. He was given prednisone and was scheduled for follow-up appointment. Patient reports that the hip pain has been persistent, contacted [facility] back and recommended coming to the emergency [...] and Family: Not on file ? Attends [employer]: Not on file ? Active Member [...] the Last Year: Not on file SCREENINGS [place] Coma Scale Eye Opening: Spontaneous Best Verbal Response: Oriented Best Motor Response: Obeys commands [place] Coma Scale Score: 15 PHYSICAL EXAM (up [...] regular rhyth (more content not included)... Normal [facility] XR HIP RIGHT (2-3 VIEWS)on 0 04-23-2022 Patient Name: RUSLAN WOODS Diagnostic Radiology ACCESSION EXAM DATE/TIME PROCEDURE ORDERING PROVIDER [id number] 04/23/2022 13:11 EDT CR Hip w/ Pelvis 2 or 3 [id number] -DONTAE, PEDRO LUIS Views Right n CPT code 40366 Reason For Exam (CR Hip w/ Pelvis [...] R Transcribed Date and Time: 04/23/2022 1:25 [facility] Bjorn Jaffe MD - 04/23/2022 [id number] Radiology ACCESSION EXAM DATE/TIME PROCEDURE ORDERING PROVIDER [id number] 04/23/2022 13:11 EDT CR Hip w/ Pelvis 2 or 3 [id number] -DONTAE, PEDRO LUIS Views Right n CPT code 29316 Reason For Exam (CR Hip w/ Pelvis [...] R Transcribed Date and Time: 04/23/2022 1:25 [facility] Work [facility]: Radiology Study observation (narrative) [facility] Work Phone: XR HIP RIGHT (2-3 VIEWS)Orde red By: Bjorn Jaffe on 04-23-2022 [facility] Work Phone: No Panel Informationon 04-04 Endomysial IgA Antibody Negative Negative [facility] Work Phone: Serum IgA measurement (units /volume)on 04-04-2022 IgA Qn (S) 182 mg/dL 61-437 [facility] Work Phone: Comment on above: Performed at: [facility] [place] [id number] Director: Tian Goodson PhD, Phone: [phone] Serum or plasma C reactive p rotein measurement (mass/volume)on 04-04-2022 CRP [Mass/Vol] mg/L 0.0-3.0 [facility] Work Phone: Comment on above: C-Reactive Protein ( CRP) provides useful information for thediagnosis, therapy and monitoring of inflammatory processesand associated diseases. For the evaluation of Relative Riskfor Cardiovascular Disease, a High Sensitivity CRP (HSCRP)should be ordered. Serum tissue transglutaminas e IgA antibody assay (units/volume)on 04-04-2022 tTG IgA Qn (S) <2 U/mL 0-3 [facility] Work Phone: Comment on above: Negative 0 - 3 Weak Positive 4 - 10 Positive >10 Tissue Transglutaminase (tTG) has been identified as the endomysial antigen. Studies have demonstr- ated that endomysial IgA antibodies have over 99% specificity for gluten sensitive enteropathy. MRI PANCREAS FUNCTION WO/W I VCONon 02-09-2022 [facility] Hemoglobin A1con 10-19-2021 Glucose [Mass/Vol] 148 mg/dL Normal [facility] Comment on above: Performed By: #### H BA1C #### [facility] Routine Lab [address] [place], [place] [id number] HbA1c (Bld) [Mass fraction] 6.8 % High 4.3-5.6 [facility] Comment on above: Performed By: #### H BA1C #### [facility] Routine Lab [address] [place], [place] [address] Hemoglobin A1con 11-27-2020 Glucose [Mass/Vol] 143 mg/dL Normal [facility] Comment on above: Performed By: #### H BA1C #### [facility] Routine Lab [address], [place] [id number] HbA1c (Bld) [Mass fraction] 6.6 % High 4.3-5.6 [facility] Comment on above: Performed By: #### H BA1C #### [facility] Routine Lab [address], [place] [id number] Lab Report: Basic Metabolic Profile (BMP)on 11-22-2017 Anion gap 9 mmol/L Invalid Interpretation Code 5-15 [facility] [employer] Work Phone: [phone] BUN/Creatinine Ratio 28.0 RATIO High 10-20 [facility] [employer] Work Phone: [phone] Calcium 8.7 mg/dL Invalid Interpretation Code 8.5-10.1 [employer] Work Phone: [phone] Chloride 104 mmol/L Invalid Interpretation Code 98-107 [employer] Work Phone: [phone] CO2 26.0 mmol/L Invalid Interpretation Code 21.0-32.0 [employer] Work Phone: [phone] Creatinine 0.93 mg/dL Invalid Interpretation Code 0.70-1.30 [employer] Work Phone: [phone] eGFR (non-black) 105 mL/min/{1.73_m2} Invalid Interpretation Code >60 [facility] Work Phone: [phone] eGFR (non-black) 87 mL/min/{1.73_m2} Invalid Interpretation Code >60 [employer] Work Phone: [phone] Glucose 96 mg/dL Invalid Interpretation Code 74-106 [facility] Work Phone: [phone] Potassium 3.7 mmol/L Invalid Interpretation Code 3.5-5.1 [facility] Work Phone: [phone] Sodium 139 mmol/L Invalid Interpretation Code 136-145 [facility] Work Phone: [phone] Urea nitrogen 26 mg/dL High 7-18 [facility] Work Phone: [phone] Lab Report: CBC-Complete Blo od Cnt No Diffon 11-22-2017 Erythrocytes (RBC) 4.76 10*6/uL Invalid Interpretation Code 4.6-6.2 [facility] Work Phone: [phone] Hematocrit (HCT) 43.4 % Invalid Interpretation Code 40-54 [facility] Work Phone: [phone] Hemoglobin (HGB) 14.4 g/dL Invalid Interpretation Code 13.0-16.5 [facility] Work Phone: [phone] MCH 30.3 pg Invalid Interpretation Code 27.0-32.0 [facility] Work Phone: [phone] MCHC 33.2 G/GL Invalid Interpretation Code 32-36 [facility] Work Phone: [phone] MCV 91.2 fL Invalid Interpretation Code 80-94 [facility] Work Phone: [phone] Platelets 318 10*3/mm3 Invalid Interpretation Code 150-450 [facility] Work Phone: [phone] PMV by Marvin 10.0 fL Invalid Interpretation Code 6.2-12.0 [facility] Work Phone: [phone] RDW-CA 14.0 % Invalid Interpretation Code 11.6-14.6 [facility] Work Phone: [phone] red blood cell distribution width, size density 46.1 fL High 35.1-43.9 [facility] Work Phone: [phone] WBC (Leukocytes) 6.9 10*3/uL Invalid Interpretation Code 4.4-11.0 [facility] Work Phone: [phone] Lab Report: Prothrombin Time w/INRon 11-22-2017 Coagulation tissue factor induced in platelet poor plasma 13.7 s Invalid Interpretation Code 11.7-14.9 [facility] Work Phone: [phone] INR in blood by coagulation 1.1 {INR} Invalid Interpretation Code [facility] Work Phone: [phone] Office Visiton 08-02-2017 Dietary management education, guidance, and counseling (procedure) yes Invalid Interpretation Code [facility] Work Phone: [phone] Documentation of current medications (procedure) Done Invalid Interpretation Code [facility] Phone: [phone] Replaced Document: Brennon E CG Observationson 08-02-2017 EKG QRS axis 40 deg Invalid Interpretation Code [facility] Phone: [phone] electrocardiogram interpretation Sinus Rhythm WITHIN NORMAL LIMITS Invalid Interpretation Code [facility] Phone: [phone] GE use only - for [employer] import when terms are not otherwise specified 385 ms Invalid Interpretation Code [facility] Phone: [phone] Interpretation Sinus Rhythm WITHIN NORMAL LIMITS Invalid Interpretation Code [facility] Phone: [phone] P [place] 58 deg Invalid Interpretation Code [facility] Phone: [phone] P wave axis, electrocardiogram 58 deg Invalid Interpretation Code [facility] Work Phone: [phone] NM Interval 182 ms Invalid Interpretation Code [facility] Phone: [phone] NM interval, electrocardiogram 182 ms Invalid Interpretation Code [facility] Phone: [phone] Pulse (Heart Rate) 79 /min Invalid Interpretation Code [facility] Phone: [phone] QRS axis, electrocardiogram 40 deg Invalid Interpretation Code [facility] Phone: [phone] QRS Duration 85 ms Invalid Interpretation Code [facility] Work Phone: [phone] QRS duration, electrocardiogram 85 ms Invalid Interpretation Code [facility] Work Phone: [phone] QT Interval new path ms Invalid Interpretation Code [facility] Work Phone: [phone] QT interval, electrocardiogram new path ms Invalid Interpretation Code [facility] Work Phone: [phone] QTc Herbert 385 ms Invalid Interpretation Code [facility] Work Phone: [phone] T [place] 28 deg Invalid Interpretation Code [facility] Work Phone: [phone] T wave axis, electrocardiogram 28 deg Invalid Interpretation Code [facility] Work Phone: [phone] Clinical Lists Update: 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 02-16-2015 Hemoglobin A1c/Hemoglobin.total mass fraction (Bld) 6.1 % Invalid Interpretation Code [facility] Work Phone: [phone] Alanine aminotransferase (ALT) 37 U/L Invalid Interpretation Code [facility] Work Phone: [phone] Albumin 4.3 g/dL Invalid Interpretation Code [facility] Work Phone: [phone] Alkaline phosphatase (ALP) 54 U/L Invalid Interpretation Code [facility] Work Phone: [phone] Aspartate aminotransferase (AST) 25 U/L Invalid Interpretation Code [facility] Work Phone: [phone] Bilirubin (total) 0.5 mg/dL Invalid Interpretation Code [facility] Work Phone: [phone] BUN/Creatinine Ratio 18 mg/mg Invalid Interpretation Code [facility] Work Phone: [phone] Calcium 9.1 mg/dL Invalid Interpretation Code [facility] Work Phone: [phone] Chloride 107 mmol/L Invalid Interpretation Code [facility] Work Phone: [phone] Cholesterol 152 mg/dL Invalid Interpretation Code [facility] Work Phone: [phone] Cholesterol to HDL Ratio 4.2 {ratio} Invalid Interpretation Code [facility] Work Phone: [phone] CO2 31.0 mmol/L High [facility] Work Phone: [phone] Creatinine 1.0 mg/dL Invalid Interpretation Code [facility] Work Phone: [phone] Globulin 2.4 g/dL Invalid Interpretation Code [facility] Work Phone: [phone] Glucose mass conc 116 mg/dL High [facility] Work Phone: [phone] HDL Cholesterol 36 mg/dL Low [facility] Work Phone: [phone] LDL Cholesterol 95 mg/dL Invalid Interpretation Code [facility] Work Phone: [phone] Potassium molar conc 3.7 mmol/L Invalid Interpretation Code [facility] Work Phone: [phone] Protein 6.7 g/dL Invalid Interpretation Code [facility] Work Phone: [phone] Sodium 141 mmol/L Invalid Interpretation Code [facility] Work Phone: [phone] Triglyceride 104 mg/dL Invalid Interpretation Code [facility] Work Phone: [phone] Urea nitrogen 18 mg/dL Invalid Interpretation Code [facility] Work Phone: [phone] Erythrocyte distribution width Auto Ratio (RBC) 14.2 % Invalid Interpretation Code [facility] Work Phone: [phone] Erythrocytes (RBC) 4.81 10*6/uL Invalid Interpretation Code [facility] Work Phone: [phone] Hematocrit (HCT) 43.2 % Invalid Interpretation Code [facility] Work Phone: [phone] Hemoglobin mass conc (Bld) 14.5 g/dL Invalid Interpretation Code [facility] Work Phone: [phone] MCH 30 pg Invalid Interpretation Code [facility] Work Phone: [phone] MCHC mass conc (RBC) 34 g/dL Invalid Interpretation Code [facility] Work Phone: [phone] MCV 90 fL Invalid Interpretation Code [facility] Work Phone: [phone] Platelets 248 10*3/mm3 Invalid Interpretation Code [facility] Work Phone: [phone] PMV by Marvin 8.5 fL Invalid Interpretation Code [facility] Work Phone: [phone] WBC (Leukocytes) 7.0 10*3/uL Invalid Interpretation Code [facility] Work Phone: [phone]) Office Visit: [facility] 04-23-20 13 Documentation of current medications (procedure) Done Invalid Interpretation Code [facility] Work Phone: [phone] Replaced Document: Brennon Burt CG Observationson 04-23-2013 Pulse (Heart Rate) 397 ms Invalid Interpretation Code [facility] Work Phone: [phone] Lab Reporton 03-04-2013 Albumin/Globulin Ratio 2.0 {ratio} Invalid Interpretation Code [facility] Work Phone: [phone] Office Visiton 10-23-2012 Tobacco smoking status NHIS Tobacco smoking status NHIS Invalid Interpretation Code [facility] Work Phone: [phone] Tobacco use CPHS never smoker Invalid Interpretation Code [facility] Work Phone: [phone] Office Visiton 08-31-2011 cardiac risk group C Invalid Interpretation Code [employer] Work Phone: [phone] cholesterol, target level 200 mg/dL Invalid Interpretation Code [facility] Work Phone: [phone] General cardiovascular disease 10Y risk [#] [place].D'Agostino N/A Invalid Interpretation Code [facility] Work Phone: [phone] HDL cholesterol, serum, target level 40 mg/dL Invalid Interpretation Code [facility] Work Phone: [phone] LDL target level 100 mg/dL Invalid Interpretation Code [facility] Work Phone: [phone] triglyceride, target level 150 mg/dL Invalid Interpretation Code [facility] Work Phone: [phone] Vital Signs Date Time Vital Sign Value Performing Clinician Faci gualberto 07-14-2025 14:00-0400 Body height 177.[address] Kem Davila MD Work Phone: [facility] 07-14-2025 14:00-0400 Body mass index (BMI) [Ratio] 34.1 kg/m2 Dr. Kem Davila MD Work Phone: [facility] 07-14-2025 14:00-0400 Body temperature 97 [degF] Dr. Kem Davila MD Work Phone: [facility] 07-14-2025 14:00-0400 Body weight 107.[address] Kem Davila MD Work Phone: [facility] 07-14-2025 14:00-0400 Diastolic blood pressure 80 mm[Hg] Dr. Kem Davila MD Work Phone: [facility] 07-14-2025 14:00-0400 Heart rate 51 /min Dr. Kem Davila MD Work Phone: [facility] 07-14-2025 14:00-0400 Respiratory rate 16 /min Dr. Kem Davila MD Work Phone: [facility] 07-14-2025 14:00-0400 SaO2% (BldA) [Mass fraction] 99 % Dr. Kem Davila MD Work Phone: [facility] 07-14-2025 14:00-0400 Systolic blood pressure 138 mm[Hg] Dr. Kem Davila MD Work Phone: [facility] 05-20-2025 10:28-0400 Body height 177.[address] Kem Davila MD Work Phone: [facility] 05-20-2025 10:28-0400 Body mass index (BMI) [Ratio] 34.1 kg/m2 Dr. Kem Davila MD Work Phone: [facility] 05-20-2025 10:28-0400 Body weight 107.[address] Kem Davila MD Work Phone: [facility] 05-20-2025 10:28-0400 Diastolic blood pressure 78 mm[Hg] Dr. Kem Davila MD Work Phone: [facility] 05-20-2025 10:28-0400 Heart rate 49 /min Dr. Kem Davila MD Work Phone: [facility] 05-20-2025 10:28-0400 Respiratory rate 18 /min Dr. Kem Davila MD Work Phone: [facility] 05-20-2025 10:28-0400 Systolic blood pressure 136 mm[Hg] Dr. Kem Davila MD Work Phone: [facility] 05-19-2025 12:01-0400 Body temperature 98.1 [degF] Dr. Kem Davila MD Work Phone: [facility] 05-19-2025 12:01-0400 Diastolic blood pressure 79 mm[Hg] Dr. Kem Davila MD Work Phone: [facility] 05-19-2025 12:01-0400 Heart rate 81 /min Dr. Kem Davila MD Work Phone: [facility] 05-19-2025 12:01-0400 Respiratory rate 16 /min Dr. Kem Davila MD Work Phone: [facility] 05-19-2025 12:01-0400 SaO2% (BldA) [Mass fraction] 100 % Dr. Kem Davila MD Work Phone: [facility] 05-19-2025 12:01-0400 Systolic blood pressure 176 mm[Hg] Dr. Kem Davila MD Work Phone: [facility] 05-19-2025 08:55-0400 Body height 177.[address] Kem Davila MD Work Phone: [facility] 05-19-2025 08:55-0400 Body mass index (BMI) [Ratio] 75.6 kg/m2 Dr. Kem Davila MD Work Phone: [facility] 05-19-2025 08:55-0400 Body weight 239.[address] Kem Davila MD Work Phone: [facility] 05-12-2025 15:03-0400 Body height 180.[address] Kem Davila MD Work Phone: [facility] 05-12-2025 15:03-0400 Body mass index (BMI) [Ratio] 33.7 kg/m2 Dr. Kem Davila MD Work Phone: [facility] 05-12-2025 15:03-0400 Body weight 109.[address] Kem Davila MD Work Phone: [facility] 05-12-2025 15:03-0400 Diastolic blood pressure 75 mm[Hg] Dr. Kem Davila MD Work Phone: [facility] 05-12-2025 15:03-0400 Heart rate 67 /min Dr. Kem Davila MD Work Phone: [facility] 05-12-2025 15:03-0400 Respiratory rate 16 /min Dr. Kem Davila MD Work Phone: [facility] 05-12-2025 15:03-0400 SaO2% (BldA) [Mass fraction] 93 % Dr. Kem Davila MD Work Phone: [facility] 05-12-2025 15:03-0400 Systolic blood pressure 136 mm[Hg] Dr. Kem Davila MD Work Phone: [facility] 05-13-2024 11:46-0400 Body mass index (BMI) [Ratio] 32.72 kg/m2 Emeli Hollins MD Work Phone: [facility] 05-13-2024 11:46-0400 Body weight 106.4 kg Emeli Hollins MD Work Phone: [facility] 05-13-2024 11:46-0400 Diastolic blood pressure 86 mm[Hg] Emeli Hollins MD Work Phone: [facility] 05-13-2024 11:46-0400 Heart rate 56 /min Emeli Hollins MD Work Phone: [facility] 05-13-2024 11:46-0400 Systolic blood pressure 145 mm[Hg] Emeli Hollins MD Work Phone: [facility] 10-20-2023 14:11-0500 Diastolic blood pressure 69 mm[Hg] Dr. Kem Davila Work Phone: [facility] 10-20-2023 14:11-0500 Systolic blood pressure 125 mm[Hg] Dr. Kem Davila Work Phone: [facility] 10-20-2023 13:15-0500 Heart rate 92 /min Dr. Kem Davila Work Phone: [facility] 10-20-2023 13:15-0500 Respiratory rate 18 /min Dr. Kem Davila Work Phone: [facility] 10-20-2023 12:12-0500 Body height 180.[address] Kem Davila Work Phone: [facility] 10-20-2023 12:12-0500 Body mass index (BMI) [Ratio] 34.1 kg/m2 Dr. Kem Davila Work Phone: [facility] 10-20-2023 12:12-0500 Body temperature 99.8 [degF] Dr. Kem Davila Work Phone: [facility] 10-20-2023 12:12-0500 Body weight 110.[address] Kem Davila Work Phone: [facility] 10-20-2023 12:12-0500 SaO2% (BldA) [Mass fraction] 100 % Dr. Kem Davila Work Phone: [facility] 04-03-2023 10:57-0400 Body weight 107.68 kg Emeli Hollins MD Work Phone: [facility] 04-03-2023 10:57-0400 Diastolic blood pressure 76 mm[Hg] Emeli Hollins MD Work Phone: [facility] 04-03-2023 10:57-0400 Heart rate 81 /min Emeli Hollins MD Work Phone: [facility] 04-03-2023 10:57-0400 Systolic blood pressure 122 mm[Hg] Emeli Hollins MD Work Phone: [facility] 12-09-2022 08:54-0500 Body height 180.3 cm Jay Miranda MD Work Phone: [facility] 12-09-2022 08:54-0500 Body temperature 97.11 [degF] Jay Miranda MD Work Phone: [facility] 12-09-2022 08:54-0500 Body weight 106.59 kg Jay Miranda MD Work Phone: [facility] 12-09-2022 08:54-0500 Diastolic blood pressure 67 mm[Hg] Jay Miranda MD Work Phone: [facility] 12-09-2022 08:54-0500 Heart rate 68 /min Jay Miranda MD Work Phone: [facility] 12-09-2022 08:54-0500 Respiratory rate 14 /min Jay Miranda MD Work Phone: [facility] 12-09-2022 08:54-0500 SaO2% (BldA) [Mass fraction] 100 % Jay Miranda MD Work Phone: [facility] 12-09-2022 08:54-0500 Systolic blood pressure 136 mm[Hg] Jay Miranda MD Work Phone: [facility] 10-31-2022 09:50-0500 Body temperature 97.5 [degF] Emeli Hollins MD Work Phone: [facility] 10-31-2022 09:50-0500 Body weight 104.83 kg Emeli Hollins MD Work Phone: [facility] 10-31-2022 09:50-0500 Diastolic blood pressure 81 mm[Hg] Emeli Hollins MD Work Phone: [facility] 10-31-2022 09:50-0500 Heart rate 62 /min Emeli Hollins MD Work Phone: [facility] 10-31-2022 09:50-0500 Respiratory rate 18 /min Emeli Hollins MD Work Phone: [facility] 10-31-2022 09:50-0500 SaO2% (BldA) [Mass fraction] 100 % Emeli Hollins MD Work Phone: [facility] 10-31-2022 09:50-0500 Systolic blood pressure 135 mm[Hg] Emeli Hollins MD Work Phone: [facility] 07-20-2022 10:31-0400 Body height 180.3 cm Azam Oconnell MD Work Phone: [facility] 07-20-2022 10:31-0400 Body temperature 96.3 [degF] Azam Oconnell MD Work Phone: [facility] 07-20-2022 10:31-0400 Body weight 101.7 kg Azam Oconnell MD Work Phone: [facility] 07-20-2022 10:31-0400 Diastolic blood pressure 83 mm[Hg] Azam Oconnell MD Work Phone: [facility] 07-20-2022 10:31-0400 Heart rate 62 /min Azam Oconnell MD Work Phone: [facility] 07-20-2022 10:31-0400 SaO2% (BldA) [Mass fraction] 96 % Azam Oconnell MD Work Phone: [facility] 07-20-2022 10:31-0400 Systolic blood pressure 135 mm[Hg] Azam Oconnell MD Work Phone: [facility] 06-21-2022 14:12-0400 Diastolic blood pressure 60 mm[Hg] [facility] Work Phone: 06-21-2022 14:12-0400 Heart rate 75 /min [facility] Work Phone: 06-21-2022 14:12-0400 Respiratory rate 18 /min [facility] Work Phone: 06-21-2022 14:12-0400 SaO2% (BldA) [Mass fraction] 97 % [facility] Work Phone: 06-21-2022 14:12-0400 Systolic blood pressure 130 mm[Hg] [facility] Work Phone: 06-21-2022 13:13-0400 Body temperature 99.1 [degF] [facility] Work Phone: 06-21-2022 12:37-0400 Body height 180.34 cm [facility] Work Phone: 06-21-2022 12:37-0400 Body mass index (BMI) [Ratio] 32.1 kg/m2 [facility] Work Phone: 06-21-2022 12:37-0400 Body weight 104.32 kg [facility] Work Phone: 06-06-2022 10:10-0400 Body height 180.3 cm Ulices Taveras MD Work Phone: [facility] 06-06-2022 10:10-0400 Body temperature 97.11 [degF] Ulices Taveras MD Work Phone: [facility] 06-06-2022 10:10-0400 Body weight 103.96 kg Ulices Taveras MD Work Phone: [facility] 06-06-2022 10:10-0400 Diastolic blood pressure 80 mm[Hg] Ulices Taveras MD Work Phone: [facility] 06-06-2022 10:10-0400 Heart rate 56 /min Ulices Taveras MD Work Phone: [facility] 06-06-2022 10:10-0400 Respiratory rate 14 /min Ulices Taveras MD Work Phone: [facility] 06-06-2022 10:10-0400 SaO2% (BldA) [Mass fraction] 96 % Ulices Taveras MD Work Phone: [facility] 06-06-2022 10:10-0400 Systolic blood pressure 148 mm[Hg] Ulices Taveras MD Work Phone: [facility] 05-12-2022 11:36-0400 Diastolic blood pressure 75 mm[Hg] [facility] Work Phone: 05-12-2022 11:36-0400 Heart rate 80 /min [facility] Work Phone: 05-12-2022 11:36-0400 Systolic blood pressure 122 mm[Hg] [facility] Work Phone: 05-12-2022 11:32-0400 Body height 180.34 cm [facility] Work Phone: 05-12-2022 11:32-0400 Body mass index (BMI) [Ratio] 31.8 kg/m2 [facility] Work Phone: 05-12-2022 11:32-0400 Body weight 103.41 kg [facility] Work Phone: 05-12-2022 11:32-0400 Respiratory rate 16 /min [facility] Work Phone: 05-12-2022 11:32-0400 SaO2% (BldA) [Mass fraction] 96 % [facility] Work Phone: 05-09-2022 11:37-0400 Body height 176.5 cm Ulices Taveras MD Work Phone: [facility] 05-09-2022 11:37-0400 Body temperature 98.01 [degF] Ulices Taveras MD Work Phone: [facility] 05-09-2022 11:37-0400 Body weight 105.51 kg Ulices Taveras MD Work Phone: [facility] 05-09-2022 11:37-0400 Diastolic blood pressure 74 mm[Hg] Ulices Taveras MD Work Phone: [facility] 05-09-2022 11:37-0400 Heart rate 64 /min Ulices Taveras MD Work Phone: [facility] 05-09-2022 11:37-0400 Respiratory rate 18 /min Ulices Taveras MD Work Phone: [facility] 05-09-2022 11:37-0400 SaO2% (BldA) [Mass fraction] 95 % Ulices Taveras MD Work Phone: [facility] 05-09-2022 11:37-0400 Systolic blood pressure 134 mm[Hg] Ulices Taveras MD Work Phone: [facility] 04-25-2022 16:40-0400 Body height 179.1 cm Ulices Taveras MD Work Phone: [facility] 04-25-2022 16:40-0400 Body temperature 97.7 [degF] Ulices Taveras MD Work Phone: [facility] 04-25-2022 16:40-0400 Body weight 103.51 kg Ulices Taveras MD Work Phone: [facility] 04-25-2022 16:40-0400 Diastolic blood pressure 82 mm[Hg] Ulices Taveras MD Work Phone: [facility] 04-25-2022 16:40-0400 Heart rate 77 /min Ulices Taveras MD Work Phone: [facility] 04-25-2022 16:40-0400 Respiratory rate 14 /min Ulices Taveras MD Work Phone: [facility] 04-25-2022 16:40-0400 SaO2% (BldA) [Mass fraction] 95 % Ulices Taveras MD Work Phone: [facility] 04-25-2022 16:40-0400 Systolic blood pressure 138 mm[Hg] Ulices Taveras MD Work Phone: [facility] 04-23-2022 13:50-0400 Diastolic blood pressure 72 mm[Hg] Alek Negron MD Work Phone: [facility] 04-23-2022 13:50-0400 Heart rate 56 /min Alek Negron MD Work Phone: [facility] 04-23-2022 13:50-0400 Respiratory rate 16 /min Alek Negron MD Work Phone: [facility] 04-23-2022 13:50-0400 SaO2% (BldA) [Mass fraction] 96 % Alek Negron MD Work Phone: [facility] 04-23-2022 13:50-0400 Systolic blood pressure 125 mm[Hg] Alek Negron MD Work Phone: [facility] 04-23-2022 11:14-0400 Body temperature 97.59 [degF] Alek Negron MD Work Phone: [facility] 04-23-2022 11:14-0400 Body weight 104.33 kg Alek Negron MD Work Phone: [facility] 02-09-2022 12:31-0400 Diastolic blood pressure 87 mm[Hg] Mri (I-Stat/1.5t/3t) Work Phone: [facility] 02-09-2022 12:31-0400 Heart rate 78 /min Mri (I-Stat/1.5t/3t) Work Phone: [facility] 02-09-2022 12:31-0400 SaO2% (BldA) [Mass fraction] 98 % Mri (I-Stat/1.5t/3t) Work Phone: [facility] 02-09-2022 12:31-0400 Systolic blood pressure 131 mm[Hg] Mri (I-Stat/1.5t/3t) Work Phone: [facility] 02-09-2022 09:47-0400 Respiratory rate 16 /min Mri (I-Stat/1.5t/3t) Work Phone: [facility] 12-19-2021 05:10-0500 Diastolic blood pressure 72 mm[Hg] [facility] Work Phone: 12-19-2021 05:10-0500 Heart rate 64 /min [facility] Work Phone: 12-19-2021 05:10-0500 Respiratory rate 15 /min [facility] Work Phone: 12-19-2021 05:10-0500 SaO2% (BldA) [Mass fraction] 91 % [facility] Work Phone: 12-19-2021 05:10-0500 Systolic blood pressure 124 mm[Hg] [facility] Work Phone: 12-19-2021 04:10-0500 Diastolic blood pressure 72 mm[Hg] [facility] Work Phone: 12-19-2021 04:10-0500 Heart rate 64 /min [facility] Work Phone: 12-19-2021 04:10-0500 Respiratory rate 15 /min [facility] Work Phone: 12-19-2021 04:10-0500 SaO2% (BldA) [Mass fraction] 91 % [facility] Work Phone: 12-19-2021 04:10-0500 Systolic blood pressure 124 mm[Hg] [facility] Work Phone: 12-19-2021 02:25-0500 Body height 180.34 cm [facility] Work Phone: 12-19-2021 02:25-0500 Body mass index (BMI) [Ratio] 32.1 kg/m2 [facility] Work Phone: 12-19-2021 02:25-0500 Body temperature 98.1 [degF] [facility] Work Phone: 12-19-2021 02:25-0500 Body weight 104.32 kg [facility] Work Phone: 12-19-2021 01:25-0500 Body height 180.34 cm [facility] Work Phone: 12-19-2021 01:25-0500 Body mass index (BMI) [Ratio] 32.1 kg/m2 [facility] Work Phone: 12-19-2021 01:25-0500 Body temperature 98.1 [degF] [facility] Work Phone: 12-19-2021 01:25-0500 Body weight 104.32 kg [facility] Work Phone: 10-25-2021 09:17-0500 Body weight 103.87 kg [facility] Work Phone: 10-25-2021 09:17-0500 Diastolic blood pressure 78 mm[Hg] [facility] Work Phone: 10-25-2021 09:17-0500 Heart rate 62 /min [facility] Work Phone: 10-25-2021 09:17-0500 Systolic blood pressure 133 mm[Hg] [facility] Work Phone: 10-22-2020 07:32-0500 Body mass index (BMI) [Ratio] 33.2 kg/m2 [facility] Work Phone: 08-02-2017 14:09-0400 BMI (Body [...] Date Encounter Type Care Provider Facility Start: 07-25-2025 End: 07-25-2025 Patient encounter procedure Charlie Weathers [facility] -[facility] Work Phone: Start: 07-25-2025 End: 07-25-2025 ambulatory Kem Davila Facility:[facility] Start: 07-14-2025 End: 07-14-[address] Kem Davila MD -[facility] Work Phone: Start: 07-14-2025 End: 07-14-[address] Kem Davila MD Work Phone: -[facility] Start: 06-28-2025 ambulatory Kem Beckwithlay Facility :[facility] Start: 06-28-2025 Registered Referred Loy Roblero -Cardiovascular Services Work Phone: Start: 06-28-2025 Non-patient / Non-visit Dr. Candace DIAZ -[facility] Work Phone: Start: 06-20-2025 Non-patient / Non-visit Dr. London avila MD -[facility] Start: 06-20-2025 End: 06-20-[address] Kem Davila MD Work Phone: -Cardiovascular Services Start: 06-20-2025 End: 06-20-2025 Patient encounter procedure Loy JEFFRIES -Cardiovascular Services Work Phone: Start: 06-20-2025 End: 06-20-2025 ambulatory Loy Narayan Facility:[facility] Start: 06-09-2025 Non-patient / Non-visit Dr. Yessy Stern MD -[facility] Work Phone: Start: 06-09-2025 End: 06-09-[address] Kem Davila MD Work Phone: -Pulmonary Services/Neurology Start: 06-09-2025 End: 06-09-2025 Patient encounter procedure Joseph NEWTON -Pulmonary Services/Neurology Work Phone: Start: 06-09-2025 End: 06-09-2025 ambulatory Joseph Link HE[employer] SCIENCES MANAGER Facility:[facility] Start: 05-27-2025 End: 05-27-[address] Kem Davila MD Work Phone: -Pulmonary Services/Neurology Start: 05-27-2025 End: 05-27-2025 Patient encounter procedure Joseph Link HEALTH SCIENCES MANAGER-C -Pulmonary Services/Neurology Work Phone: Start: 05-27-2025 End: 05-27-2025 ambulatory Joseph Link HEALTH SCIENCES MANAGER Facility:[facility] Start: 05-21-2025 ambulatory Kem Davila Facility :[facility] Start: 05-21-2025 Non-patient / Non-visit Dr[facility] Candace DIAZ -[facility] Start: 05-21-2025 End: 05-21-[address] Kem Davila MD Work Phone: -Cardiovascular Services Start: 05-21-2025 End: 05-21-2025 Patient encounter procedure Joseph Link HEALTH SCIENCES MANAGER-C -Cardiovascular Services Work Phone: Start: 05-20-2025 End: 05-20-2025 Patient encounter procedure Joseph Link HEALTH SCIENCES MANAGER-C -[facility] Work Phone: Start: 05-20-2025 End: 05-21-[address] Kem Davila MD Work Phone: -[facility] Start: 05-19-2025 End: 05-19-2025 Emergency department patient visit Dr. Kem Davila MD Work Phone: -Emergency Department Work Phone: Start: 05-12-2025 End: 05-12-2025 Patient encounter procedure Joseph Link HEALTH SCIENCES MANAGER-C -[facility] Work Phone: Start: 05-12-2025 End: 05-12-[address] Kem Davila MD Work Phone: -[facility] Start: 11-25-2024 End: 11-25-2024 ambulatory Kem Davila Facility:[facility] Start: 05-13-2024 End: 05-14-2024 ambulatory KEM Parker LOLA Facility:[facility] Start: 05-13-2024 End: 05-14-2024 Office outpatient visit 25 minutes Emeli Hollins MD Work Phone: Geriatrics Comment on above: Word finding difficu lty (Primary Dx); Gait disturbance; Anxiety Start: 11-16-2023 End: 11-16-2023 [facility] Start: 11-13-2023 End: 11-14-2023 ambulatory KEM Parker LOLA Facility:[facility] Start: 10-20-2023 End: 10-20-2023 Emergency department patient visit Dr. Kem Davila Work Phone: [facility]-Emergency Department Work Phone: Start: 08-28-2023 End: 08-28-[address] Kem Davila Work Phone: [facility] Work Phone: Start: 04-03-2023 End: [...] Start: 12-08-2022 Patient encounter procedure [facility] Provider [facility] Department Start: 11-30-2022 Chart abstracting Emeli Hollins MD Work Phone: Neurology Comment on above: Forms Start: 11-11-2022 Telephone encounter Emeli Hollins MD Work Phone: Geriatrics Comment on above: Results Start: 11-08-2022 End: 11-08-2022 Subsequent hospital visit by physician Mri Skyra (I-Stat/3t) Work Phone: Radiology Comment on above: Cognitive impairment , mild, so stated [G31.84] Start: 10-31-2022 End: 10-31-2022 Patient encounter procedure Emeli Hollins MD Work Phone: Geriatrics Comment on above: Cognitive impairment , mild, so stated (Primary Dx); Fall, initial encounter; Gait disturbance; Anxiety; Bilateral hearing loss, unspecified hearing loss type; Impacted cerumen of left ear Start: 10-25-2022 Patient encounter procedure [facility] Provider [facility] Start: 08-26-2022 Refill Ulices Lopez MD Work Phone: [facility] Comment on above: Opened In Error Start: 08-20-2022 Patient encounter procedure [facility] Provider [facility] Start: 07-20-2022 End: 07-20-2022 Patient encounter procedure Azam Oconnell MD Work Phone: Gastroenterology Comment on above: 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)] (Primary Dx) Start: 07-01-2022 Patient encounter procedure Cc Provider [facility] Start: 06-21-2022 End: 06-21-2022 Emergency department patient visit [facility]-Emergency Department Start: 06-06-2022 End: 06-06-2022 Office outpatient visit 25 minutes Ulices Taveras MD Work Phone: [facility] Comment on above: Preoperative clearan ce (Primary Dx) Start: 06-06-2022 End: 06-06-2022 Preoperative state Ulices Taveras MD Work Phone: [facility] Start: 05-30-2022 Non-patient / Non-visit Ulices [facility] Start: 05-30-2022 End: 05-30-2022 Patient encounter procedure [facility]-Cardiovascular Services Start: 05-25-2022 Patient encounter procedure [facility] Provider [facility] Start: 05-23-2022 Patient encounter procedure Ccf Provider [facility] Department Start: 05-17-2022 Patient encounter procedure Ccf Provider [facility] Department Start: 05-12-2022 End: 05-12-2022 Patient encounter procedure Ulices Taveras [facility] Start: 05-09-2022 End: 05-09-2022 Office outpatient visit 15 minutes Ulices Taveras MD Work Phone: [facility] Comment on above: Primary hypertension (Primary Dx); Mixed hyperlipidemia; Ischemic heart disease; Hx of myocardial infarction; Diabetes mellitus type II (HCC); Idiopathic gout, unspecified chronicity, unspecified site; Anxiety Start: 05-09-2022 End: 05-09-2022 Patient encounter procedure Ulices Taveras [facility]-Pulmonary Services/Neurology Start: 04-28-2022 Telephone encounter Ulices Taveras MD Work Phone: [facility] Comment on above: Orders (pain managem ent referral) Start: 04-25-2022 End: 04-25-2022 Office outpatient visit 15 minutes Ulices Taveras MD Work Phone: [facility] Comment on above: Acute midline low ba ck pain with right-sided sciatica (Primary Dx) Start: 04-23-2022 End: 04-23-2022 Emergency department patient visit Alek Negron MD Work Phone: [facility] Emergency Dept Comment on above: Right hip pain (Prim alexander Dx); Osteoarthritis of both hips, unspecified osteoarthritis type Start: 04-22-2022 Patient encounter procedure Ccf Provider [facility] Department Start: 04-04-2022 End: 04-04-2022 Patient encounter procedure Ulices Taveras [facility] Start: 03-07-2022 Patient encounter status [facility]cf Provider [facility] Start: 02-09-2022 ambulatory Eufemia miramontes Comment on above: Patient Education Start: 02-09-2022 End: 02-09-2022 Subsequent hospital visit by physician Mri [employer] (I-Stat/1.5t/3t) Work Phone: MRI Q Comment on above: Exocrine pancreatic insufficiency [K86.81] Start: 01-17-2022 Non-patient / [facility] Start: 01-17-2022 End: 01-17-2022 Patient encounter procedure [facility]-Cardiovascular Services Start: 12-19-2021 End: 12-19-2021 Emergency department patient visit [facility]Emergency Department Start: 2021 Telephone encounter Tony Oconnell MD Work Phone: Gastroenterology Comment on above: Received Outside Med ical Records Start: 10-25-2021 End: 10-25-2021 Patient encounter procedure [facility] Procedures Date Procedure Procedure Detail Performing Clinician Start: 05-21-2025 Cardiovascular stres s test using pharmacologic stress agent Dr. 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 Prisca Lopes PA-C Work Phone: Start: 04-23-2013 [...] stent placement Ulices Taveras Comment on above: CUB-QDR-Nlor LAD w/ 4.0 x 12 mm Liberte Stent 09/09/2006 Plan of Treatment Date Care Activity Detail Author Start: 11-03-2032 Urine microalbumin profile [facility] Start: 06-24-2029 Colonoscopy COLONOSCOPY [facility] Start: 06-24-2029 COLORECTAL CANCER SCREENING COLORECTAL CANCER SCREENING [facility] Start: 06-24-2029 Screening for malign ant neoplasm of colon [facility] Start: 05-19-2025 [facility] Start: 05-19-2025 [facility] Start: 05-13-2025 Annual PCP Team Aircraft 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 l Disease Visit Annual PCP Team Chronic Disease Visit [facility] Start: 02-03-2025 End: 02-03-2025 Patient encounter procedure 02/03/2025 11:30 AM EDT Office Visit [facility] [address] [place] [address] Emeli Hollins MD [address] [place] [address] 9 month follow up Geriatric[facility] Comment on above: 9 month follow up Start: 12-15-2024 DIABETES SCREEN DIABETES SCREEN [facility] Start: 06-16-2024 Influenza vaccination Influenza Vacc ine (#1) [facility] Start: 04-03-2024 ANNUAL PCP TEAM TILE MASON JOSE L DISEASE VISIT ANNUAL PCP TEAM CHRONIC DISEASE VISIT [facility] Start: 04-03-2024 BP CONTROLLED (<130/80) BP CONTROLLE D (<130/80) [facility] Start: 10-31-2023 ANNUAL PCP TEAM TILE MASON JOSE L DISEASE VISIT ANNUAL PCP TEAM CHRONIC DISEASE VISIT [facility] Start: 10-20-2023 [facility] Start: 10-16-2023 Advance Directive Discussion Advance Directive Discussion [facility] Start: 06-16-2023 Covid-19 Vaccine ( season) Covid-19 Vaccine () [facility] Start: 06-06-2023 ANNUAL PCP TEAM TILE MASON JOSE L DISEASE VISIT ANNUAL PCP TEAM CHRONIC DISEASE VISIT [facility] Start: 05-09-2023 ANNUAL PCP TEAM TILE MASON JOSE L DISEASE VISIT ANNUAL PCP TEAM CHRONIC DISEASE VISIT [facility] Start: 04-25-2023 ANNUAL PCP TEAM TILE MASON JOSE L DISEASE VISIT ANNUAL PCP TEAM CHRONIC DISEASE VISIT [facility] Start: 11-02-2022 Hemoglobin A1c measurement HbA1C [facility] Start: 11-02-2022 Hemoglobin A1c/Hemoglobin.total in Blood HBA1C [facility] Start: 10-16-2022 ADVANCE DIRECTIVE DISCUSSION ADVANCE DIRECTIVE DISCUSSION [facility] Start: 06-16-2022 Influenza vaccination S [facility] Start: 10-16-2021 ADVANCE DIRECTIVE DISCUSSION ADVANCE DIRECTIVE DISCUSSION [facility] Start: 06-16-2021 Influenza vaccination INFLUENZA (#1) [facility] Start: 06-15-2021 COVID-19 VACCINE (3 - Booster for Moderna series) COVID-19 VACCINE (3 - Booster for Moderna series) [facility] Start: 03-10-2021 COVID-19 VACCINE (3 - Booster for Moderna series) COVID-19 VACCINE (3 - Booster for Moderna series) [facility] Start: 01-29-2018 End: 01-29-2018 Appointment Appointment [facility] Work Phone: Start: 2017 ADVANCE DIRECTIVE DISCUSSION ADVANCE DIRECTIVE DISCUSSION [facility] Start: 2017 Pneumococcal 65+ yea rs Vaccine (1 - PCV) Pneumococcal 65+ years Vaccine (1 - PCV) [facility] Start: 2017 PNEUMOVAX AGE 65 AND OVER WITH 5YR LOOKBACK (#1) PNEUMOVAX AGE 65 AND OVER WITH 5YR LOOKBACK (#1) [facility] Start: 08-02-2017 End: 08-02-2017 Appointment Appointment [facility] Work Phone: Start: 08-02-2017 End: 08-02-2017 Follow Up Appt 6 months Follow Up Appt 6 months [facility] Work Phone: Start: 08-02-2017 End: 08-02-2017 MMM MMM [facility] Work Phone: Start: 08-02-2017 End: 08-02-2017 Follow Up Appt 6 months Follow Up Appt 6 months [facility] Work Phone: Start: 08-02-2017 End: 08-02-2017 MMM MMM [facility] Work Phone: Start: 09-03-2014 Hepatitis B surface antibody level LDL CHOLESTEROL [facility] Start: 08-16-2014 Hepatitis B surface antibody level LDL Cholesterol [facility] Start: 02-13-2014 End: 09-05-2013 *Hepatic Function Panel *Hepatic Function Panel [facility] Work Phone: Start: 02-13-2014 End: 09-05-2013 Lipid panel [AGGREGATE] *Lipid Profile CC PCP [facility] Work Phone: Start: 02-13-2014 End: 09-05-2013 *Hepatic Function Panel *Hepatic Function Panel [facility] Work Phone: Start: 02-13-2014 End: 09-05-2013 Lipid panel [AGGREGATE] *Lipid Profile CC PCP [facility] Work Phone: Start: 08-16-2013 End: 09-03-2013 *Hepatic Function Panel *Hepatic Function Panel [facility] Work Phone: Start: 08-16-2013 End: 09-03-2013 Lipid panel [AGGREGATE] *Lipid Profile CC PCP [facility] Work Phone: Start: 08-16-2013 End: 09-03-2013 *Hepatic Function Panel *Hepatic Function Panel [facility] Work Phone: Start: 08-16-2013 End: 09-03-2013 Lipid panel [AGGREGATE] *Lipid Profile CC PCP [facility] Work Phone: Start: 04-23-2013 End: 08-02-2017 [facility] Work Phone: Start: 04-23-2013 End: 08-02-2017 Ecg routine ecg w/least 12 lds w/i&r EKG (In office) [facility] Work Phone: Start: 04-23-2013 End: 08-02-2017 Follow Up Appt 6 months Follow Up Appt 6 months [facility] Work Phone: Start: 04-23-2013 End: 08-02-2017 [facility] Work Phone: Start: 04-23-2013 End: 08-02-2017 Electrocardiogram, complete EKG (In office) [facility] Work Phone: Start: 04-23-2013 End: 08-02-2017 Follow Up Appt 6 months Follow Up Appt 6 months [facility] Work Phone: Start: 2012 RSV Vaccine (1 - 1-d ose 60+ series) RSV Vaccine (1 - 1-dose 60+ series) [facility] Start: 10-23-2012 End: 04-03-2013 Follow Up Appt 6 months Follow Up Appt 6 months [facility] Work Phone: Start: 10-23-2012 End: 04-03-2013 Follow Up Appt 6 months Follow Up Appt 6 months [facility] Work Phone: Start: 10-16-2012 End: 03-04-2013 *Hepatic Function Panel *Hepatic Function Panel [facility] Work Phone: Start: 10-16-2012 End: 03-04-2013 Lipid panel [AGGREGATE] *Lipid Profile [facility] Work Phone: Start: 10-16-2012 End: 03-04-2013 *Hepatic Function Panel *Hepatic Function Panel [facility] Work Phone: Start: 10-16-2012 End: 03-04-2013 Lipid panel [AGGREGATE] *Lipid Profile [facility] Work Phone: Start: 04-24-2012 End: 04-24-2012 Follow Up Appt 6 months Follow Up Appt 6 months [facility] Work Phone: Start: 04-24-2012 End: 04-24-2012 Follow Up Appt 6 months Follow Up Appt 6 months [facility] Work Phone: Start: 08-31-2011 End: 08-31-2011 Follow Up Appt 6 months Follow Up Appt 6 months [facility] Work Phone: Start: 08-31-2011 End: 08-31-2011 Follow Up Appt 6 months Follow Up Appt 6 months [facility] Work Phone: Start: 2007 PROSTATE CANCER SCREENING DISCUSSION PROSTATE CANCER SCREENING DISCUSSION [facility] Start: 2002 Shingles vaccine (1 of 2) Shingles vaccine (1 of 2) [facility] Start: 2002 SHINGRIX VACCINE (1 of 2) SHINGRIX VACCINE (1 of 2) [facility] Start: 1997 COLOGUARD (FIT-DNA) COLOGUARD (FIT-D NA) [facility] Start: 1997 Colonoscopy COLONOSCOPY [facility] Start: 1997 COLORECTAL CANCER SCREENING COLORECTAL CANCER SCREENING [facility] Start: [address] COLONOGRAPHY [facility] Start: 1997 DIABETES SCREEN DIABETES SCREEN [facility] Start: 1997 FECAL OCCULT BLOOD FECAL OCCULT BLOO D [facility] Start: 1997 Screening for malign ant neoplasm of colon [facility] Start: 1997 SIGMOIDOSCOPY SIGMOIDOSCOPY [facility] Start: 1992 Lipid panel Lipids [facility] Start: 1992 Prostate specific antigen measurement Prostate Specific Antigen (PSA) Screening or Monitoring [facility] Start: 1987 LIPID SCREEN LIPID SCREEN [facility] Start: 1971 DTaP/Tdap/Td vaccine (1 - Tdap) DTaP/Tdap/Td vaccine (1 - Tdap) [facility] Start: 1971 Urine microalbumin profile DTAP,TDAP,TD (1 - Tdap) [facility] Start: 1970 BP CONTROLLED (<130/80) BP CONTROLLE D (<130/80) [facility] Start: 1970 Hepatitis B surface antibody level LDL CHOLESTEROL [facility] Start: 1970 HEPATITIS C SCREENING HEPATITIS C SC BILL [facility] Start: 1970 Hepatitis C screening [facility] Start: 1964 Adult depression screening assessment DEPRESSION SCREENING [facility] Start: 1964 Depression Screen Depression Screen [facility] Start: 1962 3 comp foot exam completed DIABETIC FOOT EXAM [facility] Start: 1962 Diabetic foot examination Diabetic Foot Exam [facility] Start: 1962 Glaucoma screening Dilated Retinal E xam [facility] Start: 1962 Hepatitis B screening URINE ALBUMIN:CREATININE RATIO [facility] Start: 1962 Hepatitis C antibody , confirmatory test DILATED RETINAL EXAM [facility] Start: 1958 PNEUMOCOCCAL: 65+ (1 - PCV) PNEUMOCOCCAL: 65+ (1 - PCV) [facility] Start: 1957 COVID-19 VACCINE (1) COVID-19 VACCIN E (1) [facility] Start: 1957 Hemoglobin A1c/Hemoglobin.total in Blood HBA1C [facility] 24 Hour ECG [facility] End: 11-30-2023 MRI 3D POST PROCESSING MRI 3D POST PROCESSING Radiology Routine Cognitive impairment, mild, so stated 1 Occurrences starting 10/31/2022 until 11/30/2023 [facility] Work Phone: Comment on above: 1 Occurrences starti ng 10/31/2022 until 11/30/2023 End: 01-08-2024 Mri brain brain stem w/o contrast material MRI BRAIN WO IVCON Radiology Routine Cerebral infarction, unspecified mechanism (HCC) 1 Occurrences starting 12/09/2022 until 01/08/2024 [facility] Work Phone: Comment on above: 1 Occurrences starti ng 12/09/2022 until 01/08/2024 End: 11-30-2023 MRI BRAIN W QUANT WO IVCON MRI BRAIN W QUANT WO IVCON Radiology Routine Cognitive impairment, mild, so stated 1 Occurrences starting 10/31/2022 until 11/30/2023 [facility] Work Phone: Comment on above: 1 Occurrences starti ng 10/31/2022 until 11/30/2023 NM Heart Views W str ess and W radionuclide IV [facility] Patient Education [facility] Work Phone: Patient referral [facility] Work Phone: [place] [facility] Immunizations Immunization Date Immunization Notes Care Provider [facility] 07-14-2025 Seasonal trivalent influenza vaccine, adjuvanted, preservative free Dr. Kem Davila MD Work Phone: [facility] 08-29-2024 influenza, high dose seasonal, preservative-free Dr. Kem Davila MD Work Phone: [facility] 08-29-2024 RSV Adult BiValent (Abrysvo) Dr. Kem Davila MD Work Phone: [facility] 08-28-2023 influenza, injectabl e, quadrivalent, preservative free Dr. Kem Davila Work Phone: [facility] 08-28-2023 influenza virus vacc ine, unspecified formulation Emeli Hollins MD Work Phone: [facility] 11-03-2022 tetanus toxoid, redu gwen diphtheria toxoid, and acellular pertussis vaccine, adsorbed Emeli Hollins MD Work Phone: [facility] 08-18-2022 influenza (HD-IIV4) vaccine, age 65+ yr, high dose, quadrivalent, PF (FLUZONE HIGH-DOSE) Emeli Hollins MD Work Phone: [facility] 08-18-2022 Influenza, high dose seasonal Dr. Kem Davila MD Work Phone: [facility] 08-18-2022 influenza, high dose seasonal, preservative-free Dr. Kem Davila Work Phone: [facility] 08-23-2021 pneumococcal polysaccharide vaccine, 23 valent Emeli Hollins MD Work Phone: [facility] 08-19-2021 influenza (aIIV4) vaccine, age 65+ yr, quadrivalent, PF (FLUAD QUAD) Emeli Hollins MD Work Phone: [facility] 08-19-2021 Influenza, high dose seasonal Dr. Kem Davila MD Work Phone: [facility] 08-19-2021 influenza, high dose seasonal, preservative-free Dr. Kem Davila Work Phone: [facility] 08-19-2021 influenza, injectabl e, quadrivalent, preservative free Dr. Kem Davila MD Work Phone: [facility] 01-13-2021 Covid (Moderna) Dr. Kem sandoval Work Phone: [facility] 12-17-2020 Covid (Moderna) Dr. Kem sandoval Work Phone: [facility] 08-10-2020 influenza (aIIV4) vaccine, age 65+ yr, quadrivalent, PF (FLUAD QUAD) Emeli Hollins MD Work Phone: [facility] 08-10-2020 Influenza, high dose seasonal Dr. Kem Davila MD Work Phone: [facility] 08-10-2020 influenza, high dose seasonal, preservative-free Dr. Kem Davila Work Phone: [facility] 08-10-2020 influenza, injectabl e, quadrivalent, preservative free Dr. Kem Davila MD Work Phone: [facility] 07-18-2019 Influenza, high dose seasonal Dr. Kem Davila MD Work Phone: [facility] 07-18-2019 influenza, high dose seasonal, preservative-free Emeli Hollins MD Work Phone: [facility] 07-18-2019 pneumococcal conjuga te vaccine, 13 valent Emeli Hollins MD Work Phone: [facility] 01-12-2009 hepatitis B vaccine, pediatric or pediatric/adolescent dosage Emeli Hollins MD Work Phone: [facility] 09-08-2008 influenza virus vacc ine, whole virus Emeli Hollins MD Work Phone: [facility] 09-08-2008 influenza, injectabl e, quadrivalent, preservative free Dr. Kem Davila Work Phone: [facility] 08-11-2008 hepatitis B vaccine, pediatric or pediatric/adolescent dosage Emeli Hollins MD Work Phone: [facility] 07-10-2008 hepatitis B vaccine, pediatric or pediatric/adolescent dosage Emeli Hollins MD Work Phone: [facility] Payers Date Payer Category Payer Self-pay [id number] 2017 Medicare MEDICARE MEDICAR E A AND B [id number] 2017-Present [phone] [place] [id number] Medicare [id number] 2017 Medicare MEDICARE MEDICAR E A AND B [id number] 2017-Present [phone] [place] [address] Medicare [id number] 2017 Unknown [employer] 2N D [id number] 2017-Present [phone] [address] [place] [address] Indemnity [id number] 2017 Unknown [employer] 2N D [id number] 2017-Present [phone] [address] [address] [place] [address] Indemnity [id number] 2017 Medicare [id number] 2017 Unknown [id number] 1950 Unknown [id number] Private Health Insurance H [id number] Unknown [facility] *DO NOT USE* [id number] Unknown [id number] 2.462 Unknown [id number]. 2.462 Unknown [id number]. 2.462 Unknown [id number]. 2.462 Unknown [id number] 2.16.840.1.827781.3.579. 2.462 Unknown [id number]. 2.462 Unknown [id number]. 2.462 Unknown [id number]. 2.462 Unknown [id number] 2.16.840.1.249914.3.579. 2.462 Unknown [id number] 2.16.840.1.427607.3.579. 2.462 Unknown [id number] 2.16.840.1.553873.3.579. 2.462 Unknown [id number] 2.16.840.1.867850.3.579. 2.462 Unknown [id number] [id number]. 2.462 Unknown [id number] [id number]. 2.462 Unknown [id number] [id number]. 2.462 Social History Date Type Detail Facility Start: 12-19-2021 End: 10-20-2023 Tobacco smoking status PRIS Tobacco smoking consumption unknown [facility] Start: 1950 Sex Assigned At Not on file C [facility] Start: 04-13-2022 End: 07-20-2022 Exposure to SARS-CoV-2 (event) Not sure [facility] Start: 09-17-2019 None [facility] Start: 09-17-2019 Spouse/ Signif icant Other [facility] Start: 1950 Sex Assigned At Male [facility] Start: 12-15-2021 End: 05-19-2025 Tobacco smoking status NHIS Never smoked tobacco [facility] Start: 12-15-2021 End: 12-09-2022 Tobacco use and exposure Smokeless tobacco non-user [facility] Start: 12-15-2021 End: 03-07-2022 Alcohol intake Lifetime non-drinker (finding) [facility] Start: 12-15-2021 End: 04-23-2022 History SDOH Alcohol Frequency 1 [facility] Start: 04-25-2022 End: 05-13-2024 Alcohol intake Current drinker of alcohol (finding) [facility] Start: 04-25-2022 History SDOH Alcohol Comment social [facility] Start: 03-21-2023 End: 05-13-2024 History of Social function [facility] Start: 03-21-2023 End: 05-13-2024 Tobacco use panel [facility] Adult Depression Screening Assessment 0 [facility] Medical Equipment Procedure Code Equipment Code Equipment Origin al Text Equipment Identifier Dates DOUGDavi,CEMENT 6191-1-010 FDA Start: 03-05-2018 DOUGH,CEMENT 6191-1-010 FDA [...] Lancets (Advance d Travel Lancets) [facility] Start: 11-03-2022 End: 11-10-2022 DOUGH,CEMENT 6191-1-010 FDA [...] End: 12-12-2023 ARYA,CEMENT 6191-1-010 FDA Start: 03-05-2018 ARYA,CEMENT 6191-1-010 FDA Start: 03-05-2018 TRIATHLON CRUC R [...] End: 12-12-2023 ARYA,CEMENT 6191-1-010 FDA Start: 03-05-2018 DOUGDavi,CEMENT 6191-1-010 FDA Start: 03-05-2018 TRIATHLON CRUC R [...] End: 12-12-2023 DOUGH,CEMENT 6191-1-010 FDA Start: 03-05-2018 ARYACEMENT 6191-1-010 FDA [...] 12-12-2023 ABDULLAHI KOENIG 6191-1-010 FDA Start: 03-05-2018 ABDULLAHI KOENIG 6191-1-010 FDA Start: 03-05-2018 TRIATHLON CRUC R [...] 11-10-2022 End: 12-12-2023 Clinical Notes 09-09-2006 to 07-25-2025 Note Date & Type Note Facility 07-25-2025 Progress note [facility] 07-25-2025 Progress note Note Date/Time July 31, 2025 8:04am [facility] [address] 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 Chief Complaint: 6 M FU Allergies No Known Allergies Allergy (Verified 07/14/25 13:53) Have you fallen in the past year?: No Office Procedures [facility] Billing Sheet Testing Pre-Employment Drug Screen: Yes Clinical Quality Measures Falls Risk Screening/Assistive Devices Have you fallen in the past year?: No 07/31/25 0804 <Electronically signed by Charlie JEFFRIES> Date _ [facility]RIES [facility] Signature: Date (if applicable) CC: ~ [facility] Work Phone: [phone]) 936-187809-29-2025 Progress [facility] [address] [place] [address] OFFICE VISIT Date of Service: 07/14/25 MR#: [id number] Acct: [id number] Name: RUSLAN STEPHENS Rep #: [id number] : 1950 Provider: Dr. 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 Accompanied by: Self Is patient in pain?: No Allergies No Known Allergies Allergy (Verified 07/14/25 13:53) Medications ?Medication ?Instructions ?Recorded ?Confirmed ?Type aspirin 81 mg chewable tablet 81 mg PO DAILY@0800 05/2 12/3107/14/25 Rx blood-glucose meter #1 ea 11/10/22 07/14/25 Rx blood sugar diagnostic (Blood #50 ea 12/12/23 07/14/25 Rx Glucose Test strips) lancets 31 gauge #100 ea 12/12/23 07/14/25 Rx nitroglycerin 0.4 mg sublingual 0.4 mg sublingual Q5-1 5M PRN 12/12/23 07/14/25 Rx tablet Cardiac/Chest Pain #30 tabs lancets 28 gauge (Comfort EZ #100 ea 06/03/24 07/14/25 Rx Lancets) escitalopram oxalate 20 mg tablet 20 mg PO DAILY #90 t abs 11/25/24 07/14/25 Rx finasteride 5 mg tablet (Proscar) 5 mg PO DAILY #90 ta bs 11/25/24 07/14/25 Rx Held on 07/14/25. Instructions: Order Changed losartan 50 mg tablet 50 mg PO DAILY #90 tabs 11/1607/14/25 Rx tamsulosin 0.4 mg capsule 0.4 mg PO DAILY #90 caps 08/0907/14/25 Rx Held on 07/14/25. Instructions: Order Changed biotin 5 mg capsule 5 mg PO QDAY 05/12/25 History calcium 333 mg-vit D3 200 1 tab PO QDAY 05/12/2507/14 History unit-magnesium 133 mg-zinc 5 mg tablet lactobacillus combination no.9 4 4,000 mmu cells PO QD AY 05/12/25 07/14/25 History billion cell capsule (Adult 50 Plus Probiotic) prevagen 1 cap PO QDAY 05/12/2507/14 History total beets 3 tab PO QDAY 05/12/2507/14 History metoprolol succinate 25 mg 25 mg PO QDAY HEART/BP #90 tabs 06/03/25 07/14/25 Rx tablet,extended release 24 hr omeprazole 40 mg capsule,delayed 40 mg PO QHS GERD #90 caps 06/12/25 07/14/25 Rx release atorvastatin 80 mg tablet (Lipitor) 80 mg PO QHS ROBERT STEROL #90 tabs 06/28/25 07/14/25 Rx apixaban 5 mg tablet (Eliquis) 5 mg PO BID #60 tabs 07/14/25 Rx mirabegron 25 mg tablet,extended 25 mg PO QDAY #30 tab s 07/14/25 07/14/25 Rx release 24 hr (Myrbetriq) Have you fallen in the past year?: No Nurse's Note: working with Dr Freed office with spells of dizziness feeling as if he is going to pass out [facility] Medical History Gout Near syncope Urinary tract infection Obesity History of non-ST elevation myocardial infarction (NSTEMI) (09/09/06) Essential (primary) hypertension Hernia Hyperlipidemia Atherosclerotic heart disease of [place] coronary artery without angina pectoris Surgical History [...] current occupational status: 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 He has not done his routine blood work as previously ordered. He believes he is upto date on his screening. He is up to date on his immunizations. He doesn't smoke and does not need refills today. He reports he eats healthysometimes. He reports he hasn't been very active. He reports his job is physical. He doesn't check his blood pressure at home. He is taking his medications as prescribed without anyproblems. He does still eat salty foods. The patient follows with cardiology for his CAD. He last saw them in May. He is taking his medications without problems. He denies any concerns of chest pain but has been having shortness of breath as below. The patient has been having lightheadedness and shortness of breath with exertion. He reports it has been going on for a couple of months. He reports his symptoms started with shortness of breath with exertion, but now has progressed to having weakness and lightheaded episodes. He reports he has had 6-8 episodes since it started. He reports if he doesn't have something to hold onto, he will fall.He states he has had 2-3 falls, one which was caused syncope. He saw cardiology in May and had astress, echo and holter monitor. Per cardiology's most recent note, there was concern of a new onset of atrial fibrillation and eliquis was recommended. He and his feel that it is getting more frequent. The patient reports he has been unable to drive due to these episodes. He has a history of diabetes. It is mostly diet controlled. He does rarely check his sugars at home. He has not been monitoring his carbohydrate/sugar intake. He is not up to date [facility] his [facility] exam[facility], Dr. Stern. The patient has a history of gout. He is not currently on any medications and he hasn't had any recent gout flare ups. He is on flomax and proscar. He reports he still has urinary frequency and nocturia. He saw urologyand reports he was told his prostate was not large. He is interested in trying something else for his symptoms. The patient feels that his memory is the same, however, his feels that it is getting worse. She reports he gets confused and doesn't have any concept of time. 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 He continues to take prevagen. They don't know if it has made a difference. They feel likethey candeal with it right now. His does feel like he has had some mood changes. He does take lexapro and finds it has been beneficial. ROS Const Constitutional: No body ache, excessive sweating, fatigue, fever(s), frequent falls, headache(s), snoring, weakness, weight change, sleep problems or change in appetite Eyes Eyes: No blurry vision, change in vision, eye pain or Light sensitivity ENT ENT: No abnormal hearing, ear or mastoid pain, tinnitus, nasal congestion, headache(s), neck pain or sore throat Resp Respiratory: Positive for cough and shortness of breath; No snoring or wheezing Cardio Cardiology: Positive for dyspnea on exertion, lightheadedness and other (leg swelling); No chest pain at rest, chest pain with exertion, excessive sweating, shortness of breath, orthopneaor palpitations Gastro GI: No abdominal pain, change in bowel habits, constipation, cramping, diarrhea,nausea/dyspepsia orvomiting Genitourinary Male: Positive for urinary frequency and Frequent nighttime urination/ nocturia; No difficulty urinating, burning urination, painful urination, urinary incontinence or blood in urine Musc Musculoskeletal: No abnormal gait, joint pain, back pain, limited range of motion, neck pain, numbness, stiffness, tingling or Arthritis Skin Skin: No dry skin, redness, lesions, itchy eyes, rash or wounds Neuro Neurology: Positive for dizziness, memory loss and fainting; No abnormal gait, abnormal hearing, abnormal speech, weakness, frequent falls, headache(s), numbness or tingling Psych Psychiatric: No anxiety, No change in appetite, No depression, Positive for memory loss and No Thoughts of harming yourself/Others Endo Endocrine: No cold intolerance, excessive sweating, fatigue, flushing, heat intolerance, increased thirst/drinking, increased hunger or weight change Aller/Imm Allergy/Immunologic: No itchy eyes, seasonal allergy symptoms, hives or wheezing Giovani/Lymp Hematologic/Lymphatic: No easy bleeding, easy bruising or enlarged lymph nodes Exam Const General: cooperative, healthy appearing, no acute distress, well developed, not diaphoretic and notill appearing Nutritional Appearance: well nourished Orientation: alert and oriented x3 Limitations: mental status not altered [place] Head: normal to inspection, normocephalic and atraumatic Ears: hearing grossly normal bilaterally Face and sinus: normal facial exam Mouth: oral mucosae normal and moist mucous membranes Teeth and gingiva: dentition normal Throat: posterior oropharynx normal Eyes Conjunctivae: conjunctivae normal Sclera: sclerae normal Pupils: PERRL Chest Chest palpation & inspection: normal inspection of the chest Resp Effort & Inspection: normal respiratory effort, able to speak in complete sentences, no audiblewheezes and no cough Auscultation: Bilateral: Clear to Auscultation Cardio Rate: bradycardic Rhythm: regular rhythm Heart Sounds: S1 normal, S2 normal and no murmurs GI Inspection: non-distended Auscultation: normal bowel sounds Palpation: soft and nontender Skin General: no rashes or lesions noted and dry skin Wounds: no wounds Neuro General: patient alert, patient oriented x3 and not confused Cranial Nerves: PERRL Speech: speech normal Extrem General: normal to inspection and no edema Psych Appearance: grossly normal Mental Status: mental status grossly normal Affect: normal affect Attitude: cooperative Results POC A1C POC A1C 6.7 % Last Edit by Dilcia Shi on 07/14/25 14:22 Immunizations Fluad 2024- 65yr up(PF)45 mcg(15 mcgx3)/0.5 mL intramuscular syringe Performing Provider: Kem Davila MD Performing Location: [facility] Administered by: Dilcia Shi on 07/14/25 15:05 Dose Route Admin Location Dispensed Lot Number Expiration Date Pack age NDC NDC Teacher Advisor 45 mcg IM Left Arm (SQ) 0.5 mL [id number] 02/10/26 [id number] [employer]. VIS Given Date VIS Provided VIS Publication Date 07/14/25 Single Vaccine 24 Eligibility Eligibility Date Funding Source Not Applicable Administration Comments: patient tolerated injection well Coding Level of Care Code Off vis,est,level 5 Diagnoses Diet-controlled diabetes mellitus E11.9 Essential (primary) hypertension I10 Anxiety and depression F41.9; F32.A Memory change R41.3 Atherosclerosis of [place] coronary artery of [place] heart without angina pectoris I25.10 [place]a vs. transplanted heart: [place] heart Paroxysmal atrial fibrillation I48.0 Urinary frequency R35.0 Immunization due Z23 Time Spent (min) 42 Assessment and Plan Assessment and Plan (1) Diet-controlled diabetes mellitus: Status: Acute Plan: The patient's A1c today was 6.7, which has remained fairly unchanged over the last year. Still no need for medications at this time, however, again discussedthe importance of monitoring carbohydrate and sugar intake. If his A1c increases to above 7, will consider medications at that time. He voiced understanding and was in agreement. The patient's eye exam is up to date and hedoes follow with podiatry. Patient encouraged to complete his labs as previously ordered and he was in agreement. (2) Essential (primary) hypertension: Status: Chronic Plan: Blood pressure shows fair control today. Will continue current management for now and monitor. Discussed monitoring salt intake. (3) Anxiety and depression: Status: Acute Plan: Patient is doing well on his lexapro without problems. He does admit to some symptoms of anxiety and feeling down. He scored 0 on his PHQ at his last officevisit. Will continue current management andmonitor. He denies any thoughts ofsuicide. (4) Memory change: Status: Acute Plan: Work up thus far hasn't demonstrated any significant findings. He hasn't seen his warping mill operator recently. Will try to get records. Patient has previously declined seeing a speech therapist to help with word finding. (5) Atherosclerotic heart disease of [place] coronary artery without angina pectoris: Status: Chronic Qualifiers: [place]a vs. transplanted heart: [place] heart Qualified Code(s): I25.10 - Atherosclerotic heart disease of [place] coronary artery without angina pectoris Comment: [id number] LAD w/ 4.0 x 12 mm Liberte Stent 09/09/2006; Plan: Stable. Patient follows with cardiology. Will follow up on their findings and recommendations. He recently had a normal stress test. (6) Paroxysmal atrial fibrillation: Status: Acute Comment: Per Event Monitor 06/2025; Plan: Likely related to recent symptoms. Appears regular on exam today. Discussed what cardiology's note said. He is agreeable to trying eliquis, so will order. Encouraged him to call their office for further management. He was in agreement. (7) Urinary frequency: Plan: Patient hasn't noticed much of a difference with the flomax or proscar. He saw urology who didn't feel his prostate was enlarged. Discussed trying an alternative medication like myrebtriq, which he is agreeable to. Will have him hold his flomax and proscar. They were encouraged to call if any problems with the medication change and they were in agreement. (8) Immunization due: Plan: The patient was given a flu shot in the office today, which he tolerated well. The patient is here for a follow up. Plan as above. Medications reviewed with the patient. Routine follow up scheduled. The patient was instructed to call with any concerns or questions before then and they were in agreement. I spent a total of 42 minutes on the date of the service which included preparing to see the patient, [id number] patient care, completing clinical documentation, obtaining and/or reviewing separately obtained history. This excludes separately reportable services. Orders: Orders POC A1C Today E11.9 - Type 2 diabetes mellitus without complications Influenza Immunization Today Z23 - Encounter for immunization Medications: New apixaban (Eliquis) 5 mg PO BID 60 tabs 0RF mirabegron ER (Myrbetriq) 25 mg PO QDAY 30 tabs 0RF On Hold finasteride (Proscar) Hold Comment: Order Changed 5 mg PO DAILY 90 tabs 1RF tamsulosin Hold Comment: Order Changed 0.4 mg PO DAILY 90 caps 1RF Plan Details Follow Up: 3 Months Clinical Quality Measures Falls Risk Screening/Assistive Devices Have you fallen in the past year?: No 07/14/25 1615 y MD> Date _ Kem Davila MD Cosigner Signature: Date (if applicable) CC: ~ [facility]09-29-2025 Progress note Author Kem Davila [facility] Services Note Date/Time July 14, 2025 2:53pm [facility] [address] [place] [address] [place] [address] OFFICE VISIT Date of Service: 07/14/25 MR#: [id number] Acct: [id number] Name: RUSLAN STEPHENS Rep #: [id number] : 1950 Provider: Dr. 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 Accompanied by: Self Is patient in pain?: No Allergies No Known Allergies Allergy (Verified 07/14/25 13:53) Medications ?Medication ?Instructions ?Recorded ?Confirmed ?Type aspirin 81 mg chewable tablet 81 mg PO DAILY@0800 05/2 12/3107/14/25 Rx blood-glucose meter #1 ea 11/10/22 07/14/25 Rx blood sugar diagnostic (Blood #50 ea 12/12/23 07/14/25 Rx Glucose Test strips) lancets 31 gauge #100 ea 12/12/23 07/14/25 Rx nitroglycerin 0.4 mg sublingual 0.4 mg sublingual Q5-1 5M PRN 12/12/23 07/14/25 Rx tablet Cardiac/Chest Pain #30 tabs lancets 28 gauge (Comfort EZ #100 ea 06/03/24 07/14/25 Rx Lancets) escitalopram oxalate 20 mg tablet 20 mg PO DAILY #90 t abs 11/25/24 07/14/25 Rx finasteride 5 mg tablet (Proscar) 5 mg PO DAILY #90 ta bs 11/25/24 07/14/25 Rx Held on 07/14/25. Instructions: Order Changed losartan 50 mg tablet 50 mg PO DAILY #90 tabs 11/1607/14/25 Rx tamsulosin 0.4 mg capsule 0.4 mg PO DAILY #90 caps 08/0907/14/25 Rx Held on 07/14/25. Instructions: Order Changed biotin 5 mg capsule 5 mg PO QDAY 05/12/25 History calcium 333 mg-vit D3 200 1 tab PO QDAY 05/12/2507/14 History unit-magnesium 133 mg-zinc 5 mg tablet lactobacillus combination no.9 4 4,000 mmu cells PO QD AY 05/12/25 07/14/25 History billion cell capsule (Adult 50 Plus Probiotic) prevagen 1 cap PO QDAY 05/12/2507/14 History total beets 3 tab PO QDAY 05/12/2507/14 History metoprolol succinate 25 mg 25 mg PO QDAY HEART/BP #90 tabs 06/03/25 07/14/25 Rx tablet,extended release 24 hr omeprazole 40 mg capsule,delayed 40 mg PO QHS GERD #90 caps 06/12/25 07/14/25 Rx release atorvastatin 80 mg tablet (Lipitor) 80 mg PO QHS ROBERT STEROL #90 tabs 06/28/25 07/14/25 Rx apixaban 5 mg tablet (Eliquis) 5 mg PO BID #60 tabs 07/14/25 Rx mirabegron 25 mg tablet,extended 25 mg PO QDAY #30 tab s 07/14/25 07/14/25 Rx release 24 hr (Myrbetriq) Have you fallen in the past year?: No Nurse's Note: working 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 He has not done his routine blood work as previously ordered. He believes he is upto date on his screening. He is up to date on his immunizations. He doesn't smoke and does not need refills today. He reports he eats healthy sometimes. He reports he hasn't been very active. He reports his job is physical. He doesn't check his blood pressure at home. He is taking his medications as prescribed without any problems. He does still eat salty foods. The patient follows with cardiology for his CAD. He last saw them in May. He is taking his medications without problems. He denies any concerns of chest pain but has been having shortness of breath as below. The patient has been having lightheadedness and shortness of breath with exertion. He reports it has been going on for a couple of months. He reports his symptoms started with shortness of breath with exertion, but now has progressed to having weakness and lightheaded episodes. He reports he has had 6-8 episodes since it started. He reports if he doesn't have something to hold onto, he will fall. He states he has had 2- 3 falls, one which was caused syncope. He saw cardiology in May and had a stress, echo and holter monitor. Per cardiology's most recent note, there was concern of a new onset of atrial fibrillation and eliquis was recommended. He and his feel that it is getting more frequent. The patient reports he has been unable to drive due to these episodes. He has a history of diabetes. It is mostly diet controlled. He does rarely check his sugars at home. He has not been monitoring his carbohydrate/sugar intake. He is not up to date on his eye exam. He does follow with podiatry, Dr. Stern. The patient has a history of gout. He is not currently on any medications and he hasn't had any recent gout flare ups. He is on flomax and proscar. He reports he still has urinary frequency and nocturia. He saw urology and reports he was told his prostate was not large. He is interested in trying something else for his symptoms. The patient feels that his memory is the same, however, his feels that it is getting worse. She reports he gets confused and doesn't have any concept of time. 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 He continues to take prevagen. They don't know if it has made a difference. They feel like they candeal with it right now. His does feel like he has had some mood changes. He does take lexapro and finds it has been beneficial. ROS Const Constitutional: No body ache, excessive sweating, fatigue, fever(s), frequent falls, headache(s), snoring, weakness, weight change, sleep problems or change in appetite Eyes Eyes: No blurry vision, change in vision, eye pain or Light sensitivity ENT ENT: No abnormal hearing, ear or mastoid pain, tinnitus, nasal congestion, headache(s), neck pain or sore throat Resp Respiratory: Positive for cough and shortness of breath; No snoring or wheezing Cardio Cardiology: Positive for dyspnea on exertion, lightheadedness and other (leg swelling); No chest pain at rest, chest pain with exertion, excessive sweating, shortness of breath, orthopnea or palpitations Gastro GI: No abdominal pain, change in bowel habits, constipation, cramping, diarrhea,nausea/dyspepsia or vomiting Genitourinary Male: Positive for urinary frequency and Frequent nighttime urination/ nocturia; No difficulty urinating, burning urination, painful urination, urinary incontinence or blood in urine Musc Musculoskeletal: No abnormal gait, joint pain, back pain, limited range of motion, neck pain, numbness, stiffness, tingling or Arthritis Skin Skin: No dry skin, redness, lesions, itchy eyes, rash or wounds Neuro Neurology: Positive for dizziness, memory loss and fainting; No abnormal gait, abnormal hearing, abnormal speech, weakness, frequent falls, headache(s), numbness or tingling Psych Psychiatric: No anxiety, No change in appetite, No depression, Positive for memory loss and No Thoughts of harming yourself/Others Endo Endocrine: No cold intolerance, excessive sweating, fatigue, flushing, heat intolerance, increased thirst/drinking, increased hunger or weight change Aller/Imm Allergy/Immunologic: No itchy eyes, seasonal allergy symptoms, hives or wheezing Giovani/Lymp Hematologic/Lymphatic: No easy bleeding, easy bruising or enlarged lymph nodes Exam Const General: cooperative, healthy appearing, no acute distress, well developed, not diaphoretic and not ill appearing Nutritional Appearance: well nourished Orientation: alert and oriented x3 Limitations: mental status not altered [place] Head: normal to inspection, normocephalic and atraumatic Ears: hearing grossly normal bilaterally Face and sinus: normal facial exam Mouth: oral mucosae normal and moist mucous membranes Teeth and gingiva: dentition normal Throat: posterior oropharynx normal Eyes Conjunctivae: conjunctivae normal Sclera: sclerae normal Pupils: PERRL Chest Chest palpation & inspection: normal inspection of the chest Resp Effort & Inspection: normal respiratory effort, able to speak in complete sentences, no audible wheezes and no cough Auscultation: Bilateral: Clear to Auscultation Cardio Rate: bradycardic Rhythm: regular rhythm Heart Sounds: S1 normal, S2 normal and no murmurs GI Inspection: non-distended Auscultation: normal bowel sounds Palpation: soft and nontender Skin General: no rashes or lesions noted and dry skin Wounds: no wounds Neuro General: patient alert, patient oriented x3 and not confused Cranial Nerves: PERRL Speech: speech normal Extrem General: normal to inspection and no edema Psych Appearance: grossly normal Mental Status: mental status grossly normal Affect: normal affect Attitude: cooperative Results POC A1C POC A1C 6.7 % Last Edit by Dilcia Shi on 07/14/25 14:22 Immunizations Fluad 2024- 65yr up(PF)45 mcg(15 mcgx3)/0.5 mL intramuscular syringe Performing Provider: Kme Davila MD Performing Location: [facility] Administered by: Dilcia Shi on 07/14/25 15:05 Dose Route Admin Location Dispensed Lot Number Expiration Date Pack age NDC NDC Teacher Advisor 45 mcg IM Left Arm (SQ) 0.5 mL [id number] 02/10/26 [id number] [employer]. VIS Given Date VIS Provided VIS Publication Date 07/14/25 Single Vaccine 24 Eligibility Eligibility Date Funding Source Not Applicable Administration Comments: patient tolerated injection well Coding Level of Care Code Off vis,est,level 5 Diagnoses Diet-controlled diabetes mellitus E11.9 Essential (primary) hypertension I10 Anxiety and depression F41.9; F32.A Memory change R41.3 Atherosclerosis of [place] coronary artery of [place] heart without angina pectoris I25.10 [place] vs. transplanted heart: [place] heart Paroxysmal atrial fibrillation I48.0 Urinary frequency R35.0 Immunization due Z23 Time Spent (min) 42 Assessment and Plan Assessment and Plan (1) Diet-controlled diabetes mellitus: Status: Acute Plan: The patient's A1c today was 6.7, which has remained fairly unchanged over the last year. Still no need for medications at this time, however, again discussedthe importance of monitoring carbohydrate and sugar intake. If his A1c increases to above 7, will consider medications at that time. He voiced understanding and was in agreement. The patient's eye exam is up to date and hedoes follow with podiatry. Patient encouraged to complete his labs as previously ordered and he was in agreement. (2) Essential (primary) hypertension: Status: Chronic Plan: Blood pressure shows fair control today. Will continue current management for now and monitor. Discussed monitoring salt intake. (3) Anxiety and depression: Status: Acute Plan: Patient is doing well on his lexapro without problems. He does admit to some symptoms of anxiety and feeling down. He scored 0 on his PHQ at his last officevisit. Will continue current management and monitor. He denies any thoughts ofsuicide. (4) Memory change: Status: Acute Plan: Work up thus far hasn't demonstrated any significant findings. He hasn't seen his warping mill operator recently. Will try to get records. Patient has previously declined seeing a speech therapist to help with word finding. (5) Atherosclerotic heart disease of [place] coronary artery without angina pectoris: Status: Chronic Qualifiers: [place] vs. transplanted heart: [place] heart Qualified Code(s): I25.10 -Atherosclerotic heart disease of [place] coronary artery without angina pectoris Comment: [id number] LAD w/ 4.0 x 12 mm Liberte Stent 09/09/2006; Plan: Stable. Patient follows with cardiology. Will follow up on their findings and recommendations. He recently had a normal stress test. (6) Paroxysmal atrial fibrillation: Status: Acute Comment: Per Event Monitor 06/2025; Plan: Likely related to recent symptoms. Appears regular on exam today. Discussed what cardiology's note said. He is agreeable to trying eliquis, so will order. Encouraged him to call their office for further management. He was in agreement. (7) Urinary frequency: Plan: Patient hasn't noticed much of a difference with the flomax or proscar. He saw urology who didn't feel his prostate was enlarged. Discussed trying an alternative medication like myrebtriq, which he is agreeable to. Will have him hold his flomax and proscar. They were encouraged to call if any problems with the medication change and they were in agreement. (8) Immunization due: Plan: The patient was given a flu shot in the office today, which he tolerated well. The patient is here for a follow up. Plan as above. Medications reviewed with the patient. Routine follow up scheduled. The patient was instructed to call with any concerns or questions before then and they were in agreement. I spent a total of 42 minutes on the date of the service which included preparing to see the patient, [id number] patient care, completing clinical documentation, obtaining and/or reviewing separately obtained history. This excludes separately reportable services. Orders: Orders POC A1C Today E11.9 - Type 2 diabetes mellitus without complications Influenza Immunization Today Z23 - Encounter for immunization Medications: New apixaban (Eliquis) 5 mg PO BID 60 tabs 0RF mirabegron ER (Myrbetriq) 25 mg PO QDAY 30 tabs 0RF On Hold finasteride (Proscar) Hold Comment: Order Changed 5 mg PO DAILY 90 tabs 1RF tamsulosin Hold Comment: Order Changed 0.4 mg PO DAILY 90 caps 1RF Plan Details Follow Up: 3 Months Clinical Quality Measures Falls Risk Screening/Assistive Devices Have you fallen in the past year?: No 07/14/25 3353 <Electronically signed by Kem nunez MD> Date _ Kem Davila MD Cosigner Signature: Date (if applicable) CC: ~ [facility] Work Phone: 1(823) 693-248608-04-2025 Discharge summary [facility] Medical Records Department [address] [place] [address] Emergency Department Summary 05/19/25 MR#: [id number] Acct: [id number] Name: RUSLAN STEPHENS Rep #:[id number] : 1950 74 From: Jayson zavaletaett DO PCP: Dr. Kem Davila MD Status:REG [...] with walking up inclines. 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 but did not inform him of this information. Patient states yesterday he walked up the incline in which he got short of breath. States he sat down. Developeda episode of involuntary muscle sheron/shaking. Was not [...] intact Psych: Cooperative, appropriate mood and affect [facility] Medical History (Reviewed 05/12/25 @ 15:33 by Joseph Link HEALTH SCIENCES MANAGER, HEALTH SCIENCES MANAGER-C) Gout Near syncope Urinary tract infection Obesity History of non-ST elevation myocardial infarction (NSTEMI) (09/09/06) Essential (primary) hypertension Hernia Hyperlipidemia Atherosclerotic heart disease of yomba shoshone coronary artery without angina pectoris Home Medications ?Medication ?Instructions ?Recorded ?Last Taken ?Type aspirin 81 mg chewable tablet 81 mg PO DAILY@0800 /2 12/31 Unknown Rx blood-glucose meter #1 ea [...] (Reviewed 05/12/25 @ 15:33 by Joseph Link HEALTH SCIENCES MANAGER, HEALTH SCIENCES MANAGER-C) Father Myocardial infarction CAD (coronary artery disease) Mother Hx of CABG CAD (coronary artery disease) Brother Hypertension Brother Hypertension Surgical History (Reviewed 05/12/25 @ 15:33 by Joseph Link HEALTH SCIENCES MANAGER, HEALTH SCIENCES MANAGER-C) Cataract extraction status H/O wrist surgery History of back surgery History of herniorrhaphy History of knee replacement (2017) History of left heart catheterization (11/27/17) H/O knee surgery History of coronary artery stent placement (09/09/06) Social History household members: spouse current occupational status: employed 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 but did not inform him [...] On chart review, patient was seen in thecardiology office on 05/12/2025. His last echocardiogram was from 2021 that showed left ventricular s ystolic function normal. EF 55%. Stage II diastolic dysfunction. He had a stress test in 2021 with no obvious ischemia. His last cardiac cath [id number] showed mild CAD with no high-grade obstructive disease. Laboratory workup ordered including chest x-ray. CBC without leukocytosis or anemia. BMP showsmild renal insufficiency with a creatinine of 1.21. [...] confirmed understand the plan. Patient stable to dischargehome. EKG: Interpreted by me/EM physician: Sinus bradycardia [...] % (Auto) 66.4 Lymph % (Auto) 19.0 [place] % (Auto) 11.5 H Eos % (Auto) [...] Clarity Clear Urine pH 6.0 Ur Specific [place] 1.020 Urine Protein 30 H Urine Glucose [...] 09:30 IMPRESSION: NO ACUTE FINDINGS. Reading Location: [id number] Discharge Plan Triage Chief Complaint: Shortness of [...] PO DAILY Qty: 90 1RF calcium carb-D3-mag [id number] 333 mg-200 unit -133 mg-5 mg tablet [...] MD [Primary Care Provider] - Print Language: Indonesian What to do if you have Problems For any increased pain, shortness of breath, bleeding, nausea or vomiting, chestpain, or any unexpected problems, contact your Primary Care Provider. Call [facility] ([phone]) or report tothe closest Emergency Room. Call 911 if necessary. 05/19/25 1148 Cosigner Signature (if applicable): CC: Dr. Kem Davila MD ~ Signed [facility]08-04-2025 Radiology Diagnostic study note [facility] Imaging Services [address], [place] [address] Chest PA and Lateral MR#: [id number] Acct: [id number] Name: RUSLAN STEPHENS Rep #: [id number] : 1950 M 74 From: Reinaldo Dick MD PCP: Dr. Kem Davila MD Status: REG ER Study:Chest PA and Lateral Date of Exam: 05/19/25 Exam# [id number] Ordering Dr: Jayson Lerner DO PROCEDURE: CHEST [...] Lateral IMPRESSION: NO ACUTE FINDINGS. Reading Location: [id number] CC: Dr. Kem Davila MD; Dr. Jayson Ellison DO ~ Individual Pension Adviser: Signed [facility]07-28-2025 Evaluation note* Diagnosis Onset Date Resolution Status Admit Date Atherosclerotic heart diseas e of y[place] coronary artery without angina pectoris chronic May 12, 2025 2:59pm Essential (primary) hypertension chr onic May 12, 2025 2:59pm Hyperlipidemia chronic May 12, 2025 2:59pm [facility] Work Phone: 1([phone]) 113-103307-28-2025 Evaluation note* Diagnosis Onset Date Resolution Status Admit Date Atherosclerotic heart diseas e of [place] coronary artery without angina pectoris chronic May 12, 2025 2:59pm Essential (primary) hypertension chr onic May 12, 2025 2:59pm Hyperlipidemia chronic May 12, 2025 2:59pm Bradycardia acute May 20, 025 10:17am Exertional dyspnea acute May 20, 2025 10:17am Atherosclerotic heart diseas e of [place] coronary artery without angina pectoris chronic May 20, 2025 10:17am Essential (primary) hypertension chr onic May 20, 2025 10:17am Hyperlipidemia chronic May 10:17am [facility] Work Phone: 1(879) 274-577607-28-2025 Evaluation note* Diagnosis Onset Date Resolution Status Admit Date Atherosclerotic heart diseas e of [place] coronary artery without angina pectoris chronic May 12, 2025 2:59pm Essential (primary) hypertension chr onic May 12, 2025 2:59pm Hyperlipidemia chronic May 12, 2025 2:59pm Bradycardia acute May 20, 025 10:17am Atherosclerotic heart diseas e of [place] coronary artery without angina pectoris chronic May 20, 2025 10:17am Essential (primary) hypertension chr onic May 20, 2025 10:17am Hyperlipidemia chronic May 10:17am Exertional dyspnea inactive May 20, 2025 10:17am [facility] Work Phone: 1(792) 125-576007-28-2025 Evaluation note* Diagnosis Onset Date Resolution Status Admit Date Atherosclerotic heart diseas e of [place] coronary artery without angina pectoris chronic April 2:59pm Essential (primary) hypertension chronic May 12, 2025 2:59pm Hyperlipidemia chronic May 12, 2025 2:59pm Bradycardia acute May 20, 025 10:17am Atherosclerotic heart diseas e of [place] coronary artery without angina pectoris chronic May 202024 10:17am Essential (primary) hypertension chronic May 20, 2025 10:17am Hyperlipidemia chronic May 10:17am Exertional dyspnea inactive May 20, 2025 10:17am Anxiety and depression acute Se ptember 2024 1:49pm Diet-controlled diabetes mellitus acute July 14, 2025 1:49pm Memory change acute June 172024 1:49pm Paroxysmal atrial fibrillation acute July 14, 2025 1:49pm Atherosclerotic heart diseas e of [place] coronary artery without angina pectoris chronic Septembe r 2024 1:49pm Essential (primary) hypertension chronic July 14, 2025 1:49pm Immunization due noneactive Septembe r 2024 1:49pm Urinary frequency noneactive Septemb er 2024 1:49pm [facility] Work Phone: 1(736) 173-758807-28-2025 Progress [facility] [place] [address] OFFICE VISIT Date of Service: 05/12/25 MR#: [id number] Acct: [id number] Name: RUSLAN STEPHENS Rep #: [id number] : 1950 Provider: LAMAR Link Age/Sex: 74/M Location: [facility] Status: Signed HPI HPI History of Present Illness Details: RUSLAN STEPHENS, is a 74 M who presents to the office today for a follow-up visit.? He is a gentleman with a history of coronary artery disease status post bare-metal stenting to the proximal left anterior descending artery in 2005 at [facility].? 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 Accompanied by: Is patient in pain?: No Allergies No Known Allergies Allergy (Verified 05/12/25 15:05) Medications ?Medication ?Instructions ?Recorded ?Confirmed ?Type aspirin 81 mg chewable tablet 81 mg PO DAILY@0800 05/2 305/12/25 Rx blood-glucose meter #1 ea 11/10/22 11/25/24 [...] (Reviewed 05/12/25 @ 15:33 by Joseph Link HEALTH SCIENCES MANAGER, HEALTH SCIENCES MANAGER-C) Gout Near syncope Urinary tract infection Obesity History of non-ST elevation myocardial infarction (NSTEMI) (09/09/06) Essential (primary) hypertension Hernia Hyperlipidemia Atherosclerotic heart disease of [place]osh[place] coronary artery without angina pectoris Surgical History Cataract extraction status H/O wrist surgery History of back surgery History of herniorrhaphy History of knee replacement (2017) History of left heart catheterization (11/27/17) H/O knee surgery History of coronary artery stent placement (09/09/06) Family History (Reviewed 05/12/25 @ 15:33 by Joseph Link HEALTH SCIENCES MANAGER, HEALTH SCIENCES MANAGER-C) Father Myocardial infarction CAD (coronary artery disease) Mother Hx of CABG CAD (coronary artery disease) Brother Hypertension Brother Hypertension Social History (Reviewed 05/12/25 @ 15:33 by Joseph Link HEALTH SCIENCES MANAGER, HEALTH SCIENCES MANAGER-C) household members: spouse current occupational status: employed [...] syncope, frequent falls, headache(s),weakness or blurry vision [place] Hematologic/Lymphatic: Positive for easy bruising; Negative for [...] 05/09/2022 Interpretation There were a total of [id number] beats recorded over the 24 hours. Average [...] and Plan (1) Atherosclerotic heart disease of [place]osh[place] coronary artery without angina pectoris: Status: Chronic Qualifiers: Pala vs. transplanted heart: [place] shoshone heart Qualified Code(s): I25.10 - Atherosclerotic heart disease of [place]osh[place] coronary artery without angina pectoris Comment: WED-BTL-Fwec LAD w/ 4.0 x 12 mm Liberte [...] Code Off vis,est,level 4 Diagnoses Atherosclerosis of [place] coronary artery of [place] heart without angina pectoris I25.10 Pala vs. transplanted heart: [place] shoshone heart Essential (primary) hypertension I10 Pure hypercholesterolemia E78.00; E78.0 Hyperlipidemia type: pure hypercholesterolemia Coding Level of Care Code Off vis,est,level 4 Diagnoses Atherosclerosis of [place]osh[place] coronary artery of [place] shosh[place] heart without angina pectoris I25.10 Pala vs. transplanted heart: [place] shoshone heart Essential (primary) hypertension I10 Pure hypercholesterolemia E78.00; E78.0 Hyperlipidemia type: pure hypercholesterolemia Clinical Quality Measures Falls Risk Screening/Assistive Devices Have you fallen in the past year?: No Cardiac Ejection fraction %: 55 05/12/25 1538 P HEALTH SCIENCES MANAGER-C> Date _ Joseph Devlin Signature: Date (if applicable) CC: Dr. Kem Davila MD ~ [facility]07-28-2025 Progress note Author Joseph Link [facility] Note Date/Time May 12, 2025 3:38 pm [facility] [place] [address] OFFICE VISIT Date of Service: 05/12/25 MR#: [id number] Acct: [id number] Name: RUSLAN STEPHENS Rep #: [id number] : 1950 Provider: LAMAR Link Age/Sex: 74/M Location: [facility] Status: Signed HPI HPI History of Present Illness Details: RUSLAN STEPHENS, is a 74 M who presents to the office today for a follow-up visit.? He is a gentleman with a history of coronary artery disease status post bare-metal stenting to the proximal left anterior descending artery in 2005 at [facility].? 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 Accompanied by: Is patient in pain?: No Allergies No Known Allergies Allergy (Verified 05/12/25 15:05) Medications ?Medication ?Instructions ?Recorded ?Confirmed ?Type aspirin 81 mg chewable tablet 81 mg PO DAILY@0800 05/2 305/12/25 Rx blood-glucose meter #1 ea 11/10/22 11/25/24 [...] (Reviewed 05/12/25 @ 15:33 by Joseph Link HEALTH SCIENCES MANAGER, HEALTH SCIENCES MANAGER-C) Gout Near syncope Urinary tract infection Obesity History of non-ST elevation myocardial infarction (NSTEMI) (09/09/06) Essential (primary) hypertension Hernia Hyperlipidemia Atherosclerotic heart disease of y[place] shosh[place] coronary artery without angina pectoris Surgical History [...] (Reviewed 05/12/25 @ 15:33 by Joseph Link HEALTH SCIENCES MANAGER, HEALTH SCIENCES MANAGER-C) household members: spouse current occupational status: employed current occupation: [employer] Smoking Status: Never smoker Electronic Cigarette Use: [...] 05/09/2022 Interpretation There were a total of [id number] beats recorded over the 24 hours. Average [...] and Plan (1) Atherosclerotic heart disease of [place]osh[place] coronary artery without angina pectoris: Status: Chronic Qualifiers: Pala vs. transplanted heart: [place] shoshone heart Qualified Code(s): I25.10 -Atherosclerotic heart disease of [place]osh[place] coronary artery without angina pectoris Comment: QLU-PSY-Qsra LAD w/ 4.0 x 12 mm Liberte [...] Code Off vis,est,level 4 Diagnoses Atherosclerosis of [place] coronary artery of [place]osh[place] heart without angina pectoris I25.10 Pala vs. transplanted heart: [place] shoshone heart Essential (primary) hypertension I10 Pure hypercholesterolemia E78.00; E78.0 Hyperlipidemia type: pure hypercholesterolemia Coding Level of Care Code Off vis,est,level 4 Diagnoses Atherosclerosis of [place]osh[place] coronary artery of [place] shosh[place] heart without angina pectoris I25.10 Pala vs. transplanted heart: [place] shoshone heart Essential (primary) hypertension I10 Pure hypercholesterolemia E78.00; E78.0 Hyperlipidemia type: pure hypercholesterolemia Clinical Quality Measures Falls Risk Screening/Assistive Devices Have you fallen in the past year?: No Cardiac Ejection fraction %: 55 05/12/25 9228 <Electronically signed by Joseph NEWTON> Date _ [facility] HEALTH SCIENCES MANAGER HEALTH SCIENCES MANAGER-C [place] Signature: Date (if applicable) CC: Dr. Kem Davila MD ~ [facility] Work Phone: 1(490) 907-333907-29-2024 NoteHNO ID: [id number] Author: EMELI HOLLINS MD Service: ? Author [...] 32.72 kg/m? GEN: Pleas (more content not included)...[facility]07-29-2024 History of Present illness Narrative* Emeli [...] per tablet Take by mouth. 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 Seen by cerebrovascular medicine and advised MRI brain and a follow-up visit in a year. -Okay to continue aspirin. Remain off of Plavix. Follow-Up - 6 months. Needs MOCA next visit I spent a total of 30 minutes on the date of the service which included preparing to see the patient, enoj-yl-quej patient care, completing clinical documentation, obtaining and/or reviewing separately obtained history, performing a medically appropriate examination, counseling and educating the pat ient/family/caregiver, ordering medications, tests, or procedures, and communicating with other HCPs (not separately reported). Voice recognition software was used to compose this office note. Please excuse any unintended typographical errors Emeli Hollins M.D Geriatric Medicine [facility] documented in this encounterAcmc [facility]01-29-2024 NoteHNO ID: [id number] Author: EMELI HOLLINS MD Service: ? Author [...] as appropriate. Please see relevant sections in [facility] EHR for details Current Medications [...] appropriately. No dysa (more content not included)... [facility]06-19-2023 Instructions* Patient Instructions* Emeli Hollins MD [...] have benefit for memory. documented in this encounterAcmc Healthcare [facility]06-19-2023 History of Present illness Narrative* Emeli Hollins [...] (H) 4.3 - 5.6 % Final Comment: [place] [employer] guidelines indicate that patients with [...] (H) 4.3 - 5.6 % Final Comment: [place] Diabetes [employer] guidelines indicate that patients with [...] which included preparing to see the patient, vnlv-go-wpyt patient care, completing clinical documentation, obtaining and/or reviewing separately obtained history, performing a medically appropriate examination, counseling and educating the pat ient/family/caregiver, ordering medications, tests, or procedures, and communicating with other HCPs (not separately reported). Voice recognition software was used to compose this office note. Please excuse any unintended typographical errors Emeli Hollins MD Geriatric Medicine [facility] 04/03/2023 11:30 AM CC: Referring Physician: SELF PCP: Ulices Taveras [address] [place] [address] Patient Entered Data: Patient-Reported No flowsheet data [...] No flowsheet data found. documented in this encounterAcmc [facility]02-24-2023 Instructions* Patient Instructions* Jay Miranda MD - [...] year after MRI brain. documented in this encounterAcmc [facility]02-24-2023 History of Present illness Narrative* Jay Miranda MD - 12/09/2022 9:00 AM EST Images from the original note were not included. [facility] Initial Visit Consultation is requested by: Dr. Emeli Hollins PCP: Ulices Taveras [address] [place] [address] Emeli Hollins for [...] in October 2022. 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 Coordination: Rapid alternating movements symmetric bilaterally. Xhmlgx-dk-lydx, uaff-hd-mbyj without dysmetria bilaterally. Reflexes: 2+/4 reflexes symmetric [...] which included preparing to see the patient, help-sz-tljh patient care, completing clinical documentation, obtaining and/or reviewing separately obtained history, performing a medically appropriate examination, counseling and educating the patient/family/caregiver, ordering medications, tests, or procedures, communicating with other HCPs (not separately reported), independently interpreting results (not separately reported), and communicatingresults to the patient/family/caregiver SEEMA Miranda MD. MPH Staff, Cerebrovascular Division [facility] Neurological Protection CC No referring provider defined for this encounter. Ulices Taveras [address] [phone] documented in this encounterAcmc Healthcare [facility]02-15-2023 History of Present illness Narrative* Maricel Guerrero - 11/30/2022 9:47 AM EST 11/30 Faxed signed plan of care and scanned that and fax confirmation into scanned documents. LM documented in this encounterAcmc Healthcare [facility]01-27-2023 Miscellaneous Notes* Telephone Encounter - Prisca Cazares RN - 11/11/2022 1:15 PM EST Per email from Dr. Miranda, Can you please help with a new patient visit with me for this patient? Referral by a colleague. Called and spoke with patient's spouse, Mirian. Accepted an in person appointment on 12/09 @ [address] Miradna aware. Prisca Cazares, RN documented in this encounterAcmc Healthcare [facility]01-27-2023 Miscellaneous Notes* Telephone Encounter - Emeli Hollins [...] after that is done. documented in this encounterAcmc Healthcare [facility]01-24-2023 History of Present illness Narrative* RT Huey(R) [...] 08, 2022 10:11 AM documented in this encounterAcmc Healthcare System [facility]igh01-16-2023 Instructions* Patient Instructions* Emeli Hollins MD - [...] that have benefit for memory. For neuropsychological: [phone] For MRI: [phone] documented in this encounterAcmc Healthcare System [facility]01-16-2023 History of Present illness Narrative* Emeli Hollins MD - 10/31/2022 10:30 AM EST Images from the original note were not included. 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 is worried about [...] NO Feeling tired during the day: YES [place] Cognitive Exam (MOCA): 20 /30 Visuospatial/Executive: 3 [...] I, Transportation:I, Medications: {I, Handle Finances: I. (Sodus scale): 8 Ambulation: 5. Can ambulate independently [...] vision impairment and wears glasses Follows with clinical nutrition manager:YES Hearing - Hearing aid : Hearing impairment, [...] mellitus), type 2 (HCC) Gout History of AK (myocardial infarction) Hypercholesterolemia Hypertension Ischemic heart disease [...] End Date , Taking? Yes, Authorizing Provider Ulicse Taveras MD Medication omeprazole (PRILOSEC) 40 mg [...] No Known Allergies Social History: Primary language: Indonesian Marital Status: Living situation: Home w/ Spouse Caregiver stress level:? Moderate Socially engaged? 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 Campbell - possible EPI [...] mellitus), type 2 (HCC) Gout History of [place] (myocardial infarction) Hypercholesterolemia Hypertension Ischemic heart disease [...] Past Histories independently gathered by the clinical client support consultant and the remaining scribed note accurately describes [...] 19, 2022 4:17 PM documented in this encounterAcmc Healthcare System [facility]igh09-06-2022 Hospital Discharge instructions Additional Instructions Recommend drinking 1 glass of MiraLAX every 1-2 hours until you have results. The following day recommend MiraLAX 3 times a day as long as you are on the pain medicine.[facility] Work Phone: 1(987) 195-860008-22-2022 NoteHNO ID: [id number] Author: Ulices Taveras MD Service: ? Author Type: Physician Type: Progress Notes Filed: 06/06/2022 11:18 AM Note Text: This note was created using Shangbyriter. Subjective Ruslan Stephens is a 71 year [...] received cardiac clearance. He is cleared for procedure.[facility]08-22-2022 NoteHNO ID: [id number] Author: Ulices Taveras MD Service: ? Author Type: Physician Type: Progress Notes Filed: 06/06/2022 11:18 AM Note Text: This note was created using Flowboardter. Subjective Ruslan Stephens is a 71 year [...] and Affect: Mood normal. Behavior: Behavior normal. [facility]08-22-2022 History of Present illness Narrative* Ulices Taveras MD - 06/06/2022 11:16 AM EDT This note was created using Shangbyriter. Subjective Ruslan Stephens is a 71 year [...] AM EDT This note was created using Shangbyriter. Subjective Ruslan Stephens is a 71 year [...] normal. Assessment and Plan documented in this encounterAcmc [facility]07-25-2022 NoteHNO ID: [id number] Author: Ulices Taveras MD Service: ? Author Type: Physician Type: Progress Notes Filed: 05/09/2022 1:59 PM Note Text: This note was created using Flowboardter. Subjective Ruslan Stephens is a 71 year [...] weight. Reduce stress. Recheck A1c in 3 months.[facility]07-25-2022 History of Present illness Narrative* Ulices Taveras MD - 05/09/2022 12:10 PM EDT This note was created using Shangbyriter. Subjective Ruslan Stephens is a 71 year [...] A1c in 3 months. documented in this encounterAcmc [facility]07-14-2022 Miscellaneous Notes* Telephone Encounter - Ulices Taveras MD - 04/28/2022 4:55 PM EDT [facility] * Telephone Encounter - Tequila Rodriguez LPN - 04/28/2022 3:34 PM EDT Pt called in asking to be referred to pain management. documented in this encounterAcmc Healthcare [facility]07-11-2022 NoteHNO ID: [id number] Author: Ulices Taveras MD Service: ? Author Type: Physician Type: Progress Notes Filed: 04/25/2022 6:00 PM Note Text: This note was created using NoteWriter. Wendi Clementinner is a 71 year old male. HPI [...] daily for 7 days. Moist heat. Stretching exercises.[facility]07-11-2022 History of Present illness Narrative* Ulices Taveras MD - 04/25/2022 5:57 PM EDT This note was created using [employer]. Subjective Ruslan Stephens is a 71 year [...] Moist heat. Stretching exercises. documented in this encounterAcmc Healthcare [facility]07-11-2022 Nurse Note* Kaila Gary LPN - 04/25/2022 4:55 PM EDT Pt had went to [facility] and had an xray that didn't show anything. Pt was prescriped medrol pk onThursday prescribed flexaril 5 mg tab Pt still has complaints of 5/10 pain documented in this encounterAcmc Healthcare [facility]igh04-27-2022 History of Present illness Narrative* Pernell Acuña, RT(R) - 02/09/2022 10:30 AM EDT Radiology Service [...] be removed by MRI nurse) SIGNED BY: Pernell Acuña RT(R) / MRB4 February 09, 2022 12:09 PM [...] 09, 2022 9:44 AM documented in this encounterAcmc Healthcare [facility]igh04-27-2022 History of Present illness Narrative* Eufemia Arteaga [...] By Eufemia Arteaga RN documented in this encounterAcmc Healthcare [facility]igh01-31-2022 Miscellaneous Notes* Telephone Encounter - Anjelica Ross Pss - 2021 3:[address] Oconnell Medical Records including: H&P, CT scan, Pathology report, colonoscopy and labs have been received and uploaded to Patient's chart for your review. Anjelica Ford) Research Tech II DDSI documented in this encounterAcmc Healthcare [facility]igh12-12-2019 History of Past illness Narrative* Problem Noted Date Resolved Date Sepsis 09/26/2019 06/26/2022 documented as of this encounter (statuses as of 07/04/2022) [facility] History of Past illness Narrative* Problem Noted Date Resolved Date Sepsis 09/26/2019 06/26/2022 documented as of this encounter (statuses as of 07/20/2022) [facility] History of Past illness Narrative* Problem Noted Date Resolved Date Sepsis 09/26/2019 06/26/2022 documented as of this encounter (statuses as of 08/22/2022) [address]12-2019 History of Past illness Narrative* Problem Noted Date Resolved Date Sepsis 09/26/2019 06/26/2022 documented as of this encounter (statuses as of 08/26/2022) [address]12-2019 History of Past illness Narrative* Problem Noted Date Resolved Date Sepsis 09/26/2019 06/26/2022 documented as of this encounter (statuses as of 10/25/2022) [address]12-2019 History of Past illness Narrative* Problem Noted Date Resolved Date Sepsis 09/26/2019 06/26/2022 documented as of this encounter (statuses as of 10/31/2022) [address]12-2019 History of Past illness Narrative* Problem Noted Date Resolved Date Sepsis 09/26/2019 06/26/2022 documented as of this encounter (statuses as of 11/01/2022) [address]12-2019 History of Past illness Narrative* Problem Noted Date Resolved Date Sepsis 09/26/2019 06/26/2022 documented as of this encounter (statuses as of 11/09/2022) [address]12-2019 History of Past illness Narrative* Problem Noted Date Resolved Date Sepsis 09/26/2019 06/26/2022 documented as of this encounter (statuses as of 11/11/2022) [address]12-2019 History of Past illness Narrative* Problem Noted Date Resolved Date Sepsis 09/26/2019 06/26/2022 documented as of this encounter (statuses as of 11/11/2022) [address]12-2019 History of Past illness Narrative* Problem Noted Date Resolved Date Sepsis 09/26/2019 06/26/2022 documented as of this encounter (statuses as of 11/30/2022) [address]-2019 History of Past illness Narrative* Problem Noted Date Resolved Date Sepsis 09/26/2019 06/26/2022 documented as of this encounter (statuses as of 12/08/2022) [address]12-2019 History of Past illness Narrative* Problem Noted Date Resolved Date Sepsis 09/26/2019 06/26/2022 documented as of this encounter (statuses as of 12/27/2022) [facility] History of Past illness Narrative* Problem Noted Date Resolved Date Sepsis 09/26/2019 06/26/2022 documented as of this encounter (statuses as of 04/06/2023) [facility] Evaluation note* Diagnosis Onset Date Resolution Status Atherosclerotic heart diseas e of [place] coronary artery without angina pectoris chronic Essential (primary) hypertension chronic Hyperlipidemia chronic History of coronary artery stent placement September 092005 resolved [facility] Work Phone: 1(143) 771-447011-25-2006 Evaluation note* Diagnosis Onset Date Resolution Status Near syncope acute Shortness of breath acute Essential (primary) hypertension chronic History of coronary artery stent placement September 092005 resolved [facility] Work Phone: Chief complaint+Reason for visit Narrative* Chief Complaint 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 but did not inform him [...] intact Psych: Cooperative, appropriate mood and affect [facility] Medical History (Reviewed 05/12/25 @ 15:33 by Joseph Link HEALTH SCIENCES MANAGER, HEALTH SCIENCES MANAGER-C) Gout Near syncope Urinary tract infection Obesity History of non-ST elevation myocardial infarction (NSTEMI) (09/09/06) Essential (primary) hypertension Hernia Hyperlipidemia Atherosclerotic heart disease of [place] coronary artery without angina pectoris Home Medications ?Medication ?Instructions ?Recorded ?Last Taken ?Type aspirin 81 mg chewable tablet 81 mg PO DAILY@0800 /12/31 Unknown Rx blood-glucose meter #1 ea 11/10/22 [...] (Reviewed 05/12/25 @ 15:33 by Joseph Link HEALTH SCIENCES MANAGER, HEALTH SCIENCES MANAGER-C) Father Myocardial infarction CAD (coronary artery disease) Mother Hx of CABG CAD (coronary artery disease) Brother Hypertension Brother Hypertension Surgical History (Reviewed 05/12/25 @ 15:33 by Joseph Link HEALTH SCIENCES MANAGER, HEALTH SCIENCES MANAGER-C) Cataract extraction status H/O wrist surgery History of back surgery History of herniorrhaphy History of knee replacement (2017) History of left heart catheterization (11/27/17) H/O knee surgery History of coronary artery stent placement (09/09/06) Social History (Reviewed 05/12/25 @ 15:33 by Joseph Link HEALTH SCIENCES MANAGER, HEALTH SCIENCES MANAGER-C) household members: spouse current occupational status: employed [...] with walking up inclines. 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 but did not inform him [...] no obvious ischemia. His last cardiac cath [id number] showed mild CAD with no high- grade [...] % (Auto) 66.4 Lymph % (Auto) 19.0 [place] % (Auto) 11.5 H Eos % (Auto) [...] Clarity Clear Urine pH 6.0 Ur Specific [place] 1.020 Urine Protein 30 H Urine Glucose [...] 09:30 IMPRESSION: NO ACUTE FINDINGS. Reading Location: [id number] Discharge Plan Triage Chief Complaint: Shortness of [...] PO DAILY Qty: 90 1RF calcium carb-D3-mag [id number] 333 mg-200 unit -133 mg-5 mg tablet [...] MD [Primary Care Provider] - Print Language: Indonesian What to do if you have Problems For any increased pain, shortness of breath, bleeding, nausea or vomiting, chestpain, or any unexpected problems, contact your Primary Care Provider. Call [facility] ([phone]) or report to the closest Emergency Room. Call 911 if necessary. 05/19/25 1148 <Electronically signed by Jayson Ellison DO> Cosigner Signature (if applicable): CC: Dr. Kem Davila MD ~ Signed [facility] Work Phone: Evaluation note* Diagnosis Exocrine pancreatic insufficiency Other specified disease of pancreas documented in this encounter [facility]Evaluation noteNo assessment information availableWDelaware County Hospital Work Phone: Evaluation note* Diagnosis Right hip pain- Primary Pain in joint, pelvic region and thigh Osteoarthritis of both hips, unspecified osteoarthritis type documented in this encounter [facility] Work Phone: Evaluation note* Diagnosis Acute midline low back pain with right-sided sciatica- Primary documented in this encounter [facility] note* Diagnosis Bilateral low back pain with sciatica, sciatica laterality unspecified, unspecified chronicity- Primary documented [facility] this [facility]* Diagnosis Primary hypertension- Primary Unspecified essential hypertension Mixed hyperlipidemia Ischemic heart disease Chronic ischemic heart disease, unspecified Hx of myocardial infarction Old myocardial infarction Diabetes mellitus type II (HCC) Idiopathic gout, unspecified chronicity, unspecified site Anxiety Anxiety state, unspecified documented in this encounter [facility]* Diagnosis Preoperative clearance- Primary Preoperative examination, unspecified documented in this encounter 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* Diagnosis Cognitive impairment, mild, so stated- Primary Mild cognitive impairment, so stated Fall, initial encounter Gait disturbance Abnormality of gait Anxiety Anxiety state, unspecified Bilateral hearing loss, unspecified hearing loss type Impacted cerumen of left ear Impacted cerumen documented in this encounter [facility]* Diagnosis Cognitive impairment, mild, so stated Mild cognitive impairment, so stated documented in this encounter [facility]* Diagnosis Cerebral infarction, unspecified mechanism (HCC)- Primary White matter abnormality on MRI of brain Nonspecific (abnormal) findings on radiological and other examination of skull and head documented in this encounter [facility]* Diagnosis Cognitive impairment, mild, so stated- Primary Mild cognitive impairment, so stated documented in this encounter [facility]* Diagnosis Onset Date Resolution Status Immunization due noneactive [facility] Work Phone: Evaluation note* Diagnosis Word finding difficulty- Primary Problems with communication (including speech) Gait disturbance Abnormality of gait Anxiety Anxiety state, unspecified documented in this encounter [facility]* Diagnosis Onset Date Resolution Status Admit Date Atherosclerotic heart diseas e of [place] coronary artery without angina pectoris chronic May 12, 2025 2:59pm Essential (primary) hypertension chr onic May 12, 2025 2:59pm Hyperlipidemia chronic May 12, 2025 2:59pm [facility] Work Phone: Hospital Discharge instructions* Instructions* Pedro Luis Diggs MD - 04/23/2022 Please follow-up with your specialist at [facility]. If the symptoms worsen or persist please return back to the emergency department. documented in this [facility] Work Phone: Hospital Discharge instructionsAdditional Instructions Follow-up with cardiology and primary care physician. Return back to ED if symptoms change or worsen.[facility] Work Phone: Reason for referral (narrative)No reason for referral information availableSierra [facility] Work Phone: Summary Purpose Family History Relationship Condition Age at Onset Recorded Date/T ivanna father Myocardial infarction Unknown Coronary artery disease Unknown mother History of coronary artery bypass surgery Unknown brother Hypertension Unknown Advance Directives Advance Directive Response Recorded Date/ Time Advance Directives No November 10:11am Living Will No December 19, 2021 3:28am Power of Cell Plasterer No December 19 2 3:28am Documents on File Type Date Recorded 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 Outbound 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 Yes May 19, 2025 9:29am Advance Directives No November 10:11am Chief Complaint and Reason for Visit Chief Complaint Admit Date 1 Y FU May 12, 2025 2:59 pm DIZZINESS May 19, 2025 8:5 4am Reason for Visit Admit Date Atherosclerotic heart diseas e of [place] coronary artery without angina pectoris May 12, 2025 2:59pm Essential (primary) hypertension May 122024 2:59pm Hyperlipidemia May 12, 2025 2:59 pm Chief Complaint 1 Y FU - call home p maria luisa abd pain Z95.5 I25.10 I25.2/LEXISCAN Z95.5 I25.10 I25.2/LEXISCAN Reason for Visit Atherosclerotic hear t disease of [place] coronary artery without angina pectoris Essential (primary) [...] DIZZINESS May 19, 2025 8:5 4am S/P [facility] 05/19May 20, 2025 10: 17am Reason for Visit Admit Date Atherosclerotic heart diseas e of [place] coronary artery without angina pectoris May 12, 2025 2:59pm Essential (primary) hypertension May 122024 2:59pm Hyperlipidemia May 12, 2025 2:59 pm Bradycardia May 20, 2025 10: 17am Exertional dyspnea May 20, 2025 10: 17am Atherosclerotic heart diseas e of [place] coronary artery without angina pectoris May 20, 2025 10:17am Essential (primary) hypertension May 20, 2025 10:17am Hyperlipidemia May 20, 2025 10: 17am Chief Complaint Admit Date 1 Y FU May 12, 2025 2:59 pm DIZZINESS May 19, 2025 8:5 4am S/P [facility] 05/19May 20, 2025 10: 17am Other forms of dyspnea May 21, 2025 6:00am R06.09 - Other forms of dyspnea May 162024 9:08am Reason for Visit Admit Date Atherosclerotic heart diseas e of [place] coronary artery without angina pectoris May 12, 2025 2:59pm Essential (primary) hypertension May 122024 2:59pm Hyperlipidemia May 12, 2025 2:59 pm Bradycardia May 20, 2025 10: 17am Atherosclerotic heart diseas e of [place] coronary artery without angina pectoris May 20, 2025 10:17am Essential (primary) hypertension May 20, 2025 10:17am Hyperlipidemia May 20, 2025 10: 17am Exertional dyspnea May 20, 2025 10: 17am Chief Complaint Admit Date 1 Y May 12, 2025 2:59 pm DIZZINESS May 19, 2025 8:5 4am S/P [facility] 05/19May 20, 2025 10: 17am Other forms of dyspnea May 21, 2025 6:00am R06.09 - Other forms of dyspnea May 162024 9:08am DYSPNEA June 09, 2025 8: 23am Chief Complaint Admit Date 1 Y FU May 12, 2025 2:59 pm DIZZINESS May 19, 2025 8:5 4am S/P [facility] 05/19May 20, 2025 10: 17am Other forms of dyspnea May 21, 2025 6:00am R06.09 - Other forms of dyspnea May 162024 9:08am DYSPNEA June 09, 2025 8: 23am DYSPNEA June 09, 2025 8: 37am Syncope and collapse June 20, 2025 9:51am Chief Complaint Admit Date 1 Y May 12, 2025 2:59 pm DIZZINESS May 19, 2025 8:5 4am S/P [facility] 05/19May 20, 2025 10: 17am Other forms of dyspnea May 21, 2025 6:00am R06.09 - Other forms of dyspnea May 162024 9:08am DYSPNEA June 09, 2025 8: 23am DYSPNEA June 09, 2025 8: 37am Syncope and collapse June 20, 2025 9:51am SYNCOPE AND COLLAPSE June 28 9:04am 6 M FU July 14, 2025 1:49pm Reason for Visit Admit Date Atherosclerotic heart diseas e of [place] coronary artery without angina pectoris May 12, 2025 2:59pm Essential (primary) hypertension May 122024 2:59pm Hyperlipidemia May 12, 2025 2:59 pm Bradycardia May 20, 2025 10: 17am Atherosclerotic heart diseas e of [place] coronary artery without angina pectoris May 20, 2025 10:17am Essential (primary) hypertension May 20, 2025 10:17am Hyperlipidemia May 20, 2025 10: 17am Exertional dyspnea May 20, 2025 10: 17am Anxiety and depression July 14, 2 025 1:49pm Diet-controlled diabetes mellitus Septem keyonna 2024 1:49pm Memory change July 14, 2025 1:49pm Paroxysmal atrial fibrillation July 14, 2025 1:49pm Atherosclerotic heart diseas e of [place] coronary artery without angina pectoris July 14, 2025 1:49pm Essential (primary) hypertension Septemb er 2024 1:49pm Immunization due July 14, 2025 1:49pm Urinary frequency July 14, 2025 1:49pm Chief Complaint Admit Date 1 Y FU May 12, 2025 2:59 pm DIZZINESS May 19, 2025 8:5 4am S/P [facility] 8/4 May 20, 2025 10: 17am Other forms of dyspnea May 21, 2025 6:00am R06.09 - Other forms of dyspnea May 162024 9:08am DYSPNEA June 09, 2025 8: 23am DYSPNEA June 09, 2025 8: 37am Syncope and collapse June 20, 2025 9:51am 30 DAY MONITOR June 28, 2025 9:00am SYNCOPE AND COLLAPSE June 28 9:04am 6 M FU July 14, 2025 1:49pm PE/NON DOT DRUG/DOMETIC July 25 2:12pm Reason for Referral Specialty Diagnoses / Procedures Referred By Darryl t Referred To Contact MR IMAGING Diagnoses Exocrine pancreatic insufficiency Procedures MRI PANCREAS FUNCTION WO/W IVCON MRI ABDOMEN W/O & W/CONTRAST MATERIAL Azam Oconnell MD [address] [place] [address] Mr Imaging Referral ID Status Reason Start Date Expiration Date V isits Requested Visits Authorized [id number] Closed Auto-Generate d Referral 12/15/2021 01/14/2023 1 1 Specialty Diagnoses / Procedures Referred By Contac t Referred To Contact [facility] Diagnoses Acute midline low back pain with right-sided sciatica Procedures CONSULT TO PHYSICAL THERAPY PHYSICAL THERAPY EVALUATION HIGH COMPLEX 45 MINS Ulices Taveras MD [address] [place] [address] [facility] [address] [address] Referral ID Status Reason Start Date Expiration Date Visits Requested Visits Authorized [id number] Authorized PCP Requested Referral Auto-Generate d Referral 04/25/2022 04/25/2023 99 99 Specialty Diagnoses / Procedures Referred By Contac t Referred To Contact Pain Management Diagnoses Bilateral low back pain with sciatica, sciatica laterality unspecified, unspecified chronicity Procedures CONSULT TO [facility]) Ulices Taveras MD [address] [place] [address] [id number] Referral ID Status Reason Start Date Expiration Date Visits Requested Visits Authorized [id number] Ref Not Required PCP Requested Referral 04/28/2022 04/28/2023 1 1 Specialty Diagnoses / Procedures Referred By Contac t Referred To Contact [facility] Diagnoses Fall, initial encounter Gait disturbance Procedures CONSULT TO PHYSICAL THERAPY PHYSICAL THERAPY EVALUATION HIGH COMPLEX 45 MINS Emeli Hollins MD [address] [address] [facility] [address] [address] Referral ID Status Reason Start Date Expiration Date Visits Requested Visits Authorized [id number] Authorized PCP Requested Referral Auto-Generate d Referral 10/31/2022 10/31/2023 99 99 Specialty Diagnoses / Procedures Referred By Contac t Referred To Contact MR IMAGING Diagnoses Cognitive impairment, mild, so stated Procedures MRI 3D POST PROCESSING 3D RENDERING W/INTERP&POSTPROC DIFF WORK STATION Emeli Hollins MD [address] [place] [address] Mr Imaging Referral ID Status Reason Start Date Expiration Date Visits Requested Visits Authorized [id number] Pending Review Auto-Generat ed Referral 10/31/2022 11/30/2023 1 1 Specialty Diagnoses / Procedures Referred By Contac t Referred To Contact MR IMAGING Diagnoses Cognitive impairment, mild, so stated Procedures MRI BRAIN W QUANT WO IVCON MRI BRAIN BRAIN STEM W/O CONTRAST MATERIAL Emeli Hollins MD [address] [place] [address] Mr Imaging Referral ID Status Reason Start Date Expiration Date Visits Requested Visits Authorized [id number] Pending Review Auto-Generat ed Referral 10/31/2022 11/30/2023 1 1 Referral ID Status Reason Start Date Expiration Date V isits Requested Visits Authorized [id number] Closed Auto-Generate d Referral 10/31/2022 11/30/2023 1 1 Referral ID Status Reason Start Date Expiration Date V isits Requested Visits Authorized [id number] Closed Auto-Generate d Referral 10/31/2022 11/30/2023 1 1 Specialty Diagnoses / Procedures Referred By Contac t Referred To Contact MR IMAGING Diagnoses Cerebral infarction, unspecified mechanism (HCC) Procedures MRI BRAIN WO IVCON MRI BRAIN BRAIN STEM W/O CONTRAST MATERIAL Jay Miranda MD [address] [place] [address] Mr Imaging Referral ID Status Reason Start Date Expiration Date Visits Requested Visits Authorized [id number] Pending Review Auto-Generat ed Referral 12/09/2022 01/08/2024 1 1 Additional Source Comments (unrecognized sect ion and content) No Status Records FoundNo Status Records FoundNo Status Records FoundNo Status Records FoundNo Status Records FoundNo Status Records Found INFORMATION SOURCE (unrecogn ized section and content) DATE CREATED AUTHOR 10/20/2021 [facility] DATE CREATED AUTHOR AUTHOR'S ORGANIZ ATION 05/27/2022 [facility] DATE CREATED AUTHOR AUTHOR'S ORGANIZ ATION 06/10/2022 [facility] nter DATE CREATED AUTHOR AUTHOR'S ORGANIZ ATION 11/17/2023 [facility] DATE CREATED AUTHOR AUTHOR'S ORGANIZ ATION 05/24/2024 [facility] DATE CREATED AUTHOR AUTHOR'S ORGANIZ ATION 08/02/2025 [facility] Source Comments (unrecognize d section and content) In the event this informatio n is protected by the Federal Confidentiality of Alcohol and Drug Abuse Patient Records regulations: The Federal rules restrict any use of the information to criminally investigate or prosecute any alcohol or drug abuse patient.[facility] the event this information is protected by the Federal Confidentiality of Alcohol and Drug Abuse Patient Records regulations: The Federal rules restrict any use of the information to criminally investigate or prosecute any alcohol or drug abuse patient.[facility] the event this information is protected by the Federal Confidentiality of Alcohol and Drug Abuse Patient Records regulations: The Federal rules restrict any use of the information to criminally investigate or prosecute any alcohol or drug abuse patient.[facility] [facility] the event this information is protected by the Federal Confidentiality of Alcohol and Drug Abuse Patient Records regulations: The Federal rules restrict any use of the information to criminally investigate or prosecute any alcohol or drug abuse patient.[facility] the event this information is protected by the Federal Confidentiality of Alcohol and Drug Abuse Patient Records regulations: The Federal rules restrict any use of the information to criminally investigate or prosecute any alcohol or drug abuse patient.[facility]igh[facility] the event this information is protected by the Federal Confidentiality of Alcohol and Drug Abuse Patient Records regulations: The Federal rules restrict any use of the information to criminally investigate or prosecute any alcohol or drug abuse patient.[facility] the event this information is protected by the Federal Confidentiality of Alcohol and Drug Abuse Patient Records regulations: The Federal rules restrict any use of the information to criminally investigate or prosecute any alcohol or drug abuse patient.[facility] the event this information is protected by the Federal Confidentiality of Alcohol and Drug Abuse Patient Records regulations: The Federal rules restrict any use of the information to criminally investigate or prosecute any alcohol or drug abuse patient.[facility]ighIn the event this information is protected by the Federal Confidentiality of Alcohol and Drug Abuse Patient Records regulations: The Federal rules restrict any use of the information to criminally investigate or prosecute any alcohol or drug abuse patient.[facility]ighIn the event this information is protected by the Federal Confidentiality of Alcohol and Drug Abuse Patient Records regulations: The Federal rules restrict any use of the information to criminally investigate or prosecute any alcohol or drug abuse patient.[facility]ighIn the event this information is protected by the Federal Confidentiality of Alcohol and Drug Abuse Patient Records regulations: The Federal rules restrict any use of the information to criminally investigate or prosecute any alcohol or drug abuse patient.[facility]ighIn the event this information is protected by the Federal Confidentiality of Alcohol and Drug Abuse Patient Records regulations: The Federal rules restrict any use of the information to criminally investigate or prosecute any alcohol or drug abuse patient.[facility]ighIn the event this information is protected by the Federal Confidentiality of Alcohol and Drug Abuse Patient Records regulations: The Federal rules restrict any use of the information to criminally investigate or prosecute any alcohol or drug abuse patient.[facility]ighIn the event this information is protected by the Federal Confidentiality of Alcohol and Drug Abuse Patient Records regulations: The Federal rules restrict any use of the information to criminally investigate or prosecute any alcohol or drug abuse patient.[facility]ighIn the event this information is protected by the Federal Confidentiality of Alcohol and Drug Abuse Patient Records regulations: The Federal rules restrict any use of the information to criminally investigate or prosecute any alcohol or drug abuse patient.[facility]ighIn the event this information is protected by the Federal Confidentiality of Alcohol and Drug Abuse Patient Records regulations: The Federal rules restrict any use of the information to criminally investigate or prosecute any alcohol or drug abuse patient.[facility]ighIn the event this information is protected by the Federal Confidentiality of Alcohol and Drug Abuse Patient Records regulations: The Federal rules restrict any use of the information to criminally investigate or prosecute any alcohol or drug abuse patient.[facility]ighIn the event this information is protected by the Federal Confidentiality of Alcohol and Drug Abuse Patient Records regulations: The Federal rules restrict any use of the information to criminally investigate or prosecute any alcohol or drug abuse patient.[facility]ighIn the event this information is protected by the Federal Confidentiality of Alcohol and Drug Abuse Patient Records regulations: The Federal rules restrict any use of the information to criminally investigate or prosecute any alcohol or drug abuse patient.[facility]ighIn the event this information is protected by the Federal Confidentiality of Alcohol and Drug Abuse Patient Records regulations: The Federal rules restrict any use of the information to criminally investigate or prosecute any alcohol or drug abuse patient.[facility]ighIn the event this information is protected by the Federal Confidentiality of Alcohol and Drug Abuse Patient Records regulations: The Federal rules restrict any use of the information to criminally investigate or prosecute any alcohol or drug abuse patient.[facility]ighIn the event this information is protected by the Federal Confidentiality of Alcohol and Drug Abuse Patient Records regulations: The Federal rules restrict any use of the information to criminally investigate or prosecute any alcohol or drug abuse patient.[facility]ighIn the event this information is protected by the Federal Confidentiality of Alcohol and Drug Abuse Patient Records regulations: The Federal rules restrict any use of the information to criminally investigate or prosecute any alcohol or drug abuse patient.[facility]ighIn the event this information is protected by the Federal Confidentiality of Alcohol and Drug Abuse Patient Records regulations: The Federal rules restrict any use of the information to criminally investigate or prosecute any alcohol or drug abuse patient.[facility]ighIn the event this information is protected by the Federal Confidentiality of Alcohol and Drug Abuse Patient Records regulations: The Federal rules restrict any use of the information to criminally investigate or prosecute any alcohol or drug abuse patient.[facility]ighIn the event this information is protected by the Federal Confidentiality of Alcohol and Drug Abuse Patient Records regulations: The Federal rules restrict any use of the information to criminally investigate or prosecute any alcohol or drug abuse patient.[facility]In the event this information is protected by the Federal Confidentiality of Alcohol and Drug Abuse Patient Records regulations: The Federal rules restrict any use of the information to criminally investigate or prosecute any alcohol or drug abuse patient.[facility]ighIn the event this information is protected by the Federal Confidentiality of Alcohol and Drug Abuse Patient Records regulations: The Federal rules restrict any use of the information to criminally investigate or prosecute any alcohol or drug abuse patient.[facility]ighIn the event this information is protected by the Federal Confidentiality of Alcohol and Drug Abuse Patient Records regulations: The Federal rules restrict any use of the information to criminally investigate or prosecute any alcohol or drug abuse patient.[facility] Reason for Visit (unrecogniz ed section and content) Reason Comments Received Outside Medical Records Reason Comments Patient Education Reason Comments Radiology MRI Specialty Diagnoses / Procedures Referred By Contac t Referred To Contact MR IMAGING Diagnoses Exocrine pancreatic insufficiency Procedures MRI PANCREAS FUNCTION WO/W IVCON MRI ABDOMEN W/O & W/CONTRAST MATERIAL Azam Oconnell MD [address] [place] [address] Mr Imaging Referral ID Status Reason Start Date Expiration Date V isits Requested Visits Authorized [id number] Closed Auto-Generate d Referral 12/15/2021 01/14/2023 1 1 Reason Comments Hip Pain Right hip pain, repo rts he was at [facility] and had an xray a [...] STEM W/O CONTRAST MATERIAL Emeli Hollins MD [address] [place] [address] Mr Imaging Referral ID Status Reason Start Date Expiration Date V isits Requested Visits Authorized [id number] Closed Auto-Generate d Referral 10/31/2022 11/30/2023 1 1 Reason Comments Results Reason Comments Forms Reason Comments New Patient Evaluation Reason Comments Follow Up Reason Comments F/U 6 months Pt took meds Care Teams (unrecognized sec tion and content) Artist Suspect Relationship Specialty Start Date End Date Ulices Taveras PCP - General Family Practice 01/07/14 Artist Suspect Relationship Specialty Start Date End Date Ulices Taveras MD PCP - General Family Practice 01/07/14 Artist Suspect Relationship Specialty Start Date End Date Ulices Taveras MD PCP - General Family Practice 01/07/14 Artist Suspect Relationship Specialty Start Date End Date Ulices Taveras MD PCP - General Family Practice 01/07/14 Artist Suspect Relationship Specialty Start Date End Date Ulices Taveras PCP - General 11/20/18 Artist Suspect Relationship Specialty Start Date End Date Ulices Taveras MD PCP - General Family Practice 01/07/14 Artist Suspect Relationship Specialty Start Date End Date Ulices Taveras MD PCP - General Family Practice 01/07/14 Artist Suspect Relationship Specialty Start Date End Date Ulices Taveras MD PCP - General Family Practice 01/07/14 Artist Suspect Relationship Specialty Start Date End Date Ulices Taveras MD PCP - General Family Practice 01/07/14 Artist Suspect Relationship Specialty Start Date End Date Ulices Taveras MD PCP - General Family Practice 01/07/14 Artist Suspect Relationship Specialty Start Date End Date Ulices Taveras MD PCP - General Family Practice 01/07/14 Artist Suspect Relationship Specialty Start Date End Date Ulices Taveras MD PCP - General Family Practice 01/07/14 Artist Suspect Relationship Specialty Start Date End Date Ulices Taveras MD PCP - General Family Medicine 01/07/14 Artist Suspect Relationship Specialty Start Date End Date Ulices Taveras MD PCP - General Family Medicine 01/07/14 Artist Suspect Relationship Specialty Start Date End Date Ulices Taveras MD PCP - General Family Medicine 01/07/14 Artist Suspect Relationship Specialty Start Date End Date Ulices Taveras MD PCP - General Family Medicine 01/07/14 Artist Suspect Relationship Specialty Start Date End Date Ulices Taveras MD PCP - General Family Medicine 01/07/14 Artist Suspect Relationship Specialty Start Date End Date Ulices Taveras MD PCP - General Family Medicine 01/07/14 Artist Suspect Relationship Specialty Start Date End Date Ulices Taveras MD PCP - General Family Medicine 01/07/14 Artist Suspect Relationship Specialty Start Date End Date Ulices Taveras MD PCP - General Family Medicine 01/07/14 Artist Suspect Relationship Specialty Start Date End Date Ulices Taveras MD PCP - General Family Medicine 01/07/14 Team Status: Active Member Role Status Dates Ulices Taveras [facility] Family Provider Active Dr. Kem Davila MD Primary Care Provider Active Team Status: Inactive Member Role Status Dates Dr. Kem Davila MD Primary Care Pro vider, Attending Provider, Referring Provider Active Team Status: Inactive Member Role Status Dates Dr. Kem Davila MD Primary Care Provider Active Dr. Jeaneth Guillaume MD Emergency Provider Active Artist Suspect Relationship Specialty Start Date End Date Kem Davila MD [address] [place] [address] PCP - General Internal Medicine 10/18/22 Joseph Link, MUSIC DEPARTMENT CHAIR.[employer] [address] [place], [place] [address] Cardiology 07/18/23 Tian Campbell MD [address] [place] [address] Gastroenterology 07/18/23 Team Status: Active Member Role/Relationship Status Dates Ulices OLEA Family Provider Active Dr. Kem Davila MD Primary Care Provider Active Team Status: Inactive Member Role/Relationship Status Dates Dr. Kem Davila MD Primary Care Provider Active Start: May 12, 2025 End: May 12, 2025 Dr. Kem Davila MD Referring Provider Active Start: May 12, 2025 End: May 12, 2025 Joseph Link HEALTH SCIENCES MANAGER, HEALTH SCIENCES MANAGER-C Attending Provider Active S tart: May 12, 2025 End: May 12, 2025 Team Status: Active Member Role/Relationship Status Dates Dr. Kem Davila MD Primary Care Provider Active Team Status: Inactive Member Role/Relationship Status Dates Dr. Kem Davila MD Primary Care Provider Active Start: May 19, 2025 End: May 19, 2025 Dr. Jayson Ellison , DO Emergency Provider Activ e Start: May 19, 2025 End: May 19, 2025 Team Status: Inactive Member Role/Relationship Status Dates Dr. Kem Davila MD Primary Care Provider Active Start: May 20, 2025 End: May 20, 2025 Dr. Kem Davila MD Referring Provider Active Start: May 20, 2025 End: May 20, 2025 Joseph Link HEALTH SCIENCES MANAGER, HEALTH SCIENCES MANAGER-C Attending Provider Active S tart: May 20, 2025 End: May 20, 2025 Team Status: Inactive Member Role/Relationship Status Dates Dr. Kem Davila MD Primary Care Provider Active Start: May 19, 2025 End: May 19, 2025 Dr. Jayson Ellison , DO Attending Provider Activ e Start: May 19, 2025 End: May 19, 2025 Dr. Jayson Ellison , DO Emergency Provider Activ e Start: May 19, 2025 End: May 19, 2025 Team Status: Inactive Member Role/Relationship Status Dates Dr. Kem Davila MD Primary Care Provider Active Start: May 21, 2025 End: May 21, 2025 Joseph Link HEALTH SCIENCES MANAGER, HEALTH SCIENCES MANAGER-C Attending Provider Active S tart: May 21, 2025 End: May 21, 2025 Joseph Link HEALTH SCIENCES MANAGER, HEALTH SCIENCES MANAGER-C Referring Provider Active S tart: May 21, 2025 End: May 21, 2025 Team Status: Active Member Role/Relationship Status Dates Dr. Kem Davila MD Primary Care Provider Active Start: May 21, 2025 Dr. Baldev Freed MD Attending Provider Active S tart: May 21, 2025 Team Status: Active Member Role/Relationship Status Dates Dr. Kem Davila MD Primary Care Provider Active Start: May 27, 2025 Joseph H Nikolay HEALTH SCIENCES MANAGER, HEALTH SCIENCES MANAGER-C Attending Provider Active S tart: May 27, 2025 Joseph H Roof HEALTH SCIENCES MANAGER, HEALTH SCIENCES MANAGER-C Referring Provider Active S tart: May 27, 2025 Team Status: Inactive Member Role/Relationship Status Dates Dr. Kem Davila MD Primary Care Provider Active Start: May 27, 2025 End: May 27, 2025 Joseph H Roof HEALTH SCIENCES MANAGER, HEALTH SCIENCES MANAGER-C Attending Provider Active S tart: May 27, 2025 End: May 27, 2025 Joseph H Roof HEALTH SCIENCES MANAGER, HEALTH SCIENCES MANAGER-C Referring Provider Active S tart: May 27, 2025 End: May 27, 2025 Team Status: Inactive Member Role/Relationship Status Dates Dr. Kem Davila MD Primary Care Provider Active Start: June 09, 2025 End: June 09, 2025 Joseph H Nikolay HEALTH SCIENCES MANAGER, HEALTH SCIENCES MANAGER-C Attending Provider Active S tart: June 09, 2025 End: June 09, 2025 Joseph H Roof HEALTH SCIENCES MANAGER, HEALTH SCIENCES MANAGER-C Referring Provider Active S tart: June 09, 2025 End: June 09, 2025 Team Status: Active Member Role/Relationship Status Dates Dr. Kem Davila MD Primary Care Provider Active Start: June 09, 2025 Dr. Gary Stern MD Attending Provider Active Start: June 09, 2025 Joseph Link HEALTH SCIENCES MANAGER, HEALTH SCIENCES MANAGER-C Referring Provider Active S tart: June 09, 2025 Team Status: Inactive Member Role/Relationship Status Dates Dr. Kem Davila MD Primary Care Provider Active Start: June 20, 2025 End: June 20, 2025 NESHA Armas Attending Provider Active St art: June 20, 2025 End: June 20, 2025 NESHA Armas Referring Provider Active St art: June 20, 2025 End: June 20, 2025 Team Status: Active Member Role/Relationship Status Dates Dr. Kem Davila MD Primary Care Provider Active Start: June 20, 2025 Dr. London Estrada MD Attending Provider Active S tart: June 20, 2025 Team Status: Active Member Role/Relationship Status Dates Dr. Kem Davila MD Primary care physician Active Team Status: Inactive Member Role/Relationship Status Dates Dr. Kem Davila MD Primary care physician Active Start: May 12, 2025 End: May 12, 2025 Dr. Kem Davila MD Referring Provider Active Start: May 12, 2025 End: May 12, 2025 Joseph Link HEALTH SCIENCES MANAGER, HEALTH SCIENCES MANAGER-C Attending physician Active Start: May 12, 2025 End: May 12, 2025 Team Status: Inactive Member Role/Relationship Status Dates Dr. Kem Davila MD Primary care physician Active Start: May 19, 2025 End: May 19, 2025 Dr. Jayson Ellison DO Attending physician Active Start: May 19 End: May 19, 2025 Dr. Jayson Ellison DO Emergency Department Physician Active Start: May 19, 2025 End: May 19, 2025 Team Status: Inactive Member Role/Relationship Status Dates Dr. Kem Davila MD Primary care physician Active Start: May 20, 2025 End: May 20, 2025 Dr. Kem Davila MD Referring Provider Active Start: May 20, 2025 End: May 20, 2025 Joseph Link HEALTH SCIENCES MANAGER, HEALTH SCIENCES MANAGER-C Attending physician Active Start: May 20, 2025 End: May 20, 2025 Team Status: Inactive Member Role/Relationship Status Dates Dr. Kem Davila MD Primary care physician Active Start: May 21, 2025 End: May 21, 2025 Joseph Link HEALTH SCIENCES MANAGER, HEALTH SCIENCES MANAGER-C Attending physician Active Start: May 21, 2025 End: May 21, 2025 Joseph Link HEALTH SCIENCES MANAGER, HEALTH SCIENCES MANAGER-C Referring Provider Active S tart: May 21, 2025 End: May 21, 2025 Team Status: Active Member Role/Relationship Status Dates Dr. Kem Davila MD Primary care physician Active Start: May 21, 2025 Dr. Baldev Freed MD Attending physician Active Start: May 21, 2025 Team Status: Inactive Member Role/Relationship Status Dates Dr. Kem Davila MD Primary care physician Active Start: May 27, 2025 End: May 27, 2025 Joseph Link HEALTH SCIENCES MANAGER, HEALTH SCIENCES MANAGER-C Attending physician Active Start: May 27, 2025 End: May 27, 2025 Joseph Link HEALTH SCIENCES MANAGER, HEALTH SCIENCES MANAGER-C Referring Provider Active S tart: May 27, 2025 End: May 27, 2025 Team Status: Inactive Member Role/Relationship Status Dates Dr. Kem Davila MD Primary care physician Active Start: June 09, 2025 End: June 09, 2025 Joseph Link HEALTH SCIENCES MANAGER, HEALTH SCIENCES MANAGER-C Attending physician Active Start: June 09, 2025 End: June 09, 2025 Joseph Link HEALTH SCIENCES MANAGER, HEALTH SCIENCES MANAGER-C Referring Provider Active S tart: June 09, 2025 End: June 09, 2025 Team Status: Active Member Role/Relationship Status Dates Dr. Kem Davila MD Primary care physician Active Start: June 09, 2025 Dr. Gary Stern MD Attending physician Active Start: June 09, 2025 Joseph Link HEALTH SCIENCES MANAGER, HEALTH SCIENCES MANAGER-C Referring Provider Active S tart: June 09, 2025 Team Status: Inactive Member Role/Relationship Status Dates Dr. Kem Davila MD Primary care physician Active Start: June 20, 2025 End: June 20, 2025 NESHA Armas Attending physician Active S tart: June 20, 2025 End: June 20, 2025 NESHA Armas Referring Provider Active St art: June 20, 2025 End: June 20, 2025 Team Status: Active Member Role/Relationship Status Dates Dr. Kem Davila MD Primary care physician Active Start: June 20, 2025 Dr. London Etsrada MD Attending physician Active Start: June 20, 2025 NESHA Armas Referring Provider Active St art: June 20, 2025 Team Status: Active Member Role/Relationship Status Dates Dr. Kem Davila MD Primary care physician Active Start: June 28, 2025 NESHA Armas Attending physician Active S tart: June 28, 2025 NESHA Armas Referring Provider Active St art: June 28, 2025 Team Status: Inactive Member Role/Relationship Status Dates Dr. Kem Davila MD Primary care physician Active Start: July 14, 2025 End: July 14, 2025 Dr. Kem Davila MD Attending physician Active Start: July 14, 2025 End: July 14, 2025 Dr. Kem Davila MD Referring Provider Active Start: July 14, 2025 End: July 14, 2025 Team Status: Active Member Role/Relationship Status Dates Dr. Kem Davila MD Primary care physician Active Start: June 28, 2025 Dr. Baldev Freed MD Attending physician Active Start: June 28, 2025 NESHA Armas Referring Provider Active St art: June 28, 2025 Team Status: Active Member Role/Relationship Status Dates Dr. Kem Davila MD Primary care physician Active Start: June 28, 2025 NESHA Armas Attending physician Active S tart: June 28, 2025 NESHA Armas Referring Provider Active St art: June 28, 2025 Team Status: Inactive Member Role/Relationship Status Dates Dr. Kem Davila MD Primary care physician Active Start: July 14, 2025 End: July 14, 2025 Dr. Kem Davila MD Attending physician Active Start: July 14, 2025 End: July 14, 2025 Dr. Kem Davila MD Referring Provider Active Start: July 14, 2025 End: July 14, 2025 Team Status: Inactive Member Role/Relationship Status Dates Dr. Kem Davila MD Primary care physician Active Start: July 25, 2025 End: July 25, 2025 Dr. Kem Davila MD Referring Provider Active Start: July 25, 2025 End: July 25, 2025 Charlie JEFFRIES PA Attending physician Active St art: July 25, 2025 End: July 25, 2025 Goals (unrecognized section and content) Goals [...] BE BASED ON THE PRIMARY CLINICAL RECORDS. [email or web address] provides no warranty or guarantee of the accuracy or completeness of information in this document.
[2025-09-27 08:26] LABS: Hematocrit 42.4 % (40-54); Hemoglobin 13.8 g/dL (13.0-16.5); Immature Granulocytes Count 0.020 X10^3/uL (0.0-0.0); Mean Corp Hgb Conc 32.5 g/dL (32-36); Mean Corpuscular Volume 92.2 fL (80-94); Mean Platelet Vol. 10.5 fl (6.2-12.0); NRBC Flagged by Analyzer 0 % (0-5); Platelet Count 279 K/mm3 (150-450); RBC Distribution Width CV 13.1 % (11.6-14.6); RBC Distribution Width SD 43.8 fl (35.1-43.9); Red Blood Count 4.60 M/mm3 (4.6-6.2); White Blood Count 6.9 K/mm3 (4.4-11.0)
[2025-09-27 09:39] LABS: Creatinine, Urine (random) 139.00 mg/dL (39.00-259.00); Microalbumin,Random Urine 13.7 mg/L (<20 mg/L)
[2025-09-27 09:47] LABS: AST(SGOT) 28 U/L (<=37); Alanine Aminotransfer ALT/SGPT 31 U/L (<=46); Albumin, Serum 4.1 g/dL (3.4-4.8); Alkaline Phosphatase 99 U/L (40-129); Anion Gap 11 (5-15); BUN 14 mg/dL (4-19); BUN/Creat Ratio 14.7 RATIO (10-20); Calcium,Total 9.1 mg/dL (7.6-11.0); Carbon Dioxide 24.0 mmol/L (21.0-32.0); Chloride 105 mmol/L (98-108); Cholesterol 134 mg/dL (<=200); Globulin 2.9 g/dL (2.2-4.2); Glucose 139 mg/dL (70-99); Low Density Lipoprotein Calc. 76 mg/dL; PSA,Total- Diagnostic 0.37 ng/mL (0.00-4.00); Potassium 4.3 mmol/L (3.3-5.1); Triglycerides 98 mg/dL; Very Low Density Lipoprotein 20 mg/dL (5-40); cholesterol:hdl ratio screen 3.43
== END | disposition home or self-care (01) ==
LOC: LAB 07:58
PROVIDERS: PCP Internal Medicine; Referring Provider Internal Medicine; Visit Provider Internal Medicine
DX: I10 Essential (primary) hypertension (principal); E11.9 Type 2 diabetes mellitus without complications; I25.10 Atherosclerotic heart disease of native coronary artery without angina pectoris; N40.0 Benign prostatic hyperplasia without lower urinary tract symptoms
CPT/HCPCS: 36415; 80053; 80061; 82043; 82570; 84153; 85025